=== PATIENT | female | born 1965 | race Caucasian/White ===

== ENCOUNTER 2023-10-21 12:17 | Emergency (ER) | payer MEDICARE, SELFPAY ==
[2023-10-21 12:35] VITALS: BP 134/79; PULSE 88; TEMP 37.3; O2SAT 97; BMI 33.0
--- NOTE | 2023-10-21 12:45 | PC.NURSE ---
pt scratched left lower leg due to an itch. scratched over varicose vein, area started to bleed. pt denies any pain.
--- NOTE | 2023-10-22 11:33 | ED_ITS ---
HPI HPI - General Adult General Chief complaint: Extremity Problem, Nontraumatic Stated complaint: LOWER EXTREMITY LEFT INJURY Time Seen by Provider: 10/21/23 12:38 Source: patient Mode of arrival: Wheelchair Limitations: no limitations History of Present Illness HPI narrative: 58-year-old female to the emergency department with chief complaint of bleeding from her leg. Patient reports that she scratched her leg and believes that she scratched open a varicose vein. She reports a significant amount of bleeding from the site that was not controlled with pressure at home prompting her ED visit. She is not on any blood thinners. She is otherwise at her baseline health. Related Data Home Medications ?Medication ?Instructions ?Recorded ?Confirmed albuterol sulfate 90 mcg/actuation inhalation 10/21/23 aerosol inhaler (Yi Chang Ou Sai IT HFA) aspirin 81 mg chewable tablet 81 mg PO DAILY 10/21/23 10/21/23 (Issac Chewable Low Dose Aspirin) atorvastatin 20 mg tablet mg 10/21/23 metoprolol succinate 100 mg mg PO 10/21/23 tablet,extended release 24 hr Allergies Allergy/AdvReac Type Severity Reaction Status Date / Time Penicillins Allergy Mild Rash Verified 10/21/23 12:39 prednisone Allergy Mild Rash Verified 10/21/23 12:39 Opioid HPI Opioid Management Most Recent Opioid Data: No Data to Display Review of Systems ROS Status of ROS 10 or more systems reviewed and unremark able except as noted in history and below Exam Narrative Exam Narrative: VITALS: I have reviewed the triage vital signs. GENERAL: Well developed, well appearing adult in no acute distress. NEURO: Alert and oriented. Moves all extremities. Face is symmetric and expressive. EYES: PERRL. No scleral icterus or conjunctival injection. No discharge. HENT: Normocephalic, atraumatic. Hearing is grossly intact. Nares grossly patent and without discharge. Mucous membranes moist. NECK: No JVD. Patient moves neck without restriction. Left lower extremity: DP and PT pulses are intact. Limb is similar color and temperature to contralateral extremity. Over the mid lateral lower leg there is a small superficial vein which appears to be excoriated, no active bleeding at this time. No evidence of infection. SKIN: Warm and dry. Normal turgor. No rash or lesions appreciated. PSYCH: Mood, affect, and interaction is appropriate to the setting. Constitutional Vital Signs, click to edit/add: Last Vital Signs Temp 99.2 F 10/21/23 12:35 Pulse 88 10/21/23 12:35 Resp 18 10/21/23 12:35 BP 134/79 10/21/23 12:35 Pulse Ox 97 10/21/23 12:35 O2 Del Method Room Air 10/21/23 12:35 Course Vital Signs Vital signs: Vital Signs Temperature 99.2 F 10/21/23 12:35 Pulse Rate 88 10/21/23 12:35 Respiratory Rate 18 10/21/23 12:35 Blood Pressure 134/79 10/21/23 12:35 Pulse Oximetry 97 10/21/23 12:35 Oxygen Delivery Method Room Air 10/21/23 12:35 Temperature 99.2 F 10/21/23 12:35 Pulse Rate 88 10/21/23 12:35 Respiratory Rate 18 10/21/23 12:35 Blood Pressure 134/79 10/21/23 12:35 Pulse Oximetry 97 10/21/23 12:35 Oxygen Delivery Method Room Air 10/21/23 12:35 Medical Decision Making MDM Narrative Medical decision making narrative: 58-year-old female with bleeding to her leg. Vital stable, the patient is afebrile. Not on blood thinners. The lower extremity is neurovascularly intact. There is a small superficial varicose vein which appears to be the previous source of bleeding. Area was cleansed and prepped by nursing staff. Several layers of skin glue were applied to control the bleeding and provide a protective barrier. Small dressing was placed. Return precautions were discussed. All questions were answered. The patient was discharged home. Discharge Plan Discharge Stand Alone Forms: Portal Instructions Chief Complaint: Extremity Problem, Nontraumatic Clinical Impression: Bleeding from varicose vein Patient Disposition: Home, Self-Care Time of Disposition Decision: 12:49 Condition: Good Mode of Transportation: Private Vehicle Prescriptions / Home Meds: No Action albuterol sulfate [Ventolin HFA] 90 mcg/actuation HFA aerosol inhaler INHALATION atorvastatin 20 mg tablet metoprolol succinate 100 mg tablet extended release 24 hr PO aspirin [Issac Chewable Aspirin] 81 mg tablet,chewable 81 mg PO DAILY Print Language: Sami Instructions: Venous Insufficiency (DC) Additional Instructions: If rebleeding occurs hold steady pressure for 20 to 30 minutes over the area. If it continues to bleed return to the ER. Referrals: Estefani Em MD [Primary Care Provider] - 1 week Discharge Date/Time: 10/21/23 13:02
== END 2023-10-21 13:02 | disposition home or self-care (01) ==
PROVIDERS: Emergency Provider Student in an Organized Health Care Education/Training Program; PCP Family Medicine
DX: I83.892 Varicose veins of left lower extremity with other complications (principal)
CPT/HCPCS: 12001; 99281

== ENCOUNTER 2024-05-28 09:05 | Outpatient (OUT) | payer MEDICARE, SELFPAY ==
[2024-05-28 09:42] LABS: Basophils Percent Auto 0.2 % (0.2-2.0); Eosinophils Absolute Auto 0.1 10^3/uL (0.0-0.7); Eosinophils Percent Auto 1.1 % (0.9-7.0); Hematocrit 40.2 % (36.0-48.0); Hemoglobin 13.2 g/dL (12.0-16.0); Immature Granulocytes Abs Auto 0.01 10^3/uL (0.00-0.03); Immature Granulocytes Pct Auto 0.2 % (0.0-0.5); Lymphocytes Absolute Auto 2.3 10^3/uL (1.2-3.8); Lymphocytes Percent Auto 34.6 % (20.5-60.0); Mean Corpuscular HGB Conc 32.8 g/dL (29.9-35.2); Mean Corpuscular Hemoglobin 30.6 pg (26.7-34.0); Mean Corpuscular Volume 93.1 fL (81.0-99.0); Mean Platelet Volume 11.5 fL (9.5-13.5); Monocytes Absolute Auto 0.6 10^3/uL (0.3-0.8); Monocytes Percent Auto 8.4 % (1.7-12.0); Neutrophils Absolute Auto 3.7 10^3/uL (1.4-6.5); Neutrophils Percent Auto 55.5 % (43.0-75.0); Platelet Count 220 10^3/uL (150-450); Red Blood Count 4.32 10^6/uL (4.20-5.40); Red Cell Distribution Width 13.2 % (11.0-15.0); White Blood Count 6.6 10^3/uL (4.0-11.0)
[2024-05-28 10:32] LABS: Alanine Aminotransferase 15 U/L (14-59); Albumin Globulin Ratio 0.9; Albumin Level 3.5 g/dL (3.4-5.0); Alkaline Phosphatase 115 U/L (46-116); Anion Gap 10.2; Aspartate Amino Transferase 10 U/L (15-37); BUN Creatinine Ratio 18.8; Bilirubin Total 0.3 mg/dL (0.2-1.0); Calcium 8.6 mg/dL (8.5-10.1); Chloride 108 mmol/L (98-107); Chol HDL Ratio 2.8; Cholesterol 143 mg/dL (<=200); Estimated GFR (African America >60 (>=60 mL/min/1.73m^2); Estimated GFR (Non-African Ame >60 (>=60 mL/min/1.73m^2); Globulin 3.7 g/dL; Glucose 103 mg/dL (74-106); HDL Cholesterol 52 mg/dL (40-60); LDL Cholesterol Calculated 79.4 mg/dL; Potassium 4.2 mmol/L (3.5-5.1); Sodium 143 mmol/L (136-145); TSH W/ REFLEX FT4 2.283 uIU/mL (0.358-3.740); Total Protein 7.2 g/dL (6.4-8.2); Triglycerides 58 mg/dL (<=150); VLDL CHOLESTEROL 11.6 mg/dL
--- OUTSIDE RECORDS SUMMARY | 2024-05-29 09:22 | XMS_ITS | CCD ---
Author Organization [facility] Care Team Providers Care Operations Manager Station Name Role Phone Clair Dahl MD Primary Care Provider Kareem Lagunas Unavailable Clair Dahl MD Primary Care Provider [phone] Clair Dahl MD Primary Care Provider Clair Dahl Unavailable MISC, DR WEBB Attending Unavailable NABILA, DR CLAIR Wisdom Primary Care Unavailable MISC, DR WEBB Admitting Unavailable SARAH JEAN Admitting Unavailable SARAH JEAN Attending Unavailable NABILA, DR CLAIR Wisdom Primary Care Unavailable NIA BARAKAT Attending Unavailable YUVAL, NIA Consulting Unavailable NIA BARAKAT Admitting Unavailable NABILA, DR CLAIR Wisdom Primary Care Unavailable NANCY MARTEL Consulting Unavailable MARKER ., DR HARDING Consulting Unavailable MARKER ., DR HARDING Admitting Unavailable MARKER ., DR HARDING Attending Unavailable DAHL, DR CLAIR Wisdom Primary Care Unavailable CONRAD ., ALDEN Consulting Unavailable BRIEN, JAMES Consulting Unavailable NABILA, DR CLAIR Wisdom Primary Care Unavailable MISC, DR WEBB Attending Unavailable MISC, DR WEBB Consulting Unavailable MISC, DR WEBB Admitting Unavailable ZIEBER, DR MAGGI Griffiths Consulting Unavailable SARAH JEAN Admitting Unavailable SARAH JEAN Attending Unavailable NABILA, DR CLAIR Wisdom Primary Care Unavailable SARAH JEAN Consulting Unavailable SAMMIE ARTHUR Consulting Unavailable SAARH JEAN Admitting Unavailable SARAH JEAN Attending Unavailable MOBILE, DR ALONSO Shelley Consulting Unavailable NABILA, DR CLAIR Wisdom Primary Care Unavailable SARAH JEAN Consulting Unavailable MD Clair Dahl Primary Care Provider [phone] DO Tuan Gonzalez Attending Provider [phone] Clair Dahl MD Primary Care Provider GIOVANI MARIA Attending Unavailable GIOVANI MARIA Attending Unavailable GIOVANI MARIA Attending Unavailable GIOVANI MARIA Attending Unavailable GIOVANI MARIA Attending Unavailable CAROLINE CARRION Attending Unavailable CLAIR DAHL Primary Care Unavailable CLAIR DAHL Primary Care Unavailable VIJAY ACUNA Attending Unavailable CAROLINE CARRION Attending Unavailable CLAIR DAHL Primary Care Unavailable ERIKA BUCKNER Attending Unavailable CLAIR DAHL Primary Care Unavailable CLAIR DAHL Primary Care Unavailable CAROLINE CARRION Referring Unavailable CAROLINE CARRION Attending Unavailable ACUNA, VIRENKUMAR MBan Referring Unavailable ACUNAYOEL NEGRETENKJULITO MBan Attending Unavailable CLAIR DAHL Primary Care Unavailable Tuan Gonzalez Admitting Unavailable Tuan Gonzalez Attending Unavailable Clair Dahl Primary Care Unavailable Clair Dahl Admitting Unavailable Clair Dahl Attending Unavailable Clair Dahl MD Attending Provider Allergies Allergy Classification Reported Allergen(s) Allergy Type Date of Onset Reaction(s) Facility Corticosteroids (1 source) predniSONE Drug Allergy 07-03-19 [facility] Penicillins (antibiotic) (1 source) Penicillins Drug Allergy 07-03-19 Unknown Reaction [facility] (18 sources) Penicillins; Translations: [PENICILLINS] Propensity to adverse reactions to drug 01-06-20 15 Unknown Reaction [facility] (20 sources) Penicillins Propensity to adverse reactions to drug 01-06-20 15 Nausea and vomiting [facility] (4 sources) Penicillin V Drug Allergy Unknown [facility] Other (10 sources) Penicillin Drug Allergy Unknown [employer] [facility] Other (1 source) Penicillins Drug allergy (disorder) 07-16-19 14 [facility] (20 sources) predniSONE; Translations: [PREDNISONE] Drug Allergy 06-29-19 [facility] (1 source) Penicillins Drug allergy (disorder) 07-03-19 [facility] Repository (1 source) predniSONE Drug Allergy 07-03-19 [facility] Repository Medications Current Medications Medication Drug Class(es) Dates Sig (Normalized) Sig (Original) acetaminophen 325 mg / HYDROcodone bitartrate 5 mg oral tablet (20 sources) Opioid Agonist Start: 03-07-2024 End: 03-12-2024 take 1 tablet by mouth every eight hours as needed for pain HYDROcodone-aceta minophen (NORCO) 5-325 mg per tablet Indications: Acute bilateral low back pain without sciatica Take 1 (one) tablet by mouth every 8 (eight) hours as needed for pain Can cause drowsiness. . 15 tablet 03/07/2024 03/12/2024 Active Start: 09-08-2022 End: 09-15-2022 take 1 tablet by mouth every six hours as needed for pain HYDROcodone-acetaminophen (NORCO) 5-325 mg per tablet Indications: Status post insertion of spinal cord stimulator , Status post lumbar discectomy Take 1 (one) tablet by mouth every 6 (six) hours as needed for pain . 28 tablet 0 09/08/2022 09/15/2022 Active Start: 03-03-2021 End: 07-04-2021 HYDROcodone-acetaminophen (N ORCO) 5-325 mg per tablet Start: 02-24-2021 End: 05-23-2024 take 1 tablet by mouth three times daily as needed for pain Hydrocodone-Acetaminophen 5-325 mg table t Discontinued 1 TAB PO Three times daily as needed for Pain February 24, 2021 1:00am May 23, 2024 11:55am acetaminophen 325 mg / oxyCODONE hydrochloride 5 mg oral tablet (6 sources) Opioid Agonist Start: 08-25-2022 End: 08-28-2022 take 1 tablet by mouth once as needed, then take 2 tablets by mouth every six hours as needed oxyCODONE-acetaminophen (PERCOCET) 5-325 mg per tablet Indications: Failed back syndrome, lumbosacral , S/P insertion of spinal cord stimulator Take 1 (one) tablet to 2 (two) tablets by mouth every 6 (six) hours as needed Causes Drowsiness. . 20 tablet 0 08/25/2022 08/28/2022 Active Start: 08-24-2022 End: 08-25-2022 take 1-2 tablets by mouth every four hours as needed 1-2 tablet, Oral, Every 4 hours PRN, moderate to severe pain, Starting on [place] 08/24/22 at 1445 [] Initiate with 1 tablet oral every 4 hours prn moderate to severe pain. [] For unrelieved pain, may repeat one tablet oral dose within 60 minutes of initial dose. [] If pain is RELIEVED after repeat dose, change to two tablets of 5/325 mg oral every 4 hours prn moderate to severe pain. [] If pain is UNrelieved after repeat dose, or patient requires dose reduction, call physician. Start: 01-13-2022 End: 01-16-2022 oxyCODONE-acetaminophen (PER COCET) 5-325 mg per tablet Indications: Lumbar disc herniation with radiculopathy Take 1 (one) tablet by mouth every 6 (six) hours as needed for pain (Days supply per fill: 3) . 12 tablet 0 01/13/2022 01/16/2022 Active [id number] 200 actuat albuterol 0.09 mg/actuat metered dose inhaler (15 sources) beta2-Adrenergic Agonist Start: 06-20-2023 take 2 puff(s) by inhalation every four hours as needed Albuterol Sulfate 90 mcg/actuation HFA aerosol inhaler Active 2 PUFF INHALATION Every 4 hours June 20, 2023 12:00am [employer] puff Inhalation every 4 hrs prn; Note: Source Status: Start; Refills: 0; Qty: 1 Each; Provider: Nabila Wisdom Start: 06-19-2023 End: 06-18-2024 take 2 puff(s) by inhalation every four to six hours as needed for wheezing albuterol (Ventolin HFA) 90 mcg/actuation inhaler Inhale 2 (two) puffs every 4 to 6 hours as needed for wheezing or shortness of breath . 18 g 1 06/19/2023 06/18/2024 Active Start: 02-22-2023 take 2 puff(s) by in halation every four hours as needed Albuterol Sulfate HFA 108 (90 Base) MCG/ACT 2 puff Inhalation every 4 hrs prn Feb, Active aspirin 81 mg chewable tablet (20 sources) Platelet Aggregation Inhibitor, Nonsteroidal Anti-inflammatory Drug Start: 10-17-2023 End: 10-17-2023 aspirin 81 mg chewable tablet Chew and Swallow 1 (one) tablet (81 mg total) daily . 90 tablet 3 10/17/2023 Active Start: 06-20-2023 take 1 tablet by radha th once daily Aspirin 81 mg tablet,delayed release (DR/EC) Active 81 MG PO Daily June 20, 2023 12:00am Free[employer] tablet Orally Once a day; Note: Source Status: Taking; Provider: Nabila Jara ( ) End: 08-01-2022 take 1 tablet by mouth every twenty-four hours Aspirin 81 MG 1 tablet Orally Once a day Active atorvastatin 20 mg oral tablet (20 sources) HMG-CoA Reductase Inhibitor Start: 08-06-2021 End: 10-16-2024 take 1 tablet by mouth once daily Atorvastatin 20 mg tablet Active 1 TAB PO Daily June 20, 2023 12:00am [employer] tablet Orally Once a day; Note: Source Status: Taking; Provider: Nabila Jara ( ) azithromycin 250 mg oral tablet (1 source) Macrolide Antimicrobial Start: 02-22-2023 Azithromycin 250 MG as directed Orally 2 tabs po today, then 1 tab daily x 4 more days for 5 Feb, Active ciprofloxacin 500 mg oral tablet (4 sources) Quinolone Antimicrobial Start: 08-01-2022 End: 08-08-2022 take 1 tablet by mouth once daily ciprofloxacin HCl (CIPRO) 500 MG tablet Take 1 (one) tablet (500 mg total) by mouth daily for 7 days . 7 tablet 0 08/01/2022 08/08/2022 Active cyclobenzaprine hydrochloride 5 mg oral tablet (10 sources) Muscle Relaxant Start: 09-08-2022 End: 10-08-2022 take 1 tablet by mouth three times daily as needed for muscle spasms cyclobenzaprine (FLEXERIL) 5 MG tablet Indications: Failed back syndrome, lumbosacral , Status post lumbar discectomy Take 1 (one) tablet (5 mg total) by mouth 3 (three) times a day as needed for muscle spasms . 90 tablet 0 09/08/2022 10/08/2022 Active Start: 08-24-2022 End: 09-04-2022 take 1 tablet by mouth every eight hours cyclobenzaprine (FLEXERIL) 10 MG tablet Take 1 (one) tablet (10 mg total) by mouth every 8 (eight) hours Causes drowsiness. for 10 days . 30 tablet 0 08/25/2022 09/04/2022 Active Start: 01-13-2022 End: 01-23-2022 take 1 tablet by mouth three times daily as needed for muscle spasms cyclobenzaprine (FLEXERIL) 10 MG tablet Take 1 (one) tablet (10 mg total) by mouth 3 (three) times a day as needed for muscle spasms . 30 tablet 0 01/13/2022 01/23/2022 Active docusate sodium 50 mg / sennosides, fdc 8.6 mg oral tablet (4 sources) Start: 08-25-2022 End: 09-08-2022 take 2 tablets by mouth once daily for constipation senna-docusate (SENNA-S) 8.6-50 mg Take 2 (two) tablets by mouth daily For constipation for 14 days . 28 tablet 0 08/25/2022 09/08/2022 Active Start: 08-24-2022 End: 08-25-2022 take 1 tablet by mouth twice daily 2 tablet, Oral, 2 times daily, First dose on Christina 08/24/22 at 2100 [] Hold for loose stools. Do Not Crush or Chew if administering orally due to bitter taste. May be crushed if given via tube. doxycycline hyclate 100 mg oral tablet (4 sources) Tetracycline-class Drug Start: 11-02-2022 End: 11-09-2022 take 1 tablet by mouth twice daily doxycycline hyclate (VIBRA-TABS) 100 MG tablet Take 1 (one) tablet (100 mg total) by mouth 2 (two) times a day for 7 days . 14 tablet 0 11/02/2022 11/09/2022 Active empagliflozin 10 mg oral tablet (9 sources) Sodium-Glucose Cotransporter 2 Inhibitor Start: 09-01-2021 End: 12-29-2021 take 1 tablet by mouth once daily empagliflozin (Jardiance) 10 mg Tab Take 1 (one) tablet (10 mg total) by mouth daily . 30 tablet 11 09/01/2021 12/29/2021 Discontinued (Cost of medication) inhalational spacing device inhaler (7 sources) Start: 06-19-2023 End: 06-18-2024 inhalational spacing device inhaler Use as instructed . 1 each 2 06/19/2023 06/18/2024 Active levoFLOXacin 500 mg oral tablet (1 source) Quinolone Antimicrobial take 1 tablet by mouth every twenty-four hours levoFLOXacin 500 MG 1 tablet Orally Once a day for 7 days Active loratadine 10 mg oral tablet (17 sources) Start: 06-20-2023 take 1 tablet by mouth once daily Loratadine 10 mg tablet Active 1 TAB PO Daily June 20, 2023 12:00am Free[employer] tablet Orally Once a day; Note: Source Status: Taking; Provider: Nabila Jara ( ) take 1 tablet by radha th every twenty-four hours Loratadine 10 MG 1 tablet Orally Once a day Active loratadine 10 mg Tab 10 mg, pseudoePHEDrine 120 mg TbER 120 mg (20 sources) loratadine 10 mg Tab 10 mg, pseudoePHEDrine 120 mg TbER 120 mg Take by mouth as needed . Active loratadine 10 mg Tab 10 mg, pseudoePHEDrine 120 mg TbER 120 mg Take by mouth as needed . 0 loratadine 10 mg Tab 10 mg, pseudoePHEDrine 120 mg TbER 120 mg Take by mouth as needed . 0 Active loratadine 10 mg Tab 10 mg, pseudoePHEDrine 120 mg TbER 120 mg Take by mouth daily . 0 Active 24 hr metoprolol succinate 50 mg extended release oral tablet (20 sources) beta-Adrenergic April Start: 06-19-2023 End: 10-17-2023 take 1 tablet by mouth once daily Metoprolol Succinate 50 mg tablet extended release 24 hr Active 50 MG PO Daily June 20, 2023 12:00am FreeTextSi tablet Orally Once a day; Note: Source Status: Taking; Provider: Nabila Jara ( ) Start: 06-05-2022 End: 06-19-2023 take 1 tablet by mouth once daily metoprolol succinate (TOPROL-XL) 100 MG 24 hr tablet Indications: Chronic systolic HF (heart failure) (HCC) Take 1 (one) tablet (100 mg total) by mouth daily . 90 tablet 3 05/31/2023 06/19/2023 Discontinued (Reorder (Suppress CancelRx Message to Pharmacy)) Start: 09-20-2021 End: 09-20-2022 take 1.5 tablets by mouth every twenty-four hours, then take 0.5 tablet by mouth once daily metoprolol succinate (TOPROL-XL) 50 MG 24 hr tablet Indications: Chronic systolic HF (heart failure) (HCC) Take 1.5 (one and a half) tablets (75 mg total) by mouth daily . 135 tablet 1 04/17/2022 06/05/2022 Discontinued (Reorder (Suppress CancelRx Message to Pharmacy)) Start: 08-03-2021 End: 08-03-2022 take 1 tablet by mouth once daily metoprolol succinate (TOPROL-XL) 50 MG 24 hr tablet Indications: Chronic systolic HF (heart failure) (HCC) Take 1 (one) tablet (50 mg total) by mouth daily . 30 tablet 5 08/03/2021 08/03/2022 Active Start: 07-06-2021 End: 11-09-2022 take 1 tablet by mouth once daily metoprolol succinate (TOPROL-XL) 25 MG 24 hr tablet Take 1 (one) tablet (25 mg total) by mouth daily . 30 tablet 0 11/09/2021 12/29/2021 Discontinued (Dose adjustment) mupirocin 0.02 mg/mg topical ointment (6 sources) RNA Synthetase Inhibitor Antibacterial Start: 11-01-2022 End: 11-08-2022 mupirocin (BACTROBAN) 2 % ointment Apply topically 2 (two) times a day for 7 days . 22 g 0 11/01/2022 11/08/2022 Active naloxone (NARCAN) 4 mg/actuation [place] (3 sources) Start: 03-07-2024 naloxone (NARC AN) 4 mg/actuation [place] Administer 1 spray into one nostril for known or suspected opioid overdose. If patient worsens or does not respond, may repeat in 2-3 minutes. . 2 each 03/07/2024 Active tiZANidine 2 mg oral capsule (20 sources) Central alpha-2 Adrenergic Agonist Start: 11-16-2022 End: 12-16-2022 take 1 capsule by mouth three times daily as needed for muscle spasms tiZANidine (ZANAFLEX) 2 MG capsule Take 1 (one) capsule (2 mg total) by mouth 3 (three) times a day as needed for muscle spasms . 90 capsule 0 11/16/2022 12/16/2022 Active Start: 01-13-2022 End: 01-13-2023 take 1 tablet by mouth three times daily as needed for muscle spasms tiZANidine (ZANAFLEX) 2 MG tablet Indications: Status post insertion of spinal cord stimulator Take 1 (one) tablet (2 mg total) by mouth 3 (three) times a day as needed for muscle spasms . 30 tablet 0 10/04/2022 10/14/2022 Active Start: 02-24-2021 take 1 tablet by radha th once daily as needed for pain Tizanidine 4 mg tablet Active 4 MG PO Daily as needed for Pain February 24, 2021 1:00am Completed/Discontinued Medications Medication Drug Class(es) Dates Sig (Normalized) Sig (Original) acetaminophen 325 mg oral tablet (20 sources) Start: 08-24-2022 End: 08-25-2022 take 1 tablet by mouth every four hours as needed for pain 650 mg, Oral, Every 4 hours PRN, mild pain, fever 100.4 F or greater, Starting on [facility] 08/24/22 at 1445 take 1 tablet by radha th every six hours as needed for pain acetaminophen (TYLENOL) 500 MG tablet Ta ke 1 (one) tablet (500 mg total) by mouth every 6 (six) hours as needed for pain . Active ALPRAZolam 0.25 mg oral tablet (20 sources) Benzodiazepine Start: 06-20-2023 End: 06-22-2023 take 1 tablet by mouth once daily as needed Alprazolam 0.25 mg tablet Discontinued 0.25 MG PO Daily June 20, 2023 12:00am June 22, 2023 11:44am FreeTextSi tablet Orally daily prn; Note: Source Status: Taking; Refills: 0; Qty: 30 Tablet; Provider: Nabila Wisdom Start: 11-02-2022 take 1 tablet by radha th once daily as needed ALPRAZolam 0.25 MG 1 tablet Orally daily prn for 30 days Oct, Active Start: 03-07-2022 take 1 tablet by radha th once daily as needed ALPRAZolam 0.25 MG 1 tablet Orally daily prn for 30 days Mar, Active Start: 08-04-2021 take 1 tablet by radha th three times daily as needed ALPRAZolam (XANAX) 0.25 MG tablet Take 1 (one) tablet (0.25 mg total) by mouth 3 (three) times a day as needed . 08/04/2021 Active benzonatate 200 mg oral capsule (10 sources) Non-narcotic Antitussive Start: 06-20-2023 End: 06-22-2023 take 1 capsule by mouth three times daily Benzonatate 200 mg capsule Discontinued 1 CAP PO Three times daily June 20, 2023 12:00am June 22, 2023 11:30am FreeTextSi capsule Orally Three times a day; Note: Source Status: Taking; Refills: 0; Qty: 30 Capsule; Provider: Nabila Wisdmo Start: 01-09-2023 take 1 capsule by [facility] eight hours Benzonatate 200 MG 1 capsule Orally Three times a day for 10 day(s) Jan, Active calcium chloride 0.0014 meq/ml / potassium chloride 0.004 meq/ml / sodium chloride 0.103 meq/ml / sodium lactate 0.028 meq/ml injectable solution (3 sources) Start: 08-24-2022 End: 08-25-2022 take 100 mL intravenously every hour 100 mL/hr, Intravenous, Continuous, Starting on Sun08/24/22 at 1345, PACU (only) Start: 08-01-2022 End: 08-01-2022 take 100 mL intravenously every hour 100 mL/hr, Intravenous, Continuous, Starting on Sun08/01/22 at 1045, PACU (only) Start: 01-13-2022 End: 01-13-2022 take 100 mL intravenously every hour 100 mL/hr, Intravenous, Continuous, Starting on Sun01/13/22 at 1115, PACU (only) 50 ml clindamycin 18 mg/ml injection (1 source) Lincosamide Antibacterial Start: 08-24-2022 End: 08-25-2022 take 900 mg intravenously every eight hours 900 mg, Intravenous, at 100 mL/hr, Every 8 hours, First dose on [place] 08/24/22 at 1900, For 2 doses Starting 8 hours after pre-procedure dose x 2 doses. Indication (POST PROCEDURE): Neurology dapagliflozin 10 mg oral tablet (2 sources) Sodium-Glucose Cotransporter 2 Inhibitor Start: 08-31-2021 End: 09-01-2021 take 1 tablet by mouth once daily dapagliflozin (Farxiga) 10 mg tablet Take 1 (one) tablet (10 mg total) by mouth daily . 30 tablet 08/31/2021 09/01/2021 Discontinued (Formulary change) diphenhydrAMINE hydrochloride 25 mg oral tablet (20 sources) Histamine-1 Receptor Antagonist Start: 08-24-2022 End: 08-25-2022 take 1 tablet by mouth every four hours as needed 25 mg, Oral, Every 4 hours PRN, itching, Starting on [place] 08/24/22 at 1445 take 1 tablet by radha th once daily as needed for sleep diphenhydrAMINE (BENADRYL) 25 mg tablet Take 1 (one) tablet (25 mg total) by mouth nightly as needed for sleep . Active 1 ml fentaNYL 0.05 mg/ml injection (1 source) Opioid Agonist Start: 01-13-2022 End: 01-13-2022 25 mcg, Intravenous, Every 5 min PRN, Pain, Starting on Sun01/13/22 at 1022, For 4 doses, PACU (only) [] Do not give more than 100 mcg while in PACU. fentaNYL (SUBLIMAZE) inj syringe 25 mcg (1 source) Start: 08-24-2022 End: 08-24-2022 25 mcg, Intravenous, Every 5 min PRN, Pain, Starting on [place] 08/24/22 at 1257, For 4 doses, PACU (only) [] Do not give more than 100 mcg while in PACU. gabapentin 300 mg oral capsule (20 sources) Anti-epileptic Agent Start: 06-20-2023 End: 07-03-2023 take 1 capsule by mouth three times daily Gabapentin 300 mg capsule Discontinued 300 MG PO Three times daily June 20, 2023 12:00am July 03, 2023 1:37pm FreeTextSi capsule Orally three times daily; Note: Source Status: Taking; Provider: Nabila Jara ( ) Start: 11-01-2022 End: 06-19-2023 take 1 capsule by mouth every eight hours gabapentin (NEURONTIN) 300 MG capsule Take 1 (one) capsule (300 mg total) by mouth every 8 (eight) hours . 90 capsule 0 11/01/2022 06/19/2023 Discontinued (Patient's Request) Start: 09-08-2022 End: 09-08-2023 take 1 capsule by mouth three times daily gabapentin (NEURONTIN) 100 MG capsule Indications: Failed back syndrome, lumbosacral , Status post lumbar discectomy Take 1 (one) capsule (100 mg total) by mouth 3 (three) times a day . 90 capsule 11 09/08/2022 11/01/2022 Discontinued take [facility] capsule [facility] times daily Gabapentin 300 MG 1 capsule Orally three times daily Active 1 ml HYDROmorphone hydrochloride 1 mg/ml injection (4 sources) Opioid Agonist Start: 08-24-2022 End: 08-25-2022 take 0.25-0.5 mg intravenously every three hours as needed 0.25-0.5 mg, Intravenous, Every 3 hours PRN, moderate to severe pain, Starting on [place] 08/24/22 at 1445 [] Initiate with 0.25 mg IV every 3 hours prn moderate to severe pain. [] For unrelieved pain, may repeat 0.25 mg IV dose within 30 minutes of initial dose. [] If pain is RELIEVED after repeat dose, change to 0.5 mg IV every 3 hours prn moderate to severe pain. [] If pain is UNrelieved after repeat dose, or patient requires dose reduction, call physician. [] May use IV for breakthrough pain or if unable to tolerate oral route. Start: 08-24-2022 End: 08-24-2022 0.5 mg, Intravenous, Every 1 0 min PRN, Pain, Starting on [place] 08/24/22 at 1257, For 6 doses, PACU (only) Give if fentanyl not effective or not ordered. Do not give more than 3 mg total. Start: 08-01-2022 End: 08-01-2022 0.5 mg, Intravenous, Every 1 0 min PRN, Pain, Starting on 08/01/22 at 0951, For 6 doses, PACU (only) Give if fentanyl not effective or not ordered. Do not give more than 3 mg total. Start: 01-13-2022 End: 01-13-2022 0.5 mg, Intravenous, Every 5 min PRN, Pain, Starting on 01/13/22 at 1022, For 6 doses, PACU (only) Give if fentanyl not effective or not ordered. Do not give more than 3 mg total. ibuprofen 800 mg oral tablet (20 sources) Nonsteroidal Anti-inflammatory Drug Start: 01-05-2015 End: 08-25-2022 ibuprofen (ADVIL,MOTRIN) 800 MG tablet Take 600 mg by mouth 3 (three) times a day as needed . 0 01/05/2015 08/25/2022 Discontinued (Stop Taking at Discharge) Ibuprofen 800 MG /8ML as directed Intravenous Active lisinopril 5 mg oral tablet (3 sources) Angiotensin Converting Enzyme Inhibitor Start: 07-06-2021 End: 07-06-2022 take 1 tablet by mouth once daily lisinopriL (PRINIVIL,ZESTRIL) 5 MG tablet Indications: Chronic systolic HF (heart failure) (HCC) Take 1 (one) tablet (5 mg total) by mouth daily . 30 tablet 07/06/2021 07/25/2021 Discontinued magnesium hydroxide 80 mg/ml oral suspension (1 source) Start: 08-24-2022 End: 08-25-2022 take 2400 mg by mouth once daily as needed for constipation 2,400 mg (30 mL), Oral, Daily PRN, constipation, constipation, Starting on [place] 08/24/22 at 1445 1 ml meperidine hydrochloride 25 mg/ml cartridge (2 sources) Opioid Agonist Start: 08-01-2022 End: 08-01-2022 12.5 mg, Intravenous, Every 5 min PRN, shivering, Starting on Sun08/01/22 at 0951, For 2 doses, PACU (only) Do not give more than 25 mg total. RESTRICTED to use in rigors OR pain management in patients with a documented opioid allergy. Please select this medication s indication. [place] Start: 01-13-2022 End: 01-13-2022 12.5 mg, Intravenous, Every 5 min PRN, shivering, Starting on 01/13/22 at 1022, For 2 doses, PACU (only) Do not give more than 25 mg total. RESTRICTED to use in rigors OR pain management in patients with a documented opioid allergy. Please select this medication s indication. [place] naloxone hydrochloride 40 mg/ml nasal spray (20 sources) Opioid Antagonist Start: 11-01-2022 End: 06-19-2023 naloxone (NARCAN) 4 mg/actuation [place] Administer 1 spray into one nostril for known or suspected opioid overdose. If patient worsens or does not respond, may repeat in 2-3 minutes. . 2 each 0 11/01/2022 06/19/2023 Discontinued (Patient's Request) Start: 08-25-2022 End: 09-08-2022 naloxone (NARCAN) 4 mg/actua tion [place] Administer 1 spray into one nostril for known or suspected opioid overdose. If patient worsens or does not respond, may repeat in 2-3 minutes. . 2 each 0 08/25/2022 09/08/2022 Discontinued (Patient's Request) naloxone (NARCAN) injection 0.1 mg (3 sources) Start: 08-24-2022 End: 08-25-2022 naloxone (NARCAN) injection 0.1 mg Start: 08-01-2022 End: 08-01-2022 naloxone (NARCAN) injection 0.1 mg Start: 01-13-2022 End: 01-13-2022 naloxone (NARCAN) injection 0.1 mg 2 ml ondansetron 2 mg/ml injection (3 sources) Serotonin-3 Receptor Antagonist Start: 08-24-2022 End: 08-25-2022 take 4 mg intravenously every six hours as needed for nausea and vomiting 4 mg, Intravenous, Every 6 hours PRN, nausea, vomiting, Starting on Christina 08/24/22 at 1445 Start: 08-01-2022 End: 08-01-2022 take 4 mg intravenously every twenty-four hours as needed for nausea and vomiting 4 mg, Intravenous, Once as needed, nausea, vomiting, Starting on 08/01/22 at 0951, For 1 dose, PACU (only) Administer first as needed for nausea/vomiting, or as directed by anesthesia Start: 01-13-2022 End: 01-13-2022 take 4 mg intravenously every twenty-four hours as needed for nausea and vomiting 4 mg, Intravenous, Once as needed, nausea, vomiting, Starting on Sun01/13/22 at 1022, For 1 dose, PACU (only) Administer first as needed for nausea/vomiting, or as directed by anesthesia predniSONE 50 mg oral tablet (13 sources) Start: 02-24-2021 End: 06-22-2023 take 1 tablet by mouth once daily Prednisone 50 mg tablet Discontinued 50 MG PO Daily 07 07February 24, 2021 1:00am June 22, 2023 11:31am take 1 tablet by mouth twice ponce ly at mealtime prochlorperazine 5 mg/ml injectable solution (2 sources) Phenothiazine Start: 08-01-2022 End: 08-01-2022 take 5 mg intravenously every twenty-four hours as needed for nausea 5 mg, Intravenous, Once as needed, nausea, Starting on Sun08/01/22 at 0951, For 1 dose, PACU (only) Administer if ondansetron (Zofran), promethazine (Phenergan), and Metocolopramide (Reglan) ineffective or not ordered, or as directed by anesthesia, as needed for nausea/vomiting Start: 01-13-2022 End: 01-13-2022 take 5 mg intravenously every twenty-four hours as needed for nausea 5 mg, Intravenous, Once as needed, nausea, Starting on Sun01/13/22 at 1022, For 1 dose, PACU (only) Administer if ondansetron (Zofran), promethazine (Phenergan), and Metocolopramide (Reglan) ineffective or not ordered, or as directed by anesthesia, as needed for nausea/vomiting sacubitril 24 mg / valsartan 26 mg oral tablet (20 sources) Angiotensin 2 Receptor April Start: 06-20-2023 End: 06-22-2023 take 1 tablet by mouth once daily Sacubitril-Valsartan (Entresto) 24-26 mg tablet Discontinued 1 TAB PO Daily June 20, 2023 12:00am June 22, 2023 11:31am FreeTextSi tablet Orally daily; Note: Source Status: Taking; Provider: Nabila Jara ( ) Start: 10-04-2022 End: 04-16-2025 take 1 tablet by mouth twice daily Sacubitril-Valsartan (Entresto) 24-26 mg tablet Active 1 TAB PO Twice daily June 22, 2023 11:31am FreeTextSi tablet Orally daily; Note: Source Status: Taking; Provider: Nabila Jara ( ) Start: 07-25-2021 End: 10-02-2022 take 1 tablet by mouth twice daily sacubitriL-valsartan (Entresto) 24-26 mg per tablet Take 1 (one) tablet by mouth 2 (two) times a day . 180 tablet 3 08/31/2021 10/02/2022 Discontinued (Reorder (Suppress CancelRx Message to Pharmacy)) take 1 tablet by radha th every twenty-four hours Entresto 24-26 MG 1 tablet Orally daily Active sertraline 25 mg oral tablet (20 sources) Serotonin Reuptake Inhibitor Start: 06-22-2023 End: 01-07-2024 take 1 tablet by mouth once daily Sertraline 25 mg tablet Discontinued 25 MG PO Daily January 07, 2024 1:30pm January 07, 2024 2:45pm 1000 ml sodium chloride 9 mg/ml injection (4 sources) Start: 08-24-2022 End: 08-25-2022 take 75 mL intravenously every hour 75 mL/hr, Intravenous, Continuous, Starting on Christina 08/24/22 at 1545 Start: 08-24-2022 End: 08-25-2022 sodium chloride 0.9% (NS) Start: 08-01-2022 End: 08-01-2022 sodium chloride 0.9% (NS) Start: 01-13-2022 End: 01-13-2022 sodium chloride 0.9% (NS) sulfamethoxazole 800 mg / trimethoprim 160 mg oral tablet (20 sources) Dihydrofolate Reductase Inhibitor Antibacterial, Sulfonamide Antimicrobial Start: 05-08-2024 End: 05-23-2024 take 1 tablet by mouth twice daily Sulfamethoxazole-Trimethoprim 800-160 mg tablet Discontinued 1 TAB PO Twice daily May 08, 2024 1:00am May 23, 2024 11:50am Start: 11-01-2022 End: 06-19-2023 take 1 tablet by mouth twice daily sulfamethoxazole-trimethoprim (BACTRIM DS,SEPTRA DS) 800-160 mg per tablet Take 1 (one) tablet by mouth 2 (two) times a day . 14 tablet 0 11/01/2022 06/19/2023 Discontinued (Therapy completed) traZODone hydrochloride 50 mg oral tablet (1 source) Serotonin Reuptake Inhibitor Start: 08-24-2022 End: 08-25-2022 take 50 mg by mouth once daily as needed for sleep 50 mg, Oral, Nightly PRN, sleep, Starting on Christina 08/24/22 at 1445 [] May repeat once in 30 minutes if still awake. Problems Active Problems Problem Classification Problem Date Documented Date Episodic/Chronic Allergic reactions (1 source) Allergic contact dermatitis due to adhesives Episodic Anxiety disorders (20 sources) Anxiety; Translations: [Anxiety disorder, unspecified] Onset: 2 01-02-2022 Chronic Chronic obstructive pulmonary disease and bronchiectasis (2 sources) Bronchitis, not specified as acute or chronic Episodic Conduction disorders (1 source) Left bundle branch block; Translations: [Left bundle-branch block, unspecified] Chronic Congestive heart failure; nonhypertensive (20 sources) Chronic systolic heart failure; Translations: [Chronic systolic (congestive) heart failure] Onset: 2 Chronic Coronary atherosclerosis and other heart disease (1 source) Coronary atherosclerosis; Translations: [Atherosclerotic heart disease of wiyot coronary artery without angina pectoris] Chronic Disorders of lipid metabolism (4 sources) Hyperlipidemia; Translations: [Hyperlipidemia, unspecified] Chronic Essential hypertension (20 sources) Hypertensive disorder; Translations: [Essential (primary) hypertension] Onset: 2 Chronic Genitourinary symptoms and ill-defined conditions (8 sources) Dysuria; Translations: [Dysuria] Onset: 5 05-08-2024 Episodic Miscellaneous mental health disorders (1 source) Adjustment insomnia Episodic Osteoarthritis (5 sources) Arthritis of acromioclavicular joint; Translations: [Primary osteoarthritis, right shoulder] 08-28-2023 Chronic Other acquired deformities (20 sources) Scoliosis deformity of spine; Translations: [Scoliosis, unspecified] Onset: 3 Chronic Other acquired deformities (1 source) Scoliosis of lumbar spine; Translations: [Scoliosis, unspecified] 05-31-2022 Chronic Other acquired deformities (5 sources) Contracture of joint of left ankle; Translations: [Contracture, left ankle] 12-17-2023 Chronic Other connective tissue disease (5 sources) Plantar fascial fibromatosis; Translations: [PLANTAR FASCIAL FIBROMATOSIS] Onset: 3 Episodic Other connective tissue disease (1 source) Achilles tendinitis, left leg; Translations: [ACHILLES TENDINITIS LEFT LEG] Onset: 3 Episodic Other connective tissue disease (5 sources) Pain in left foot; Translations: [PAIN IN LEFT FOOT] Onset: 3 Episodic Other connective tissue disease (2 sources) Neuralgia and neuritis, unspecified Episodic Other connective tissue disease (6 sources) Disorder of rotator cuff; Translations: [Unspecified rotator cuff tear or rupture of right shoulder, not specified as traumatic] 07-03-2023 Episodic Other connective tissue disease (3 sources) Biceps tendinitis; Translations: [Bicipital tendinitis, right shoulder] 07-03-2023 Episodic Other connective tissue disease (7 sources) Bicipital tendinitis, right shoulder; Translations: [Bicipital tenosynovitis] 07-03-2023 Episodic Other connective tissue disease (4 sources) Unspecified rotator cuff tear or rupture of right shoulder, not specified as traumatic; Translations: [Disorders of bursae and tendons in shoulder region, unspecified] 07-03-2023 Episodic Other connective tissue disease (5 sources) Plantar fasciitis; Translations: [Plantar fascial fibromatosis] 12-17-2023 Episodic Other lower respiratory disease (1 source) Dyspnea on exertion; Translations: [Other forms of dyspnea] 06-19-2023 Episodic Other nervous system disorders (14 sources) Chronic pain; Translations: [Other chronic pain] Chronic Other nervous system disorders (2 sources) Other chronic pain Onset: 2 Resolved: 2 Chronic Other nervous system disorders (20 sources) Neuropathy; Translations: [Polyneuropathy, unspecified] Onset: 3 09-08-2022 Chronic Other nervous system disorders (1 source) Carpal tunnel syndrome of left wrist; Translations: [Carpal tunnel syndrome, left upper limb] 02-06-2023 Chronic Other nervous system disorders (1 source) Other abnormalities of gait and mobility; Translations: [OTHER ABNORMALITIES GAIT AND MOBILITY] Onset: 3 Episodic Other nervous system disorders (3 sources) Ellison's reflex positive; Translations: [Abnormal reflex] 12-13-2022 Episodic Other nervous system disorders (2 sources) Paresthesia of upper limb; Translations: [Anesthesia of skin] 12-13-2022 Episodic Other non-traumatic joint disorders (12 sources) Pain in right shoulder; Translations: [Right shoulder pain] Onset: 4 06-22-2023 Episodic Other nutritional; endocrine; and metabolic disorders (20 sources) Obese class I; Translations: [Obesity, unspecified] Onset: 2 07-04-2021 Chronic Other nutritional; endocrine; and metabolic disorders (1 source) Weight increased; Translations: [Abnormal weight gain] 05-23-2024 Episodic Other nutritional; endocrine; and metabolic disorders (1 source) Abnormal weight gain; Translations: [Abnormal weight gain] 05-23-2024 Episodic Residual codes; unclassified (1 source) Postprocedural state finding; Translations: [Presence of other specified functional implants] 08-04-2022 Chronic Residual codes; unclassified (7 sources) H/O Spinal surgery; Translations: [Presence of other specified functional implants] 08-25-2022 Chronic Residual codes; unclassified (4 sources) Presence of other specified functional implants; Translations: [Presence of other specified functional implants] Onset: 5 Chronic Residual codes; unclassified (4 sources) History of lumbar discectomy; Translations: [Other specified postprocedural states] Episodic Residual codes; unclassified (1 source) H/O Spinal surgery; Translations: [Other specified postprocedural states] Episodic Residual codes; unclassified (5 sources) Other specified postprocedural states; Translations: [OTH SPECIFIED POSTPROCEDURAL STATES] Onset: 3 Episodic Spondylosis; intervertebral disc disorders; other back problems (20 sources) Arthropathy of lumbar facet joint; Translations: [Spondylosis without myelopathy or radiculopathy, lumbar region] Onset: 2 Resolved: 2 Chronic Spondylosis; intervertebral disc disorders; other back problems (20 sources) Lumbar radiculopathy; Translations: [Radiculopathy, lumbar region] Onset: 2 Resolved: 2 Episodic Comment on above: Problem List clean-u p per request of Phys. EHR Cmte Substance-related disorders (1 source) Nicotine dependence, cigarettes, uncomplicated; Translations: [NICOTINE DEPEND CIGARETTES UNCOMP] Onset: 2 Chronic Unclassified (1 source) Low back pain, unspecified; Translations: [Low back pain, unspecified] Onset: 5 Past or Other Problems Problem Classification Problem Date Documented Date Episodic/Chronic Nonspecific chest pain (10 sources) Chest pain, unspecified; Translations: [Chest discomfort] Onset: 08-05-2021 Episodic Other aftercare (1 source) Other longterm (current) drug therapy; Translations: [OTH ORACLE IDENTITY MANAGEMENT CONSULTANT CURRENT DRUG THERAPY] Onset: 01-05-2022 Episodic Other aftercare (1 source) half-way (current) use of aspirin; Translations: [FPC CURRENT USE OF ASPIRIN] Onset: 01-05-2022 Episodic Other lower respiratory disease (1 source) Shortness of breath; Translations: [SHORTNESS OF BREATH] Onset: 08-05-2021 Episodic Other lower respiratory disease (4 sources) Other forms of dyspnea; Translations: [Other forms of dyspnea] Onset: 06-19-2023 Episodic Other screening for suspected conditions (not mental disorders or infectious disease) (20 sources) Electrocardiogram abnormal; Translations: [Abnormal electrocardiogram [ECG] [EKG]] Onset: 07-04-2021 07-04-2021 Episodic Pleurisy; pneumothorax; pulmonary collapse (1 source) Pleurisy; Translations: [PLEURISY] Onset: 01-05-2022 Episodic Residual codes; unclassified (20 sources) Tobacco user; Translations: [Tobacco use] Onset: 05-23-2021 Episodic Unclassified (1 source) Low back pain, unspecified; Translations: [Low back pain, unspecified] Onset: 03-07-2024 Results Test Name Value Interpretation Reference Range Facility Laboratory - Chemistry and C hemistry - challengeon 05-08-2024 Bilirubin Ql (U) Negative [facility] Glucose (U) [Mass/Vol] Negative [facility] Ketones Ql (U) Negative [facility] pH (U) 5 [pH] [facility] Specific gravity (U) [Rel density] 1.005 [facility] Urobilinogen (U) [Mass/Vol] 0.2 mg/dL [facility] Laboratory - Specimen inform ationon 05-08-2024 Appearance (U) clear [facility] Color (U) yellow [facility] Laboratory - Urinalysison Leukocyte esterase Test strip Ql (U) Negative [facility] Nitrite Ql (U) Negative [facility] Protein Ql (U) Negative [facility] No Panel Informationon 05-08 Urine Occult Blood ++ [facility] Urine Cultureon 05-08-2024 Bacteria identified Cx Nom (U) 50,000 colonies/ml mixed bacterial skin contaminants 2 Days PERFORMED BY: [place] [address] PATHOLOGIST HIGHER EDUCATION ADMINISTRATOR ZAC RAYO M.D. Normal [facility] Comment on above: Performed By: #### C UU #### [address] Urine cultureOrdered By: Jany Dahl on 05-08-2024 Bacteria identified Cx Nom (U) Urine culture [facility] XR THORACOLUMBAR 2+ VIEWSon 03-07-2024 XR THORACOLUMBAR 2+ VIEWS EXAMINATION: XR THORACOLUMBAR 2+ VIEWS 03/07/2024 2:10 pm HISTORY: ORDERING SYSTEM PROVIDED HISTORY: Evaluate cause of back pain. concern spinal cord stimulator malfunction., TECHNOLOGIST PROVIDED HISTORY: Illness/Other Reason for exam: Evaluate cause of back pain. concern spinal cord stimulator malfunction Cancer History: u Surgery, RadiationHistory: u- spinal cord stimulator placed in 2022 Encounter Type: Subsequent/Follow-up Additional signs and symptoms: . ORDERING SYSTEM PROVIDED DIAGNOSIS CODES: Z96.89 Status post insertion of spinal cord stimulator COMPARISON: August 24, 2022. Scoliosis series May 31, 2022. FINDINGS: A total of 6 views of the thoracolumbar spine are obtained. Dorsal column spinal stimulator leads are at the level of T7. Pulse generator overlies the right iliac crest. No obvious lead discontinuity. Mild levoscoliosis of the lumbar spine. No acute compression fracture is identified. Similar spinal degenerative changes including a stable 5-6 mm grade 1 degenerative retrolisthesis L2 on L3 with moderate degenerative disc changes at this level. IMPRESSION: 1. Dorsal column spinal stimulator leads in place at the level of T7 without evidence of lead discontinuity. 2. No acute osseous abnormality of the thoracolumbar spine is identified. [employer] Workstation ID: [id number] Dictated by: IVANNA CAMARILLO on SunMar 10, 2024 10:33:50 AM EST Transcribed by: DELIO RODAS on SunMar 10, 2024 11:16:22 AM EST Finalized by: IVANNA CAMARILLO on SunMar 10, 2024 3:29:17 PM EST Normal [facility] Comment on above: Order Comment: Dianne dyson 2 view, AP and lateral, include whole lumbar and thoracic spine and the spinal cord stimulator Batter in flank and leads. Injury/Trauma or Illness?:Illness/Other How long have you had these symptoms (acute/chronic)?:Chronic Reason for exam?:evalaute cause of back pain. concern spinal cord stimulator malfunction History of cancer?:u Surgeries, chemotherapy, or radiation?:u- spinal cord stimulator placed in 2022 Type of Exam?:Subsequent/Follow-up Additional signs and symptoms?:. ECHOCARDIOGRAM COMPLETEon ECHOCARDIOGRAM COMPLETE Patient Info Name: VERITO BRENANN Age: 58 years : 1965 Gender: Female Ht: 178 cm Wt: 108 kg BSA: 2.35 m2 HR: 75 bpm BP: 123 / 73 mmHg Heart Rhythm: Left Bundle Branch Block, Sinus Rhythm Technical Quality: Fair Exam Date: 07/17/2023 12:41 PM Patient Status: Outpatient Hearing Stenographer: Whitley Madison, CE, RVT Exam Type: ECHOCARDIOGRAM COMPLETE Study Info Indications R06.00 - Dyspnea, unspecified Referring Physician: VIJAY ACUNA ([id number]); [id number] BMI: 34.15 kg/m2 Summary 1. Left ventricular systolic function is normal with an ejection fraction by Biplane Method of Discs of 56 %. 2. Abnormal septal motion consistent with a left bundle branch block. 3. Right ventricular size and systolic function are normal. 4. No significant valvular disease identified. History/Risk Factors Hypertension: Yes Obesity: Yes Congestive Heart Failure (CHF): Hx CHF Tobacco Use: Current - Every Day If Any Current, Tobacco Type: Cigarettes If Current - Every Day AND Cigarettes, Amount: Light Tobacco Use (<10/day) Family History: Coronary Artery Disease History/Risk Factors dyspnea, abnormal EKG. Prior Interventions Pacemaker: No PCI: No CABG: No Procedure(s): Complete two-dimensional, color flow and Doppler transthoracic echocardiogram is performed. Left Ventricle Left ventricular chamber dimension is normal. Left ventricular systolic function is normal with an ejection fraction by Biplane Method of Discs of 56 %. Left ventricular segmental wall motion is normal. The left ventricular diastolic function is indeterminate. Abnormal septal motion consistent with a left bundle branch block. Right Ventricle Right ventricular size and systolic function are normal. Left Atria Left atrial chamber is normal with a left atrial volume index of 29 ml/m2 by BP MOD. Right Atria Right atrial chamber dimension is normal. Aortic Valve The aortic valve is trileaflet. There is no aortic valve sclerosis. There is no aortic valve stenosis. There is no aortic valve regurgitation. Pulmonic Valve The pulmonic valve is normal. There is no pulmonic valve stenosis. There is no pulmonic regurgitation. Mitral Valve The mitral valve has thickened leaflets and calcified annulus. There is no mitral valve stenosis. There is no mitral valve regurgitation. Tricuspid Valve The tricuspid valve leaflets are normal. There is no significant tricuspid valve stenosis. There is trace tricuspid valve regurgitation. There is no pulmonary hypertension, estimated right ventricle systolic pressure is 24 mmHg. Pericardium/Pleural There is no pericardial effusion. Inferior Vena Cava Normal inferior vena cava with >50% collapse upon inspiration consistent with normal right atrial pressure. Aorta The aortic measurements are indexed to age and body surface area. The aortic root is normal measuring 3.4 cm with an index of 1.4 cm/m2. The proximal ascending aorta is normal measuring 3.0 cm with an index of 1.3 cm/m2. Left Ventricular Outflow Tract ---- Name Value Normal ---- LVOT 2D ---- LVOT Diameter 2.0 cm LVOT Doppler ---- LVOT Peak Velocity 1.0 m/s LVOT Mean Gradient 2 mmHg LVOT VTI 24 cm LVOT VTI/AV VTI Ratio 0.9 LVOT Stroke Volume 76 ml LVOT Stroke Index 32.46 ml/m2 Pulmonic Valve ---- Name Value Normal ---- RVOT Doppler ---- RVOT Peak Velocity 80 cm/s RVOT Mean Gradient 1 mmHg RVOT VTI 18 cm PV Doppler ---- PV Peak Velocity 1.19 m/s PV Mean Gradient 2 mmHg PV VTI 23 cm Mitral Valve ---- Name Value Normal ---- MV Doppler ---- MV Peak Velocity 0.95 m/s MV Mean Gradient 2 mmHg MV VTI 19 cm MV Decel Coleman 486 cm/s2 MV PHT 82 ms MV Area (PHT) 2.7 cm2 4.0-5.0 MV Area (Cont Eq VTI) 4.0 cm2 MV Area Index (Cont Eq VTI) 1.72 cm2/m2 MV DVI 0.78 MV Diastolic Function ---- MV E Peak Velocity 0.91 m/s MV A Peak Velocity 0.90 m/s MV E/A 1.0 MV Decel Time 284 ms MV Annular TDI ---- MV Septal e' Velocity 6.1 c (more content not included)... Normal [facility] Ambulatory XR shoulder RT min 2V*on XR shoulder RT min 2V* [facility] [address] [place] [address] XRay Report Signed Patient: Verito Brennan MR#: [id number] : 1965 Acct:[id number] Age/Sex: 58 / F ADM Date: 07/03/23 [place] [facility] [place]: Type: [facility] Attending Dr: Tuan Gonzalez DO Copies to: Tuan Gonzalez DO Ordering Provider: Tuan Gonzalez DO Date of Service: 07/03/23 XR/XR shoulder RT min 2V*: M25.511 - Pain in right shoulder RIGHT SHOULDER - - 4 views CLINICAL HISTORY: Right shoulder pain for one year. COMPARISON: None FINDINGS: Mild degenerative changes of the AC and glenohumeral joints without acute bony process. XR/XR shoulder RT min 2V* IMPRESSION: MILD DEGENERATIVE CHANGES OF THE RIGHT SHOULDER WITHOUT ACUTE BONY PROCESS. Impression dictated by: Chay Ash Jr., DBanOBan07/03/2023 3:13 PM Dictation Location: [place] [address] Transcribed By: [facility] 07/03/23 1513 Dictated By: Chay Ash Jr, DO 07/03/23 1506 Signed By: 07/03/23 1513 Normal [facility] Blood type and Indirect anti body screen panel (Bld)on 08-24-2022 ABO and Rh group Nom (Bld) Blood group A Rh(D) negative [facility] Blood group antibody screen Ql Negative [facility] Specimen Expires 08/27/2022 23:59 EST [facility] XR OR T-Spine 1 Viewon 08-24 Please see operative report for details. Workstation ID: [id number] [facility] EXAMINATION: XR OR T-SPINE 1 VIEW HISTORY: ORDERING SYSTEM PROVIDED HISTORY: spinal cord stimulator, TECHNOLOGIST PROVIDED HISTORY: Illness/Other Reason for exam: spinal cord stimulator placement Encounter Type: Initial Additional signs and symptoms: . Fluoro dose in mGy: 13.92 ORDERING SYSTEM PROVIDED DIAGNOSIS CODES: COMPARISON: None. TECHNIQUE: Fluoro Dose Ka,r mGy: Fluoro dose in Ka,r mGy: 13.92 Intraoperative fluoroscopic assistance provided. FINDINGS: The 2 images show surgical hardware/retractor overlying the lower thoracic spine. Spinal stimulator lead noted. RIS To, Alonso Hernandez MD - 08/24/2022 EXAMINATION: XR OR T-SPINE 1 VIEW HISTORY: ORDERING SYSTEM PROVIDED HISTORY: spinal cord stimulator, TECHNOLOGIST PROVIDED HISTORY: Illness/Other Reason for exam: spinal cord stimulator placement Encounter Type: Initial Additional signs and symptoms: . Fluoro dose in mGy: 13.92 ORDERING SYSTEM PROVIDED DIAGNOSIS CODES: COMPARISON: None. TECHNIQUE: Fluoro Dose Ka,r mGy: Fluoro dose in Ka,r mGy: 13.92 Intraoperative fluoroscopic assistance provided. FINDINGS: The 2 images show surgical hardware/retractor overlying the lower thoracic spine. Spinal stimulator lead noted. IMPRESSION: Please see operative report for details. Workstation ID: [id number] [facility] Radiology Study observation (narrative) [facility] XR OR T-Spine 1 ViewOrdered By: Alonso Agustin on 08-24-2022 [facility] Work Phone: MRI LSPINE WO CONon 05-11-19 MRI LSPINE WO CON EXAMINATION: MRI LSPINE WO CON HISTORY: Postprocedural state finding ; 01/13/2022 lumbar discectomy; chronic lumbar pain COMPARISON: MRI L-spine 03/18/2021 TECHNIQUE: A variety of imaging planes and parameters were utilized for visualization of suspected pathology. FINDINGS: For the purposes of numbering, sagittal T2 image # 8 extends from the T11 vertebral body superiorly to the S3 level inferiorly. PARASPINAL AREA: Normal with no visible mass. BONES: 4 mm retrolisthesis of L2 on 3. CORD/CAUDA EQUINA: Normal caliber, contour, and signal intensity. DISC LEVELS: 12-L1: No significant disc/facet abnormality, spinal stenosis, or foraminal stenosis. L1-L2: No significant disc/facet abnormality, spinal stenosis, or foraminal stenosis. L2-L3: 4 mm retrolisthesis of L2 on 3. Mild central canal and moderate right, mild left foramen narrowing. L3-L4: Mild foramen narrowing bilaterally secondary to mild diffuse disc bulging and mild degenerative facet arthropathy. No significant central canal narrowing. L4-L5: No significant disc/facet abnormality, spinal stenosis, or foraminal stenosis. L5-S1: No significant disc/facet abnormality, spinal stenosis, or foraminal stenosis. IMPRESSION: 1. Grossly stable grade 1 retrolisthesis of L2 on 3 with mild central canal and moderate right foramen narrowing. 2. L3-L4 mild disc bulging and mild foramen narrowing bilaterally; improved. Electronically authenticated by: MAGGI RODRIGUEZ Date: 2022-05-10 08:30 Normal [facility] [facility] XR Lumbar Spine Standard wit h Flex/Ext 4+ View[facility] 04-22-2022 No significant interval change. Degenerative changes of the lumbar spine as described. No lumbar instability is detected on flexion or extension. Workstation ID: [id number] [facility] EXAMINATION: XR LUMBAR SPINE STANDARD WITH FLEX/EXT 4+ VIEWS HISTORY: Lower back pain COMPARISON: Lumbar spine study from 03/07/2021 TECHNIQUE: Five views of the lumbar spine including flexion and extension views FINDINGS: There are five lumbar vertebral segments. There is retrolisthesis of L2 on L3. This finding is stable and is not change with flexion or extension, and is unchanged in interval since the prior study. There are degenerative facet joint changes and anterior osteophytes. No acute fracture, subluxation or osseous lesions detected. The sacroiliac joints appear unremarkable. [facility] Yash Marques MD - 04/22/2022 EXAMINATION: XR LUMBAR SPINE STANDARD WITH FLEX/EXT 4+ VIEWS HISTORY: Lower back pain COMPARISON: Lumbar spine study from 03/07/2021 TECHNIQUE: Five views of the lumbar spine including flexion and extension views FINDINGS: There are five lumbar vertebral segments. There is retrolisthesis of L2 on L3. This finding is stable and is not change with flexion or extension, and is unchanged in interval since the prior study. There are degenerative facet joint changes and anterior osteophytes. No acute fracture, subluxation or osseous lesions detected. The sacroiliac joints appear unremarkable. IMPRESSION: No significant interval change. Degenerative changes of the lumbar spine as described. No lumbar instability is detected on flexion or extension. Workstation ID: [id number] [facility] XR Lumbar Spine Standard wit h Flex/Ext 4+ ViewsOrdered By: Yash Marques on 04-22-2022 [facility] Work Phone: XR Lumbar Spine Standard wit h Flex/Ext 4+ Viewson 04-20-2022 Radiology Study observation (narrative) [facility] MRI ANKLE LT WO CONon 2022 MRI ANKLE LT WO CON EXAM: MRI ANKLE LT W O CON REASON FOR EXAM: Plantar fascial fibromatosis. TECHNIQUE: Multiplanar, multisequence imaging of the left ankle was performed without contrast COMPARISON: Plain radiograph 03/22/2022. FINDINGS: There is fusiform thickening and intermediate signal involving the Achilles tendon consistent with tendinosis. No tear identified. There is fusiform thickening and intermediate signal involving the plantar fascia consistent with plantar fasciopathy. There is low to intermediate grade interstitial tearing of the medial cord. No evidence of complete rupture. Mild reactive edema in the inferior calcaneus. No masslike thickening of the plantar fascia identified to suggest fibromatosis. Laterally, the peroneal tendons demonstrate normal thickness and signal without tendinosis or tear. The superficial peroneal retinaculum is intact. Mild thickening and intermediate signal involving the anterior talofibular and calcaneofibular ligaments is prior lateral ligamentous injury. No evidence of acute lateral ligamentous injury. Medially, the medial flexor tendons demonstrate normal thickness and signal without tendinosis or tear. The deep deltoid ligament is intact. The spring ligament is intact. Anteriorly, the anterior extensor tendons demonstrate normal thickness and signal without tendinosis or tear. The bone marrow signal is without fracture or osteonecrosis. The talar dome is congruent. The subtalar joints intact. The sinus tarsi is nonedematous. The midfoot is congruent with mild osteoarthritis including joint space narrowing marginal osteophytes. The plantar musculature demonstrates normal bulk and signal. Remaining soft tissues are unremarkable. IMPRESSION: 1. Acute plantar fasciitis with low to intermediate grade interstitial partial tearing of the medial cord. No masslike thickening identified to suggest fibromatosis. 2. 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 3. Sequela of prior lateral ligamentous injury. 4. Mild midfoot osteoarthritis Electronically authenticated by: SAMMIE ARTHUR Date: 2022-04-06 08:47 Normal [facility] Blood type and Indirect anti body screen panel (Bld)on 01-13-2022 ABO and Rh group Nom (Bld) Blood group A Rh(D) negative [facility] Blood group antibody screen Ql Negative [facility] Specimen Expires 01/16/2022 23:59 EST [facility] XR OR L-Spine 2-3 Viewson As above. 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 FINDINGS: Surgical instrumentation and surgical needles overlying the right lumbar spine at the level of L2 and L3. Stable lumbar spine levoscoliosis and grade 1 anterolisthesis of L2 on L3. Similar mild to moderate multilevel degenerative disc disease. Please refer to separate operative report for details. 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 FINDINGS: Surgical instrumentation and surgical needles overlying the right lumbar spine at the level of L2 and L3. Stable lumbar spine levoscoliosis and grade 1 anterolisthesis of L2 on L3. Similar mild to moderate multilevel degenerative disc disease. Please refer to separate operative report for details. IMPRESSION: As above. Workstation ID: [id number] [facility] Radiology Study observation (narrative) [facility] XR OR L-Spine 2-3 ViewsOrder ed By: Nehal Beverly on 01-13-2022 [facility] Work Phone: CBC AUTO DIFFon 01-03-2022 BASO # 0.0 103/ul Normal 0.0-0.1 [facility] Comment on above: Performed By: #### C BC #### [facility] Laboratory [address] [place] [address] Dr. Phoebe Ny Basophils/100 WBC (Bld) 0.2 % Normal 0.2-2.0 [facility] Comment on above: Performed By: #### C BC #### [facility] Laboratory [address] [address] [address] Phoebe Ny EO # 0.2 103/ul Normal 0.0-0.7 [facility] Comment on above: Performed By: #### C BC #### [facility] [address] [address] [address] Phoebe Ny Eosinophils/100 WBC (Bld) 2.7 % Normal 0.9-7.0 [facility] Comment on above: Performed By: #### C BC #### [facility] Laboratory [address] [address] [address] Phoebe Ny Erythrocyte distribution width (RBC) [Ratio] 13.1 % Normal 11.0-15.0 [facility] Comment on above: Performed By: #### C BC #### [facility] Laboratory [address] [place] [address] Dr. Phoebe Ny Hematocrit (Bld) [Volume fraction] 40.7 % Normal 36.0-48.0 [facility] Comment on above: Performed By: #### C BC #### [facility] [address] [place] [address] Dr. Phoebe Ny Hemoglobin (Bld) [Mass/Vol] 13.6 g/dL Normal 12.0-16.0 [facility] Comment on above: Performed By: #### C BC #### [facility] [address] [place] [address] Dr. Phoebe Ny IG # 0.03 10e3/ul Normal 0.00-0.03 [facility] Comment on above: Performed By: #### C BC #### [facility] [address] [place] [address] Dr. Phoebe Ny IG % 0.4 % Normal 0.0-0.5 [facility] Comment on above: Performed By: #### C BC #### [facility] [address] [place] [address] Dr. Phoebe Ny LYMPH # 3.0 103/ul Normal 1.2-3.8 [facility] Comment on above: Performed By: #### C BC #### [facility] [address] [place] [address] Dr. Phoebe Ny Lymphocytes/100 WBC (Bld) 35.1 % Normal 20.5-60.0 [facility] Comment on above: Performed By: #### C BC #### [facility] [address] [place] [address] Dr. Phoebe Ny MANUAL DIFF REQ NO Normal [facility] Comment on above: Performed By: #### C BC #### [facility] [address] [place] [address] Dr. Phoebe Ny MCH (RBC) [Entitic mass] 31.1 pg Normal 26.7-34.0 [facility] Comment on above: Performed By: #### C BC #### [facility] [address] [place] [address] Dr. Phoebe Ny MCHC (RBC) [Mass/Vol] 33.4 g/dL Normal 29.9-35.2 [facility] Comment on above: Performed By: #### C BC #### [facility] [address] [place] [address] Dr. Phoebe Ny MCV (RBC) [Entitic vol] 92.9 fL Normal 81.0-99.0 [facility] Comment on above: Performed By: #### C BC #### [facility] Laboratory [address] [address] [address] Phoebe Ny MONO # 0.7 103/ul Normal 0.3-0.8 [facility] Comment on above: Performed By: #### C BC #### [facility] [address] [address] [address] Phoebe Ny Monocytes/100 WBC (Bld) 7.6 % Normal 1.7-12.0 [facility] Comment on above: Performed By: #### C BC #### [facility] Laboratory [address] [address] [address] Phoebe Ny NEUT # 4.6 103/ul Normal 1.4-6.5 [facility] Comment on above: Performed By: #### C BC #### [facility] Laboratory [address] [place] [address] Dr. Phoebe Ny Neutrophils/100 WBC (Bld) 54.0 % Normal 43.0-75.0 [facility] Comment on above: Performed By: #### C BC #### [facility] [address] [place] [address] Dr. Phoebe Ny Platelet mean volume (Bld) [Entitic vol] 11.2 fL Normal 9.5-13.5 [facility] Comment on above: Performed By: #### C BC #### [facility] [address] [place] [address] Dr. Phoebe Ny PLT 232 103/ul Normal 150-450 [facility] Comment on above: Performed By: #### C BC #### [facility] [address] [place] [address] Dr. Phoebe Ny RBC 4.38 106/ul Normal 4.20-5.40 [facility] Comment on above: Performed By: #### C BC #### [facility] Laboratory [address] [place] [address] Dr. Phoebe Ny WBC 8.6 103/ul Normal 4.0-11.0 [facility] Comment on above: Performed By: #### C BC #### [facility] Laboratory [address] [address] [address] Phoebe Ny CTA CHEST WO W CONon 022 CTA CHEST WO W CON EXAM: CTA CHEST WO W CON 01/03/2022 6:01 AM EDT OH001 CLINICAL STATEMENT: CHEST PAIN, UNSPECIFIED COMPARISON: No prior studies are available at the time of dictation. TECHNIQUE: Helically acquired images were obtained of the chest following 100 cc of Omnipaque 350 IV contrast as per pulmonary angiogram protocol. Coronal and sagittal MIP (maximum intensity projection) images were performed. Dose reduction techniques were achieved by using automated exposure control and/or adjustment of mA and/or kV according to patient size and/or use of iterative reconstruction technique. FINDINGS: There is no evidence of pulmonary embolism, aortic aneurysm, or aortic dissection. The aortic arch branch vessels are grossly patent. The heart is not enlarged. There is no pericardial effusion or thickening. There is no enlarged mediastinal or hilar adenopathy. No acute airspace disease. Bilateral basilar scarring. There are no pleural effusions. There are no enlarged (>3 mm) pulmonary nodules. There is no pneumothorax. There are no endobronchial lesions seen. The thyroid is homogeneous. No acute fracture. There are no destructive bone lesions identified. Screening images of the upper abdomen are grossly unremarkable. IMPRESSION: No evidence for pulmonary embolism, aortic aneurysm, or aortic dissection. FOLLOW-UP: Follow-up as clinically indicated. Electronically authenticated by: JAMES TESFAYE Date: 2022-01-03 06:48 Normal [facility] PROF 14(COMP METB)on 022 Albumin [Mass/Vol] 3.9 g/dL Normal 3.4-5.0 [facility] Comment on above: Performed By: #### C MP #### [facility] Laboratory [address] [place], [place] [address] Dr. Phoebe Ny Albumin/Globulin [Mass ratio] 1.0 {ratio} Normal [facility] Comment on above: Performed By: #### C MP #### [facility] [address] [place], [place] [address] Dr. Phoebe Ny ALP [Catalytic activity/Vol] 102 U/L Normal 46-116 [facility] Comment on above: Performed By: #### C MP #### [facility] [address] [address] [address] Phoebe Ny ALT [Catalytic activity/Vol] 24 U/L Normal 14-59 [facility] Comment on above: Performed By: #### C MP #### [facility] [address] [place] [address] Dr. Phoebe Ny Anion gap [Moles/Vol] 12.2 mmol/L Normal [facility] Comment on above: Performed By: #### C MP #### [facility] [address] [address] [address] Phoebe Ny AST [Catalytic activity/Vol] 10 U/L Critically low 15-37 [facility] Comment on above: Performed By: #### C MP #### [facility] [address] [place] [address] Dr. Phoebe Ny Bilirubin [Mass/Vol] 0.3 mg/dL Normal 0.2-1.0 [facility] Comment on above: Performed By: #### C MP #### [facility] Laboratory [address] [place] [address] Dr. Phoebe Ny Calcium [Mass/Vol] 9.0 mg/dL Normal 8.5-10.1 [facility] Comment on above: Performed By: #### C MP #### [facility] [address] [place] [address] Dr. Phoebe Ny Chloride [Moles/Vol] 104 mmol/L Normal 98-107 [facility] Comment on above: Performed By: #### C MP #### [facility] Laboratory [address] [place] [address] Dr. Phoebe Ny CO2 [Moles/Vol] 25.0 mmol/L Normal 21.0-32.0 [facility] Comment on above: Performed By: #### C MP #### [facility] [address] [place] [address] Dr. Phoebe Ny Creatinine [Mass/Vol] 1.06 mg/dL Critically high 0.55-1.02 [facility] Comment on above: Performed By: #### C MP #### [facility] [address] [place] [address] Dr. Phoebe Ny EGFR-AF CITIZEN [place] >60 Normal >=60 [facility] Comment on above: Performed By: #### C MP #### [facility] [address] [address] [address] Phoebe Ny EGFR-NON AF CITIZEN OF [place] 53 mL/min/1.73m2 Critically low >=60 [facility] Comment on above: Performed By: #### C MP #### [facility] [address] [address] [address] Phoebe Ny Globulin (S) [Mass/Vol] 3.9 g/dL Normal [facility] Comment on above: Performed By: #### C MP #### [facility] [address] [address] [address] Phoebe Ny Glucose [Mass/Vol] 114 mg/dL Critically high 74-106 [facility] Comment on above: Performed By: #### C MP #### [facility] [address] [address] [address] Phoebe Ny Potassium [Moles/Vol] 4.2 mmol/L Normal 3.5-5.1 [facility] Comment on above: Performed By: #### C MP #### [facility] [address] [address] [address] Phoebe Ny Protein [Mass/Vol] 7.8 g/dL Normal 6.4-8.2 [facility] Comment on above: Performed By: #### C MP #### [facility] [address] [address] [address] Phoebe Ny Sodium [Moles/Vol] 137 mmol/L Normal 136-145 [facility] Comment on above: Performed By: #### C MP #### [facility] [address] [address] [address] Phoebe Ny Urea nitrogen [Mass/Vol] 23.0 mg/dL Critically high 7.0-18.0 [facility] Comment on above: Performed By: #### C MP #### [facility] [address] [address] [address] Phoebe Ny Urea nitrogen/Creatinine [Mass ratio] 21.7 mg/mg Normal [facility] Comment on above: Performed By: #### C MP #### [facility] Laboratory [address] [place] [address] Dr. Phoebe Ny TROPONIN, HIGH SENSITIVITYon 01-03-2022 HSTROP 5.5 pg/mL Normal 4.0-51.3 [facility] Comment on above: Result Comment: CUT- OFF POINTS HAVE BEEN ESTABLISHED BASED ON THE FOURTH UNIVERSAL DEFINITIONS OF MYOCARDIAL INFARCTION. THE UPPER REFERENCE LIMIT (URL) OF TROPONIN, DEFINED THE 99TH PERCENTILE OF cTnI DISTRIBUTION IN A REFERENCE POPULATION, HAS BEEN CONFIRMED THE DECISION THRESHOLD FOR WI DIAGNOSIS. Performed By: #### H STROPN #### [facility] Laboratory [address] [place] [address] Dr. Phoebe Ny CARDIAC KATIE ADMITon 022 CK [Catalytic activity/Vol] 116 U/L Normal 26-192 [facility] Comment on above: Performed By: #### C YUSRA, BMP #### [facility] Laboratory [address] [place] [address] Dr. Phoebe Ny CK.MB [Mass/Vol] 1.67 ng/mL Normal <=3.60 [facility] Comment on above: Performed By: #### C ZAINABM, BMP #### [facility] Laboratory [address] [place] [address] Dr. Phoebe Ny HSTROP 7.9 pg/mL Normal 4.0-51.3 [facility] Comment on above: Result Comment: CUT- OFF POINTS HAVE BEEN ESTABLISHED BASED ON THE FOURTH UNIVERSAL DEFINITIONS OF MYOCARDIAL INFARCTION. THE UPPER REFERENCE LIMIT (URL) OF TROPONIN, DEFINED THE 99TH PERCENTILE OF cTnI DISTRIBUTION IN A REFERENCE POPULATION, HAS BEEN CONFIRMED THE DECISION THRESHOLD FOR WI DIAGNOSIS. Performed By: #### C MADM, BMP #### [facility] Laboratory [address] [place] [address] Dr. Phoebe Ny HERNANDO 43 ng/mL Normal 9-82 [facility] Comment on above: Performed By: #### C MADM, BMP #### [facility] Laboratory [address] [place] [address] Dr. Phoebe Ny CBC AUTO DIFFon 08-04-2021 BASO # 0.0 103/ul Normal 0.0-0.1 [facility] Comment on above: Performed By: #### C BC #### [facility] Laboratory [address] [place] [address] Dr. Phoebe Ny Basophils/100 WBC (Bld) 0.2 % Normal 0.2-2.0 [facility] Comment on above: Performed By: #### C BC #### [facility] Laboratory [address] [place] [address] Dr. Phoebe Ny EO # 0.0 103/ul Normal 0.0-0.7 [facility] Comment on above: Performed By: #### C BC #### [facility] Laboratory [address] [place] [address] Dr. Phoebe Ny Eosinophils/100 WBC (Bld) 0.2 % Critically low 0.9-7.0 [facility] Comment on above: Performed By: #### C BC #### [facility] [address] [place] [address] Dr. Phoebe Ny Erythrocyte distribution width (RBC) [Ratio] 13.2 % Normal 11.0-15.0 [facility] Comment on above: Performed By: #### C BC #### [facility] [address] [place] [address] Dr. Phoebe Ny Hematocrit (Bld) [Volume fraction] 40.7 % Normal 36.0-48.0 [facility] Comment on above: Performed By: #### C BC #### [facility] [address] [place] [address] Dr. Phoebe Ny Hemoglobin (Bld) [Mass/Vol] 13.6 g/dL Normal 12.0-16.0 [facility] Comment on above: Performed By: #### C BC #### [facility] Laboratory [address] [place] [address] Dr. Phoebe Ny IG # 0.03 10e3/ul Normal 0.00-0.03 [facility] Comment on above: Performed By: #### C BC #### [facility] Laboratory [address] [place] [address] Dr. Phoebe Ny IG % 0.3 % Normal 0.0-0.5 [facility] Comment on above: Performed By: #### C BC #### [facility] Laboratory [address] [place] [address] Dr. Phoebe Ny LYMPH # 3.8 103/ul Normal 1.2-3.8 [facility] Comment on above: Performed By: #### C BC #### [facility] Laboratory [address] [place] [address] Dr. Phoebe Ny Lymphocytes/100 WBC (Bld) 41.2 % Normal 20.5-60.0 [facility] Comment on above: Performed By: #### C BC #### [facility] [address] [place] [address] Dr. Phoebe Ny MANUAL DIFF REQ NO Normal [facility] Comment on above: Performed By: #### C BC #### [facility] Laboratory [address] [place] [address] Dr. Phoebe Ny MCH (RBC) [Entitic mass] 30.8 pg Normal 26.7-34.0 [facility] Comment on above: Performed By: #### C BC #### [facility] Laboratory [address] [place] [address] Dr. Phoebe Ny MCHC (RBC) [Mass/Vol] 33.4 g/dL Normal 29.9-35.2 [facility] Comment on above: Performed By: #### C BC #### [facility] [address] [place] [address] Dr. Phoebe Ny MCV (RBC) [Entitic vol] 92.1 fL Normal 81.0-99.0 [facility] Comment on above: Performed By: #### C BC #### [facility] [address] [place] [address] Dr. Phoebe Ny MONO # 0.6 103/ul Normal 0.3-0.8 [facility] Comment on above: Performed By: #### C BC #### [facility] [address] [place] [address] Dr. Phoebe Ny Monocytes/100 WBC (Bld) 6.9 % Normal 1.7-12.0 [facility] Comment on above: Performed By: #### C BC #### [facility] Laboratory [address] [address] [address] Phoebe Ny NEUT # 4.7 103/ul Normal 1.4-6.5 [facility] Comment on above: Performed By: #### C BC #### [facility] [address] [place] [address] [address] Phoebe Ny Neutrophils/100 WBC (Bld) 51.2 % Normal 43.0-75.0 [facility] Comment on above: Performed By: #### C BC #### [facility] Laboratory [address] [address] [address] Phoebe Ny Platelet mean volume (Bld) [Entitic vol] 11.9 fL Normal 9.5-13.5 [facility] Comment on above: Performed By: #### C BC #### [facility] Laboratory [address] [place] [address] Dr. Phoebe Ny PLT 199 103/ul Normal 150-450 [facility] Comment on above: Performed By: #### C BC #### [facility] Laboratory [address] [address] [address] Phoebe Ny RBC 4.42 106/ul Normal 4.20-5.40 [facility] Comment on above: Performed By: #### C BC #### [facility] Laboratory [address] [address] [address] Phoebe Ny WBC 9.2 103/ul Normal 4.0-11.0 [facility] Comment on above: Performed By: #### C BC #### [facility] Laboratory [address] [address] [address] Phoebe Ny PROF CHEM 8 (BAS METB)on Anion gap [Moles/Vol] 12.5 mmol/L Normal [facility] Comment on above: Performed By: #### C MADM, BMP ####[facility] [id number] [place] [address]Dr. Phoebe Ny Calcium [Mass/Vol] 9.6 mg/dL Normal 8.5-10.1 [facility] Comment on above: Performed By: #### C YUSRA, BMP ####[facility] [id number] [place] [id number][address] Phoebe Ny Chloride [Moles/Vol] 103 mmol/L Normal 98-107 [facility] Comment on above: Performed By: #### C YUSRA, BMP ####[facility] [id number] [place] [address]Dr. Phoebe Ny CO2 [Moles/Vol] 25.9 mmol/L Normal 21.0-32.0 [facility] Comment on above: Performed By: #### C YUSRA, BMP ####[facility] [id number] [place] [address]Dr. Phoebe Ny Creatinine [Mass/Vol] 0.83 mg/dL Normal 0.55-1.02 [facility] Comment on above: Performed By: #### C YUSRA, BMP ####[facility] [id number] [place], [place] [address]Dr. Phoebe Ny EGFR-AF CITIZEN OF [place] >60 Normal >=60 [facility] Comment on above: Performed By: #### C YUSRA, BMP ####[facility] [id number] [place], [place] [address]Dr. Phoebe Ny EGFR-NON AF CITIZEN OF [place] >60 Normal >=60 [facility] Comment on above: Performed By: #### C YUSRA, BMP ####[facility] [id number] [place] [address]Dr. Phoebe Ny Glucose [Mass/Vol] 127 mg/dL Critically high 74-106 [facility] Comment on above: Performed By: #### C ZAINABM, BMP ####[facility] [id number] [place] [address]Dr. Phoebe Ny Potassium [Moles/Vol] 3.4 mmol/L Critically low 3.5-5.1 [facility] Comment on above: Performed By: #### C MADM, BMP ####[facility] [id number] [place] [address]Dr[address] Phoebe Ny Sodium [Moles/Vol] 138 mmol/L Normal 136-145 [facility] Comment on above: Performed By: #### C YUSRA, MODESTO ####[facility] [id number] [place], [place] [address]Et. Phoebe Ny Urea nitrogen [Mass/Vol] 10.0 mg/dL Normal 7.0-18.0 [facility] Comment on above: Performed By: #### Rylie MENG, MODESTO ####[facility] [id number] [place], [place] [address]Sf. Phoebe Ny Urea nitrogen/Creatinine [Mass ratio] 12.0 mg/mg Normal [facility] Comment on above: Performed By: #### C YUSRA, MODESTO ####[facility] [id number] [place], [place] [address]En. Phoebe Ny XR CHEST 1 Von 08-04-2021 XR CHEST 1 V CXR HISTORY: Chest pain COMPARISON: None. TECHNIQUE: 1 view chest submitted for review. FINDINGS: The lungs are hyper expanded without evidence of acute infiltrate or effusion. The cardiac silhouette measures within normal. Pulmonary vascularity is unremarkable. Osseous structures are within normal limits for age. IMPRESSION: No plain film evidence for acute cardiopulmonary disease. Electronically authenticated by: NANCY MARTEL Date: 2021-08-03 22:30 Normal [facility] Basic metabolic 2000 panelon 08-03-2021 Anion gap [Moles/Vol] 7 mmol/L Low 10 - 20 mmol/L [facility] Calcium [Mass/Vol] 9.6 mg/dL 8.4 - 10. 2 mg/dL [facility] Chloride [Moles/Vol] 108 mmol/L 98 - 108 mmol/L [facility] Creatinine [Mass/Vol] 0.74 mg/dL 0.40 - 1.10 mg/dL [facility] GFR/1.73 sq M.predicted CKD-EPI (S/P/Bld) [Vol rate/Area] 90 - PINF [facility] Glucose [Mass/Vol] 89 mg/dL 65 - 99 mg/dL [facility] HCO3 [Moles/Vol] 29 mmol/L 21 - 32 mmol/L [facility] Interpretation and review of laboratory results Abnormal [facility] Potassium [Moles/Vol] 4.2 mmol/L 3.5 - 5.1 mmol/L [facility] Sodium [Moles/Vol] 140 mmol/L 135 - 145 mmol/L [facility] Urea nitrogen [Mass/Vol] 8 mg/dL 8 - 25 mg/dL [facility] Urea nitrogen/Creatinine [Mass ratio] 10.8 mg/mg 10 - 20 [facility] The eGFR should be used for monitoring renal function only and not for medication dosing. [facility] Lipid 1996 panelon 2 Cholesterol [Mass/Vol] 191 mg/dL 100 - 199 mg/dL [facility] Comment on above: National Cholesterol Education Program Guidelines: Cholesterol Desirable: <200 mg/dL Borderline High: 200-239 mg/dL High: greater than or equal to 240 mg/dL Cholesterol in HDL [Mass/Vol] 56 mg/dL 40 - 59 mg/dL [facility] Comment on above: National Cholesterol Education Program Guidelines: HDL Cholesterol Low: <40 mg/dL Near Optimal: 40-59 mg/dL High: greater than or equal to 60 mg/dL Cholesterol in LDL [Mass/Vol] 122 mg/dL 10 - 130 mg/dL [facility] Comment on above: National Cholesterol Education Program Guidelines: LDL Cholesterol Optimal: <100 mg/dL Near Optimal/above Optimal: 100-129 mg/dL Borderline High: 130-159 mg/dL High: 160-189 mg/dL Very High: greater than or equal to 190 mg/dL Cholesterol non HDL [Mass/Vol] 135 mg/dL [facility] Comment on above: National Cholesterol Education Program Guidelines: NON HDL Cholesterol Desirable: <130 mg/dL Borderline High: 130-159 mg/dL High: 160-189 mg/dL Very High: > or = 190 mg/dL Cholesterol.total/C holesterol in HDL [Mass ratio] 3.4 {ratio} ratio [facility] Comment on above: Female Cholesterol/H DL Ratio: Average risk: 4.4 1/2 average risk: 3.3 2 x average risk: 7.1 Triglyceride [Mass/Vol] 66 mg/dL 30 - 150 mg/dL [facility] Comment on above: National Cholesterol Education Program Guidelines: Triglyceride Normal: <150 mg/dL Borderline High: 150-199 mg/dL High: 200-499 mg/dL Very High: greater than or equal to 500 mg/dL No Panel Informationon 08-03 [facility] Echocardiogram completeon Aortic valve area 2.29042 cm [facility] AV mean gradient 4 mmHg [facility] EF 37.7172 % [facility] Patient Info Name: VERITO BRENNAN Age: 56 years : 1965 Gender: Female Ht: 178 cm Wt: 100 kg BSA: 2.25 m2 HR: 100 bpm BP: 133 / 78 mmHg Heart Rhythm: Left Bundle Branch Block, Tachycardia, Sinus Rhythm Technical Quality: Fair Exam Date: 07/05/2021 1:52 PM Patient Status: Outpatient Hearing Stenographer: Whitley Madison, CE, RVT Exam Type: ECHOCARDIOGRAM COMPLETE Study Info Indications - Abnormal electrocardiogram [ECG] [EKG] Attending Physician: VIJAY ACUNA (ds/[id number]) Referring Physician: VIJAY ACUNA (ds/[id number]); [id number] BMI: 31.57 kg/m2 Summary 1. Mildly dilated LV chamber size. There is mild concentric left ventricular hypertrophy. There is moderately reduced LV systolic function with the entire inferoseptal, entire anteroseptal and apical septal gates being akinetic. The remaining gates are hypokinetic. LVEF by 3D echo of 35%. 2. The left ventricular diastolic function is grade I diastolic dysfunction. 3. Right ventricular chamber dimension is normal. Right ventricular systolic function is normal. 4. There is no hemodynamically significant valve disease. 5. There is borderline pulmonary hypertension, estimated right ventricle systolic pressure is 38 mmHg. History/Risk Factors Obesity: Yes Tobacco Use: Current - Every Day History/Risk Factors abnormal EKG, LBBB, preop for back surgery. Procedure(s): Complete two-dimensional, color flow and Doppler transthoracic echocardiogram is performed. Left Ventricle The left ventricular diastolic function is grade I diastolic dysfunction. Mildly dilated LV chamber size. There is mild concentric left ventricular hypertrophy. There is moderately reduced LV systolic function with the entire inferoseptal, entire anteroseptal and apical septal gates being akinetic. The remaining gates are hypokinetic. LVEF by 3D echo of 35%. Right Ventricle Right ventricular chamber dimension is normal. Right ventricular systolic function is normal. Left Atria Left atrial chamber is normal with a left atrial volume index of 25 ml/m2 by BP MOD. Right Atria Right atrial chamber dimension is normal. Aortic Valve The aortic valve is trileaflet. There is mild aortic valve sclerosis. There is no aortic valve stenosis with a peak velocity of 1.4 m/s, mean gradient of 4 mmHg, and aortic valve area of 2.5 cm2. There is no aortic valve regurgitation. Pulmonic Valve The pulmonic valve is not well visualized. There is no pulmonic valve stenosis. There is no pulmonic regurgitation. Mitral Valve The mitral valve has normal leaflets. There is no mitral valve stenosis. There is trace mitral valve regurgitation. Tricuspid Valve The tricuspid valve leaflets are normal. There is no significant tricuspid valve stenosis. There is trace tricuspid valve regurgitation. There is borderline pulmonary hypertension, estimated right ventricle systolic pressure is 38 mmHg. Pericardium/Pleural The pericardium appears normal. There is no pericardial effusion. Inferior Vena Cava Normal inferior vena cava with >50% collapse upon inspiration consistent with normal right atrial pressure. Aorta The aortic measurements are indexed to age and body surface area. The aortic root is normal measuring 3.2 cm with an index of 1.4 cm/m2. The proximal ascending aorta is normal measuring 3.4 cm with an index of 1.5 cm/m2. Wall Motion Scoring Wall Motion Scoring Index: 2.29 Left Ventricular Outflow Tract ---- Name Value Normal ---- LVOT 2D ---- LVOT Diameter 2.0 cm LVOT Doppler ---- LVOT Peak Velocity 1.1 m/s LVOT Mean Gradient 2 mmHg LVOT VTI 22 cm LVOT VTI/AV VTI Ratio 0.8 LVOT Stroke Volume 68 ml LVOT Stroke Index 30.30 ml/m2 Pulmonic Valve ---- Name Value Normal ---- PV 2D ---- RVOT Diameter (2D) 1.7 cm 1.7-2.7 RVOT Doppler ---- RVO (more content not included)... Vijay Brandt MD - 07/06/2021 Patient Info Name: VERITO BRENNAN Age: 56 years : 1965 Gender: Female Ht: 178 cm Wt: 100 kg BSA: 2.25 m2 HR: 100 bpm BP: 133 / 78 mmHg Heart Rhythm: Left Bundle Branch Block, Tachycardia, Sinus Rhythm Technical Quality: Fair Exam Date: 07/05/2021 1:52 PM Patient Status: Outpatient Hearing Stenographer: Whitley Madison, CE, RVT Exam Type: ECHOCARDIOGRAM COMPLETE Study Info Indications - Abnormal electrocardiogram [ECG] [EKG] Attending Physician: VIJAY ACUNA (ds/[id number]) Referring Physician: VIJAY ACUNA (ds/[id number]); [id number] BMI: 31.57 kg/m2 Summary 1. Mildly dilated LV chamber size. There is mild concentric left ventricular hypertrophy. There is moderately reduced LV systolic function with the entire inferoseptal, entire anteroseptal and apical septal gates being akinetic. The remaining gates are hypokinetic. LVEF by 3D echo of 35%. 2. The left ventricular diastolic function is grade I diastolic dysfunction. 3. Right ventricular chamber dimension is normal. Right ventricular systolic function is normal. 4. There is no hemodynamically significant valve disease. 5. There is borderline pulmonary hypertension, estimated right ventricle systolic pressure is 38 mmHg. History/Risk Factors Obesity: Yes Tobacco Use: Current - Every Day History/Risk Factors abnormal EKG, LBBB, preop for back surgery. Procedure(s): Complete two-dimensional, color flow and Doppler transthoracic echocardiogram is performed. Left Ventricle The left ventricular diastolic function is grade I diastolic dysfunction. Mildly dilated LV chamber size. There is mild concentric left ventricular hypertrophy. There is moderately reduced LV systolic function with the entire inferoseptal, entire anteroseptal and apical septal gates being akinetic. The remaining gates are hypokinetic. LVEF by 3D echo of 35%. Right Ventricle Right ventricular chamber dimension is normal. Right ventricular systolic function is normal. Left Atria Left atrial chamber is normal with a left atrial volume index of 25 ml/m2 by BP MOD. Right Atria Right atrial chamber dimension is normal. Aortic Valve The aortic valve is trileaflet. There is mild aortic valve sclerosis. There is no aortic valve stenosis with a peak velocity of 1.4 m/s, mean gradient of 4 mmHg, and aortic valve area of 2.5 cm2. There is no aortic valve regurgitation. Pulmonic Valve The pulmonic valve is not well visualized. There is no pulmonic valve stenosis. There is no pulmonic regurgitation. Mitral Valve The mitral valve has normal leaflets. There is no mitral valve stenosis. There is trace mitral valve regurgitation. Tricuspid Valve The tricuspid valve leaflets are normal. There is no significant tricuspid valve stenosis. There is trace tricuspid valve regurgitation. There is borderline pulmonary hypertension, estimated right ventricle systolic pressure is 38 mmHg. Pericardium/Pleural The pericardium appears normal. There is no pericardial effusion. Inferior Vena Cava Normal inferior vena cava with >50% collapse upon inspiration consistent with normal right atrial pressure. Aorta The aortic measurements are indexed to age and body surface area. The aortic root is normal measuring 3.2 cm with an index of 1.4 cm/m2. The proximal ascending aorta is normal measuring 3.4 cm with an index of 1.5 cm/m2. Wall Motion Scoring Wall Motion Scoring Index: 2.29 Left Ventricular Outflow Tract ---- Name Value Normal ---- LVOT 2D ---- LVOT Diameter 2.0 cm LVOT Doppler ---- LVOT Peak Velocity 1.1 m/s LVOT Mean Gradient 2 mmHg LVOT VTI 22 cm LVOT VTI/AV VTI Ratio 0.8 LVOT Stroke Volume 68 ml LVOT Stroke Index 30.30 ml/m2 Pulmonic Valve ---- Name Value Normal ---- PV 2D ---- RVOT Diameter (2D) 1.7 cm 1.7-2.7 RVOT Doppler ---- RVOT Peak Velocity 76 cm/s RVOT Mean Gradient 1 mmHg RVOT VTI 14 cm PV Doppler ---- PV Peak Velocity 1.16 m/s PV Mean Gradient 2 mmHg PV VTI 18 cm PV Area (Cont Eq VTI) 1.8 cm2 PV Area Index (Cont Eq VTI) 0.80 cm2/m2 PV Area (Cont Eq Viral) 1.5 cm2 PV Area Index (Cont Eq Viral) 0.66 cm2/m2 (more content not included)... [facility] Echocardiogram completeon Radiology Study observation (narrative) [facility] XR Lumbar Spine Standard wit h Flex/Ext 4+ Viewson 03-08-2021 1. No fracture. 2. Moderate degenerative changes of the lumbar spine as detailed above. Workstation ID: [id number] Spectral Image RIS EXAMINATION: XR LUMBAR SPINE STANDARD WITH FLEX/EXT 4+ VIEWS 03/07/2021 12:15 pm HISTORY: ORDERING SYSTEM PROVIDED HISTORY: Lumbar radiculopathy, TECHNOLOGIST PROVIDED HISTORY: Illness/Other Reason for exam: low back pain Cancer History: u Surgery, RadiationHistory: u Encounter Type: Initial Additional signs and symptoms: pt states she broke her back in the 90's ORDERING SYSTEM PROVIDED DIAGNOSIS CODES: M54.16 Lumbar radiculopathy FINDINGS: BONES: Mild left convex curvature of the lumbar spine. Grade 1 retrolisthesis of L2 on 3 without appreciable change in alignment during flexion and extension. Mild-moderate degenerative facet arthropathy L4-5, L5-S1. DISC SPACES: Moderate narrowing L2-3, L3-4. PARASPINOUS:No paraspinous abnormality is seen. OTHER: Negative. [facility] Maggi Rodriguez MD - 03/08/2021 EXAMINATION: XR LUMBAR SPINE STANDARD WITH FLEX/EXT 4+ VIEWS 03/07/2021 12:15 pm HISTORY: ORDERING SYSTEM PROVIDED HISTORY: Lumbar radiculopathy, TECHNOLOGIST PROVIDED HISTORY: Illness/Other Reason for exam: low back pain Cancer History: u Surgery, RadiationHistory: u Encounter Type: Initial Additional signs and symptoms: pt states she broke her back in the 90's ORDERING SYSTEM PROVIDED DIAGNOSIS CODES: M54.16 Lumbar radiculopathy FINDINGS: BONES: Mild left convex curvature of the lumbar spine. Grade 1 retrolisthesis of L2 on 3 without appreciable change in alignment during flexion and extension. Mild-moderate degenerative facet arthropathy L4-5, L5-S1. DISC SPACES: Moderate narrowing L2-3, L3-4. PARASPINOUS:No paraspinous abnormality is seen. OTHER: Negative. IMPRESSION: 1. No fracture. 2. Moderate degenerative changes of the lumbar spine as detailed above. Workstation ID: [id number] [facility] XR Lumbar Spine Standard wit h Flex/Ext 4+ ViewsOrdered By: Maggi Rodriguez on 03-08-2021 [facility] Work Phone: XR Lumbar Spine Standard wit h Flex/Ext 4+ Viewson 03-07-2021 Radiology Study observation (narrative) [facility] Vital Signs Date Time Vital Sign Value Performing Clinician Facility 05-23-2024 11:26-0400 Body height 177.8 cm Clair Dahl MD Work Phone: [facility] 05-23-2024 11:26-0400 Body mass index (BMI) [Ratio] 37 kg/m2 Clair Dahl MD Work Phone: [facility] 05-23-2024 [id number] Body weight 117.02 kg Clair Dahl MD Work Phone: [facility] 05-23-2024 11:26-0400 Diastolic blood pressure 77 mm[Hg] Clair Dahl MD Work Phone: [facility] 05-23-2024 11:26-0400 Heart rate 96 /min Clair Dahl MD Work Phone: [facility] 05-23-2024 11:26-0400 Systolic blood pressure 123 mm[Hg] Clair Dahl MD Work Phone: [facility] 12-20-2023 10:43-0400 Body height 177.8 cm Giovani Maria DPM Work Phone: [facility] 12-20-2023 10:43-0400 Body mass index (BMI) [Ratio] 31.71 kg/m2 Giovani Maria DPM Work Phone: [facility] 12-20-2023 10:43-0400 Body weight 100.25 kg Giovani Maria DPM Work Phone: [facility] 12-20-2023 10:43-0400 Diastolic blood pressure 77 mm[Hg] Giovani Maria DPM Work Phone: [facility] 12-20-2023 10:43-0400 Heart rate 79 /min Giovani Maria DPM Work Phone: [facility] 12-20-2023 10:43-0400 Systolic blood pressure 124 mm[Hg] Giovani Brown DPM Work Phone: [facility] 11-22-2023 12:08-0400 Body height 177.8 cm Giovani Brown DPM Work Phone: [facility] 11-22-2023 12:08-0400 Body mass index (BMI) [Ratio] 31.71 kg/m2 Giovani Brown DPM Work Phone: [facility] 11-22-2023 12:08-0400 Body weight 100.25 kg Giovani Brown DPM Work Phone: [facility] 11-22-2023 12:08-0400 Diastolic blood pressure 80 mm[Hg] Giovani Brown DPM Work Phone: [facility] 11-22-2023 12:08-0400 Heart rate 75 /min Giovani Brown DPM Work Phone: [facility] 11-22-2023 12:08-0400 Respiratory rate 18 /min Giovani Brown DPM Work Phone: [facility] 11-22-2023 12:08-0400 Systolic blood pressure 123 mm[Hg] Giovani Brown DPM Work Phone: [facility] 11-08-2023 11:15-0400 Body height 177.8 cm Giovani Brown DPM Work Phone: [facility] 11-08-2023 11:15-0400 Body mass index (BMI) [Ratio] 31.71 kg/m2 Giovani Brown DPM Work Phone: [facility] 11-08-2023 11:15-0400 Body weight 100.25 kg Giovani Brown DPM Work Phone: [facility] 11-08-2023 11:15-0400 Diastolic blood pressure 80 mm[Hg] Giovani Brown DPM Work Phone: [facility] 11-08-2023 11:15-0400 Heart rate 74 /min Giovani Obey DPM Work Phone: [facility] 11-08-2023 11:15-0400 Respiratory rate 18 /min Giovani Maria DPM Work Phone: [facility] 11-08-2023 11:15-0400 Systolic blood pressure 123 mm[Hg] Giovani Maria DPM Work Phone: [facility] 10-25-2023 10:45-0400 Body height 177.8 cm Giovani Maria DPM Work Phone: [facility] 10-25-2023 10:45-0400 Body mass index (BMI) [Ratio] 31.71 kg/m2 Giovani Obey DPM Work Phone: [facility] 10-25-2023 10:45-0400 Body weight 100.25 kg Giovani Maria DPM Work Phone: [facility] 10-25-2023 10:45-0400 Diastolic blood pressure 80 mm[Hg] Giovani Maria DPM Work Phone: [facility] 10-25-2023 10:45-0400 Heart rate 78 /min Giovani Maria DPM Work Phone: [facility] 10-25-2023 10:45-0400 Systolic blood pressure 124 mm[Hg] Giovani Maria DPM Work Phone: [facility] 06-22-2023 11:22-0400 Body height 177.8 cm [facility] 06-22-2023 11:22-0400 Body mass index (BMI) [Ratio] 34.4 kg/m2 [facility] 06-22-2023 11:22-0400 Body weight 108.86 kg [facility] 06-22-2023 11:22-0400 Diastolic blood pressure 74 mm[Hg] [facility] 06-22-2023 11:22-0400 Heart rate 79 /min [facility] 06-22-2023 11:22-0400 Systolic blood pressure 118 mm[Hg] [facility] 06-19-2023 13:34-0400 Body height 177.8 cm Vijay Acuna MD Work Phone: [facility] 06-19-2023 13:34-0400 Body mass index (BMI) [Ratio] 34.15 kg/m2 Vijay Acuna MD Work Phone: [facility] 06-19-2023 13:34-0400 Body weight 107.96 kg Vijay Acuna MD Work Phone: [facility] 06-19-2023 13:34-0400 Diastolic blood pressure 73 mm[Hg] Vijay Acuna MD Work Phone: [facility] 06-19-2023 13:34-0400 Heart rate 74 /min Vijay Acuna MD Work Phone: [facility] 06-19-2023 13:34-0400 SaO2% (BldA) [Mass fraction] 93 % Vijay Acuna MD Work Phone: [facility] 06-19-2023 13:34-0400 Systolic blood pressure 123 mm[Hg] Vijay Acuna MD Work Phone: [facility] 02-22-2023 11:30-0500 Body height 177.8 cm Clair Dahl Other [facility] Other 02-22-2023 11:30-0500 Body mass index (BMI) [Ratio] 33.72 kg/m2 Clair Dahl Other [facility] Other 02-22-2023 11:30-0500 Body temperature 97.2 [degF] Clair Dahl Other [facility] Other 02-22-2023 11:30-0500 Body weight 106.6 kg Clair Dahl Other [facility] Other 02-22-2023 11:30-0500 Diastolic blood pressure 83 mm[Hg] Clair Dahl Other [facility] Other 02-22-2023 11:30-0500 SaO2% (BldA) [Mass fraction] 97 % Clair Dahl Other [facility] Other 02-22-2023 11:30-0500 Systolic blood pressure 121 mm[Hg] Clair Dahl Other [facility] Other 02-01-2023 11:30-0500 Body height 177.8 cm Clair Dahl Other [facility] Other 02-01-2023 11:30-0500 Body mass index (BMI) [Ratio] 33.72 kg/m2 Clair Dahl Other [facility] Other 02-01-2023 11:30-0500 Body weight 106.6 kg Clair Dahl Other [facility] Other 02-01-2023 11:30-0500 Diastolic blood pressure 74 mm[Hg] Clair Dahl Other [facility] Other 02-01-2023 11:30-0500 Systolic blood pressure 121 mm[Hg] Clair Dahl Other [facility] Other 01-09-2023 14:15-0500 Body height 177.8 cm Clair Dahl Other [facility] Other 01-09-2023 14:15-0500 Body mass index (BMI) [Ratio] 34.09 kg/m2 Clair Dahl Other [facility] Other 01-09-2023 14:15-0500 Body temperature 96.6 [degF] Clair Dahl Other [facility] Other 01-09-2023 14:15-0500 Body weight 107.78 kg Clair Dahl Other [facility] Other 01-09-2023 14:15-0500 Diastolic blood pressure 72 mm[Hg] Clair Dahl Other [facility] Other 01-09-2023 14:15-0500 Systolic blood pressure 114 mm[Hg] Clair Dahl Other [facility] Other 12-13-2022 11:30-0400 Body height 177.8 cm Clair Dahl Other [facility] Other 12-13-2022 11:30-0400 Body mass index (BMI) [Ratio] 34.06 kg/m2 Clair Dahl Other [facility] Other 12-13-2022 11:30-0400 Body weight 107.68 kg Clair Dahl Other [facility] Other 12-13-2022 11:30-0400 Diastolic blood pressure 66 mm[Hg] Clair Dahl Other [facility] Other 12-13-2022 11:30-0400 Systolic blood pressure 102 mm[Hg] Clair Dahl Other [facility] Other 12-12-2022 13:55-0400 Body temperature 97.9 [degF] Caroline Carrion PA-C Work Phone: [facility] 12-12-2022 13:55-0400 Diastolic blood pressure 88 mm[Hg] Caroline Carrion PA-C Work Phone: [facility] 12-12-2022 13:55-0400 Heart rate 78 /min Caroline Fair PA-C Work Phone: [facility] 12-12-2022 13:55-0400 Respiratory rate 18 /min Caroline Fair PA-C Work Phone: [facility] 12-12-2022 13:55-0400 SaO2% (BldA) [Mass fraction] 98 % Caroline Fair PA-C Work Phone: [facility] 12-12-2022 13:55-0400 Systolic blood pressure 142 mm[Hg] Caroline Fair PA-C Work Phone: [facility] 11-08-2022 12:54-0400 Diastolic blood pressure 78 mm[Hg] Caroline Fair PA-C Work Phone: [facility] 11-08-2022 12:54-0400 Heart rate 75 /min Caroline Fair PA-C Work Phone: [facility] 11-08-2022 12:54-0400 Respiratory rate 16 /min Caroline Fair PA-C Work Phone: [facility] 11-08-2022 12:54-0400 SaO2% (BldA) [Mass fraction] 97 % Caroline Fair PA-C Work Phone: [facility] 11-08-2022 12:54-0400 Systolic blood pressure 121 mm[Hg] Caroline Fair PA-C Work Phone: [facility] 11-02-2022 11:00-0400 Body height 177.8 cm Clair Dahl Other [facility] Other 11-02-2022 11:00-0400 Body mass index (BMI) [Ratio] 34.03 kg/m2 Clair Dahl Other [facility] Other 11-02-2022 11:00-0400 Body weight 107.59 kg Clair Dahl Other [facility] Other 11-02-2022 11:00-0400 Diastolic blood pressure 72 mm[Hg] Clair Dahl Other [facility] Other 11-02-2022 11:00-0400 Systolic blood pressure 113 mm[Hg] Clair Dahl Other [facility] Other 11-01-2022 13:30-0400 Diastolic blood pressure 52 mm[Hg] Caroline Fair PA-C Work Phone: [facility] 11-01-2022 13:30-0400 Heart rate 78 /min Caroline Fair PA-C Work Phone: [facility] 11-01-2022 13:30-0400 Respiratory rate 18 /min Caroline Fair PA-C Work Phone: [facility] 11-01-2022 13:30-0400 SaO2% (BldA) [Mass fraction] 97 % Caroline Fair PA-C Work Phone: [facility] 11-01-2022 13:30-0400 Systolic blood pressure 111 mm[Hg] Caroline Fair PA-C Work Phone: [facility] 10-04-2022 11:40-0400 Body temperature 98.01 [degF] Dionna Green [employer] Work Phone: [facility] 10-04-2022 11:40-0400 Diastolic blood pressure 57 mm[Hg] Dionna Green [employer] Work Phone: [facility] 10-04-2022 11:40-0400 Heart rate 83 /min Dionna Green [employer] Work Phone: [facility] 10-04-2022 11:40-0400 Respiratory rate 18 /min Dionna Green [employer] Work Phone: [facility] 10-04-2022 11:40-0400 SaO2% (BldA) [Mass fraction] 96 % Dionna Green [employer] Work Phone: [facility] 10-04-2022 11:40-0400 Systolic blood pressure 112 mm[Hg] Dionna Green [employer] Work Phone: [facility] 09-13-2022 10:00-0400 Body height 177.8 cm Clair Dahl Other [facility] Other 09-13-2022 10:00-0400 Body mass index (BMI) [Ratio] 33 kg/m2 Clair Dahl Other [facility] Other 09-13-2022 10:00-0400 Body weight 104.33 kg Clair Dahl Other [facility] Other 09-13-2022 10:00-0400 Diastolic blood pressure 69 mm[Hg] Clair Dahl Other [facility] Other 09-13-2022 10:00-0400 Systolic blood pressure 102 mm[Hg] Clair Dahl Other [facility] Other 09-08-2022 10:06-0400 Body temperature 98.01 [degF] Dionna Green [employer] Work Phone: [facility] 09-08-2022 10:06-0400 Diastolic blood pressure 70 mm[Hg] Dionna Green [employer] Work Phone: [facility] 09-08-2022 10:06-0400 Heart rate 75 /min Dionna Green [employer] Work Phone: [facility] 09-08-2022 10:06-0400 SaO2% (BldA) [Mass fraction] 97 % Dionna Green [employer] Work Phone: [facility] 09-08-2022 10:06-0400 Systolic blood pressure 114 mm[Hg] Dionna Green [employer] Work Phone: [facility] 08-25-2022 07:30-0400 Body temperature 98.1 [degF] Edgar Dhaliwal MD Work Phone: [facility] 08-25-2022 07:30-0400 Diastolic blood pressure 74 mm[Hg] Edgar Dhaliwal MD Work Phone: [facility] 08-25-2022 07:30-0400 Heart rate 75 /min Edgar Dhaliwal MD Work Phone: [facility] 08-25-2022 07:30-0400 Respiratory rate 18 /min Edgar Dhaliwal MD Work Phone: [facility] 08-25-2022 07:30-0400 SaO2% (BldA) [Mass fraction] 93 % Edgar Dhaliwal MD Work Phone: [facility] 08-25-2022 07:30-0400 Systolic blood pressure 121 mm[Hg] Edgar Dhaliwal MD Work Phone: [facility] 08-24-2022 09:42-0400 Body height 177.8 cm Edgar Dhaliwal MD Work Phone: [facility] 08-24-2022 09:42-0400 Body mass index (BMI) [Ratio] 33.72 kg/m2 Edgar Dhaliwal MD Work Phone: [facility] 08-24-2022 09:42-0400 Body weight 106.6 kg Edgar Dhaliwal MD Work Phone: [facility] 08-04-2022 11:59-0400 Body temperature 98.71 [degF] Dionna Green [employer] Work Phone: [facility] 08-04-2022 11:59-0400 Diastolic blood pressure 70 mm[Hg] Dionna Green [employer] Work Phone: [facility] 08-04-2022 11:59-0400 Heart rate 74 /min Dionna Green [employer] Work Phone: [facility] 08-04-2022 11:59-0400 SaO2% (BldA) [Mass fraction] 95 % Dionna Green [employer] Work Phone: [facility] 08-04-2022 11:59-0400 Systolic blood pressure 116 mm[Hg] Dionna Green [employer] Work Phone: [facility] 08-01-2022 11:26-0400 Body temperature 97.5 [degF] Edgar Dhaliwal MD Work Phone: [facility] 08-01-2022 11:26-0400 Diastolic blood pressure 73 mm[Hg] Edgar Dhaliwal MD Work Phone: [facility] 08-01-2022 11:26-0400 Heart rate 73 /min Edgar Dhaliwal MD Work Phone: [facility] 08-01-2022 11:26-0400 Respiratory rate 16 /min Edgar Dhaliwal MD Work Phone: [facility] 08-01-2022 11:26-0400 SaO2% (BldA) [Mass fraction] 96 % Edgar Dhaliwal MD Work Phone: [facility] 08-01-2022 11:26-0400 Systolic blood pressure 132 mm[Hg] Edgar Dhaliwal MD Work Phone: [facility] 08-01-2022 08:17-0400 Body height 177.8 cm Edgar Dhaliwal MD Work Phone: [facility] 08-01-2022 08:17-0400 Body mass index (BMI) [Ratio] 33.21 kg/m2 Edgar Dhaliwal MD Work Phone: [facility] 08-01-2022 08:17-0400 Body weight 105 kg Edgar Dhaliwal MD Work Phone: [facility] 07-20-2022 11:15-0400 Body height 177.8 cm Clair Dahl Other [facility] Other 07-20-2022 11:15-0400 Body mass index (BMI) [Ratio] 34 kg/m2 Clair Dahl Other [facility] Other 07-20-2022 11:15-0400 Body weight 107.5 kg Clair Dahl Other [facility] Other 07-20-2022 11:15-0400 Diastolic blood pressure 76 mm[Hg] Calir Dahl Other [facility] Other 07-20-2022 11:15-0400 Systolic blood pressure 108 mm[Hg] Clair Dahl Other [facility] Other 06-28-2022 12:56-0400 Body height 177.8 cm Edgar Dhaliwal MD Work Phone: [facility] 06-28-2022 12:56-0400 Body mass index (BMI) [Ratio] 31.85 kg/m2 Edgar Dhaliwal MD Work Phone: [facility] 06-28-2022 12:56-0400 Body weight 100.7 kg Edgar Dhaliwal MD Work Phone: [facility] 06-28-2022 12:56-0400 Diastolic blood pressure 75 mm[Hg] Edgar Dhaliwal MD Work Phone: [facility] 06-28-2022 12:56-0400 Heart rate 71 /min Edgar Dhaliwal MD Work Phone: [facility] 06-28-2022 12:56-0400 Respiratory rate 16 /min Edgar Dhaliwal MD Work Phone: [facility] 06-28-2022 12:56-0400 SaO2% (BldA) [Mass fraction] 95 % Edgar Dhaliwal MD Work Phone: [facility] 06-28-2022 12:56-0400 Systolic blood pressure 130 mm[Hg] dEgar Dhaliwal MD Work Phone: [facility] 06-05-2022 14:15-0400 Body height 177.8 cm Vijay Acuna MD Work Phone: [facility] 06-05-2022 14:15-0400 Body mass index (BMI) [Ratio] 32.57 kg/m2 Vijay Acuna MD Work Phone: [facility] 06-05-2022 14:15-0400 Body weight 102.97 kg Vijay Acuna MD Work Phone: [facility] 06-05-2022 14:15-0400 Diastolic blood pressure 72 mm[Hg] Vijay Acuna MD Work Phone: [facility] 06-05-2022 14:15-0400 Heart rate 88 /min Vijay Acuna MD Work Phone: [facility] 06-05-2022 14:15-0400 SaO2% (BldA) [Mass fraction] 95 % Vijay Acuna MD Work Phone: [facility] 06-05-2022 14:15-0400 Systolic blood pressure 119 mm[Hg] Vijay Acuna MD Work Phone: [facility] 05-31-2022 13:37-0400 Body temperature 98.71 [degF] Edgar Dhaliwal MD Work Phone: [facility] 05-31-2022 13:37-0400 Diastolic blood pressure 65 mm[Hg] Edgar Dhaliwal MD Work Phone: [facility] 05-31-2022 13:37-0400 Heart rate 75 /min Edgar Dhaliwal MD Work Phone: [facility] 05-31-2022 13:37-0400 SaO2% (BldA) [Mass fraction] 99 % Edgar Dhaliwal MD Work Phone: [facility] 05-31-2022 13:37-0400 Systolic blood pressure 112 mm[Hg] Edgar Dhaliwal MD Work Phone: [facility] 04-20-2022 13:28-0500 Diastolic blood pressure 77 mm[Hg] Erika Louis PA-C Work Phone: [facility] 04-20-2022 13:28-0500 Heart rate 80 /min Erika GOULD-Rylie Work Phone: [facility] 04-20-2022 13:28-0500 SaO2% (BldA) [Mass fraction] 96 % Erika Louis PA-C Work Phone: [facility] 04-20-2022 13:28-0500 Systolic blood pressure 116 mm[Hg] Erika Louis PA-C Work Phone: [facility] 03-07-2022 14:30-0500 Body height 177.8 cm Clair Dahl Other [facility] Other 03-07-2022 14:30-0500 Body mass index (BMI) [Ratio] 32.42 kg/m2 Clair Dahl Other [facility] Other 03-07-2022 14:30-0500 Body weight 102.51 kg Clair Dahl Other [facility] Other 03-07-2022 14:30-0500 Diastolic blood pressure 72 mm[Hg] Clair Dahl Other [facility] Other 03-07-2022 14:30-0500 SaO2% (BldA) [Mass fraction] 98 % Clair Dahl Other [facility] Other 03-07-2022 14:30-0500 Systolic blood pressure 120 mm[Hg] Clair Dahl Other [facility] Other 03-02-2022 14:02-0500 Diastolic blood pressure 77 mm[Hg] Erika Louis PA-C Work Phone: [facility] 03-02-2022 14:02-0500 Heart rate 82 /min Erika Louis PA-C Work Phone: [facility] 03-02-2022 14:02-0500 Respiratory rate 16 /min Erika Louis PA-C Work Phone: [facility] 03-02-2022 14:02-0500 SaO2% (BldA) [Mass fraction] 96 % Erika Louis PA-C Work Phone: [facility] 03-02-2022 14:02-0500 Systolic blood pressure 115 mm[Hg] Erika Louis PA-C Work Phone: [facility] 01-25-2022 10:49-0500 Body temperature 98.01 [degF] Erika Louis PA-C Work Phone: [facility] 01-25-2022 10:49-0500 Diastolic blood pressure 77 mm[Hg] Erika Louis PA-C Work Phone: [facility] 01-25-2022 10:49-0500 Heart rate 84 /min Erika Louis PA-C Work Phone: [facility] 01-25-2022 10:49-0500 SaO2% (BldA) [Mass fraction] 97 % Erika Louis PA-C Work Phone: [facility] 01-25-2022 10:49-0500 Systolic blood pressure 116 mm[Hg] Erika Louis PA-C Work Phone: [facility] 01-13-2022 12:15-0500 Body temperature 98.2 [degF] Edgar Dhaliwal MD Work Phone: [facility] 01-13-2022 11:49-0500 Diastolic blood pressure 73 mm[Hg] Edgar Dhaliwal MD Work Phone: [facility] 01-13-2022 11:49-0500 Respiratory rate 16 /min Edgar Dhaliwal MD Work Phone: [facility] 01-13-2022 11:49-0500 SaO2% (BldA) [Mass fraction] 95 % Edgar Dhaliwal MD Work Phone: [facility] 01-13-2022 11:49-0500 Systolic blood pressure 125 mm[Hg] Edgar Dhaliwal MD Work Phone: [facility] 01-13-2022 11:10-0500 Heart rate 80 /min Edgar Dhaliwal MD Work Phone: [facility] 01-13-2022 06:15-0500 Body height 177.8 cm Edgar Dhaliwal MD Work Phone: [facility] 01-13-2022 06:15-0500 Body mass index (BMI) [Ratio] 31.82 kg/m2 Edgar Dhaliwal MD Work Phone: [facility] 01-13-2022 06:15-0500 Body weight 100.6 kg Edgar Dhaliwal MD Work Phone: [facility] 12-29-2021 10:03-0400 Body mass index (BMI) [Ratio] 31.28 kg/m2 Ami Jannet [employer] Work Phone: [facility] 12-29-2021 10:03-0400 Body weight 98.88 kg Ami Jannet [employer] Work Phone: [facility] 12-29-2021 10:03-0400 Diastolic blood pressure 71 mm[Hg] Ami Jannet [employer] Work Phone: [facility] 12-29-2021 10:03-0400 Heart rate 70 /min Ami Jannet [employer] Work Phone: [facility] 12-29-2021 10:03-0400 Systolic blood pressure 129 mm[Hg] Ami Jannet [employer] Work Phone: [facility] 11-24-2021 12:50-0400 Diastolic blood pressure 79 mm[Hg] Edgar Dhaliwal MD Work Phone: [facility] 11-24-2021 12:50-0400 Heart rate 71 /min Edgar Dhaliwal MD Work Phone: [facility] 11-24-2021 12:50-0400 SaO2% (BldA) [Mass fraction] 96 % Edgar Dhaliwal MD Work Phone: [facility] 11-24-2021 12:50-0400 Systolic blood pressure 124 mm[Hg] Edgar Dhaliwal MD Work Phone: [facility] 11-09-2021 14:02-0400 Body height 177.8 cm Vijay Acuna MD Work Phone: [facility] 11-09-2021 14:02-0400 Body mass index (BMI) [Ratio] 30.56 kg/m2 Vijay Acuna MD Work Phone: [facility] 11-09-2021 14:02-0400 Body weight 96.62 kg Vijay Acuna MD Work Phone: [facility] 11-09-2021 14:02-0400 Diastolic blood pressure 84 mm[Hg] Vijay Acuna MD Work Phone: [facility] 11-09-2021 14:02-0400 Heart rate 75 /min Vijay Acuna MD Work Phone: [facility] 11-09-2021 14:02-0400 SaO2% (BldA) [Mass fraction] 95 % Vijay Acuna MD Work Phone: [facility] 11-09-2021 14:02-0400 Systolic blood pressure 131 mm[Hg] Vijay Acuna MD Work Phone: [facility] 09-15-2021 08:58-0400 Body height 177.8 cm Vijay Acuna MD Work Phone: [facility] 09-15-2021 08:58-0400 Body mass index (BMI) [Ratio] 31.14 kg/m2 Vijay Acuna MD Work Phone: [facility] 09-15-2021 08:58-0400 Body weight 98.43 kg Vijay Acuna MD Work Phone: [facility] 09-15-2021 08:58-0400 Diastolic blood pressure 73 mm[Hg] Vijay Acuna MD Work Phone: [facility] 09-15-2021 08:58-0400 Heart rate 82 /min Vijay Acuna MD Work Phone: [facility] 09-15-2021 08:58-0400 SaO2% (BldA) [Mass fraction] 95 % Vijay Acuna MD Work Phone: [facility] 09-15-2021 08:58-0400 Systolic blood pressure 116 mm[Hg] Vijay Acuna MD Work Phone: [facility] 08-31-2021 10:26-0400 Body height 177.8 cm Ami Jannet [employer] Work Phone: [facility] 08-31-2021 10:26-0400 Body mass index (BMI) [Ratio] 31.28 kg/m2 Ami Jannet [employer] Work Phone: [facility] 08-31-2021 10:26-0400 Body weight 98.88 kg Ami Jannet [employer] Work Phone: [facility] 08-31-2021 10:26-0400 Diastolic blood pressure 76 mm[Hg] Ami Jannet [employer] Work Phone: [facility] 08-31-2021 10:26-0400 Heart rate 70 /min Ami Jannet [employer] Work Phone: [facility] 08-31-2021 10:26-0400 Systolic blood pressure 118 mm[Hg] Ami Jannet [employer] Work Phone: [facility] 08-09-2021 11:14-0400 Body height 177.8 cm Ami Jannet [employer] Work Phone: [facility] 08-09-2021 11:14-0400 Body mass index (BMI) [Ratio] 31.42 kg/m2 Ami Jannet [employer] Work Phone: [facility] 08-09-2021 11:14-0400 Body weight 99.34 kg Ami Jannet [employer] Work Phone: [facility] 08-09-2021 11:14-0400 Diastolic blood pressure 75 mm[Hg] Ami Jannet [employer] Work Phone: [facility] 08-09-2021 11:14-0400 Heart rate 65 /min Ami Jannet [employer] Work Phone: [facility] 08-09-2021 11:14-0400 Systolic blood pressure 124 mm[Hg] Ami Jannet [employer] Work Phone: [facility] 08-03-2021 14:23-0400 Diastolic blood pressure 77 mm[Hg] Vijay Acuna MD Work Phone: [facility] 08-03-2021 14:23-0400 Systolic blood pressure 120 mm[Hg] Vijay Acuna MD Work Phone: [facility] 08-03-2021 14:15-0400 Body height 177.8 cm Vijay Acuna MD Work Phone: [facility] 08-03-2021 14:15-0400 Body mass index (BMI) [Ratio] 31.14 kg/m2 Vijay Acuna MD Work Phone: [facility] 08-03-2021 14:15-0400 Body weight 98.43 kg Vijay Acuna MD Work Phone: [facility] 08-03-2021 14:15-0400 Heart rate 79 /min Vijay Acuna MD Work Phone: [facility] 08-03-2021 14:15-0400 SaO2% (BldA) [Mass fraction] 96 % Vijay Acuna MD Work Phone: [facility] 07-25-2021 07:52-0400 Body height 177.8 cm Ami Jannet [employer] Work Phone: [facility] 07-25-2021 07:52-0400 Body mass index (BMI) [Ratio] 32.13 kg/m2 Ami Jannet [employer] Work Phone: [facility] 07-25-2021 07:52-0400 Body weight 101.56 kg Ami Jannet [employer] Work Phone: [facility] 07-25-2021 07:52-0400 Diastolic blood pressure 72 mm[Hg] Ami Jannet [employer] Work Phone: [facility] 07-25-2021 07:52-0400 Heart rate 83 /min Ami Jannet [employer] Work Phone: [facility] 07-25-2021 07:52-0400 SaO2% (BldA) [Mass fraction] 98 % Ami Jannet [employer] Work Phone: [facility] 07-25-2021 07:52-0400 Systolic blood pressure 138 mm[Hg] Ami Jannet [employer] Work Phone: [facility] 07-05-2021 10:18-0400 Body height 177.8 cm Vijay Acuna MD Work Phone: [facility] 07-05-2021 10:18-0400 Body mass index (BMI) [Ratio] 31.57 kg/m2 Vijay Acuna MD Work Phone: [facility] 07-05-2021 10:18-0400 Body weight 99.79 kg Vijay Acuna MD Work Phone: [facility] 07-05-2021 10:18-0400 Diastolic blood pressure 78 mm[Hg] Vijay Acuna MD Work Phone: [facility] 07-05-2021 10:18-0400 Heart rate 90 /min Vijay Acuna MD Work Phone: [facility] 07-05-2021 10:18-0400 SaO2% (BldA) [Mass fraction] 96 % Vijay Acuna MD Work Phone: [facility] 07-05-2021 10:18-0400 Systolic blood pressure 133 mm[Hg] Vijay Acuna MD Work Phone: [facility] 05-23-2021 14:30-0400 Diastolic blood pressure 82 mm[Hg] Edgar Dhaliwal MD Work Phone: [facility] 05-23-2021 14:30-0400 Heart rate 76 /min Edgar Dhaliwal MD Work Phone: [facility] 05-23-2021 14:30-0400 Respiratory rate 16 /min Edgar Dhlaiwal MD Work Phone: [facility] 05-23-2021 14:30-0400 Systolic blood pressure 150 mm[Hg] Edgar Dhaliwal MD Work Phone: [facility] 04-20-2021 16:00-0500 Body height 177.8 cm Kareem Lagunas Other [facility] Other 04-20-2021 16:00-0500 Body mass index (BMI) [Ratio] 31.85 kg/m2 Kareem Lagunas Other [facility] Other 04-20-2021 16:00-0500 Body weight 100.7 kg Kareem Ariasky Other [facility] Other 04-20-2021 16:00-0500 Diastolic blood pressure 70 mm[Hg] Kareem Janneth Other [facility] Other 04-20-2021 16:00-0500 Systolic blood pressure 124 mm[Hg] Kareem Janneth Other [facility] Other 03-07-2021 10:50-0500 Diastolic blood pressure 78 mm[Hg] Erika Louis PA-C Work Phone: [facility] 03-07-2021 10:50-0500 Heart rate 97 /min Erika Louis PA-C Work Phone: [facility] 03-07-2021 10:50-0500 SaO2% (BldA) [Mass fraction] 97 % Erika Louis PA-C Work Phone: [facility] 03-07-2021 10:50-0500 Systolic blood pressure 139 mm[Hg] Erika GOULD-C Work Phone: [facility] Encounters Encounter Date Encounter Type Care Provider Facility Start: 05-23-2024 End: 05-23-2024 ambulatory Clair Dahl MD Work Phone: [facility] Work Phone: Start: 05-23-2024 End: 05-23-2024 Patient encounter procedure Clair Dahl MD Work Phone: [facility] Work Phone: Start: 05-08-2024 End: 05-08-2024 Patient encounter procedure [facility] Work Phone: Start: 05-08-2024 End: 05-08-2024 ambulatory Clair Dahl Facility:[facility] Start: 05-08-2024 End: 05-08-2024 Departed Referred Clair Dahl MD Work Phone: [facility] [place] Work Phone: Start: 04-16-2024 End: 04-16-2024 Refill Tamie Enrique MA Work Phone: [facility] Comment on above: Medication Refill Start: 03-14-2024 End: 03-14-2024 Documentation procedure Caroline Carrion PA-C Work Phone: [facility] Start: 03-12-2024 End: 03-12-2024 Documentation procedure Caroline Carrion PA-C Work Phone: [facility] Start: 03-07-2024 End: 03-07-2024 ambulatory CAROLINE CARRION [facility] Start: 12-20-2023 End: 12-20-2023 Bamboo flowsheet Giovani Maria DPM Work Phone: [facility] Start: 12-20-2023 End: 12-20-2023 Bamboo flowsheet Giovani Maria DPM Work Phone: [facility] Start: 12-20-2023 End: 12-20-2023 Office outpatient visit 15 minutes Giovani Maria DPM Work Phone: [facility] Comment on above: Plantar fasciitis (P rimary Dx); Contracture of left ankle Start: 12-20-2023 End: 12-20-2023 ambulatory GIOVANI MARIA Not Available Start: 11-22-2023 End: 11-22-2023 Bamboo flowsheet Giovani Maria DPM Work Phone: [facility] Start: 11-22-2023 End: 11-22-2023 Bamboo flowsheet Giovani Maria DPM Work Phone: [facility] Start: 11-22-2023 End: 11-22-2023 Office outpatient visit 15 minutes Giovani Maria DPM Work Phone: [facility] Comment on above: Plantar fasciitis (P rimary Dx); Contracture of left ankle Start: 11-22-2023 End: 11-22-2023 ambulatory GIOVANI MARIA Not Available Start: 11-08-2023 End: 11-08-2023 Bamboo flowsheet Giovani Maria DPM Work Phone: [facility] Start: 11-08-2023 End: 11-08-2023 Bamboo flowsheet Giovani Maria DPM Work Phone: [facility] Start: 11-08-2023 End: 11-08-2023 Clinical Support Giovani Maria DPM Work Phone: [facility] Comment on above: Plantar fasciitis (P rimary Dx); Contracture of left ankle Start: 11-08-2023 End: 11-08-2023 ambulatory GIOVANI MARIA Not Available Start: 10-25-2023 End: 10-25-2023 Bamboo flowsheet Giovani Maria DPM Work Phone: [facility] Start: 10-25-2023 End: 10-25-2023 Bamboo flowsheet Giovani Maria DPM Work Phone: [facility] Start: 10-25-2023 End: 10-25-2023 Clinical Support Giovani Maria DPM Work Phone: [facility] Comment on above: Plantar fasciitis (P rimary Dx); Contracture of left ankle Start: 10-25-2023 End: 10-25-2023 ambulatory GIOVANI MARIA Not Available Start: 10-17-2023 End: 10-17-2023 Chart abstracting Chely So MA [facility] Comment on above: Medication Refill Start: 10-11-2023 End: 10-11-2023 ambulatory GIOVANI MARIA Not Available Start: 08-28-2023 End: 08-28-2023 ambulatory MD Clair Dahl Work Phone: [facility] Work Phone: Start: 08-28-2023 End: 08-28-2023 Patient encounter procedure MD Clair Dahl Work Phone: [facility] Work Phone: Start: 07-17-2023 End: 07-17-2023 ambulatory [facility] Start: 07-03-2023 End: 07-03-2023 ambulatory MD Clair Dahl Work Phone: [facility] Work Phone: Start: 07-03-2023 End: 07-03-2023 Patient encounter procedure MD Clair Dahl Work Phone: [facility] Work Phone: Start: 06-22-2023 End: 06-22-2023 ambulatory [facility] Work Phone: Start: 06-22-2023 End: 06-22-2023 Patient encounter procedure [facility] Work Phone: Start: 06-21-2023 Refill Erika Buckner MA [facility] Comment on above: Medication Refill Start: 06-19-2023 End: 06-19-2023 Office outpatient visit 25 minutes Vijay Acuna MD Work Phone: [facility] Comment on above: Chronic systolic HF (heart failure) (HCC) (Primary Dx); DE OLIVEIRA (dyspnea on exertion); Chest pressure; Hyperlipidemia, unspecified hyperlipidemia type Start: 06-19-2023 End: 06-19-2023 ambulatory CLAIR DAHL [facility] Ambulato ry Start: 06-07-2023 ambulatory ERIKA BUCKNER [facility] Ambulatory Start: 05-31-2023 Refill Meir Huffman RN [facility] Comment on above: Medication Refill Start: 05-16-2023 Refill Erika Buckner MA [facility] Comment on above: Medication Refill Start: 04-06-2023 ambulatory CAROLINE CARRION [facility] Ambulatory Start: 02-22-2023 End: 02-22-2023 ambulatory Clair Dahl Other [facility] Other Start: 02-22-2023 Office outpatient vi sit 15 minutes Clair Dahl [facility] Start: 02-06-2023 End: 02-06-2023 Patient encounter procedure Caroline Carrion PA-C Work Phone: [facility] Comment on above: Carpal tunnel syndro me on left (Primary Dx); Ellison sign present; Numbness and tingling in left arm Start: 02-06-2023 Documentation procedure Judie Carrion PA-C Work Phone: [facility] Start: 02-01-2023 End: 02-01-2023 ambulatory Clair Dahl Other [facility] Other Start: 02-01-2023 Office outpatient vi sit 15 minutes Clair Dahl [facility] Start: 01-29-2023 Orders Only Caroline holcomb PA-C Work Phone: [facility] Comment on above: Ellison sign present (Primary Dx) Start: 01-24-2023 Documentation procedure Judie Carrion PA-C Work Phone: [facility] Start: 01-09-2023 End: 01-09-2023 ambulatory Clair Dahl Other [facility] Other Start: 01-09-2023 Office outpatient vi sit 15 minutes Clair Dahl [facility] Start: 12-13-2022 Office outpatient vi sit 15 minutes Clair Dahl [facility] Start: 12-13-2022 End: 12-13-2022 Orders Only Caroline Carrion PA-C Work Phone: [facility] Comment on above: Ellison sign present (Primary Dx); Numbness and tingling in left arm Start: 12-12-2022 End: 12-12-2022 Postop follow up visit related to original px Caroline Carrion PA-C Work Phone: [facility] Comment on above: Status post insertio n of spinal cord stimulator (Primary Dx) Start: 11-17-2022 Documentation procedure Hue Huffman RN [facility] Start: 11-16-2022 Orders Only Caroline holcomb PA-C Work Phone: [facility] Start: 11-08-2022 End: 11-08-2022 Postop follow up visit related to original px Caroline Carrion PA-C Work Phone: [facility] Comment on above: Status post insertio n of spinal cord stimulator (Primary Dx) Start: 11-03-2022 End: 11-03-2022 Postop follow up visit related to original px Caroline Carrion PA-C Work Phone: [facility] Comment on above: Status post insertio n of spinal cord stimulator (Primary Dx); Failed back syndrome, lumbosacral; Neuropathy Start: 11-02-2022 Office outpatient vi sit 15 minutes Clair Dahl [facility] Start: 11-02-2022 End: 11-02-2022 Orders Only Caroline Alexi Carrion PA-C Work Phone: [facility] Start: 11-01-2022 Refill Vijay Aucna MD Work Phone: [facility] Comment on above: Medication Refill Start: 11-01-2022 End: 11-01-2022 Postop follow up visit related to original px Caroline Alexi Carrion PA-C Work Phone: [facility] Comment on above: Status post insertio n of spinal cord stimulator (Primary Dx) Start: 10-04-2022 End: 10-04-2022 Postop follow up visit related to original px Dionna Corrigan [employer] Work Phone: [facility] Comment on above: Status post insertio n of spinal cord stimulator (Primary Dx); Neuropathy Start: 10-02-2022 Refill Ami Gonzalez Jaspreet ax [employer] Work Phone: [facility] Comment on above: Medication Refill Start: 09-23-2022 Refill Ami L. Jaspreet ax [employer] Work Phone: [facility] Comment on above: Medication Refill Start: 09-21-2022 End: 09-21-2022 ambulatory Clair Dahl Other [facility] Other Start: 09-21-2022 Telephone encounter Clair WINSLOW [employer] Start: 09-13-2022 End: 09-13-2022 ambulatory Clair Dahl Other [facility] Other Start: 09-13-2022 Office outpatient vi sit 15 minutes Clair WINSLOW [facility] Start: 09-08-2022 End: 09-08-2022 Postop follow up visit related to original px Dionna Corrigan [employer] Work Phone: [facility] Comment on above: Status post insertio n of spinal cord stimulator (Primary Dx); Failed back syndrome, lumbosacral; Status post lumbar discectomy; Neuropathy Start: 08-24-2022 End: 08-25-2022 Subsequent hospital visit by physician Edgar Dhaliwal MD Work Phone: [facility] Start: 08-04-2022 End: 08-04-2022 Postop follow up visit related to original px Dionna Corrigan [employer] Work Phone: [facility] Comment on above: Failed back syndrome , lumbosacral (Primary Dx); Spinal cord stimulator status Start: 08-02-2022 End: 08-02-2022 Clinical Support Delmy Goldman RN [facility] Comment on above: Failed back syndrome , lumbosacral (Primary Dx) Start: 08-01-2022 End: 08-01-2022 Subsequent hospital visit by physician Edgar Dhaliwal MD Work Phone: [facility] Start: 07-20-2022 End: 07-20-2022 ambulatory Clair Dahl Other [facility] Other Start: 07-20-2022 Office outpatient vi sit 15 minutes Clair Dahl [facility] Start: 06-28-2022 End: 06-28-2022 Office outpatient visit 15 minutes Edgar Dhaliwal MD Work Phone: [facility] Comment on above: Failed back syndrome , lumbosacral Start: 06-12-2022 End: 06-12-2022 ambulatory Clair Dahl Other [facility] Other Start: 06-12-2022 Telephone encounter Clair Dahl [facility] Start: 06-05-2022 End: 06-05-2022 Office outpatient visit 15 minutes Vijay Acuna MD Work Phone: [facility] Comment on above: Chronic systolic HF (heart failure) (HCC) (Primary Dx); Hyperlipidemia, unspecified hyperlipidemia type Start: 05-31-2022 End: 05-31-2022 Office outpatient visit 15 minutes Edgar Dhaliwal MD Work Phone: [facility] Comment on above: Scoliosis, unspecifi ed scoliosis type, unspecified spinal region (Primary Dx); Scoliosis of lumbar spine, unspecified scoliosis type Start: 05-09-2022 End: 05-10-[address] CLAIR DAHL Facility:[facility] Start: 04-20-2022 End: 04-20-2022 Postop follow up visit related to original px Erika Louis PA-C Work Phone: [facility] Comment on above: Status post lumbar d iscectomy (Primary Dx); Facet arthropathy Start: 04-17-2022 Refill Ivonne Almanza MA [facility] Comment on above: Medication Refill Start: 04-05-2022 End: 04-06-2022 ambulatory SARAH JEAN Facility:[facility] Start: 03-28-2022 End: 04-11-2022 ambulatory SARAH JEAN Facility:[facility] Start: 03-22-2022 End: 03-23-2022 ambulatory SARAH JEAN Facility:[facility] Start: 03-08-2022 End: 04-19-[address] DOCTOR COWAN Facility:[facility] Start: 03-07-2022 End: 03-07-2022 ambulatory Clair Dahl Other [facility] Other Start: 03-07-2022 Office outpatient vi sit 15 minutes Clair Dahl [facility] Start: 03-02-2022 End: 03-02-2022 Postop follow up visit related to original px Erika Louis PA-C Work Phone: [facility] Comment on above: Lumbar disc herniati on with radiculopathy (Primary Dx); Status post discectomy; Facet arthropathy Start: 02-01-2022 End: 02-01-2022 Clinical Support Delmy Goldman RN [facility] Comment on above: Status post lumbar d iscectomy (Primary Dx) Start: 01-25-2022 End: 01-25-2022 Postop follow up visit related to original px Erika Louis PA-C Work Phone: [facility] Comment on above: Lumbar disc herniati on with radiculopathy (Primary Dx); Status post lumbar discectomy Start: 01-20-2022 End: 01-20-2022 Clinical Support Delmy Goldman RN [facility] Comment on above: Lumbar disc herniati on with radiculopathy (Primary Dx) Start: 01-13-2022 End: 01-13-2022 Subsequent hospital visit by physician Edgar Dhaliwal MD Work Phone: [facility] Start: 01-03-2022 End: 01-03-[address] MEHDI RIVERA . Facility: Start: 01-02-2022 End: 01-02-2022 Clinical Support Audrey Cardozo RN [facility] Start: 12-29-2021 End: 12-29-2021 Phys/qhp telephone evaluation 11-20 min Ami Power [employer] Work Phone: [facility] Comment on above: HFrEF (heart failure with reduced ejection fraction) (HCC) (Primary Dx); Hypertension, unspecified type Start: 11-24-2021 End: 11-24-2021 Office outpatient visit 15 minutes Edgar Dhaliwal MD Work Phone: [facility] Comment on above: Lumbar disc herniati on with radiculopathy (Primary Dx) Start: 11-09-2021 End: 11-09-2021 Office outpatient visit 25 minutes Vijay Acuna MD Work Phone: [facility] Comment on above: Chronic systolic HF (heart failure) (HCC) (Primary Dx); Pre-operative cardiovascular examination; Hyperlipidemia, unspecified hyperlipidemia type Start: 11-09-2021 End: 11-09-2021 Patient encounter status Vijay Acuna MD Work Phone: [facility] Start: 09-29-2021 Chart abstracting Chely So MA [facility] Start: 09-29-2021 Documentation procedure Chely hernández MA [facility] Start: 09-15-2021 End: 09-15-2021 Office outpatient visit 25 minutes Vijay Acuna MD Work Phone: [facility] Comment on above: Chronic systolic HF (heart failure) (HCC) (Primary Dx); Pre-operative cardiovascular examination; Hyperlipidemia, unspecified hyperlipidemia type Start: 09-15-2021 End: 09-15-2021 Patient encounter status Vijay Acuna MD Work Phone: [facility] Start: 09-01-2021 Refill Julissa Stark MA [facility] Comment on above: Medication Refill Start: 08-31-2021 End: 08-31-2021 Phys/qhp telephone evaluation 11-20 min Ami Power [employer] Work Phone: [facility] Comment on above: HFrEF (heart failure with reduced ejection fraction) (HCC) (Primary Dx); Hypertension, unspecified type Start: 08-23-2021 [facility] Vijay Acuna MD Work Phone: [facility] Start: 08-09-2021 End: 08-09-2021 Phys/qhp telephone evaluation 11-20 min Ami Power [employer] Work Phone: [facility] Comment on above: HFrEF (heart failure with reduced ejection fraction) (HCC) (Primary Dx); Hypertension, unspecified type Start: 08-08-2021 Documentation procedure Parvizxan dra Marisa Huffman RN [facility] Start: 08-03-2021 End: 08-04-2021 ambulatory NIA [place] Facility: Start: 08-03-2021 End: 08-03-2021 Office outpatient visit 25 minutes Vijay Acuna MD Work Phone: [facility] Comment on above: Chronic systolic HF (heart failure) (HCC) (Primary Dx); Pre-operative cardiovascular examination; Abnormal stress test; 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 Start: 08-03-2021 End: 08-03-2021 Patient encounter status Vijay Acuna MD Work Phone: [facility] Start: 07-25-2021 End: 07-25-2021 Office outpatient visit 40 minutes Vijay Acuna MD Work Phone: [facility] Comment on above: Chronic systolic HF (heart failure) (HCC); Hypertension, unspecified type; HFrEF (heart failure with reduced ejection fraction) (HCC) Start: 07-06-2021 Orders Only Meir Huffman RN [facility] Comment on above: Chronic systolic HF (heart failure) (HCC) (Primary Dx) Start: 07-05-2021 End: 07-05-2021 Office outpatient new 45 minutes Daylin Ernandez CNP Work Phone: [facility] Comment on above: LBBB (left bundle br anch block) (Primary Dx); Pre-op testing; Chronic systolic HF (heart failure) (HCC) Start: 07-05-2021 End: 07-05-2021 Patient encounter status Daylin Ernandez CNP Work Phone: [facility] Start: 07-04-2021 Preprocedural examin ation done Meir Huffman RN [facility] Work Phone: Start: 07-04-2021 End: 07-04-2021 Clinical Support Delmy Goldman RN [facility] Comment on above: Lumbar disc herniati on with radiculopathy (Primary Dx) Start: 06-06-2021 Coordination of care plan Delmy isabel RN [facility] Start: 05-25-2021 End: 05-25-2021 ambulatory Kareem Lagunas Other [facility] Other Start: 05-25-2021 Telephone encounter Kareem Lagunas [facility] Start: 05-23-2021 End: 05-23-2021 Office outpatient visit 15 minutes Edgar Dhaliwal MD Work Phone: [facility] Comment on above: Lumbar disc herniati on with radiculopathy; Tobacco abuse Start: 04-28-2021 (Procedure) [place] Kareem Lagunas [facility] Start: 04-28-2021 End: 04-28-2021 ambulatory Kareem Lagunas Other [facility] Other Start: 04-20-2021 End: 04-20-2021 ambulatory Kareem Lagunas Other [employer] [facility] Other Start: 04-20-2021 Office outpatient vi sit 25 minutes Kareem Lagunas [facility] Start: 04-12-2021 (Procedure) [place] Kareem Lagunas [facility] Start: 04-12-2021 End: 04-12-2021 ambulatory Kareem Lagunas Other [employer] [facility] Other Start: 03-07-2021 End: 03-07-2021 Office outpatient new 30 minutes Edgar Dhaliwal MD Work Phone: [facility] Comment on above: Lumbar facet arthrop athy (Primary Dx); Lumbar radiculopathy; Lumbar degenerative disc disease; Scoliosis, unspecified scoliosis type, unspecified spinal region Start: 02-17-2021 Transcribe Orders Edgar Dhaliwal MD Work Phone: [facility] Comment on above: Lumbar radiculopathy (Primary Dx) Procedures Date Procedure Procedure Detail Performing Clinician Start: 05-08-2024 Urine culture Clair yates MD Work Phone: Start: 07-03-2023 Plain X-ray of right shoulder MD Clair Dahl Work Phone: Start: 08-24-2022 Radex spine 1 view s pecify level Edgar Dhaliwal MD Work Phone: Start: 08-24-2022 End: 08-24-2022 INSERTION SPINAL CORD STIMULATOR PERMANENT Edgar Dhaliwal MD Work Phone: Start: 08-24-2022 Blood typing serologic abo Edgar Dhaliwal MD Work Phone: Start: 08-01-2022 Radex spine thoracic 2 views Edgar Dhaliwal MD Work Phone: Start: 01-13-2022 Radex spine lumbosac ral 2/3 views Edgar Dhaliwal MD Work Phone: Start: 01-13-2022 Blood typing serologic abo Edgar Dhaliwal MD Work Phone: Plan of Treatment Date Care Activity Detail Author Start: 09-01-2024 End: 09-01-2024 Patient encounter procedure 09/01/2024 11:20 AM EDT Office Visit [facility] [address] [place] [phone] Vijay Acuna MD [address] [place] [id number] [facility] Start: 05-08-2024 Bacteria identified in Urine by Culture Urine Culture [facility] Start: 05-08-2024 Urine culture [facility] Start: 2024 Respiratory Syncytial Virus Immunization: Risk, 60-74 Risk, or 75+ (1 - Risk 60-74 years 1-dose series) Respiratory Syncytial Virus Immunization: Risk, 60-74 Risk, or 75+ (1 - Risk 60-74 years 1-dose series) [facility] Start: 12-20-2023 End: 12-20-2023 Patient encounter procedure 12/20/2023 10:30 AM EDT Office Visit [facility] [address] [facility] [address] [place] [address] Giovani Maria DPM [address] [facility] 5 [place] [address] Plantar fasciitis (Primary Dx); Contracture of left ankle [facility] Comment on above: Plantar fasciitis (Primary Dx); Contracture of left ankle Start: 12-13-2023 End: 12-13-2023 Patient encounter procedure 12/13/2023 11:00 AM EDT Office Visit [facility] [address] [facility] [address] [place] [address] Giovani Maria, DPM [address] [address] [facility] Start: 11-22-2023 End: 11-22-2023 Clinical Support 11/22/2023 11:40 AM EDT Clinical Support [facility] [address] [facility] [address] [place] [address] Giovani Maria, DPM [address] [address] Plantar fasciitis (Primary Dx); Contracture of left ankle [facility] Comment on above: Plantar fasciitis (Primary Dx); Contracture of left ankle Start: 11-08-2023 End: 11-08-2023 Clinical Support [facility] Comment on above: Plantar fasciitis (Primary Dx); Contracture of left ankle Start: 11-04-2023 COVID-19 Vaccine ( season) COVID-19 Vaccine ( season) [facility] Start: 11-04-2023 Influenza vaccination [facility] Start: 10-25-2023 End: 10-25-2023 Clinical Support 10/25/2023 10:50 AM EDT Clinical Support [facility] [address] [facility] [address] [place] [address] Giovani Maria, DPM [address] [address] Plantar fasciitis (Primary Dx); Contracture of left ankle [facility] Comment on above: Plantar fasciitis (Primary Dx); Contracture of left ankle Start: 07-17-2023 End: 07-17-2023 Patient encounter procedure 07/17/2023 1:00 PM EDT Appointment [facility] [address] [address] Vijay Acuna MD [address] [facility] [place] [address] [facility] Start: 07-03-2023 Plain X-ray of right shoulder XR shoulder RT min 2V* [facility] Start: 07-03-2023 XR Shoulder - right Views [facility] Start: 06-22-2023 Patient referral [facility] Work Phone: Start: 06-19-2023 End: 06-19-2023 Patient encounter procedure 06/19/2023 2:00 PM EDT Office Visit [facility] [address] [place] [address] Vijay Acuna MD [address] [place] [address] [facility] Start: 03-06-2023 End: 03-06-2023 Patient encounter procedure 03/06/2023 11:00 AM EST Appointment [facility] [address] [place] [address] Caroline Carrion PA-C [address] [address] [facility] Start: 02-06-2023 End: 02-06-2023 Patient encounter procedure 02/06/2023 2:30 PM EST Procedure visit [facility] [address] [facility] Medical Office Building, [address]nd [place] [phone] Caroline Carrion PA-C [address] [facility] [address] [address] Vikram Fowler MD 335 [address] [facility] [address] [place] [address] [facility] Start: 01-11-2023 End: 01-11-2023 Patient encounter procedure 01/11/2023 7:00 PM EST Appointment [facility] [address] [place] [phone] Caroline Carrion PA-C [address] [facility] [address] [place] [address] [facility] Start: 12-12-2022 End: 12-12-2022 Follow-up encounter 12/12/2022 2:00 PM EDT Follow-Up [facility] [address] [facility] [place] [phone] Caroline Carrion PA-C [address] [facility] [address] [place], [place] [phone] [facility] Start: 11-08-2022 End: 11-08-2022 Patient encounter procedure 11/08/2022 1:00 PM EDT Office Visit [facility] [address] [facility] [place] [phone] Caroline Carrion PA-C [address] [facility] [address] [place] [address] [facility] Start: 11-03-2022 End: 11-03-2022 Telemedicine consultation with patient 11/03/2022 3:30 PM EDT Telemedicine Telephone [facility] [address] [facility] [place] [address] Caroline Carrion PA-C [address] [facility] [address] [place] [address] [facility] Start: 11-03-2022 COVID-19 Vaccine ( season) COVID-19 Vaccine () [facility] Start: 11-03-2022 Influenza vaccination [facility] Start: 11-01-2022 End: 11-01-2022 Follow-up encounter 11/01/2022 1:30 PM EDT Follow-Up [facility] [address] [facility] [place] [address] Caroline Carrion PA-C [facility] [address] [address] [facility] Start: 10-06-2022 End: 10-06-2022 Follow-up encounter 10/06/2022 1:00 PM EDT Follow-Up [facility] [address] [facility] [place] [address] Dionna Corrigan, [employer]CH[employer] [address] [address] [facility] Start: 09-08-2022 End: 09-08-2022 Follow-up encounter 09/08/2022 10:00 AM EDT Follow-Up [facility] [address] [facility] [place] [address] Dionna Corrigan, [employer]CH[employer]IC [address] [facility] [address] [address] [facility] Start: 09-01-2022 End: 09-01-2022 Clinical Support 09/01/2022 11:30 AM EDT Clinical Support [facility] [address] [facility] [place] [address] [facility] Start: 08-04-2022 End: 08-04-2022 Follow-up encounter 08/04/2022 12:00 PM EDT Follow-Up [facility] [address] [facility] [place] [address] Dionna Corrigan, SUSANNE [address] M[facility] [address] [place] [address] [facility] Start: 08-02-2022 End: 08-02-2022 Clinical Support 08/02/2022 2:30 PM EDT Clinical Support [facility] [address] [facility] [place] [address] [facility] Start: 08-01-2022 End: 08-01-2022 INSERTION SPINAL CORD STIMULATOR TEMPORARY INSERTION SPINAL CORD STIMULATOR TEMPORARY Failed back syndrome, lumbosacral 08/01/2022 8:49 AM EDT [facility] Start: 06-09-2022 End: 06-09-2022 Patient encounter procedure 06/09/2022 3:00 PM EDT Office Visit [facility] [address] [place] [address] Edgar Dhaliwal MD [address] [place] [address] [facility] Start: 06-05-2022 End: 06-05-2022 Patient encounter procedure [facility] Start: 04-20-2022 End: 04-20-2022 Patient encounter procedure 04/20/2022 Office Visit Neurosurgery Erika Louis PA-C [address] [place] [address] [facility] Start: 02-09-2022 End: 02-09-2022 Follow-up encounter 02/09/2022 Follow-Up Neurosurgery Erika Louis PA-C [address] [place] [address] [facility] Start: 02-01-2022 End: 02-01-2022 Admission to same day surgery center 02/01/2022 Clinical Support Neurosurgery [facility] Start: 01-25-2022 End: 01-25-2022 Follow-up encounter 01/25/2022 Follow-Up Neurosurgery Erika Louis PA-C [address] [place] [address] [facility] Start: 01-13-2022 End: 01-13-2022 Admission to same day surgery center 01/13/2022 Surgery Edgar Dhaliwal MD [address] [place] [address] Right L2-3 Minimally Invasive Hemilaminectomy, Foraminotomy, and Discectomy [facility] Comment on above: Right L2-3 Minimally Invasive Hemilamine ctomy, Foraminotomy, and Discectomy Start: 01-13-2022 End: 01-13-2022 LAMINECTOMY DECOMPRESSION LUMBAR MINIMALLY INVASIVE SINGLE LEVEL [facility] Main OR Start: 01-13-2022 Subsequent hospital visit by physician 01/13/2022 Hospital Encounter Edgar Dhaliwal MD [address] [place] [address] [facility] Start: 01-03-2022 End: 01-03-2022 Patient encounter procedure 01/03/2022 Office Visit Cardiology Vijay Acuna MD [address] [place] [address] [facility] Start: 01-02-2022 End: 01-02-2022 Admission to same day surgery center 01/02/2022 Clinical Support Neurosurgery [facility] Start: 01-02-2022 End: 01-02-2022 Patient encounter procedure 01/02/2022 Office Visit Pre-Admission Testing Edgar Dhaliwal MD [address] [place] [address] [facility] Preadmission Testing Start: 12-29-2021 End: 12-29-2021 Telemedicine consultation with patient 12/29/2021 Telemedicine Telephone Cardiology Ami Power CNS [address] [place] [address] [facility] Start: 11-14-2021 End: 11-14-2021 Patient encounter procedure 11/14/2021 Office Visit Neurosurgery Edgar Dhaliwal MD [address] [address] [facility] Start: 11-09-2021 End: 11-09-2021 Patient encounter procedure 11/09/2021 Office Visit Cardiology Vijay Acuna MD [address] [place] [address] [facility] Start: 11-03-2021 Influenza vaccination [facility] Start: 11-03-2021 End: 11-03-2021 Telemedicine consultation with patient 11/03/2021 Telemedicine Telephone Cardiology Ami Power CNS [address] [place] [address] [facility] Start: 10-25-2021 End: 10-25-2021 Patient encounter procedure 10/25/2021 Appointment Cardiology Vijay Acuna MD [address] [place] [address] [facility] Start: 10-16-2021 End: 09-15-2022 Echocardiography Echocardiogram complete Echocardiography Routine Chronic systolic HF (heart failure) ([facility]) Expected: 10/16/2021, Expires: 09/15/2022 [facility] Work Phone: Comment on above: Expected: 10/16/2021, Expires: Start: 10-11-2021 End: 10-11-2021 Patient encounter procedure 10/11/2021 Office Visit Neurosurgery Edgar Dhaliwal MD [address] [address] [facility] Start: 09-15-2021 End: 09-15-2021 Patient encounter procedure 09/15/2021 Office Visit Cardiology Vijay Acuna MD [address] [place] [address] [facility] Start: 08-31-2021 End: 08-31-2021 Telemedicine consultation with patient 08/31/2021 Telemedicine Telephone Cardiology Ami Powre CNS [address] [facility] [place] [address] [facility] Start: 08-23-2021 End: 08-23-2021 Admission to same day surgery center 08/23/2021 Surgery Cardiology Rios Verduzco MD [address] [place] [address] Left Heart Cath Possbile PTCA/Stent [facility] Comment on above: Left Heart Cath Possbile PTCA/Stent Start: 08-23-2021 Subsequent hospital visit by physician 08/23/2021 Hospital Encounter Cardiology Rios Verduzco MD [address] [place] [address] [facility] Procedural Care Unit Start: 08-09-2021 End: 08-09-2021 Telemedicine consultation with patient 08/09/2021 Telemedicine Telephone Cardiology Ami Power [employer] [address] [place] [address] [facility] Start: 08-03-2021 End: 08-03-2021 Patient encounter procedure 08/03/2021 Office Visit Cardiology Vijay Acuna MD [address] [place] [address] [facility] Start: 07-25-2021 End: 07-25-2021 Patient encounter procedure 07/25/2021 Office Visit Cardiology Vijay Acuna MD [address] [place] [address] Ami Power CNS [address] [place] [address] [facility] Start: 07-21-2021 End: 07-21-2021 Patient encounter procedure 07/21/2021 Appointment Cardiology Vijay Acuna MD [address] [place] [address] [facility] Start: 07-12-2021 End: 07-12-2021 Admission to same day surgery center 07/12/2021 Surgery Edgar Dhaliwal MD [address] [place] [address] Right L2-L3 MIS Hemilaminectomy, Foraminotomy, and Discectomy [facility] Comment on above: Right L2-L3 MIS Hemilaminectomy, Foramin otomy, and Discectomy Start: 07-12-2021 End: 07-12-2021 LAMINECTOMY DISCECTOMY MINIMALLY INVASIVE SINGLE LEVEL LAMINECTOMY DISCECTOMY MINIMALLY INVASIVE SINGLE LEVEL Lumbar disc herniation with radiculopathy 07/12/2021 6:50 AM EDT [facility] Main OR Start: 07-12-2021 Subsequent hospital visit by physician 07/12/2021 Hospital Encounter Edgar Dhaliwal MD [address] [place] [address] [facility] Start: 07-11-2021 End: 07-11-2021 Admission to same day surgery center 07/11/2021 Surgery Edgar Dhaliwal MD [address] [address] Right L2-L3 MIS Hemilaminectomy, Foraminotomy, and Discectomy [facility] Comment on above: Right L2-L3 MIS Hemilaminectomy, Foramin otomy, and Discectomy Start: 07-11-2021 End: 07-11-2021 LAMINECTOMY DISCECTOMY MINIMALLY INVASIVE SINGLE LEVEL LAMINECTOMY DISCECTOMY MINIMALLY INVASIVE SINGLE LEVEL Lumbar disc herniation with radiculopathy 07/11/2021 9:50 AM EDT [facility] Main OR Start: 07-11-2021 Subsequent hospital visit by physician 07/11/2021 Hospital Encounter Edgar Dhaliwal MD [address] [facility] [address] [address] [facility] Start: 07-08-2021 End: 07-08-2021 Anesthesia consultation 07/08/2021 Anesthesia Event Alonso Cespedes MD [address] [place] [address] [facility] Start: 07-05-2021 End: 07-05-2021 Patient encounter procedure 07/05/2021 Office Visit Cardiology Daylin Ernandez, [employer] [address] [place] [address] Vijay Acuna MD [address] [place] [address] [facility] Start: 07-04-2021 End: 07-04-2021 Patient encounter procedure 07/04/2021 Office Visit Pre-Admission Testing [facility] Preadmission Testing Start: 07-04-2021 End: 07-04-2021 Admission to same day surgery center 07/04/2021 Clinical Support Neurosurgery [facility] Start: 06-12-2021 COVID-19 Vaccine (4 - Booster for Moderna series) COVID-19 Vaccine (4 - Booster for Moderna series) [facility] Start: 04-08-2021 COVID-19 Vaccine (4 - Booster for Moderna series) COVID-19 Vaccine (4 - Booster for Moderna series) [facility] Start: 04-08-2021 COVID-19 Vaccine (4 - Moderna series) COVID-19 Vaccine (4 - Moderna series) [facility] Start: 11-03-2020 Influenza vaccination Sequential Influenza Vaccine (#1) [facility] Start: 02-18-2014 Administration of herpes zoster vaccine Zoster Vaccines (1 of 2) [facility] Start: 02-18-2014 Screening for malignant neoplasm of colon [facility] Start: 2004 Screening for malignant neoplasm of breast Mammogram [facility] Start: 02-18-1994 Screening for malignant neoplasm of cervix [facility] Start: 02-18-1985 Screening for malignant neoplasm of cervix Pap Smear [facility] Start: 02-18-1983 Pneumococcal Vaccine: Age 50+ (1 of 2 - PCV) Pneumococcal Vaccine: Age 50+ (1 of 2 - PCV) [facility] Start: 02-18-1983 Pneumococcal Vaccine: Ped or At-Risk (1 of 2 - PCV) Pneumococcal Vaccine: Ped or At-Risk (1 of 2 - PCV) [facility] Start: 02-18-1982 Hepatitis C screening Hepatitis C Screening [facility] Start: 02-18-1979 HIV screening HIV Screening [facility] Start: 1976 Depression screening using PHQ-9 (Patient Health Questionnaire 9) score [facility] Start: 02-18-1970 Pneumococcal Vaccine: Ped or At-Risk (1 - PCV) Pneumococcal Vaccine: Ped or At-Risk (1 - PCV) [facility] Start: 02-18-1970 Pneumococcal Vaccine: Ped or At-Risk (1 of 2 - PCV) Pneumococcal Vaccine: Ped or At-Risk (1 of 2 - PCV) [facility] Start: 02-18-1970 Pneumococcal Vaccine: Ped or At-Risk (1 of 2 - PPSV23) Pneumococcal Vaccine: Ped or At-Risk (1 of 2 - PPSV23) [facility] Start: 02-18-1967 History and physical examination, annual for health maintenance Wellness Visit [facility] Start: 02-18-1967 Medicare Wellness Visit Medicare Wellness Visit [facility] Start: 1964 Screening for malignant neoplasm of cervix Pap Smear [facility] Start: 1964 Screening for malignant neoplasm of colon [facility] Start: 1964 Tetanus vaccination Tetanus: Every 10yrs [facility] Comprehensive metabo lic 2000 panel - Serum or Plasma [facility] End: 08-18-2024 Echocardiography Echocardiogram complete Echocardiography Routine DE OLIVEIRA (dyspnea on exertion) Chest pressure 1 Occurrences starting 06/19/2023 until 08/18/2024 [employer] Work Phone: Comment on above: 1 Occurrences starting 06/19/2023 until 08/18/2024 LAMINECTOMY DISCECTO MY MINIMALLY INVASIVE SINGLE LEVEL LAMINECTOMY DISCECTOMY MINIMALLY INVASIVE SINGLE LEVEL Lumbar disc herniation with radiculopathy [facility] Main OR LEFT HEART CATH POSS IBLE PTCA/STENT LEFT HEART CATH POSSIBLE PTCA/STENT Chronic systolic HF, Abnormal SPECT [facility] End: 01-30-2024 MR Brain WO contrast MR Brain Without Contrast Imaging Routine Ellison sign present 1 Occurrences starting 01/29/2023 until 01/30/2024 [employer] Work Phone: Comment on above: 1 Occurrences starting 01/29/2023 until 01/30/2024 End: 12-14-2023 MRI of cervical spine without contrast MR Cervical Spine Without Contrast Imaging Routine Ellison sign present Numbness and tingling in left arm 1 Occurrences starting 12/13/2022 until 12/14/2023 [employer] Work Phone: Comment on above: 1 Occurrences starting 12/13/2022 until 12/14/2023 End: 03-08-2022 MRI of lumbar spine without contrast MR Lumbar Spine Without Contrast Imaging Routine Lumbar radiculopathy Lumbar facet arthropathy Lumbar degenerative disc disease Scoliosis, unspecified scoliosis type, unspecified spinal region 1 Occurrences starting 03/08/2021 until 03/08/2022 [employer] Work Phone: Comment on above: 1 Occurrences starting 03/08/2021 until 03/08/2022 End: 04-20-2023 MRI of lumbar spine without contrast MR Lumbar Spine Without Contrast Imaging Routine Status post lumbar discectomy 1 Occurrences starting 04/20/2022 until 04/20/2023 [employer] Work Phone: Comment on above: 1 Occurrences starting 04/20/2022 until 04/20/[address] [facility] Work Phone: Procedure on tissue specimen [facility] Work Phone: Comment on above: Release Upon Ordering for 1 Occurrences starting 01/13/2022, 1 completed End: 07-06-2022 Radionuclide myocardial perfusion study NM Myocardial Perfusion Multiple SPECT Imaging Routine Chronic systolic HF (heart failure) (HCC) 1 Occurrences starting 07/06/2021 until 07/06/2022 [employer] Work Phone: Comment on above: 1 Occurrences starting 07/06/2021 until 07/06/2022 End: 11-09-2022 Thyrotropin [Units/volume] in Serum or Plasma TSH with Reflex Free T4 Lab Routine Chronic systolic HF (heart failure) (HCC) 1 Occurrences starting 11/09/2021 until 11/09/2022 [employer] Work Phone: Comment on above: 1 Occurrences starting 11/09/2021 until 11/09/2022 XR OR T-Spine 2 Views XR OR T-Sp ine 2 Views Imaging Routine 08/01/2022 9:45 AM EDT [facility] Work Phone: [facility] Payers Date Payer Category Payer Medicare HMO MMO MANAGED [facility] HMO [id number] 2024 Unknown [id number] 2023 Medicaid [employer] MEDICARE A DVANTAGE [id number] 2023 Medicare AETNA MEDICARE A DVANTAGE AETNA MEDICARE REPLACEMENT [id number] 2023-Present [address] [place] [address] [id number] 2023 Medicare [id number] 2023 Self-pay [id number] 2023 Unknown [id number] 2009 Unknown [id number] [id number]. [id number] 1964 Unknown [id number] 2.16840.1.051658.3.579.2.593 1964 Unknown [id number] 2.16.840.1.321520.3.579.2.593 1964 Unknown [id number] 2.16.840.1.812077.3.579.2.593 1964 Unknown [id number] 2.16.840.1.046324.3.579.2.593 1964 Unknown [id number] 2.16.840.1.745625.3.579.2.593 1964 Unknown [id number] 2.16.840.1.123819.3.579.2.593 1964 Unknown [id number] 2.16.840.1.883480.3.579.2.593 1964 Unknown [id number] 2.16.840.1.295388.3.579.2.1259 1964 Unknown [id number] 2.16.840.1.698418.3.579.2.1259 1964 Unknown [id number] 2.16.840.1.768274.3.579.2.1259 1964 Unknown [id number] 2.16.840.1.944910.3.579.2.1259 1964 Unknown [id number] 2.16.840.1.937823.3.579.2.1259 1964 Unknown [id number] 2.16.840.1.347238.3.579.2.903 1964 Unknown [id number] 2.16.840.1.779449.3.579.2.903 1964 Unknown [id number] 2.16.840.1.389202.3.579.2.903 1964 Unknown [id number] 2.16.840.1.793133.3.579.2.903 1964 Unknown [id number] 2.16.840.1.316715.3.579.2.903 1964 Unknown [id number] 2.16.840.1.274554.3.579.2.903 1959 Unknown [id number] 2.16. 840.1.621053.19 1959 Unknown [id number] 2.16.8 40.1.493143.19 Unknown [id number] 020 Unknown [id number] 2.16.840.1.715981.3.579.2.531 Unknown [id number] 2.16.840.1.146570.3.579.2.531 Social History Date Type Detail Facility Start: 10-11-2023 Tobacco smoking status NHIS Tobacco smoking consumption unknown [facility] Start: 1965 Sex Assigned At Not on file [facility] Start: 03-07-2021 End: 11-09-2021 Tobacco smoking status NHIS Smokes tobacco daily [facility] Start: 03-07-2021 End: 06-19-2023 Cigarettes smoked current (pack per day) - Reported 0.5 [facility] Start: 03-07-2021 End: 08-04-2022 Tobacco use and exposure Smokeless tobacco non-user [facility] Start: 03-08-2021 End: 06-19-2023 Alcohol intake Ex-drinker (finding) [facility] Start: 05-13-2021 End: 08-02-2022 Exposure to SARS-CoV-2 (event) Not sure [facility] Start: 07-05-2021 End: 07-25-2021 Tobacco Comment smokes 1-2 cigarettes daily [facility] History of tobacco use Cigarette Smoker [facility] Start: 04-23-2022 End: 06-19-2023 Sex Assigned At [facility] Other Start: 01-25-2022 End: 08-04-2022 Tobacco smoking status NHIS Occasional tobacco smoker [facility] Start: 08-04-2022 Tobacco Comment smokes 1-2 cigarettes once in a while during stressful times. [facility] Start: 02-24-2021 Tobacco smoking status NHIS Smoker (finding) [facility] Start: 1965 Sex Assigned At Female [facility] Start: 11-08-2023 End: 11-22-2023 Alcoholic beverage intake [facility] Start: 05-08-2024 End: 05-23-2024 Sex Female (finding) [facility] Medical Equipment Procedure Code Equipment Code Equipment Origin al Text Equipment Identifier Dates Hemostat 8 X 12. 5cm X 10mm Surgifoam Gelatin Sponge - Sna [id number], [id number] FDA Start: 01-13-2022 Lead 60cm Perc O ctrode Trial - [id number] Start: 08-01-2022 Lead 60cm [facility] [id number]_[facility] Start: 08-24-2022 Comment on above: Description: MRI system type 1.5T cylind rical-bore magnet, horizontal field orientation WARNING: Only use 1.5T cylindrical-bore magnet, horizontal field orientation MRI systems. Other MRI systems, such as 1.0T and 3.0T machines or vertical field orientation machines, have not been tested and could cause device damage and excessive heating of implanted components, which could result in serious patient injury. Gradient slew rate Maximum gradient slew rate of <=200 T/m/s per axis WARNING: Do not use gradient slew rates greater than 200 T/m/s because they have not been tested and could increase the risk of induced stimulation or heating of the neurostimulator. Spatial field gradient Maximum spatial field gradient of 30 T/m (3000 G/cm) Patient position Supine, patient's arms must be at his or her sides WARNING: Any prone patient positions or superman positions (where the patient's arm is raised above his or her head) are excluded and have not been tested. Total active scan time (RF on-time) 30 minutes total of active scan time per session 30minute wait between sessions WARNING: Exceeding the active scan time limit increases the risk of excessive heating, which could result in serious patient injury. NOTE: During the MRI scan, visually and audibly monitor the patient, including verbal communication. Instruct the patient to notify MR personnel immediately if any discomfort, pain, heating, stimulation, or vibration is experienced. Lead tip at T8 Sealant 10ml Hemostatic Matrix Fast Prep Floseal - Sna ()[id number])[id number] [id number], [id number]_[facility] FDA Start: 01-13-2022 Hemostat 4 X 8in Surgicel - Sna ()[id number])[id number], [id number]_[facility] FDA Start: 01-13-2022 Hemostat 2 X 4in Surgicel Fibrillar - Sna ()[id number])[id number], [id number]_[facility] FDA Start: 01-13-2022 Kit 8ml Matrix Hemostatic W/Thrombin Surgiflo - Sn/A [id number]_[facility] Start: 08-24-2022 Generator Neurostimulator Implantable Xr5 Proclaim - [id number]_[facility] Start: 08-24-2022 Comment on above: Description: MRI system type 1.5T cylind rical-bore magnet, horizontal field orientation WARNING: Only use 1.5T cylindrical-bore magnet, horizontal field orientation MRI systems. Other MRI systems, such as 1.0T and 3.0T machines or vertical field orientation machines, have not been tested and could cause device damage and excessive heating of implanted components, which could result in serious patient injury. Gradient slew rate Maximum gradient slew rate of <=200 T/m/s per axis WARNING: Do not use gradient slew rates greater than 200 T/m/s because they have not been tested and could increase the risk of induced stimulation or heating of the neurostimulator. Spatial field gradient Maximum spatial field gradient of 30 T/m (3000 G/cm) Patient position Supine, patient's arms must be at his or her sides WARNING: Any prone patient positions or superman positions (where the patient's arm is raised above his or her head) are excluded and have not been tested. Total active scan time (RF on-time) 30 minutes total of active scan time per session 30minute wait between sessions WARNING: Exceeding the active scan time limit increases the risk of excessive heating, which could result in serious patient injury. NOTE: During the MRI scan, visually and audibly monitor the patient, including verbal communication. Instruct the patient to notify MR personnel immediately if any discomfort, pain, heating, stimulation, or vibration is experienced. Hemostat 2 X 4in Surgicel Fibrillar - Sn/A ()[id number])N/A, [id number] FDA Start: 08-24-2022 Hemostat 4 X 8in Surgicel - Sn/A ()[id number])N/A, [id number] FDA Start: 08-24-2022 Hemostat 8 X 12. 5cm X 10mm Surgifoam Gelatin Sponge - Sn/A [id number] Start: 06-22-2023 Lead 60cm Perc O ctrode Trial - [id number] Start: 08-01-2022 Clinical Notes 12-02-2014 to 05-08-2024 Note Date & Type Note Facility 05-08-2024 Evaluation note Diagnosis Onset Date Resolution Dysuria acute May 08 1:32pm [facility] Work Phone: 1(705) 477-739503-06-2025 Evaluation note* Diagnosis Onset Date Resolution Status Admit Date Dysuria acute May 08 1:32pm Chronic systolic heart failure acute May 23, 2024 11:25am Hematuria acute May 23, 20 25 11:25am HTN (hypertension) acute May 23, 2024 11:25am Weight gain acute May 23, 025 11:25am [facility] Work Phone: 1(789) 731-655802-12-2025 Telephone encounter Note* Telephone Encounter - Tamie Enrique MA - 04/16/2024 1:00 PM EST Last ov 06/19/23 recall 6 mo. Message sent to scheduling to schedule recall [facility] Work Phone: 1(700) 504-212902-12-2025 Miscellaneous Notes* Telephone Encounter - Tamie Enrique MA - 04/16/2024 1:00 PM EST Last ov 06/19/23 recall 6 mo. Message sent to scheduling to schedule recall documented in this [id number] NotePatient seen today with Bryanna Moya. Patient's spinal cord stimulator was interrogated and found to be covering her back and both lower extremities. At this time sales representative cash registers adjusted patient's stimulator settings and we will utilize these new settings for the next 7 days to see if her pain improves. The patient is to call our office if she does not see improvement in pain or pain or symptoms should worsen. Call with any questions. AUTHENTICATED BY CAROLINE CARRION ON 03/14/2024 16:52:05[facility] Amb[facility] 03-14-2024 History of Present illness Narrative* Caroline Carrion PA-C - 03/14/2024 4:49 PM EST Patient seen today with Bryanna sales representative cash registers Erika. Patient's spinal cord stimulator was interrogated and found to be covering her back and both lower extremities. At this time sales representative cash registers adjusted patient's stimulator settings and we will utilize these new settings for the next 7 days to see if her pain improves. The patient is to call our office if she does not see improvement in pain or pain or symptoms should worsen. Call with any questions. documented in this [id number] NotePatient called 03/11/24 and I relayed to her over the phone that her 03/07/24 thoracolumbar x-ray reveals no acute fracture or lead discontinuity. However I do note that her paddle is over T7 vertebra and on op report 08/24/2022 lead was placed so that the superior aspect of the lead was at the superior T8 vertebral body level spanning T8 to the T9 vertebral body level. I reached out to Dayana with [employer], who states he will relay this information to Erika neuromodulator sales representative cash registers, and we will get the patient scheduled for spinal cord stimulator interrogation and if needed reprogramming to see if we can capture her pain. Asked patient to notify me if she does not hear from sales representative cash registers by the end of the week. AUTHENTICATED BY CAROLINE CARRION, ON 03/12/2024 16:17:51[facility] Amb[facility] 03-12-2024 History of Present illness Narrative* Caroline Carrion PA-C - 03/12/2024 4:12 PM EST Patient called 03/11/24 and I relayed to her over the phone that her 03/07/24 thoracolumbar x-ray reveals no acute fracture or lead discontinuity. However I do note that her paddle is over T7 vertebra and on op report 08/24/2022 lead was placed so that the superior aspect of the lead was at the superiorT8 vertebral body level spanning T8 to the T9 vertebral body level. I reached out to Dayana with [employer], who states he will relay this information to Erika, neuromodulator sales representative cash registers, and we will get the patient scheduled for spinal cord stimulator interrogation and if needed reprogramming to see if we can capture her pain. Asked patient to notify me if she does not hear from sales representative cash registers by the end of the week. 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 Hx of CTS which is now asymptomatic. Clinically stable with no infectious symptoms, no myelopathy, no QUAN symptoms. Will complete thoracolumbar XR today to evaluate neuro stimulator for lead migration. Will send in one time course of [place] for pain control, side effects discussed. Utilize tizanidine, lidocaine patch OTC, heat. Recommend trial SI belt, and SI exercises hand out given. Differential includes lead migration, sacroiliitis, lumbar spondylosis. I will call Sunday with Xray results and to see how she is doing, and she was instructed to report to the emergency department with any concerns including not limited to intractable pain, fall/injury, weakness, incontinence. Caroline Carrion PA-C [facility] Subjective: Patient presents for pain that started several days before [place] without cause over her low back. She states low back began dull aching pain. day while playing cards with family at the table she had sudden shooting pain over right lumbosacral and right gluteal region. Pain made it difficult to stand up. She rated this pain 8-9/10 intensity. She also began having a tingling-pinching type pain over her IPG site, and found no difference or control of pain with stimulator on or off. She had left over tizanidine and [place] she took which helped control the pain. She has enough tizanidine but request refill of [place]. She states currently she has aching dull pain over right lumbosacral and gluteal region 6/10 in intensity. No lower extremity pain, numbness, paraesthesias, weakness, incontinence, fall or injury. No infectious symptoms. Pain improved with laying on left side and reclining in her recliner, and is worsened with sitting up straight, sitting prolonged periods. She denies dysthesia's elsewhere. No QUAN symptoms, no incontinence, no saddle anesthesia. Her upper extremity numbness/pain has resolved. Objective: General: Healthy, well-appearing 59 y.o. female, in mild distress, she uses cane and walks around room as sitting too long is painful for her. nontoxic appearing. HENT: NCAT Nares patent with minimal clear drainage, hearing grossly intact Eyes: PERRLA, 5mm bilaterally Neuro: Awake, alert, and oriented x 3; face symmetric, speech fluent Neck: Supple, full lateral rotation. No tenderness step off or crepitus. Chest: Chest rise symmetric, respirations non-labored; Cardiac: No calf swelling or tenderness Abdomen: soft, non-tender, non-distended Back: IPG site CDI no rash swelling or tenderness. No midline tenderness. No crepitus, step off, heat, rash, or swelling. Tenderness over right lumbosacral region, with notable point tenderness over right SI joint. Skin: Warm and dry MSK: Moves upper extremities without deficit. Manual Muscle Testing Muscle Group Right Left Hip Flexion 5 5 Knee Extension 5 5 Knee Flexion 5 5 Dorsiflexion 5 5 Plantar Flexion 5 5 EHL 5 5 Normal sensation Negative Straight Leg Raise MANUEL on right causes lumbosacral midline back pain. Negative on left. AUTHENTICATED BY CAROLINE CARRION, ON 03/08/2024 00:10:03[facility] Ambulatory 12-20-2023 History of Present illness Narrative* Giovani Maria, SUDHIR - 12/20/2023 10:30 AM EDT Patient: Verito Brennan : 1965 PCP: Clair Dahl MD SUBJECTIVE Pt presents today for follow up of Left HSS. Pt has had previous treatment of 3rd steroid injection, nsaids, stretching with some relief in the past. Pt states current pain on a 1-10 scale is a 3 Pt presents today for follow up tx. Allergies: Not on File Past Medical History: No past medical history on file. Medications: No current outpatient medications on file. Social History: Social History Socioeconomic History Marital status: Spouse name: Not on file Number of children: Not on file Years of education: Not on file Highest education level: Not on file Occupational History Not on file Tobacco Use Smoking status: Unknown Smokeless tobacco: Not on file Substance and Sexual Activity Alcohol use: Defer Drug use: Defer Sexual activity: Not on file Other Topics Concern Not on file Social History Narrative Not on file Social Drivers of Health Financial Resource Strain: Not on file Food Insecurity: Not on file Transportation Needs: Not on file Physical Activity: Not on file Stress: Not on file Social Connections: Not on file Intimate Partner Violence: Not on file Housing Stability: Not on file ROS: General: denies fever, chills, fatigue, malaise GI: denies abdominal pain or ulcerations with anti-inflammatory medication OBJECTIVE LE EXAM: DERM: Positive hair growth to b/l feet with good skin turgor noted. Negative openings in skin VASC: Palpable pedal pulsed b/l with warm to cool tibia to toes b/l NEURO: Gross sensation intact digits 1-10 and b/l feet ORTHO: 20 degrees inversion and 10 degrees eversion STJ b/l. Ankle ROM less than 10 degrees b/l. minimal pain on palpation to left medial calcaneal tubercle XRAY: ASSESSMENT 1. Plantar fasciitis 2. Contracture of left ankle PLAN Patient to continue with oral anti - inflammatories as needed for pain and recommended OTC medications such as tylenol or Ibuprofen Discussed conservative and surgical treatment options for patient today including postoperative time frame and surgical procedure in detail. Patient may continue with conservative treatments including [id number] anti- inflammatories and other treatments suggested today. Patient may want to be s cheduled for surgical intervention in the near future. May consider left plantar fasciotomy in the future if condition worsens Patient is to continue with stretching excercizes daily with patient to continue with night stretching splint or manual stretching. Giovani Maria DPM documented in this encounterSt. Lukes Des Peres [id number] History of Present illness Narrative* Giovani Maria DPM - 11/22/2023 11:40 AM EDT Patient: Verito Brennan : 1965 PCP: Clair Dahl MD SUBJECTIVE Pt presents today for follow up of Left HSS. Pt has had previous treatment of 3rd steroid injection, nsaids, stretching with some relief. Pt states current pain on a 1-10 scale is a 3 to7 Pt presents today for follow up tx. Allergies: Not on File Past Medical History: No past medical history on file. Medications: No current outpatient medications on file. Social History: Social History Socioeconomic History Marital status: Spouse name: Not on file Number of children: Not on file Years of education: Not on file Highest education level: Not on file Occupational History Not on file Tobacco Use Smoking status: Unknown Smokeless tobacco: Not on file Substance and Sexual Activity Alcohol use: Defer Drug use: Defer Sexual activity: Not on file Other Topics Concern Not on file Social History Narrative Not on file Social Determinants of Health Financial Resource Strain: Not on file Food Insecurity: Not on file Transportation Needs: Not on file Physical Activity: Not on file Stress: Not on file Social Connections: Not on file Intimate Partner Violence: Not on file Housing Stability: Not on file ROS: General: denies fever, chills, fatigue, malaise GI: denies abdominal pain or ulcerations with anti-inflammatory medication OBJECTIVE LE EXAM: DERM: Positive hair growth to b/l feet with good skin turgor noted. Negative openings in skin VASC: Palpable pedal pulsed b/l with warm to cool tibia to toes b/l NEURO: Gross sensation intact digits 1-10 and b/l feet ORTHO: 20 degrees inversion and 10 degrees eversion STJ b/l. Ankle ROM less than 10 degrees b/l. Positive pain on palpation to left medial calcaneal tubercle XRAY: ASSESSMENT 1. Plantar fasciitis 2. Contracture of left ankle PLAN Patient to continue with oral anti - inflammatories as needed for pain and recommended OTC medications such as tylenol or Ibuprofen Discussed conservative and surgical treatment options for patient today including postoperative time frame and surgical procedure in detail. Patient may continue with conservative treatments including [id number] anti- inflammatories and other treatments suggested today. Patient may want to be s cheduled for surgical intervention in the near future. Did discuss possible 4th and final injectionof the year if still problematic or possible surgical intervention in the future Patient is to continue with stretching excercizes daily with patient to continue with night stretching splint or manual stretching. Giovani Maria DPM documented in this encounterSt. Lukes Des Peres [id number] History of Present illness Narrative* Giovani Maria DPM - 11/08/2023 11:00 AM EDT Patient: Verito Brennan : 1965 PCP: Clair Dahl MD SUBJECTIVE Pt presents today for follow up of Left HSS. Pt has had previous treatment of 2nd steroid injection, nsaids, stretching with intermittent relief. Pt states current pain on a 1-10 scale is a 3 Pt presents today for follow up tx. Allergies: Not on File Past Medical History: No past medical history on file. Medications: No current outpatient medications on file. Social History: Social History Socioeconomic History Marital status: Spouse name: Not on file Number of children: Not on file Years of education: Not on file Highest education level: Not on file Occupational History Not on file Tobacco Use Smoking status: Unknown Smokeless tobacco: Not on file Substance and Sexual Activity Alcohol use: Defer Drug use: Defer Sexual activity: Not on file Other Topics Concern Not on file Social History Narrative Not on file Social Determinants of Health Financial Resource Strain: Not on file Food Insecurity: Not on file Transportation Needs: Not on file Physical Activity: Not on file Stress: Not on file Social Connections: Not on file Intimate Partner Violence: Not on file Housing Stability: Not on file ROS: General: denies fever, chills, fatigue, malaise GI: denies abdominal pain or ulcerations with anti-inflammatory medication OBJECTIVE LE EXAM: DERM: Positive hair growth to b/l feet with good skin turgor noted. Negative openings in skin VASC: Palpable pedal pulsed b/l with warm to cool tibia to toes b/l NEURO: Gross sensation intact digits 1-10 and b/l feet ORTHO: 20 degrees inversion and 10 degrees eversion STJ b/l. Ankle ROM less than 10 degrees b/l. Positive pain on palpation to left medial calcaneal tubercle XRAY: ASSESSMENT 1. Plantar fasciitis 2. Contracture of left ankle PLAN Patient to continue with oral anti - inflammatories as needed for pain and recommended OTC medications such as tylenol or Ibuprofen Pt given steroid injection to left medial calcaneal tubercle under US guidance with visualization of injected fluid into area of concern per imaging. Injection of 1cc kenalog 10 and 2cc xylocaine 2% plain. Informed patient of risks and benefits of injection including non resolution of symptoms,steroid flare, tendon damage or rupture. Pt consents to proceed. 3rd injection Patient is to continue with stretching excercizes daily with patient to continue with night stretching splint or manual stretching. Giovani Maria DPM documented in this encounterSt. Lukes Des Peres [id number] History of Present illness Narrative* Giovani Maria DPM - 10/25/2023 10:50 AM EDT Patient: Verito Brennan : 1965 PCP: Clair Dahl MD SUBJECTIVE Pt presents today for follow up of Left HSS. Pt has had previous treatment of 1st steroid injection, nsaids, stretching with intermittent relief. Pt states current pain on a 1-10 scale is a 5 Pt presents today for follow up tx. Allergies: Not on File Past Medical History: No past medical history on file. Medications: No current outpatient medications on file. Social History: Social History Socioeconomic History Marital status: Spouse name: Not on file Number of children: Not on file Years of education: Not on file Highest education level: Not on file Occupational History Not on file Tobacco Use Smoking status: Unknown Smokeless tobacco: Not on file Substance and Sexual Activity Alcohol use: Defer Drug use: Defer Sexual activity: Not on file Other Topics Concern Not on file Social History Narrative Not on file Social Determinants of Health Financial Resource Strain: Not on file Food Insecurity: Not on file Transportation Needs: Not on file Physical Activity: Not on file Stress: Not on file Social Connections: Not on file Intimate Partner Violence: Not on file Housing Stability: Not on file ROS: General: denies fever, chills, fatigue, malaise GI: denies abdominal pain or ulcerations with anti-inflammatory medication OBJECTIVE LE EXAM: DERM: Positive hair growth to b/l feet with good skin turgor noted. Negative openings in skin VASC: Palpable pedal pulsed b/l with warm to cool tibia to toes b/l NEURO: Gross sensation intact digits 1-10 and b/l feet ORTHO: 20 degrees inversion and 10 degrees eversion STJ b/l. Ankle ROM less than 10 degrees b/l. Positive pain on palpation to left medial calcaneal tubercle XRAY: ASSESSMENT 1. Plantar fasciitis 2. Contracture of left ankle PLAN Patient to continue with oral anti - inflammatories as needed for pain and recommended OTC medications such as tylenol or Ibuprofen Pt given steroid injection to left medial calcaneal tubercle under US guidance with visualization of injected fluid into area of concern per imaging. Injection of 1cc kenalog 10 and 2cc xylocaine 2% plain. Informed patient of risks and benefits of injection including non resolution of symptoms,steroid flare, tendon damage or rupture. Pt consents to proceed. 2nd injection Patient is to continue with stretching excercizes daily with patient to continue with night stretching splint or manual stretching. Giovani Maria DPM documented in this encounterSt. Lukes Des Peres [id number] Telephone encounter Note* Telephone Encounter - Chely So MA - 10/17/2023 2:00 PM EDT Pt has switched pharmacy and was last seen in 06/[address] Jaime waddell appropriate. [id number] Miscellaneous Notes* Telephone Encounter - Chely So MA - 10/17/2023 2:00 PM EDT Pt has switched pharmacy and was last seen in 06/[address] Jaime waddell appropriate. documented in this [id number] Telephone encounter Note* Telephone Encounter - Erika Buckner MA - 06/21/2023 10:17 AM EDT Pt would like meds sent to mail order. [id number] Miscellaneous Notes* Telephone Encounter - Erika Buckner MA - 06/21/2023 10:17 AM EDT Pt would like meds sent to mail order. documented in this [id number] History of Present illness Narrative* Vijay Acuna MD - 06/19/2023 1:51 PM EDT Cardiology Clinic Visit Heart & Vascular [facility] 06/19/2023 Vijay Acuna MD [address] [place] [id number] Patient: Verito Brennan Date of : 1965 (58 y.o.) Referring Provider: No ref. provider found PCP: Clair Dahl MD Assessment & Plan Verito Brennan is a 58 y.o. woman with history of arthritis and back pain who orginally presented to the clinic for preoperative risk stratification for hemilaminectomy, foraminotomy, and discectomy and was found to have a LBBB. She underwent an echocardiogram which revealed systolif HF with andEF of 35%. She then underwent nuclear stress testing which revealed large septal and apical infarcts with no stress-induced ischemia. However given her cardiomyopathy and prior possible infarcts we discussed an invasive ischemic evaluation which the patient was agreeable to. She did undergo a left heart catheterization since the last clinic visit which revealed nonobstructive coronary artery disease. LVEF on left heart catheterization was 45%. She then underwent repeat echocardiogram which revealed recovery of LVEF to 50 to 55%. Chronic systolic HF -with recovery of LVEF. Euvolemic on exam. Etiology is nonischemic. She underwent left heart catheterization in 2021. Patient has been having episodes of chest pressure and shortness of breath with activity which she was having previously however her symptoms seem to be a littleworse. She is also having symptoms at night which may be related to anxiety. -I do not think her symptoms are related to obstructive coronary artery disease given her left heart catheterization in 2021. We did discuss repeating echocardiogram to reevaluate her LVEF which she was agreeable to. She does have a smoking history and some of her symptoms may be related to COPD/reactive airway disease. I have given her albuterol inhaler to see if this helps with her symptoms. -Reduce metoprolol to 50 mg daily to see if this helps with her symptoms as well. -Continue Entresto 24-26 mg twice daily Hyperlipidemia-LDL was previously above goal, she was started on atorvastatin at a prior visit. Shewas to have a lipid panel close to home. Unclear if she have this completed. We will recheck lipidsat the next visit. Return in about 6 months (around 12/19/2023). Vijay Acuna MD [facility] Non-Invasive Cardiology [facility] Heart and Vascular Chief Complaint: HF Subjective Verito Brennan is a 58 y.o. woman with history of arthritis and back pain who orginally presented to the clinic for preoperative risk stratification for hemilaminectomy, foraminotomy, and discectomy and was found to have a LBBB. She underwent an echocardiogram which revealed systolif HF with andEF of 35%. She then underwent nuclear stress testing which revealed large septal and apical infarcts with no stress-induced ischemia. However given her cardiomyopathy and prior possible infarcts we discussed an invasive ischemic evaluation which the patient was agreeable to. She did undergo a left heart catheterization since the last clinic visit which revealed nonobstructive coronary artery disease. LVEF on left heart catheterization was 45%. She then underwent repeat echocardiogram which revealed recovery of LVEF to 50 to 55%. Patient reports that she has been doing okay however she has been having episodes of chest tightness and shortness of breath. She reports that most of her symptoms seem to occur at night when she lays down. She reports that she becomes anxious that has chest tightness and feels short of breath. More recently she has been using Xanax which seems alleviate some of her symptoms. In addition to this she has had some shortness of breath with activity. She reports that with walking about half a mile she has to stop multiple times due to shortness of breath and chest tightness. She reports that if she continues to walk after the first half mile she is able to continue on without much symptoms. Shereports that this has been going on since her initial diagnosis of heart failure however believes that some of the symptoms have worsened here recently. She denies lower extremity swelling, PND and orthopnea. She denies palpitations. She denies lightheadedness dizziness. She denies any episodes of s yncope. Review of Systems: Constitution: Negative. HENT: Negative. Cardiovascular: As above. Respiratory: As above. Endocrine: Negative. Skin: Negative. Musculoskeletal: Negative. Gastrointestinal: Negative. Genitourinary: Negative. Neurological: Negative. Psychiatric/Behavioral: Negative. Past Medical History: Diagnosis Date Anxiety Back pain CHF (congestive heart failure) (HCC) Hypertension Seasonal allergies Systolic heart failure (HCC) Past Surgical History: Procedure Laterality Date CARDIAC CATHETERIZATION N/A 08/23/2021 Procedure: Coronary Angiogram; Surgeon: Rios Verduzco MD; Location: [facility] TREAT TECHNICIAN; Service: Cardiovascular CARDIAC CATHETERIZATION N/A 08/23/2021 Procedure: Left Ventriculogram; Surgeon: Rios Verduzco MD; Location: [facility] HEAT TREAT TECHNICIAN; Service: Cardiovascular CERVICAL ABLATION W/ LASER 1997 LEFT HEART CATH N/A 08/23/2021 Procedure: Left Heart Cath; Surgeon: Rios Verduzco MD; Location: [facility] HEAT TREAT TECHNICIAN; Service: Cardiovascular HEMORRHOIDECTOMY 1997 LAMINECTOMY DECOMPRESSION MINIMALLY INVASIVE SINGLE LEVEL N/A 01/13/2022 Procedure: Right L2-3 Minimally Invasive Hemilaminectomy, Foraminotomy, and Discectomy; Surgeon: Edgar Dhaliwal MD; Location: [facility] OR; Service: Neurological ORTHOPEDIC SURGERY 1 on Left foot, 2 on Right foot - last in 2001 POLYPECTOMY 1991 Throat polypectomy SPINAL CORD STIMULATOR PERMANENT Bilateral 08/24/2022 Procedure: Thoracic 10-11 Laminectomy, Insertion of Permanent Spinal Cord Stimulator Electrodes andInsertion of Right Flank Implantable Pulse Generator.; Surgeon: Edgar Dhaliwal MD; Location: [facility]; Service: Neurological SPINAL CORD STIMULATOR TEMPORARY Bilateral 08/01/2022 Procedure: Bilateral Insertion Trial Spinal Cord Stimulator via Fluoroscopic T12-L2 Approach; Surgeon: Edgar Dhaliwal MD; Location: [facility]; Service: Neurological Family History Problem Relation Age of Onset Diabetes Mother Multiple myeloma Mother Diabetes Father Atrial fibrillation Father Heart disease Brother Atrial fibrillation Brother Diabetes Brother Atrial fibrillation Maternal Aunt Social History Tobacco Use Smoking Status Some Days Packs/day: 0.10 Years: 20.00 Additional pack years: 0.00 Total pack years: 2.00 Types: Cigarettes Smokeless Tobacco Never Tobacco Comments smokes 1-2 cigarettes once in a while during stressful times. Allergies: Penicillins and Prednisone HOME Medications: Current Outpatient Medications on File Prior to Visit Medication Sig acetaminophen (TYLENOL) 500 MG tablet Take 1 (one) tablet (500 mg total) by mouth every 6 (six) hours as needed for pain . ALPRAZolam (XANAX) 0.25 MG tablet Take 1 (one) tablet (0.25 mg total) by mouth 3 (three) times a day as needed . aspirin 81 mg chewable tablet Chew and Swallow 1 (one) tablet (81 mg total) daily . atorvastatin (LIPITOR) 20 MG tablet Take 1 (one) tablet (20 mg total) by mouth daily . diphenhydrAMINE (BENADRYL) 25 mg tablet Take 1 (one) tablet (25 mg total) by mouth nightly as needed for sleep . HYDROcodone-acetaminophen (NORCO) 5-325 mg per tablet Take by mouth every 6 (six) hours . loratadine 10 mg Tab 10 mg, pseudoePHEDrine 120 mg TbER 120 mg Take by mouth as needed . metoprolol succinate (TOPROL-XL) 100 MG 24 hr tablet Take 1 (one) tablet (100 mg total) by mouth daily . sacubitriL-valsartan (Entresto) 24-26 mg per tablet Take 1 (one) tablet by mouth 2 (two) times a day . [DISCONTINUED] gabapentin (NEURONTIN) 300 MG capsule Take 1 (one) capsule (300 mg total) by mouth every 8 (eight) hours . [DISCONTINUED] naloxone (NARCAN) 4 mg/actuation [place] Administer 1 spray into one nostril for known or suspected opioid overdose. If patient worsens or does not respond, may repeat in 2-3 minutes. . [DISCONTINUED] sulfamethoxazole-trimethoprim (BACTRIM DS,SEPTRA DS) 800-160 mg per tablet Take 1 (one) tablet by mouth 2 (two) times a day . No current facility-administered medications on file prior to visit. Physical Examination: BP 123/73 (BP Location: Right arm, Patient Position: Sitting) Pulse 74 Ht 5' 10 Wt 108 kg (238 lb) LMP (LMP Unknown) SpO2 93% BMI 34.15 kg/m Constitutional: Appears well-developed and well-nourished. No distress. HENT: Head: Normocephalic and atraumatic. Eyes: Conjunctivae and EOM are normal. No scleral icterus. Neck: Normal range of motion. Cardiovascular: Normal rate and regular rhythm. Exam reveals no gallop and no friction rub. No murmur heard. No JVP elevation. No LE edema. Pulmonary/Chest: Effort normal and breath sounds normal. No respiratory distress. No wheezes. No rales. Abdominal: Soft. Bowel sounds are normal. There is no abdominal tenderness. Musculoskeletal: Normal range of motion. Neurological: AOx3, moving all ext. Skin: Skin is warm and dry. No rash noted. Psychiatric: Normal mood and affect. Cardiovascular Studies: 10/25/21 TTE Summary 1. Normal left-ventricular chamber size. Mild concentric left trickle hypertrophy. Systolic function is low-normal with no regional wall motion normalities. Estimate ejection fraction of 50 to 55%. When directly compared to the prior echocardiogram the LV systolic function has improved. 2. Right ventricular chamber dimension is normal. Right ventricular systolic function is normal. 3. No hemodynamically significant valvular disease. 4. There is no pulmonary hypertension, estimated right ventricle systolic pressure is 17 mmHg. 05/24/21 ECG Normal sinus rhythm Left bundle branch block Abnormal ECG 07/06/21 TTE Summary 1. Mildly dilated LV chamber size. There is mild concentric left ventricular hypertrophy. There is moderately reduced LV systolic function with the entire inferoseptal, entire anteroseptal and apical septal gates being akinetic. The remaining gates are hypokinetic. LVEF by 3D echo of 35%. 2. The left ventricular diastolic function is grade I diastolic dysfunction. 3. Right ventricular chamber dimension is normal. Right ventricular systolic function is normal. 4. There is no hemodynamically significant valve disease. 5. There is borderline pulmonary hypertension, estimated right ventricle systolic pressure is 38 mmHg. [facility] 08/23/21 Left Main The vessel is moderate in size. The vessel exhibits minimal luminal irregularities. No dampening ofthe pressure waveform with catheter engagement Left Anterior Descending The vessel is moderate in size. The vessel exhibits minimal luminal irregularities. Distal vessel attenuates into small caliber diameter Left Circumflex The vessel was visualized by angiography and is moderate in size. The vessel exhibits minimal luminal irregularities. Right Coronary Artery The vessel was visualized by angiography and is large. The vessel exhibits minimal luminal irregularities. Nuclear stress test 07/22/21 Summary 1. Abnormal pharmacologic stress nuclear perfusion study suggestive of large septal and apical infarction(s).. Ischemia is not demonstrated. There is severe global LV dysfunction as listed below.. 2. Nondiagnostic pharmacologic ECG portion of stress nuclear perfusion study. Resting ST segment changes. No chest discomfort. No significant arrhythmias. Normal hemodynamic response to Lexiscan. 3. There is global LV dysfunction with segmental variation as detailed below. 4. Resting ejection fraction 26%. Post stress ejection fraction 31% severe left ventricular enlargement. 5. There are large fixed defects of the septum and apical segments. Otherwise homogeneous perfusion. There is GI uptake artifact adjacent to the inferior and apical segments. 6. Overall high-risk study based on SCAI criteria (>3% predicted annual cardiac mortality). Labs: Lab Results Component Value Date GLUCOSE 102 (H) 07/26/2022 CALCIUM 9.3 07/26/2022 NA 136 07/26/2022 K 4.4 07/26/2022 CL 107 07/26/2022 BUN 11 07/26/2022 CREATININE 0.85 07/26/2022 Lab Results Component Value Date WBC 6.69 07/26/2022 HGB 13.1 07/26/2022 HCT 40.2 07/26/2022 MCV 93.9 07/26/2022 PLT 207 07/26/2022 RBC 4.28 07/26/2022 Lab Results Component Value Date CHOL 191 08/03/2021 LDLCALC 122 08/03/2021 TRIG 66 08/03/2021 HDL 56 08/03/2021 documented in this [id number] Instructions* Patient Instructions* Meir Huffman RN - 06/19/2023 8:22 AM EDT Decrease your metoprolol to 50 mg once a day How to contact your Care Team: Provider: Vijay Acuna MD Nurse: Meir Huffman RN In case of an emergency please call 911. REFILLS: When in need for refills please call your care team or the office at [phone]. Please include medication name, pharmacy name, and specify 30-day or 90-day supply. Please check with your pharmacy within 24 hours of request for your refill. You must follow up as directed to continue current refills. Thank you documented in this [id number] Telephone encounter Note* Telephone Encounter - Meir Huffman RN - 05/31/2023 2:39 PM EDT Patient's insurance changed and now needs script sent to [email or web address] in [place], [place]. #90/3 sent for lipitor 20 mg daily, entresto 24-26 mg BID, and metoprolol 100 mg daily. Patient is scheduled for follow up with Dr. Acuna on 06/18 [id number] Miscellaneous Notes* Telephone Encounter - Meir Huffman RN - 05/31/2023 2:39 PM EDT Patient's insurance changed and now needs script sent to [email or web address] in [place], [place]. #90/3 sent for lipitor 20 mg daily, entresto 24-26 mg BID, and metoprolol 100 mg daily. Patient is scheduled for follow up with Dr. Acuna on 06/18 documented in this [id number] Telephone encounter Note* Telephone Encounter - Erika Buckner MA - 05/16/2023 4:05 PM EDT Pt was last seem by Dr. Acuna in 06/2022, w/ upcoming ov in 06/2023. Refill appropriate. Routed to Dr. Saldana in Dr. Acuna's absence. [id number] Miscellaneous Notes* Telephone Encounter - Erika Buckner MA - 05/16/2023 4:05 PM EDT Pt was last seem by Dr. Acuna in 06/2022, w/ upcoming ov in 06/2023. Refill appropriate. Routed to Dr. Saldana in Dr. Acuna's absence. documented in this [id number] Evaluation note* Encounter Date Diagnosis Assessment Notes Treatment Notes Treatment Clinical Notes Feb, Bronchitis (ICD-10 - J40) Patient is advised to stay well hydrated. Finish the full antibiotic until gone. Patient is advised to add a probiotic to their diet such as yogurt. Follow up to let us know if symptoms have improved [facility] Other [id number] History of Present illness Narrative* Caroline Carrion PA-C - 02/06/2023 3:15 PM EST Patients EMG from today shows mild left carpal tunnel syndrome. I called, left voicemail. If she isinterested in pursuing treatment options can try corticosteroid injections which can be done at orthopedics. If she is interested order can be placed. Left return number. documented in this [id number] History of Present illness Narrative* Vikram Fowler MD - 02/06/2023 2:16 PM EST Images from the original note were not included. [facility] - Neurology [address] [place] [address] Nerve Conduction & EMG Report Patient: Verito Brennan Sex: Female Date of : 1965 Visit Date: 02/06/2023 2:18 PM Age: 57 Years Examining MD: Vikram Fowler MD Referred by: BRYANNA Carrion Temperature: 32.5 Current Height: 5 feet 10 inch Referred for: LUE paresthesias since August 2022. No neck pain or DM. Plan: The study is design to evaluate for radiculopathy, plexopathy, entrapment neuropathy, median or ulnar neuropathy. Indication, risk, side effects, and alternatives were explained. Patient agreedto proceed. Patient was instructed to clean the puncture site with soap and water and put some ice pack for bruising. Impression: This is an abnormal EMG. There is electrodiagnostic evidence of a mild left median nerve entrapment at the wrist without axonal damage at this time. There is NO electrodiagnostic evidenceof left cervical radiculopathy, brachial plexopathy or ulnar neuropathy at this time. EMG Summary: The left median motor nerve conduction study was normal. The left median sensory nerveconduction study showed prolonged distal latency and normal amplitude. The left ulnar motor and sensory nerve conduction studies was normal. The left radial, medial and lateral antebrachial cutaneous sensory nerve conduction study were normal. Needle EMG of the muscles tested showed no abnormal spontaneous activity. Normal motor unit action potentials and recruitment patterns were seen. Vikram Fowler MD Diplomate, ABPN, NBPAS Clinical Neurophysiology, Neurology, Vascular Neurology and Sleep Medicine [facility], [place], [place] [phone] Motor NCS Nerve / Sites Muscle Latency Amplitude Distance Velocity ms mV cm m/s L Median - APB Wrist APB 3.48 13.4 7 Elbow APB 7.63 12.1 23.5 56.7 L Ulnar - ADM Wrist ADM 2.96 12.6 6.5 B.Elbow ADM 6.44 11.3 23 66.1 A.Elbow ADM 8.81 11.3 12.5 52.6 Sensory NCS Nerve / Sites Peak Amp Amp.2-3 Distance Velocity ms V V cm m/s L Median - Digit II Wrist 3.71 65.1 111.7 13 47 L Ulnar - Digit V Wrist 3.08 43.0 48.3 11 46 L Radial - Snuff Forearm 2.00 28.5 23.0 10 68 L Lateral antebrachial cutaneous - Forearm Elbow 1.98 1.7 10.0 12 93 L Medial antebrachial cutaneous - Forearm Elbow 2.17 4.9 4.1 12 78 EMG Summary Table Spontaneous Activity Amplitude Duration Recruitment Polyphasia Comment Muscle Ins Act Fib PSW Fasc - - - - - L. Deltoid Normal 0 0 0 Normal Normal Normal Normal Normal L. Triceps brachii Normal 0 0 0 Normal Normal Normal Normal Normal L. Biceps brachii Normal 0 0 0 Normal Normal Normal Normal Normal L. Pronator teres Normal 0 0 0 Normal Normal Normal Normal Normal L. Extensor digitorum communis Normal 0 0 0 Normal Normal Normal Normal Normal L. First dorsal interosseous Normal 0 0 0 Normal Normal Normal Normal Normal L. Abductor pollicis brevis Normal 0 0 0 Normal Normal Normal Normal Normal documented in this [id number] Evaluation note* Encounter Date Diagnosis Assessment Notes Treatment Notes Treatment Clinical Notes Jan, Lumbar degenerative disc disease (ICD-10 - M51.36) With upcoming tests and her present symptoms, will extend her time off work to 04/15/23 and RTW on 04/16. This was discussed w pt and she will continue to followup w her specialists. Jan, Lumbosacral spondylosis (ICD-10 - M47.817) as above Jan, Neuropathic pain of left hand (ICD-10 - M79.2) as above [facility] Other [id number] History of Present illness Narrative* Caroline Carrion PA-C - 01/29/2023 2:16 PM EST I called patient and explained to her that Dr. Dhaliwal agrees that MR brain without contrast should be ordered to evaluate her isolated ellison sign to evaluate for UMN lesion, including MS. MR non contrasted study ordered, to include FLAIR sequence. Patient called and updated and is agreeable to MRbrain. I will call her with results of this and of her EMG and likely schedule with Dr. Dhaliwal or myself for reassessment after completion of the diagnostic tests. documented in this [id number] History of Present illness Narrative* Caroline Carrion PA-C - 01/24/2023 2:27 PM EST I called patient today to inform her the MR cervical 01/16/23 shows no findings which would explainher left arm numbness or ellison. We will proceed with EMG to evaluate for peripheral neuropathy. Will discuss with Dr. Dhaliwal if he would like any additional imaging and return plan of care to patient next week. I left voicemail today with this information. documented in this [id number] Evaluation note* Encounter Date Diagnosis Assessment Notes Treatment Notes Treatment Clinical Notes Jan, Bronchitis (ICD-10 - J40) Bronchitis suspected due to wheezes, chest tightness, cough and/or impaired air movement. Medication prescribed. Avoid extreme heat and cold as this may exacerbate inflammation of airways. If wheezing, chest tightness and/or SOB occurs, go to ER. [facility] Other 10-11-2023 Evaluation note* Encounter Date Diagnosis Assessment Notes Treatment Notes Treatment Clinical Notes Dec, Lumbar degenerative disc disease (ICD-10 - M51.36) Discussed needs for work paperwork. Off work through 02/01. Continued followup w her Neurosurgeon Dec, Lumbosacral spondylosis (ICD-10 - M47.817) Dec, Neuropathic pain of left hand (ICD-10 - M79.2) Continued followup w her neurosurgeon; MRI pending [facility] Other 10-11-2023 History of Present illness Narrative* Caroline Carrion PA-C - 12/13/2022 9:35 AM EDT Spoke to Dr. Dhaliwal regarding patients visit yesteraday, he recommends MR cervical spine and EMG LUE due to numbness and positive ellison. Tests ordered. Patient called and updated on plan of care. She is instructed to call to schedule appt with our office once these tests are scheduled. We will review them in office. documented in this [id number] Instructions* Patient Instructions* Caroline Carrion PA-C - 12/12/2022 8:04 PM EDT -The patient's neurological exam of her lower extremities is stable and baseline there is no new myelopathic or radicular symptoms she has stable pain that is stagnated, I do believe the patient would benefit from a physical therapy evaluation to help increase pain reduction as well as an Occupational Therapy order to help reintegrate into the workplace however given her financial constraints sheis unable to have these orders per patient. If she would like these orders in the future she may request them any time. I agree she should discuss with her primary care provider next steps of care ifluana is considering a long-term disability as our office does not fill long-term disability paperwork out. I explained to the patient that her spinal cord stimulator appears to be helpful and her painreduction however it does not correct any physical derangement of her spine which may elicit pain and further degeneration of her spine may make her stimulator less effective in the future. Patient has a known history of scoliosis. I advised her to continue with her daily exercises as she is doing which appears to be helping her pain syndrome and to slowly lift her bending lifting twisting restrictions over the course of next couple months as tolerated. Again I would like her to ideally complete this with the physical therapist but she is unable to do so per patient given her financial constra ints. Her incision site is well-healed I would like her to hold off on any swimming or submersion of her incision site in water for another 3 weeks at least but I do believe at this point in time herincision is completely healed there is no signs of infection or dehiscence. I took an image of thisincision site and uploaded to the media tab in [employer] with patient's verbal consent. Given the patient's numbness of her left hand and forearm I completed a physical exam of her upper extremities and cervical spine today. I noticed an isolated Nina sign of her left arm but otherwise her cervical exam was normal. Given this isolated Nina sign I will discuss this with with Dr. Dhaliwal to determ ine if further action needs to be taken given physical exam findings. Otherwise we will follow-up with the patient on an as-needed basis and I recommend patient see her primary care provider for any refills on gabapentin if requested. I explained symptoms which would warrant emergency department visit including weakness fever chills incisional redness heat swelling discharge cauda equina symptoms. I will call the patient by end of week after discussion with Dr. Dhaliwal on her numbness of her hand and Nina sign to determine next steps in care. Notify neurosurgery with any question or concern. documented in this [id number] History of Present illness Narrative* Caroline Carrion PA-C - 12/12/2022 2:05 PM EDT Neurosurgery Progress Note Assessment/Plan: Status post permanent spinal cord stimulator placement with Dr. Dhaliwal on 08/24/2022. Overall improved pain of at least 50% of her low back with the stimulator however endurance and pain reduction has stagnated in recent weeks, stable. Reported history of left forearm and hand numbness. -The patient's neurological exam of her lower extremities is stable and baseline there is no new myelopathic or radicular symptoms she has stable pain that is stagnated, I do believe the patient would benefit from a physical therapy evaluation to help increase pain reduction as well as an Occupational Therapy order to help reintegrate into the workplace however given her financial constraints sheis unable to have these orders per patient. If she would like these orders in the future she may request them any time. I agree she should discuss with her primary care provider next steps of care ifluana is considering a long-term disability as our office does not fill long-term disability paperwork out. I explained to the patient that her spinal cord stimulator appears to be helpful and her painreduction however it does not correct any physical derangement of her spine which may elicit pain and further degeneration of her spine may make her stimulator less effective in the future. Patient has a known history of scoliosis. I advised her to continue with her daily exercises as she is doing which appears to be helping her pain syndrome and to slowly lift her bending lifting twisting restrictions over the course of next couple months as tolerated. Again I would like her to ideally complete this with the physical therapist but she is unable to do so per patient given her financial constra ints. Her incision site is well-healed I would like her to hold off on any swimming or submersion of her incision site in water for another 3 weeks at least but I do believe at this point in time herincision is completely healed there is no signs of infection or dehiscence. I took an image of thisincision site and uploaded to the media tab in [employer] with patient's verbal consent. Given the patient's numbness of her left hand and forearm I completed a physical exam of her upper extremities and cervical spine today. I noticed an isolated Nina sign of her left arm but otherwise her cervical exam was normal. Given this isolated Nina sign I will discuss this with with Dr. Dhaliwal to determ ine if further action needs to be taken given physical exam findings. Otherwise we will follow-up with the patient on an as-needed basis and I recommend patient see her primary care provider for any refills on gabapentin if requested. I explained symptoms which would warrant emergency department visit including weakness fever chills incisional redness heat swelling discharge cauda equina symptoms. I will call the patient by end of week after discussion with Dr. Dhaliwal on her numbness of her hand and Nina sign to determine next steps in care. Notify neurosurgery with any question or concern. Caroline Carrion PA-C [facility] Subjective: Verito returns for follow-up today. She feels she has had at least 50% relief from her low back pain with the permanent spinal cord stimulator and is happy of her overall progress but feels she has stagnated in her pain reduction as well as her endurance when she goes on daily walks. She states her main pain generator is left low lumbar back this is not worsening and there is slow improvement.She does not have any new radicular symptoms including no new leg pain, numbness, weakness, or paresthesias. She has no bowel or bladder incontinence or saddle anesthesia. No fever or chills no concerns with her incision site no new swelling redness discharge dehiscence. No new falls or injuries. She stopped taking the 300 mg gabapentin 3 times daily because she felt it caused her to become jittery. She is interested in physical therapy but states due to financial limitations she is unable to have this completed. She is concerned about returning back to work because she has to consistently lift 20 to 30 pound objects many times throughout the day. She feels that she returns to work and doesthis her back pain will worsen. She is talking to her PCP tomorrow regarding possible disability. She tells me of separate problem of left forearm and generalized hand numbness nondermatomal which comes and goes since July 2022 and seems to be getting worse. No other focal neurological symptoms ofher upper extremities including no weakness or other paresthesia numbness or pain. No neck pain butdoes have bilateral shoulder soreness at times. No balance or gait issues. Objective: General: Healthy, well-appearing 57 y.o. female, in NAD HENT: Nares patent with minimal clear drainage, hearing grossly intact Neuro: Awake, alert, and oriented x 3; face symmetric, speech fluent Neck: Supple, full lateral rotation, no obvious gross deformity no crepitus no step-off no pain to palpation. Chest: Chest rise symmetric, respirations non-labored Cardiac: No Homans' sign, normal peripheral pulses, no edema Abdomen: soft, non-tender, non-distended Back: No rash crepitus or step-offs. Her right flank IPG and laminectomy site are CDI well-healed no signs of dehiscence, erythema, discharge, swelling, heat, or tenderness to palpation. Skin: Warm and dry and intact. MSK: Normal bulk and normal tone Manual Muscle Testing Muscle Group Right Left Biceps 5 5 Triceps 5 5 Deltoid 5 5 Python Engineer 5 5 Hand Intrinsics 5 5 Hip Flexion 5 5 Knee Extension 5 5 Knee Flexion 5 5 Dorsiflexion 5 5 Plantar Flexion 5 5 EHL 5 5 Sensation intact light touch and pressure bilateral upper and lower extremities She has an isolated left Nina however no Nina of the right. Her bicep brachioradialis and patellar reflexes are 2+ bilaterally She has no ankle clonus toes are downgoing Babinski she has no abnormal gait no ataxic or antalgic gait. Walks well. No Romberg no pronator drift. documented in this [id number] History of Present illness Narrative* Meir Huffman RN - 11/17/2022 9:21 AM EDT BRYANNA for Entresto 24-26 mg submitted thru [employer]. Prior Authorization is not required for this medication dosage form and strength at the quantity and days supply requested. The request for the medication has been previously approved and a current authorization exists. The requested medication is covered under authorization [id number] which is valid until 11/09/2023. documented in this [id number] History of Present illness Narrative* Caroline Carrion PA-C - 11/16/2022 10:13 AM EDT I called patient to discuss her right flank IPG incision site, she uploaded image of site today on [employer]. Relayed to patient it appears her incision is healing nicely, there is increased scab formation, incision appears CDI, no drainage, no increase erythema, no swelling, no dehiscence. No fever or chills. Recommended to keep site clean and dry, do not submerge incision site in water. She tells melaminectomy site no issues. She tells me she has left flank dull ache since last being seen, especially when walking with Rolator. I will refill her tizanidine for muscle spasm, I gave her DME supplycontact number so she can inquire on status of her rollator. She currently is using a family members walker which is likely not fitted correctly possible causing back pain due to poor posture. If anynew redness, heat, swelling, discharge, dehiscence, or new/worsening symptom in the interim notify neurosurgery/go to ED. documented in this [id number] Instructions* Patient Instructions* Caroline Carrion PA-C - 11/08/2022 6:23 PM EDT -Her neurological exam is stable and baseline. There is no new radicular or myelopathic symptoms. She is afebrile her incisions appear to be healing well without dehiscence or infection. I would likethe patient to continue mupirocin ointment over IPG site twice daily and continue her doxycycline regimen. She states she has 3 days worth of doxycycline left. I advised patient to take an image of her back and upload it to [facility] in 1 week for my review to ensure that her IPG site continues to heal appropriately. I still believe that her indentation in her IPG site incision site was due to extruded suture material that was accidentally scraped off by patient. There is no signs of infection. There is no signs of dehiscence. I uploaded a picture of incision site to [facility] with her verbal consent. I would like patient to continue with her current pain medication regimen. I would like her to continue with home physical therapy exercises. Should she be interested in a physical therapy program I can order one. Should she develop any new or worsening symptoms in the interim she is instructed to go to the emergency department. We will follow-up with the patient once more in 4 weeks for reevaluation, sooner if needed. documented in this [id number] History of Present illness Narrative* Caroline Carrion PA-C - 11/08/2022 6:10 PM EDT Neurosurgery Progress Note Assessment/Plan: Status post permanent spinal cord stimulator placement with Dr. Dhaliwal on 08/24/2022. Improving pain syndrome. -Her neurological exam is stable and baseline. There is no new radicular or myelopathic symptoms. She is afebrile her incisions appear to be healing well without dehiscence or infection. I would likethe patient to continue mupirocin ointment over IPG site twice daily and continue her doxycycline regimen. She states she has 3 days worth of doxycycline left. I advised patient to take an image of her back and upload it to [facility] in 1 week for my review to ensure that her IPG site continues to heal appropriately. I still believe that her indentation in her IPG site incision site was due to extruded suture material that was accidentally scraped off by patient. There is no signs of infection. There is no signs of dehiscence. I uploaded a picture of incision site to [facility] with her verbal consent. I would like patient to continue with her current pain medication regimen. I would like her to continue with home physical therapy exercises. Should she be interested in a physical therapy program I can order one. Should she develop any new or worsening symptoms in the interim she is instructed to go to the emergency department. We will follow-up with the patient once more in 4 weeks for reevaluation, sooner if needed. Caroline Carrion PA-C [facility] Subjective: Verito returns for follow-up today. She states she feels she is doing better since Sunday. Her posterior back and rib pain, hip pain, thigh pain have mostly resolved. She is mobilizing well with the aid of a rollator she borrowed from her father, rollator order still in process. She states no new numbness or weakness or pain. Denies QUAN symptoms. No fever chills or infectious symptoms. She hasbeen taking her doxycycline as prescribed without side effect and applying mupirocin ointment over her IPG battery site of her flank without issue. She denies any drainage or redness or heat or any new tenderness of her IPG site. She tells me she has been riding her bike and walking which she feels is helping with her pain syndrome. She tells me she has felt slightly drowsy the past few days. I explained that this may be due to her gabapentin increase. She wishes to continue the gabapentin, this side effect is not affecting ADLs at this point. She is interested in continuing with conservativemanagement of self- directed exercise and pain management via medication. Objective: General: Healthy, well-appearing 57 y.o. female, in NAD HENT: Nares patent with minimal clear drainage, hearing grossly intact Neuro: Awake, alert, and oriented x 3; face symmetric, speech fluent Neck: Supple, full lateral rotation Chest: Chest rise symmetric, respirations non-labored Cardiac: No Homans' sign Abdomen: soft, non-tender, non-distended Back: No rash crepitus or step-offs. Her laminectomy site is CDI. Well-healed. Her right flank IPG site is CDI there is still mid incisional indentation with healing dry scab 1mm in size no tunneling. No discharge to palpation. No redness heat or new swelling. Skin: Warm and dry and intact. MSK: Normal bulk and normal tone Manual Muscle Testing Muscle Group Right Left Hip Flexion 5 5 Knee Extension 5 5 Knee Flexion 5 5 Dorsiflexion 5 5 Plantar Flexion 5 5 EHL 5 5 Sensation intact light touch and pressure bilateral lower extremities No clonus bilaterally Patellar reflex 2+ bilaterally No abnormalities in gait documented in this [id number] Instructions* Patient Instructions* Caroline Carrion PA-C - 11/04/2022 1:14 PM EDT -No new myelopathic deficit reported her back pain is improved although cause of this improvement is unclear. She had continued back pain with her spinal cord stimulator turned off and [employer] sales representative cash registers called patient today and told her to turn the stimulator back on. She does tell me overall she feels her pain syndrome of back and legs are greatly improved with the permanent stimulator. She has left anterior thigh pain without swelling. This is mild to moderate. This may be related to her history of L2 spondylolisthesis however we will continue with home exercises. Patient may ride her bicycle as long as she wears her helmet and practices safety precautions in doing so. I believe this will help strengthen patient, give her increased confidence in her health and ability, and help improve her functional capacity. I told patient with her exercises she should take it slow using pain asa guide if something hurts stop the exercise notify neurosurgery. I offered a formal physical therapy program but patient denied stating cost and that she has had many PT sessions before knows the exercises . I believe patient may benefit from PT program for coaching and guidance and she may request the physical therapy order at any time. We will see the patient back next week in office to assess her incision sites she should continue to take the antibiotics as prescribed and go to the emergency department with any new or worsening symptoms in the interim. Should pain worsen or become more severe I will discuss the case with neurosurgeon, she may benefit from repeat imaging and/or AR injections for pain management, possibly even referral to Dr. Hoffman for pain management. Notify neurosurgery with any questions or concerns in the interim. documented in this [id number] History of Present illness Narrative* Caroline Carrion PA-C - 11/04/2022 12:49 PM EDT Neurosurgery Progress Note Despite the inherent limitations of a telehealth visit including lack of objective data patient willing to continue with visit. Assessment/Plan: 57-year-old female who presents for follow-up permanent spinal cord stimulator with improved back pain, new left anterior thigh pain. -No new myelopathic deficit reported her back pain is improved although cause of this improvement is unclear. She had continued back pain with her spinal cord stimulator turned off and [employer] sales representative cash registers called patient today and told her to turn the stimulator back on. She does tell me overall she feels her pain syndrome of back and legs are greatly improved with the permanent stimulator. She has left anterior thigh pain without swelling. This is mild to moderate. This may be related to her history of L2 spondylolisthesis however we will continue with home exercises. Patient may ride her bicycle as long as she wears her helmet and practices safety precautions in doing so. I believe this will help strengthen patient, give her increased confidence in her health and ability, and help improve her functional capacity. I told patient with her exercises she should take it slow using pain asa guide if something hurts stop the exercise notify neurosurgery. I offered a formal physical therapy program but patient denied stating cost and that she has had many PT sessions before knows the exercises . I believe patient may benefit from PT program for coaching and guidance and she may request the physical therapy order at any time. We will see the patient back next week in office to assess her incision sites she should continue to take the antibiotics as prescribed and go to the emergency department with any new or worsening symptoms in the interim. Should pain worsen or become more severe I will discuss the case with neurosurgeon, she may benefit from repeat imaging and/or AR injections for pain management, possibly even referral to Dr. Hoffman for pain management. Notify neurosurgery with any questions or concerns in the interim. Caroline Carrion PA-C [facility] Neuro[facility] Subjective: I called patient this afternoon to discuss how she is doing with her permanent spinal cord stimulator. She tells me that overall she still feels she has had at least 70% relief with a spinal cord stimulator as she did with the trial. She tells me her pain in her back was not relieved with turning off the spinal cord stimulator likely indicating it was not the stimulator causing the pain. She tells me at this point in time she has little to no back pain. She states no new leg numbness or weakness. No QUAN symptoms. She tells me her current symptom is chiefly left anterior thigh pain without edema or swelling. This is mild to moderate. She is performing ADLs. She thinks if she is able to do more activities such as cycling she feels her pain will improve. She tells me she used to ride her bicycle quite often which causes little to no discomfort and she feels good exercise for her. She denies any fever chills or redness swelling discharge dehiscence heat of the incision site for permanent spinal cord stimulator. She is also requesting a walker stating she plans to become more active on her own doing self-directed physical therapy exercises but would like a walker to help her feel more confident on her feet. She denies any new falls or injuries. She is yet to clam picker her antibiotics. She plans to pick them up today. She had her friend look at her back earlier today and states it appears the denuded scab from her IPG site is scabbing over once again there is no signs of dehiscence or infection per patient. Objective: This was a telehealth visit over telephone. No objective data obtained during visit. documented in this [id number] History of Present illness Narrative* Caroline Carrion PA-C - 11/02/2022 4:31 PM EDT I called patient and told her we will discontinue bactrim, institute doxycycline d/t theoretical hyperkalemia risk with enestro and bactrim together. Told patient that doxycycline can cause photosensitivity/diarrhea, any issues notify office. Told patient avoid taking doxycycline with calcium/iron within 2hrs before or after the doxycycline as it can impair absorption. Patient voiced understanding, thankful for call. documented in this [id number] Evaluation note* Encounter Date Diagnosis Assessment Notes Treatment Notes Treatment Clinical Notes Oct, Lumbar degenerative disc disease (ICD-10 - M51.36) Will extend time off work through 12/17. Has upcoming appts with her neurosurgeon and the rep from the [employer]. Anticipate improvement at that time. She presently has difficulty walking distances, twisting and bending. Oct, Lumbosacral spondylosis (ICD-10 - M47.817) As above. Oct, Anxiety (ICD-10 - F41.9) Chronic problem and stable - requests refill to use prn. [facility] Other 08-30-2023 Instructions* Patient Instructions* Caroline Carrion PA-C - 11/01/2022 4:32 PM EDT -Her neurological assessment is stable no myelopathy or radiculopathy. She is afebrile with no evidence of infection or dehiscence of her incision site. I believe she may have surfacing suture material which scabbed over and she accidentally picked off yesterday. There is no evidence of discharge or dehiscence of her incision site. There is no tunneling of her incision site. In the abundance of caution I prescribed Bactroban to be applied twice daily to her IPG incision site and provided sterile cotton tip applicators to apply this. I also prescribed Bactrim for 7 days as antibiotic prophylaxis. I also increased her 100 mg gabapentin 3 times daily to 300 mg 3 times daily. I discussed with he r that gabapentin can cause drowsiness and she should take it daily for optimal benefit of the medication. If she develops any abnormal side effect or issues with the medication she should notify neurosurgical office. I discussed warning signs which would warrant emergency department visit including but not limited to incision site redness, swelling, heat, tenderness, discharge, dehiscence, feveror chills, new or worsening pain, numbness, weakness, incontinence. [place] recommended patient turn off her spinal cord stimulator until Sunday and on Sunday determine if her pain is being caused by her stimulator. Patient will have her spinal cord stimulator off until then and spinal cord s timulator sales representative cash registers and myself will call patient on Sunday to discuss how she is doing and will further make plan at that point in time I also recommended to the patient to upload an image of her incision site to [facility] next Wednesday 11/08 to evaluate her incision sites. I recommended avoiding submersion of her incision sites in water at this time. I recommended her to keep her incision sites clean and dry. documented in this [id number] History of Present illness Narrative* Caroline Carrion PA-C - 11/01/2022 2:21 PM EDT Neurosurgery Progress Note Assessment/Plan: 57-year-old female who presents for follow-up permanent spinal cord stimulator with continued right hip and back pain. -Her neurological assessment is stable no myelopathy or radiculopathy. She is afebrile with no evidence of infection or dehiscence of her incision site. I believe she may have surfacing suture material which scabbed over and she accidentally picked off yesterday. There is no evidence of discharge or dehiscence of her incision site. There is no tunneling of her incision site. In the abundance of caution I prescribed Bactroban to be applied twice daily to her IPG incision site and provided sterile cotton tip applicators to apply this. I also prescribed Bactrim for 7 days as antibiotic prophylaxis. I also increased her 100 mg gabapentin 3 times daily to 300 mg 3 times daily. I discussed with he r that gabapentin can cause drowsiness and she should take it daily for optimal benefit of the medication. If she develops any abnormal side effect or issues with the medication she should notify neurosurgical office. I discussed warning signs which would warrant emergency department visit including but not limited to incision site redness, swelling, heat, tenderness, discharge, dehiscence, feveror chills, new or worsening pain, numbness, weakness, incontinence. [place] recommended patient turn off her spinal cord stimulator until Sunday and on Sunday determine if her pain is being caused by her stimulator. Patient will have her spinal cord stimulator off until then and spinal cord s timulator sales representative cash registers and myself will call patient on Sunday to discuss how she is doing and will further make plan at that point in time I also recommended to the patient to upload an image of her incision site to [facility] next Wednesday 11/08 to evaluate her incision sites. I recommended avoiding submersion of her incision sites in water at this time. I recommended her to keep her incision sites clean and dry. Caroline Carrion PA-C [facility] Neurosurgery Subjective: Patient presents for postoperative visit for T10-11 laminectomy with permanent spinal cord stimulator and right flank IPG insertion on 08/24/[address] Dhaliwal. She is having continued issues with right hip and back pain that seems to travel up her paraspinal musculature up to mid thoracic region ofher right side. She denies any new or worsening lower extremity paresthesia, numbness, pain or weakness. Denies bowel or bladder incontinence or saddle anesthesia. She denies any fever or chills. Shedenies any issues with the incision site no redness, swelling, discharge, heat, tenderness, dehiscence. She scratched her right flank IPG incision site yesterday and noticed a scab came off when she did so. Bryanna aleman is here per patient request to adjust her spinal cord stimulator settings. Bryanna aleman denies any active electrode high impedance to patient's stimulator at this point time Objective: General: This is a pleasant 49-year-old female in no acute distress. HENT: Nares patent with minimal clear drainage, hearing grossly intact normocephalic and atraumatic Neuro: Awake, alert, and oriented x 3; face symmetric, speech fluent Neck: Supple, full lateral rotation Chest: Chest rise symmetric, respirations non-labored Cardiac: No Homans' sign bilaterally. Abdomen: soft, non-tender, non-distended Back: No gross deformity to her back. No vertebral step-off or crepitus. Her T10-11 laminectomy site is well-healed and approximated. Her right flank IPG site is well-healed and approximated however middle of incision site there is sign of denuded scab however there is no tunneling or tracking or discharge or dehiscence of incision site. There is no redness of her incision site. There is no swelling over incision site. Image of incision sites of her back uploaded to [facility] with patient verbal consent. Skin: Warm and dry and intact. MSK: Manual Muscle Testing Muscle Group Right Left Hip Flexion 5 5 Knee Extension 5 5 Knee Flexion 5 5 Dorsiflexion 5 5 Plantar Flexion 5 5 EHL 5 5 Sensation intact light touch and pressure bilateral lower extremities No clonus bilaterally Patellar reflex 2+ bilaterally documented in this [id number] History of Present illness Narrative* Dionna Corrigan, SUSANNE - 10/04/2022 11:30 AM EDT Subjective Patient ID: Verito Brennan is a 57 y.o. female. She is in clinic today for a post-op appointment following a T10-11 Laminectomy, SCS insertions with placement of IPG to right flank on 08/24/[address] Dhaliwal. Chief Complaint Patient presents with Post-op Patient presents today for a post op of perm SCS on 08/24/22. Patient states that she feels like itwants to pop out of skin . Patient states that if she turns up the stimulator that she gets tingles in left arm and left foot . - Patient is 6 weeks status post SCS insertion. - Patient reports she believes that the SCS is working, but she is continuing to have a lot of nerve pain. - Torso pain has shifted from left side to right side of rib cage. - Reports [place] doesn't help much with the pain. Not taking muscle relaxers due to heart failure with reduced ejection fraction. Also did not try the gabapentin due to side effects that she had read about. -No pain with deep breathing. Some pain with coughing. -States SCS does seem to be helping her with her lower extremity pain/ numbness and lower back pain. -Denies fever, chills, SOB, chest pain. Assessment/Plan: -Nerve pain continues in torso. It has now moved to the right side as patient endorses having over-compensated for the last few weeks due to left side pain. Left side pain has resolved. -Changed muscle relaxer to tizanidine 2mg d/t patient having a history of HF -Discussed gabapentin 100mg TID for the next 30 days to calm the nerve pain that she is having. -She is to keep her incision sites clean and dry, avoid bending or twisting thoracolumbar spine, avoid pushing,pulling, lifting objects over 10-15 pounds until cleared by neurosurgery. She is encouraged to ambulate daily as tolerated to prevent deconditioning. The following portions of the patient's history were reviewed and updated as appropriate: allergies, current medications, past family history, past medical history, past social history, past surgicalhistory, and problem list. OARRS/NARxCHECK Report Received and Assessed: 10/04/22 Functional Assessment: Narcotic 280 Sedative 190 Stimulant 000 Objective Vitals 10/04/22 1140 BP: (!) 112/57 Pulse: 83 Resp: 18 Temp: 98 F (36.7 C) SpO2: 96% PainSc: 8 PainLoc: Back Current Outpatient Medications: acetaminophen (TYLENOL) 500 MG tablet, Take 1 (one) tablet (500 mg total) by mouth every 6 (six) hours as needed for pain ., Disp: , Rfl: ALPRAZolam (XANAX) 0.25 MG tablet, Take 1 (one) tablet (0.25 mg total) by mouth 3 (three) times a day as needed ., Disp: , Rfl: aspirin 81 mg chewable tablet, Chew and Swallow 1 (one) tablet (81 mg total) daily ., Disp: , Rfl: atorvastatin (LIPITOR) 20 MG tablet, Take 1 (one) tablet (20 mg total) by mouth daily ., Disp: 90 tablet, Rfl: 3 diphenhydrAMINE (BENADRYL) 25 mg tablet, Take 1 (one) tablet (25 mg total) by mouth nightly as needed for sleep ., Disp: , Rfl: HYDROcodone-acetaminophen (NORCO) 5-325 mg per tablet, Take by mouth every 6 (six) hours ., Disp: ,Rfl: loratadine 10 mg Tab 10 mg, pseudoePHEDrine 120 mg TbER 120 mg, Take by mouth as needed ., Disp: , Rfl: metoprolol succinate (TOPROL-XL) 100 MG 24 hr tablet, Take 1 (one) tablet (100 mg total) by mouth daily ., Disp: 90 tablet, Rfl: 3 sacubitriL-valsartan (Entresto) 24-26 mg per tablet, Take 1 (one) tablet by mouth 2 (two) times a day ., Disp: 180 tablet, Rfl: 3 cyclobenzaprine (FLEXERIL) 5 MG tablet, Take 1 (one) tablet (5 mg total) by mouth 3 (three) times aday as needed for muscle spasms . (Patient not taking: Reported on 10/04/2022 .), Disp: 90 tablet, Rfl: 0 gabapentin (NEURONTIN) 100 MG capsule, Take 1 (one) capsule (100 mg total) by mouth 3 (three) timesa day . (Patient not taking: Reported on 10/04/2022 .), Disp: 90 capsule, Rfl: 11 Past Medical History: Diagnosis Date Anxiety Back pain CHF (congestive heart failure) ([facility]) Hypertension Seasonal allergies Systolic heart failure ([facility]) Physical Exam Constitutional: Appearance: Normal appearance. Eyes: Extraocular Movements: Extraocular movements intact. Pupils: Pupils are equal, round, and reactive to light. Musculoskeletal: General: No tenderness. Normal range of motion. Cervical back: Normal range of motion. No tenderness. Comments: 5/5 muscle strength throughout. No tenderness to paraspinal muscles with palpation. Incision is well healed to both locations s/p SCS insertion. No signs of infection or irritation. No drainage observed. Skin: General: Skin is warm and dry. Capillary Refill: Capillary refill takes 2 to 3 seconds. Neurological: General: No focal deficit present. Mental Status: She is alert and oriented to person, place, and time. Sensory: No sensory deficit. Motor: No weakness. Coordination: Coordination normal. Gait: Gait normal. Deep Tendon Reflexes: Reflexes normal. Dionna Corrigan CNP documented in this [id number] Telephone encounter Note* Telephone Encounter - Erika Buckner MA - 10/03/2022 8:11 AM EDT Patient was last seen by Susanne Power in 12/2021. Refill appropriate. [id number] Miscellaneous Notes* Telephone Encounter - Erika Buckner MA - 10/03/2022 8:11 AM EDT Patient was last seen by Susanne Power in 12/2021. Refill appropriate. documented in this [id number] Evaluation note* Encounter Date Diagnosis Assessment Notes Treatment Notes Treatment Clinical Notes Sep, Thoracic spine pain (ICD-10 - M54.6) Pt agrees to pain mgmt referral as her friend had a good response to an injection after pain device was placed for her. Sep, Allergic contact dermatitis due to adhesives (ICD-10 - L23.1) Advised it is safe to use OTC hydrocortisone spray. [facility] Other 07-07-2023 History of Present illness Narrative* Dionna Corrigan, SUSANNE - 09/08/2022 10:00 AM EDT Subjective Patient ID: Verito Brennan is a 57 y.o. female. She is 2 weeks post op from Procedure: Thoracic 10-11 Laminectomy, Insertion of Permanent Spinal Cord Stimulator Electrodes and Insertion of Right Flank Implantable Pulse Generator. With Dr. Dhaliwal on 08/24/2022. -Complains of continued pain to left thoracic areas that wraps around the ribcage and under her left breast. -Pain is better when patient is laying on left side with arm tucked under her. -Pain is worsened by reaching for things. She states it is worse to reach down than to reach up. -No pain with deep breathing. Some pain with coughing. -States SCS does seem to be helping her with her lower extremity pain/ numbness and lower back pain. -Denies fever, chills, SOB, chest pain. -States her back is very itchy all over. The following portions of the patient's history were reviewed and updated as appropriate: allergies, current medications, past family history, past medical history, past social history, past surgicalhistory, and problem list. Review of Systems Constitutional: Negative for chills, fatigue and fever. HENT: Negative. Respiratory: Negative for chest tightness and shortness of breath. Cardiovascular: Negative for chest pain. Musculoskeletal: Positive for back pain. Skin: Negative. Neurological: Negative for dizziness, weakness, numbness and headaches. Psychiatric/Behavioral: Negative. Objective Vitals 09/08/22 1006 BP: 114/70 Pulse: 75 Temp: 98 F (36.7 C) SpO2: 97% PainSc: 8 PainLoc: Back Current Outpatient Medications: acetaminophen (TYLENOL) 500 MG tablet, Take 1 (one) tablet (500 mg total) by mouth every 6 (six) hours as needed for pain ., Disp: , Rfl: ALPRAZolam (XANAX) 0.25 MG tablet, Take 1 (one) tablet (0.25 mg total) by mouth 3 (three) times a day as needed ., Disp: , Rfl: aspirin 81 mg chewable tablet, Chew and Swallow 1 (one) tablet (81 mg total) daily ., Disp: , Rfl: atorvastatin (LIPITOR) 20 MG tablet, Take 1 (one) tablet (20 mg total) by mouth daily ., Disp: 90 tablet, Rfl: 3 diphenhydrAMINE (BENADRYL) 25 mg tablet, Take 1 (one) tablet (25 mg total) by mouth nightly as needed for sleep ., Disp: , Rfl: HYDROcodone-acetaminophen (NORCO) 5-325 mg per tablet, Take by mouth every 6 (six) hours ., Disp: ,Rfl: loratadine 10 mg Tab 10 mg, pseudoePHEDrine 120 mg TbER 120 mg, Take by mouth as needed ., Disp: , Rfl: metoprolol succinate (TOPROL-XL) 100 MG 24 hr tablet, Take 1 (one) tablet (100 mg total) by mouth daily ., Disp: 90 tablet, Rfl: 3 senna-docusate (SENNA-S) 8.6-50 mg, Take 2 (two) tablets by mouth daily For constipation for 14 days ., Disp: 28 tablet, Rfl: 0 cyclobenzaprine (FLEXERIL) 5 MG tablet, Take 1 (one) tablet (5 mg total) by mouth 3 (three) times aday as needed for muscle spasms ., Disp: 90 tablet, Rfl: 0 gabapentin (NEURONTIN) 100 MG capsule, Take 1 (one) capsule (100 mg total) by mouth 3 (three) timesa day ., Disp: 90 capsule, Rfl: 11 HYDROcodone-acetaminophen (NORCO) 5-325 mg per tablet, Take 1 (one) tablet by mouth every 6 (six) hours as needed for pain ., Disp: 28 tablet, Rfl: 0 naloxone (NARCAN) 4 mg/actuation [place], Administer 1 spray into one nostril for known or suspected opioid overdose. If patient worsens or does not respond, may repeat in 2-3 minutes. ., Disp: 2 each, Rfl: 0 sacubitriL-valsartan (Entresto) 24-26 mg per tablet, Take 1 (one) tablet by mouth 2 (two) times a day ., Disp: 180 tablet, Rfl: 3 Past Medical History: Diagnosis Date Anxiety Back pain CHF (congestive heart failure) (HCC) Hypertension Seasonal allergies Systolic heart failure (HCC) Physical Exam Constitutional: General: She is not in acute distress. Appearance: Normal appearance. HENT: Head: Normocephalic and atraumatic. Eyes: Pupils: Pupils are equal, round, and reactive to light. Cardiovascular: Rate and Rhythm: Normal rate. Pulses: Normal pulses. Pulmonary: Effort: Pulmonary effort is normal. No respiratory distress. Abdominal: Palpations: Abdomen is soft. Tenderness: There is no abdominal tenderness. Musculoskeletal: General: No swelling or tenderness. Normal range of motion. Cervical back: Normal range of motion and neck supple. Comments: No paraspinal tenderness. 5/5 motor strength to bilateral lower extremities with no loss of sensation. No numbness or tingling. Reflexes 1+ patellar Skin: General: Skin is warm and dry. Capillary Refill: Capillary refill takes 2 to 3 seconds. Comments: Incision are clean and dry. Prineo in place to each. Both were starting to peel away fromskin. I removed them completely. Incisions are well approximated. No edema, erythema, ecchymosis, or drainage noted. Neurological: General: No focal deficit present. Mental Status: She is alert and oriented to person, place, and time. Sensory: No sensory deficit. Motor: No weakness. Deep Tendon Reflexes: Reflexes normal. Psychiatric: Mood and Affect: Mood normal. Behavior: Behavior normal. OARRS reviewed Assessment/Plan: -Patient is having some sharp and intense fast pain to left mid-thoracic area that runs along the dermatome to up under her breast on left. Likely nerve pain from irritation from the placement of theSCS. -Prescribed gabapentin 100mg TID for the next 30 days to calm the nerve pain that she is having. Will refill flexeril. Change the percocet to norco for pain. -She is to keep her incision sites clean and dry, avoid bending or twisting thoracolumbar spine, avoid pushing,pulling, lifting objects over 10-15 pounds until cleared by neurosurgery. She is encouraged to ambulate daily as tolerated to prevent deconditioning. Follow up in 4 weeks or sooner if needed. Diagnoses and all orders for this visit: Status post insertion of spinal cord stimulator - HYDROcodone-acetaminophen (NORCO) 5-325 mg per tablet; Take 1 (one) tablet by mouth every 6 (six)hours as needed for pain . Failed back syndrome, lumbosacral - cyclobenzaprine (FLEXERIL) 5 MG tablet; Take 1 (one) tablet (5 mg total) by mouth 3 (three) timesa day as needed for muscle spasms . - gabapentin (NEURONTIN) 100 MG capsule; Take 1 (one) capsule (100 mg total) by mouth 3 (three) times a day . Status post lumbar discectomy - HYDROcodone-acetaminophen (NORCO) 5-325 mg per tablet; Take 1 (one) tablet by mouth every 6 (six)hours as needed for pain . - cyclobenzaprine (FLEXERIL) 5 MG tablet; Take 1 (one) tablet (5 mg total) by mouth 3 (three) timesa day as needed for muscle spasms . - gabapentin (NEURONTIN) 100 MG capsule; Take 1 (one) capsule (100 mg total) by mouth 3 (three) times a day . Neuropathy Dionna Corrigan CNP documented in this [id number] History of Present illness Narrative* Edgar Dhaliwal MD - 08/25/2022 12:40 PM EDT Impression. Postop day #1, insertion permanent spinal cord stimulator system via T10 laminectomy, right flank IPG. Plan. Discharge home. Follow-up in neurosurgery clinic next week for wound check and reprogramming. Subjective. Patient having typical amount of pain at the incisional site along the bra strap area approximately T9 T10-11. No weakness or numbness of the legs. Objective. Awake alert pleasant female. Incisional dressings are clean and dry with no swelling. There is no erythema along the right flank. There is some mild bruising around the IPG site but no drainage. Power in the bilateral lower extremities is 5 out of 5 and equal. Lungs are clear with no wheezing. * Caroline Carrion PA-C - 08/25/2022 9:30 AM EDT Neurosurgery Progress Note Assessment/Plan: s/p insertion of permanent spinal cord stimulator POD 1 -Neuromotor exam stable, afebrile, no myelopathy, no radicular symptoms, incisions sites are covered with sterile dressing and are clean, dry, intact, pain is controlled. -Discharge instructions given to patient verbally and are described in her discharge summary. She is to follow up with neurosurgery department in 1 week for incision check and 2 weeks for provider visit. After discussion with Bryanna aleman about her stimulator she is able to be discharged home. Patient had no additional questions but was instructed to call neurosurgery if she has questions. Caroline Carrion PA-C [facility] Neurosurgery Subjective: Pt is a 57 y/o female s/p insertion of permanent spinal cord stimulator POD 1. She states she feelswell and would like to go home today. She has pain around her stimulator incision site lower thoracic level which is controlled with current medication treatment. No IPG site pain. Her Aquacel dressings are intact and clean and dry. She denies any new leg pain, weakness, numbness. No QUAN symptoms. She has passed flatus. She has been ambulating to restroom. She is waiting for bryanna alemanto discuss SCS with her. Objective: General: Healthy, well-appearing 57 y.o. female, in NAD HENT: Nares patent with minimal clear drainage, hearing grossly intact Neuro: Awake, alert, and oriented x 3; face symmetric, speech fluent Neck: Supple, full lateral rotation Chest: Chest rise symmetric, respirations non-labored Cardiac: No LE edema or tenderness. Abdomen: soft, non-tender, non-distended Back: No crepitus or step-offs of vertebrae. There is midline and paraspinal muscle tenderness to palpation of lower thoracic spine where incision site is, her Aquacel dressings SCS insertion site and IPG site are clean dry and intact. No redness, discharge, dehiscence, swelling noted around dressings. Skin: Warm and dry and intact MSK: Normal bulk, Normal tone Manual Muscle Testing Muscle Group Right Left Hip Flexion 5 5 Knee Extension 5 5 Knee Flexion 5 5 Dorsiflexion 5 5 Plantar Flexion 5 5 EHL 5 5 Sensation intact to light touch and pressure x b/l lower extremities Patellar reflex 2+ b/l documented in this [id number] Hospital course Narrative* Caroline Carrion PA-C - 08/25/2022 10:44 AM EDT DISCHARGE SUMMARY Patient: Verito Brennan Date of : 1965 Site: [facility] Provider: Clair Dahl MD Admit Date: 08/24/2022 Discharge Date/Time: 08/25/2022 1130 Disposition: Home Clinical Summary Hospital Course: Pt is a 57 y/o female with a PMHx of anxiety, CHF, HTN, seasonal allergies who presented to neurosurgical service for Hx of failed back syndrome to undergo permanent spinal cord stimulator placement with right flank IPG on 08/24/[address] Dhaliwal. She is residing in room 3719 in good condition, minimal incisional pain, no incision site dehiscence or discharge. She was evaluated by PT this AM and they recommend discharge home no skilled therapy needed. She is to be seen by [employer] sales representative cash registers this morning to discuss how to operate her spinal cord stimulator. She is to be discharged today with neurosurgical follow up in one week. She is to keep her incision sites clean and dry, avoid bending or twisting thoracolumbar spine, avoid pushing,pulling, lifting objects over 5 pounds until cleared by neurosurgery. She is encouraged to ambulate daily as tolerated to prevent deconditioning. Should she have any questions she should call neurosurgical department. She should seek emergency department care should she develop any concerning signs or symptoms including but not limited to unremitting pain, weakness, numbness, incontinence, fever, incisional redness, discharge, or dehiscence. Discharge Diagnoses: Failed back syndrome Surgeries: 08/24/22 Thoracic 10-11 Laminectomy, Insertion of Permanent Spinal Cord Stimulator Electrodes and Insertion of Right Flank Implantable Pulse Generator. Consults: No orders of the defined types were placed in this encounter. Allergies: Penicillins and Prednisone Discharge Diet: Condition: Good Discharge Medications: Discharge Medications Unreviewed Medications Details acetaminophen 500 MG tablet Commonly known as: TYLENOL Take 1 (one) tablet (500 mg total) by mouth every 6 (six) hours as needed for pain . ALPRAZolam 0.25 MG tablet Commonly known as: XANAX Take 1 (one) tablet (0.25 mg total) by mouth 3 (three) times a day as needed . aspirin 81 mg chewable tablet Chew and Swallow 1 (one) tablet (81 mg total) daily . atorvastatin 20 MG tablet Commonly known as: LIPITOR Take 1 (one) tablet (20 mg total) by mouth daily . Quantity: 90 tablet diphenhydrAMINE 25 mg tablet Commonly known as: BENADRYL Take 1 (one) tablet (25 mg total) by mouth nightly as needed for sleep . Entresto 24-26 mg per tablet Generic drug: sacubitriL-valsartan Take 1 (one) tablet by mouth 2 (two) times a day . Quantity: 180 tablet HYDROcodone-acetaminophen 5-325 mg per tablet Commonly known as: NORCO Take by mouth every 6 (six) hours . ibuprofen 800 MG tablet Commonly known as: ADVIL,MOTRIN Take 600 mg by mouth 3 (three) times a day as needed . loratadine 10 mg Tab 10 mg, pseudoePHEDrine 120 mg TbER 120 mg Take by mouth as needed . metoprolol succinate 100 MG 24 hr tablet Commonly known as: TOPROL-XL Take 1 (one) tablet (100 mg total) by mouth daily . Quantity: 90 tablet Physician(s) Family Provider: Clair Dahl MD, Address: [address] [place] [address] Follow Up: No follow-up provider specified. Additional Information: Patient instructions, including activity, were given to the patient/family at discharge. Please seethe After Visit Summary in the electronic medical record for details. Time spent on discharge: < 30 minutes Completed by: Caroline Carrion PA-C on 08/25/22, 10:44 AM Associated attestation - Edgar Dhaliwal MD - 08/25/2022 1:30 PM EDT I attest. documented in this [id number] Hospital Note* Hospital Course - Caroline Carrion PA-C - 08/25/2022 10:38 AM EDT Pt is a 57 y/o female with a PMHx of anxiety, CHF, HTN, seasonal allergies who presented to neurosurgical service for Hx of failed back syndrome to undergo permanent spinal cord stimulator placement with right flank IPG on 08/24/[address] Dhaliwal. She is residing in room 3719 in good condition, minimal incisional pain, no incision site dehiscence or discharge. She was evaluated by PT this AM and they recommend discharge home no skilled therapy needed. She is to be seen by [employer] sales representative cash registers this morning to discuss how to operate her spinal cord stimulator. She is to be discharged today with neurosurgical follow up in one week. She is to keep her incision sites clean and dry, avoid bending or twisting thoracolumbar spine, avoid pushing,pulling, lifting objects over 5 pounds until cleared by neurosurgery. She is encouraged to ambulate daily as tolerated to prevent deconditioning. Should she have any questions she should call neurosurgical department. She should seek emergency department care should she develop any concerning signs or symptoms including but not limited to unremitting pain, weakness, numbness, incontinence, fever, incisional redness, discharge, or dehiscence. [id number] Miscellaneous Notes* Hospital Course - Caroline Carrion PA-C - 08/25/2022 10:38 AM EDT Pt is a 57 y/o female with a PMHx of anxiety, CHF, HTN, seasonal allergies who presented to neurosurgical service for Hx of failed back syndrome to undergo permanent spinal cord stimulator placement with right flank IPG on 08/24/[address] Dhaliwal. She is residing in room 3719 in good condition, minimal incisional pain, no incision site dehiscence or discharge. She was evaluated by PT this AM and they recommend discharge home no skilled therapy needed. She is to be seen by [employer] sales representative cash registers this morning to discuss how to operate her spinal cord stimulator. She is to be discharged today with neurosurgical follow up in one week. She is to keep her incision sites clean and dry, avoid bending or twisting thoracolumbar spine, avoid pushing,pulling, lifting objects over 5 pounds until cleared by neurosurgery. She is encouraged to ambulate daily as tolerated to prevent deconditioning. Should she have any questions she should call neurosurgical department. She should seek emergency department care should she develop any concerning signs or symptoms including but not limited to unremitting pain, weakness, numbness, incontinence, fever, incisional redness, discharge, or dehiscence. * Plan of Care - Sulema Aguilera, PT - 08/25/2022 8:12 AM EDT Physical Therapy Plan of Care Certification Note Coded Admission Diagnosis Failed back syndrome, lumbosacral [M96.1] PT Functional Diagnosis: R26.89 Other abnormalities of gait and mobility PT Goals Encounter Problems (Active) Problem: Mobility - Impaired Dates: Start: 08/25/22 Disciplines: PT Goal: pt- bed mobility Dates: Start: 08/25/22 Expected End: 08/30/22 Description: PT - Patient will perform bed mobility with modified independence via logroll to improve functional mobility and safety. Disciplines: PT Goal: PT- sit to stand transfer Dates: Start: 08/25/22 Expected End: 08/30/22 Description: PT - Patient will perform sit to/from stand transfer with modified independence to improve functional mobility and safety. Disciplines: PT Goal: PT- stand-pivot transfer Dates: Start: 08/25/22 Expected End: 08/30/22 Description: PT - Patient will perform stand-pivot transfer with modified independence to improve functional mobility and safety. Disciplines: PT Goal: PT- ambulation Dates: Start: 08/25/22 Expected End: 08/30/22 Description: PT - Patient will ambulate 250 feet without device with modified independence to improve functional mobility and safety. Disciplines: PT Goal: PT- stair climbing Dates: Start: 08/25/22 Expected End: 08/30/22 Description: PT - Patient will ascend and descend 15 stairs with non-reciprocal technique with 1 rail with modified independence to improve functional mobility and safety. Disciplines: PT Intervention: Education, Assistive device training Frequency: PRN Dates: Start: 08/25/22 Intervention: Education, Bed mobility training Frequency: PRN Dates: Start: 08/25/22 Intervention: Education, Balance training Frequency: PRN Dates: Start: 08/25/22 Description: REMINDER(s): Reinforce education provided by Physical Therapy related to balance training. Intervention: Education, Gait training Frequency: PRN Dates: Start: 08/25/22 Intervention: Education, stair training Frequency: PRN Dates: Start: 08/25/22 Intervention: Education, Therapeutic exercise Frequency: PRN Dates: Start: 08/25/22 Intervention: Education, Transfer training Frequency: PRN Dates: Start: 08/25/22 Intervention: Education, Precautions Frequency: PRN Dates: Start: 08/25/22 Frequency of Treatment (times per week): Up to 3-5x wk This physical Therapy Plan of Care will be carried out until: 1.) The PT plan has been resolved or 2.) The patient is discharged from the acute care hospital Associated attestation - Edgar Dhaliwal MD - 08/25/2022 1:30 PM EDT I attest. * Plan of Care - Twin Akers RN - 08/24/2022 6:59 PM EDT Problem: Actual or potential alteration in health Goal: Absence of healthcare acquired conditions 08/24/20221858 by Twin Akers RN Outcome: Partially Met 08/24/20221855 by Twin Akers RN Outcome: Partially Met 08/24/2022 175 by Twin Akers RN Outcome: Not Met Goal: Knowledge of Interdisciplinary Plan of Care 08/24/20221858 by Twin Akers RN Outcome: Partially Met 08/24/20221855 by Twin Akers RN Outcome: Partially Met 08/24/2022 175 by Twin Akers RN Outcome: Not Met Goal: Knowledge of Enviroment 08/24/20221858 by Twin Akers RN Outcome: Partially Met 08/24/20221855 by Twin Akers RN Outcome: Partially Met 08/24/2022 175 by Twin Akers RN Outcome: Not Met Problem: Pain Goal: Manage acute pain 08/24/20221858 by Twin Akers RN Outcome: Partially Met 08/24/20221855 by Twin Akers RN Outcome: Partially Met 08/24/2022 175 by Twin Akers RN Outcome: Not Met Goal: Manage chronic pain 08/24/2022 185 by Twin Akers RN Outcome: Partially Met 08/24/2022 185 by Twin Akers RN Outcome: Partially Met 08/24/2022 175 by Twin Akers RN Outcome: Not Met Goal: Reduced pain sensation 08/24/20221858 by Twin Akers, DENEEN Outcome: Partially Met 08/24/2022 185 by Twin Akers RN Outcome: Partially Met 08/24/2022 175 by Twin Akers RN Outcome: Not Met Goal: Achievement of comfort function goal 08/24/20221858 by Twin Akers RN Outcome: Partially Met 08/24/20221855 by Twin Akers RN Outcome: Partially Met 08/24/2022 175 by Twin Akers RN Outcome: Not Met Problem: Pressure Ulcer - Risk of Goal: Absence of pressure ulcer 08/24/20221858 by wTin Akers RN Outcome: Partially Met 08/24/20221855 by Twin Akers RN Outcome: Partially Met 08/24/2022 175 by Twin Akers RN Outcome: Not Met * Plan of Care - Twin Akers RN - 08/24/2022 6:56 PM EDT Problem: Actual or potential alteration in health Goal: Absence of healthcare acquired conditions 08/24/20221855 by Twin Akers RN Outcome: Partially Met 08/24/2022 175 by Twin Akers RN Outcome: Not Met Goal: Knowledge of Interdisciplinary Plan of Care 08/24/20221855 by Twin Akers RN Outcome: Partially Met 08/24/20221750 by Twin Akers RN Outcome: Not Met Goal: Knowledge of Enviroment 08/24/20221855 by Twin Akers RN Outcome: Partially Met 08/24/2022 175 by Twin Akers RN Outcome: Not Met Problem: Pain Goal: Manage acute pain 08/24/20221855 by Twin Akers RN Outcome: Partially Met 08/24/2022 175 by Twin Akers RN Outcome: Not Met Goal: Manage chronic pain 08/24/20221855 by Twin Akers RN Outcome: Partially Met 08/24/2022 175 by Twin Akers RN Outcome: Not Met Goal: Reduced pain sensation 08/24/20221855 by Twin Akers, DENEEN Outcome: Partially Met 08/24/2022 175 by Twin Akers RN Outcome: Not Met Goal: Achievement of comfort function goal 08/24/2022 1856 by Twin Akers RN Outcome: Partially Met 08/24/2022 1751 by Twin Akers RN Outcome: Not Met Problem: Pressure Ulcer - Risk of Goal: Absence of pressure ulcer 08/24/2022 1856 by Twin Akers RN Outcome: Partially Met 08/24/2022 1751 by Twin Akers RN Outcome: Not Met * Plan of Care - Twin Akers RN - 08/24/2022 5:51 PM EDT Problem: Actual or potential alteration in health Goal: Absence of healthcare acquired conditions Outcome: Not Met Goal: Knowledge of Interdisciplinary Plan of Care Outcome: Not Met Goal: Knowledge of Enviroment Outcome: Not Met Problem: Pain Goal: Manage acute pain Outcome: Not Met Goal: Manage chronic pain Outcome: Not Met Goal: Reduced pain sensation Outcome: Not Met Goal: Achievement of comfort function goal Outcome: Not Met Problem: Pressure Ulcer - Risk of Goal: Absence of pressure ulcer Outcome: Not Met * Op Note - Edgar Dhaliwal MD - 08/24/2022 1:44 PM EDT VERITO BRENNAN [facility] [id number] 1965 DATE 08/24/2022 OPERATIVE REPORT SURGEON EDGAR DHALIWAL MD PREOPERATIVE DIAGNOSIS 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 PROCEDURE T10 laminectomy, insertion dorsal permanent paddle spinal cord stimulator electrode, implantation of right flank IPG via separate incision. ANESTHESIA General. INDICATIONS Verito Brennan is a 57-year-old female suffering from failed back syndrome. She underwent a successful trial spinal cord stimulator implantation from 08/01/2021 through 08/04/2022. She now presents for permanent spinal cord stimulator implantation. PROCEDURE IN DETAIL The procedure was performed in OR #2. The patient was intubated and general anesthesia was established. An appropriate time-out was performed. Neurosurgery, anesthesiology and nursing teams all agreed with the patient's identity and planned procedure. After intubation and establishing general anesthesia, she was rolled in the prone position on the Seven spine frame taking care to pad all pressure points. She received 900 mg of clindamycin at the onset of the procedure for antibiotic prophylaxis. Fluoroscopy was used to identify the T10 pedicle level. The skin was marked and then the thoracic area and flank area were then prepped with alcohol and then ChloraPrep and draped in usual sterile fashion. The proposed incision sites were infiltrated with a total of 10 cc of a 1:1 mixture of 0.5% Marcaine plain and 1% lidocaine plain. A midline incision was made spanning the T10 level. Points were controlled with bipolar cautery. Monopolar cautery was then used to dissect down through a subperiosteal fashion through the thoracic dorsal fascia and to expose the spinous processes and lamina and medial facet joints at the T10 level. Self-retaining retractor was placed. The spinous process of T10 was resected. Next, a Midas-Andrez drill was then used to thin the lamina of T10. Various sizes of curettes and Kerrison rongeurs were then used to complete a T10 laminectomy. Bony edges were liberally waxed. Epidural fat was bipolar coagulated. Epidural space appeared normal in all respects. Next, a Penta spinal cord stimulator lead was passed without difficulty from a caudad to cephalad direction. Fluoroscopy was then used to final adjust the lead so that the superior aspect of the lead was at the superior T8 vertebral body level spanning T8 to the T9 vertebral body level which replicated the patient's successful trial stimulator electrode placement. [place] boots were applied to each of the lead wires and were cinched with 3-0 silk ties. [place] boot tie combination was then secured to the fascia with 2-0 silk tie. Next, a separate incision made in the right flank area with a 10 blade. Subcutaneous pocket was developed with Bovie cautery. Next, a tunneling trocar and straw was then passed from the thoracic incision to the IPG site and trocar removed. Leads were passed through the tunneling straw and the tunneling straw was then removed. A Proclaim IPG was brought on the field and the leads were inserted into the headers and the screws torque tightened to transmission line engineer's recommended tightness. The system was interrogated by a sales representative cash registers from [employer] and noted to be functioning normally in all respects. The IPG was secured to fascia in the pocket with 0 Vicryl. Both operative sites were irrigated with Irrisept. A total of 450 cc followed by 300 cc of saline evenly distributed between the two sites. Hemostasis was excellent at both sites. At no time was there any evidence of cerebrospinal fluid leakage. Small amounts of Floseal and thrombin-soaked Gelfoam were used for epidural hemostasis all of which was irrigated and removed out of the field by the end of the procedure. Next, the thoracic fascia was closed with multiple inverted interrupted 0 Vicryl sutures. The deep dermal layer at each of these sites was closed with inverted interrupted 2-0 Vicryl suture followed by closure of the skin of each of the sites with a 4-0 Monocryl subcuticular suture and closure of skin with Dermabond, Prineo and covered with Aquacel antibiotic dressing. The patient tolerated the procedure well. She was returned to the supine position, extubated and transferred to PACU in stable condition. EDGAR DHALIWAL MD D 08/24/2022 13:00 [id number] T 08/24/2022 13:38 [facility] [place] * Brief Op Note - Edgar Dhaliwal MD - 08/24/2022 1:05 PM EDT Brief Post Operative Note Patient Name: Verito Brennan : 1965 (57 y.o.) Date of Service: 08/24/2022 [facility]: [id number] Procedure(s): Thoracic 10-11 Laminectomy, Insertion of Permanent Spinal Cord Stimulator Electrodes and Insertion of Right Flank Implantable Pulse Generator. 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] Post-Operative Diagnoses: * Failed back syndrome, lumbosacral [M96.1] Surgeon(s) and Role: * Edgar Dhaliwal MD - Primary Anesthesiologist: Gopal Neville MD ACCOUNTS PAYABLES CLERK: Mike Fitzgerald CRNA Anesthesiologist Plant Cytologist: Cal Mcgrath AA Test Skein Winder: Nuris Mcrae RN Scrub Person: Fang Buck ST Scrub Person Assist: Melissa Herman RN Operative findings: Normal epidural space Intra and immediate post-operative complications: none Type of anesthesia used: General Estimated blood loss: less than 50 mL Estimated urine output: Refer to surgical log Specimen(s): * No specimens in log * Implant(s): Implant Name Type Inv. Item Serial No. Underwriter Mortgage Loan Lot No. LRB No. Used Action HEMOSTAT 4 X 8IN SURGICEL - SN/A HEMOSTAT 4 X 8IN SURGICEL N/A ETHICON [id number] Implanted HEMOSTAT 2 X 4IN SURGICEL FIBRILLAR - SN/A HEMOSTAT 2 X 4IN SURGICEL FIBRILLAR N/A ETHICON [id number] 1 Implanted HEMOSTAT 8 X 12.5CM X 10MM SURGIFOAM GELATIN SPONGE - SN/A HEMOSTAT 8 X 12.5CM X 10MM SURGIFOAM GELATIN SPONGE N/A ETHICON [id number] 1 Implanted KIT 8ML MATRIX HEMOSTATIC W/THROMBIN SURGIFLO - SN/A KIT 8ML MATRIX HEMOSTATIC W/THROMBIN SURGIFLO N/A ETHICON [id number] 1 Implanted GENERATOR NEUROSTIMULATOR IMPLANTABLE XR5 PROCLAIM - [id number] GENERATOR NEUROSTIMULATOR IMPLANTABLE XR5 [id number] FRANK SC N/A 1 Implanted LEAD 60CM PENTA - [id number] LEAD 60CM PENTA [id number] [facility] FRANK SC N/A 1 Implanted Drain(s): * No LDAs found * Wound(s): Wound 08/24/22 Thoracic Spine (Active) Wound Closure Surgical Adhesive 08/08/22 0002 Wound 08/24/22 Flank Right;Posterior;Lower (Active) Wound Closure Surgical Adhesive 08/08/22 0002 Edgar Dhaliwal MD 08/24/2022 1:05 PM documented in this [id number] Consult note* Sulema Aguilera, PT - 08/25/2022 8:12 AM EDT Physical Therapy PHYSICAL THERAPY EVALUATION and TREATMENT NOTE Dx: Failed back syndrome Sx: T10 laminectomy, insertion dorsal permanent paddle spinal cord stimulator electrode, implantation of right flank IPG via separate Incision 08-24-22 PHYSICAL THERAPY EVALUATION Skilled Therapy Needs After Discharge Are Skilled Therapy Services Needed After Discharge: No DME Recommendation: (pt already has 2ww and cane. Pt Denies need for shower bench) Rehab Potential: Good PT Caregiver Readiness Working toward discharge home: Yes PT Caregiver Training: Completed Who was trained?: (patient) Provided training for: Bed mobility - follow up required, Transfers - completed, Gait / locomotion-completed, Assistive device use - completed, Stair climbing - completed, Precautions - follow up required Caregiver response to training: Verbalizes understanding, Returns demonstration Outcomes Measures Prior Function - Basic Mobility Raw Score: 24 Points Prior Function - Basic Mobility % Impaired: 0% AM-PAC Basic Mobility Raw Score: 18 Points AM-PAC Basic Mobility % Impaired: 40.47% Physical Therapy Assessment History: The following factors influence the patient's participation in the PT plan of care: Personal Factors: None Environmental Factors: Multi-level home, Bedroom/bathroom on 2nd floor, Steps to enter home, Lives alone The following co-morbidities (from this admission or prior) influence the patient's participation in this plan of care: See H & P Number of History elements affecting this patient's PT plan of care: 1 to 2 Examination of Body Systems: The patient presents with: Musculoskeletal impairments: Pain Integumentary Impairments: Active Wound. These impairments result in limitations of Gait, Functional Transfers, Stair-Climbing. These impairments result in restrictions of Household mobility, Community mobility, Work-related activities, Leisure activities. Number of Body Systems elements affecting this patient's PT plan of care: 1 to 2. Clinical Presentation: The patient's clinical presentation for this PT evaluation is with stable and/or uncomplicated characteristics as evidenced by current PT documentation. Activity Tolerance Activity Tolerance: Endurance does not limit participation in activity Therapy Precautions Orthotic Devices: No Weight Bearing Status: WFL (within limits of back precautions) General Rehab Precautions: Fall risk, Back Balance Assessment Sitting Balance - Static: Modified independent, with bilateral UE support, with back unsupported Standing Balance - Static: Stand by assist, without UE support Search Engine Marketing Manager - Standing Static: (no device) Standing Balance - Dynamic: Stand by assist, Contact guard assist, without UE support Search Engine Marketing Manager - Standing Dynamic: (no device) Loss of Balance- Standing Dynamic: (no lob; decreased gait speed without use of device) Bed Mobility Rolling: Stand by assist, Head of bed flat Supine to Sit: Stand by assist, Head of bed flat (via logroll) Sit to Supine: (NT; pt up in chair post PT session) Search Engine Marketing Manager: (none) Transfers Sit to Stand: Stand by assist, Contact guard assist Bed to Chair: Stand by assist Stand Pivot Transfers: Stand by assist, Contact guard assist Search Engine Marketing Manager: BUE Gait/Locomotion Gait Assistance: Stand by assist Assistive Device: BUE, wheeled walker Distance: 120 Feet Additional Gait Trial 2: Yes Gait Assistance Trial 2: Stand by assist, Contact guard assist Assistive Device Trial 2: (no device) Distance Trial 2: 120 Pattern: step through, R decreased step length, L decreased step length (decrease gait speed without use of device. No LOB noted with or without use of device.) Weight Bearing Status: able to maintain Gait Loss(es) of Balance: (no LOB with use of 2ww or without use of device) Environment/Terrain: open/community environment, multiple distractions Stair Management Technique: one rail R, step-to pattern, forwards Stair Management Assistance: Stand by assist Number of Stairs: 10 Home Living Obtained Home Living and PLOF info from: Patient Lives With: Alone Type of Home: House Home Layout: Two level, Full bath on main level, Full bath on second level, Bed on second level, Stairs between floors (laundry on main) Rails on inside stairs: 1 rail Number of stairs inside home: (6 + landing+ 9 steps) Steps to enter home: Yes Rails to enter home: 1 rail Number of stairs to enter home: 4 Bathroom Shower/Tub: (club foot tub with shower attachment on main floor. Walk in shower on 2nd floor but currently leaking and unusable.) Bathroom Toilet: (Raised on 2nd floor, Low on main floor but has riser with cande handles) Bathroom Equipment: Toilet seat water pumping station engineer Mobility Equipment: Wheeled walker, Cane Additional Objective Details - Home Living: family lives within close vicinity of patient and willing to assist with pt needs after discharge Prior Level of Function Level of [place] - Transfers/Ambulation/Mobility: Independent with functional transfers, Independent with household ambulation, Independent with community ambulation (with intermittant use of 2ww or cane for ambulation due to pain) Level of [place] - ADLs: Independent Level of [place] - Homemaking: Independent Driving: Patient drives Vocational: (medical leave for last year from [employer]) PHYSICAL THERAPY TREATMENT NOTE Total Treatment Time (Total Session Time): 35 Minutes Total Timed Code Treatment Minutes: 15 Minutes Gait Training Skilled Intervention Provided: patient education, verbal cues, monitoring patient response with activity, blocked practice/skill repetition For: efficient movement, energy conservation techniques, fall prevention, self- monitoring during activity, stairs sequence/technique Resulting in: improved activity tolerance, improved adherence to precautions, improved performance,improved safety, increased upright tolerance for functional tasks, decreased assistance required Therapeutic Activities Bed Mobility Skilled Intervention Provided: patient education, verbal cues, monitoring patient response with activity, monitoring patient response with positional changes, provided step by step instructions For: LE management, UE management, UE positioning, compensatory strategies, logroll technique, fallprevention, efficient movement, necessary precautions, safety during functional tasks, self-monitoring during activity, sequencing of movement, weight shifting Resulting in: improved activity tolerance, improved adherence to precautions, improved functional independence, improved performance, improved safety Transfers Skilled Intervention Provided: patient education, verbal cues, monitoring patient response with activity, monitoring patient response with positional changes For: UE positioning, fall prevention, safety during functional tasks, self- monitoring during activity Resulting in: improved activity tolerance, improved balance, improved functional independence, improved performance, improved safety Additional Treatment Details Pt reports 7/10 pain at rest in bed and with repositioning in bed. With ambulation, pt reports decrease in back pain to 2/10. 4/10 back pain with sitting in straight back chair. Educated patient on back precautions and logroll for bed mobiltiy with pt verbalizing and demonstrating understanding. Ptreports shower bench will not fit claw tub and pt reports that she will have family present for safety of transfers inout of shower after discharge. Patient educated on home safety, fall prevention, energy conservation, back precautions, need for slow transitional movements and directional changes to decrease fall risk, safe/ proper use of assistive device, proper hand placement for transfer safety , proper and safe mobility through verbal instruction and demonstration. Pt educated on need for patient to use call light to notify staff to assist with all functional transfers/mobility to maximize safety and decrease risk for falls. Patient educated on purpose, plan and goals for skilled PT services and initiation of discharge planning. Calllight within patients reach. Nursing notified that patient can be up with nursing in chair/ BR withsba with or without device ( pt preference due to pain) . Break away alarm on post PT evaluation. Pt verbalized and demonstrated understanding of education and denies questions at this time. Will continue to progress pt per POC. Past Medical History: Diagnosis Date Anxiety Back pain CHF (congestive heart failure) (HCC) Hypertension Seasonal allergies Systolic heart failure (HCC) Past Surgical History: Procedure Laterality Date CARDIAC CATHETERIZATION N/A 08/23/2021 Procedure: Coronary Angiogram; Surgeon: Rios Verduzco MD; Location: [facility] HEAT TREAT TECHNICIAN; Service: Cardiovascular CARDIAC CATHETERIZATION N/A 08/23/2021 Procedure: Left Ventriculogram; Surgeon: Rios Verduzco MD; Location: [facility]; Service: Cardiovascular CERVICAL ABLATION W/ LASER 1997 LEFT HEART CATH N/A 08/23/2021 Procedure: Left Heart Cath; Surgeon: Rios Verduzco MD; Location: [facility] HEAT TREAT TECHNICIAN; Service: Cardiovascular HEMORRHOIDECTOMY 1997 LAMINECTOMY DECOMPRESSION MINIMALLY INVASIVE SINGLE LEVEL N/A 01/13/2022 Procedure: Right L2-3 Minimally Invasive Hemilaminectomy, Foraminotomy, and Discectomy; Surgeon: Edgar Dhaliwal MD; Location: [facility] OR; Service: Neurological ORTHOPEDIC SURGERY 1 on Left foot, 2 on Right foot - last in 2001 POLYPECTOMY 1991 Throat polypectomy SPINAL CORD STIMULATOR PERMANENT Bilateral 08/24/2022 Procedure: Thoracic 10-11 Laminectomy, Insertion of Permanent Spinal Cord Stimulator Electrodes andInsertion of Right Flank Implantable Pulse Generator.; Surgeon: Edgar Dhaliwal MD; Location: [facility]; Service: Neurological SPINAL CORD STIMULATOR TEMPORARY Bilateral 08/01/2022 Procedure: Bilateral Insertion Trial Spinal Cord Stimulator via Fluoroscopic T12-L2 Approach; Surgeon: Edgar Dhaliwal MD; Location: [facility]; Service: Neurological For complete objective data, detailed plan of care and patient education refer to: PT Evaluation flowsheet, PT Evaluation and Treatment flowsheet, PT Treatment flowsheet, patient Plan of Care, Plan of Care progress note, and Patient Education. This note stands as the current Discharge Summary upon patient discharge from the hospital or completion of Physical Therapy Plan. [id number] Consult note* Sulema Aguilera, PT - 08/25/2022 8:12 AM EDT Physical Therapy PHYSICAL THERAPY EVALUATION and TREATMENT NOTE Dx: Failed back syndrome Sx: T10 laminectomy, insertion dorsal permanent paddle spinal cord stimulator electrode, implantation of right flank IPG via separate Incision 08-24-22 PHYSICAL THERAPY EVALUATION Skilled Therapy Needs After Discharge Are Skilled Therapy Services Needed After Discharge: No DME Recommendation: (pt already has 2ww and cane. Pt Denies need for shower bench) Rehab Potential: Good PT Caregiver Readiness Working toward discharge home: Yes PT Caregiver Training: Completed Who was trained?: (patient) Provided training for: Bed mobility - follow up required, Transfers - completed, Gait / locomotion-completed, Assistive device use - completed, Stair climbing - completed, Precautions - follow up required Caregiver response to training: Verbalizes understanding, Returns demonstration Outcomes Measures Prior Function - Basic Mobility Raw Score: 24 Points Prior Function - Basic Mobility % Impaired: 0% AM-PAC Basic Mobility Raw Score: 18 Points AM-PAC Basic Mobility % Impaired: 40.47% Physical Therapy Assessment History: The following factors influence the patient's participation in the PT plan of care: Personal Factors: None Environmental Factors: Multi-level home, Bedroom/bathroom on 2nd floor, Steps to enter home, Lives alone The following co-morbidities (from this admission or prior) influence the patient's participation in this plan of care: See H & P Number of History elements affecting this patient's PT plan of care: 1 to 2 Examination of Body Systems: The patient presents with: Musculoskeletal impairments: Pain Integumentary Impairments: Active Wound. These impairments result in limitations of Gait, Functional Transfers, Stair-Climbing. These impairments result in restrictions of Household mobility, Community mobility, Work-related activities, Leisure activities. Number of Body Systems elements affecting this patient's PT plan of care: 1 to 2. Clinical Presentation: The patient's clinical presentation for this PT evaluation is with stable and/or uncomplicated characteristics as evidenced by current PT documentation. Activity Tolerance Activity Tolerance: Endurance does not limit participation in activity Therapy Precautions Orthotic Devices: No Weight Bearing Status: WFL (within limits of back precautions) General Rehab Precautions: Fall risk, Back Balance Assessment Sitting Balance - Static: Modified independent, with bilateral UE support, with back unsupported Standing Balance - Static: Stand by assist, without UE support Search Engine Marketing Manager - Standing Static: (no device) Standing Balance - Dynamic: Stand by assist, Contact guard assist, without UE support Search Engine Marketing Manager - Standing Dynamic: (no device) Loss of Balance- Standing Dynamic: (no lob; decreased gait speed without use of device) Bed Mobility Rolling: Stand by assist, Head of bed flat Supine to Sit: Stand by assist, Head of bed flat (via logroll) Sit to Supine: (NT; pt up in chair post PT session) Search Engine Marketing Manager: (none) Transfers Sit to Stand: Stand by assist, Contact guard assist Bed to Chair: Stand by assist Stand Pivot Transfers: Stand by assist, Contact guard assist Search Engine Marketing Manager: BUE Gait/Locomotion Gait Assistance: Stand by assist Assistive Device: BUE, wheeled walker Distance: 120 Feet Additional Gait Trial 2: Yes Gait Assistance Trial 2: Stand by assist, Contact guard assist Assistive Device Trial 2: (no device) Distance Trial 2: 120 Pattern: step through, R decreased step length, L decreased step length (decrease gait speed without use of device. No LOB noted with or without use of device.) Weight Bearing Status: able to maintain Gait Loss(es) of Balance: (no LOB with use of 2ww or without use of device) Environment/Terrain: open/community environment, multiple distractions Stair Management Technique: one rail R, step-to pattern, forwards Stair Management Assistance: Stand by assist Number of Stairs: 10 Home Living Obtained Home Living and PLOF info from: Patient Lives With: Alone Type of Home: House Home Layout: Two level, Full bath on main level, Full bath on second level, Bed on second level, Stairs between floors (laundry on main) Rails on inside stairs: 1 rail Number of stairs inside home: (6 + landing+ 9 steps) Steps to enter home: Yes Rails to enter home: 1 rail Number of stairs to enter home: 4 Bathroom Shower/Tub: (club foot tub with shower attachment on main floor. Walk in shower on 2nd floor but currently leaking and unusable.) Bathroom Toilet: (Raised on 2nd floor, Low on main floor but has riser with cande handles) Bathroom Equipment: Toilet seat water pumping station engineer Mobility Equipment: Wheeled walker, Cane Additional Objective Details - Home Living: family lives within close vicinity of patient and willing to assist with pt needs after discharge Prior Level of Function Level of [place] - Transfers/Ambulation/Mobility: Independent with functional transfers, Independent with household ambulation, Independent with community ambulation (with intermittant use of 2ww or cane for ambulation due to pain) Level of [place] - ADLs: Independent Level of [place] - Homemaking: Independent Driving: Patient drives Vocational: (medical leave for last year from [employer]) PHYSICAL THERAPY TREATMENT NOTE Total Treatment Time (Total Session Time): 35 Minutes Total Timed Code Treatment Minutes: 15 Minutes Gait Training Skilled Intervention Provided: patient education, verbal cues, monitoring patient response with activity, blocked practice/skill repetition For: efficient movement, energy conservation techniques, fall prevention, self- monitoring during activity, stairs sequence/technique Resulting in: improved activity tolerance, improved adherence to precautions, improved performance,improved safety, increased upright tolerance for functional tasks, decreased assistance required Therapeutic Activities Bed Mobility Skilled Intervention Provided: patient education, verbal cues, monitoring patient response with activity, monitoring patient response with positional changes, provided step by step instructions For: LE management, UE management, UE positioning, compensatory strategies, logroll technique, fallprevention, efficient movement, necessary precautions, safety during functional tasks, self-monitoring during activity, sequencing of movement, weight shifting Resulting in: improved activity tolerance, improved adherence to precautions, improved functional independence, improved performance, improved safety Transfers Skilled Intervention Provided: patient education, verbal cues, monitoring patient response with activity, monitoring patient response with positional changes For: UE positioning, fall prevention, safety during functional tasks, self- monitoring during activity Resulting in: improved activity tolerance, improved balance, improved functional independence, improved performance, improved safety Additional Treatment Details Pt reports 7/10 pain at rest in bed and with repositioning in bed. With ambulation, pt reports decrease in back pain to 2/10. 4/10 back pain with sitting in straight back chair. Educated patient on back precautions and logroll for bed mobiltiy with pt verbalizing and demonstrating understanding. Ptreports shower bench will not fit claw tub and pt reports that she will have family present for safety of transfers inout of shower after discharge. Patient educated on home safety, fall prevention, energy conservation, back precautions, need for slow transitional movements and directional changes to decrease fall risk, safe/ proper use of assistive device, proper hand placement for transfer safety , proper and safe mobility through verbal instruction and demonstration. Pt educated on need for patient to use call light to notify staff to assist with all functional transfers/mobility to maximize safety and decrease risk for falls. Patient educated on purpose, plan and goals for skilled PT services and initiation of discharge planning. Calllight within patients reach. Nursing notified that patient can be up with nursing in chair/ BR withsba with or without device ( pt preference due to pain) . Break away alarm on post PT evaluation. Pt verbalized and demonstrated understanding of education and denies questions at this time. Will continue to progress pt per POC. Past Medical History: Diagnosis Date Anxiety Back pain CHF (congestive heart failure) (HCC) Hypertension Seasonal allergies Systolic heart failure (HCC) Past Surgical History: Procedure Laterality Date CARDIAC CATHETERIZATION N/A 08/23/2021 Procedure: Coronary Angiogram; Surgeon: Rios Verduzco MD; Location: [facility] HEAT TREAT TECHNICIAN; Service: Cardiovascular CARDIAC CATHETERIZATION N/A 08/23/2021 Procedure: Left Ventriculogram; Surgeon: Rios Verduzco MD; Location: [facility] HEAT TREAT TECHNICIAN; Service: Cardiovascular CERVICAL ABLATION W/ LASER 1997 HC LEFT HEART CATH N/A 08/23/2021 Procedure: Left Heart Cath; Surgeon: Rios Verduzco MD; Location: [facility] HEAT TREAT TECHNICIAN; Service: Cardiovascular HEMORRHOIDECTOMY 1997 LAMINECTOMY DECOMPRESSION MINIMALLY INVASIVE SINGLE LEVEL N/A 01/13/2022 Procedure: Right L2-3 Minimally Invasive Hemilaminectomy, Foraminotomy, and Discectomy; Surgeon: Edgar Dhaliwal MD; Location: [facility] OR; Service: Neurological ORTHOPEDIC SURGERY 1 on Left foot, 2 on Right foot - last in 2001 POLYPECTOMY 1991 Throat polypectomy SPINAL CORD STIMULATOR PERMANENT Bilateral 08/24/2022 Procedure: Thoracic 10-11 Laminectomy, Insertion of Permanent Spinal Cord Stimulator Electrodes andInsertion of Right Flank Implantable Pulse Generator.; Surgeon: Edgar Dhaliwal MD; Location: [facility] OR; Service: Neurological SPINAL CORD STIMULATOR TEMPORARY Bilateral 08/01/2022 Procedure: Bilateral Insertion Trial Spinal Cord Stimulator via Fluoroscopic T12-L2 Approach; Surgeon: Edgar Dhaliwal MD; Location: [facility] OR; Service: Neurological For complete objective data, detailed plan of care and patient education refer to: PT Evaluation flowsheet, PT Evaluation and Treatment flowsheet, PT Treatment flowsheet, patient Plan of Care, Plan of Care progress note, and Patient Education. This note stands as the current Discharge Summary upon patient discharge from the hospital or completion of Physical Therapy Plan. 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 Disciplines: PT Goal: PT- sit to stand transfer Dates: Start: 08/25/22 Expected End: 08/30/22 Description: PT - Patient will perform sit to/from stand transfer with modified independence to improve functional mobility and safety. Disciplines: PT Goal: PT- stand-pivot transfer Dates: Start: 08/25/22 Expected End: 08/30/22 Description: PT - Patient will perform stand-pivot transfer with modified independence to improve functional mobility and safety. Disciplines: PT Goal: PT- ambulation Dates: Start: 08/25/22 Expected End: 08/30/22 Description: PT - Patient will ambulate 250 feet without device with modified independence to improve functional mobility and safety. Disciplines: PT Goal: PT- stair climbing Dates: Start: 08/25/22 Expected End: 08/30/22 Description: PT - Patient will ascend and descend 15 stairs with non-reciprocal technique with 1 rail with modified independence to improve functional mobility and safety. Disciplines: PT Intervention: Education, Assistive device training Frequency: PRN Dates: Start: 08/25/22 Intervention: Education, Bed mobility training Frequency: PRN Dates: Start: 08/25/22 Intervention: Education, Balance training Frequency: PRN Dates: Start: 08/25/22 Description: REMINDER(s): Reinforce education provided by Physical Therapy related to balance training. Intervention: Education, Gait training Frequency: PRN Dates: Start: 08/25/22 Intervention: Education, stair training Frequency: PRN Dates: Start: 08/25/22 Intervention: Education, Therapeutic exercise Frequency: PRN Dates: Start: 08/25/22 Intervention: Education, Transfer training Frequency: PRN Dates: Start: 08/25/22 Intervention: Education, Precautions Frequency: PRN Dates: Start: 08/25/22 Frequency of Treatment (times per week): Up to 3-5x wk This physical Therapy Plan of Care will be carried out until: 1.) The PT plan has been resolved or 2.) The patient is discharged from the acute care hospital Associated attestation - Edgar Dhaliwal MD - 08/25/2022 1:30 PM EDT I attest. [id number] Note* Plan of Care - Twin Akers RN - 08/24/2022 6:59 PM EDT Problem: Actual or potential alteration in health Goal: Absence of healthcare acquired conditions 08/24/20221858 by Twin Akers RN Outcome: Partially Met 08/24/20221855 by Twin Akers RN Outcome: Partially Met 08/24/20221750 by Twin Akers RN Outcome: Not Met Goal: Knowledge of Interdisciplinary Plan of Care 08/24/20221858 by Twin Akers RN Outcome: Partially Met 08/24/20221855 by Twin Akers RN Outcome: Partially Met 08/24/20221750 by Twin Akers RN Outcome: Not Met Goal: Knowledge of Enviroment 08/24/20221858 by Twin Akers RN Outcome: Partially Met 08/24/20221855 by Twin Akers RN Outcome: Partially Met 08/24/20221750 by Twin Akers RN Outcome: Not Met Problem: Pain Goal: Manage acute pain 08/24/20221858 by Twin Akers RN Outcome: Partially Met 08/24/2022 185 by Twin Akers RN Outcome: Partially Met 08/24/2022 175 by Twin Akers RN Outcome: Not Met Goal: Manage chronic pain 08/24/20221858 by Twin Akers RN Outcome: Partially Met 08/24/20221855 by Twin Akers RN Outcome: Partially Met 08/24/20221750 by Twin Akers RN Outcome: Not Met Goal: Reduced pain sensation 08/24/20221858 by Twin Akers RN Outcome: Partially Met 08/24/20221855 by Twin Akers RN Outcome: Partially Met 08/24/20221750 by Twin Akers RN Outcome: Not Met Goal: Achievement of comfort function goal 08/24/20221858 by Twin Akers RN Outcome: Partially Met 08/24/20221855 by Twin Akers RN Outcome: Partially Met 08/24/20221750 by Twin Akers RN Outcome: Not Met Problem: Pressure Ulcer - Risk of Goal: Absence of pressure ulcer 08/24/20221858 by Twin Akers RN Outcome: Partially Met 08/24/2022 185 by Twin Akers RN Outcome: Partially Met 08/24/20221750 by Twin Akers RN Outcome: Not Met [id number] Note* Plan of Care - Twin Akers RN - 08/24/2022 6:56 PM EDT Problem: Actual or potential alteration in health Goal: Absence of healthcare acquired conditions 08/24/2022 185 by Twin Akers RN Outcome: Partially Met 08/24/2022 175 by Twin Akers RN Outcome: Not Met Goal: Knowledge of Interdisciplinary Plan of Care 08/24/20221855 by Twin Akers RN Outcome: Partially Met 08/24/2022 175 by Twin Akers RN Outcome: Not Met Goal: Knowledge of Enviroment 08/24/20221855 by Twin Akers RN Outcome: Partially Met 08/24/2022 175 by Twin Akers RN Outcome: Not Met Problem: Pain Goal: Manage acute pain 08/24/20221855 by Twin Akers RN Outcome: Partially Met 08/24/2022 175 by Twin Akers RN Outcome: Not Met Goal: Manage chronic pain 08/24/20221855 by Twin Akers RN Outcome: Partially Met 08/24/2022 175 by Twin Akers RN Outcome: Not Met Goal: Reduced pain sensation 08/24/20221855 by Twin Akers RN Outcome: Partially Met 08/24/2022 175 by Twin Akers RN Outcome: Not Met Goal: Achievement of comfort function goal 08/24/20221855 by Twin Akers RN Outcome: Partially Met 08/24/2022 175 by Twin Akers RN Outcome: Not Met Problem: Pressure Ulcer - Risk of Goal: Absence of pressure ulcer 08/24/20221855 by Twin Akers RN Outcome: Partially Met 08/24/20221750 by Twin Akers RN Outcome: Not Met [id number] Note* Plan of Care - Twin Akers RN - 08/24/2022 5:51 PM EDT Problem: Actual or potential alteration in health Goal: Absence of healthcare acquired conditions Outcome: Not Met Goal: Knowledge of Interdisciplinary Plan of Care Outcome: Not Met Goal: Knowledge of Enviroment Outcome: Not Met Problem: Pain Goal: Manage acute pain Outcome: Not Met Goal: Manage chronic pain Outcome: Not Met Goal: Reduced pain sensation Outcome: Not Met Goal: Achievement of comfort function goal Outcome: Not Met Problem: Pressure Ulcer - Risk of Goal: Absence of pressure ulcer Outcome: Not Met [id number] Hospital Discharge instructions* Discharge Instructions* Estefania Malhotra RN - 08/24/2022 2:18 PM EDT GENERAL POST-OPERATIVE PATIENT INSTRUCTIONS ANESTHESIA PRECAUTIONS: A responsible adult must stay with you for at least 24 hours after surgery. You may feel light headed,, dizzy, or nauseated during this time. Do not operate a vehicle (car, bike, motorcycle, swimming instructor) machinery or power tools. Do not make any important decisions or drink any alcoholic beverages for 24 hours. Children should remain quiet today. No riding of bicycles, motorcycles, skateboards, playing on swings etc. Drink plenty of fluids today. Eat light, small, frequent meals today. Resume regular diet tomorrow. FOLLOW-UP: Please make an appointment with your physician for follow-up. Call your physician immediately if you have any fevers greater than 101, drainage from your wound that is not clear or looks infected, persistent bleeding, increasing abdominal pain, problems urinating, or persistent nausea/vomiting. DIET: You may eat any foods that you can tolerate. It is a good idea to eat a high fiber diet and take in plenty of fluids to prevent constipation. If you do become constipated you may want to take amild laxative or take ducolax tablets on a daily basis until your bowel habits are regular. Constipation can be very uncomfortable, along with straining, after recent surgery. ACTIVITY: You are encouraged to cough and deep breathe or use your incentive spirometer if you weregiven one, every 15-30 minutes when awake. This will help prevent respiratory complications and lowgrade fevers post-operatively if you had a general anesthetic. You are encouraged to walk and engage in light activity for the next two weeks. MEDICATIONS: Try to take narcotic medications and anti-inflammatory medications, such as ibuprofen,naprosyn, etc., with food. This will minimize stomach upset from the medication. Should you developnausea and vomiting from the pain medication, or develop a rash, please discontinue the medication and contact your physician. You should not drive, make important decisions, or operate machinery when taking narcotic pain medication. Do not take tylenol or tylenol products with narcotic medications. QUESTIONS: Please feel free to call your physician or the hospital tower loader operator if you have any questions, and they will be glad to assist you. documented in this [id number] Note* Op Note - Edgar Dhaliwal MD - 08/24/2022 1:44 PM EDT VERITO BRENNAN [facility] [id number] 1965 DATE 08/24/2022 OPERATIVE REPORT SURGEON EDGAR DHALIWAL MD PREOPERATIVE DIAGNOSIS 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 PROCEDURE T10 laminectomy, insertion dorsal permanent paddle spinal cord stimulator electrode, implantation of right flank IPG via separate incision. ANESTHESIA General. INDICATIONS Verito Brennan is a 57-year-old female suffering from failed back syndrome. She underwent a successful trial spinal cord stimulator implantation from 08/01/2021 through 08/04/2022. She now presents for permanent spinal cord stimulator implantation. PROCEDURE IN DETAIL The procedure was performed in OR #2. The patient was intubated and general anesthesia was established. An appropriate time-out was performed. Neurosurgery, anesthesiology and nursing teams all agreed with the patient's identity and planned procedure. After intubation and establishing general anesthesia, she was rolled in the prone position on the Seven spine frame taking care to pad all pressure points. She received 900 mg of clindamycin at the onset of the procedure for antibiotic prophylaxis. Fluoroscopy was used to identify the T10 pedicle level. The skin was marked and then the thoracic area and flank area were then prepped with alcohol and then ChloraPrep and draped in usual sterile fashion. The proposed incision sites were infiltrated with a total of 10 cc of a 1:1 mixture of 0.5% Marcaine plain and 1% lidocaine plain. A midline incision was made spanning the T10 level. Points were controlled with bipolar cautery. Monopolar cautery was then used to dissect down through a subperiosteal fashion through the thoracic dorsal fascia and to expose the spinous processes and lamina and medial facet joints at the T10 level. Self-retaining retractor was placed. The spinous process of T10 was resected. Next, a Midas-Andrez drill was then used to thin the lamina of T10. Various sizes of curettes and Kerrison rongeurs were then used to complete a T10 laminectomy. Bony edges were liberally waxed. Epidural fat was bipolar coagulated. Epidural space appeared normal in all respects. Next, a Penta spinal cord stimulator lead was passed without difficulty from a caudad to cephalad direction. Fluoroscopy was then used to final adjust the lead so that the superior aspect of the lead was at the superior T8 vertebral body level spanning T8 to the T9 vertebral body level which replicated the patient's successful trial stimulator electrode placement. [place] boots were applied to each of the lead wires and were cinched with 3-0 silk ties. [place] boot tie combination was then secured to the fascia with 2-0 silk tie. Next, a separate incision made in the right flank area with a 10 blade. Subcutaneous pocket was developed with Bovie cautery. Next, a tunneling trocar and straw was then passed from the thoracic incision to the IPG site and trocar removed. Leads were passed through the tunneling straw and the tunneling straw was then removed. A Proclaim IPG was brought on the field and the leads were inserted into the headers and the screws torque tightened to transmission line engineer's recommended tightness. The system was interrogated by a sales representative cash registers from [employer] and noted to be functioning normally in all respects. The IPG was secured to fascia in the pocket with 0 Vicryl. Both operative sites were irrigated with Irrisept. A total of 450 cc followed by 300 cc of saline evenly distributed between the two sites. Hemostasis was excellent at both sites. At no time was there any evidence of cerebrospinal fluid leakage. Small amounts of Floseal and thrombin-soaked Gelfoam were used for epidural hemostasis all of which was irrigated and removed out of the field by the end of the procedure. Next, the thoracic fascia was closed with multiple inverted interrupted 0 Vicryl sutures. The deep dermal layer at each of these sites was closed with inverted interrupted 2-0 Vicryl suture followed by closure of the skin of each of the sites with a 4-0 Monocryl subcuticular suture and closure of skin with Dermabond, Prineo and covered with Aquacel antibiotic dressing. The patient tolerated the procedure well. She was returned to the supine position, extubated and transferred to PACU in stable condition. MD Charmaine FUNK 08/24/2022 13:00 [id number] T 08/24/2022 13:38 [facility] [id number] Note* Brief Op Note - Edgar Dhaliwal MD - 08/24/2022 1:05 PM EDT Brief Post Operative Note Patient Name: Verito Brennan : 1965 (57 y.o.) Date of Service: 08/24/2022 [facility]: [id number] Procedure(s): Thoracic 10-11 Laminectomy, Insertion of Permanent Spinal Cord Stimulator Electrodes and Insertion of Right Flank Implantable Pulse Generator. 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 Item Serial No. Underwriter Mortgage Loan Lot No. LRB No. Used Action HEMOSTAT 4 X 8IN SURGICEL - SN/A HEMOSTAT 4 X 8IN SURGICEL N/A ETHICON [id number] 1 Implanted HEMOSTAT 2 X 4IN SURGICEL FIBRILLAR - SN/A HEMOSTAT 2 X 4IN SURGICEL FIBRILLAR N/A ETHICON [id number] 1 Implanted HEMOSTAT 8 X 12.5CM X 10MM SURGIFOAM GELATIN SPONGE - SN/A HEMOSTAT 8 X 12.5CM X 10MM SURGIFOAM GELATIN SPONGE N/A ETHICON [id number] 1 Implanted KIT 8ML MATRIX HEMOSTATIC W/THROMBIN SURGIFLO - SN/A KIT 8ML MATRIX HEMOSTATIC W/THROMBIN SURGIFLO N/A ETHICON [id number] 1 Implanted GENERATOR NEUROSTIMULATOR IMPLANTABLE XR5 PROCLAIM - [id number] GENERATOR NEUROSTIMULATOR IMPLANTABLE XR5 PRO[address] [id number] [address] FRANK SC N/A 1 Implanted LEAD 60CM PENTA - [id number] LEAD 60CM PENTA [id number] ST FRANK SC N/A 1 Implanted Drain(s): * No LDAs found * Wound(s): Wound 08/24/22 Thoracic Spine (Active) Wound Closure Surgical Adhesive 08/08/22 0002 Wound 08/24/22 Flank Right;Posterior;Lower (Active) Wound Closure Surgical Adhesive 08/08/22 0002 Edgar Dhaliwal MD 08/24/2022 1:05 PM [id number] Attending History and physical note* Edgar Dhaliwal MD - 08/24/2022 10:29 AM EDT INTERVAL HISTORY AND PHYSICAL Patient Name: Verito Brennan Admit Date: [id number] MR #: [id number] : 1965 The H&P has been reviewed and the patient has been examined. I concur with the findings of the H&P. There are no significant changes. It is appropriate to proceed with the planned procedure. Edgar Dhaliwal MD 08/24/2022 10:29 AM Source Note - Edgar Dhaliwal MD - 08/24/2022 10:26 AM EDT Neurosurgical preoperative history and physical for procedure of 08/24/2022 Chief complaint. Failed back syndrome. VICENTE Brennan is a 57-year-old female with failed back syndrome. She returned on June 28, 2022to clinic to discuss results of her scoliosis series of 05/31/2022. I have independently reviewed the studies on a computerized workstation, my interpretation follows. The patient has a levoscoliosis of 13 degrees centered from L1-L4. She has 15 mm of SVA. Lumbar lordosis is only 17 degrees with thenormal range of 31-50. She is status post on 01/13/2022 a right L2-L3 MIS discectomy. She did also have a low ejection fraction due to cardiomyopathy as well as multifocal chronic ischemic heart disease, but the has shown improvement in her ejection fraction from 38% to 55% on a recent cardiac cath. She has significant pain in her axial lumbar spine left side greater than right, paraspinal that radiates into the bilateral hips and the IT band areas bilaterally whenever she ambulates. She statesshe cannot ambulate more than 1 block before she has significant severe pain that stops her or limits her. She also is very depressed because she cannot do any yard work as a result of the pain. On 08/01/2022 she underwent a trial spinal cord stimulator electrode implantation with the most superior aspect of the electrodes at the T8 level. She had 70% relief of her axial lumbar pain and her leg pain with this trial, and on 08/04/2022 her leads were removed and she indicated she wished to proceed with permanent spinal cord stimulator electrode implantation. Past medical history. Cardiomyopathy hypertension ischemic heart disease. Medications reviewed in MAY. Allergies to penicillin and prednisone. Family medical history is negative for known familial neuropathy. Review of Systems Cardiomyopathy. Ischemic heart disease. Hypertension. Scoliosis. Tobaccoism. No recent COVID-19 symptoms. No fever chills night sweats. Psychosocial review. The patient lives in the region with family. Physical Exam Awake alert oriented pleasant female who at times is tearful because of the emotional stress of herpain syndrome. She has diffuse tenderness palpation over lumbosacral area especially at the L4-L5 area and L5-S1 area left side greater than right. She has no significant pain to palpation of the L2-L3 area. Her lumbar L2-L3 incisions clean flat and dry with no pseudomeningocele or erythema. There is no rash of the skin. Straight leg raising is positive bilaterally at 45 degrees of iliopsoas flexion cause buttock pain. Her gait is mildly broad- based and antalgic. Lungs are clear. Cardiac exam feels regular rate and rhythm. There is no jugular venous distention. There is no pretibial edema. Deep tendon reflexes at the patella and Achilles unobtainable. Speech is fluent. Recent and remote memory is intact. Emotional content is appropriate for circumstances. She has full range of motion the head and neck. No wheezing is noted to the lung queen. No rash over the lower extremities. No pedal or pretibial edema. No jugular venous distention. She has normal healing of the puncture sites from the percutaneous trial spinal cord leads. Impression Failed back syndrome, scoliosis, status post L2-L3 discectomy, chronic axial lumbosacral pain that limits her daily activities. Plan Verito now wishes to proceed with permanent spinal cord stimulator system implantation via T11 laminectomy, and right flank IPG implantation. She understands risk of the procedure including but not limited to epidural hematoma CSF leak, infection, temporary or permanent neurologic disability, spinal cord injury, failure of the device, and need for revision of the device in the future, incomplete pain relief and she wishes to proceed. Informed consent obtained. Edgar Dhaliwal MD [id number] History and physical note* Edgar Dhaliwal MD - 08/24/2022 10:29 AM EDT INTERVAL HISTORY AND PHYSICAL Patient Name: Verito Brennan Admit Date: [id number] MR #: [id number] : 1965 The H&P has been reviewed and the patient has been examined. I concur with the findings of the H&P. There are no significant changes. It is appropriate to proceed with the planned procedure. Edgar Dhaliwal MD 08/24/2022 10:29 AM Source Note - Isra Edgar Coronado MD - 08/24/2022 10:26 AM EDT Neurosurgical preoperative history and physical for procedure of 08/24/2022 Chief complaint. Failed back syndrome. VICENTE Brennan is a 57-year-old female with failed back syndrome. She returned on June 28, 2022to clinic to discuss results of her scoliosis series of 05/31/2022. I have independently reviewed the studies on a computerized workstation, my interpretation follows. The patient has a levoscoliosis of 13 degrees centered from L1-L4. She has 15 mm of SVA. Lumbar lordosis is only 17 degrees with thenormal range of 31-50. She is status post on 01/13/2022 a right L2-L3 MIS discectomy. She did also have a low ejection fraction due to cardiomyopathy as well as multifocal chronic ischemic heart disease, but the has shown improvement in her ejection fraction from 38% to 55% on a recent cardiac cath. She has significant pain in her axial lumbar spine left side greater than right, paraspinal that radiates into the bilateral hips and the IT band areas bilaterally whenever she ambulates. She statesshe cannot ambulate more than 1 block before she has significant severe pain that stops her or limits her. She also is very depressed because she cannot do any yard work as a result of the pain. On 08/01/2022 she underwent a trial spinal cord stimulator electrode implantation with the most superior aspect of the electrodes at the T8 level. She had 70% relief of her axial lumbar pain and her leg pain with this trial, and on 08/04/2022 her leads were removed and she indicated she wished to proceed with permanent spinal cord stimulator electrode implantation. Past medical history. Cardiomyopathy hypertension ischemic heart disease. Medications reviewed in MAY. Allergies to penicillin and prednisone. Family medical history is negative for known familial neuropathy. Review of Systems Cardiomyopathy. Ischemic heart disease. Hypertension. Scoliosis. Tobaccoism. No recent COVID-19 symptoms. No fever chills night sweats. Psychosocial review. The patient lives in the region with family. Physical Exam Awake alert oriented pleasant female who at times is tearful because of the emotional stress of herpain syndrome. She has diffuse tenderness palpation over lumbosacral area especially at the L4-L5 area and L5-S1 area left side greater than right. She has no significant pain to palpation of the L2-L3 area. Her lumbar L2-L3 incisions clean flat and dry with no pseudomeningocele or erythema. There is no rash of the skin. Straight leg raising is positive bilaterally at 45 degrees of iliopsoas flexion cause buttock pain. Her gait is mildly broad- based and antalgic. Lungs are clear. Cardiac exam feels regular rate and rhythm. There is no jugular venous distention. There is no pretibial edema. Deep tendon reflexes at the patella and Achilles unobtainable. Speech is fluent. Recent and remote memory is intact. Emotional content is appropriate for circumstances. She has full range of motion the head and neck. No wheezing is noted to the lung queen. No rash over the lower extremities. No pedal or pretibial edema. No jugular venous distention. She has normal healing of the puncture sites from the percutaneous trial spinal cord leads. Impression Failed back syndrome, scoliosis, status post L2-L3 discectomy, chronic axial lumbosacral pain that limits her daily activities. Minerva Sellers now wishes to proceed with permanent spinal cord stimulator system implantation via T11 laminectomy, and right flank IPG implantation. She understands risk of the procedure including but not limited to epidural hematoma CSF leak, infection, temporary or permanent neurologic disability, spinal cord injury, failure of the device, and need for revision of the device in the future, incomplete pain relief and she wishes to proceed. Informed consent obtained. Edgar Dhaliwal MD * Edgar Dhaliwal MD - 08/24/2022 10:26 AM EDT Neurosurgical preoperative history and physical for procedure of 08/24/2022 Chief complaint. Failed back syndrome. VICENTE Brennan is a 57-year-old female with failed back syndrome. She returned on June 28, 2022to clinic to discuss results of her scoliosis series of 05/31/2022. I have independently reviewed the studies on a computerized workstation, my interpretation follows. The patient has a levoscoliosis of 13 degrees centered from L1-L4. She has 15 mm of SVA. Lumbar lordosis is only 17 degrees with thenormal range of 31-50. She is status post on 01/13/2022 a right L2-L3 MIS discectomy. She did also have a low ejection fraction due to cardiomyopathy as well as multifocal chronic ischemic heart disease, but the has shown improvement in her ejection fraction from 38% to 55% on a recent cardiac cath. She has significant pain in her axial lumbar spine left side greater than right, paraspinal that radiates into the bilateral hips and the IT band areas bilaterally whenever she ambulates. She statesshe cannot ambulate more than 1 block before she has significant severe pain that stops her or limits her. She also is very depressed because she cannot do any yard work as a result of the pain. On 08/01/2022 she underwent a trial spinal cord stimulator electrode implantation with the most superior aspect of the electrodes at the T8 level. She had 70% relief of her axial lumbar pain and her leg pain with this trial, and on 08/04/2022 her leads were removed and she indicated she wished to proceed with permanent spinal cord stimulator electrode implantation. Past medical history. Cardiomyopathy hypertension ischemic heart disease. Medications reviewed in MAY. Allergies to penicillin and prednisone. Family medical history is negative for known familial neuropathy. Review of Systems Cardiomyopathy. Ischemic heart disease. Hypertension. Scoliosis. Tobaccoism. No recent COVID-19 symptoms. No fever chills night sweats. Psychosocial review. The patient lives in the region with family. Physical Exam Awake alert oriented pleasant female who at times is tearful because of the emotional stress of herpain syndrome. She has diffuse tenderness palpation over lumbosacral area especially at the L4-L5 area and L5-S1 area left side greater than right. She has no significant pain to palpation of the L2-L3 area. Her lumbar L2-L3 incisions clean flat and dry with no pseudomeningocele or erythema. There is no rash of the skin. Straight leg raising is positive bilaterally at 45 degrees of iliopsoas flexion cause buttock pain. Her gait is mildly broad- based and antalgic. Lungs are clear. Cardiac exam feels regular rate and rhythm. There is no jugular venous distention. There is no pretibial edema. Deep tendon reflexes at the patella and Achilles unobtainable. Speech is fluent. Recent and remote memory is intact. Emotional content is appropriate for circumstances. She has full range of motion the head and neck. No wheezing is noted to the lung queen. No rash over the lower extremities. No pedal or pretibial edema. No jugular venous distention. She has normal healing of the puncture sites from the percutaneous trial spinal cord leads. Impression Failed back syndrome, scoliosis, status post L2-L3 discectomy, chronic axial lumbosacral pain that limits her daily activities. Minerva Sellers now wishes to proceed with permanent spinal cord stimulator system implantation via T11 laminectomy, and right flank IPG implantation. She understands risk of the procedure including but not limited to epidural hematoma CSF leak, infection, temporary or permanent neurologic disability, spinal cord injury, failure of the device, and need for revision of the device in the future, incomplete pain relief and she wishes to proceed. Informed consent obtained. Edgar Dhaliwal MD documented in this [id number] History and physical note* Edgar Dhaliwal MD - 08/24/2022 10:26 AM EDT Neurosurgical preoperative history and physical for procedure of 08/24/2022 Chief complaint. Failed back syndrome. HPI Verito Brennan is a 57-year-old female with failed back syndrome. She returned on June 28, 2022to clinic to discuss results of her scoliosis series of 05/31/2022. I have independently reviewed the studies on a computerized workstation, my interpretation follows. The patient has a levoscoliosis of 13 degrees centered from L1-L4. She has 15 mm of SVA. Lumbar lordosis is only 17 degrees with thenormal range of 31-50. She is status post on 01/13/2022 a right L2-L3 MIS discectomy. She did also have a low ejection fraction due to cardiomyopathy as well as multifocal chronic ischemic heart disease, but the has shown improvement in her ejection fraction from 38% to 55% on a recent cardiac cath. She has significant pain in her axial lumbar spine left side greater than right, paraspinal that radiates into the bilateral hips and the IT band areas bilaterally whenever she ambulates. She statesshe cannot ambulate more than 1 block before she has significant severe pain that stops her or limits her. She also is very depressed because she cannot do any yard work as a result of the pain. On 08/01/2022 she underwent a trial spinal cord stimulator electrode implantation with the most superior aspect of the electrodes at the T8 level. She had 70% relief of her axial lumbar pain and her leg pain with this trial, and on 08/04/2022 her leads were removed and she indicated she wished to proceed with permanent spinal cord stimulator electrode implantation. Past medical history. Cardiomyopathy hypertension ischemic heart disease. Medications reviewed in MAY. Allergies to penicillin and prednisone. Family medical history is negative for known familial neuropathy. Review of Systems Cardiomyopathy. Ischemic heart disease. Hypertension. Scoliosis. Tobaccoism. No recent COVID-19 symptoms. No fever chills night sweats. Psychosocial review. The patient lives in the region with family. Physical Exam Awake alert oriented pleasant female who at times is tearful because of the emotional stress of herpain syndrome. She has diffuse tenderness palpation over lumbosacral area especially at the L4-L5 area and L5-S1 area left side greater than right. She has no significant pain to palpation of the L2-L3 area. Her lumbar L2-L3 incisions clean flat and dry with no pseudomeningocele or erythema. There is no rash of the skin. Straight leg raising is positive bilaterally at 45 degrees of iliopsoas flexion cause buttock pain. Her gait is mildly broad- based and antalgic. Lungs are clear. Cardiac exam feels regular rate and rhythm. There is no jugular venous distention. There is no pretibial edema. Deep tendon reflexes at the patella and Achilles unobtainable. Speech is fluent. Recent and remote memory is intact. Emotional content is appropriate for circumstances. She has full range of motion the head and neck. No wheezing is noted to the lung queen. No rash over the lower extremities. No pedal or pretibial edema. No jugular venous distention. She has normal healing of the puncture sites from the percutaneous trial spinal cord leads. Impression Failed back syndrome, scoliosis, status post L2-L3 discectomy, chronic axial lumbosacral pain that limits her daily activities. Plan Verito now wishes to proceed with permanent spinal cord stimulator system implantation via T11 laminectomy, and right flank IPG implantation. She understands risk of the procedure including but not limited to epidural hematoma CSF leak, infection, temporary or permanent neurologic disability, spinal cord injury, failure of the device, and need for revision of the device in the future, incomplete pain relief and she wishes to proceed. Informed consent obtained. Edgar Dhaliwal MD [id number] History of Present illness Narrative* Dionna Corrigan CNP - 08/04/2022 12:00 PM EDT Verito Brennan is a 57 y.o. female who presents for a temporary spinal cord stimulator removal. Patient's history includes: lumbar disc herniation with radiculopathy, failed back syndrome, and HTN. She underwent a Procedure: Bilateral Insertion Trial Spinal Cord Stimulator via Fluoroscopic T12-L2 Approach 08/01/[address] Dhaliwal. Subjective: Pt presents for trial SCS lead pull today. 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 Pt states 70% reduction in pain in R leg, 70% reduction in back pain, improved sleep. Pt would like to proceed with permanent SCS. Pt denies [place], SCS site redness, swelling, discharge, pain, heat. Denies [place], vision changes, new weakness, pain, numbness, fevers, chills, or other concerning signs or symptoms. Objective: SCS was turned off, bandage was CDI, minimal sanguinous dry exudate on old bandage over incision site. No SCS site redness, swelling, discharge, pain, heat. Pt ambulates well. Pt is afebrile, temperature recorded at today's visit Assessment/Plan: With sterile technique, SCS leads removed without pain or complication, site cleansed with alcohol prep pad and covered with 4x4 gauze and tape. Pt tolerated well. Discussed with patient that NSX will be in contact with him/her to schedule permanent SCS surgery. Instructions -Neurosurgery team will be in contact to schedule permanent spinal cord stimulator. -Notify neurosurgery team or go to the nearest ED if you develop increased headache, or if you develop fevers, chills, new pain, numbness, weakness, vision changes or other concerning signs or symptoms. documented in this [id number] Instructions* Patient Instructions* Dionna Corrigan CNP - 08/04/2022 11:03 AM EDT Keep insertion sites clean and dry. If any redness, swelling, warmth, or drainage occur, please notify the office. * Attachments The following attachments cannot be sent through Care Everywhere. * Spinal Cord Stimulation: General Info (Northern Irish) documented in this [id number] History of Present illness Narrative* Delmy Goldman RN - 08/02/2022 3:13 PM EDT Patient presents today for trial SCS dressing check and to meet with Dayana from [place]. Dressing dry,intact, occlusive. No drainage noted. Patient states feeling much better, able to ambulate further.Still with soreness to right side but left is much better. Dayana here to program/adjust stimulator. Denies any other complaints. documented in this [id number] Nurse Note* Eunice Domínguez RN - 08/01/2022 10:[address] to set up SCS with patient [id number] Nurse Note* uEnice Domínguez RN - 08/01/2022 10:[address] [facility] rep [facility] to set up SCS with patient documented in this [id number] Hospital Discharge instructions * Discharge Instructions* Eunice Domínguez RN - 08/01/2022 10:14 AM EDT GENERAL POST-OPERATIVE PATIENT INSTRUCTIONS ANESTHESIA PRECAUTIONS: A responsible adult must stay with you for at least 24 hours after surgery. You may feel light headed,, dizzy, or nauseated during this time. Do not operate a vehicle (car, bike, motorcycle, swimming instructor) machinery or power tools. Do not make any important decisions or drink any alcoholic beverages for 24 hours. Children should remain quiet today. No riding of bicycles, motorcycles, skateboards, playing on swings etc. Drink plenty of fluids today. Eat light, small, frequent meals today. Resume regular diet tomorrow. FOLLOW-UP: Please make an appointment with your physician for follow-up. Call your physician immediately if you have any fevers greater than 101, drainage from your wound that is not clear or looks infected, persistent bleeding, increasing abdominal pain, problems urinating, or persistent nausea/vomiting. DIET: You may eat any foods that you can tolerate. It is a good idea to eat a high fiber diet and take in plenty of fluids to prevent constipation. If you do become constipated you may want to take amild laxative or take ducolax tablets on a daily basis until your bowel habits are regular. Constipation can be very uncomfortable, along with straining, after recent surgery. ACTIVITY: You are encouraged to cough and deep breathe or use your incentive spirometer if you weregiven one, every 15-30 minutes when awake. This will help prevent respiratory complications and lowgrade fevers post-operatively if you had a general anesthetic. You are encouraged to walk and engage in light activity for the next two weeks. MEDICATIONS: Try to take narcotic medications and anti-inflammatory medications, such as ibuprofen,naprosyn, etc., with food. This will minimize stomach upset from the medication. Should you developnausea and vomiting from the pain medication, or develop a rash, please discontinue the medication and contact your physician. You should not drive, make important decisions, or operate machinery when taking narcotic pain medication. Do not take tylenol or tylenol products with narcotic medications. QUESTIONS: Please feel free to call your physician or the hospital tower loader operator if you have any questions, and they will be glad to assist you. * Attachments The following attachments cannot be sent through Care Everywhere. * Spinal Cord Stimulation: General Info (Northern Irish) documented in this [id number] Hospital course Narrative* Edgar Dhaliwal MD - 08/01/2022 9:54 AM EDT DISCHARGE SUMMARY Patient: Verito Brennan Date of : 1965 Site: [facility] Family Provider: Clair Dahl MD Admit Date: 08/01/2022 Discharge Date/Time: 08/01/22 Morning Disposition: Home Clinical Summary Hospital Course: Verito Brennan is a 57 y.o. female patient of Clair Dahl MD with a history of prior L2-3 discectomy, with failed back syndrome and axial lumbar pain radiating into the bilateral hips. On 07/05/2022 she underwent uneventful insertion of the bilateral trial spinal cord stim electrodes via percutaneous T12-L1 approach. Patient tolerated procedure well and was discharged home in good condition once discharge criteria are met in PACU. Discharge Diagnoses: Chronic heart failure. Failed back syndrome status post L2-3 discectomy. Surgeries: 08/01/22 Bilateral Insertion Trial Spinal Cord Stimulator via Fluoroscopic T12-L2 Approach Consults: No orders of the defined types were placed in this encounter. Allergies: Penicillins and Prednisone Discharge Diet: Resume home diet Condition: Good Discharge Medications: Discharge Medications New Medications Details ciprofloxacin HCl 500 MG tablet Commonly known as: CIPRO Take 1 (one) tablet (500 mg total) by mouth daily for 7 days . Quantity: 7 tablet Modified Medications Details metoprolol succinate 100 MG 24 hr tablet Commonly known as: TOPROL-XL Take 1 (one) tablet (100 mg total) by mouth daily . Quantity: 90 tablet Medications To Continue Details acetaminophen 500 MG tablet Commonly known as: TYLENOL Take 1 (one) tablet (500 mg total) by mouth every 6 (six) hours as needed for pain . ALPRAZolam 0.25 MG tablet Commonly known as: XANAX Take 1 (one) tablet (0.25 mg total) by mouth 3 (three) times a day as needed . atorvastatin 20 MG tablet Commonly known as: LIPITOR Take 1 (one) tablet (20 mg total) by mouth daily . Quantity: 90 tablet diphenhydrAMINE 25 mg tablet Commonly known as: BENADRYL Take 1 (one) tablet (25 mg total) by mouth nightly as needed for sleep . Entresto 24-26 mg per tablet Generic drug: sacubitriL-valsartan Take 1 (one) tablet by mouth 2 (two) times a day . Quantity: 180 tablet HYDROcodone-acetaminophen 5-325 mg per tablet Commonly known as: NORCO Take by mouth every 6 (six) hours . ibuprofen 800 MG tablet Commonly known as: ADVIL,MOTRIN Take 600 mg by mouth 3 (three) times a day as needed . loratadine 10 mg Tab 10 mg, pseudoePHEDrine 120 mg TbER 120 mg Take by mouth as needed . Stopped Medications aspirin 81 MG EC tablet Physician(s) Family Provider: Clair Dahl MD, Address: [address] [place] [address] Follow Up: No follow-up provider specified. Additional Information: Follow-up in neurosurgery clinic tomorrow for dressing change and reprogramming. Keep all dressings clean dry and intact. No tub bathing is hot tubs swimming or showering until discussed with clinic. Patient instructions, including activity, were given to the patient/family at discharge. Please seethe After Visit Summary in the electronic medical record for details. Time spent on discharge: < 30 minutes Completed by: Edgar Dhaliwal MD on 08/01/22, 9:54 AM documented in this [id number] Note* Brief Op Note - Edgar Dhaliwal MD - 08/01/2022 9:51 AM EDT Brief Post Operative Note Patient Name: Verito Brennan : 1965 (57 y.o.) Date of Service: 08/01/2022 CSN: [id number] Procedure(s): Bilateral Insertion Trial Spinal Cord Stimulator via Fluoroscopic T12-L2 Approach 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] Post-Operative Diagnoses: * Failed back syndrome, lumbosacral [M96.1] Surgeon(s) and Role: * Edgar Dhaliwal MD - Primary Anesthesiologist: Gopal Neville MD Anesthesiologist Plant Cytologist: NANI Ashby Test Skein Winder: Teressa Huff RN Family Services Manager: Xena Godoy, TECHNOLOGIST Scrub Person: ST Hedy Float: Janeen Krishnan RN; Nuris Mcrae RN Operative findings: Normal epidural space. Intra and immediate post-operative complications: None Type of anesthesia used: General Estimated blood loss: Minimal Estimated urine output: Refer to surgical log Specimen(s): * No specimens in log * Implant(s): Implant Name Type Inv. Item Serial No. Underwriter Mortgage Loan Lot No. LRB No. Used Action LEAD 60CM PERC OCTRODE TRIAL - [id number] LEAD 60CM PERC OCTRODE TRIAL [id number] [employer] [place] NA N/A 1 Implanted LEAD 60CM PERC OCTRODE TRIAL - [id number] LEAD 60CM PERC OCTRODE TRIAL [id number] [employer] [place] NA N/A 1 Implanted Drain(s): * No LDAs found * Wound(s): Wound 08/01/22 1-2 Incision Thoracic Spine (Active) Wound Closure Surgical Adhesive;Steri-strip 06/30/22 0004 Edgar Dhaliwal MD 08/01/2022 9:51 AM [id number] Miscellaneous Notes* Brief Op Note - Edgar Dhaliwal MD - 08/01/2022 9:51 AM EDT Brief Post Operative Note Patient Name: Verito Brennan : 1965 (57 y.o.) Date of Service: 08/01/2022 CSN: [id number] Procedure(s): Bilateral Insertion Trial Spinal Cord Stimulator via Fluoroscopic T12-L2 Approach 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] Post-Operative Diagnoses: * Failed back syndrome, lumbosacral [M96.1] Surgeon(s) and Role: * Edgar Dhaliwal MD - Primary Anesthesiologist: Gopal Neville MD Anesthesiologist Plant Cytologist: NANI Ashby Test Skein Winder: Teressa Huff RN Family Services Manager: Xena Godoy, TECHNOLOGIST Scrub Person: ST Hedy Float: Janeen Krishnan RN; Nuris Mcrae RN Operative findings: Normal epidural space. Intra and immediate post-operative complications: None Type of anesthesia used: General Estimated blood loss: Minimal Estimated urine output: Refer to surgical log Specimen(s): * No specimens in log * Implant(s): Implant Name Type Inv. Item Serial No. Underwriter Mortgage Loan Lot No. LRB No. Used Action LEAD 60CM PERC OCTRODE TRIAL - [id number] LEAD 60CM PERC OCTRODE TRIAL [id number] [employer] [place] NA N/A 1 Implanted LEAD 60CM PERC OCTRODE TRIAL - [id number] LEAD 60CM PERC OCTRODE TRIAL [id number] [employer] [place] NA N/A 1 Implanted Drain(s): * No LDAs found * Wound(s): Wound 08/01/22 1-2 Incision Thoracic Spine (Active) Wound Closure Surgical Adhesive;Steri-strip 06/30/22 0004 Edgar Dhaliwal MD 08/01/2022 9:51 AM * Op Note - Edgar Dhaliwal MD - 08/01/2022 9:28 AM EDT VERITO BRENNAN [facility] [id number] 1965 DATE 08/01/2022 OPERATIVE REPORT SURGEON EDGAR DHALIWAL MD PREOPERATIVE DIAGNOSIS 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 PROCEDURE Bilateral fluoroscopic-directed insertion of trial spinal cord stimulator electrodes via percutaneous T12-L1 approach. ANESTHESIA General. INDICATION Verito Brennan is a 57-year-old female status post a prior L2-3 diskectomy, who now has severe axial lumbar pain and bilateral hip and lateral thigh pain. She has failed conservative measures and now presents for a trial spinal cord stimulator electrode insertion in an attempt to alleviate her pain syndrome. PROCEDURE IN DETAIL Procedure was performed in OR #2. The patient was intubated and general anesthesia was established. An appropriate time-out was performed. Neurosurgery, Anesthesiology and nursing teams all agreed to this patient's identity and planned procedure. She received 900 mg of clindamycin at the onset of the procedure for antibiotic prophylaxis. She was positioned prone on the operating room table. The thoracolumbar area was cleansed with alcohol, prepped with ChloraPrep and draped in the usual sterile fashion. Fluoroscopy was used to identify spinal levels, and a widely patent interlaminar area from T12 to L1 was chosen, as this was anatomically separate from the area of prior scar at L2. First, a right-sided approach was used. A 14-gauge Tuohy needle was navigated in a paraspinal fashion until the needle came to rest in the T12-L1 interlaminar area. The needle was then carefully advanced into the dorsal epidural space, as evidenced by loss of resistance technique by use of a glass syringe and preservative-free saline, negative aspiration of CSF. Next, an BranchOut Octrode electrode was navigated fluoroscopically until the most superior aspect of the electrode came to rest at the superior T8 vertebral body level, just to the right of midline. In a similar fashion, a left paramedian approach was used to insert a 14-gauge Tuohy needle into the L1-T12 interlaminar space. The needle was carefully advanced into the dorsal epidural space, as evidenced by negative aspiration of CSF and loss of resistance with use of a glass syringe and preservative-free saline. Next, a 2nd [employer] Octrode was navigated in the dorsal epidural space until the most superior aspect of the electrode came to rest at the superior aspect of the T8 level. This electrode was just to the left of midline. Lateral fluoroscopy was then used to determine the dorsal location of the electrodes in the dorsal epidural space, which is the desired anatomical location. The steering Mandrels were removed followed by removal of the needles. Biopatches was placed at the exit sites followed by application of Steri-Strips and Aquacel antibacterial occlusive dressing. The patient tolerated the procedure well. She was returned to a supine position, extubated and transferred to PACU in stable condition. 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 PROCEDURE Bilateral fluoroscopic-directed insertion of trial spinal cord stimulator electrodes via percutaneous T12-L1 approach. ANESTHESIA General. INDICATION Verito Brennan is a 57-year-old female status post a prior L2-3 diskectomy, who now has severe axial lumbar pain and bilateral hip and lateral thigh pain. She has failed conservative measures and now presents for a trial spinal cord stimulator electrode insertion in an attempt to alleviate her pain syndrome. PROCEDURE IN DETAIL Procedure was performed in OR #2. The patient was intubated and general anesthesia was established. An appropriate time-out was performed. Neurosurgery, Anesthesiology and nursing teams all agreed to this patient's identity and planned procedure. She received 900 mg of clindamycin at the onset of the procedure for antibiotic prophylaxis. She was positioned prone on the operating room table. The thoracolumbar area was cleansed with alcohol, prepped with ChloraPrep and draped in the usual sterile fashion. Fluoroscopy was used to identify spinal levels, and a widely patent interlaminar area from T12 to L1 was chosen, as this was anatomically separate from the area of prior scar at L2. First, a right-sided approach was used. A 14-gauge Tuohy needle was navigated in a paraspinal fashion until the needle came to rest in the T12-L1 interlaminar area. The needle was then carefully advanced into the dorsal epidural space, as evidenced by loss of resistance technique by use of a glass syringe and preservative-free saline, negative aspiration of CSF. Next, an Gould Octrode electrode was navigated fluoroscopically until the most superior aspect of the electrode came to rest at the superior T8 vertebral body level, just to the right of midline. In a similar fashion, a left paramedian approach was used to insert a 14-gauge Tuohy needle into the L1-T12 interlaminar space. The needle was carefully advanced into the dorsal epidural space, as evidenced by negative aspiration of CSF and loss of resistance with use of a glass syringe and preservative-free saline. Next, a 2nd Gould Octrode was navigated in the dorsal epidural space until the most superior aspect of the electrode came to rest at the superior aspect of the T8 level. This electrode was just to the left of midline. Lateral fluoroscopy was then used to determine the dorsal location of the electrodes in the dorsal epidural space, which is the desired anatomical location. The steering Mandrels were removed followed by removal of the needles. Biopatches was placed at the exit sites followed by application of Steri-Strips and Aquacel antibacterial occlusive dressing. The patient tolerated the procedure well. She was returned to a supine position, extubated and transferred to PACU in stable condition. MD Charmaine FUNK 08/01/2022 09:47 [id number] T 08/01/2022 10:08 [facility] [id number] Attending History and physical note* Edgar Dhaliwal MD - 08/01/2022 8:52 AM EDT INTERVAL HISTORY AND PHYSICAL Patient Name: Verito Brennan Admit Date: [id number] MR #: [id number] : 1965 The H&P has been reviewed and the patient has been examined. I concur with the findings of the H&P. There are no significant changes. It is appropriate to proceed with the planned procedure. Edgar Dhaliwal MD 08/01/2022 8:52 AM Source Note - Edgar Dhaliwal MD - 08/01/2022 8:49 AM EDT Neurosurgical preoperative history and physical for procedure of 08/01/2022. Chief complaint. Failed back syndrome. HPI Verito Brenann is a 57-year-old female with failed back syndrome. She returned on June 28, 2022to clinic to discuss results of her scoliosis series of 05/31/2022. I have independently reviewed the studies on a computerized workstation, my interpretation follows. The patient has a levoscoliosis of 13 degrees centered from L1-L4. She has 15 mm of SVA. Lumbar lordosis is only 17 degrees with thenormal range of 31-50. She is status post on 01/13/2022 a right L2-L3 MIS discectomy. She did also have a low ejection fraction due to cardiomyopathy as well as multifocal chronic ischemic heart disease, but the has shown improvement in her ejection fraction from 38% to 55% on a recent cardiac cath. She has significant pain in her axial lumbar spine left side greater than right, paraspinal that radiates into the bilateral hips and the IT band areas bilaterally whenever she ambulates. She statesshe cannot ambulate more than 1 block before she has significant severe pain that stops her or limits her. She also is very depressed because she cannot do any yard work as a result of the pain. Past medical history. Cardiomyopathy hypertension ischemic heart disease. Medications reviewed in MAY. Allergies to penicillin and prednisone. Family medical history is negative for known familial neuropathy. Review of Systems Cardiomyopathy. Ischemic heart disease. Hypertension. Scoliosis. Tobaccoism. No recent COVID-19 symptoms. No fever chills night sweats. Psychosocial review. The patient lives in the region with family. Physical Exam Awake alert oriented pleasant female who at times is tearful because of the emotional stress of herpain syndrome. She has diffuse tenderness palpation over lumbosacral area especially at the L4-L5 area and L5-S1 area left side greater than right. She has no significant pain to palpation of the L2-L3 area. Her lumbar L2-L3 incisions clean flat and dry with no pseudomeningocele or erythema. There is no rash of the skin. Straight leg raising is positive bilaterally at 45 degrees of iliopsoas flexion cause buttock pain. Her gait is mildly broad- based and antalgic. Lungs are clear. Cardiac exam feels regular rate and rhythm. There is no jugular venous distention. There is no pretibial edema. Deep tendon reflexes at the patella and Achilles unobtainable. Speech is fluent. Recent and remote memory is intact. Emotional content is appropriate for circumstances. She has full range of motion the head and neck. No wheezing is noted to the lung queen. No rash over the lower extremities. No pedal or pretibial edema. No jugular venous distention. Impression Failed back syndrome, scoliosis, status post L2-L3 discectomy, chronic axial lumbosacral pain that limits her daily activities. Plan I once again discussed with her the various options. Certainly direct reconstructive spine surgery could be attempted, which would entail multisegment lumbosacral pelvic fixation and correction of her scoliosis. She understands however that this would be a major undertaking especially in light of her cardiomyopathy. However I also discussed with her neuromodulation and the advantages of neuromodulation including the agnostic aspects of the mechanism, as well as the fact that it was very low risk compared to an open scoliosis deformity procedure. I discussed with her the risks of a trial procedure via T10-L2 insertion approach fluoroscopically including epidural hematoma CSF leak, infection,temporary permanent neurologic disability, and she wishes to proceed. Informed consent obtained. Edgar Dhaliwal MD [id number] History and physical note* Edgar Dhaliwal MD - 08/01/2022 8:52 AM EDT INTERVAL HISTORY AND PHYSICAL Patient Name: Verito Brennan Admit Date: [id number] MR #: [id number] : 1965 The H&P has been reviewed and the patient has been examined. I concur with the findings of the H&P. There are no significant changes. It is appropriate to proceed with the planned procedure. Edgar Dhaliwal MD 08/01/2022 8:52 AM Source Note - Edgar Dhaliwal MD - 08/01/2022 8:49 AM EDT Neurosurgical preoperative history and physical for procedure of 08/01/2022. Chief complaint. Failed back syndrome. HPI Verito Brennan is a 57-year-old female with failed back syndrome. She returned on June 28, 2022to clinic to discuss results of her scoliosis series of 05/31/2022. I have independently reviewed the studies on a computerized workstation, my interpretation follows. The patient has a levoscoliosis of 13 degrees centered from L1-L4. She has 15 mm of SVA. Lumbar lordosis is only 17 degrees with thenormal range of 31-50. She is status post on 01/13/2022 a right L2-L3 MIS discectomy. She did also have a low ejection fraction due to cardiomyopathy as well as multifocal chronic ischemic heart disease, but the has shown improvement in her ejection fraction from 38% to 55% on a recent cardiac cath. She has significant pain in her axial lumbar spine left side greater than right, paraspinal that radiates into the bilateral hips and the IT band areas bilaterally whenever she ambulates. She statesshe cannot ambulate more than 1 block before she has significant severe pain that stops her or limits her. She also is very depressed because she cannot do any yard work as a result of the pain. Past medical history. Cardiomyopathy hypertension ischemic heart disease. Medications reviewed in MAY. Allergies to penicillin and prednisone. Family medical history is negative for known familial neuropathy. Review of Systems Cardiomyopathy. Ischemic heart disease. Hypertension. Scoliosis. Tobaccoism. No recent COVID-19 symptoms. No fever chills night sweats. Psychosocial review. The patient lives in the region with family. Physical Exam Awake alert oriented pleasant female who at times is tearful because of the emotional stress of herpain syndrome. She has diffuse tenderness palpation over lumbosacral area especially at the L4-L5 area and L5-S1 area left side greater than right. She has no significant pain to palpation of the L2-L3 area. Her lumbar L2-L3 incisions clean flat and dry with no pseudomeningocele or erythema. There is no rash of the skin. Straight leg raising is positive bilaterally at 45 degrees of iliopsoas flexion cause buttock pain. Her gait is mildly broad- based and antalgic. Lungs are clear. Cardiac exam feels regular rate and rhythm. There is no jugular venous distention. There is no pretibial edema. Deep tendon reflexes at the patella and Achilles unobtainable. Speech is fluent. Recent and remote memory is intact. Emotional content is appropriate for circumstances. She has full range of motion the head and neck. No wheezing is noted to the lung queen. No rash over the lower extremities. No pedal or pretibial edema. No jugular venous distention. Impression Failed back syndrome, scoliosis, status post L2-L3 discectomy, chronic axial lumbosacral pain that limits her daily activities. Plan I once again discussed with her the various options. Certainly direct reconstructive spine surgery could be attempted, which would entail multisegment lumbosacral pelvic fixation and correction of her scoliosis. She understands however that this would be a major undertaking especially in light of her cardiomyopathy. However I also discussed with her neuromodulation and the advantages of neuromodulation including the agnostic aspects of the mechanism, as well as the fact that it was very low risk compared to an open scoliosis deformity procedure. I discussed with her the risks of a trial procedure via T10-L2 insertion approach fluoroscopically including epidural hematoma CSF leak, infection,temporary permanent neurologic disability, and she wishes to proceed. Informed consent obtained. Edgar Dhaliwal MD * Edgar Dhaliwal MD - 08/01/2022 8:49 AM EDT Neurosurgical preoperative history and physical for procedure of 08/01/2022. Chief complaint. Failed back syndrome. VICENTE Brennan is a 57-year-old female with failed back syndrome. She returned on June 28, 2022to clinic to discuss results of her scoliosis series of 05/31/2022. I have independently reviewed the studies on a computerized workstation, my interpretation follows. The patient has a levoscoliosis of 13 degrees centered from L1-L4. She has 15 mm of SVA. Lumbar lordosis is only 17 degrees with thenormal range of 31-50. She is status post on 01/13/2022 a right L2-L3 MIS discectomy. She did also have a low ejection fraction due to cardiomyopathy as well as multifocal chronic ischemic heart disease, but the has shown improvement in her ejection fraction from 38% to 55% on a recent cardiac cath. She has significant pain in her axial lumbar spine left side greater than right, paraspinal that radiates into the bilateral hips and the IT band areas bilaterally whenever she ambulates. She statesshe cannot ambulate more than 1 block before she has significant severe pain that stops her or limits her. She also is very depressed because she cannot do any yard work as a result of the pain. Past medical history. Cardiomyopathy hypertension ischemic heart disease. Medications reviewed in MAY. Allergies to penicillin and prednisone. Family medical history is negative for known familial neuropathy. Review of Systems Cardiomyopathy. Ischemic heart disease. Hypertension. Scoliosis. Tobaccoism. No recent COVID-19 symptoms. No fever chills night sweats. Psychosocial review. The patient lives in the region with family. Physical Exam Awake alert oriented pleasant female who at times is tearful because of the emotional stress of herpain syndrome. She has diffuse tenderness palpation over lumbosacral area especially at the L4-L5 area and L5-S1 area left side greater than right. She has no significant pain to palpation of the L2-L3 area. Her lumbar L2-L3 incisions clean flat and dry with no pseudomeningocele or erythema. There is no rash of the skin. Straight leg raising is positive bilaterally at 45 degrees of iliopsoas flexion cause buttock pain. Her gait is mildly broad- based and antalgic. Lungs are clear. Cardiac exam feels regular rate and rhythm. There is no jugular venous distention. There is no pretibial edema. Deep tendon reflexes at the patella and Achilles unobtainable. Speech is fluent. Recent and remote memory is intact. Emotional content is appropriate for circumstances. She has full range of motion the head and neck. No wheezing is noted to the lung queen. No rash over the lower extremities. No pedal or pretibial edema. No jugular venous distention. Impression Failed back syndrome, scoliosis, status post L2-L3 discectomy, chronic axial lumbosacral pain that limits her daily activities. Plan I once again discussed with her the various options. Certainly direct reconstructive spine surgery could be attempted, which would entail multisegment lumbosacral pelvic fixation and correction of her scoliosis. She understands however that this would be a major undertaking especially in light of her cardiomyopathy. However I also discussed with her neuromodulation and the advantages of neuromodulation including the agnostic aspects of the mechanism, as well as the fact that it was very low risk compared to an open scoliosis deformity procedure. I discussed with her the risks of a trial procedure via T10-L2 insertion approach fluoroscopically including epidural hematoma CSF leak, infection,temporary permanent neurologic disability, and she wishes to proceed. Informed consent obtained. Edgar Dhaliwal MD documented in this [id number] History and physical note* Edgar Dhaliwal MD - 08/01/2022 8:49 AM EDT Neurosurgical preoperative history and physical for procedure of 08/01/2022. Chief complaint. Failed back syndrome. VICENTE Brennan is a 57-year-old female with failed back syndrome. She returned on June 28, 2022to clinic to discuss results of her scoliosis series of 05/31/2022. I have independently reviewed the studies on a computerized workstation, my interpretation follows. The patient has a levoscoliosis of 13 degrees centered from L1-L4. She has 15 mm of SVA. Lumbar lordosis is only 17 degrees with thenormal range of 31-50. She is status post on 01/13/2022 a right L2-L3 MIS discectomy. She did also have a low ejection fraction due to cardiomyopathy as well as multifocal chronic ischemic heart disease, but the has shown improvement in her ejection fraction from 38% to 55% on a recent cardiac cath. She has significant pain in her axial lumbar spine left side greater than right, paraspinal that radiates into the bilateral hips and the IT band areas bilaterally whenever she ambulates. She statesshe cannot ambulate more than 1 block before she has significant severe pain that stops her or limits her. She also is very depressed because she cannot do any yard work as a result of the pain. Past medical history. Cardiomyopathy hypertension ischemic heart disease. Medications reviewed in MAY. Allergies to penicillin and prednisone. Family medical history is negative for known familial neuropathy. Review of Systems Cardiomyopathy. Ischemic heart disease. Hypertension. Scoliosis. Tobaccoism. No recent COVID-19 symptoms. No fever chills night sweats. Psychosocial review. The patient lives in the region with family. Physical Exam Awake alert oriented pleasant female who at times is tearful because of the emotional stress of herpain syndrome. She has diffuse tenderness palpation over lumbosacral area especially at the L4-L5 area and L5-S1 area left side greater than right. She has no significant pain to palpation of the L2-L3 area. Her lumbar L2-L3 incisions clean flat and dry with no pseudomeningocele or erythema. There is no rash of the skin. Straight leg raising is positive bilaterally at 45 degrees of iliopsoas flexion cause buttock pain. Her gait is mildly broad- based and antalgic. Lungs are clear. Cardiac exam feels regular rate and rhythm. There is no jugular venous distention. There is no pretibial edema. Deep tendon reflexes at the patella and Achilles unobtainable. Speech is fluent. Recent and remote memory is intact. Emotional content is appropriate for circumstances. She has full range of motion the head and neck. No wheezing is noted to the lung queen. No rash over the lower extremities. No pedal or pretibial edema. No jugular venous distention. Impression Failed back syndrome, scoliosis, status post L2-L3 discectomy, chronic axial lumbosacral pain that limits her daily activities. Plan I once again discussed with her the various options. Certainly direct reconstructive spine surgery could be attempted, which would entail multisegment lumbosacral pelvic fixation and correction of her scoliosis. She understands however that this would be a major undertaking especially in light of her cardiomyopathy. However I also discussed with her neuromodulation and the advantages of neuromodulation including the agnostic aspects of the mechanism, as well as the fact that it was very low risk compared to an open scoliosis deformity procedure. I discussed with her the risks of a trial procedure via T10-L2 insertion approach fluoroscopically including epidural hematoma CSF leak, infection,temporary permanent neurologic disability, and she wishes to proceed. Informed consent obtained. Edgar Dhaliwal MD [id number] Evaluation note* Encounter Date Diagnosis Assessment Notes Treatment Notes Treatment Clinical Notes July, Lumbosacral spondylosis (ICD-10 - M47.817) >20 min discussion of her treatment plan through neurosurgery in [place]. Considering having another procedure. She notes problems with her daily activities and we discussed her questions of return to work. Completing disability forms. [employer] Other 04-26-2023 History of Present illness Narrative* Edgar Dhaliwal MD - 06/28/2022 1:11 PM EDT Chief Complaint Patient presents with Follow-up Follow up after scoli Follow-up chronic axial lumbar pain HPI Verito now returns to discuss results of her scoliosis series of 05/31/2022. I have independentlyreviewed the studies on a computerized workstation, my interpretation follows. The patient has a levoscoliosis of 13 degrees centered from L1-L4. She has 15 mm of SVA. Lumbar lordosis is only 17 degrees with the normal range of 31-50. She is status post on 01/13/2022 a right L2-L3 MIS discectomy. She did also have a low ejection fraction due to cardiomyopathy as well as multifocal chronic ischemic heart disease, but the has shown improvement in her ejection fraction from 38% to 55% on a recent cardiac cath. She has significant pain in her axial lumbar spine left side greater than right, parasp inal that radiates into the bilateral hips and the IT band areas bilaterally whenever she ambulates. She states she cannot ambulate more than 1 block before she has significant severe pain that stopsher or limits her. She also is very depressed because she cannot do any yard work as a result of the pain. Review of Systems Cardiomyopathy. Ischemic heart disease. Hypertension. Scoliosis. Tobaccoism. Physical Exam Awake alert oriented pleasant female who at times is tearful because of the emotional stress of herpain syndrome. She has diffuse tenderness palpation over lumbosacral area especially at the L4-L5 area and L5-S1 area left side greater than right. She has no significant pain to palpation of the L2-L3 area. Her lumbar L2-L3 incisions clean flat and dry with no pseudomeningocele or erythema. There is no rash of the skin. Straight leg raising is positive bilaterally at 45 degrees of iliopsoas flexion cause buttock pain. Her gait is mildly broad- based and antalgic. Lungs are clear. Cardiac exam feels regular rate and rhythm. There is no jugular venous distention. There is no pretibial edema. Deep tendon reflexes at the patella and Achilles unobtainable. Speech is fluent. Recent and remote memory is intact. Emotional content is appropriate for circumstances. She has full range of motion the head and neck. No wheezing is noted to the lung queen. Impression Failed back syndrome, scoliosis, status post L2-L3 discectomy, chronic axial lumbosacral pain that limits her daily activities. Plan I once again discussed with her the various options. Certainly direct reconstructive spine surgery could be attempted, which would entail multisegment lumbosacral pelvic fixation and correction of her scoliosis. She understands however that this would be a major undertaking especially in light of her cardiomyopathy. However I also discussed with her neuromodulation and the advantages of neuromodulation including the agnostic aspects of the mechanism, as well as the fact that it was very low risk compared to an open scoliosis deformity procedure. I discussed with her the risks of a trial procedure via T10-L2 insertion approach fluoroscopically including epidural hematoma CSF leak, infection,temporary permanent neurologic disability, and she wishes to proceed. Informed consent obtained. Edgar Dhaliwal MD documented in this [id number] History of Present illness Narrative* Vijay Acuna MD - 06/05/2022 2:22 PM EDT Cardiology Clinic Visit Heart & Vascular [facility] 06/05/2022 Vijay Acuna MD [address] [place] [id number] Patient: Verito Brennan Date of : 1965 (57 y.o.) Referring Provider: No ref. provider found PCP: Clair Dahl MD Assessment & Plan Verito Brennan is a 57 y.o. woman with history of arthritis and back pain who orginally presented to the clinic for preoperative risk stratification for hemilaminectomy, foraminotomy, and discectomy and was found to have a LBBB. She underwent an echocardiogram which revealed systolif HF with andEF of 35%. She then underwent nuclear stress testing which revealed large septal and apical infarcts with no stress-induced ischemia. However given her cardiomyopathy and prior possible infarcts we discussed an invasive ischemic evaluation which the patient was agreeable to. She did undergo a left heart catheterization since the last clinic visit which revealed nonobstructive coronary artery disease. LVEF on left heart catheterization was 45%. She then underwent repeat echocardiogram which revealed recovery of LVEF to 50 to 55%. Chronic systolic HF -with recovery of LVEF. Euvolemic on exam. Non-ischemic. -Increase metoprolol to succinate to 100 mg daily. -Continue Entresto 24-26 mg twice daily Hyperlipidemia-LDL above goal however recently started on atorvastatin, repeat lipid panel ordered to be completed close to home Return in about 1 year (around 06/06/2023). Vijay Acuna MD [facility] Non-Invasive Cardiology [facility] Heart and Vascular Chief Complaint: HF Subjective Verito Brennan is a 57 y.o. woman with history of arthritis and back pain who orginally presented to the clinic for preoperative risk stratification for hemilaminectomy, foraminotomy, and discectomy and was found to have a LBBB. She underwent an echocardiogram which revealed systolif HF with andEF of 35%. She then underwent nuclear stress testing which revealed large septal and apical infarcts with no stress-induced ischemia. However given her cardiomyopathy and prior possible infarcts we discussed an invasive ischemic evaluation which the patient was agreeable to. She did undergo a left heart catheterization since the last clinic visit which revealed nonobstructive coronary artery disease. LVEF on left heart catheterization was 45%. She then underwent repeat echocardiogram which revealed recovery of LVEF to 50 to 55%. Since last visit the patient underwent surgery for her back. She reports that from a cardiac standpoint she has been feeling well. She denies chest pain. She denies feeling short of breath. She denies lower extremity swelling, PND and orthopnea. She denies palpitations. She denies lightheadedness and dizziness. She denies any episodes of syncope. Review of Systems: Constitution: Negative. HENT: Negative. Cardiovascular: As above. Respiratory: As above. Endocrine: Negative. Skin: Negative. Musculoskeletal: Negative. Gastrointestinal: Negative. Genitourinary: Negative. Neurological: Negative. Psychiatric/Behavioral: Negative. Past Medical History: Diagnosis Date Anxiety Back pain Hypertension Seasonal allergies Systolic heart failure (HCC) Past Surgical History: Procedure Laterality Date CARDIAC CATHETERIZATION N/A 08/23/2021 Procedure: Coronary Angiogram; Surgeon: Rios Verduzco MD; Location: [facility] HEAT TREAT TECHNICIAN; Service: Cardiovascular CARDIAC CATHETERIZATION N/A 08/23/2021 Procedure: Left Ventriculogram; Surgeon: Rios Verduzco MD; Location: [facility] HEAT TREAT TECHNICIAN; Service: Cardiovascular CERVICAL ABLATION W/ LASER 1997 LEFT HEART CATH N/A 08/23/2021 Procedure: Left Heart Cath; Surgeon: Rios Verduzco MD; Location: [facility] HEAT TREAT TECHNICIAN; Service: Cardiovascular HEMORRHOIDECTOMY 1997 LAMINECTOMY DECOMPRESSION MINIMALLY INVASIVE SINGLE LEVEL N/A 01/13/2022 Procedure: Right L2-3 Minimally Invasive Hemilaminectomy, Foraminotomy, and Discectomy; Surgeon: Edgar Dhaliwal MD; Location: Main OR; Service: Neurological ORTHOPEDIC SURGERY 1 on Left foot, 2 on Right foot - last in 2001 POLYPECTOMY 1991 Throat polypectomy Family History Problem Relation Age of Onset Diabetes Mother Multiple myeloma Mother Diabetes Father Atrial fibrillation Father Heart disease Brother Atrial fibrillation Brother Diabetes Brother Atrial fibrillation Maternal Aunt Social History Tobacco Use Smoking Status Some Days Packs/day: 0.10 Years: 20.00 Pack years: 2.00 Types: Cigarettes Smokeless Tobacco Never Tobacco Comments smokes 1-2 cigarettes daily Vaping Use Vaping Status Never Used Passive vaping exposure: Yes Allergies: Penicillins HOME Medications: Current Outpatient Medications on File Prior to Visit Medication Sig ALPRAZolam (XANAX) 0.25 MG tablet Take 1 (one) tablet (0.25 mg total) by mouth 3 (three) times a day as needed . aspirin 81 MG EC tablet Take 1 (one) tablet (81 mg total) by mouth daily PM . atorvastatin (LIPITOR) 20 MG tablet Take 1 (one) tablet (20 mg total) by mouth daily . diphenhydrAMINE (BENADRYL) 25 mg tablet Take 1 (one) tablet (25 mg total) by mouth nightly as needed for sleep . ibuprofen (ADVIL,MOTRIN) 800 MG tablet Take 600 mg by mouth 3 (three) times a day as needed . loratadine 10 mg Tab 10 mg, pseudoePHEDrine 120 mg TbER 120 mg Take by mouth as needed . metoprolol succinate (TOPROL-XL) 50 MG 24 hr tablet Take 1.5 (one and a half) tablets (75 mg total)by mouth daily . sacubitriL-valsartan (Entresto) 24-26 mg per tablet Take 1 (one) tablet by mouth 2 (two) times a day . tiZANidine (ZANAFLEX) 2 MG tablet Take 1 (one) tablet (2 mg total) by mouth 3 (three) times a day . No current facility-administered medications on file prior to visit. Physical Examination: BP 119/72 (BP Location: Left arm) Pulse 88 Ht 5' 10 Wt 103 kg (227 lb) LMP (LMP Unknown) SpO2 95% BMI 32.57 kg/m Constitutional: Appears well-developed and well-nourished. No distress. HENT: Head: Normocephalic and atraumatic. Eyes: Conjunctivae and EOM are normal. No scleral icterus. Neck: Normal range of motion. Cardiovascular: Normal rate and regular rhythm. Exam reveals no gallop and no friction rub. No murmur heard. No JVP elevation. No LE edema. Pulmonary/Chest: Effort normal and breath sounds normal. No respiratory distress. No wheezes. No rales. Abdominal: Soft. Bowel sounds are normal. There is no abdominal tenderness. Musculoskeletal: Normal range of motion. Neurological: AOx3, moving all ext. Skin: Skin is warm and dry. No rash noted. Psychiatric: Normal mood and affect. Cardiovascular Studies: 10/25/21 TTE Summary 1. Normal left-ventricular chamber size. Mild concentric left trickle hypertrophy. Systolic function is low-normal with no regional wall motion normalities. Estimate ejection fraction of 50 to 55%. When directly compared to the prior echocardiogram the LV systolic function has improved. 2. Right ventricular chamber dimension is normal. Right ventricular systolic function is normal. 3. No hemodynamically significant valvular disease. 4. There is no pulmonary hypertension, estimated right ventricle systolic pressure is 17 mmHg. 05/24/21 ECG Normal sinus rhythm Left bundle branch block Abnormal ECG 07/06/21 TTE Summary 1. Mildly dilated LV chamber size. There is mild concentric left ventricular hypertrophy. There is moderately reduced LV systolic function with the entire inferoseptal, entire anteroseptal and apical septal gates being akinetic. The remaining gates are hypokinetic. LVEF by 3D echo of 35%. 2. The left ventricular diastolic function is grade I diastolic dysfunction. 3. Right ventricular chamber dimension is normal. Right ventricular systolic function is normal. 4. There is no hemodynamically significant valve disease. 5. There is borderline pulmonary hypertension, estimated right ventricle systolic pressure is 38 mmHg. [facility] 07/22/21 Summary 1. Abnormal pharmacologic stress nuclear perfusion study suggestive of large septal and apical infarction(s).. Ischemia is not demonstrated. There is severe global LV dysfunction as listed below.. 2. Nondiagnostic pharmacologic ECG portion of stress nuclear perfusion study. Resting ST segment changes. No chest discomfort. No significant arrhythmias. Normal hemodynamic response to Lexiscan. 3. There is global LV dysfunction with segmental variation as detailed below. 4. Resting ejection fraction 26%. Post stress ejection fraction 31% severe left ventricular enlargement. 5. There are large fixed defects of the septum and apical segments. Otherwise homogeneous perfusion. There is GI uptake artifact adjacent to the inferior and apical segments. 6. Overall high-risk study based on SCAI criteria (>3% predicted annual cardiac mortality). Labs: Lab Results Component Value Date GLUCOSE 105 (H) 01/02/2022 CALCIUM 9.0 01/02/2022 NA 138 01/02/2022 K 4.4 01/02/2022 CL 107 01/02/2022 BUN 17 01/02/2022 CREATININE 0.88 01/02/2022 Lab Results Component Value Date WBC 6.99 01/02/2022 HGB 13.8 01/02/2022 HCT 41.4 01/02/2022 MCV 94.1 01/02/2022 PLT 201 01/02/2022 RBC 4.40 01/02/2022 Lab Results Component Value Date CHOL 191 08/03/2021 LDLCALC 122 08/03/2021 TRIG 66 08/03/2021 HDL 56 08/03/2021 documented in this [id number] History of Present illness Narrative* Edgar Dhaliwal MD - 05/31/2022 2:02 PM EDT Chief Complaint Patient presents with Follow-up Patient presents here for follow up after MRI. Follow-up, MRI. VICENTE Sellers is a 57-year-old female who is status post on 01/13/2022 a right L2-L3 minimally invasivediscectomy. The patient unfortunately has had some persistent axial lumbar pain despite physical therapy. This then prompted new imaging work-up. Plain spine films including flexion-extension views on 04/20/2022 were independently reviewed by me and a computer is workstation, my interpretation follows. There is levoscoliosis once again noted centered at approximately L2-L3 level extending to L4 with some attendant facet arthropathy. There is no evidence of instability with flexion-extension view. Repeat MRI on 05/10/2022 from [facility] demonstrates no evidence of recurrent disc herniation. There is mild retrolisthesis of L2 on L3 and some mild foraminal stenosis at left L2-3 and moderate foraminal stenosis at right L2-L3. The painis persistent daily event in the axial lumbar spine radiating to the posterior superior hips. Pain i s exacerbated by sitting and standing for long periods of time. Physical therapy once again is actually painful for her to perform, but she has persisted despite this. 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 Review of Systems Hypertension. Tobaccoism. Heart failure. Physical Exam Awake alert pleasant female in no obvious acute distress. She has well-healed lumbar disc ectomy incision with no pseudomeningocele or erythema or rash. Straight leg raising is negative to cause any sciatica. She does have diffuse tenderness to palpation of the lumbar spine. Gait and station overall normal. Power the iliopsoas gluteal quads of hamstrings hip AB adductor's and dorsi and plantarflex the feet are 5 out of 5 equal. Deep tendon reflexes the patella and Achilles are unobtainable. No calf swelling or tenderness. Impression Lumbar scoliosis in a patient with persistent pain despite a right L2-L3 minimal invasive discectomy. 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 She may very well be a candidate for techniques such as neuromodulation, or alternatively a open reduction internal fixation scoliosis deformity correction surgery. I will order a scoliosis series first to better understand her overall curvature, and see her back once this has been completed. Edgar Dhaliwal MD documented in this [id number] History of Present illness Narrative* Erika Louis PA-C - 04/20/2022 1:42 PM EST Neurosurgery Progress Note Assessment/Plan: 56 year old female who is status post L2-3 MIS hemilaminectomy, discectomy, and foraminotomy (01/13/2022, [place]) with additional findings of facet arthropathy at L4-5 on MRI lumbar spine. - Recommend continued efforts with home therapy exercises - Recommend XR lumbar spine, completed today - Recommend MRI lumbar spine as the patient continues to experience a deep ache to the lumbar region despite surgery and post-operative physical therapy - Will plan for follow-up upon completion of the imaging - advised patient to contact the office with any questions, concerns, or changes in symptomatology - Nursing notes reviewed BARTOLOME Lagunas, PADeneen [facility] Neurosurgery Subjective: The patient states that she has completed physical therapy. While at the physical therapy facility,she notes that the exercises were painful and she experienced some residual pain after the sessions; however, she feels that overall, she has improved. She states that the therapy exercises have helped to strengthen her core. She feels that physical therapy has been beneficial. Unfortunately, she continues to have a residual ache to the lumbar region. She states that it begins in the morning and 1-2 out of 10 and worsens throughout the day to max 3-4 out of 10. She states that the pain is typically localized to the left side, but sometimes is on the right side. Overall, the intensity of the pain is somewhat improved. Additionally, the patient is able to stand for longer periods of time. Postoperatively, she states that she was only able to stand for 15 minutes, but now she is up to 30 minutes. Rest seems to improve/resolve the pain. 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 Sunday was her last day of physical therapy. Objective: PACU Vitals 04/20/22 1328 BP: 116/77 Pulse: 80 SpO2: 96% PainSc: 0-No pain PainLoc: Back General: Healthy, well-appearing 57 y.o. female, in NAD Neuro: Awake, alert Chest: Chest rise symmetric, respirations non-labored Cardiac: No pedal edema, no posterior calf tenderness Skin: Warm and dry MSK: - Negative for bilateral SI joint tenderness - Positive for mild tenderness to palpation bilaterally around L4 and L5 Muscle Group Right Left Hip Flexion 5 5 Knee Extension 5 5 Knee Flexion 5 5 Dorsiflexion 5 5 Plantar Flexion 5 5 Sensation intact to light touch to bilateral lower extremities without areas of diminished sensation. Ambulates throughout the room without difficulties. documented in this [id number] Telephone encounter Note* Telephone Encounter - Ivonne Almanza MA - 04/17/2022 9:39 AM EST Pt. called in requesting refills on Metoprolol to be sent to [facility] in [place]. Last OV 11/09/21. Refills appropriate. [id number] Miscellaneous Notes* Telephone Encounter - Ivonne Almanza MA - 04/17/2022 9:39 AM EST Pt. called in requesting refills on Metoprolol to be sent to [facility] in [place]. Last OV 11/09/21. Refills appropriate. documented in this [id number] NotePROCEDURE: XR FOOT LT MIN 3 VIEWS COMPARISON: None. HISTORY: Pain in left foot FINDINGS: BONES:No acute fracture or dislocation. Minimal enthesopathic spurring of the calcaneus at the Achilles and plantar insertions. Minimal degenerative changes with SOFT TISSUES:Negative. No visible soft tissue swelling. EFFUSION:None visible. OTHER: Negative. IMPRESSION: Minimal degenerative changes Electronically authenticated by: ALONSO DUBOIS Date: 2022-03-23 07:15[facility] [id number] Evaluation note* Encounter Date Diagnosis Assessment Notes Treatment Notes Treatment Clinical Notes Mar, Lumbar degenerative disc disease (ICD-10 - M51.36) pain is unchanged and unfortunately no improvement since lumbar surgery. she is starting PT on 03/08 and is hopeful to improve for work AND her quality of life. Mar, Adjustment insomnia (ICD-10 - F51.02) symptoms have worsened due to stress of recent break in [place], Chronic pain (ICD-10 - G89.29) Mar, Plantar fasciitis, left (ICD-10 - M72.2) new problem, ?relation to back surgery. agrees to referral [facility] Other 12-29-2022 History of Present illness Narrative* Erika Louis PA-C - 03/02/2022 2:14 PM EST Neurosurgery Progress Note Assessment/Plan: 56 year old female who is status post L2-3 MIS hemilaminectomy, discectomy, and foraminotomy (01/13/2022, [place]) with additional findings of facet arthropathy at L4-5 on MRI lumbar spine. - Recommend physical therapy to assist with management of the patient's inferior lumbar pain - patient would like to do PT in [place] Incision is well healed at this time; therefore, if deemed appropriate by PT, patient may participate in aquatic therapy - Will plan for follow-up in 6-8 weeks - If inadequate relief with therapy, may consider additional imaging vs injections - Nursing notes reviewed BARTOLOME Lagunas, PADeneen [facility] Neurosurgery Subjective: The patient states that her major pre-operative pain has completely resolved; however, since resolution, she is now left with bilateral low back pain around L4-5. She localizes it above the SI joints, but below the incision. She states that this pain acts up after 15 minutes of activity. She finds that it is limiting her activities. She describes it as a persistent ache that is worse with activity. She denies any fevers, chills, or sweats. Her limp seems to be improving. She denies any drainagefrom the incision. She denies any other concerns. She did not go to physical therapy as they informed her that they never received the referral. I re-ordered the referral today and verbalized to the [facility] to send it to [place]. Objective: PACU Vitals 03/02/22 1402 BP: 115/77 Pulse: 82 Resp: 16 SpO2: 96% PainSc: 4 PainLoc: Back General: Healthy, well-appearing 57 y.o. female, in NAD Neuro: Awake, alert Chest: Chest rise symmetric, respirations non-labored Cardiac: No pedal edema, no posterior calf tenderness Back: - Incision well healed with no residual scabbing - No fluid collection; no expressible fluid; no erythema Skin: Warm and dry MSK: - Negative for bilateral SI joint tenderness - Positive for mild tenderness to palpation bilaterally around L4 and L5 Muscle Group Right Left Hip Flexion 5 5 Knee Extension 5 5 Knee Flexion 5 5 Dorsiflexion 5 5 Plantar Flexion 5 5 Sensation intact to light touch to bilateral lower extremities without areas of diminished sensation. Ambulates throughout the room without difficulties. documented in this [id number] History of Present illness Narrative* Delmy Goldman RN - 02/01/2022 2:33 PM EST Patient here today for wound check. Incision approximated at the top, the inferior portion noted with small amount of dry looking eschar. No drainage noted, no redness or edema noted. Area cleaned with chloraprep, dry sterile dressing applied. Patient to continue dressing changes until next appointment. Voiced understanding. Patient to call with any changes or concerns. documented in this [id number] History of Present illness Narrative* Erika Louis PA-C - 01/25/2022 10:56 AM EST Neurosurgery Progress Note Assessment/Plan: 56 year old female who is status post L2-3 MIS hemilaminectomy, discectomy, and foraminotomy (01/13/2022, [place]). - Advised patient to attempt to use tizanidine for her back pain as it is predominantly paraspinal and increased with palpation of the thoracic musculature - Recommended physical therapy; however, the patient would like to hold off as she does not feel that she is ready for it yet - Reminded patient to limit bending, lifting, and twisting - advised that she should avoid when possible and stop any activity immediately that causes pain - Recommend daily dressing changes - advised to wash with antibacterial soap and cover with dry sterile gauze Specifically, advised to avoid scrubbing the area Advised to avoid submerging the incision - Will plan for a nurse wound check next week and follow-up in 2-3 weeks - advised to call with anyquestions, concerns, or new/worsening symptoms - Nursing notes reviewed BARTOLOME Lagunas, WILL [facility] Neurosurgery Subjective: The patient states that she has done ok since surgery. She states that she has developed a pain to the right paraspinal musculature that radiates to the lateral ribs on the right. OTC analgesics have not been helpful; however, she did take a hydrocodone, which was helpful. She states that this pain worsens as the day progresses. It seems to be worse with activities, including washing dishes andcooking. She states that she has chronic issues with intermittent dizziness. She attempted to walk 1 block, but developed some lightheadedness and returned home. She has not had any additional issuessince this incident. She states that the lightheadedness is normal and she works with her PCP for this. She states that she continues to have issues with her dressing rolling up from the bottom. On Sunday, she states that she was doing an activity, and she felt her incision split as well as some pain. Following this, she noted some bleeding underneath the dressing. She applied tape at the bottom of the dressing, and the bleeding seemed to stop. She denies any fevers, chills, or sweats. No other concerns at this time. Objective: PACU Vitals 01/25/22 1049 BP: 116/77 Pulse: 84 Temp: 98 F (36.7 C) SpO2: 97% PainSc: 4 PainLoc: Back General: Healthy, well-appearing 56 y.o. female, in NAD Neuro: Awake, alert Chest: Chest rise symmetric, respirations non-labored Cardiac: No pedal edema, no posterior calf tenderness Back: Prineo dressing intact with silk tape over most of it; dressing removed, incision flat and well approximated - Superior aspect of the incision healing well - 1cm area in the inferior portion of the incision with yellow eschar; no surrounding erythema, no drainage - No fluid collection; no expressible fluid Skin: Warm and dry MSK: Muscle Group Right Left Hip Flexion 5 5 Knee Extension 5 5 Knee Flexion 5 5 Dorsiflexion 5 5 Plantar Flexion 5 5 Sensation intact to light touch to bilateral lower extremities without areas of diminished sensation. Ambulates throughout the room without difficulties; slow to stand. documented in this [id number] History of Present illness Narrative* Delmy Goldman RN - 01/20/2022 1:35 PM EST Patient presents today for post op wound check. Old dressing removed small amount of dried dark reddrainage noted. Incision well approximated, no drainage noted, no redness or edema noted. Patient instructed if dressing starts to curl on edges, trim with clean scissors until dressing falls off. Understands to call with any changes or drainage. documented in this [id number] Miscellaneous Notes* Op Note - Edgar Dhaliwal MD - 01/13/2022 12:21 PM EST VERITO BRENNAN [facility] [id number] 1965 DATE 01/13/2022 OPERATIVE REPORT SURGEON EDGAR DHALIWAL MD PREOPERATIVE DIAGNOSIS Right L2-L3 disk herniation. POSTOPERATIVE DIAGNOSIS Right L2-L3 disk herniation. PROCEDURE Right L2-L3 hemilaminotomy, foraminotomy and diskectomy using minimally invasive approach. ANESTHESIA General. INDICATIONS Verito Brennan is a 56-year-old female suffering from over 10 months of severe right sciatica secondary to a right L2-L3 disk herniation as evidenced on MRI imaging. She has failed conservative measures and now presents for diskectomy. DESCRIPTION OF PROCEDURE The procedure was performed in OR #2. The patient was intubated and general anesthesia was established. An appropriate time-out was performed. The neurosurgery, anesthesiology and nursing teams all agreed with the patient's identity and planned procedure. After intubation and establishing general anesthesia, she was rotated in the prone position on a Seven spine frame taking great care to pad all pressure points. An appropriate time-out was performed. The neurosurgery, anesthesiology and nursing teams all agreed with the patient's identity and planned procedure. She received 900 mg of clindamycin at the onset of procedure as well as 1000 mg of IV Tylenol. After cleansing the lumbosacral area with alcohol and prepping with ChloraPrep, needles were placed at the L2 and L3 pedicular regions as verified by fluoroscopy. The skin was marked, needles were removed and the lumbosacral area re-prepped and draped in usual sterile fashion. The proposed incision site was infiltrated with 10 cc of 1:1 mixture of 0.5% Marcaine plain with 1% lidocaine with epinephrine. A paramedian Britt incision was then made spanning from the right L2-L3 paramedian region approximately 18 mm to the right of midline. Points of bleeding were controlled with bipolar cautery. Monopolar cautery was then used to slit the lumbodorsal fascia and to initiate separation and dissection between the multifidus and longissimus muscles bilaterally. Various progressive dilators were then used to further approach the L2-L3 right laminar interface and facet joint interface and then finally a 50 mm x 22 mm minimally invasive Brownfield tube was then docked at the right L2-L3 interlaminar area. Fluoroscopy was then brought in and used to confirm the location of the tube dissector and Saint George dissector spanning the right L2-L3 disk space. Next, the Midas-Andrez drill was then used to thin the inferior lamina of L2 and the superior lamina of L3 and to initiate a mesial facetectomy taking great care to preserve the facet joint as well as facet joint capsule as best as possible. Various sizes of curettes and Kerrison rongeurs were then used to complete the right L2- L3 hemilaminotomy. Foraminotomy was then performed along the course of the L3 root. Next, the operating microscope was brought into use and under 40X magnification continuous zoom focusing, diskectomy was performed. There was a small free fragment of disk material abutting the shoulder of the descending L3 root through a rent and the disk and posterior longitudinal ligament. Under cover of a Saint George 4 root retractor, the L3 root and dura was medialized and bipolar coagulation was used to first control epidural veins. Eleven blade was then used to open the L2-L3 disk space. Various sizes of Corie curettes and pituitary graspers were then used to debulk the disk. Disk specimen was sent for permanent section analysis in formalin labeled L2-L3 disk. Further fragments of disk material were then resected until there was no evidence of further bulging or free fragments that were obtainable. The site was gently packed with Floseal and thrombin-soaked Gelfoam. Hemostasis was excellent. Thrombin-soaked Gelfoam and Floseal were then irrigated away completely. 450 cc of IrriSept was then used to irrigate the operative field. At no time was there any evidence of cerebrospinal fluid leakage. Hemostasis was excellent. At the completion of decompression the thecal sac and the L2-L3 interlaminar area and the L3 foramen were free of any compression. 40 mg of Depo-Medrol was instilled over the course of the lateral recess and the L3 descending root. Self-retaining tubular retractor was removed. The fascia was closed with multiple inverted interrupted 0 Vicryl suture. The deep dermal was closed with multiple inverted interrupted 2-0 Vicryl suture. The skin was closed running 4-0 Monocryl subcuticular suture followed by closure of the skin with Exofin and covered with Aquacel antibacterial dressing. The patient tolerated the procedure well. She was returned to a supine position, extubated and transferred to PACU in stable condition. MD Charmaine FUNK 01/13/2022 10:25 [id number] T 01/13/2022 12:29 [facility]/MODL * Brief Op Note - Edgar Dhaliwal MD - 01/13/2022 10:35 AM EST Brief Post Operative Note Patient Name: Verito Brennan : 1965 (56 y.o.) Date of Service: 01/13/2022 CSN: [id number] Procedure(s): Right L2-3 Minimally Invasive Hemilaminectomy, Foraminotomy, and Discectomy Pre-Operative Diagnoses: * Lumbar disc herniation with radiculopathy [M51.16] Post-Operative Diagnoses: * Lumbar disc herniation with radiculopathy [M51.16] Surgeon(s) and Role: * Edgar Dhaliwal MD - Primary Anesthesiologist: Alonso Segundo MD Anesthesiologist Plant Cytologist: NANI Mclean Test Skein Winder: Janeen Krishnan RN Family Services Manager: Nasima Amaral, TECHNOLOGIST Test Skein Winder Relief: Tamie Zuñiga RN Scrub Person: Teressa Huff RN Scrub Person Assist: ST Hedy Operative findings: Small free fragment disc herniation Intra and immediate post-operative complications: None Type of anesthesia used: General Estimated blood loss: 50 mL Estimated urine output: Refer to surgical log Specimen(s): ID Type Source Tests Collected by Time Destination A : L2-3 Tissue Intervertebral Disc, Please Specify TISSUE EXAM Edgar Dhaliwal MD 01/13/2022 0946 Implant(s): Implant Name Type Inv. Item Serial No. Underwriter Mortgage Loan Lot No. LRB No. Used Action SEALANT 10ML HEMOSTATIC MATRIX FAST PREP FLOSEAL - SNA SEALANT 10ML HEMOSTATIC MATRIX FAST PREP FLOSEAL NA [employer] [id number] N/A 1 Implanted HEMOSTAT 4 X 8IN SURGICEL - SNA HEMOSTAT 4 X 8IN SURGICEL NA ETHICON [id number] N/A 1 Implanted HEMOSTAT 2 X 4IN SURGICEL FIBRILLAR - SNA HEMOSTAT 2 X 4IN SURGICEL FIBRILLAR NA ETHICON [id number] N/A 1 Implanted HEMOSTAT 8 X 12.5CM X 10MM SURGIFOAM GELATIN SPONGE - SNA HEMOSTAT 8 X 12.5CM X 10MM SURGIFOAM GELATIN SPONGE NA ETHICON [id number] N/A 1 Implanted Drain(s): * No LDAs found * Wound(s): Wound 01/13/22 1 Incision Lumbar Spine (Active) Wound Closure Sutures;Surgical Adhesive 12/06/21 0002 Edgar Dhaliwal MD 01/13/2022 10:35 AM documented in this [id number] Note* Op Note - Edgar Dhaliwal MD - 01/13/2022 12:21 PM EST VERITO BRENNAN [facility] [id number] N [id number] 1965 DATE 01/13/2022 OPERATIVE REPORT SURGEON EDGAR DHALIWAL MD PREOPERATIVE DIAGNOSIS Right L2-L3 disk herniation. POSTOPERATIVE DIAGNOSIS Right L2-L3 disk herniation. PROCEDURE Right L2-L3 hemilaminotomy, foraminotomy and diskectomy using minimally invasive approach. ANESTHESIA General. INDICATIONS Verito Brennan is a 56-year-old female suffering from over 10 months of severe right sciatica secondary to a right L2-L3 disk herniation as evidenced on MRI imaging. She has failed conservative measures and now presents for diskectomy. DESCRIPTION OF PROCEDURE The procedure was performed in OR #2. The patient was intubated and general anesthesia was established. An appropriate time-out was performed. The neurosurgery, anesthesiology and nursing teams all agreed with the patient's identity and planned procedure. After intubation and establishing general anesthesia, she was rotated in the prone position on a Seven spine frame taking great care to pad all pressure points. An appropriate time-out was performed. The neurosurgery, anesthesiology and nursing teams all agreed with the patient's identity and planned procedure. She received 900 mg of clindamycin at the onset of procedure as well as 1000 mg of IV Tylenol. After cleansing the lumbosacral area with alcohol and prepping with ChloraPrep, needles were placed at the L2 and L3 pedicular regions as verified by fluoroscopy. The skin was marked, needles were removed and the lumbosacral area re-prepped and draped in usual sterile fashion. The proposed incision site was infiltrated with 10 cc of 1:1 mixture of 0.5% Marcaine plain with 1% lidocaine with epinephrine. A paramedian Britt incision was then made spanning from the right L2-L3 paramedian region approximately 18 mm to the right of midline. Points of bleeding were controlled with bipolar cautery. Monopolar cautery was then used to slit the lumbodorsal fascia and to initiate separation and dissection between the multifidus and longissimus muscles bilaterally. Various progressive dilators were then used to further approach the L2-L3 right laminar interface and facet joint interface and then finally a 50 mm x 22 mm minimally invasive Elia tube was then docked at the right L2-L3 interlaminar area. Fluoroscopy was then brought in and used to confirm the location of the tube dissector and Saint George dissector spanning the right L2-L3 disk space. Next, the Midas-Andrez drill was then used to thin the inferior lamina of L2 and the superior lamina of L3 and to initiate a mesial facetectomy taking great care to preserve the facet joint as well as facet joint capsule as best as possible. Various sizes of curettes and Kerrison rongeurs were then used to complete the right L2- L3 hemilaminotomy. Foraminotomy was then performed along the course of the L3 root. Next, the operating microscope was brought into use and under 40X magnification continuous zoom focusing, diskectomy was performed. There was a small free fragment of disk material abutting the shoulder of the descending L3 root through a rent and the disk and posterior longitudinal ligament. Under cover of a Saint George 4 root retractor, the L3 root and dura was medialized and bipolar coagulation was used to first control epidural veins. Eleven blade was then used to open the L2-L3 disk space. Various sizes of Corie curettes and pituitary graspers were then used to debulk the disk. Disk specimen was sent for permanent section analysis in formalin labeled L2-L3 disk. Further fragments of disk material were then resected until there was no evidence of further bulging or free fragments that were obtainable. The site was gently packed with Floseal and thrombin-soaked Gelfoam. Hemostasis was excellent. Thrombin-soaked Gelfoam and Floseal were then irrigated away completely. 450 cc of IrriSept was then used to irrigate the operative field. At no time was there any evidence of cerebrospinal fluid leakage. Hemostasis was excellent. At the completion of decompression the thecal sac and the L2-L3 interlaminar area and the L3 foramen were free of any compression. 40 mg of Depo-Medrol was instilled over the course of the lateral recess and the L3 descending root. Self-retaining tubular retractor was removed. The fascia was closed with multiple inverted interrupted 0 Vicryl suture. The deep dermal was closed with multiple inverted interrupted 2-0 Vicryl suture. The skin was closed running 4-0 Monocryl subcuticular suture followed by closure of the skin with Exofin and covered with Aquacel antibacterial dressing. The patient tolerated the procedure well. She was returned to a supine position, extubated and transferred to PACU in stable condition. EDGAR DHALIWAL MD D 01/13/2022 10:25 [id number] T 01/13/2022 12:29 [facility]/MODL [id number] Hospital Discharge instructions* Discharge Instructions* Donya Tadeo RN - 01/13/2022 10:43 AM EST GENERAL POST-OPERATIVE PATIENT INSTRUCTIONS ANESTHESIA PRECAUTIONS: A responsible adult must stay with you for at least 24 hours after surgery. You may feel light headed,, dizzy, or nauseated during this time. Do not operate a vehicle (car, bike, motorcycle, swimming instructor) machinery or power tools. Do not make any important decisions or drink any alcoholic beverages for 24 hours. Children should remain quiet today. No riding of bicycles, motorcycles, skateboards, playing on swings etc. Drink plenty of fluids today. Eat light, small, frequent meals today. Resume regular diet tomorrow. FOLLOW-UP: Please make an appointment with your physician for follow-up. Call your physician immediately if you have any fevers greater than 101, drainage from your wound that is not clear or looks infected, persistent bleeding, increasing abdominal pain, problems urinating, or persistent nausea/vomiting. DIET: You may eat any foods that you can tolerate. It is a good idea to eat a high fiber diet and take in plenty of fluids to prevent constipation. If you do become constipated you may want to take amild laxative or take ducolax tablets on a daily basis until your bowel habits are regular. Constipation can be very uncomfortable, along with straining, after recent surgery. ACTIVITY: You are encouraged to cough and deep breathe or use your incentive spirometer if you weregiven one, every 15-30 minutes when awake. This will help prevent respiratory complications and lowgrade fevers post-operatively if you had a general anesthetic. You are encouraged to walk and engage in light activity for the next two weeks. MEDICATIONS: Try to take narcotic medications and anti-inflammatory medications, such as ibuprofen,naprosyn, etc., with food. This will minimize stomach upset from the medication. Should you developnausea and vomiting from the pain medication, or develop a rash, please discontinue the medication and contact your physician. You should not drive, make important decisions, or operate machinery when taking narcotic pain medication. Do not take tylenol or tylenol products with narcotic medications. QUESTIONS: Please feel free to call your physician or the hospital tower loader operator if you have any questions, and they will be glad to assist you. documented in this [id number] Hospital course Narrative* Edgar Dhaliwal MD - 01/13/2022 10:39 AM EST DISCHARGE SUMMARY Patient: Verito Brennan Date of : 1965 Site: [facility] Provider: Clair Dahl MD Admit Date: 01/13/2022 Discharge Date/Time: 01/13/22 Morning Disposition: Home Clinical Summary Hospital Course: Verito Brennan is a 56 y.o. female patient of Clair Dahl MD with a history of right proximal leg pain groin and lateral thigh and hip pain secondary to right L2-L3 disc herniation. She failedconservative measures and presented for discectomy. On 01/13/2022 she underwent uneventful right L2-L3 minimally invasive heme laminotomy foraminotomy and discectomy. The patient tolerated the seizure well. She was observed in PACU until discharge criteria were met and was discharged home in good condition. Discharge Diagnoses: Right L2-L3 disc herniation. Coronary artery disease. Tobaccoism. Surgeries: 01/13/22 Right L2-3 Minimally Invasive Hemilaminectomy, Foraminotomy, and Discectomy Consults: No orders of the defined types were placed in this encounter. Allergies: Penicillins Discharge Diet: Resume home diet Condition: Good Discharge Medications: Discharge Medications New Medications Details cyclobenzaprine 10 MG tablet Commonly known as: FLEXERIL Take 1 (one) tablet (10 mg total) by mouth 3 (three) times a day as needed for muscle spasms . Quantity: 30 tablet oxyCODONE-acetaminophen 5-325 mg per tablet Commonly known as: PERCOCET Take 1 (one) tablet by mouth every 6 (six) hours as needed for pain (Days supply per fill: 3) . Quantity: 12 tablet Modified Medications Details atorvastatin 20 MG tablet Commonly known as: LIPITOR Take 1 (one) tablet (20 mg total) by mouth daily . Quantity: 30 tablet metoprolol succinate 50 MG 24 hr tablet Commonly known as: TOPROL-XL Take 1.5 (one and a half) tablets (75 mg total) by mouth daily . Quantity: 45 tablet Medications To Continue Details ALPRAZolam 0.25 MG tablet Commonly known as: XANAX Take 0.25 mg by mouth 3 (three) times a day as needed . aspirin 81 MG EC tablet Take 1 (one) tablet (81 mg total) by mouth daily PM . diphenhydrAMINE 25 mg tablet Commonly known as: BENADRYL Take 25 mg by mouth nightly as needed for sleep . Entresto 24-26 mg per tablet Generic drug: sacubitriL-valsartan Take 1 (one) tablet by mouth 2 (two) times a day . Quantity: 180 tablet ibuprofen 800 MG tablet Commonly known as: ADVIL,MOTRIN Take 600 mg by mouth 3 (three) times a day as needed . loratadine 10 mg Tab 10 mg, pseudoePHEDrine 120 mg TbER 120 mg Take by mouth as needed . Physician(s) Family Provider: Clair Dahl MD, Address: [address] [place] [address] Follow Up: No follow-up provider specified. Additional Information: Follow-up neurosurgery clinic in 1 week. No tub bathing is hot tubs liftinggreater than 5 pounds or [address] until seen back. Keep incision site clean and dry and dressings intact. Okay to shower on 01/15/2022. Patient instructions, including activity, were given to the patient/family at discharge. Please seethe After Visit Summary in the electronic medical record for details. Time spent on discharge: < 30 minutes Completed by: Edgar Dhaliwal MD on 01/13/22, 10:39 AM documented in this [id number] Note* Brief Op Note - Edgar Dhaliwal MD - 01/13/2022 10:35 AM EST Brief Post Operative Note Patient Name: Verito Brennan : 1965 (56 y.o.) Date of Service: 01/13/2022 [facility]: [id number] Procedure(s): Right L2-3 Minimally Invasive Hemilaminectomy, Foraminotomy, and Discectomy Pre-Operative Diagnoses: * Lumbar disc herniation with radiculopathy [M51.16] Post-Operative Diagnoses: * Lumbar disc herniation with radiculopathy [M51.16] Surgeon(s) and Role: * Edgar Dhaliwal MD - Primary Anesthesiologist: Alonso Segundo MD Anesthesiologist Plant Cytologist: NANI Mclean Test Skein Winder: Janeen Krishnan RN Family Services Manager: Nasima Amaral, TECHNOLOGIST Test Skein Winder Relief: Tamie Zuñiga RN Scrub Person: Teressa Huff RN Scrub Person Assist: ST Hedy Operative findings: Small free fragment disc herniation Intra and immediate post-operative complications: None Type of anesthesia used: General Estimated blood loss: 50 mL Estimated urine output: Refer to surgical log Specimen(s): ID Type Source Tests Collected by Time Destination A : L2-3 Tissue Intervertebral Disc, Please Specify TISSUE EXAM Edgar Dhaliwal MD 01/13/2022 0946 Implant(s): Implant Name Type Inv. Item Serial No. Underwriter Mortgage Loan Lot No. LRB No. Used Action SEALANT 10ML HEMOSTATIC MATRIX FAST PREP FLOSEAL - SNA SEALANT 10ML HEMOSTATIC MATRIX FAST PREP FLOSEAL NA [employer] [id number] N/A 1 Implanted HEMOSTAT 4 X 8IN SURGICEL - SNA HEMOSTAT 4 X 8IN SURGICEL NA ETHICON [id number] N/A 1 Implanted HEMOSTAT 2 X 4IN SURGICEL FIBRILLAR - SNA HEMOSTAT 2 X 4IN SURGICEL FIBRILLAR NA ETHICON [id number] N/A 1 Implanted HEMOSTAT 8 X 12.5CM X 10MM SURGIFOAM GELATIN SPONGE - SNA HEMOSTAT 8 X 12.5CM X 10MM SURGIFOAM GELATIN SPONGE NA ETHICON [id number] N/A 1 Implanted Drain(s): * No LDAs found * Wound(s): Wound 01/13/22 1 Incision Lumbar Spine (Active) Wound Closure Sutures;Surgical Adhesive 12/06/21 0002 Edgar Dhaliwal MD 01/13/2022 10:35 AM [id number] Attending History and physical note* Edgar Dhaliwal MD - 01/13/2022 7:57 AM EST INTERVAL HISTORY AND PHYSICAL Patient Name: Verito Brennan Admit Date: [id number] MR #: [id number] : 1965 The H&P has been reviewed and the patient has been examined. I concur with the findings of the H&P. There are no significant changes. It is appropriate to proceed with the planned procedure. Edgar Dhaliwal MD 01/13/2022 7:57 AM Source Note - Edgar Dhaliwal MD - 01/13/2022 7:54 AM EST Neurosurgery history and physical. Chief complaint. Right L2-3 disc herniation. VICENTE Sellers is a 56-year-old female who presented to me in May 2021 with complaints of right sciatica secondary to right L2-L3 disc herniation. The patient had been seeing cardiology as she was arranged for surgical intervention, but has a history of coronary artery disease and heart failure. Cardiology work-up included left heart catheterization which which demonstrated nonobstructive coronary artery disease. Her ejection fraction had now improved to 50 to 55% spontaneously with medical management. She was subsequently cleared by cardiology for spinal surgical intervention. She also has is dextroscoliosis apex L3-4 and L4-5 segments. She did have a spinal fracture when she was younger, butrecovered her neurologic function completely. She has not been able to work this summer because of her right sciatica which persists. She denies having had fallen. She continues to have issues with right hip pain that radiates to the proximal right lateral thigh. She denies any giveaway weakness. She denies any bowel or bladder incontinence. Her surgery was initially delayed by her cardiac work-up, but she has ultimately been cleared for surgical procedure today. Past medical history significant for coronary artery disease. Hypertension. Tobacco use abuse. And medical history is negative for known neuropathy. Allergy to penicillin. Medications reviewed in MAY. Review of Systems Hypertension. History of prior CHF now recovered. Tobacco abuse. Coronary artery disease. No intolerance to Percocet noted. No recent colds. No COVID-19 symptoms. No chest pain or dyspnea. Psychosocial review. The patient lives in the region has supportive family. Physical Exam Awake alert oriented pleasant female in no obvious acute distress. Speech and language function normal. Recent memory is intact. Fund knowledge is excellent. Straight leg raising is positive in the right at 45 degrees iliopsoas flexion cause right buttock pain. Straight leg raising is negative on the left. Power at the bilateral iliopsoas gluteal quads of hamstrings of abductor's of adductor's and dorsi and plantar flexors the feet are 5-5 and equal. Light touch is intact in bilateral extremities. She has significant tenderness to palpation over the entire right L2-L5 paramedian spinal region. However the skin is clean warm and dry over this area with no pseudomeningocele erythema or rash. Gait and station is normal. Forward bending is limited somewhat by right sciatica but extension of the lumbar spine is normal. Lungs are clear. Cardiac exam reveals a regular rate and rhythm. She has full range of motion the head and neck. Light touch is intact in the bilateral thighs both anteriorly and laterally. Abdomen is supple and nontender. No jugular venous distention. No tremor of the upper or lower extremities. No ankle clonus. Impression Right L2-L3 disc herniation with persistent sciatica. Plan At this point time the patient wishes to proceed with surgical intervention. To that end I would recommend a right L2-L3 minimally invasive hemilaminotomy foraminotomy and discectomy. We also did discuss the fact that she does have scoliosis of the spine maximal L3-4-5, and is impossible to predicthow much of this can be causing background axial lumbar pain issues for her. However repairing thisproblem would be of much more difficult and much more aggressive and invasive procedure than the discectomy. I do believe it is reasonable to start with a discectomy and see how much relief she gets from this. She is also in agreement with that plan. I discussed the risk of lumbar discectomy including stroke DVT pulm embolism myocardial infarction, surgical site infection requiring debridement long-term IV antibiotic, CSF leakage which could require reexploration, seroma formation, epidural hematoma, and temporary or permanent neurologic disability, as well as chronic pain. Also discussed with her that with the discectomy there is a perhaps a 10 to 15% chance of recurrent disc herniation causing the same symptoms or even magnify symptoms, as well as spinal instability. She understands these risks and wished to proceed with right L2-L3 discectomy. Plan for overall disposition will be to go home later this afternoon after surgery pending her recovery from anesthesia. Edgar Dhaliwal MD [id number] History and physical note* Edgar Dhaliwal MD - 01/13/2022 7:57 AM EST INTERVAL HISTORY AND PHYSICAL Patient Name: Verito Brennan Admit Date: [id number] MR #: [id number] : 1965 The H&P has been reviewed and the patient has been examined. I concur with the findings of the H&P. There are no significant changes. It is appropriate to proceed with the planned procedure. Edgar Dhaliwal MD 01/13/2022 7:57 AM Source Note - Edgar Dhaliwal MD - 01/13/2022 7:54 AM EST Neurosurgery history and physical. Chief complaint. Right L2-3 disc herniation. VICENTE Sellers is a 56-year-old female who presented to me in May 2021 with complaints of right sciatica secondary to right L2-L3 disc herniation. The patient had been seeing cardiology as she was arranged for surgical intervention, but has a history of coronary artery disease and heart failure. Cardiology work-up included left heart catheterization which which demonstrated nonobstructive coronary artery disease. Her ejection fraction had now improved to 50 to 55% spontaneously with medical management. She was subsequently cleared by cardiology for spinal surgical intervention. She also has is dextroscoliosis apex L3-4 and L4-5 segments. She did have a spinal fracture when she was younger, butrecovered her neurologic function completely. She has not been able to work this summer because of her right sciatica which persists. She denies having had fallen. She continues to have issues with right hip pain that radiates to the proximal right lateral thigh. She denies any giveaway weakness. She denies any bowel or bladder incontinence. Her surgery was initially delayed by her cardiac work-up, but she has ultimately been cleared for surgical procedure today. Past medical history significant for coronary artery disease. Hypertension. Tobacco use abuse. And medical history is negative for known neuropathy. Allergy to penicillin. Medications reviewed in MAR. Review of Systems Hypertension. History of prior CHF now recovered. Tobacco abuse. Coronary artery disease. No intolerance to Percocet noted. No recent colds. No COVID-19 symptoms. No chest pain or dyspnea. Psychosocial review. The patient lives in the region has supportive family. Physical Exam Awake alert oriented pleasant female in no obvious acute distress. Speech and language function normal. Recent memory is intact. Fund knowledge is excellent. Straight leg raising is positive in the right at 45 degrees iliopsoas flexion cause right buttock pain. Straight leg raising is negative on the left. Power at the bilateral iliopsoas gluteal quads of hamstrings of abductor's of adductor's and dorsi and plantar flexors the feet are 5-5 and equal. Light touch is intact in bilateral extremities. She has significant tenderness to palpation over the entire right L2-L5 paramedian spinal region. However the skin is clean warm and dry over this area with no pseudomeningocele erythema or rash. Gait and station is normal. Forward bending is limited somewhat by right sciatica but extension of the lumbar spine is normal. Lungs are clear. Cardiac exam reveals a regular rate and rhythm. She has full range of motion the head and neck. Light touch is intact in the bilateral thighs both anteriorly and laterally. Abdomen is supple and nontender. No jugular venous distention. No tremor of the upper or lower extremities. No ankle clonus. Impression Right L2-L3 disc herniation with persistent sciatica. Plan At this point time the patient wishes to proceed with surgical intervention. To that end I would recommend a right L2-L3 minimally invasive hemilaminotomy foraminotomy and discectomy. We also did discuss the fact that she does have scoliosis of the spine maximal L3-4-5, and is impossible to predicthow much of this can be causing background axial lumbar pain issues for her. However repairing thisproblem would be of much more difficult and much more aggressive and invasive procedure than the discectomy. I do believe it is reasonable to start with a discectomy and see how much relief she gets from this. She is also in agreement with that plan. I discussed the risk of lumbar discectomy including stroke DVT pulm embolism myocardial infarction, surgical site infection requiring debridement long-term IV antibiotic, CSF leakage which could require reexploration, seroma formation, epidural hematoma, and temporary or permanent neurologic disability, as well as chronic pain. Also discussed with her that with the discectomy there is a perhaps a 10 to 15% chance of recurrent disc herniation causing the same symptoms or even magnify symptoms, as well as spinal instability. She understands these risks and wished to proceed with right L2-L3 discectomy. Plan for overall disposition will be to go home later this afternoon after surgery pending her recovery from anesthesia. Edgar Dhaliwal MD * Edgar Dhaliwal MD - 01/13/2022 7:54 AM EST Neurosurgery history and physical. Chief complaint. Right L2-3 disc herniation. VICENTE Sellers is a 56-year-old female who presented to me in May 2021 with complaints of right sciatica secondary to right L2-L3 disc herniation. The patient had been seeing cardiology as she was arranged for surgical intervention, but has a history of coronary artery disease and heart failure. Cardiology work-up included left heart catheterization which which demonstrated nonobstructive coronary artery disease. Her ejection fraction had now improved to 50 to 55% spontaneously with medical management. She was subsequently cleared by cardiology for spinal surgical intervention. She also has is dextroscoliosis apex L3-4 and L4-5 segments. She did have a spinal fracture when she was younger, butrecovered her neurologic function completely. She has not been able to work this summer because of her right sciatica which persists. She denies having had fallen. She continues to have issues with right hip pain that radiates to the proximal right lateral thigh. She denies any giveaway weakness. She denies any bowel or bladder incontinence. Her surgery was initially delayed by her cardiac work-up, but she has ultimately been cleared for surgical procedure today. Past medical history significant for coronary artery disease. Hypertension. Tobacco use abuse. And medical history is negative for known neuropathy. Allergy to penicillin. Medications reviewed in MAR. Review of Systems Hypertension. History of prior CHF now recovered. Tobacco abuse. Coronary artery disease. No intolerance to Percocet noted. No recent colds. No COVID-19 symptoms. No chest pain or dyspnea. Psychosocial review. The patient lives in the region has supportive family. Physical Exam Awake alert oriented pleasant female in no obvious acute distress. Speech and language function normal. Recent memory is intact. Fund knowledge is excellent. Straight leg raising is positive in the right at 45 degrees iliopsoas flexion cause right buttock pain. Straight leg raising is negative on the left. Power at the bilateral iliopsoas gluteal quads of hamstrings of abductor's of adductor's and dorsi and plantar flexors the feet are 5-5 and equal. Light touch is intact in bilateral extremities. She has significant tenderness to palpation over the entire right L2-L5 paramedian spinal region. However the skin is clean warm and dry over this area with no pseudomeningocele erythema or rash. Gait and station is normal. Forward bending is limited somewhat by right sciatica but extension of the lumbar spine is normal. Lungs are clear. Cardiac exam reveals a regular rate and rhythm. She has full range of motion the head and neck. Light touch is intact in the bilateral thighs both anteriorly and laterally. Abdomen is supple and nontender. No jugular venous distention. No tremor of the upper or lower extremities. No ankle clonus. Impression Right L2-L3 disc herniation with persistent sciatica. Plan At this point time the patient wishes to proceed with surgical intervention. To that end I would recommend a right L2-L3 minimally invasive hemilaminotomy foraminotomy and discectomy. We also did discuss the fact that she does have scoliosis of the spine maximal L3-4-5, and is impossible to predicthow much of this can be causing background axial lumbar pain issues for her. However repairing thisproblem would be of much more difficult and much more aggressive and invasive procedure than the discectomy. I do believe it is reasonable to start with a discectomy and see how much relief she gets from this. She is also in agreement with that plan. I discussed the risk of lumbar discectomy including stroke DVT pulm embolism myocardial infarction, surgical site infection requiring debridement long-term IV antibiotic, CSF leakage which could require reexploration, seroma formation, epidural hematoma, and temporary or permanent neurologic disability, as well as chronic pain. Also discussed with her that with the discectomy there is a perhaps a 10 to 15% chance of recurrent disc herniation causing the same symptoms or even magnify symptoms, as well as spinal instability. She understands these risks and wished to proceed with right L2-L3 discectomy. Plan for overall disposition will be to go home later this afternoon after surgery pending her recovery from anesthesia. Edgar Dhaliwal MD documented in this [id number] History and physical note* Edgar Dhaliwal MD - 01/13/2022 7:54 AM EST Neurosurgery history and physical. Chief complaint. Right L2-3 disc herniation. VICENTE Sellers is a 56-year-old female who presented to me in May 2021 with complaints of right sciatica secondary to right L2-L3 disc herniation. The patient had been seeing cardiology as she was arranged for surgical intervention, but has a history of coronary artery disease and heart failure. Cardiology work-up included left heart catheterization which which demonstrated nonobstructive coronary artery disease. Her ejection fraction had now improved to 50 to 55% spontaneously with medical management. She was subsequently cleared by cardiology for spinal surgical intervention. She also has is dextroscoliosis apex L3-4 and L4-5 segments. She did have a spinal fracture when she was younger, butrecovered her neurologic function completely. She has not been able to work this summer because of her right sciatica which persists. She denies having had fallen. She continues to have issues with right hip pain that radiates to the proximal right lateral thigh. She denies any giveaway weakness. She denies any bowel or bladder incontinence. Her surgery was initially delayed by her cardiac work-up, but she has ultimately been cleared for surgical procedure today. Past medical history significant for coronary artery disease. Hypertension. Tobacco use abuse. And medical history is negative for known neuropathy. Allergy to penicillin. Medications reviewed in MAY. Review of Systems Hypertension. History of prior CHF now recovered. Tobacco abuse. Coronary artery disease. No intolerance to Percocet noted. No recent colds. No COVID-19 symptoms. No chest pain or dyspnea. Psychosocial review. The patient lives in the region has supportive family. Physical Exam Awake alert oriented pleasant female in no obvious acute distress. Speech and language function normal. Recent memory is intact. Fund knowledge is excellent. Straight leg raising is positive in the right at 45 degrees iliopsoas flexion cause right buttock pain. Straight leg raising is negative on the left. Power at the bilateral iliopsoas gluteal quads of hamstrings of abductor's of adductor's and dorsi and plantar flexors the feet are 5-5 and equal. Light touch is intact in bilateral extremities. She has significant tenderness to palpation over the entire right L2-L5 paramedian spinal region. However the skin is clean warm and dry over this area with no pseudomeningocele erythema or rash. Gait and station is normal. Forward bending is limited somewhat by right sciatica but extension of the lumbar spine is normal. Lungs are clear. Cardiac exam reveals a regular rate and rhythm. She has full range of motion the head and neck. Light touch is intact in the bilateral thighs both anteriorly and laterally. Abdomen is supple and nontender. No jugular venous distention. No tremor of the upper or lower extremities. No ankle clonus. Impression Right L2-L3 disc herniation with persistent sciatica. Plan At this point time the patient wishes to proceed with surgical intervention. To that end I would recommend a right L2-L3 minimally invasive hemilaminotomy foraminotomy and discectomy. We also did discuss the fact that she does have scoliosis of the spine maximal L3-4-5, and is impossible to predicthow much of this can be causing background axial lumbar pain issues for her. However repairing thisproblem would be of much more difficult and much more aggressive and invasive procedure than the discectomy. I do believe it is reasonable to start with a discectomy and see how much relief she gets from this. She is also in agreement with that plan. I discussed the risk of lumbar discectomy including stroke DVT pulm embolism myocardial infarction, surgical site infection requiring debridement long-term IV antibiotic, CSF leakage which could require reexploration, seroma formation, epidural hematoma, and temporary or permanent neurologic disability, as well as chronic pain. Also discussed with her that with the discectomy there is a perhaps a 10 to 15% chance of recurrent disc herniation causing the same symptoms or even magnify symptoms, as well as spinal instability. She understands these risks and wished to proceed with right L2-L3 discectomy. Plan for overall disposition will be to go home later this afternoon after surgery pending her recovery from anesthesia. Edgar Dhaliwal MD [id number] History of Present illness Narrative* Audrey Black RN - 01/02/2022 11:39 AM EDT Neurosurgery Pre-Op Education Patient Specific Procedure: Right L2-3 MIS Hemilaminectomy, Foraminotomy and disectomy. Procedure Information Sheet and Spine Book: Provided patient MIS handout. Reviewed procedure in detail, risks and benefits, immediate post-operative expectations, in hospital and home wound care, post-op activity restrictions and recommendations, and pain medications. The patient was advised that he/she may not receive post-op pain medications more than 30 days after their surgery. Medication Review: Medication list reviewed with patient. He/she was provided start or stop dates regarding the following medications: ASA 81mg stop 3 days prior My Chart Information: The patient reports that he/she currently has an active MyChart account that she currently uses andhas no questions about at this time. Smoking Cessation Review: This patient admits to current use of tobacco products. I educated the patient that smoking decreases healing rates and if applicable, can decrease fusion rate. I referred to the tobacco use section of the Spine Guide, which includes additional resources and information regarding smoking, cessation, and it's effects on their upcoming surgery. Consent: The patient reports that they understand the risks and benefits of the procedure as previously reviewed by their physician and consents to the described procedure. The patient verbalized understanding of the above information and had no further questions. The patient was provided my direct contact information as well as the office phone number and surgery nurse's number. documented in this [id number] History of Present illness Narrative* MONTSERRAT Sosa - 12/29/2021 10:00 AM EDT [facility] NAME: Verito Brennan DATE OF : 1965 MEDICAL RECORD#: [id number] Telephone Visit Via Phone Call [facility] (11) [facility] M[facility] [phone] Telephone Visit [facility] 12/29/2021 MONTSERRAT Sosa Provider Location: [facility] Patient Location Geropsychologist: None Patient Location: Patient's Home Patient: Verito Brennan Date of : 1965 (56 y.o. female) PCP: Clair Dahl MD I discussed risks, benefits and alternatives of a telephone visit telemedicine consultation with the patient (and any accompanying persons) including the risks that the patient's personal health details and medical records will be discussed over real-time, synchronous, interactive audio technology,the visit will not be recorded without the express consent of both the provider and the patient, and that there are inherent diagnostic limitations compared to [id number] evaluations. We elected toproceed with the telephone visit telemedicine consultation. The following portions of the patient's history were reviewed and updated as appropriate: She has apast medical history of Hypertension. She does not have any pertinent problems on file. She has a past surgical history that includes orthopedic surgery; Cervical Ablation W/ Laser (1997); Polypectomy (1991); Hemorrhoidectomy (1997); tonsillectomy; hc left heart cath (N/A, 08/23/2021); Cardiac Catheterization (N/A, 08/23/2021); and Cardiac Catheterization (N/A, 08/23/2021). Her family history includes Atrial fibrillation in her brother, father, and maternal aunt; Diabetesin her brother, father, and mother; Heart disease in her brother; Multiple myeloma in her mother. She reports that she has been smoking cigarettes. She has a 2.00 pack-year smoking history. She hasnever used smokeless tobacco. She reports that she does not currently use alcohol. She reports thatshe does not use drugs.. I have spent 20 minutes with the patient reviewing the HPI and Plan of Care. PROCESSOR SOLID PROPELLANT: Vijay Acuna MD TODAY'S DATE: 12/29/2021 Subjective Verito Brennan is a 56 y.o. female with a h/o HFrEF with improvement, back pain, arthritis who was contacted today for her follow up visit to the heart failure clinic. Ms. Brennan presented after an OV with Dr. Acuna. At that visit, she was to get preop clearance forhemilaminectomy, foraminotomy, and discectomy. An echo revealed EF 35%, which was new. She had an abnormal pharmacologic stress nuclear perfusion study suggestive of large septal and apical infarction(s). Ischemia is not demonstrated. We discussed symptoms to monitor and report. She denied congestive symptoms. Her weight has been stable, BPs 122/63-155/88. She denied orthopnea, PND or exercise intolerance. At her first visit, we discussed guideline directed medical therapy for HFrEF. She is on an adequate beta blockade, SONY. She is not on an aldosterone receptor antagonist. or SGLT2i. We discussed the importance of increasing these to their highest tolerated doses to achieve maximal benefit. We discussed Entresto and how it could benefit her. BPs are adequate for transitioning to Entresto. She willstop lisinopril, last dose taken 07/24/2021 and start Entresto 24/26 mg BID 07/26/2021, taking at breakfast and bedtime. She will continue to take Toprol at bedtime. She met with Dr. Acuna. Toprol was increased to 50 mg every day. She is scheduled for a cardiac cath 08/23/2021. At her 08/09/2021 visit, she notes improved exercise tolerance and less fatigue since on Entresto . Her weight is down 4 lbs. She denied congestive symptoms. BPs at home 120-130s systolic. We discussedher upcoming cath. Support was given. Anticipate increasing Entresto or metoprolol in future visits. At her last visit, we discussed her recent cardiac cath . She reports improvement in exercise tolerance, being able to ride her bike 32 minutes daily. She no longer reports chest pressure. BPs at home 102/64-122/83. We discussed GDMT. She will add Farxiga 10 mg every day. Her pharmacy will be contacted for the $0 co pay card. This proved to not be a $0 co pay card and was found to be unaffordable. She met with Dr. Acuna and Toprol was increased to 75 mg every day. Today, her weight is stable and she denied congestive symptoms. We celebrated her improvement in EF. She is no longer riding her bike outside due to the cooler weather. Her treadmill broke and she islooking to replace. She is to have hemilaminectomy 01/13/2022. Ms. Brennan lives alone. She is able to maintain her household, including using a push mower without much difficulty. 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 She has been on disability since then and wants to have back surgery to return to work. We discussed a low sodium meal plan. She met with Analilia Quiroz [facility] to discuss lower sodium choices. We discussed a low level activity plan. We discussed cardiac rehab. She was not interested in Cardiac Rehab. She is limited with activity due to back pain. She has been walking 30 minutes daily on her treadmill at 3 MPH. She also rides her bike around the neighborhood 30 minutes. She reports that she has quit smoking. She was applauded for her efforts. We discussed how sleep apnea contributes to heart failure. 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 She was not interested in a sleep study at present. We will revisit this in the future. Congestive Heart Failure Intake General Data In CHF program?: Yes Heart Failure etiology: Non-ischemic Heart Failure type: Systolic Received HF educational booklet: Pos 6 minute walk in past year: Neg NYHA functional class: II Last Ejection Fraction: 52 Date: 10/30/21 Modality: Catheterization Systolic HF medication titration data On BetaBlocker?: Yes Dosing: Maximally tolerated On SONY/ARB/ARNI: ARNI Dosing: Maximally tolerated On Aldosterone Antagonist?: No On Ivabradine?: No On Digoxin?: No On Hydralazine?: No On Nitrate?: No CARDIAC HISTORY INCLUDES: 10/25/2021 Echo 1. Normal left-ventricular chamber size. Mild concentric left trickle hypertrophy. Systolic function is low-normal with no regional wall motion normalities. Estimate ejection fraction of 50 to 55%. When directly compared to the prior echocardiogram the LV systolic function has improved. 2. Right ventricular chamber dimension is normal. Right ventricular systolic function is normal. 3. No hemodynamically significant valvular disease. 4. There is no pulmonary hypertension, estimated right ventricle systolic pressure is 17 mmHg. 08/23/2021 Cath Mild left ventricular systolic dysfunction with an estimated LV ejection fraction of 45%. 2. Normal left ventricular end-diastolic pressure. 3. Nonobstructive epicardial coronary disease with diffuse plaque involvement 07/05/2021 Echo 1. Mildly dilated LV chamber size. There is mild concentric left ventricular hypertrophy. There is moderately reduced LV systolic function with the entire inferoseptal, entire anteroseptal and apical septal gates being akinetic. The remaining gates are hypokinetic. LVEF by 3D echo of 35%. 2. The left ventricular diastolic function is grade I diastolic dysfunction. 3. Right ventricular chamber dimension is normal. Right ventricular systolic function is normal. 4. There is no hemodynamically significant valve disease. 5. There is borderline pulmonary hypertension, estimated right ventricle systolic pressure is 38 mmHg. 07/21/2021 Spect 1. Abnormal pharmacologic stress nuclear perfusion study suggestive of large septal and apical infarction(s).. Ischemia is not demonstrated. There is severe global LV dysfunction as listed below.. 2. Nondiagnostic pharmacologic ECG portion of stress nuclear perfusion study. Resting ST segment changes. No chest discomfort. No significant arrhythmias. Normal hemodynamic response to Lexiscan. 3. There is global LV dysfunction with segmental variation as detailed below. 4. Resting ejection fraction 26%. Post stress ejection fraction 31% severe left ventricular enlargement. 5. There are large fixed defects of the septum and apical segments. Otherwise homogeneous perfusion. There is GI uptake artifact adjacent to the inferior and apical segments. 6. Overall high-risk study based on SCAI criteria (>3% predicted annual cardiac mortality). Histories: Past Medical History: Diagnosis Date Hypertension Past Surgical History: Procedure Laterality Date CARDIAC CATHETERIZATION N/A 08/23/2021 Procedure: Coronary Angiogram; Surgeon: Rios Verduzco MD; Location: [facility]RE[facility] TECHNICIAN; Service: Cardiovascular CARDIAC CATHETERIZATION N/A 08/23/2021 Procedure: Left Ventriculogram; Surgeon: Rios Verduzco MD; Location: [facility] TREAT TECHNICIAN; Service: Cardiovascular CERVICAL ABLATION W/ LASER 1997 LEFT HEART CATH N/A 08/23/2021 Procedure: Left Heart Cath; Surgeon: Rios Verduzco MD; Location: [facility]AT TREAT TECHNICIAN; Service: Cardiovascular HEMORRHOIDECTOMY 1997 ORTHOPEDIC SURGERY 1 on Left, 2 on Right - last in 2001 POLYPECTOMY 1991 Throat polypectomy TONSILLECTOMY Current Medications: Current Outpatient Medications Medication Sig Dispense Refill ALPRAZolam (XANAX) 0.25 MG tablet Take 0.25 mg by mouth 3 (three) times a day as needed . aspirin 81 MG EC tablet Take 81 mg by mouth daily . atorvastatin (LIPITOR) 20 MG tablet Take 1 (one) tablet (20 mg total) by mouth daily . 30 tablet 11 ibuprofen (ADVIL,MOTRIN) 800 MG tablet Take 600 mg by mouth 3 (three) times a day as needed . metoprolol succinate (TOPROL-XL) 50 MG 24 hr tablet Take 1.5 (one and a half) tablets (75 mg total)by mouth daily . 45 tablet 5 sacubitriL-valsartan (Entresto) 24-26 mg per tablet Take 1 (one) tablet by mouth 2 (two) times a day . 180 tablet 3 diphenhydrAMINE (BENADRYL) 25 mg tablet Take 25 mg by mouth nightly as needed for sleep . loratadine 10 mg Tab 10 mg, pseudoePHEDrine 120 mg TbER 120 mg Take by mouth as needed . No current facility-administered medications for this visit. Allergies Allergen Reactions Penicillins Other reaction(s): Unknown Review of Systems Constitutional: Negative for malaise/fatigue and weight gain. HENT: Negative for congestion. Cardiovascular: Positive for dyspnea on exertion. Negative for chest pain, leg swelling, orthopnea and paroxysmal nocturnal dyspnea. Respiratory: Negative for cough. Musculoskeletal: Positive for back pain. Gastrointestinal: Negative for bloating, constipation and diarrhea. Genitourinary: Negative for dysuria. Psychiatric/Behavioral: Positive for depression. Objective: Vitals: Vitals: 12/29/21 1003 BP: 129/71 Pulse: 70 Weight: 98.9 kg (218 lb) Lab Review: Recent labs reviewed with patient Assessment & Plan: Plan IMPRESSION: HFrEF Etiology: non-ischemic Most recent known EF: 52 Non-ischemic etiology: N/A Stage: B NYHA Class: II No evidence of congestion Essential hypertension: Currently under good control. CAD - 07/21/2021 Spect Abnormal pharmacologic stress nuclear perfusion study suggestive of large septal and apical infarction(s).. Ischemia is not demonstrated 08/23/2021 Cath with nonobstructive CAD Sleep Apnea-will revisit in future PLAN: Patient placed on guideline directed therapy including: SONY/ARB/ARNI Entresto 24/26 mg BID 07/26/2021 BB: Toprol 75 mg QD Aldosterone antagonist no Diuretic no Potassium No SGLT2i Farxiga 10 mg every day unaffordable Medications: No changes Labs to be drawn: recently done Activity goal: walk 30 minutes daily Patient encouraged w/ daily weight and recording. Diet counseling: Patient was counseled on low sodium heart healthy diet. FOLLOW-UP SCHEDULE: Patient is currently scheduled to follow-up with Dr. Acuna Patient will return to see us as needed 20 minutes was spent w/ the patient. Over half of this time was spent in counseling regarding medication therapy, treatments, activity, diet planning including teaching and review of reports with patient. There is collaboration between the [employer] [facility] and the consulting/collaborating physician regarding this patient's plan of care. Dr. Vijay Acuna MD has been updated regarding the patient's status via EMR. Thank you for allowing us to participate in the care of our patient. Please call if you have any further questions. 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 Right L2-3 disc herniation. VICENTE Sellers is a 56-year-old female who presented to me in May 2021 with complaints of right sciatica secondary to right L2-L3 disc herniation. The patient had been seeing cardiology as she was arranged for surgical intervention, but has a history of coronary artery disease and heart failure. Cardiology work-up included left heart catheterization which which demonstrated nonobstructive coronary artery disease. Her ejection fraction had now improved to 50 to 55% spontaneously with medical management. She was subsequently cleared by cardiology for spinal surgical intervention. She also has is dextroscoliosis apex L3-4 and L4-5 segments. She did have a spinal fracture when she was younger, butrecovered her neurologic function completely. She has not been able to work this summer because of her right sciatica which persists. She denies having had fallen. Review of Systems Hypertension. History of prior CHF now recovered. Tobacco abuse. Coronary artery disease. Physical Exam Awake alert oriented pleasant female in no obvious acute distress. Speech and language function normal. Recent memory is intact. Fund knowledge is excellent. Straight leg raising is positive in the right at 45 degrees iliopsoas flexion cause right buttock pain. Straight leg raising is negative on the left. Power at the bilateral iliopsoas gluteal quads of hamstrings of abductor's of adductor's and dorsi and plantar flexors the feet are 5-5 and equal. Light touch is intact in bilateral extremities. She has significant tenderness to palpation over the entire right L2-L5 paramedian spinal region. However the skin is clean warm and dry over this area with no pseudomeningocele erythema or rash. Gait and station is normal. Forward bending is limited somewhat by right sciatica but extension of the lumbar spine is normal. Lungs are clear. Cardiac exam reveals a regular rate and rhythm. She has full range of motion the head and neck. Impression Right L2-L3 disc herniation with persistent sciatica. Plan At this point time the patient wishes to proceed with surgical intervention. To that end I would recommend a right L2-L3 minimally invasive hemilaminotomy foraminotomy and discectomy. We also did discuss the fact that she does have scoliosis of the spine maximal L3-4-5, and is impossible to predicthow much of this can be causing background axial lumbar pain issues for her. However repairing thisproblem would be of much more difficult and much more aggressive and invasive procedure than the discectomy. I do believe it is reasonable to start with a discectomy and see how much relief she gets from this. She is also in agreement with that plan. I discussed the risk of lumbar discectomy including stroke DVT pulm embolism myocardial infarction, surgical site infection requiring debridement long-term IV antibiotic, CSF leakage which could require reexploration, seroma formation, epidural hematoma, and temporary or permanent neurologic disability, as well as chronic pain. Also discussed with her that with the discectomy there is a perhaps a 10 to 15% chance of recurrent disc herniation causing the same symptoms or even magnify symptoms, as well as spinal instability. She understands these risks and wished to proceed with right L2-L3 discectomy. Edgar Dhaliwal MD documented in this [id number] History of Present illness Narrative* Vijay Acuna MD - 11/09/2021 2:27 PM EDT Cardiology Clinic Visit Heart & Vascular [facility] 11/09/2021 Vijay Acuna MD [address] [facility] [id number] Patient: Verito Brennan Date of : 1965 (56 y.o.) Referring Provider: No ref. provider found PCP: Clair Dahl MD Assessment & Plan Verito Brennan is a 56 y.o. woman with history of chronic systolic heart failure, arthritis and back pain who presents to clinic for preoperative risk stratification for hemilaminectomy, foraminotomy, and discectomy. Preoperative risk stratification for hemilaminectomy, foraminotomy and discectomy-according to the NSQIP risk calculator the patient is at low risk for major perioperative cardiovascular events, lessthan 1%. The patient was recently diagnosed with chronic systolic heart failure and underwent an ischemic evaluation. She underwent left heart catheterization which revealed nonobstructive coronary artery disease. With medical management her LVEF has recovered to 50 to 55%. At the current time the patient is stable from cardiac standpoint. She is euvolemic on exam. She has been on chronic beta-april therapy. -At the current time she can proceed to surgery without further cardiac testing. -Continue metoprolol in the perioperative period. -Continue atorvastatin 20 mg daily in the perioperative period. -Can stop aspirin 81 mg 7 days prior if needed. -Recommend monitoring volume status closely in the perioperative period. Chronic systolic HF -with recovery of LVEF. Euvolemic on exam. Non-ischemic. -Continue metoprolol succinate 75 mg daily -Continue Entresto 24-26 mg twice daily Hyperlipidemia-LDL above goal however recently started on atorvastatin, repeat lipid panel ordered Return in about 6 months (around 05/09/2022). Vijay Acuna MD [facility] Non-Invasive Cardiology [facility] Chief Complaint: HF Subjective Verito Brennan is a 56 y.o. woman with history of arthritis and back pain who orginally presented to the clinic for preoperative risk stratification for hemilaminectomy, foraminotomy, and discectomy and was found to have a LBBB. She underwent an echocardiogram which revealed systolif HF with andEF of 35%. She then underwent nuclear stress testing which revealed large septal and apical infarcts with no stress-induced ischemia. However given her cardiomyopathy and prior infarcts we discussed an invasive ischemic evaluation which the patient was agreeable to. She did undergo a left heart catheterization since the last clinic visit which revealed nonobstructive coronary artery disease. LVEFon left heart catheterization was 45%. She now presents to clinic for follow-up. Since last visit she underwent an echocardiogram which revealed recovery of LVEF to 50 to 55%. She reports that she has been feeling well. She denies chest pain. She denies feeling short of breath. She denies lower extremity swelling, PND and orthopnea. She denies palpitations. She denies lightheadedness and dizziness. She denies any episodes of syncope. She reports that she has been exercising by riding her bike for about 30 to 60 minutes at a time. She reports that she has been able to do this without chest pain and shortness of breath. She reports that her activity level seems to be increasing. Review of Systems: Constitution: Negative. HENT: Negative. Cardiovascular: As above. Respiratory: As above. Endocrine: Negative. Skin: Negative. Musculoskeletal: Negative. Gastrointestinal: Negative. Genitourinary: Negative. Neurological: Negative. Psychiatric/Behavioral: Negative. Past Medical History: Diagnosis Date Hypertension Past Surgical History: Procedure Laterality Date CARDIAC CATHETERIZATION N/A 08/23/2021 Procedure: Coronary Angiogram; Surgeon: Rios Verduzco MD; Location: [facility]; Service: Cardiovascular CARDIAC CATHETERIZATION N/A 08/23/2021 Procedure: Left Ventriculogram; Surgeon: Rios Verduzco MD; Location: [facility] TREAT TECHNICIAN; Service: Cardiovascular CERVICAL ABLATION W/ LASER 1997 LEFT HEART CATH N/A 08/23/2021 Procedure: Left Heart Cath; Surgeon: Rios Verduzco MD; Location: [facility]AT TREAT TECHNICIAN; Service: Cardiovascular HEMORRHOIDECTOMY 1997 ORTHOPEDIC SURGERY 1 on Left, 2 on Right - last in 2001 POLYPECTOMY 1991 Throat polypectomy TONSILLECTOMY Family History Problem Relation Age of Onset Diabetes Mother Multiple myeloma Mother Diabetes Father Atrial fibrillation Father Heart disease Brother Atrial fibrillation Brother Diabetes Brother Atrial fibrillation Maternal Aunt Social History Tobacco Use Smoking Status Every Day Packs/day: 0.10 Years: 20.00 Pack years: 2.00 Types: Cigarettes Smokeless Tobacco Never Tobacco Comments smokes 1-2 cigarettes daily Allergies: Penicillins HOME Medications: Current Outpatient Medications on File Prior to Visit Medication Sig ALPRAZolam (XANAX) 0.25 MG tablet Take 0.25 mg by mouth 3 (three) times a day as needed . aspirin 81 MG EC tablet Take 81 mg by mouth daily . atorvastatin (LIPITOR) 20 MG tablet Take 1 (one) tablet (20 mg total) by mouth daily . diphenhydrAMINE (BENADRYL) 25 mg tablet Take 25 mg by mouth nightly as needed for sleep . empagliflozin (Jardiance) 10 mg Tab Take 1 (one) tablet (10 mg total) by mouth daily . ibuprofen (ADVIL,MOTRIN) 800 MG tablet Take 600 mg by mouth 3 (three) times a day as needed . loratadine 10 mg Tab 10 mg, pseudoePHEDrine 120 mg TbER 120 mg Take by mouth as needed . metoprolol succinate (TOPROL-XL) 50 MG 24 hr tablet Take 1.5 (one and a half) tablets (75 mg total)by mouth daily . sacubitriL-valsartan (Entresto) 24-26 mg per tablet Take 1 (one) tablet by mouth 2 (two) times a day . No current facility-administered medications on file prior to visit. Physical Examination: BP 131/84 (BP Location: Left arm, Patient Position: Sitting) Pulse 75 Ht 5' 10 Wt 96.6 kg (213 lb) LMP (LMP Unknown) SpO2 95% BMI 30.56 kg/m Constitutional: Appears well-developed and well-nourished. No distress. HENT: Head: Normocephalic and atraumatic. Eyes: Conjunctivae and EOM are normal. No scleral icterus. Neck: Normal range of motion. Cardiovascular: Normal rate and regular rhythm. Exam reveals no gallop and no friction rub. No murmur heard. No JVP elevation. No LE edema. Pulmonary/Chest: Effort normal and breath sounds normal. No respiratory distress. No wheezes. No rales. Abdominal: Soft. Bowel sounds are normal. There is no abdominal tenderness. Musculoskeletal: Normal range of motion. Neurological: AOx3, moving all ext. Skin: Skin is warm and dry. No rash noted. Psychiatric: Normal mood and affect. Cardiovascular Studies: 10/25/21 TTE Summary 1. Normal left-ventricular chamber size. Mild concentric left trickle hypertrophy. Systolic function is low-normal with no regional wall motion normalities. Estimate ejection fraction of 50 to 55%. When directly compared to the prior echocardiogram the LV systolic function has improved. 2. Right ventricular chamber dimension is normal. Right ventricular systolic function is normal. 3. No hemodynamically significant valvular disease. 4. There is no pulmonary hypertension, estimated right ventricle systolic pressure is 17 mmHg. 05/24/21 ECG Normal sinus rhythm Left bundle branch block Abnormal ECG 07/06/21 TTE Summary 1. Mildly dilated LV chamber size. There is mild concentric left ventricular hypertrophy. There is moderately reduced LV systolic function with the entire inferoseptal, entire anteroseptal and apical septal gates being akinetic. The remaining gates are hypokinetic. LVEF by 3D echo of 35%. 2. The left ventricular diastolic function is grade I diastolic dysfunction. 3. Right ventricular chamber dimension is normal. Right ventricular systolic function is normal. 4. There is no hemodynamically significant valve disease. 5. There is borderline pulmonary hypertension, estimated right ventricle systolic pressure is 38 mmHg. [facility] 07/22/21 Summary 1. Abnormal pharmacologic stress nuclear perfusion study suggestive of large septal and apical infarction(s).. Ischemia is not demonstrated. There is severe global LV dysfunction as listed below.. 2. Nondiagnostic pharmacologic ECG portion of stress nuclear perfusion study. Resting ST segment changes. No chest discomfort. No significant arrhythmias. Normal hemodynamic response to Lexiscan. 3. There is global LV dysfunction with segmental variation as detailed below. 4. Resting ejection fraction 26%. Post stress ejection fraction 31% severe left ventricular enlargement. 5. There are large fixed defects of the septum and apical segments. Otherwise homogeneous perfusion. There is GI uptake artifact adjacent to the inferior and apical segments. 6. Overall high-risk study based on SCAI criteria (>3% predicted annual cardiac mortality). Labs: Lab Results Component Value Date GLUCOSE 89 08/03/2021 CALCIUM 9.6 08/03/2021 NA 140 08/03/2021 K 4.2 08/03/2021 CL 108 08/03/2021 BUN 8 08/03/2021 CREATININE 0.74 08/03/2021 Lab Results Component Value Date WBC 6.79 08/03/2021 HGB 14.0 08/03/2021 HCT 40.9 08/03/2021 MCV 93.8 08/03/2021 PLT 211 08/03/2021 RBC 4.36 08/03/2021 Lab Results Component Value Date CHOL 191 08/03/2021 LDLCALC 122 08/03/2021 TRIG 66 08/03/2021 HDL 56 08/03/2021 documented in this [id number] Instructions* Patient Instructions* Meir Huffman RN - 11/09/2021 2:00 PM EDT How to contact your Care Team: Provider: Vijay Acuna MD Nurse: Meir Huffman RN In case of an emergency please call 911. REFILLS: When in need for refills please call your care team or the office at [phone]. Please include medication name, pharmacy name, and specify 30-day or 90-day supply. Please check with your pharmacy within 24 hours of request for your refill. You must follow up as directed to continue current refills. Thank you documented in this [id number] History of Present illness Narrative* Chely So MA - 10/11/2021 9:24 AM EDT Scanned document documented in this [id number] History of Present illness Narrative* Chely So MA - 10/11/2021 9:23 AM EDT Scanned document documented in this [id number] History of Present illness Narrative* Vijay Acuna MD - 09/15/2021 9:16 AM EDT Cardiology Clinic Visit Heart & Vascular [facility] 09/15/2021 Vijay Acuna MD [address] [place] [id number] Patient: Verito Brennan Date of : 1965 (56 y.o.) Referring Provider: No ref. provider found PCP: Clair Dahl MD Assessment & Plan Verito Brennan is a 56 y.o. woman with history of chronic systolic heart failure, arthritis and back pain who presents to clinic for preoperative risk stratification for hemilaminectomy, foraminotomy, and discectomy. Preoperative risk stratification for hemilaminectomy, foraminotomy and discectomy-according to the NSQIP risk calculator the patient is at low risk for major perioperative cardiovascular events, lessthan 1%. The patient was recently diagnosed with chronic systolic heart failure and underwent an ischemic evaluation. She underwent left heart catheterization which revealed nonobstructive coronary artery disease. At the current time the patient is stable from a heart failure standpoint. She is euvolemic on exam. She has been on her beta-april therapy for greater than 2 weeks. -At the current time she can proceed to surgery without further cardiac testing. If her surgery is going to be greater than 2 weeks the patient will call us and we will try to titrate her metoprolol even further. -Continue metoprolol in the perioperative period. -Continue atorvastatin 20 mg daily in the perioperative period. -Can stop aspirin 81 mg daily in the perioperative period if needed. -Recommend monitoring volume status closely in the perioperative period. Avoid hypovolemia and volume overload in the perioperative period given the patient's history of chronic systolic heart failure. Chronic systolic HF - euvolemic on exam. Non-ischemic. -Continue metoprolol succinate 50 mg daily, review of blood pressure log from home reveals heart rates in the 70s. Will titrate as above if able. -Continue Entresto 24-26 mg twice daily hold off on further titration at the current time due to upcoming surgery. -Repeat TTE ordered for the end of October. Hyperlipidemia-LDL above goal however recently started on atorvastatin, will repeat lipid panel at the next visit. Return in about 6 weeks (around 10/27/2021). Vijay Acuna MD [facility] Non-Invasive Cardiology [facility] Chief Complaint: HF Subjective Verito Brennan is a 56 y.o. woman with history of arthritis and back pain who orginally presented to the clinic for preoperative risk stratification for hemilaminectomy, foraminotomy, and discectomy and was found to have a LBBB. She underwent an echocardiogram which revealed systolif HF with andEF of 35%. She then underwent nuclear stress testing which revealed large septal and apical infarcts with no stress-induced ischemia. However given her cardiomyopathy and prior infarcts we discussed an invasive ischemic evaluation which the patient was agreeable to. She did undergo a left heart catheterization since the last clinic visit which revealed nonobstructive coronary artery disease. LVEFon left heart catheterization was 45%. She now presents to clinic for follow-up. She reports that she has been feeling okay. She denies having chest pain or shortness of breath. She denies lower extremity swelling, PND orthopnea. She denies palpitations. She denies lightheadedness and dizziness. She denies any episodes of syncope. She has been taking her medications without anyissues. Review of Systems: Constitution: Negative. HENT: Negative. Cardiovascular: As above. Respiratory: As above. Endocrine: Negative. Skin: Negative. Musculoskeletal: Negative. Gastrointestinal: Negative. Genitourinary: Negative. Neurological: Negative. Psychiatric/Behavioral: Negative. Past Medical History: Diagnosis Date Hypertension Past Surgical History: Procedure Laterality Date CARDIAC CATHETERIZATION N/A 08/23/2021 Procedure: Coronary Angiogram; Surgeon: Rios Verduzco MD; Location: [facility]; Service: Cardiovascular CARDIAC CATHETERIZATION N/A 08/23/2021 Procedure: Left Ventriculogram; Surgeon: Rios Verduzco MD; Location: [facility]AT TREAT TECHNICIAN; Service: Cardiovascular CERVICAL ABLATION W/ LASER 1997 LEFT HEART CATH N/A 08/23/2021 Procedure: Left Heart Cath; Surgeon: Rios Verduzco MD; Location: [facility]AT TREAT TECHNICIAN; Service: Cardiovascular HEMORRHOIDECTOMY 1997 ORTHOPEDIC SURGERY 1 on Left, 2 on Right - last in 2001 POLYPECTOMY 1991 Throat polypectomy TONSILLECTOMY Family History Problem Relation Age of Onset Diabetes Mother Multiple myeloma Mother Diabetes Father Atrial fibrillation Father Heart disease Brother Atrial fibrillation Brother Diabetes Brother Atrial fibrillation Maternal Aunt Social History Tobacco Use Smoking Status Every Day Years: 20.00 Types: Cigarettes Smokeless Tobacco Never Tobacco Comments smokes 1-2 cigarettes daily Allergies: Penicillins HOME Medications: Current Outpatient Medications on File Prior to Visit Medication Sig ALPRAZolam (XANAX) 0.25 MG tablet Take 0.25 mg by mouth 3 (three) times a day as needed . aspirin 81 MG EC tablet Take 81 mg by mouth daily . atorvastatin (LIPITOR) 20 MG tablet Take 1 (one) tablet (20 mg total) by mouth daily . diphenhydrAMINE (BENADRYL) 25 mg tablet Take 25 mg by mouth nightly as needed for sleep . empagliflozin (Jardiance) 10 mg Tab Take 1 (one) tablet (10 mg total) by mouth daily . ibuprofen (ADVIL,MOTRIN) 800 MG tablet Take 600 mg by mouth 3 (three) times a day as needed . loratadine 10 mg Tab 10 mg, pseudoePHEDrine 120 mg TbER 120 mg Take by mouth as needed . metoprolol succinate (TOPROL-XL) 50 MG 24 hr tablet Take 1 (one) tablet (50 mg total) by mouth daily . sacubitriL-valsartan (Entresto) 24-26 mg per tablet Take 1 (one) tablet by mouth 2 (two) times a day . No current facility-administered medications on file prior to visit. Physical Examination: BP 116/73 (BP Location: Left arm, Patient Position: Sitting, BP Cuff Size: Adult) Pulse 82 Ht 5' 10 Wt 98.4 kg (217 lb) LMP (LMP Unknown) SpO2 95% BMI 31.14 kg/m Constitutional: Appears well-developed and well-nourished. No distress. HENT: Head: Normocephalic and atraumatic. Eyes: Conjunctivae and EOM are normal. No scleral icterus. Neck: Normal range of motion. Cardiovascular: Normal rate and regular rhythm. Exam reveals no gallop and no friction rub. No murmur heard. No JVP elevation. No LE edema. Pulmonary/Chest: Effort normal and breath sounds normal. No respiratory distress. No wheezes. No rales. Abdominal: Soft. Bowel sounds are normal. There is no abdominal tenderness. Musculoskeletal: Normal range of motion. Neurological: AOx3, moving all ext. Skin: Skin is warm and dry. No rash noted. Psychiatric: Normal mood and affect. Cardiovascular Studies: 05/24/21 ECG Normal sinus rhythm Left bundle branch block Abnormal ECG 07/06/21 TTE Summary 1. Mildly dilated LV chamber size. There is mild concentric left ventricular hypertrophy. There is moderately reduced LV systolic function with the entire inferoseptal, entire anteroseptal and apical septal gates being akinetic. The remaining gates are hypokinetic. LVEF by 3D echo of 35%. 2. The left ventricular diastolic function is grade I diastolic dysfunction. 3. Right ventricular chamber dimension is normal. Right ventricular systolic function is normal. 4. There is no hemodynamically significant valve disease. 5. There is borderline pulmonary hypertension, estimated right ventricle systolic pressure is 38 mmHg. [facility] 07/22/21 Summary 1. Abnormal pharmacologic stress nuclear perfusion study suggestive of large septal and apical infarction(s).. Ischemia is not demonstrated. There is severe global LV dysfunction as listed below.. 2. Nondiagnostic pharmacologic ECG portion of stress nuclear perfusion study. Resting ST segment changes. No chest discomfort. No significant arrhythmias. Normal hemodynamic response to Lexiscan. 3. There is global LV dysfunction with segmental variation as detailed below. 4. Resting ejection fraction 26%. Post stress ejection fraction 31% severe left ventricular enlargement. 5. There are large fixed defects of the septum and apical segments. Otherwise homogeneous perfusion. There is GI uptake artifact adjacent to the inferior and apical segments. 6. Overall high-risk study based on SCAI criteria (>3% predicted annual cardiac mortality). Labs: Lab Results Component Value Date GLUCOSE 89 08/03/2021 CALCIUM 9.6 08/03/2021 NA 140 08/03/2021 K 4.2 08/03/2021 CL 108 08/03/2021 BUN 8 08/03/2021 CREATININE 0.74 08/03/2021 Lab Results Component Value Date WBC 6.79 08/03/2021 HGB 14.0 08/03/2021 HCT 40.9 08/03/2021 MCV 93.8 08/03/2021 PLT 211 08/03/2021 RBC 4.36 08/03/2021 Lab Results Component Value Date CHOL 191 08/03/2021 LDLCALC 122 08/03/2021 TRIG 66 08/03/2021 HDL 56 08/03/2021 documented in this [id number] Instructions* Patient Instructions* Meir Huffman RN - 09/15/2021 9:05 AM EDT Please call our office to let us know what Dr. Min office says regarding your surgery If your surgery is > 2 weeks from now, we will probably increase your beta april. If your surgery is < 2 weeks from now, we will keep your beta april at the current dose. We will get a repeat ECHO, depending on when our surgery is scheduled How to contact your Care Team: Provider: Vijay Acuna MD Nurse: Meir Huffman RN In case of an emergency please call 911. REFILLS: When in need for refills please call your care team or the office at [phone]. Please include medication name, pharmacy name, and specify 30-day or 90-day supply. Please check with your pharmacy within 24 hours of request for your refill. You must follow up as directed to continue current refills. Thank you documented in this [id number] History of Present illness Narrative* MONTSERRAT Sosa - 08/31/2021 10:30 AM EDT [facility] NAME: Verito Brennan DATE OF : 1965 MEDICAL RECORD#: [id number] Telephone Visit Via Phone Call [facility] (11) [facility] Marek [facility] [phone] Telephone Visit [facility] 08/31/2021 MONTSERRAT Sosa Provider Location: [address] [place] [address] Patient Location Geropsychologist: None Patient Location: Patient's Home Patient: Verito Brennan Date of : 1965 (56 y.o. female) PCP: Clair Dahl MD I discussed risks, benefits and alternatives of a telephone visit telemedicine consultation with the patient (and any accompanying persons) including the risks that the patient's personal health details and medical records will be discussed over real-time, synchronous, interactive audio technology,the visit will not be recorded without the express consent of both the provider and the patient, and that there are inherent diagnostic limitations compared to [id number] evaluations. We elected toproceed with the telephone visit telemedicine consultation. The following portions of the patient's history were reviewed and updated as appropriate: She has apast medical history of Hypertension. She does not have any pertinent problems on file. She has a past surgical history that includes orthopedic surgery; Cervical Ablation W/ Laser (1997); Polypectomy (1991); Hemorrhoidectomy (1997); tonsillectomy; hc left heart cath (N/A, 08/23/2021); Cardiac Catheterization (N/A, 08/23/2021); and Cardiac Catheterization (N/A, 08/23/2021). Her family history includes Atrial fibrillation in her brother, father, and maternal aunt; Diabetesin her brother, father, and mother; Heart disease in her brother; Multiple myeloma in her mother. She reports that she has been smoking cigarettes. She has never used smokeless tobacco. She reportsprevious alcohol use. She reports that she does not use drugs.. I have spent 20 minutes with the patient reviewing the HPI and Plan of Care. PROCESSOR SOLID PROPELLANT: Vijay Acuna MD TODAY'S DATE: 08/31/2021 Subjective Verito Brennan is a 56 y.o. female with a h/o HFrEF, back pain, arthritis who was contacted today for her follow up visit to the heart failure clinic. Ms. Brennan presented after an OV with Dr. Acuna. At that visit, she was to get preop clearance forhemilaminectomy, foraminotomy, and discectomy. An echo revealed EF 35%, which was new. She had an abnormal pharmacologic stress nuclear perfusion study suggestive of large septal and apical infarction(s). Ischemia is not demonstrated. We discussed symptoms to monitor and report. She denied congestive symptoms. Her weight has been stable, BPs 122/63-155/88. She denied orthopnea, PND or exercise intolerance. At her first visit, we discussed guideline directed medical therapy for HFrEF. She is on an adequate beta blockade, SONY. She is not on an aldosterone receptor antagonist. or SGLT2i. We discussed the importance of increasing these to their highest tolerated doses to achieve maximal benefit. We discussed Entresto and how it could benefit her. BPs are adequate for transitioning to Entresto. She willstop lisinopril, last dose taken 07/24/2021 and start Entresto 24/26 mg BID 07/26/2021, taking at breakfast and bedtime. She will continue to take Toprol at bedtime. She met with Dr. Acuna. Toprol was increased to 50 mg every day. She is scheduled for a cardiac cath 08/23/2021. At her last visit, she notes improved exercise tolerance and less fatigue since on Entresto . Her weight is down 4 lbs. She denied congestive symptoms. BPs at home 120-130s systolic. We discussed herupcoming cath. Support was given. Anticipate increasing Entresto or metoprolol in future visits. Today, we discussed her recent cardiac cath . She reports improvement in exercise tolerance, being able to ride her bike 32 minutes daily. She no longer reports chest pressure. BPs at home 102/64-122/83. We discussed GDMT. She will add Farxiga 10 mg every day. Her pharmacy will be contacted for the$0 co pay card. Ms. Brennan lives alone. She is able to maintain her household, including using a push mower without much difficulty. 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 She has been on disability since then and wants to have back surgery to return to work. We discussed a low sodium meal plan. She met with Analilia ELIZONDO to discuss lower sodium choices. We discussed a low level activity plan. We discussed cardiac rehab. She was not interested in Cardiac Rehab. She is limited with activity due to back pain. She has been walking 30 minutes daily on her treadmill at 3 MPH. She also rides her bike around the neighborhood 30 minutes. She reports that she has quit smoking. She was applauded for her efforts. We discussed how sleep apnea contributes to heart failure. 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 She was not interested in a sleep study at present. We will revisit this in the future. Congestive Heart Failure Intake General Data In CHF program?: Yes Heart Failure etiology: Non-ischemic Heart Failure type: Systolic Received HF educational booklet: Pos 6 minute walk in past year: Neg NYHA functional class: II Last Ejection Fraction: 45 Date: 08/23/21 Modality: Catheterization Systolic HF medication titration data On BetaBlocker?: Yes Dosing: Still being titrated On SONY/ARB/ARNI: ARNI Dosing: Still being titrated On Aldosterone Antagonist?: No On Ivabradine?: No On Digoxin?: No On Hydralazine?: No On Nitrate?: No CARDIAC HISTORY INCLUDES: 08/23/2021 Cath Mild left ventricular systolic dysfunction with an estimated LV ejection fraction of 45%. 2. Normal left ventricular end-diastolic pressure. 3. Nonobstructive epicardial coronary disease with diffuse plaque involvement 07/05/2021 Echo 1. Mildly dilated LV chamber size. There is mild concentric left ventricular hypertrophy. There is moderately reduced LV systolic function with the entire inferoseptal, entire anteroseptal and apical septal gates being akinetic. The remaining gates are hypokinetic. LVEF by 3D echo of 35%. 2. The left ventricular diastolic function is grade I diastolic dysfunction. 3. Right ventricular chamber dimension is normal. Right ventricular systolic function is normal. 4. There is no hemodynamically significant valve disease. 5. There is borderline pulmonary hypertension, estimated right ventricle systolic pressure is 38 mmHg. 07/21/2021 Spect 1. Abnormal pharmacologic stress nuclear perfusion study suggestive of large septal and apical infarction(s).. Ischemia is not demonstrated. There is severe global LV dysfunction as listed below.. 2. Nondiagnostic pharmacologic ECG portion of stress nuclear perfusion study. Resting ST segment changes. No chest discomfort. No significant arrhythmias. Normal hemodynamic response to Lexiscan. 3. There is global LV dysfunction with segmental variation as detailed below. 4. Resting ejection fraction 26%. Post stress ejection fraction 31% severe left ventricular enlargement. 5. There are large fixed defects of the septum and apical segments. Otherwise homogeneous perfusion. There is GI uptake artifact adjacent to the inferior and apical segments. 6. Overall high-risk study based on SCAI criteria (>3% predicted annual cardiac mortality). Histories: Past Medical History: Diagnosis Date Hypertension Past Surgical History: Procedure Laterality Date CARDIAC CATHETERIZATION N/A 08/23/2021 Procedure: Coronary Angiogram; Surgeon: Rios Verduzco MD; Location: [facility]; Service: Cardiovascular CARDIAC CATHETERIZATION N/A 08/23/2021 Procedure: Left Ventriculogram; Surgeon: Rios Verduzco MD; Location: [facility]BR[facility] TECHNICIAN; Service: Cardiovascular CERVICAL ABLATION W/ LASER 1997 LEFT HEART CATH N/A 08/23/2021 Procedure: Left Heart Cath; Surgeon: Rios Verduzco MD; Location: [facility] [facility]RE[facility] TECHNICIAN; Service: Cardiovascular HEMORRHOIDECTOMY 1997 ORTHOPEDIC SURGERY 1 on Left, 2 on Right - last in 2001 POLYPECTOMY 1991 Throat polypectomy TONSILLECTOMY Current Medications: Current Outpatient Medications Medication Sig Dispense Refill ALPRAZolam (XANAX) 0.25 MG tablet Take 0.25 mg by mouth 3 (three) times a day as needed . aspirin 81 MG EC tablet Take 81 mg by mouth daily . atorvastatin (LIPITOR) 20 MG tablet Take 1 (one) tablet (20 mg total) by mouth daily . 30 tablet 11 diphenhydrAMINE (BENADRYL) 25 mg tablet Take 25 mg by mouth nightly as needed for sleep . loratadine 10 mg Tab 10 mg, pseudoePHEDrine 120 mg TbER 120 mg Take by mouth daily . metoprolol succinate (TOPROL-XL) 50 MG 24 hr tablet Take 1 (one) tablet (50 mg total) by mouth daily . 30 tablet 5 dapagliflozin (Farxiga) 10 mg tablet Take 1 (one) tablet (10 mg total) by mouth daily . 30 tablet 11 ibuprofen (ADVIL,MOTRIN) 800 MG tablet Take 600 mg by mouth 3 (three) times a day as needed . sacubitriL-valsartan (Entresto) 24-26 mg per tablet Take 1 (one) tablet by mouth 2 (two) times a day . 180 tablet 3 No current facility-administered medications for this visit. Allergies Allergen Reactions Penicillins Other reaction(s): Unknown Review of Systems Constitutional: Negative for malaise/fatigue and weight gain. HENT: Negative for congestion. Cardiovascular: Positive for dyspnea on exertion. Negative for chest pain, leg swelling, orthopnea and paroxysmal nocturnal dyspnea. Respiratory: Negative for cough. Musculoskeletal: Positive for back pain. Gastrointestinal: Negative for bloating, constipation and diarrhea. Genitourinary: Negative for dysuria. Psychiatric/Behavioral: Positive for depression. Objective: Vitals: Vitals: 08/31/21 1026 BP: 118/76 Pulse: 70 Weight: 98.9 kg (218 lb) Height: 5' 10 Lab Review: Recent labs reviewed with patient Assessment & Plan: Plan IMPRESSION: HFrEF Etiology: non-ischemic Most recent known EF: 45 Non-ischemic etiology: N/A Stage: B NYHA Class: II No evidence of congestion Essential hypertension: Currently under good control. CAD - 07/21/2021 Spect Abnormal pharmacologic stress nuclear perfusion study suggestive of large septal and apical infarction(s).. Ischemia is not demonstrated 08/23/2021 Cath with nonobstructive CAD Sleep Apnea-will revisit in future PLAN: Patient placed on guideline directed therapy including: SONY/ARB/ARNI Entresto 24/26 mg BID 07/26/2021 BB: Toprol 50 mg QD Aldosterone antagonist no Diuretic no Potassium No SGLT2i Farxiga 10 mg every day added today Medications: Farxiga 10 mg every day added today Labs to be drawn: recently done Activity goal: walk 30 minutes daily Patient encouraged w/ daily weight and recording. Diet counseling: Patient was counseled on low sodium heart healthy diet. FOLLOW-UP SCHEDULE: Patient is currently scheduled to follow-up with Dr. Acuna Patient will return to see us in November 22 minutes was spent w/ the patient. Over half of this time was spent in counseling regarding medication therapy, treatments, activity, diet planning including teaching and review of reports with patient. There is collaboration between the P[employer] ENAMEL SPRAYER and the consulting/collaborating physician regarding this patient's plan of care. Dr. Vijay Acuna MD has been updated regarding the patient's status via EMR. Thank you for allowing us to participate in the care of our patient. Please call if you have any further questions. Signature: MONTSERRAT Hager documented in this [id number] History of Present illness Narrative* MONTSERRAT Sosa - 08/09/2021 11:00 AM EDT [facility] NAME: Verito Brennan DATE OF : 1965 MEDICAL RECORD#: [id number] Telephone Visit Via Phone Call [facility] (11) [facility] [address] [facility] [phone] Telephone Visit [facility] 08/09/2021 MONTSERRAT Sosa Provider Location: M[facility] Patient Location Geropsychologist: None Patient Location: Patient's Home Patient: Verito Brennan Date of : 1965 (56 y.o. female) PCP: Clair Dahl MD I discussed risks, benefits and alternatives of a telephone visit telemedicine consultation with the patient (and any accompanying persons) including the risks that the patient's personal health details and medical records will be discussed over real-time, synchronous, interactive audio technology,the visit will not be recorded without the express consent of both the provider and the patient, and that there are inherent diagnostic limitations compared to [id number] evaluations. We elected toproceed with the telephone visit telemedicine consultation. The following portions of the patient's history were reviewed and updated as appropriate: She has apast medical history of Hypertension. She does not have any pertinent problems on file. She has a past surgical history that includes orthopedic surgery; Cervical Ablation W/ Laser (1997); Polypectomy (1991); Hemorrhoidectomy (1997); and tonsillectomy. Her family history includes Atrial fibrillation in her brother, father, and maternal aunt; Diabetesin her brother, father, and mother; Heart disease in her brother; Multiple myeloma in her mother. She reports that she has been smoking cigarettes. She has never used smokeless tobacco. She reportsprevious alcohol use. She reports that she does not use drugs.. I have spent 20 minutes with the patient reviewing the HPI and Plan of Care. PROCESSOR SOLID PROPELLANT: Vijay Acuna MD TODAY'S DATE: 08/09/2021 Subjective Verito Brennan is a 56 y.o. female with a h/o HFrEF, back pain, arthritis who presents today forher follow up visit to the heart failure clinic. Ms. Brennan presented after an OV with Dr. Acuna. At that visit, she was to get preop clearance forhemilaminectomy, foraminotomy, and discectomy. An echo revealed EF 35%, which was new. She had an abnormal pharmacologic stress nuclear perfusion study suggestive of large septal and apical infarction(s). Ischemia is not demonstrated. We discussed symptoms to monitor and report. She denied congestive symptoms. Her weight has been stable, BPs 122/63-155/88. She denied orthopnea, PND or exercise intolerance. At her first visit, we discussed guideline directed medical therapy for HFrEF. She is on an adequate beta blockade, SONY. She is not on an aldosterone receptor antagonist. or SGLT2i. We discussed the importance of increasing these to their highest tolerated doses to achieve maximal benefit. We discussed Entresto and how it could benefit her. BPs are adequate for transitioning to Entresto. She willstop lisinopril, last dose taken 07/24/2021 and start Entresto 24/26 mg BID 07/26/2021, taking at breakfast and bedtime. She will continue to take Toprol at bedtime. She met with Dr. Acuna. Toprol was increased to 50 mg every day. She is scheduled for a cardiac cath 08/23/2021. Today, she notes improved exercise tolerance and less fatigue since on Entresto . Her weight is down 4 lbs. She denied congestive symptoms. BPs at home 120-130s systolic. We discussed her upcoming cath. Support was given. Anticipate increasing Entresto or metoprolol in future visits. Ms. Brennan lives alone. She is able to maintain her household, including using a push mower without much difficulty. 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 She has been on disability since then and wants to have back surgery to return to work. We discussed a low sodium meal plan. She met with Analilia Quiroz CHFN to discuss lower sodium choices. We discussed a low level activity plan. We discussed cardiac rehab. She was not interested in Cardiac Rehab. She is limited with activity due to back pain. She has been walking 30 minutes daily on her treadmill at 3 MPH. She also rides her bike around the neighborhood 30 minutes. She reports that she has quit smoking. She was applauded for her efforts. We discussed how sleep apnea contributes to heart failure. 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 She was not interested in a sleep study at present. We will revisit this in the future. Congestive Heart Failure Intake General Data In CHF program?: Yes Heart Failure etiology: Non-ischemic Heart Failure type: Systolic Received HF educational booklet: Pos 6 minute walk in past year: Neg Last Ejection Fraction: 35 Date: 07/05/21 Modality: Echocardiogram Systolic HF medication titration data On BetaBlocker?: Yes Dosing: Still being titrated On SONY/ARB/ARNI: ARNI Dosing: Still being titrated On Aldosterone Antagonist?: No On Ivabradine?: No On Digoxin?: No On Hydralazine?: No On Nitrate?: No CARDIAC HISTORY INCLUDES: 07/05/2021 Echo 1. Mildly dilated LV chamber size. There is mild concentric left ventricular hypertrophy. There is moderately reduced LV systolic function with the entire inferoseptal, entire anteroseptal and apical septal gates being akinetic. The remaining gates are hypokinetic. LVEF by 3D echo of 35%. 2. The left ventricular diastolic function is grade I diastolic dysfunction. 3. Right ventricular chamber dimension is normal. Right ventricular systolic function is normal. 4. There is no hemodynamically significant valve disease. 5. There is borderline pulmonary hypertension, estimated right ventricle systolic pressure is 38 mmHg. 07/21/2021 Spect 1. Abnormal pharmacologic stress nuclear perfusion study suggestive of large septal and apical infarction(s).. Ischemia is not demonstrated. There is severe global LV dysfunction as listed below.. 2. Nondiagnostic pharmacologic ECG portion of stress nuclear perfusion study. Resting ST segment changes. No chest discomfort. No significant arrhythmias. Normal hemodynamic response to Lexiscan. 3. There is global LV dysfunction with segmental variation as detailed below. 4. Resting ejection fraction 26%. Post stress ejection fraction 31% severe left ventricular enlargement. 5. There are large fixed defects of the septum and apical segments. Otherwise homogeneous perfusion. There is GI uptake artifact adjacent to the inferior and apical segments. 6. Overall high-risk study based on SCAI criteria (>3% predicted annual cardiac mortality). Histories: Past Medical History: Diagnosis Date Hypertension Past Surgical History: Procedure Laterality Date CERVICAL ABLATION W/ LASER 1997 HEMORRHOIDECTOMY 1997 ORTHOPEDIC SURGERY 1 on Left, 2 on Right - last in 2001 POLYPECTOMY 1991 Throat polypectomy TONSILLECTOMY Current Medications: Current Outpatient Medications Medication Sig Dispense Refill ALPRAZolam (XANAX) 0.25 MG tablet Take 0.25 mg by mouth 3 (three) times a day as needed . atorvastatin (LIPITOR) 20 MG tablet Take 1 (one) tablet (20 mg total) by mouth daily . 30 tablet 11 diphenhydrAMINE (BENADRYL) 25 mg tablet Take 25 mg by mouth nightly as needed for sleep . ibuprofen (ADVIL,MOTRIN) 800 MG tablet Take 600 mg by mouth 3 (three) times a day as needed . loratadine 10 mg Tab 10 mg, pseudoePHEDrine 120 mg TbER 120 mg Take by mouth daily . metoprolol succinate (TOPROL-XL) 50 MG 24 hr tablet Take 1 (one) tablet (50 mg total) by mouth daily . 30 tablet 5 sacubitriL-valsartan (Entresto) 24-26 mg per tablet Take 1 (one) tablet by mouth 2 (two) times a day . 28 tablet 0 No current facility-administered medications for this visit. Allergies Allergen Reactions Penicillins Other reaction(s): Unknown Review of Systems Constitutional: Negative for malaise/fatigue and weight gain. HENT: Negative for congestion. Cardiovascular: Positive for dyspnea on exertion. Negative for chest pain, leg swelling, orthopnea and paroxysmal nocturnal dyspnea. Respiratory: Negative for cough. Musculoskeletal: Positive for back pain. Gastrointestinal: Negative for bloating, constipation and diarrhea. Genitourinary: Negative for dysuria. Psychiatric/Behavioral: Positive for depression. Objective: Vitals: Vitals: 08/09/21 1114 BP: 124/75 Pulse: 65 Weight: 99.3 kg (219 lb) Height: 5' 10 Lab Review: Recent labs reviewed with patient Assessment & Plan: Plan IMPRESSION: HFrEF Etiology: non-ischemic Most recent known EF: 35 Non-ischemic etiology: N/A Stage: B NYHA Class: II No evidence of congestion Essential hypertension: Could be under better control CAD - 07/21/2021 Spect Abnormal pharmacologic stress nuclear perfusion study suggestive of large septal and apical infarction(s).. Ischemia is not demonstrated Sleep Apnea-will revisit in future PLAN: Patient placed on guideline directed therapy including: SONY/ARB/ARNI Entresto 24/26 mg BID 07/26/2021 BB: Toprol 50 mg QD Aldosterone antagonist no Diuretic no Potassium No SGLT2i No Medications: no changes Labs to be drawn: recently done Activity goal: walk 30 minutes daily Patient encouraged w/ daily weight and recording. Diet counseling: Patient was counseled on low sodium heart healthy diet. FOLLOW-UP SCHEDULE: Patient is currently scheduled to follow-up with Dr. Acuna Patient will return to see us in 3 weeks 20 minutes was spent w/ the patient. Over half of this time was spent in counseling regarding medication therapy, treatments, activity, diet planning including teaching and review of reports with patient. There is collaboration between the [employer]ER and the consulting/collaborating physician regarding this patient's plan of care. Dr. Vijay Acuna MD has been updated regarding the patient's status via EMR. Thank you for allowing us to participate in the care of our patient. Please call if you have any further questions. Signature: MONTSERRAT Hager documented in this [id number] History of Present illness Narrative* Meir Huffman RN - 08/08/2021 9:39 AM EDT Called patient with [facility] date/time/instructions. Patient verbalized understanding. Labs up to date, no hydration needed, H&P completed. Consent on arrival Heart Catheterization and Pre-Cath Covid testing Date and Time of your procedure is on Monday, August 23, 2021 at 10:00 AM by shear grinder operator, Dr. Verduzco. Please arrive at [facility] and check in at the Outpatient Registration by 8:00 AM. Please park in the garage next to the medical office building. If needed, laundry supervisor parking is available at the front entrance of the hospital. DO NOT eat or drink anything after midnight on Sunday August 22, 2021 The morning of your procedure you should take your medications with as little water as possible. Bring a list of all medications you take along with dosage and frequency that you take the medications. ___ DO NOT take Coumadin for 3 days prior to the procedure. If you take Xarelto, Pradaxa, or Eliquis, do not take for 2 days prior to the procedure. ___ DO NOT take Metformin, or any medication containing Metformin, Glucophage, Glucovance, or Avandamet the morning of the catheterization and the following 2 days. Please get blood work done on the second day and call our office before restarting the medication at [phone]. ___ If you are an insulin-dependent diabetic and your arrival time is 6:30 AM, do not take your insulin. If your arrival time is after 6:30AM, you should take only one-half your usual dose of insulinthe morning of your procedure. ___ If you were prescribed Prednisone before your procedure you are to take a total of 60mg (this is often 3 tablets) the night before the procedure and again the morning of the procedure. ___ Be sure to get any required blood work done as soon as possible: You will be given a sedative for the procedure and therefore you will not be able to drive home. Please have a ride arranged. If an intervention is performed you will stay the night in the hospital and likely be discharged the next day. Please be advised that occasionally you may experience significant delays for up to several hours due to emergencies and/or unavoidable circumstances. If you have any questions or concerns please contact DENEEN Torrez at [phone]. documented in this [id number] History of Present illness Narrative* Vijay Acuna MD - 08/03/2021 2:20 PM EDT Cardiology Clinic Visit Heart & Vascular [facility] 08/03/2021 Vijay Acuna MD [address] [place] [id number] Patient: Verito Brennan Date of : 1965 (56 y.o.) Referring Provider: No ref. provider found PCP: Clair Dahl MD Assessment & Plan Verito Brennan is a 56 y.o. woman with history of arthritis and back pain who presents to clinicfor preoperative risk stratification for hemilaminectomy, foraminotomy, and discectomy. Chronic systolic HF - euvolemic on exam, likely ischemic in nature given stress test. We discussed an invasive ischemic evaluation. We discussed the risks and benefits to this. We dicussed that this will be needed prior to her surgery and may delay her surgery especially if an intervention is needed. I spoke with Dr. Dhaliwal, patient will need to be off DAPT 3 days prior to her procedure and 2-3 days post. Will proceed with LHC, will discuss the case with interventional. Increase metoprolol to 50mg daily. Continue entresto 24-26mg BID. Labs ordered Pre-op risk stratification pending - C and medical management of new diagnosed tolic HF. Possible CAD - start atorvastatin 20mg daily, lipid panel ordered RTC in 4 weeks, HF clinic visit next week for med titration Vijay Acuna MD [facility] Non-Invasive Cardiology [facility] Heart and Vascular Chief Complaint: HF Subjective Verito Brennan is a 56 y.o. woman with history of arthritis and back pain who orginally presented to the clinic for preoperative risk stratification for hemilaminectomy, foraminotomy, and discectomy and was found to have a LBBB. She underwent an echocardiogram which revealed systolif HF with andEF of 35%. A nuclear stress test was ordered since the last visit. She reports that she has been feeling ok. She denies chest pain and shortness of breath. Denies LE swelling, PND and orthopnea. Denies palpitations, LH and dizziness. Denies syncope. Was seen by HF clinic and started on entresto. Review of Systems: Constitution: Negative. HENT: Negative. Cardiovascular: As above. Respiratory: As above. Endocrine: Negative. Skin: Negative. Musculoskeletal: Negative. Gastrointestinal: Negative. Genitourinary: Negative. Neurological: Negative. Psychiatric/Behavioral: Negative. Past Medical History: Diagnosis Date Hypertension Past Surgical History: Procedure Laterality Date CERVICAL ABLATION W/ LASER 1997 HEMORRHOIDECTOMY 1997 ORTHOPEDIC SURGERY 1 on Left, 2 on Right - last in 2001 POLYPECTOMY 1991 Throat polypectomy TONSILLECTOMY Family History Problem Relation Age of Onset Diabetes Mother Multiple myeloma Mother Diabetes Father Atrial fibrillation Father Heart disease Brother Atrial fibrillation Brother Diabetes Brother Atrial fibrillation Maternal Aunt Social History Tobacco Use Smoking Status Every Day Years: 20.00 Pack years: 0.00 Types: Cigarettes Smokeless Tobacco Never Tobacco Comments smokes 1-2 cigarettes daily Allergies: Penicillins HOME Medications: Current Outpatient Medications on File Prior to Visit Medication Sig diphenhydrAMINE (BENADRYL) 25 mg tablet Take 25 mg by mouth nightly as needed for sleep . ibuprofen (ADVIL,MOTRIN) 800 MG tablet Take 600 mg by mouth 3 (three) times a day as needed . loratadine 10 mg Tab 10 mg, pseudoePHEDrine 120 mg TbER 120 mg Take by mouth daily . metoprolol succinate (TOPROL-XL) 25 MG 24 hr tablet Take 1 (one) tablet (25 mg total) by mouth daily . sacubitriL-valsartan (Entresto) 24-26 mg per tablet Take 1 (one) tablet by mouth 2 (two) times a day . No current facility-administered medications on file prior to visit. Physical Examination: LMP (LMP Unknown) Constitutional: Appears well-developed and well-nourished. No distress. HENT: Head: Normocephalic and atraumatic. Eyes: Conjunctivae and EOM are normal. No scleral icterus. Neck: Normal range of motion. Cardiovascular: Normal rate and regular rhythm. Exam reveals no gallop and no friction rub. No murmur heard. No JVP elevation. No LE edema. Pulmonary/Chest: Effort normal and breath sounds normal. No respiratory distress. No wheezes. No rales. Abdominal: Soft. Bowel sounds are normal. There is no abdominal tenderness. Musculoskeletal: Normal range of motion. Neurological: AOx3, moving all ext. Skin: Skin is warm and dry. No rash noted. Psychiatric: Normal mood and affect. Cardiovascular Studies: 05/24/21 ECG Normal sinus rhythm Left bundle branch block Abnormal ECG 07/06/21 TTE Summary 1. Mildly dilated LV chamber size. There is mild concentric left ventricular hypertrophy. There is moderately reduced LV systolic function with the entire inferoseptal, entire anteroseptal and apical septal gates being akinetic. The remaining gates are hypokinetic. LVEF by 3D echo of 35%. 2. The left ventricular diastolic function is grade I diastolic dysfunction. 3. Right ventricular chamber dimension is normal. Right ventricular systolic function is normal. 4. There is no hemodynamically significant valve disease. 5. There is borderline pulmonary hypertension, estimated right ventricle systolic pressure is 38 mmHg. [facility] 07/22/21 Summary 1. Abnormal pharmacologic stress nuclear perfusion study suggestive of large septal and apical infarction(s).. Ischemia is not demonstrated. There is severe global LV dysfunction as listed below.. 2. Nondiagnostic pharmacologic ECG portion of stress nuclear perfusion study. Resting ST segment changes. No chest discomfort. No significant arrhythmias. Normal hemodynamic response to Lexiscan. 3. There is global LV dysfunction with segmental variation as detailed below. 4. Resting ejection fraction 26%. Post stress ejection fraction 31% severe left ventricular enlargement. 5. There are large fixed defects of the septum and apical segments. Otherwise homogeneous perfusion. There is GI uptake artifact adjacent to the inferior and apical segments. 6. Overall high-risk study based on SCAI criteria (>3% predicted annual cardiac mortality). Labs: Lab Results Component Value Date GLUCOSE 100 (H) 07/04/2021 CALCIUM 9.8 07/04/2021 NA 138 07/04/2021 K 5.1 07/04/2021 CL 106 07/04/2021 BUN 10 07/04/2021 CREATININE 0.80 07/04/2021 Lab Results Component Value Date WBC 7.04 07/04/2021 HGB 14.0 07/04/2021 HCT 42.3 07/04/2021 MCV 92.8 07/04/2021 PLT 224 07/04/2021 RBC 4.56 07/04/2021 No results found for: CHOL, LDLCALC, LDLDIRECT, TRIG, HDL documented in this [id number] Instructions* Patient Instructions* Meir Huffman RN - 08/03/2021 2:11 PM EDT How to contact your Care Team: Provider: Vijay Acuna MD Nurse: Meir Huffman RN In case of an emergency please call 911. REFILLS: When in need for refills please call your care team or the office at [phone]. Please include medication name, pharmacy name, and specify 30-day or 90-day supply. Please check with your pharmacy within 24 hours of request for your refill. You must follow up as directed to continue current refills. Thank you Heart Catheterization and Pre-Cath Covid testing Date and Time of your procedure is on at by shear grinder operator, . Please arrive at [facility] and check in at the Outpatient Registration by . Please park in the garage next to the medical office building. If needed, laundry supervisor parking is available at the front entrance of the hospital. DO NOT eat or drink anything after midnight on . The morning of your procedure you should take your medications with as little water as possible. Bring a list of all medications you take along with dosage and frequency that you take the medications. ___ DO NOT take Coumadin for 3 days prior to the procedure. If you take Xarelto, Pradaxa, or Eliquis, do not take for 2 days prior to the procedure. ___ DO NOT take Metformin, or any medication containing Metformin, Glucophage, Glucovance, or Avandamet the morning of the catheterization and the following 2 days. Please get blood work done on the second day and call our office before restarting the medication at [phone]. ___ If you are an insulin-dependent diabetic and your arrival time is 6:30 AM, do not take your insulin. If your arrival time is after 6:30AM, you should take only one-half your usual dose of insulinthe morning of your procedure. ___ If you were prescribed Prednisone before your procedure you are to take a total of 60mg (this is often 3 tablets) the night before the procedure and again the morning of the procedure. _X__ Be sure to get any required blood work done as soon as possible: You will be given a sedative for the procedure and therefore you will not be able to drive home. Please have a ride arranged. If an intervention is performed you will stay the night in the hospital and likely be discharged the next day. Please be advised that occasionally you may experience significant delays for up to several hours due to emergencies and/or unavoidable circumstances. If you have any questions or concerns please contact DENEEN Torrez at [phone]. documented in this [id number] History of Present illness Narrative* Analilia Quiroz RN - 07/25/2021 9:36 AM EDT Verito presents at this time to the HF clinic for her initial visit. She is accompanied today byher brother, but he sits in the lobby for the duration of the visit. RN led education provided to guide therapy and encourage compliance. We discussed the following topics in detail. - Value of daily weight monitoring, recording and reporting - Fluid intake and thirst recommendations - Sodium recommendations, label reading, consideration of serving size - Diet resources, including [email or web address] - OTC medications to avoid - Symptom recognition - Activity recommendations, using talk test as a guide at home and safety considered. Verito was issued the Living With Heart Failure guide as well as weight and BP logs to take home. Entresto samples were issued and she was educated on the use of this drug. * MONTSERRAT Sosa - 07/25/2021 8:00 AM EDT [facility] NAME: Verito Brennan DATE OF : 1965 MEDICAL RECORD#: [id number] PROCESSOR SOLID PROPELLANT: Vijay Acuna MD TODAY'S DATE: 07/25/2021 Subjective Verito Brennan is a 56 y.o. female with a h/o HFrEF, back pain, arthritis who presents today forher first visit to the heart failure clinic. The patient is accompanied today by her brother, who sat in the waiting room. She is not using a wheelchair. Ms. Brennan presents after an OV with Dr. Acuna. At that visit, she was to get preop clearance for hemilaminectomy, foraminotomy, and discectomy. An echo revealed EF 35%, which was new. She had an abnormal pharmacologic stress nuclear perfusion study suggestive of large septal and apical infarction(s).. Ischemia is not demonstrated. We discussed symptoms to monitor and report. She denied congestive symptoms. Her weight has been stable, BPs 122/63-155/88. She denied orthopnea, PND or exercise intolerance. We discussed guideline directed medical therapy for HFrEF. She is on an adequate beta blockade, SONY. She is not on an aldosterone receptor antagonist. or SGLT2i. We discussed the importance of increasing these to their highest tolerated doses to achieve maximal benefit. We discussed Entresto and how it could benefit her. BPs are adequate for transitioning to Entresto. She will stop lisinopril, last dose taken 07/24/2021 and start Entresto 24/26 mg BID 07/26/2021, taking at breakfast and bedtime. She will continue to take Toprol at bedtime. Ms. Brennan lives alone. She is able to maintain her household, including using a push mower without much difficulty. 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 She has been on disability since then and wants to have back surgery to return to work. We discussed a low sodium meal plan. She met with Analilia Quiroz [facility] to discuss lower sodium choices. We discussed a low level activity plan. We discussed cardiac rehab. She was not interested in Cardiac Rehab. She is limited with activity due to back pain. She has been walking 30 minutes daily on her treadmill at 3 MPH. She also rides her bike around the neighborhood. She reports that she has quit smoking. She was applauded for her efforts. We discussed how sleep apnea contributes to heart failure. 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 She was not interested in a sleep study at present. We will revisit this in the future. Congestive Heart Failure Intake General Data In CHF program?: Yes Heart Failure etiology: Non-ischemic Heart Failure type: Systolic Received HF educational booklet: Pos 6 minute walk in past year: Neg NYHA functional class: II Last Ejection Fraction: 35 Date: 07/05/21 Modality: Echocardiogram Systolic HF medication titration data On BetaBlocker?: Yes Dosing: Still being titrated On SONY/ARB/ARNI: ARNI Dosing: Still being titrated On Aldosterone Antagonist?: No On Ivabradine?: No On Digoxin?: No On Hydralazine?: No On Nitrate?: No CARDIAC HISTORY INCLUDES: 07/05/2021 Echo 1. Mildly dilated LV chamber size. There is mild concentric left ventricular hypertrophy. There is moderately reduced LV systolic function with the entire inferoseptal, entire anteroseptal and apical septal gates being akinetic. The remaining gates are hypokinetic. LVEF by 3D echo of 35%. 2. The left ventricular diastolic function is grade I diastolic dysfunction. 3. Right ventricular chamber dimension is normal. Right ventricular systolic function is normal. 4. There is no hemodynamically significant valve disease. 5. There is borderline pulmonary hypertension, estimated right ventricle systolic pressure is 38 mmHg. 07/21/2021 Spect 1. Abnormal pharmacologic stress nuclear perfusion study suggestive of large septal and apical infarction(s).. Ischemia is not demonstrated. There is severe global LV dysfunction as listed below.. 2. Nondiagnostic pharmacologic ECG portion of stress nuclear perfusion study. Resting ST segment changes. No chest discomfort. No significant arrhythmias. Normal hemodynamic response to Lexiscan. 3. There is global LV dysfunction with segmental variation as detailed below. 4. Resting ejection fraction 26%. Post stress ejection fraction 31% severe left ventricular enlargement. 5. There are large fixed defects of the septum and apical segments. Otherwise homogeneous perfusion. There is GI uptake artifact adjacent to the inferior and apical segments. 6. Overall high-risk study based on SCAI criteria (>3% predicted annual cardiac mortality). Histories: Past Medical History: Diagnosis Date Hypertension Past Surgical History: Procedure Laterality Date CERVICAL ABLATION W/ LASER 1997 HEMORRHOIDECTOMY 1997 ORTHOPEDIC SURGERY 1 on Left, 2 on Right - last in 2001 POLYPECTOMY 1991 Throat polypectomy TONSILLECTOMY Current Medications: Current Outpatient Medications Medication Sig Dispense Refill diphenhydrAMINE (BENADRYL) 25 mg tablet Take 25 mg by mouth nightly as needed for sleep . ibuprofen (ADVIL,MOTRIN) 800 MG tablet Take 600 mg by mouth 3 (three) times a day as needed . loratadine 10 mg Tab 10 mg, pseudoePHEDrine 120 mg TbER 120 mg Take by mouth daily . metoprolol succinate (TOPROL-XL) 25 MG 24 hr tablet Take 1 (one) tablet (25 mg total) by mouth daily . 30 tablet 5 sacubitriL-valsartan (Entresto) 24-26 mg per tablet Take 1 (one) tablet by mouth 2 (two) times a day . 28 tablet 0 No current facility-administered medications for this visit. Allergies Allergen Reactions Penicillins Other reaction(s): Unknown Review of Systems Constitutional: Negative for malaise/fatigue and weight gain. HENT: Negative for congestion. Cardiovascular: Positive for chest pain (with stress) and dyspnea on exertion. Negative for leg swelling, orthopnea and paroxysmal nocturnal dyspnea. Respiratory: Positive for cough. Musculoskeletal: Positive for back pain. Gastrointestinal: Negative for bloating, constipation and diarrhea. Genitourinary: Negative for dysuria. Psychiatric/Behavioral: Positive for depression. Objective: Physical Exam Constitutional: Appearance: Normal appearance. Eyes: Conjunctiva/sclera: Conjunctivae normal. Cardiovascular: Rate and Rhythm: Normal rate and regular rhythm. Pulses: Normal pulses. Heart sounds: Normal heart sounds. Pulmonary: Effort: Pulmonary effort is normal. Breath sounds: Normal breath sounds. Abdominal: General: Bowel sounds are normal. Musculoskeletal: Cervical back: Normal range of motion and neck supple. Right lower leg: No edema. Left lower leg: No edema. Skin: General: Skin is warm and dry. Neurological: Mental Status: She is alert and oriented to person, place, and time. Psychiatric: Mood and Affect: Mood normal. Behavior: Behavior normal. Thought Content: Thought content normal. Judgment: Judgment normal. Vitals: Vitals: 07/25/21 0752 BP: 138/72 BP Location: Left arm Patient Position: Sitting BP Cuff Size: Adult Pulse: 83 SpO2: 98% Weight: 101.6 kg (223 lb 14.4 oz) Height: 5' 10 Lab Review: Recent labs reviewed with patient Assessment & Plan: Plan IMPRESSION: HFrEF Etiology: non-ischemic Most recent known EF: 35 Non-ischemic etiology: N/A Stage: B NYHA Class: II No evidence of congestion Essential hypertension: Could be under better control CAD - 07/21/2021 Spect Abnormal pharmacologic stress nuclear perfusion study suggestive of large septal and apical infarction(s).. Ischemia is not demonstrated Sleep Apnea-will revisit in future PLAN: Patient placed on guideline directed therapy including: SONY/ARB/ARNI Lisinopril 5 mg every day, stopped. To start Entresto 24/26 mg BID 07/26/2021 BB: Toprol 25 mg QD Aldosterone antagonist no Diuretic no Potassium No SGLT2i No Medications: Lisinopril 5 mg every day, stopped. To start Entresto 24/26 mg BID 07/26/2021 Labs to be drawn: recently done Activity goal: walk 30 minutes daily Patient encouraged w/ daily weight and recording. Diet counseling: Patient was counseled on low sodium heart healthy diet. FOLLOW-UP SCHEDULE: Patient is currently scheduled to follow-up with Dr. Acuna Patient will return to see us in 2 weeks 60 minutes was spent w/ the patient. Over half of this time was spent in counseling regarding medication therapy, treatments, activity, diet planning including teaching and review of reports with patient. There is collaboration between the PORCEL[employer] ENAMEL SPRAYER and the consulting/collaborating physician regarding this patient's plan of care. Dr. Vijay Acuna MD has been updated regarding the patient's status via EMR. Thank you for allowing us to participate in the care of our patient. Please call if you have any further questions. Signature: MONTSERRAT Hager documented in this [id number] Instructions* Patient Instructions* MONTSERRAT Sosa - 07/25/2021 8:25 AM EDT Please stop taking lisinopril. Please start Entresto 24/26 mg tomorrow at breakfast and bedtime. Please bring in your wrist cuff at your next visit. documented in this [id number] History of Present illness Narrative* Vijay Acuna MD - 07/05/2021 10:28 AM EDT Cardiology Clinic Visit Heart & Vascular [facility] 07/05/2021 Vijay Acuna MD [address] [place] [address] [facility] [facility] [id number] Patient: Verito Brennan Date of : 1965 (56 y.o.) Referring Provider: Daylin Ernandez, * PCP: Clair Dahl MD Assessment & Plan Verito Brennan is a 56 y.o. woman with history of arthritis and back pain who presents to clinicfor preoperative risk stratification for hemilaminectomy, foraminotomy, and discectomy. Preoperative risk stratification-according to the Guillermo risk calculator the patient is at low risk for major perioperative cardiovascular events, less than 1%. Additionally she is able to achieve greater than 4 metabolic equivalents without chest pain or shortness of breath. She however does have aleft bundle branch block on ECG today. She denies any prior history of this. She has not had any other prior EKGs nor has she had an echocardiogram. She denies having heart failure symptoms. She denies having chest pain. She has no history of WI. We discussed that given her left bundle branch blockshe should have further evaluation with an echocardiogram which she was agreeable to. She did undergo an echocardiogram after the clinic visit which revealed systolic heart failure which is a new diagnosis for her. We did discuss the possible etiologies of systolic heart failure. We discussed a nuclear stress test which she was agreeable to. We have also placed her on goal-directed medical therapy. We discussed that her surgery should be delayed until she is on stable doses of goal-directed medical therapy and she has had a nuclear stress test evaluation. She was agreeable to this. I did speak with Dr. Dhaliwal as well regarding this. She will be seen in the heart failure clinic in 2 weeks for medication titration. She will follow-up with me in 4 weeks. Vijay Acuna MD [facility] Non-Invasive Cardiology [facility] Heart [facility] Vascular Chief Complaint: Pre-op Exam (Minimal invasive back surgery on a disc) and Abnormal ECG (Per Daylin Ernandez CNP) Subjective Verito Brennan is a 56 y.o. woman with history of arthritis and back pain who presents to clinicfor preoperative risk stratification for hemilaminectomy, foraminotomy, and discectomy. She denies any prior cardiac history including HF, WI, PCI, valve issues and arrhythmias. She reports that prior to injuring her back she was very active however she is still tries to continue to be active is much as possible. She reports that prior to February she was walking on the treadmill at 3.6 to 4 miles an hour for about 30 minutes at a time. She reports that she is continue to try to walk on the treadmill for example yesterday she was able to walk at 2.8 to 3.6 miles an hour however she had to hold onto the railing to be able to do so. She denies having chest pain or shortness of breath with activity or with walking. Reports that she is able to walk up 2 flights of stairs without chest pain shortness of breath. She denies lower extremity swelling, PND and orthopnea. She denies palpitations. She denies lightheadedness and dizziness. She denies any episodes syncope. She reports that her father does have atrial fibrillation and an aunt with a left bundle branch block as well however denies any other prior cardiac history. Review of Systems: Constitution: Negative. HENT: Negative. Cardiovascular: As above. Respiratory: As above. Endocrine: Negative. Skin: Negative. Musculoskeletal: Negative. Gastrointestinal: Negative. Genitourinary: Negative. Neurological: Negative. Psychiatric/Behavioral: Negative. History reviewed. No pertinent past medical history. Past Surgical History: Procedure Laterality Date CERVICAL ABLATION W/ LASER 1997 HEMORRHOIDECTOMY 1997 ORTHOPEDIC SURGERY 1 on Left, 2 on Right - last in 2001 POLYPECTOMY 1991 Throat polypectomy TONSILLECTOMY Family History Problem Relation Age of Onset Diabetes Mother Multiple myeloma Mother Diabetes Father Atrial fibrillation Father Diabetes Brother Atrial fibrillation Maternal Aunt Social History Tobacco Use Smoking Status Current Every Day Smoker Years: 20.00 Smokeless Tobacco Never Used Tobacco Comment smokes 1-2 cigarettes daily Allergies: Penicillins HOME Medications: Current Outpatient Medications on File Prior to Visit Medication Sig diphenhydrAMINE (BENADRYL) 25 mg tablet Take 25 mg by mouth nightly as needed for sleep . ibuprofen (ADVIL,MOTRIN) 800 MG tablet Take 600 mg by mouth 3 (three) times a day as needed . loratadine 10 mg Tab 10 mg, pseudoePHEDrine 120 mg TbER 120 mg Take by mouth daily . No current facility-administered medications on file prior to visit. Physical Examination: BP 133/78 (BP Location: Left arm) Pulse 90 Ht 5' 10 Wt 99.8 kg (220 lb) LMP (LMP Unknown) SpO2 96% BMI 31.57 kg/m Constitutional: Appears well-developed and well-nourished. No distress. HENT: Head: Normocephalic and atraumatic. Eyes: Conjunctivae and EOM are normal. No scleral icterus. Neck: Normal range of motion. Cardiovascular: Normal rate and regular rhythm. Exam reveals no gallop and no friction rub. No murmur heard. No JVP elevation. No LE edema. Pulmonary/Chest: Effort normal and breath sounds normal. No respiratory distress. No wheezes. No rales. Abdominal: Soft. Bowel sounds are normal. There is no abdominal tenderness. Musculoskeletal: Normal range of motion. Neurological: AOx3, moving all ext. Skin: Skin is warm and dry. No rash noted. Psychiatric: Normal mood and affect. Cardiovascular Studies: 05/24/21 ECG Normal sinus rhythm Left bundle branch block Abnormal ECG Labs: Lab Results Component Value Date GLUCOSE 100 (H) 07/04/2021 CALCIUM 9.8 07/04/2021 NA 138 07/04/2021 K 5.1 07/04/2021 CL 106 07/04/2021 BUN 10 07/04/2021 CREATININE 0.80 07/04/2021 Lab Results Component Value Date WBC 7.04 07/04/2021 HGB 14.0 07/04/2021 HCT 42.3 07/04/2021 MCV 92.8 07/04/2021 PLT 224 07/04/2021 RBC 4.56 07/04/2021 No results found for: CHOL, LDLCALC, LDLDIRECT, TRIG, HDL documented in this [id number] Instructions* Patient Instructions* Meir Huffman RN - 07/05/2021 9:50 AM EDT How to contact your Care Team: Provider: Vijay Acuna MD Nurse: Meir Huffman RN In case of an emergency please call 911. REFILLS: When in need for refills please call your care team or the office at [phone]. Please include medication name, pharmacy name, and specify 30-day or 90-day supply. Please check with your pharmacy within 24 hours of request for your refill. You must follow up as directed to continue current refills. Thank you documented in this [id number] History of Present illness Narrative* Delmy Goldman RN - 07/04/2021 1:20 PM EDT Subjective Patient ID: Verito Brennan is a 56 y.o. female. Neurosurgery Pre-Op Education Patient Specific Procedure: Right L2-L3 Minimally Invasive Hemilaminotomy, Foraminotomy, and Discectomy Procedure Information Sheet and Spine Book: Provided patient Lumbar Discectomy, Laminectomy, and/or Foraminotomy handout. Reviewed procedure indetail, risks and benefits, immediate post-operative expectations, in hospital and home wound care,post-op activity restrictions and recommendations, and pain medications. The patient was advised that he/she may not receive post-op pain medications more than 30 days after their surgery. Medication Review: Medication list reviewed with patient. He/she was provided start or stop dates regarding the following medications: ? Stop taking Ibuprofen three days prior to sugery. Covid Testing: Does not require a Covid test. My Chart Information: The patient reports that he/she currently has an active [employer] account that they currently do not use. I recommended that the patient contact the [employer] Assistance number to regain access. I then, advised them on appropriate use in the claudia-operative period for communication to neurosurgery team for all non- urgent needs. Smoking Cessation Review: This patient admits to current use of tobacco products. I educated the patient that smoking decreases healing rates and if applicable, can decrease fusion rate. I referred to the tobacco use section of the Spine Guide, which includes additional resources and information regarding smoking, cessation, and it's effects on their upcoming surgery. I offered a smoking cessation referral to the patient,who declines. Consent: The patient reports that they understand the risks and benefits of the procedure as previously reviewed by their physician and consents to the described procedure. The patient verbalized understanding of the above information and had no further questions. The patient was provided my direct contact information as well as the office phone number and surgery nurse's number. documented in this [id number] History of Present illness Narrative* Edgar Dhaliwal MD - 05/23/2021 2:35 PM EDT Chief Complaint Patient presents with Results MRI Lumbar Back pain and sciatica. VICENTE Doshi is a 56-year-old female who returns to review her MRI of the lumbar spine from [facility] at 03/18/2021. I have independently reviewed the study on a computerized workstation,my interpretation follows. There is a diffuse disc bulge at the L2-L3 segment, in which there is a focal right paramedian disc herniation that is causing foraminal impaction and severe foraminal stenosis. In addition there is annular tear of the L2-3 disc, with some mild cephalad migration of disc fragment. This is associated with severe lateral recess stenosis on the right. There is some degree of facet arthropathy especially at the L4-L5 facet joints which have some degree of hypertrophy and i ncreased T2 signal within the joint line. Plain spine films of 03/07/2021 demonstrate a levoscoliosislumbar spine centered at L1-3, with a slight compensatory dextroscoliosis centered at the 4 5 level. There is no evidence of acute fracture. There is a mild anterolisthesis of L2 on L3 that does not reduce in flexion or extension. Her pain started on February 03, 2021 which was back pain and right hip and thigh pain. She then on February 11, 2021 had a Covid booster shot and immediately thereafterhad a marked exacerbation of the pain. The pain has been unrelenting and at times brings her to tears. Her worst situations are sitting such as driving or standing. She gets some relief by laying down. 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 She did have epidural injections, and these relieved some of the numb sensation over the right lateral thigh but not pain. She denies any change in bowel bladder habits. She does not have any focal weakness that she can identify of the right leg. She did have a disc herniation that she thought she recalled was L2-L3 back in [id number] and she recovered fully from that exacerbation with the assistance of epidural steroid injections. She also states she had a fracture in her spine [id number] years ago. She has used hydrocodone sparingly for treatment of this pain. Past medical history: Significant for cervical ablation 1997. Polypectomy 1991. Allergy to penicillin. Medications were reviewed in the [facility]. Review of Systems Comprehensive view of systems was obtained, pertinent positives and negatives are noted. Positive for tobaccoism. Negative for coronary artery disease pulmonary disease or bleeding disorders. Positive for some intermittent left hand tingling which last perhaps 30 seconds at a time. She is right-handed. Family history is negative for known neurologic disorders. Psychosocial review. The patient lives by herself but has excellent family support from her father and her brothers. Physical Exam Awake alert female who at times is tearful because of the pain syndrome. She has pain with transitioning from sitting to standing. She does walk with a limp. She favors the right side when she ambulates. Light touch is intact bilateral lower extremities. Power at the iliopsoas gluteal quadricep hamstrings hip abductor's of adductor's and dorsi and plantar flexors the feet are 5-5 nuchal. She has some mild sciatica with straight leg raising on the right at 45 degrees, and negative on the left. Deep tendon reflex of the patella on the right is unobtainable on the left is 1+, and Achilles are 1+and symmetric. No ankle clonus. No calf swelling or tenderness. No pedal or pretibial edema. Lungs clear to auscultation. No pronator drift. Light touch is intact in all the fingers of both hands. Speech and language function is normal. Carotid pulses 2+ out of 3 and equal. No carotid bruits. Cardiac exam reveals a regular rate and rhythm. She has full range of motion the head and neck. No winging of the scapula is noted. Deep tendon reflexes of the biceps and triceps are 1+ and symmetric. No Nina sign. No ankle clonus. Mild pain to palpation of the midline lumbar spine at approximately L3 3 to L4 level is noted. There is no rash of the skin of the lumbar spine. Impression Right L2-L3 disc herniation with foraminal impaction. Plan At this point time I discussed with the patient the natural history of discogenic disease of the spine. I have told her that it is possible that she could have a complete resolution of her symptoms over the next 3 to 6 months, but this is probably less likely in her particular case because she is really not had a significant change in symptomatology over the past 6 to 8 weeks. Alternatively surgery does give 70 to 75% chance of immediate substantial relief. Risks of surgery were discussed with the patient including CSF leak infection epidural hematoma, no improvement, subsequent disc herniation and repeat herniation which could require fusion operation, temporary permanent neurologic deficit, surgical site infection, and remote chances of visceral injury or vascular injury which could require blood transfusions or multiple additional surgical procedures, and she wishes to proceed. Informed consent obtained. Edgar Dhaliwal MD documented in this [id number] Evaluation note* Encounter Date Diagnosis Assessment Notes Treatment Notes Treatment Clinical Notes Apr, Sacroiliitis (ICD-10 - M46.1) 56 y/o female here for follow up status post right L2 and L3 transforaminal epidural steroid injection under fluoroscopic guidance. Patient reports 100% relief of lower extremity pain following procedure. She voices continued complaints of low back pain, denying radicular symptoms. Anatomy of spine discussed in detail with patient in regards to patients condition. Patient is a candidate for a bilateral sacroiliac joint injection under fluoroscopic guidance. Risks and benefits of procedure explained to patient; patient verbalizes understanding. Apr, Lumbosacral spondylosis (ICD-10 - M47.817) In the future if the pain persists, we can consider proceeding with a lumbar facet medial branch nerve block followed by a RFA if applicable under fluoroscopic guidance Apr, Lumbar radiculopathy (ICD-10 - M54.16) Patient reports 100% relief of her lower extremity pain following procedure. She denies radicular symptoms today. Apr, Chronic pain (ICD-10 - G89.29) Continue with current treatment plan. Patient is advised to contact her PCP regarding dizziness [facility] Other [id number] Miscellaneous Notes* Addendum Note - Erika Louis PA-C - 03/08/2021 8:27 PM EST Addended by: ERIKA LOUIS on: 03/08/2021 08:27 PM Modules accepted: Orders documented in this [id number] History of Present illness Narrative* Erika Louis PA-C - 03/07/2021 11:30 AM EST [facility] Progress Note Patient Name: Verito Brennan Date of Service: : 1965 Impression: Verito Brennan is a 56 y.o. year old female with scoliosis, right sided low back pain with radiation to the right lower extremity, lumbar degenerative disc disease and lumbar facet arthropathy. Plan: - Recommend XR lumbar spine, completed today - see results below - Recommend MRI lumbar spine as the patient has failed to obtain relief with a daily exercise program as recommended by her past physical therapists - Will plan for follow-up upon completion of the imaging - Nursing notes reviewed Erika Louis, MS, MPAP, WILL [facility] Office: Chief Complaint: Back Pain (Patient has low right back pain that is predominately in the middle of back that travelsto the right hip and the top of the right thigh stopping at the right knee. Sometimes the pain is on the left. Patient has numbness, tingling and spasms. Patient uses a walker and cane to get around ) HPI: Verito Brennan is a 56 y.o. year old female with right sided low back pain and right lower extremity pain, who presents for initial evaluation. History is obtained from the patient and chart review. The patient reports that in 1998 she sustained an L1-2 fracture. She states that she returned to work relatively quickly, and in the summer 2014, she began to experience worsening pain. In November 2014, she collapsed due to excruciating pain, and around that time was identified to have lumbarherniated discs, annular tears, and degenerative disc disease. In March 2015, the patient states that she was finally able to see a provider, and beginning in April 2015, she underwent several rounds of epidural steroid injections. She continued this throughout 2015 in addition to physical therapy, which she continues the prescribed daily home exercises to this day. The patient states that on February 04, she bent over a garbage barrel to clam picker an empty jug when she experienced acute onset excruciating back pain. She states that she had difficulty standing and struggled to ambulate after that episode. She notes no improvement with lying down. She states that she saw her PCP 4-5 days after the onset of the pain. She was prescribed tizanidine and prednisone, and she completed these without relief of her symptoms. On February 11, the patient received her COVID-19 booster, and she states that the spasms and pain intensified. She states that at times, she struggled to get up from the floor. She describes the pain as the longest charley horse ever, stating that the symptoms continued for 14 days. On February 23, the patient presented to the ED. She states that she received medications while in the ED, which provided very temporary relief, but did not provide any long lasting relief. She states that pain wakes her up at night. She notes that the painis localized to the mid to right side of the low back with pain to the right hip and right anteriorthigh that stops at the knee. She has no extension of the pain into the lower leg and groin. She states that she also experiences paresthesias to the left anterior thigh, which is not painful. She notes pain induced weakness with climbing steps. She states that she cannot lie flat in bed without significantly increased pain. She states that she has been sleeping on her couch in a reclined position as lying flat is uncomfortable. She denies any other back injuries. She describes issues with constipation, but denies any other bowel concerns. She states that she does have intermittent issues with vertigo, which is associated with dosing of her pain medications. She states that this is occurring daily. She admits to family history of multiple myeloma in her mother and melanoma with her brother. She denies any personal history of cancers. She denies family and personal history of brain aneurysms. Physical Examination: PACU Vitals 03/07/21 1050 BP: 139/78 Pulse: 97 SpO2: 97% PainSc: 8 PainLoc: Back General: Healthy, well-appearing 56 y.o. female, in NAD HENT: Hearing grossly intact to voice Neuro: Awake, alert, speech fluent Neck: Supple, full lateral rotation; no midline or paraspinal tenderness Chest: Chest rise symmetric, respirations non-labored Cardiac: No pedal edema, no posterior calf tenderness Back: - No midline thoracic spine tenderness; no midline lumbar spine tenderness; no paraspinal thoracic spine tenderness; no paraspinal lumbar spine tenderness - No right SI joint tenderness; no left SI joint tenderness Skin: Warm and dry MSK: - No Ellison's on right; no Ellison's on left - No clonus on right; no clonus on left - Patellar Tendon Reflexes: 1+ on right, 0 on left Muscle Group Right Left Hip Flexion 4, limited by pain 4+ Knee Extension 5 5 Knee Flexion 5 5 Dorsiflexion 5 5 Plantar Flexion 5 5 Sensation intact to light touch to bilateral lower extremities without areas of diminished sensation. Ambulates with the assistance of a cane with slowed gait without stepage or ataxic gait. Romberg negative. Radiologic/Laboratory Studies Reviewed: The following studies have been reviewed on a computerized device and my interpretation is as follows: XR Lumbar Spine Radiologic interpretation is as follows: BONES: Mild left convex curvature of the lumbar spine. Grade 1 retrolisthesis of L2 on 3 without appreciable change in alignment during flexion and extension. Mild-moderate degenerative facet arthropathy L4-5, L5-S1. DISC SPACES: Moderate narrowing L2-3, L3-4. PARASPINOUS:No paraspinous abnormality is seen. OTHER: Negative. IMPRESSION: 1. No fracture. 2. Moderate degenerative changes of the lumbar spine as detailed above. documented in this [id number] History general Narrative - Reported* Type Description Date Medical History seasonal allergies Medical History low backpain Medical History sebaceous cyst of left breast Surgical History L1-l2 laminectomy microdiscecto my left 12/02/2014 Surgical History surgery for endometriosis 2015 [facility] Other Evaluation note* Diagnosis Lumbar radiculopathy- Primary Thoracic or lumbosacral neuritis or radiculitis, unspecified [facility] Lumbar facet arthropathy- Primary Spondylosis of unspecified site without mention of myelopathy Lumbar radiculopathy Thoracic or lumbosacral neuritis or radiculitis, unspecified Lumbar degenerative disc disease Scoliosis, unspecified scoliosis type, unspecified spinal region Lumbar radiculopathy Thoracic or lumbosacral neuritis or radiculitis, unspecified [facility] Diagnosis Lumbar disc herniation with radiculopathy Displacement of lumbar intervertebral disc without myelopathy Tobacco abuse Tobacco use disorder [facility] Diagnosis Lumbar disc herniation with radiculopathy- Primary Displacement of lumbar intervertebral disc without myelopathy Lumbar disc herniation with radiculopathy- Primary Displacement of lumbar intervertebral disc without myelopathy Lumbar disc herniation with radiculopathy Displacement of lumbar intervertebral disc without myelopathy [facility] Diagnosis Lumbar disc herniation with radiculopathy- Primary Displacement of lumbar intervertebral disc without myelopathy Chronic systolic HF (heart failure) (HCC)- Primary Chronic systolic heart failure Lumbar disc herniation with radiculopathy Displacement of lumbar intervertebral disc without myelopathy [facility] Diagnosis Lumbar disc herniation with radiculopathy- Primary Displacement of lumbar intervertebral disc without myelopathy LBBB (left bundle branch block)- Primary Other left bundle branch block Pre-op testing Unspecified pre-operative examination Chronic systolic HF (heart failure) (HCC) Chronic systolic heart failure LBBB (left bundle branch block) Other left bundle branch block [facility] Diagnosis Chronic systolic HF (heart failure) (HCC) Chronic systolic heart failure Hypertension, unspecified type HFrEF (heart failure with reduced ejection fraction) (HCC) [facility]* Diagnosis Chronic systolic HF (heart failure) (HCC)- Primary Chronic systolic heart failure Pre-operative cardiovascular examination Abnormal stress test Other nonspecific abnormal cardiovascular system function study 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 [facility] Diagnosis HFrEF (heart failure with reduced ejection fraction) (HCC)- Primary Hypertension, unspecified type [facility] [employer] Other Evaluation note* Diagnosis HFrEF (heart failure with reduced ejection fraction) (HCC)- Primary Hypertension, unspecified type [facility] Diagnosis Chronic systolic HF (heart failure) (HCC)- Primary Chronic systolic heart failure Pre-operative cardiovascular examination Hyperlipidemia, unspecified hyperlipidemia type [facility] Diagnosis Chronic systolic HF (heart failure) (HCC)- Primary Chronic systolic heart failure Pre-operative cardiovascular examination Hyperlipidemia, unspecified hyperlipidemia type [facility]* Diagnosis Lumbar disc herniation with radiculopathy- Primary Displacement of lumbar intervertebral disc without myelopathy [facility]* Diagnosis Lumbar disc herniation with radiculopathy- Primary Displacement of lumbar intervertebral disc without myelopathy HFrEF (heart failure with reduced ejection fraction) (HCC)- Primary Hypertension, unspecified type Lumbar disc herniation with radiculopathy Displacement of lumbar intervertebral disc without myelopathy [facility]* Diagnosis Lumbar disc herniation with radiculopathy- Primary Displacement of lumbar intervertebral disc without myelopathy [facility]* Diagnosis Lumbar disc herniation with radiculopathy- Primary Displacement of lumbar intervertebral disc without myelopathy [facility]* Diagnosis Lumbar disc herniation with radiculopathy- Primary Displacement of lumbar intervertebral disc without myelopathy Status post lumbar discectomy Other postprocedural status [facility] Diagnosis Status post lumbar discectomy- Primary Other postprocedural status [facility]* Diagnosis Lumbar disc herniation with radiculopathy- Primary Displacement of lumbar intervertebral disc without myelopathy Status post discectomy Other postprocedural status Facet arthropathy Spondylosis of unspecified site without mention of myelopathy [facility]* Diagnosis Chronic systolic HF (heart failure) (HCC) Chronic systolic heart failure [facility]* Diagnosis Status post lumbar discectomy- Primary Other postprocedural status Facet arthropathy Spondylosis of unspecified site without mention of myelopathy Status post lumbar discectomy Other postprocedural status [facility]* Diagnosis Scoliosis, unspecified scoliosis type, unspecified spinal region- Primary Scoliosis of lumbar spine, unspecified scoliosis type documented in this encounter [facility] Diagnosis Chronic systolic HF (heart failure) (HCC)- Primary Chronic systolic heart failure Hyperlipidemia, unspecified hyperlipidemia type documented in this encounter [facility] note* Diagnosis Failed back syndrome, lumbosacral [facility] Diagnosis Failed back syndrome, lumbosacral- Primary documented [facility]* Diagnosis Failed back syndrome, lumbosacral- Primary documented in [facility]* Diagnosis Failed back syndrome, lumbosacral- Primary Spinal cord stimulator status documented [facility]* Diagnosis Failed back syndrome, lumbosacral- Primary Failed back syndrome, lumbosacral S/P insertion of spinal cord stimulator documented [facility]* Diagnosis Status post insertion of spinal cord stimulator- Primary Failed back syndrome, lumbosacral Status post lumbar discectomy Other postprocedural status Neuropathy Mononeuritis of unspecified site [facility]* Diagnosis Status post insertion of spinal cord stimulator- Primary Neuropathy Mononeuritis of unspecified site [facility] Diagnosis Status post insertion of spinal cord stimulator- Primary documented [facility]* Diagnosis Status post insertion of spinal cord stimulator- Primary Failed back syndrome, lumbosacral Neuropathy Mononeuritis of unspecified site [facility] Diagnosis Status post insertion of spinal cord stimulator- Primary [facility]* Diagnosis Status post insertion of spinal cord stimulator- Primary [facility] Diagnosis Ellison sign present- Primary Numbness and tingling in left arm [facility] Diagnosis Ellison sign present- Primary [facility]* Diagnosis Carpal tunnel syndrome on left- Primary Carpal tunnel syndrome Ellison sign present Numbness and tingling in left arm documented in this encounter [facility] note* Diagnosis Chronic systolic HF (heart failure) (HCC) Chronic systolic heart failure [facility]* Diagnosis Chronic systolic HF (heart failure) (HCC) Chronic systolic heart failure [facility]* Diagnosis Chronic systolic HF (heart failure) (HCC)- Primary Chronic systolic heart failure DE OLIVEIRA (dyspnea on exertion) Other dyspnea and respiratory abnormality Chest pressure Other chest pain Hyperlipidemia, unspecified hyperlipidemia type documented in this encounter [facility] note* Diagnosis Chronic systolic HF (heart failure) (HCC) Chronic systolic heart failure [facility]* Diagnosis Onset Date Resolution Status Anxiety acute Chronic systolic heart failure acute Right shoulder pain acute [facility] Work Phone: Evaluation note* Diagnosis Onset Date Resolution Status Anxiety acute Chronic systolic heart failure acute Right shoulder pain acute Biceps tendonitis on right a cute Rotator cuff syndrome of right shoulder acute [facility] Work Phone: Evaluation note* Diagnosis Onset Date Resolution Status Anxiety acute Chronic systolic heart failure acute Right shoulder pain acute Biceps tendonitis on right a cute Rotator cuff syndrome of right shoulder acute Arthritis of right acromioclavicular joint acute Biceps tendonitis on right a cute Rotator cuff syndrome of right shoulder acute [facility] Work Phone: Evaluation note* Diagnosis Plantar fasciitis- Primary Plantar fascial fibromatosis Contracture of left ankle documented in this encounter [facility]* Diagnosis Plantar fasciitis- Primary Plantar fascial fibromatosis Contracture of left ankle documented in this encounter [facility] HealthcareEvaluation note* Diagnosis Plantar fasciitis- Primary Plantar fascial fibromatosis Contracture of left ankle documented in this encounter [facility] HealthcareEvaluation noteNo assessment information availableProm[facility] Work Phone: History general Narrative - Reported* Type Description Date Medical History seasonal allergies Medical History low backpain Medical History LBBB Medical History lumbar radiculopathy,right Medical History situational anxiety Medical History cardiac ejection fraction Medical History decreased cardiac ejection fract ion Medical History chronic systolic heart failure Surgical History L1-l2 laminectomy microdiscecto my left 12/02/2014 Surgical History surgery for endometriosis 2015 Surgical History laminectomy/discectomy 01/14/20 22 [facility] Other History general Narrative - Reported* Type Description Date Medical History seasonal allergies Medical History low backpain Medical History LBBB Medical History lumbar radiculopathy,right Medical History situational anxiety Medical History cardiac ejection fraction Medical History decreased cardiac ejection fract ion Medical History chronic systolic heart failure Surgical History L1-l2 laminectomy microdiscecto my left 12/02/2014 Surgical History surgery for endometriosis 2015 Surgical History laminectomy/discectomy 01/14/20 22 Hospitalization History see surgical hx [facility] Other Hospital Discharge instructionsAmbulatory Orders* Referral to Cardiology Time Frame: 06/22/23, Location: None Selected * Referral to Orthopedic Surgery Time Frame: 06/22/23, Location: None Selected [facility] Work Phone: Instructions* Attachments The following attachments cannot be sent through Care Everywhere. * Heart Failure: Medicines to Avoid (Northern Irish) * Neuropathic Pain (Northern Irish) [facility] Narrative* Auth/Cert Specialty Diagnoses / Procedures Referred By Contac t Referred To Contact Diagnoses Lumbar disc herniation with radiculopathy Lumbar disc herniation with radiculopathy [M51.16] Procedures LA LAMNOTMY INCL W/DCMPRSN NRV ROOT 1 INTRSPC LUMBR Right L2-3 Minimally Invasive Hemilaminectomy, Foraminotomy, and Discectomy Edgar Dhaliwal MD [address] [address] Referral ID Status Reason Start Date Expiration Date Visits Re quested Visits Authorized [id number] 12/06/2021 1 1 [facility] for visit Narrative* Auth/Cert Specialty Diagnoses / Procedures Referred By Contac t Referred To Contact Diagnoses Failed back syndrome, lumbosacral Failed back syndrome, lumbosacral [M96.1] Procedures LA PRQ IMPLTJ NSTIM ELECTRODE ARRAY EPIDURAL Bilateral Insertion Trial Spinal Cord Stimulator via Fluoroscopic T12-L2 Approach Edgar Dhaliwal MD [address] [employer] [address] [place] [address] Referral ID Status Reason Start Date Expiration Date Visits Re quested Visits Authorized [id number] 07/17/2022 1 1 [facility]* Auth/Cert Specialty Diagnoses / Procedures Referred By Contac t Referred To Contact Diagnoses Failed back syndrome, lumbosacral Failed back syndrome, lumbosacral [M96.1] Procedures LA SCHNEIDER IMPLTJ NSTIM ELTRDS PLATE/PADDLE EDRL LA INSJ/RPLCMT SPI NPGR DIR/INDUXIVE COUPLING Thoracic 10-11 Laminectomy, Insertion of Permanent Spinal Cord Stimulator Electrodes and Insertion of Right Flank Implantable Pulse Generator. Edgar Dhaliwal MD [address] [place] [address] Referral ID Status Reason Start Date Expiration Date Visits Re quested Visits Authorized [id number] 08/08/2022 1 1 [facility] Reason for Referral Specialty Diagnoses / Procedures Referred By Contac t Referred To Contact Neurosurgery Diagnoses Lumbar radiculopathy Clair Dahl MD [address] [place] [address] Edgar Dhaliwal MD [address] [place] [address] Referral ID Status Reason Start Date Expiration Date V isits Requested Visits Authorized [id number] Authorized 02/17/2021 02/17/2022 1 1 Specialty Diagnoses / Procedures Referred By Contac t Referred To Contact Radiology Diagnoses Lumbar radiculopathy Lumbar facet arthropathy Lumbar degenerative disc disease Scoliosis, unspecified scoliosis type, unspecified spinal region Procedures MR Lumbar Spine Without Contrast Erika Louis PA-C [address] [place] [address] Referral ID Status Reason Start Date Expiration Date V isits Requested Visits Authorized [id number] New Request 03/08/2021 03/08/2022 1 1 Specialty Diagnoses / Procedures Referred By Contac t Referred To Contact Cardiology Diagnoses Chronic systolic HF (heart failure) (HCC) Vijay Acuna MD [address] [place] [address] Ami Power, [employer] [address] [place] [address] Referral ID Status Reason Start Date Expiration Date V isits Requested Visits Authorized [id number] Authorized 07/06/2021 07/06/2022 1 1 Specialty Diagnoses / Procedures Referred By Contac t Referred To Contact Radiology Diagnoses Chronic systolic HF (heart failure) (HCC) Procedures NM Myocardial Perfusion Multiple SPECT Vijay Acuna MD [address] [place] [address] Referral ID Status Reason Start Date Expiration Date V isits Requested Visits Authorized [id number] Authorized 07/06/2021 07/06/2022 4 4 Specialty Diagnoses / Procedures Referred By Contac t Referred To Contact Cardiology Diagnoses LBBB (left bundle branch block) Procedures Echocardiogram complete Vijay Acuna MD [address] [place] [address] Referral ID Status Reason Start Date Expiration Date Visits Re quested Visits Authorized [id number] Closed 07/05/2021 07/05/2022 1 1 Specialty Diagnoses / Procedures Referred By Contac t Referred To Contact Ami Power, [employer] [address] [place] [address] Referral ID Status Reason Start Date Expiration Date V isits Requested Visits Authorized [id number] Pending Review 1 1 Specialty Diagnoses / Procedures Referred By Contac t Referred To Contact Cardiology Diagnoses Chronic systolic HF (heart failure) (HCC) Procedures Echocardiogram complete Vijay Acuna MD [address] [place] [address] Referral ID Status Reason Start Date Expiration Date V isits Requested Visits Authorized [id number] New Request 10/16/2021 10/16/2022 1 1 Specialty Diagnoses / Procedures Referred By Contac t Referred To Contact Physical Therapy Diagnoses Lumbar disc herniation with radiculopathy Status post discectomy Facet arthropathy Erika Louis PA-C [address] [facility] [address] [place] [address] OF SERVICE NOT IN SYSTEM Referral ID Status Reason Start Date Expiration Date Visits Requested Visits Authorized [id number] Pending Review Patient Preference 2 03/02/2023 1 1 Specialty Diagnoses / Procedures Referred By Contac t Referred To Contact Radiology Diagnoses Status post lumbar discectomy Procedures MR Lumbar Spine Without Contrast Erika Louis PA-C [address] [facility] [address] [place] [address] [address] Referral ID Status Reason Start Date Expiration Date V isits Requested Visits Authorized [id number] New Request 04/20/2022 04/20/2023 1 1 Reason 03/22/22 Notes lef t heel pain and endorses all symptoms of plantar fasciitis Diagnosis 1 Plantar fasciitis, l eft (M72.2) Referral Organization [facility] marylou Referring Provider First Name Clair Referring Provider Last Name Nabila Referring Provider Specialty [facility] Referred Organization [facility] Referred Provider Sarah Jean Referred Address [address] [place], [place],[address] Referred Provider Specialty Podiatry - S urgical Chiropody Referral Priority Routine Referral Appointment Date 2022-03-22 General Notes Shanae Montejo 02:22:59 PM >received today, notes locked, insurance card attached, and referral faxed Shanae Montejo 03/15/2022 08:36:17 AM >faxed first attempt letter Shanae Montejo 03/15/2022 01:29:20 PM >received fax that referral was never received. faxed over again at this time. Shanae Montejo 03/22/2022 09:35:49 AM >faxed first attempt letter again Shanae Montejo 03/22/2022 02:04:48 PM >received fax with appt date and time Shanae Montejo 03/23/2022 03:21:14 PM >faxed first request for consult notes Shanae Montejo 03/24/2022 09:21:28 AM >received notes and scanned into chart for review. closing referral at this time. Reason *FU 09/20 has resi dual pain after a pain device was just placed in [place]. Send recent op notes. Questions if an injection could be beneficial. Diagnosis 1 Thoracic spine pain (M54.6) Referral Organization [facility] marylou Referring Provider First Name Clair Referring Provider Last Name Nabila Referring Provider Specialty [facility] Referred Organization [facility] Referred Address [address] [place], [place],[address] Referred Provider Specialty Pain Medicin e Referral Priority Routine General Notes Shanae Montejo 02:32:34 PM >received today, notes locked, attachments made, referral faxed Specialty Diagnoses / Procedures Referred By Contac t Referred To Contact Jessenia Saldana MD [address] [place] [address] Referral ID Status Reason Start Date Expiration Date V isits Requested Visits Authorized [id number] Pending Review 1 1 Specialty Diagnoses / Procedures Referred By Contac t Referred To Contact Neurology Diagnoses Ellison sign present Numbness and tingling in left arm Caroline Carrion PA-C [address] [address] Vikram Fowler MD 335 [facility] [address] [address] Referral ID Status Reason Start Date Expiration Date V isits Requested Visits Authorized [id number] Authorized 12/13/2022 12/13/2023 1 1 Specialty Diagnoses / Procedures Referred By Contac t Referred To Contact Radiology Diagnoses Ellison sign present Numbness and tingling in left arm Procedures MR Cervical Spine Without Contrast Caroline Carrion PA-C [address] [address] Referral ID Status Reason Start Date Expiration Date V isits Requested Visits Authorized [id number] New Request 12/13/2022 12/13/2023 1 1 Specialty Diagnoses / Procedures Referred By Contac t Referred To Contact Radiology Diagnoses Ellison sign present Procedures MR Brain Without Contrast Caroline Carrion PA-C [address] [address] Referral ID Status Reason Start Date Expiration Date V isits Requested Visits Authorized [id number] New Request 01/29/2023 01/29/2024 1 1 Specialty Diagnoses / Procedures Referred By Contac t Referred To Contact Cardiology Diagnoses DE OLIVEIRA (dyspnea on exertion) Chest pressure Procedures Echocardiogram complete Vijay Acuna MD [address] [place] [address] Referral ID Status Reason Start Date Expiration Date V isits Requested Visits Authorized [id number] New Request 06/19/2023 06/18/2024 1 1 Advance Directives Documents on File Type Date Recorded Patient [place]cher [place] Expl anation Advance Directives and Living Will 03/07/2021 12:06 PM NOT ON FILE HERE Documents on File Type Date Recorded Patient [place] Expl anation Advance Directives and Living Will 03/07/2021 12:06 PM NOT ON FILE HERE Documents on File Type Date Recorded Patient [place] Expl anation Advance Directives and Living Will 07/04/2021 12:06 PM NOT ON FILE HERE Documents on File Type Date Recorded Patient [place] Expl anation Advance Directives and Living Will 07/05/2021 1:46 PM NOT ON FILE HERE Latest Code Status on File Code Status Date Activated Date Inactivated Comments Full Code 08/23/2021 9:22 AM 08/23/2021 10:20 AM Latest Code Status on File Code Status Date Activated Date Inactivated Comments Full Code 08/23/2021 9:22 AM 08/23/2021 10:20 AM Latest Code Status on File Date Activated Date Inactivated Comments 08/23/2021 9:22 AM 08/23/2021 10:20 AM Latest Code Status on File Date Activated Date Inactivated Comments 08/23/2021 9:22 AM 08/23/2021 10:20 AM Latest Code Status on File Code Status Date Activated Date Inactivated Comments Full Code 08/23/2021 9:22 AM 08/23/2021 10:20 AM Latest Code Status on File Code Status Date Activated Date Inactivated Comments Full Code 08/23/2021 9:22 AM 08/23/2021 10:20 AM Latest Code Status on File Code Status Date Activated Date Inactivated Comments Full Code 08/24/2022 2:45 PM 08/25/2022 3:50 PM Code Status History Code Status Date Activated Date Inactivated Comments Full Code 08/23/2021 9:22 AM 08/23/2021 10:20 AM Latest Code Status on File Code Status Date Activated Date Inactivated Comments Full Code 08/24/2022 2:45 PM 08/25/2022 3:50 PM Code Status History Code Status Date Activated Date Inactivated Comments Full Code 08/23/2021 9:22 AM 08/23/2021 10:20 AM Date Activated Date Inactivated Comments 08/24/2022 2:45 PM 08/25/2022 3:50 PM Date Activated Date Inactivated Comments 08/23/2021 9:22 AM 08/23/2021 10:20 AM Date Activated Date Inactivated Comments 08/24/2022 2:45 PM 08/25/2022 3:50 PM Date Activated Date Inactivated Comments 08/23/2021 9:22 AM 08/23/2021 10:20 AM Advance Directive Response Recorded Date/ Time Advance Directives No February 9:11am Summary Purpose Family History Relationship Condition Age at Onset Recorded Date/T geoff brother Heart disease Unknown Diabetes mellitus Unknown brother Diabetes mellitus Unknown Not Specified Malignant neoplasm Unknown Not Specified Diabetes mellitus Unknown Relationship Condition Age at Onset Recorded Date/T geoff brother Heart disease Unknown Diabetes mellitus Unknown brother Diabetes mellitus Unknown mother Malignant neoplasm Unknown mother Diabetes mellitus Unknown Chief Complaint and Reason for Visit Chief Complaint check up Reason for Visit Anxiety Chronic systolic heart failure Right shoulder pain Chief Complaint check up CONSULT DR CLAIR DAHL RT SHOULDER PAIN, NX M25.511 - Pain in right shoulder Reason for Visit Anxiety Chronic systolic heart failure Right shoulder pain Biceps tendonitis on right Rotator cuff syndrome of right shoulder Chief Complaint check up CONSULT DR CLAIR DAHL RT SHOULDER PAIN, NX M25.511 - Pain in right shoulder 6-8 week recheck Reason for Visit Anxiety Chronic systolic heart failure Right shoulder pain Biceps tendonitis on right Rotator cuff syndrome of right shoulder Arthritis of right acromioclavicular joint Biceps tendonitis on right Rotator cuff syndrome of right shoulder Chief Complaint Admit Date UA, frequency, odor, tenderness May 1:32pm Reason for Visit Admit Date Dysuria May 08, 2024 1:32 pm Chief Complaint Admit Date R30 May 08, 2024 1:00 pm UA, frequency, odor, tenderness May 1:32pm to go over UA May 23, 2024 11: 25am Reason for Visit Admit Date Dysuria May 08, 2024 1:32 pm Chronic systolic heart failure May 11:25am Hematuria May 23, 2024 11: 25am HTN (hypertension) May 23, 2024 11: 25am Weight gain May 23, 2024 11: 25am Additional Source Comments Care Teams (unrecognized sec tion and content) Operations Manager Station Relationship Specialty Start Date End Date Clair Dahl MD [address] [place] [id number] PCP - General Family Medicine 02/17/21 Operations Manager Station Relationship Specialty Start Date End Date Clair Dahl MD [address] [place] [address] PCP - General Family Medicine 02/17/21 Operations Manager Station Relationship Specialty [place] [address] [place] [address] PCP - General Family Medicine 02/17/21 Operations Manager Station Relationship Specialty [place] [address] [place] [address] PCP - General Family Medicine 02/17/21 Operations Manager Station Relationship Specialty Start Date End Date Clair Dahl MD [address] [place] [address] [place] [address] PCP - General Family Medicine 02/17/21 Operations Manager Station Relationship Specialty Start Date End Date Clair Dahl MD [address] [place] [address] [place] [address] PCP - General Family Medicine 02/17/21 Operations Manager Station Relationship Specialty Start Date End Date Clair Dahl MD [address] [place] [address] [place] [address] PCP - General Family Medicine 02/17/21 Operations Manager Station Relationship Specialty Start Date End Date Clair Dahl MD [address] [place] [address] [place] [address] PCP - General Family Medicine 02/17/21 Operations Manager Station Relationship Specialty Start Date End Date Clair Dahl MD [address] [place] [address] [place] [address] PCP - General Family Medicine 02/17/21 Operations Manager Station Relationship Specialty Start Date End Date Clair Dahl MD [address] [place] [address] [place] [address] PCP - General Family Medicine 02/17/21 Operations Manager Station Relationship Specialty Start Date End Date Clair Dahl MD [address] [place] [address] [place] [address] PCP - General Family Medicine 02/17/21 Operations Manager Station Relationship Specialty Start Date End Date Clair Dahl MD [address] [place] [address] [place] [address] PCP - General Family Medicine 02/17/21 Operations Manager Station Relationship Specialty Start Date End Date Clair Dahl MD [address] [place] [address] [place] [address] PCP - General Family Medicine 02/17/21 Operations Manager Station Relationship Specialty [place] [address] [place] [address] [place] [address] PCP - General Family Medicine 02/17/21 Operations Manager Station Relationship Specialty Start Date End Date Clair Dahl MD [address] [place] [address] [place] [address] PCP - General Family Medicine 02/17/21 Operations Manager Station Relationship Specialty Start Date End Date Clair Dahl MD [address] [place] [address] [place] [address] PCP - General Family Medicine 02/17/21 Operations Manager Station Relationship Specialty Start Date End Date Clair Dahl MD [address] [place], [place] [address], [place] [address] PCP - General Family Medicine 02/17/21 Operations Manager Station Relationship Specialty Start Date End Date Clair Dahl MD [address] [place] [address] [place] [address] PCP - General Family Medicine 02/17/21 Operations Manager Station Relationship Specialty Start Date End Date Clair Dahl MD [address] [place] [address] [place] [address] PCP - General Family Medicine 02/17/21 Operations Manager Station Relationship Specialty [place] [address] [place] [address] [address] [facility] [place] [address] PCP - General Family Medicine 02/17/21 Operations Manager Station Relationship Specialty [place] [address] [place] [address] [place] [address] PCP - General Family Medicine 02/17/21 Operations Manager Station Relationship Specialty Start Date End Date Clair Dahl MD [address] [place] [address] [place] [address] PCP - General Family Medicine 02/17/21 Operations Manager Station Relationship Specialty Start Date End Date Clair Dahl MD [address] [place] [address] [place] [address] PCP - General Family Medicine 02/17/21 Operations Manager Station Relationship Specialty Start Date End Date Clair Dahl MD [address] [facility] [address] [place] [address] PCP - General Family Medicine 02/17/21 Operations Manager Station Relationship Specialty Start Date End Date Clair Dahl MD [address] [facility] [address] [place] [address] PCP - General Family Medicine 02/17/21 Operations Manager Station Relationship Specialty Start Date End Date Clair Dahl MD [address] [facility] [address] [place] [address] PCP - General Family Medicine 02/17/21 Operations Manager Station Relationship Specialty Start Date End Date Clair Dahl MD [address] [facility] [address] [place] [address] PCP - General Family Medicine 02/17/21 Operations Manager Station Relationship Specialty Start Date End Date Clair Dahl MD [address] [facility] [address] [place] [address] PCP - General Family Medicine 02/17/21 Operations Manager Station Relationship Specialty Start Date End Date Clair Dahl MD [address] [place] [address] [place] [address] PCP - General Family Medicine 02/17/21 Operations Manager Station Relationship Specialty [place] [address] [place] [address], [place] [address] PCP - General Family Medicine 02/17/21 Operations Manager Station Relationship Specialty Start Date End Date Clair Dhal MD [address] [place] [address], [place] [address] PCP - General Family Medicine 02/17/21 Operations Manager Station Relationship Specialty Start Date End Date Clair Dahl MD [address] [place] [address], [place] [address] PCP - General Family Medicine 02/17/21 Operations Manager Station Relationship Specialty Start Date End Date Clair Dahl MD [address] [place] [address], [place] [address] PCP - General Family Medicine 02/17/21 Operations Manager Station Relationship Specialty Start Date End Date Clair Dahl MD [address] [place] [address] PCP - General Family Medicine 02/17/21 Operations Manager Station Relationship Specialty Start Date End Date Clair Dahl MD [address] [place] [address], [place] [address] PCP - General Family Medicine 02/17/21 Operations Manager Station Relationship Specialty [place] [address] [place] [address] PCP - General Family Medicine 02/17/21 Operations Manager Station Relationship Specialty Start Date End Date Clair Dahl MD [address] [place], [place] [address], [place] [address] PCP - General Family Medicine 02/17/21 Operations Manager Station Relationship Specialty Start Date End Date Clair Dahl MD [address] [place] [address] [place] [address] PCP - General Family Medicine 02/17/21 Operations Manager Station Relationship Specialty Start Date End Date lCair Dahl MD [address] [place] [address] [place] [address] PCP - General Family Medicine 02/17/21 Team Status: Active Member Role Status Dates Clair Dahl MD Primary Care Provider Active Team Status: Inactive Member Role Status Dates Clair Dahl MD Primary Care Provide r, Attending Provider Active Start: June 22, 2023 End: June 22, 2023 Team Status: Inactive Member Role Status Dates Clair Dahl MD Primary Care Provider Active Start: July 03, 2023 End: July 03, 2023 Tuan Gonzalez DO Attending Provider Active St art: July 03, 2023 End: July 03, 2023 Team Status: Active Member Role Status Dates Clair Dahl MD Primary Care Provider Active Start: July 03, 2023 Tuan Gonzalez DO Attending Provider Active St art: July 03, 2023 Team Status: Inactive Member Role Status Dates Clair Dahl MD Primary Care Provider Active Start: August 28, 2023 End: August 28, 2023 Tuan Gonzalez DO Attending Provider Active St art: August 28, 2023 End: August 28, 2023 Operations Manager Station Relationship Specialty Start Date End Date Clair Dahl MD [address] [place] [address] [place] [address] PCP - General Family Medicine 02/17/21 Operations Manager Station Relationship Specialty Start Date End Date Clair Dahl MD [address] [facility] [place] [id number] PCP - General Family Medicine 10/11/23 Operations Manager Station Relationship Specialty Start Date End Date Clair Dahl MD [address] [place] [facility] [place] [address] PCP - General Family Medicine 10/11/23 Operations Manager Station Relationship Specialty Start Date End Date Clair Dahl MD [address] [place] [facility] [place] [address] PCP - General Family Medicine 10/11/23 Operations Manager Station Relationship Specialty Start Date End Date Clair Dahl MD [address] [place] [facility] [place] [id number] PCP - General Family Medicine 10/11/23 Operations Manager Station Relationship Specialty Start Date End Date Clair Dahl MD [address] [facility] [place] [address] PCP - General Family Medicine 02/17/21 Operations Manager Station Relationship Specialty Start Date End Date Clair Dahl MD [address] [facility] [place] [address] PCP - General Family Medicine 02/17/21 Operations Manager Station Relationship Specialty Start Date End Date Clair Dahl MD [address] [place] [facility] [place] [address] PCP - General Family Medicine 02/17/21 Team Status: Inactive Member Role Status Dates Cliar Dahl MD Primary Care Provide r, Attending Provider Active Start: May 08, 2024 End: May 08, 2024 Team Status: Inactive Member Role Status Dates Clair Dahl MD Attending Provider Active St art: May 08, 2024 End: May 08, 2024 Team Status: Inactive Member Role Status Dates Clair Dahl MD Primary Care Provide r, Attending Provider Active Start: May 23, 2024 End: May 23, 2024 Reason for Visit (unrecogniz ed section and content) Reason Comments Back Pain Patient has low righ t back pain that is predominately in the middle of back that travels to the right hip and the top of the right thigh stopping at the right knee. Sometimes the pain is on the left. Patient has numbness, tingling and spasms. Patient uses a walker and cane to get around Specialty Diagnoses / Procedures Referred By Carlos andrews Referred To Contact Neurosurgery Diagnoses Lumbar radiculopathy Clair Dahl MD [address] [facility] [place] [address] Edgar Dhaliwal MD [address] [place] [address] Referral ID Status Reason Start Date Expiration Date Visits Re quested Visits Authorized [id number] Closed 02/17/2021 02/17/2022 1 1 Reason Comments Results MRI Lumbar Reason Comments Patient Education Reason Comments Pre-op Exam Minimal invasive uvaldo k surgery on a disc Abnormal ECG Per CLAUDIO Roach Specialty Diagnoses / Procedures Referred By Carlos andrews Referred To Contact Cardiology Diagnoses Pre-op testing Daylin Ernandez, [employer] [address] [place] [address] [facility] [address]rit[address] [place], [place] [address] [place] [place] [address] Referral ID Status Reason Start Date Expiration Date Visits Re quested Visits Authorized [id number] Closed 07/11/2021 07/11/2022 1 1 Reason Comments Congestive Heart Failure Specialty Diagnoses / Procedures Referred By Contdavi t Referred To Contact Cardiology Diagnoses Chronic systolic HF (heart failure) ([facility]) Vijay Acuna MD [address] [place] [address] [employer] CNS [address] [place] [address] Referral ID Status Reason Start Date Expiration Date Visits Re quested Visits Authorized [id number] Closed 07/06/2021 07/06/2022 1 1 Reason Comments Follow-up 4 week/review SPECT/ states This is the best I have felt in a long time. Reason Comments Congestive Heart Failure Reason Onset Date Comments Medication Refill 09/01/2021 Reason Comments Follow-up 4 wk post C f/u--f atigue Reason Comments Follow-up 6 wk review ECHO Reason Comments Follow-up Patient presents her e today for follow up after clam picker visit and discuss surgery. Reason Comments Wound Check Reason Comments Post-op Patient presents her e today for post op 2 week right L2-3 minimally invasive hemilaminectomy, foraminotomy, disectomy, Reason Comments Post-op L2-3 MIS Nuha/Lami/d isecomy. She has an ache of a 4 in her back. Reason Onset Date Comments Medication Refill 04/17/2022 Reason Comments Follow-up S/P MIS l2-3 nuha/la mi on 01/13/22. Patient reports she is achey, its not as bad as before but its still there . Just completed 6 weeks of PT and she feels it helped with strength but not with removing the ache . Unable to walk very far before the ache beings and she has to sit for several hours before it subsides. Reason Comments Follow-up Patient presents her e for follow up after MRI. Reason Comments Follow-up 6 mo/no cardiac conc erns today Reason Comments Follow-up Follow up after scol i Reason Comments Wound Check Dressing check trial SCS, Dayana Gould check SCS Reason Comments Post-op Patient presents jerome mendosa for a trial lead pull after scs insertion on 08/01/22 [facility]. Patient reports she is doing pretty good and is ready to have them out so she can shower. Reason Comments Post-op S/P spinal cord stim ulator insertion on 08/24/22 [facility]. Patient still has intense pain under her left shoulder blade. Patient does not have much pain at the incision site. Reason Comments Post-op Patient presents jerome mendosa for a post op of perm SCS on 08/24/22. Patient states that she feels like it wants to pop out of skin . Patient states that if she turns up the stimulator that she gets tingles in left arm and left foot . Reason Onset Date Comments Medication Refill 10/02/2022 Reason Comments Post-op Patient presents tod ay for a post op of perm SCS 08/24/22. Patient states that she limping with pain down her left leg especially when she turns up the device. Patient states that she is still having severe nerve pain. Reason Onset Date Comments Medication Refill 11/01/2022 Reason Comments Follow-up Status post insertio n of spinal cord stimulator Reason Comments Post-op Patient presents tod ay for a post op of SCS. Patient states that she feels tingles in her left arm and leg. Reason Comments Medication Refill Specialty Diagnoses / Procedures Referred By Carlos t Referred To Contact Neurology Diagnoses Ellison sign present Numbness and tingling in left arm Caroline Carrion PA-C [address] [place] [address] Vikram Fowler MD [address] [place] [address] Referral ID Status Reason Start Date Expiration Date Visits Re quested Visits Authorized [id number] Closed 12/13/2022 12/13/2023 1 1 Reason Onset Date Comments Medication Refill 05/16/2023 Reason Onset Date Comments Medication Refill 05/31/2023 Reason Comments Follow-up 1 yr chest pressure when walking/Anxiety/SOB/sometimes feels like someone is squeezing heart Reason Onset Date Comments Medication Refill 06/21/2023 Reason Onset Date Comments Medication Refill 10/17/2023 Reason Comments Plantar Fasciitis PF / SX talk Reason Comments Plantar Fasciitis 2wk F/U PF Reason Comments Follow-up Lt pf inj Reason Comments Follow-up 2WK LT INJ 3 Reason Onset Date Comments Medication Refill 04/16/2024 Scheduled Active and Recently Administ ered Medications (unrecognized section and content) Medication Order 01/11/2022 01/12/2022 01/13/2022 clindamycin (CLEOCIN) IVPB 900 mg (premix) (COMPLETED) 900 mg, Intravenous, at 100 mL/hr, Once, On Sun01/13/22 at 0700, For 1 dose, Pre-Procedure, Administer prior to incision., Indication (PRE PROCEDURE): pre procedure 0825 (Given - Provid er: NANI Mclean)0855 (Stopped - Provider: NANI Mclean) lidocaine 10 mg/mL (1 %) injection 0.2 mL 0.2 mL, Intradermal, Once, On Sun01/13/22 at 0700, For 1 dose, Pre-Procedure, Around site prior to IV insertion 0700 (Due) Continuous Medication Order 01/11/2022 01/12/2022 01/13/2022 lactated Ringers infusion 100 mL/hr, Intravenous, Continuous, Starting on Sun01/13/22 at 1115, PACU (only) 1115 (Due) sodium chloride 0.9% (NS) 75 mL/hr, Intravenous, Continuous, Starting on Sun01/13/22 at 0700, Pre-Procedure 0643 (New Bag - Prov ider: Lissett Art RN)0754 (Paused - Provider: NANI Mclean - Comment: Switch to gravity)0755 (Restarted - Provider: NANI Mclean)0934 (Stopped - Provider: NANI Mclean) PRN Medication Order 01/11/2022 01/12/2022 01/13/2022 fentaNYL (SUBLIMAZE) injection 25 mcg 25 mcg, Intravenous, Every 5 min PRN, Pain, Starting on Sun01/13/22 at 1022, For 4 doses, PACU (only), [] Do not give more than 100 mcg while in PACU. HYDROmorphone (DILAUDID) injection 0.5 mg 0.5 mg, Intravenous, Every 5 min PRN, Pain, Starting on Sun01/13/22 at 1022, For 6 doses, PACU (only), Give if fentanyl not effective or not ordered. Do not give more than 3 mg total. lidocaine 1% (PF) (XYLOCAINE-MPF) 30 mL, bupivacaine (PF) (MARCAINE) 0.5 % (5 mg/mL) 30 mL injection (CANCELED) As needed, Starting on Sun01/13/22 at 0854, Intra-Procedure 0854 (Given - Provid er: Edgar Dhaliwal MD - Comment: surgical site) meperidine (PF) (DEMEROL) injection 12.5 mg 12.5 mg, Intravenous, Every 5 min PRN, shivering, Starting on Sun01/13/22 at 1022, For 2 doses, PACU (only), Do not give more than 25 mg total., RESTRICTED to use in rigors OR pain management in patients with a documented opioid allergy. Please select this medication s indication. Rigors methylPREDNISolone acetate (DEPO-medrol) injection (CANCELED) As needed, Starting on Sun01/13/22 at 1003, Intra-Procedure 1003 (Given - Provid er: Edgar Dhaliwal MD - Comment: Back) naloxone (NARCAN) injection 0.1 mg(Linked Group 1) 0.1 mg, Intravenous, As needed, opioid reversal, Starting on Sun01/13/22 at 1022, PACU (only), [] Mix nalOXone (NARCAN) 0.4 mg (1ml) with 9 mL of Normal Saline to total 10 mL. [] Administer 0.1 mg (2.5ml) IV Push every 2 minutes until respiratory rate is 10 or greater. naloxone (NARCAN) injection 0.4 mg(Linked Group 1) 0.4 mg, Intravenous, As needed, opioid reversal, patient is pulseless, breathless, and unresponsive, Starting on Sun01/13/22 at 1022, PACU (only), Call a code first, then administer naloxone dose undiluted IV Push over 30 seconds. ondansetron (ZOFRAN) injection 4 mg 4 mg, Intravenous, Once as needed, nausea, vomiting, Starting on Sun01/13/22 at 1022, For 1 dose, PACU (only), Administer first as needed for nausea/vomiting, or as directed by anesthesia prochlorperazine (COMPAZINE) injection 5 mg 5 mg, Intravenous, Once as needed, nausea, Starting on Sun01/13/22 at 1022, For 1 dose, PACU (only), Administer if ondansetron (Zofran), promethazine (Phenergan), and Metocolopramide (Reglan) ineffective or not ordered, or as directed by anesthesia, as needed for nausea/vomiting sodium chloride (NS) 0.9 % irrigation solution (CANCELED) As needed, Starting on Sun01/13/22 at 0854, Intra-Procedure 0854 (Given - Provid er: Edgar Dhaliwal MD) thrombin (recombinant) 10,000 Units, gelatin adsorbable (GELFOAM) 100 cm 1 each topical (CANCELED) As needed, Starting on Sun01/13/22 at 0854, Intra-Procedure 0854 (Given - Provid er: Edgar Dhaliwal MD) Linked Groups Order Group 1: Notify Anesthesiologist (CANCELED) STAT, Until discontinued, Starting on Sun01/13/22 at 1023, Until Specified
Notify anesthesiologist immediately if respiratory rate less than or equal to 8 breaths per minute., PACU (only) And naloxone (NARCAN) injection 0.1 mgJump to med 0.1 mg, Intravenous, As needed, opioid reversal, Starting on Sun01/13/22 at 1022, PACU (only)
[] Mix nalOXone (NARCAN) 0.4 mg (1ml) with 9 mL of Normal Saline to total 10 mL. [] Administer 0.1 mg (2.5ml) IV Push every 2 minutes until respiratory rate is 10 or greater.
And naloxone (NARCAN) injection 0.4 mgJump to med 0.4 mg, Intravenous, As needed, opioid reversal, patient is pulseless, breathless, and unresponsive, Starting on Sun01/13/22 at 1022, PACU (only)
Call a code first, then administer naloxone dose undiluted IV Push over 30 seconds.
Scheduled Medication Order 07/30/2022 07/31/2022 08/01/2022 clindamycin (CLEOCIN) IVPB 900 mg (premix) (COMPLETED) 900 mg, Intravenous, at 100 mL/hr, Once, On Sun08/01/22 at 0830, For 1 dose, Pre-Procedure, Administer prior to incision., Indication (PRE PROCEDURE): pre procedure 09 (Given - Provid er: NANI Ashby)0941 (Stopped - Provider: NANI Ashby) lidocaine 10 mg/mL (1 %) injection 0.2 mL 0.2 mL, Intradermal, Once, On Sun08/01/22 at 0830, For 1 dose, Pre-Procedure, Around site prior to IV insertion 0830 (Due) Continuous Medication Order 07/30/2022 07/31/2022 08/01/2022 lactated Ringers infusion 100 mL/hr, Intravenous, Continuous, Starting on Sun08/01/22 at 1045, PACU (only) 1045 (Due) sodium chloride 0.9% (NS) 75 mL/hr, Intravenous, Continuous, Starting on Sun08/01/22 at 0830, Pre-Procedure 0840 (New Bag - Prov ider: Samantha Olmstead RN)0900 (Continued by Anesthesia - Provider: NANI Ashby)0928 (Paused - Provider: NANI Ashby - Comment: Switch to gravity)0929 (Restarted - Provider: NANI Ashby)1036 (Stopped - Provider: Eunice Domínguez RN) PRN Medication Order 07/30/2022 07/31/2022 08/01/2022 HYDROmorphone (DILAUDID) injection 0.5 mg 0.5 mg, Intravenous, Every 10 min PRN, Pain, Starting on Sun08/01/22 at 0951, For 6 doses, PACU (only), Give if fentanyl not effective or not ordered. Do not give more than 3 mg total. lidocaine 1% (PF) (XYLOCAINE-MPF) 20 mL, BUPivacaine (PF) (MARCAINE) 0.5 % (5 mg/mL) 30 mL injection (CANCELED) As needed, Starting on Sun08/01/22 at 0911, Intra-Procedure 0911 (Given - Provid er: Edgar Dhaliwal MD) meperidine (PF) (DEMEROL) injection 12.5 mg 12.5 mg, Intravenous, Every 5 min PRN, shivering, Starting on Sun08/01/22 at 0951, For 2 doses, PACU (only), Do not give more than 25 mg total., RESTRICTED to use in rigors OR pain management in patients with a documented opioid allergy. Please select this medication s indication. Rigors naloxone (NARCAN) injection 0.1 mg(Linked Group 1) 0.1 mg, Intravenous, As needed, opioid reversal, Starting on Sun08/01/22 at 0951, PACU (only), [] Mix nalOXone (NARCAN) 0.4 mg (1ml) with 9 mL of Normal Saline to total 10 mL. [] Administer 0.1 mg (2.5ml) IV Push every 2 minutes until respiratory rate is 10 or greater. naloxone (NARCAN) injection 0.4 mg(Linked Group 1) 0.4 mg, Intravenous, As needed, opioid reversal, patient is pulseless, breathless, and unresponsive, Starting on Sun08/01/22 at 0951, PACU (only), Call a code first, then administer naloxone dose undiluted IV Push over 30 seconds. ondansetron (ZOFRAN) injection 4 mg 4 mg, Intravenous, Once as needed, nausea, vomiting, Starting on Sun08/01/22 at 0951, For 1 dose, PACU (only), Administer first as needed for nausea/vomiting, or as directed by anesthesia prochlorperazine (COMPAZINE) injection 5 mg 5 mg, Intravenous, Once as needed, nausea, Starting on Sun08/01/22 at 0951, For 1 dose, PACU (only), Administer if ondansetron (Zofran), promethazine (Phenergan), and Metocolopramide (Reglan) ineffective or not ordered, or as directed by anesthesia, as needed for nausea/vomiting sodium chloride (PF) (NS) flush (CANCELED) As needed, Starting on Sun08/01/22 at 0911, Intra-Procedure 0911 (Given - Provid er: Edgar Dhaliwal MD) Linked Groups Order Group 1: Notify Anesthesiologist (CANCELED) STAT, Until discontinued, Starting on Sun08/01/22 at 0952, Until Specified
Notify anesthesiologist immediately if respiratory rate less than or equal to 8 breaths per minute., PACU (only) And naloxone (NARCAN) injection 0.1 mgJump to med 0.1 mg, Intravenous, As needed, opioid reversal, Starting on Sun08/01/22 at 0951, PACU (only)
[] Mix nalOXone (NARCAN) 0.4 mg (1ml) with 9 mL of Normal Saline to total 10 mL. [] Administer 0.1 mg (2.5ml) IV Push every 2 minutes until respiratory rate is 10 or greater.
And naloxone (NARCAN) injection 0.4 mgJump to med 0.4 mg, Intravenous, As needed, opioid reversal, patient is pulseless, breathless, and unresponsive, Starting on Sun08/01/22 at 0951, PACU (only)
Call a code first, then administer naloxone dose undiluted IV Push over 30 seconds.
Scheduled Medication Order 08/23/2022 08/24/2022 08/25/2022 clindamycin (CLEOCIN) IVPB 900 mg (premix) (COMPLETED) 900 mg, Intravenous, at 100 mL/hr, Once, On Christina 08/24/22 at 1015, For 1 dose, Pre-Procedure, Administer prior to incision., Indication (PRE PROCEDURE): pre procedure 1129 (Given - Provider: Mike Fitzgerald CRNA) clindamycin (CLEOCIN) IVPB 900 mg (premix) (COMPLETED) 900 mg, Intravenous, at 100 mL/hr, Every 8 hours, First dose on Christina 08/24/22 at 1900, For 2 doses, Starting 8 hours after pre-procedure dose x 2 doses., Indication (POST PROCEDURE): Neurology 2025 (New Bag - Provider: Fang Cannon RN)2055 (Stopped - Provider: Fagn Cannon RN) 040 (New Bag - Provider: Dave Colin RN)0431 (Stopped - Provider: Caroline Barlow, RN) cyclobenzaprine (FLEXERIL) tablet 10 mg 10 mg, Oral, Every 8 hours, First dose on Christina 08/24/22 at 1600 1520 (Given - Provider: Twin Akers RN)2310 (Given - Provider: Fang Cannon RN) 0827 (Given - Provider: Caroline Barlow, RN) senna-docusate (SENNA-S) 8.6-50 mg per tablet 2 tablet 2 tablet, Oral, 2 times daily, First dose on Christina 08/24/22 at 2100, [] Hold for loose stools. Do Not Crush or Chew if administering orally due to bitter taste. May be crushed if given via tube. 2022 (Given - Provider: Fang Cannon, DENEEN) 0827 (Given - Provider: Caroline Barlow, RN) Continuous Medication Order 08/23/2022 08/24/2022 08/25/2022 lactated Ringers infusion 100 mL/hr, Intravenous, Continuous, Starting on Christina 08/24/22 at 1345, PACU (only) 1445 (New Bag - Provider: Twin Akers, RN) 0546 (New Bag - Provider: Fang Cannon, DENEEN)0547 (Rate/Dose Verify - Provider: Caroline Barlow, DENEEN)0838 (Stopped - Provider: Caroline Barlow, DENEEN)1200 (Stopped - Provider: Caroline Barlow, RN) sodium chloride 0.9% (NS) 75 mL/hr, Intravenous, Continuous, Starting on Christina 08/24/22 at 1015, Pre-Procedure 1011 (New Bag - Provider: Lissett Art RN)1110 (Anesthesia Volume Adjustment - Provider: Mike Fitzgerald CRNA)1423 (New Bag - Provider: Estefania Malhotra RN) 1200 (Stopped - Provider: Caroline Barlow, DENEEN) sodium chloride 0.9% (NS) 75 mL/hr, Intravenous, Continuous, Starting on Christina 08/24/22 at 1545 1447 (New Bag - Provider: Twin Akers RN)1450 (Rate/Dose Change - Provider: Fang Cannon, DENEEN)2026 (Stopped - Provider: Fang Cannon, DENEEN) 1200 (Stopped - Provider: Caroline Barlow, RN) PRN Medication Order 08/23/2022 08/24/2022 08/25/2022 acetaminophen (TYLENOL) tablet 650 mg 650 mg, Oral, Every 4 hours PRN, mild pain, fever 100.4 F or greater, Starting on Christina 08/24/22 at 1445 diphenhydrAMINE (BENADRYL) tablet 25 mg 25 mg, Oral, Every 4 hours PRN, itching, Starting on Christina 08/24/22 at 1445 fentaNYL (SUBLIMAZE) inj syringe 25 mcg (CANCELED) 25 mcg, Intravenous, Every 5 min PRN, Pain, Starting on Christina 08/24/22 at 1257, For 4 doses, PACU (only), [] Do not give more than 100 mcg while in PACU. 1333 (Given - Provider: Estefania Malhotra RN)1342 (Given - Provider: Estefania Malhotra RN) HYDROmorphone (DILAUDID) injection 0.25-0.5 mg 0.25-0.5 mg, Intravenous, Every 3 hours PRN, moderate to severe pain, Starting on Christina 08/24/22 at 1445, [] Initiate with 0.25 mg IV every 3 hours prn moderate to severe pain. [] For unrelieved pain, may repeat 0.25 mg IV dose within 30 minutes of initial dose. [] If pain is RELIEVED after repeat dose, change to 0.5 mg IV every 3 hours prn moderate to severe pain. [] If pain is UNrelieved after repeat dose, or patient requires dose reduction, call physician. [] May use IV for breakthrough pain or if unable to tolerate oral route. 1520 (Given - Provider: Twin Akers RN)1844 (Given - Provider: Twin Akers RN) HYDROmorphone (DILAUDID) injection 0.5 mg (CANCELED) 0.5 mg, Intravenous, Every 10 min PRN, Pain, Starting on Christina 08/24/22 at 1257, For 6 doses, PACU (only), Give if fentanyl not effective or not ordered. Do not give more than 3 mg total. 1358 (Given - Provider: Estefania Malhotra RN) lidocaine 1% (PF) (XYLOCAINE-MPF) 20 mL, BUPivacaine (PF) (MARCAINE) 0.5 % (5 mg/mL) 20 mL injection (CANCELED) As needed, Starting on Christina 08/24/22 at 1201, Intra-Procedure 1201 (Given - Provider: Edgar Dhaliwal MD) magnesium hydroxide (MOM) 400 mg/5 mL suspension 2,400 mg 2,400 mg (30 mL), Oral, Daily PRN, constipation, constipation, Starting on Christina 08/24/22 at 1445 naloxone (NARCAN) injection 0.1 mg(Linked Group 1) 0.1 mg, Intravenous, As needed, opioid reversal, For respiratory rate less than or equal to 8 per minute., Starting on Christina 08/24/22 at 1445, Mix nalOXone (NARCAN) 0.4 mg (1mL) with 9 mL of Normal Saline to total 10 mL. Administer 0.1 mg (2.5mL) IV Push every 2 minutes until respiratory rate is 10 or greater. naloxone (NARCAN) injection 0.4 mg(Linked Group 1) 0.4 mg, Intravenous, As needed, opioid reversal, patient is pulseless, breathless, and unresponsive, Starting on Christina 08/24/22 at 1445, Call a code first, then administer naloxone dose undiluted IV Push over 30 seconds. ondansetron (ZOFRAN) injection 4 mg 4 mg, Intravenous, Every 6 hours PRN, nausea, vomiting, Starting on Christina 08/24/22 at 1445 oxyCODONE-acetaminophen (PERCOCET) 5-325 mg per tablet 1-2 tablet 1-2 tablet, Oral, Every 4 hours PRN, moderate to severe pain, Starting on Christina 08/24/22 at 1445, [] Initiate with 1 tablet oral every 4 hours prn moderate to severe pain. [] For unrelieved pain, may repeat one tablet oral dose within 60 minutes of initial dose. [] If pain is RELIEVED after repeat dose, change to two tablets of 5/325 mg oral every 4 hours prn moderate to severe pain. [] If pain is UNrelieved after repeat dose, or patient requires dose reduction, call physician. 1727 (Given - Provider: Twin Akers RN)2200 (Given - Provider: Fang Cannon RN) 0207 (Given - Provider: Fang Cannon, DENEEN)0545 (Given - Provider: Fang Cannon RN) sodium chloride (NS) 0.9 % irrigation solution (CANCELED) As needed, Starting on Christina 08/24/22 at 1235, Intra-Procedure 1235 (Given - Provider: Edgar Dhaliwal MD) thrombin (recombinant) 10,000 Units, gelatin adsorbable (GELFOAM) 100 cm 1 each topical (CANCELED) As needed, Starting on Christina 08/24/22 at 1202, Intra-Procedure 1202 (Given - Provider: Edgar Dhaliwal MD - Comment: Used PRN by the surgeon) traZODone (DESYREL) tablet 50 mg 50 mg, Oral, Nightly PRN, sleep, Starting on Christina 08/24/22 at 1445, [] May repeat once in 30 minutes if still awake. Linked Groups Order Group 1: naloxone (NARCAN) injection 0.1 mgJump to med 0.1 mg, Intravenous, As needed, opioid reversal, For respiratory rate less than or equal to 8 per minute., Starting on Christina 08/24/22 at 1445
Mix nalOXone (NARCAN) 0.4 mg (1mL) with 9 mL of Normal Saline to total 10 mL. Administer 0.1 mg (2.5mL) IV Push every 2 minutes until respiratory rate is 10 or greater.
And Notify physician (CANCELED) STAT, Until discontinued, Starting on Christina 08/24/22 at 1446, Until Specified
Respiratory rate less than: 8
For respiratory rate less than or equal to 8, notify physician and/or appropriate staff for additional orders. And naloxone (NARCAN) injection 0.4 mgJump to med 0.4 mg, Intravenous, As needed, opioid reversal, patient is pulseless, breathless, and unresponsive, Starting on Christina 08/24/22 at 1445
Call a code first, then administer naloxone dose undiluted IV Push over 30 seconds.
INFORMATION SOURCE (unrecogn ized section and content) DATE CREATED AUTHOR 06/10/2022 [facility] DATE CREATED AUTHOR AUTHOR'S ORGANIZ ATION 12/22/2023 [facility] EPIC DATE CREATED AUTHOR AUTHOR'S ORGANIZ ATION 03/15/2024 [facility] DATE CREATED AUTHOR AUTHOR'S ORGANIZ ATION [facility] DATE CREATED AUTHOR AUTHOR'S ORGANIZ ATION 05/11/2024 [facility] Goals (unrecognized section and content) Goals may be documented in a n alternate section FOR RECORDS PERTAINING TO PATIENTS WHO ARE OR HAVE BEEN ENROLLED IN A CHEMICAL DEPENDENCY/SUBSTANCEABUSE PROGRAM, SOME INFORMATION MAY BE OMITTED. This clinical summary was aggregated from multiple sources. Caution should be exercised in using it in the provision of clinical care. This summary normalizes information from multiple sources, and as a consequence, information in this document may materially change the coding, format and clinical context of patient data. In addition, data may be omitted in some cases. CLINICAL DECISIONS SHOULD BE BASED ON THE PRIMARY CLINICAL RECORDS. [facility] provides no warranty or guarantee of the accuracy or completeness of information in this document.
== END 2024-05-28 09:06 | disposition home or self-care (01) ==
LOC: LAB 05-29 09:05
PROVIDERS: PCP Family Medicine; Visit Provider Family Medicine
DX: R63.5 Abnormal weight gain (principal); I50.22 Chronic systolic (congestive) heart failure; R31.9 Hematuria, unspecified; I11.0 Hypertensive heart disease with heart failure
CPT/HCPCS: 36415; 80053; 80061; 84443; 85025

== ENCOUNTER 2024-05-29 12:58 | Outpatient (REF) | payer MEDICARE, SELFPAY ==
[2024-05-29 13:56] LABS: Creatinine Urine Random 14.27 mg/dL (20.00-300.00); Microalbumin Urine Random <1.3 mg/dL (<=30.0)
[2024-05-29 14:05] LABS: Bilirubin Urine NEGATIVE (NEGATIVE); Blood Urine SMALL (NEGATIVE); Clarity Urine CLEAR (CLEAR); Color Urine LT. YELLOW (YELLOW); Glucose Urine UA NEGATIVE (NEGATIVE); Ketones Urine NEGATIVE (NEGATIVE); Leukocyte Esterase Urine NEGATIVE (NEGATIVE); Nitrite Urine NEGATIVE (NEGATIVE); Protein Urine NEGATIVE (NEG/TRACE); Specific Gravity Urine <=1.005 (1.005-1.025); Urobilinogen Urine 0.2 EU/dL (0.2-1.0)
== END 2024-05-29 12:59 | disposition home or self-care (01) ==
LOC: LAB 12:58
PROVIDERS: PCP Family Medicine; Visit Provider Family Medicine
DX: R63.5 Abnormal weight gain (principal); I50.22 Chronic systolic (congestive) heart failure; R31.9 Hematuria, unspecified; I11.0 Hypertensive heart disease with heart failure
CPT/HCPCS: 81003; 82043; 82570

== ENCOUNTER 2024-06-27 13:33 | Outpatient (OUT) | payer MEDICARE, SELFPAY ==
--- NOTE | 2024-06-27 13:36 | CT_ITS ---
The [address] [address] Patient Name: BORIS LIU MRN: [id number] date: 1965 Sex: F Assigned Patient Location: CT Current Patient Location: CT Accession/Order Number: [id number] Exam Date: 06/27/2024 15:11 Report Date: 06/27/2024 15:14 At the request of: BILL GOULD Procedure: CT abdomen pelvis wo/w con CT ABDOMEN AND PELVIS WITH AND WITHOUT INTRAVENOUS CONTRAST: CLINICAL HISTORY: Hematuria for 5 weeks. Frequent urination. COMPARISON: None TECHNIQUE: Spiral images were obtained through the abdomen and pelvis before and after the administration of intravenous contrast. This CT exam was performed using one or more following dose reduction techniques: Automated exposure control, adjustment of the mA and/or kV according to patient size, or use of iterative reconstruction technique. FINDINGS: Lung Bases: [Mild lung scarring.] Organs:Noncontrast images of the kidneys demonstrate no urinary tract calculus. Postcontrast images demonstrate no enhancing renal or collecting system mass. Opacified ureters appear grossly unremarkable. Urinary bladder is grossly unremarkable. Liver gallbladder portal vein spleen pancreas and adrenal glands all appear unremarkable. Aorta appears normal in caliber.[ GI: Stomach is grossly unremarkable. Small bowel appears nondilated. Appendix is normal. No acute colonic abnormality.[ Pelvis:[Uterus is grossly unremarkable. No adnexal mass.] Peritoneum/Retroperitoneum:No free air or free fluid or lymphadenopathy. Abd wall/Bones:No acute findings. Osseous structures demonstrate degenerative change.[ CT/CT abdomen pelvis wo/w con IMPRESSION: No urinary tract abnormality identified to explain the patient's hematuria. No acute intra-abdominal process. Impression dictated by: Chay Ash Jr., D.O. 06/27/2024 3:14 PM Dictation Location: [place] [address] Electronically authenticated by: [id number] Y Date: 06/27/2024 15:14
== END 2024-06-27 13:34 | disposition home or self-care (01) ==
LOC: CT 13:34
PROVIDERS: PCP Family Medicine; Visit Provider Physician Assistant
DX: R31.21 Asymptomatic microscopic hematuria (principal); R33.9 Retention of urine, unspecified; R39.9 Unspecified symptoms and signs involving the genitourinary system
CPT/HCPCS: 74178; Q9967

== ENCOUNTER 2024-07-21 14:29 | Outpatient (OUT) | payer MEDICARE, SELFPAY ==
--- NOTE | 2024-07-21 14:35 | XR_ITS ---
The [address] [address] Patient Name: BORIS LIU MRN: [id number] date: 1965 Sex: F Assigned Patient Location: [facility] Current Patient Location: [facility] Accession/Order Number: [id number] Exam Date: 07/21/2024 15:14 Report Date: 07/21/2024 15:19 At the request of: CLAIR DALH MD Procedure: XR chest 2V PA AND LATERAL CHEST: CLINICAL HISTORY: Cough for the past 1 to 2 weeks. Bronchitis COMPARISON: 08/03/2021 There is no developing consolidation, effusion or pneumothorax. The cardiac, hilar and mediastinal silhouettes are within normal limits. There is no vascular congestion. The visualized bony thorax is intact. Patient has a new dorsal stimulator. XR/XR chest 2V IMPRESSION: NO ACUTE CARDIOPULMONARY ABNORMALITY. Impression dictated by: Nehal Arizmendi M.D. 07/21/2024 3:19 PM Dictation Location: [place] [address] Electronically authenticated by: [id number] Y Date: 07/21/2024 15:19
== END 2024-07-21 14:30 | disposition home or self-care (01) ==
LOC: RAD 14:31
PROVIDERS: PCP Family Medicine; Visit Provider Family Medicine
DX: J40 Bronchitis, not specified as acute or chronic (principal)
CPT/HCPCS: 71046

== ENCOUNTER 2024-12-01 11:04 | Outpatient (OUT) | payer MEDICARE, SELFPAY ==
--- OUTSIDE RECORDS SUMMARY | 2024-10-29 09:17 | XMS_ITS ---
Author Name Auto Generated Organization OHIP Support Name Relationship Address Phone STARR BRENNAN Next of Kin Unknown [phone] MARKOS BRENNAN Next of Kin [address] [place] [address] Unavailable ARISTEO BRENNAN Next of Kin [address] [place] [address] Unavailable STARR BRENNAN Next of Kin Unknown [phone] SAMEER BRENNANBRANDY Next of Kin [address] [place] [address] Unavailable ARISTEO WILSON Next of Kin [address] [place] [address] Unavailable STARR BRENNAN Next of Kin Unknown [phone] MARKOS BRENNAN Next of Kin [address] [facility] [place] [address] Unavailable ARISTEO WILSON Next of Kin [address] [place] [address] Unavailable STARR BRENNAN Next of Kin Unknown [phone] SAMEER BRENNANBRANDY Next of Kin [address] [facility] [place] [address] Unavailable ALEXAARISTEO Next of Kin [address] [place] [address] Unavailable ALEXA STARR Next of Kin Unknown [phone] SAMEER BRENNANER Next of Kin [address] [place] [address] [place] [address] Unavailable ALEXA ARISTEO Next of Kin [address] [place] [address] Unavailable STARR BRENNAN Next of Kin Unknown [phone] SAMEER BRENNANER Next of Kin [address] [place] [address] [place] [address] Unavailable ALEXA, ARISTEO Next of Kin [address] [place] [address] Unavailable ALEXASTARR Next of Kin Unknown [phone] MARKOS BRENNAN Next of Kin [address] [facility] [place] [address] Unavailable ARISTEO BRENNAN Next of Kin [address] [place] [address] Unavailable STARR BRENNAN Next of Kin Unknown [phone] MARKOS BRENNAN Next of Kin [address] [facility] [place] [address] Unavailable ARISTEO BRENNAN Next of Kin [address] [place] [address] Unavailable STARR BRENNAN Next of Kin Unknown [phone] MARKOS BRENNAN Next of Kin [address] [facility] [place] [address] Unavailable ARISTEO BRENNAN Next of Kin [address] [place] [address] Unavailable Care Team Providers Care Air Battle Manager Name Role Phone JORADN MARIA Attending Unavailable Estefani Dahl Attending Unavailable Dahl, Estefani E Admitting Unavailable DAHL, ESTEFANI E Primary Care Unavailable CAROLINE CARRION Attending Unavailable DAHL, ESTEFANI E Primary Care Unavailable VIJAY SANDOVAL Attending Unavailable DAHL, ESTEFANI E Primary Care Unavailable VIJAY SANDOVAL Admitting Unavailable VIJAY SANDOVAL Referring Unavailable DAHL, ESTEFANI E Primary Care Unavailable EDNA HINSON Attending Unavailable NABILA ESTEFANI E Primary Care Unavailable EDNA HINSON Attending Unavailable DAHL, ESTEFANI E Primary Care Unavailable CAROLINE CARRION Attending Unavailable CAROLINE CARRION Referring Unavailable DAHL, ESTEFANI E Primary Care Unavailable VIJAY SANDOVAL Attending Unavailable VIJAY SANDOVAL Referring Unavailable VIJAY SANDOVAL Attending Unavailable VIJAY SANDOVAL Referring Unavailable DAHL, ESTEFANI E Primary Care Unavailable VIJAY SANDOVAL Attending Unavailable VIJAY SANDOVAL Referring Unavailable DAHL, ESTEFANI E Primary Care Unavailable Justin MILLER Attending Unavailable BILL HARTLEY Attending Unavailable BILL HARTLEY Admitting Unavailable BILL HARTLEY Attending Unavailable PROBLEMS DATE TYPE CONDITION / CODE ATTENDING STATUS [facility] 10/06/2024 Admitting diagnosis Syncope and collapse / R55(ICD-10) VIJAY SANDOVAL [facility] 10/06/2024 Admitting diagnosis Other chest pain / R07.89(ICD-10) VIJAY SANDOVALBan [facility] 10/06/2024 Admitting diagnosis Chronic systolic (congestive) heart failure / I50.22(ICD-10) YOEL SANDOVALGIO TahminaBan [facility] 10/06/2024 Admitting diagnosis Palpitations / R00.2(ICD-10) ARMAND VIJAY [facility] 10/06/2024 Admitting diagnosis Other forms of dyspnea / R06.09(ICD-10) SANDOVALVIJAY NEGRETE [facility] 05/08/2024 Unknown Dysuria / R30.0(ICD-10) Estefani Dahl [facility] 03/07/2024 Admitting diagnosis Presence of other specified functional implants / Z96.89(ICD-10) CAROLINE CARRION [facility] 03/07/2024 Admitting diagnosis Low back pain, unspecified / M54.50(ICD-10) CAROLINE CARRION [facility] PROCEDURES No Procedure Records Found RESULTS ECHOCARDIOGRAM COMPLETE Observed: 2024 10:21 AM Status: F Source: [facility] Summary 1. Enlarged LV chamber size. Normal wall thickness. Systolic function is moderately reduced. There is global hypokinesis. Ejection fraction by biplane method of discs and 3D of 36%. 2. The left ventricular diastolic function is grade II diastolic dysfunction, consistent with elevated left atrial pressure. 3. Right ventricular size and systolic function are normal. 4. No significant valvular abnormalities. 5. There is no pulmonary hypertension, estimated right ventricle systolic pressure is 30 mmHg. Ordering Physician: Vijay Sandoval MD Referring Physician: Vijay Sandoval MD Entry Level Marketing Assistant: Nicolasa Duval RDCS, RVS Attending Physician: Vijay Sandoval MD Patient Info Site Location: Exam Location: [facility] Name: Verito Brennan Age: 59 years : 1965 Gender: Female Ht: 178 cm Wt: 108 kg BSA: 2.35 m2 HR: 78 bpm BP: 134 / 82 mmHg Heart Rhythm: Sinus Rhythm Technical Quality: Fair Exam Date: 10/29/2024 8:11 AM Patient Status: OUTPATIENT Exam Type: ECHOCARDIOGRAM COMPLETE Study Info Indications R07.89 - Other chest pain I50.22 - Chronic systolic (congestive) heart failure [id number] BMI: 34.09 kg/m2 History/Risk Factors Hypertension: Yes Congestive Heart Failure (CHF): Hx CHF Tobacco Use: Current - Every Day Procedure(s): Complete two-dimensional, color flow and Doppler transthoracic echocardiogram is performed. Left Ventricle Enlarged LV chamber size. Normal wall thickness. Systolic function is moderately reduced. There is global hypokinesis. Ejection fraction by biplane method of discs and 3D of 36%. Abnormal LV global longitudinal strain, -10.6%. The left ventricular diastolic function is grade II diastolic dysfunction, consistent with elevated left atrial pressure. Right Ventricle Right ventricular size and systolic function are normal. Left Atria Left atrial chamber is mildly enlarged with a left atrial volume index of 35 ml/m2 by BP MOD. Right Atria Right atrial chamber dimension is normal. Aortic Valve The aortic valve is trileaflet. There is mild aortic valve sclerosis. There is no aortic valve stenosis. There is no aortic valve regurgitation. Pulmonic Valve The pulmonic valve is not well visualized. There is no pulmonic valve stenosis. There is trace pulmonic regurgitation. Mitral Valve The mitral valve has normal leaflets. There is no mitral valve stenosis. There is mild mitral valve regurgitation. Tricuspid Valve The tricuspid valve leaflets are normal. There is no significant tricuspid valve stenosis. There is trace tricuspid valve regurgitation. There is no pulmonary hypertension, estimated right ventricle systolic pressure is 30 mmHg. Pericardium/Pleural There is no pericardial effusion. Inferior Vena Cava Normal inferior vena cava with >50% collapse upon inspiration consistent with normal right atrial pressure. Aorta The aortic measurements are indexed to age and body surface area. The aortic root is dilated measuring 3.4 cm with an index of 1.4 cm/m2. The proximal ascending aorta is normal measuring 2.8 cm with an index of 1.2 cm/m2. Left Ventricular Outflow Tract Name Value Normal LVOT 2D LVOT Diameter 2.2 cm LVOT Ejection Time 263 ms LVOT Doppler LVOT Peak Velocity 0.9 m/s LVOT Peak Gradient 3 mmHg LVOT Mean Gradient 2 mmHg LVOT VTI 18 cm LVOT VTI/AV VTI Ratio 0.8 LVOT Stroke Volume 67 ml LVOT Stroke Index 28.36 ml/m2 Pulmonic Valve Name Value Normal RVOT Doppler RVOT Peak Velocity 59 cm/s RVOT Peak Gradient 1 mmHg RVOT Mean Gradient 1 mmHg RVOT VTI 10 cm PV Doppler PV Peak Velocity 0.89 m/s PV Peak Gradient 3 mmHg PV Mean Gradient 2 mmHg PV VTI 15 cm Mitral Valve Name Value Normal MV Doppler MV Peak Velocity 1.09 m/s MV Peak Gradient 5 mmHg MV Mean Gradient 2 mmHg MV VTI 18 cm MV Decel [place] 487 cm/s2 MV PHT 53 ms MV Area (PHT) 4.1 cm2 4.0-5.0 MV Area (Cont Eq VTI) 3.6 cm2 MV Area Index (Cont Eq VTI) 1.55 cm2/m2 MV DVI 1.01 MV Diastolic Function MV E Peak Velocity 0.89 m/s MV A Peak Velocity 0.73 m/s MV E/A 1.2 MV Decel Time 183 ms MV Annular TDI MV Septal e' Velocity 3.3 cm/s MV E/e' (Septal) 27.1 MV Lateral e' Velocity 7.3 cm/s >=9.5 MV E/e' (Lateral) 12.2 MV e' Average 5.31 cm/s MV E/e' (Average) 19.6 <=13.5 Tricuspid Valve Name Value Normal TV Regurgitation Doppler TR Peak Velocity 2.58 m/s <=2.80 TR Peak Gradient 27 mmHg Estimated PAP/RSVP RA Pressure 3 mmHg <=5 PA Systolic Pressure 30 mmHg <=36 RV Systolic Pressure 30 mmHg <36 TV Annular TDI RV s' Velocity 0.1 m/s >=0.1 Aorta Name Value Normal Ascending Aorta Ao Root Diameter (2D) 3.4 cm 2.7-3.3 Ao Root Diam Index (2D) 1.4 cm/m2 1.6-2.0 Prox Asc Ao Diameter 2.8 cm 2.3-3.1 Prox Asc Ao Diameter Index 1.2 cm/m2 1.3-1.9 Aortic Valve Name Value Normal AV Doppler AV Peak Velocity 1.1 m/s AV Peak Gradient 5 mmHg AV Mean Gradient 3 mmHg AV VTI 23 cm AV Area (Cont Eq VTI) 2.9 cm2 AV Area Index (Cont Eq VTI) 1 cm2/m2 AV Area (Cont Eq Viral) 3.0 cm2 AV Area Index (Cont Eq Viral) 1 cm2/m2 LVOT Vmax/AV Vmax 0.81 LVOT VTI/AV VTI Ratio 0.8 AV Regurgitation 2D LVOT Area 3.7 cm2 Ventricles Name Value Normal LV Dimensions 2D/MM IVS Diastolic Thickness (2D) 0.9 cm 0.6-0.9 LVID Diastole (2D) 5.2 cm 3.8-5.2 LVIW Diastolic Thickness (2D) 1.0 cm 0.6-0.9 LVID Systole (2D) 4.2 cm 2.2-3.5 LVOT Diameter 2.2 cm LV Mass (2D Cubed) 181.33 g 67.00-162.00 LV Mass Index (2D Cubed) 77 g/m2 43-95 Relative Wall Thickness (2D) 0.40 <=0.42 LV Fractional Shortening/Ejection Fraction 2D/MM LV Fractional Shortening (2D) 18 % 27-45 LV EF (2D Teichholz) 38 % LV Diastolic Volume (4C MOD) 153 ml LV Systolic Volume (4C MOD) 100 ml LV EF (4C MOD) 34 % LV Diastolic Volume (2C MOD) 174 ml LV Systolic Volume (2C MOD) 108 ml LV EF (2C MOD) 38 % LV Diastolic Volume (BP MOD) 178 ml 46-106 LV Diastolic Volume Index (BP MOD) 76 ml/m2 29-61 LV Systolic Volume (BP MOD) 114 ml 14-42 LV Systolic Volume Index (BP MOD) 48 ml/m2 8-24 LV EF (BP MOD) 36 % 54-74 LV Diastolic Length (4C) 8.2 cm LV Systolic Length (4C) 7.9 cm LV Stroke Volume (4C MOD) 52 ml LV Stroke Index (4C MOD) 22.32 ml/m2 RV Dimensions 2D/MM RV Diastolic Length (4C) 7.4 cm 5.9-8.3 RV Basal Diastolic Dimension 3.5 cm 2.5-4.1 RV Mid-Cavity Diastolic Dimension 2.6 cm 1.9-3.5 TAPSE 2.5 cm >=1.7 RV Systolic Function RV s' Velocity 0.12 m/s >=0.10 Diastology TR Peak Velocity 2.58 m/s <=2.80 MV Septal e' Velocity 3.3 cm/s LA Volume Index (BP A-L) 38 ml/m2 16-34 LA Volume Index (2C MOD) 44 ml/m2 LA Volume Index (4C MOD) 26 ml/m2 LA Volume Index (BP MOD) 35 ml/m2 16-34 MV Lateral e' Velocity 7.3 cm/s >=9.5 MV E/e' (Average) 19.6 <=13.5 MV E/A 1.2 MV E/e' (Lateral) 12.2 MV E/e' (Septal) 27.1 MV e' Average 5.31 cm/s Atria Name Value Normal LA Dimensions LA [place] Width (4C) 5.0 cm LA Area (2C) 26.9 cm2 LA Length (2C) 5.5 cm LA Volume (4C MOD) 61 ml LA Volume (2C MOD) 103 ml LA Volume (4C A-L) 65 ml LA Volume (2C A-L) 111 ml LA Volume (BP A-L) 90 ml LA Volume Index (BP A-L) 38 ml/m2 16-34 LA Volume (BP MOD) 83 ml LA Volume Index (BP MOD) 35 ml/m2 16-34 RA Dimensions RA Systolic [place] Length (4C) 4.7 cm 2.2-2.8 RA Area (4C) 16.2 cm2 <=18.0 RA Area (4C) Index 7 cm2/m2 RA ESV (4C MOD) 45 ml 15-27 RA ESV Index (4C MOD) 19 ml/m2 15-27 EchoPAC Name Value Normal RA LV Global Longitudinal Strain (RA) -10.6 % LV Global Longitudinal Strain (2C RA) -11.8 % LV Global Longitudinal Strain (4C RA) -9.8 % LV Global Longitudinal Strain (APLAX RA) -10.1 % LV Apical Anterior Longitudinal Strain (RA) -7.7 % LV Apical Anteroseptal Longitudinal Strain (RA) -3.8 % LV Apical Inferior Longitudinal Strain (RA) -8.5 % LV Apical Lateral Longitudinal Strain (RA) -13.6 % LV Apical Posterior Longitudinal Strain (RA) -5.3 % LV Apical Septal Longitudinal Strain (RA) -12.2 % AV Closure (RA) 231 ms LV Basal Anterior Longitudinal Strain (RA) -2.3 % LV Basal Anteroseptal Longitudinal Strain (RA) -1.1 % LV Basal Inferior Longitudinal Strain (RA) -1.3 % LV Basal Anterolateral Longitudinal Strain (RA) 5.5 % LV Basal Inferolateral Longitudinal Strain (RA) -7.5 % LV Basal Inferoseptal Longitudinal Strain (RA) 1.7 % LV Mid Anterior Longitudinal Strain (RA) -2.4 % LV Mid Anteroseptal Longitudinal Strain (RA) -1.7 % LV Mid Inferior Longitudinal Strain (RA) -2.5 % LV Mid Anterolateral Longitudinal Strain (RA) 3.7 % LV Mid Inferolateral Longitudinal Strain (RA) -7.4 % LV Mid Inferoseptal Longitudinal Strain (RA) -3.9 % 4D Auto LVQ LV CO (4D) 5.2 l/min LV EF (4D) 36 % LV End Diastolic Volume (4D) 197 ml LV End Systolic Volume (4D) 126 ml LV SV (4D) 70 ml Report Signatures Finalized by Vijay Sandoval MD on 10/29/2024 10:[address] CCTA HEART (GOLD MINER BLASTING READ) Observed: 10/29/2024 10:02 AM Status: F Source: [facility] Coronary Computed Angiograph y Report Patient Name: Verito Brennan Age: 59 y.o. Requesting Physician: Interpreting Spa Concierge: Vijay Sandoval MD Primary Care Physician: Estefani Dahl Clinical Indication: Chest pain Gender: female Race/Ethnicity: White Cardiovascular risk factors: Hypertension Prior Imaging: C, echo Procedure: Computed tomographic angiography with contrast, including 3D image post-processing (including evaluation of cardiac structures and morphology, assessment of cardiac function and evaluation of venous structures, if performed) BMI: 34.1 kg/msq HR: 66 BPM Acquisition mode: Prospective, ECG triggered Complications: None Image Quality: Good, No significant artifacts. Scanner: Imperva DLP 303.67 mGy 98ml [id number]. 0.4mg SL nitroglycerin administered prior to scan. Radiation dose reduction was achieved by using automated exposure control and or adjustments of mA and/or kV according to patient size and/or use of iterative reconstruction techniques. Coronary Calcium / Agatston scoring: LM: 0 RCA: 1 LAD: 0 LCX: 0 Total: 1 Percentile age/gender cohort: 64th percentile for age, gender and race/ethnicity-matched group per MEI database. Coronary Angiography: Left Main: The left main is a normal vessel with a normal take off from the left coronary cusp that bifurcates to an LAD and circumflex artery. There is no plaque or stenosis. Left anterior descending artery: The LAD is patent with no evidence of plaque or stenosis. The LAD gives off 1 diagonal branches. No significant plaque or stenosis noted in the diagonal. Left circumflex artery: The LCx is non dominant and patent with no evidence of plaque or stenosis. The LCx gives off 1 obtuse marginal branches. Right coronary artery: The RCA is dominant with mild calcified nonobstructive plaqued (1-24% stenosis) in the distal RCA. The RCA terminates as a PDA and right posteriorlateral branch without evidence of plaque or stenosis. Cardiac Morphology: Left atrium: Left atrial size is enlarged Left Ventricle: The ventricular cavity size is enlarged. There is no abnormal filling defects. Pulmonary Veins: Normal pulmonary venous drainage. Pericardium: Normal thickness with no significant effusion or calcification present. Cardiac valves: There is no thickening or calcification in the aortic and mitral valves. Aorta: Normal caliber of the portion of the thoracic aorta imaged. Aortic calcification noted PLEASE SEE SEPARATE RADIOLOGY REPORT FOR THE NONCARDIAC FINDINGS IMPRESSION: 1. Total calcium score: 1 2. (No) evidence of significant coronary stenosis by Coronary CT Angiography CAD RADS (score): 1, P1 - minimal nonobstructive CAD RECOMMENDATIONS: Consider nonatherosclerotic causes of chest pain. Consider risk factor modification to preventative pharmacotherapy Dictated by: ARDEN SANDOVAL on SunOct 29, 2024 12:27:13 PM EDT Transcribed by: ARDEN SANDOVAL on SunOct 29, 2024 12:27:13 PM EDT Finalized by: ARDEN SANDOVAL on SunOct 29, 2024 12:27:[address] CCTA HEART WITH AND WITHOUT CONTRAST Observed: 10/29/2024 9:17 AM Status: F Source: [facility] Order Comment: Injury/Trauma or Illness?:Illness/Other How long have you had these symptoms (acute/chronic)?:Chronic Reason for exam?:Chest pain, supplemental read Type of Exam?:Subsequent/Follow-up Additional signs and symptoms?:. EXAMINATION: CCTA OF THE HEART WITH AND WITHOUT CONTRAST, CORONARY ARTERY CT ANGIOGRAPHY, SUPPLEMENTAL READ COMPARISON: 01/03/2022. HISTORY: Dx: R07.89 (Chest pressure) CONTRAST: IOPAMIDOL 370 MG IODINE/ML (76 %) INTRAVENOUS SOLUTION - 98 mL, TECHNIQUE: A spiral acquisition through the heart was obtained both with and without IV contrast. Axial images were displayed for review. Dose reduction techniques were achieved by using automated exposure control and/or adjustment of mA and/or kV according to patient size and/or use of iterative reconstruction technique. Please see cardiology report for details regarding calcium scoring and coronary angiography. FINDINGS: Minimal bilateral dependent atelectasis. Mild pulmonary scarring lingular segment. No enlarged lymph nodes within the imaged volume. IMPRESSION: 1. Pulmonary scarring lingular segment. Minimal bilateral dependent atelectasis. 2. Please see Cardiology report for further details regarding cardiovascular structures. [facility]/ Workstation ID: [id number] Dictated by: SAMANTHA HENNING on SunOct 29, 2024 11:42:10 AM EDT Transcribed by: ANTONY HANSON on SunOct 29, 2024 12:33:19 PM EDT Finalized by: SAMANTHA HENNING on SunOct 29, 2024 1:09:24 PM EDT PROGRESS Observed: 10/06/2024 11:01 AM Status: COMPLETED Source: [facility] Cardiology Clinic Visit Heart & Vascular [facility] 10/06/2024 Vijay Sandoval MD [address] [facility] [id number] Patient: Verito Brennan Date of : 1965 (59 y.o.) Referring Provider: No ref. provider found PCP: Estefani Dahl MD Assessment & Plan Verito Brennan is a 59 y.o. woman with history of arthritis and back pain who orginally presented to the clinic for preoperative risk stratification for hemilaminectomy, foraminotomy, and discectomy and was found to have a LBBB. She underwent an echocardiogram which revealed systolif HF with and EF of 35%. She then underwent nuclear stress [...] recovery of LVEF to 50 to 55%. Vasovagal presyncope-some of her symptoms that she is describing seem to be consistent with vasovagal syncope. I have asked her to stop all caffeine intake. She can continue her current fluid intake. We did discuss compression stockings. I have ordered an echocardiogram to reevaluate her heart pumping function. Discussed management of stress anxiety and depression. Patient will call her primary care. Chest pain-her chest pain is atypical in nature. She does have chest pain episodes with stress and anxiety. During her the visit she did have an event while thinking of her brother. We discussed that it would be unusual for her to have obstructive coronary artery disease 3 years from her left heart catheterization however there was a possibility of this. We discussed nuclear stress testing versus a cardiac CT. Given that her nuclear stress test was abnormal we discussed a cardiac CT instead. Patient is agreeable. Cardiac CT ordered. Echocardiogram ordered for reevaluation of LV function Chronic systolic HF -with recovery of LVEF. Euvolemic on exam. Etiology is nonischemic. She underwent left heart catheterization in 2021. - Continue metoprolol 50 mg daily. Continue Entresto 24-26 mg twice daily. Repeat echocardiogram ordered for reevaluation of LV function given her symptoms as below Palpitations-unclear etiology, may be related to stress and anxiety as these seem to be triggers. 30-day event monitor ordered. Patient reports lab work at the hospital. Will request lab work Return in about 6 months (around 04/08/2025). Vijay Sandoval MD [facility] Non-Invasive Cardiology [facility] Heart and Vascular Chief Complaint: HF Subjective Verito Brennan is a 59 y.o. woman with history of arthritis and back pain who orginally presented to the clinic for preoperative risk stratification for hemilaminectomy, foraminotomy, and discectomy and was found to have a LBBB. She underwent an echocardiogram which revealed systolif HF with and EF of 35%. She then underwent nuclear stress [...] recovery of LVEF to 50 to 55%. Reports that she has been having left mouth tingling and left hand tingling. She has also had issues with blurry vision. Reports that she had an event when she was driving where she felt her mouth tingling, left hand tingling, and had vision changes. Reports that she pulled over and the symptoms resolved. Reports that the first event occurred in August when she was driving to meet with her brothers doctors to discuss taking him off life support. She had another event in September when she was washing her car. It was hot that day. Feels really tired. Left lightheaded with these events. Reports that she as chest pressure after eating. Reports that if she burps it resolves the pressure. This has been going on for a year. Does have chronic shortness of breath. Reports that she has panic attacks.. When she calms down this goes back to normal. Lasts for 30 secs. Was taking zoloft but stopped taking it couple weeks ago. Does have foot swelling 4 times. Does feel her heart racing, typically at night. Review of Systems: Constitution: Negative. HENT: Negative. Cardiovascular: As above. Respiratory: As above. Endocrine: Negative. Skin: Negative. Musculoskeletal: Negative. Gastrointestinal: Negative. Genitourinary: Negative. Neurological: Negative. Psychiatric/Behavioral: Negative. Past Medical History: Diagnosis Date Anxiety Back pain CHF (congestive heart failure) ([facility]) Hypertension Seasonal allergies Systolic heart failure ([facility]) Past Surgical History: Procedure Laterality Date CARDIAC CATHETERIZATION N/A 08/23/2021 Procedure: Coronary Angiogram; Surgeon: Rios Verduzco MD; Location: [facility] [facility]; Service: Cardiovascular CARDIAC CATHETERIZATION N/A 08/23/2021 Procedure: Left Ventriculogram; Surgeon: Rios Verduzco MD; Location: [facility] [facility]; Service: Cardiovascular CERVICAL ABLATION W/ LASER 1997 HC LEFT HEART CATH N/A 08/23/2021 Procedure: Left Heart Cath; Surgeon: Rios Verduzco MD; Location: [facility] [facility]; Service: Cardiovascular HEMORRHOIDECTOMY 1997 LAMINECTOMY DECOMPRESSION MINIMALLY [...] and Insertion of Right Flank Implantable Pulse Generator.; Surgeon: [...] History Tobacco Use Smoking Status Every Day Types: Cigarettes Smokeless Tobacco Never Tobacco Comments smokes 1-2 cigarettes once in a while during stressful times. Allergies: Penicillins and Prednisone HOME Medications: Current Outpatient Medications on File Prior to Visit Medication Sig acetaminophen (TYLENOL) 500 MG tablet Take 1 (one) tablet (500 mg total) by mouth every 6 (six) hours as needed for pain . albuterol (Ventolin HFA) 90 mcg/actuation inhaler Inhale 2 (two) puffs every 4 to 6 hours as needed for wheezing or shortness of breath . aspirin 81 mg chewable tablet Chew [...] (50 mg total) by mouth daily . naloxone (NARCAN) 4 mg/actuation Frederic Administer 1 spray into one nostril for known or suspected opioid overdose. If patient worsens or does not respond, may repeat in 2-3 minutes. . sacubitriL-valsartan (Entresto) 24-26 mg per tablet Take 1 (one) tablet by mouth 2 (two) times a day . ALPRAZolam (XANAX) 0.25 MG tablet Take 1 (one) tablet (0.25 mg total) by mouth 3 (three) times a day as needed . (Patient not taking: Reported on 10/06/2024 .) sertraline (ZOLOFT) 25 MG tablet Take 1 (one) tablet (25 mg total) by mouth daily . (Patient not taking: Reported on 10/06/2024 .) No current facility-administered medications on file prior to visit. Physical Examination: BP 134/82 (BP Location: Left arm, Patient Position: Sitting, BP Cuff Size: X-large Adult) Pulse 86 Ht 5' 10 LMP (LMP Unknown) SpO2 98% BMI 34.15 kg/m Constitutional: Appears well-developed and [...] Psychiatric: Normal mood and affect. Cardiovascular Studies: 07/17/23 TTE Summary 1. Left ventricular systolic function is normal with an ejection fraction by Biplane Method of Discs of 56 %. 2. Abnormal septal motion consistent with a left bundle branch block. 3. Right ventricular size and systolic function are normal. 4. No significant valvular disease identified. 10/25/21 TTE Summary 1. Normal left-ventricular chamber [...] right ventricle systolic pressure is 38 mmHg. [facility] 08/23/21 Left Main The vessel is moderate in size. The vessel exhibits minimal luminal irregularities. No dampening of the pressure waveform with catheter engagement Left Anterior [...] 08/03/2021 TRIG 66 08/03/2021 HDL 56 08/03/2021 AUTHENTICATED BY VIJAY SANDOVAL, ON 10/06/2024 11:39:38 PATIENT EDUCATION Observed: 07/22/2024 1:27 PM Status: F Source: [facility] Patient Education Urology Hematuria, Adult Hematuria is blood in the urine. Blood may be visible in the urine, or it may be identified with a test. This condition can be caused by infections of the bladder, urethra, kidney, or prostate. Other possible causes include: ??? Kidney stones. ??? Cancer of the urinary tract. ??? Too much calcium in the urine. ??? Conditions that are passed from parent to child (inherited conditions). ??? Exercise that requires a lot of energy. Infections can usually be treated with medicine, and a kidney stone usually will pass through your urine. If neither of these is the cause of your hematuria, more tests may be needed to identify the cause of your symptoms. It is very important to tell your health care provider about any blood in your urine, even if it is painless or the blood stops without treatment. Blood in the urine, when it happens and then stops and then happens again, can be a symptom of a very serious condition, including cancer. There is no pain in the initial stages of many urinary cancers. Follow these instructions at home: Medicines ??? Take toqh-tdz-bcyhvjf and prescription medicines only as told by your health care provider. ??? If you were prescribed an antibiotic medicine, take it as told by your health care provider. Do not stop taking the antibiotic even if you start to feel better. Eating and drinking ??? Drink enough fluid to keep your urine pale yellow. It is recommended that you drink 3?4 quarts (2.8?3.8 L) a day. If you have been diagnosed with an infection, drinking cranberry juice in addition to large amounts of water is recommended. ??? Avoid caffeine, tea, and carbonated beverages. These tend to irritate the bladder. ??? Avoid alcohol because it may irritate the prostate (in males). General instructions ??? If you have been diagnosed with a kidney stone, follow your health care provider's instructions about straining your urine to catch the stone. ??? Empty your bladder often. Avoid holding urine for long periods of time. ??? If you are female: ? After a bowel movement, wipe from front to back and use each piece of toilet paper only once. ? Empty your bladder before and after sex. ??? Pay attention to any changes in your symptoms. Tell your health care provider about any changes or any new symptoms. ??? It is up to you to get the results of any tests. Ask your health care provider, or the department that is doing the test, when your results will be ready. ??? Keep all follow-up visits. This is important. Contact a health care provider if: ??? You develop back pain. ??? You have a fever or chills. ??? You have nausea or vomiting. ??? Your symptoms do not improve after 3 days. ??? Your symptoms get worse. Get help right away if: ??? You develop severe vomiting and are unable to take medicine without vomiting. ??? You develop severe pain in your back or abdomen even though you are taking medicine. ??? You pass a large amount of blood in your urine. ??? You pass blood clots in your urine. ??? You feel very weak or like you might faint. ??? You faint. Summary ??? Hematuria is blood in the urine. It has many possible causes. ??? It is very important that you tell your health care provider about any blood in your urine, even if it is painless or the blood stops without treatment. ??? Take okoa-kzc-xfoadnn and prescription medicines only as told by your health care provider. ??? Drink enough fluid to keep your urine pale yellow. This information is not intended to replace advice given to you by your health care provider. Make sure you discuss any questions you have with your health care provider. Document Revised: 10/20/2020 Document Reviewed: 10/20/2020 [employer] Patient Education ? 2023 [employer]. AMBULATORY VISIT SUMMARY Observed: 07/22 1:15 PM Status: F Source: [facility] Ambulatory Visit Summary VERITO BRENNAN :1965 Visit Date:07/22/2024 Ambulatory Visit Instructions Your Diagnosis Asymptomatic microscopic hematuria Incomplete bladder emptying Your Care Team Attending Physician - NEAL CHEN, Justin Griffiths Primary Care Physician - ESTEFANI DAHL MD This Is Your Medications List ciprofloxacin (Cipro 500 mg Tab) Contact prescribing physician if questions or concerns acetaminophen (Tylenol Extra Strength 500 mg oral tablet) aspirin (aspirin 81 mg Oral EC Tab) atorvastatin (atorvastatin 20 mg Tab) loratadine metoprolol (metoprolol succinate 50 mg ER Tab) sacubitril-valsartan (Entresto 24 mg-26 mg oral tablet) Procedures Performed Flexible cystoscope (07/22/2024), Back, Colonoscopy, Hemorrhoid, History of laminectomy. Discharge Vitals Temperature (Temporal Artery) 36.7 ???C Heart Rate (Peripheral) 93 Respiratory Rate 16 Blood Pressure 132/65 Height 178 cm Height 70 in Weight 117 kg Weight 257.941 lb BMI 36.93 What to do next You Need to Schedule the Following Appointments Follow Up with NEAL CHEN, SIVAN Johnson When: Where: [facility] [address], [place] [address]- Medications What How Much When Instructions Unchanged ciprofloxacin (Cipro 500 mg Tab) See instructions 1 tab po night prior to cystoscopy. 1 tab po following cystoscopy. Unchanged acetaminophen (Tylenol Extra Strength 500 mg oral tablet) 1 Tablets By Mouth Every 6 hours Contact prescribing physician if questions or concerns Unchanged aspirin (aspirin 81 mg Oral EC Tab) 1 Tablets By Mouth Every day Contact prescribing physician if questions or concerns Unchanged atorvastatin (atorvastatin 20 mg Tab) 1 Tablets By Mouth Every day Contact prescribing physician if questions or concerns Unchanged loratadine 10 Milligram By Mouth Every day Contact prescribing physician if questions or concerns Unchanged metoprolol (metoprolol succinate 50 mg ER Tab) 1 Tablets By Mouth Every day Contact prescribing physician if questions or concerns Unchanged sacubitril-valsartan (Entresto 24 mg-26 mg oral tablet) 1 Tablets By Mouth 2 times a day TAKE 1 TABLET BY MOUTH TWICE DAILY Contact prescribing physician if questions or concerns Medications and Immunizations Administered Given lidocaine Top 2% Gel w/Appl 6 mL, 6 mL, Topical. For: Asymptomatic microscopic hematuria, Incomplete bladder emptying Allergies penicillin (Rash) predniSONE (Rash) Problems Ongoing - Any problem that you are currently receiving treatment for. Anxiety Arthritis of right acromioclavicular joint Asymptomatic microscopic hematuria Chronic systolic heart failure Decreased cardiac ejection fraction Endometriosis Heart attack Heart disease High cholesterol Hypertension Incomplete bladder emptying Lower urinary tract symptoms (LUTS) Lumbar degenerative disc disease Sacroiliitis Patient Survey You may receive a survey via text or e-mail asking about your office visit. Please share your experience with us by completing your survey. We appreciate your feedback and thank you for choosing us for your care. Education Materials Hematuria, Adult Hematuria is blood in the urine. Blood may be visible in the urine, or it may be identified with a test. This condition can be caused by infections of the bladder, urethra, kidney, or prostate. Other possible causes include: ??? Kidney stones. ??? Cancer of the urinary tract. ??? Too much calcium in the urine. ??? Conditions that are passed from parent to child (inherited conditions). ??? Exercise that requires a lot of energy. Infections can usually be treated with medicine, and a kidney stone usually will pass through your urine. If neither of these is the cause of your hematuria, more tests may be needed to identify the cause of your symptoms. It is very important to tell your health care provider about any blood in your urine, even if it is painless or the blood stops without treatment. Blood in the urine, when it happens and then stops and then happens again, can be a symptom of a very serious condition, including cancer. There is no pain in the initial stages of many urinary cancers. Follow these instructions at home: Medicines ??? Take unva-vox-bhvhnay and prescription medicines only as told by your health care provider. ??? If you were prescribed an antibiotic medicine, take it as told by your health care provider. Do not stop taking the antibiotic even if you start to feel better. Eating and drinking ??? Drink enough fluid to keep your urine pale yellow. It is recommended that you drink 3???4 quarts (2.8???3.8 L) a day. If you have been diagnosed with an infection, drinking cranberry juice in addition to large amounts of water is recommended. ??? Avoid caffeine, tea, and carbonated beverages. These tend to irritate the bladder. ??? Avoid alcohol because it may irritate the prostate (in males). General instructions ??? If you have been diagnosed with a kidney stone, follow your health care provider's instructions about straining your urine to catch the stone. ??? Empty your bladder often. Avoid holding urine for long periods of time. ??? If you are female: ? After a bowel movement, wipe from front to back and use each piece of toilet paper only once. ? Empty your bladder before and after sex. ??? Pay attention to any changes in your symptoms. Tell your health care provider about any changes or any new symptoms. ??? It is up to you to get the results of any tests. Ask your health care provider, or the department that is doing the test, when your results will be ready. ??? Keep all follow-up visits. This is important. Contact a health care provider if: ??? You develop back pain. ??? You have a fever or chills. ??? You have nausea or vomiting. ??? Your symptoms do not improve after 3 days. ??? Your symptoms get worse. Get help right away if: ??? You develop severe vomiting and are unable to take medicine without vomiting. ??? You develop severe pain in your back or abdomen even though you are taking medicine. ??? You pass a large amount of blood in your urine. ??? You pass blood clots in your urine. ??? You feel very weak or like you might faint. ??? You faint. Summary ??? Hematuria is blood in the urine. It has many possible causes. ??? It is very important that you tell your health care provider about any blood in your urine, even if it is painless or the blood stops without treatment. ??? Take thpp-tfy-mqpxpul and prescription medicines only as told by your health care provider. ??? Drink enough fluid to keep your urine pale yellow. This information is not intended to replace advice given to you by your health care provider. Make sure you discuss any questions you have with your health care provider. Document Revised: 10/20/2020 Document Reviewed: 10/20/2020 [employer] Patient Education ??? 2023 [employer]. UROLOGY OFFICE/CLINIC NOTE Observed: 1:15 PM Status: F Source: [facility] Urology Office/Clinic Note Chief Complaint Cysto HPI Staff Cysto (cytol done). Possible UD. Abx taken History of Present Illness Tests reviewed: cytology, CT I have reviewed the previous health record information and history for this patient from Dr. Miller. I have reviewed and verified the staff HPI to be accurate for this encounter. Review of Systems PHQ Score Initial Depression Screen Score: 0 SCORE ROS - Provider Constitutional: denies weight loss, denies hot flashes. Eyes: denies eye problems. Gastrointestinal: denies nausea, denies vomiting. Cardiovascular: denies chest pain or angina. Integumentary: no dryness Musculoskeletal: denies musculoskeletal symptoms. ENMT: denies otolaryngeal symptoms. Respiratory: no shortness of breath. Heme/Lymph: denies easy bleeding tendency, denies easy bruising tendency. Psychiatric: no confusion, no anxiety. Genitourinary: See HPI. Physical Exam Vitals & Measurements T: 36.7 ???C(Temporal Artery) HR: 93(Peripheral) RR: 16 BP: 132/65 HT: 70 in HT: 178 cm WT: 257.941 lb WT: 117 kg BMI: 36.93 General Appearance: alert, no distress, well nourished, well developed female. Procedure Operative Information Anesthesia Type: Local Procedure: Local Cystoscopy Complications: None Surgical risks, benefits, details of the procedure have been explained to the patient. Full informed consent has been obtained. Intraoperative Information Prepped: Patient is brought back to the endoscopy suite. Patient is placed in modified dorso/lithotomy position. Patient prepped in the usual fashion with Betadine solution. 2% Xylocaine Jelly is placed per Urethra. After waiting several minutes, the Cystoscope is introduced. The Urethra is: Normal The Bladder: _No tumor or stones, profound lack of bladder sensation of fullness , Trabeculated: Mild (1) The Ureteral orifices: Show efflux of clear urine Specimens Removed: None Removal: Cystoscope is removed. The patient tolerated it well. Postoperative Information Patient is discharged home with antibiotic coverage. Follow up arranged. Assessment/Plan JEAN-PAUL pt. 1. Asymptomatic microscopic hematuria (R31.21: Asymptomatic microscopic hematuria) CT AP w/wo con 06/27/24 [facility] - Neg. Cytology neg. Pt had IO cysto today wo complications. This completes the pt's hematuria workup which was neg. Follow up PRN. Pt understands and agrees with plan. 2. Incomplete bladder emptying (R33.9: Retention of urine, unspecified) PVR (cc): 06/12/24 - 163 -Start timed/double voids Follow-up With When Contact Information NEAL CHEN, Justin Griffiths, URL [facility] [address] [place] [address]- Additional Instructions: PRN Patient Education Hematuria, Adult I, Jessenia Ellison, personally scribed for Dr. Miller on 07/22/2024 13:42:22. . Problem List/Past Medical History Ongoing Anxiety Arthritis of right acromioclavicular joint Asymptomatic microscopic hematuria Chronic systolic heart failure Decreased cardiac ejection fraction Endometriosis Heart attack Heart disease High cholesterol Hypertension Incomplete bladder emptying Lower urinary tract symptoms (LUTS) Lumbar degenerative disc disease Sacroiliitis Historical No qualifying data Procedure/Surgical History Flexible cystoscope (07/22/2024), Back, Colonoscopy, Hemorrhoid, History of laminectomy. Medications aspirin 81 mg Oral EC Tab, 81 mg= 1 tab(s), Oral, Daily atorvastatin 20 mg Tab, 20 mg= 1 tab(s), Oral, Daily Cipro 500 mg Tab, See Instructions Entresto 24 mg-26 mg oral tablet, 1 tab(s), Oral, BID loratadine, 10 mg, Oral, Daily metoprolol succinate 50 mg ER Tab, 50 mg= 1 tab(s), Oral, Daily Tylenol Extra Strength 500 mg oral tablet, 500 mg= 1 tab(s), Oral, q6hr Allergies penicillin (Rash) predniSONE (Rash) Social History Alcohol - Denies Alcohol Use, 06/12/2024 Never., 07/21/2024 Substance Abuse Never., 07/21/2024 Tobacco 4 or less cigarettes(less than 1/4 pack)/day in last 30 days Tobacco Use:. Never Smokeless Tobacco Use:. Cigarettes, Yes, 07/22/2024 Family History Cancer: Mother. Diabetes mellitus: Mother and Father. Heart disease: Mother and Father. High cholesterol: Father. Hypertension: Father. Kidney disease: Mother. Kidney stone: Mother. Stroke: Father. Immunizations Vaccine Date Status SARS-CoV-2 (COVID-19) mRNA-1273 vaccine 02/11/2021 Recorded SARS-CoV-2 (COVID-19) mRNA-1273 vaccine 06/25/2020 Recorded SARS-CoV-2 (COVID-19) mRNA-1273 vaccine 05/28/2020 Recorded Result Comment: Electronical ly Signed By: Justin MILLER MD\.br\Date and Time Signed: 07/22/24 13:47 EDT\.br\Electronically Co-Signed By: Jessenia Ellison\.br\Date and Time Co-Signed: 07/22/24 13:42 EDT PATIENT EDUCATION Observed: 06/12/2024 12:13 PM Status: F Source: [facility] Patient Education Urology Hematuria, Adult Hematuria is blood in the urine. Blood may be visible in the urine, or it may be identified with a test. This condition can be caused by infections of the bladder, urethra, kidney, or prostate. Other possible causes include: ??? Kidney stones. ??? Cancer of the urinary tract. ??? Too much calcium in the urine. ??? Conditions that are passed from parent to child (inherited conditions). ??? Exercise that requires a lot of energy. Infections can usually be treated with medicine, and a kidney stone usually will pass through your urine. If neither of these is the cause of your hematuria, more tests may be needed to identify the cause of your symptoms. It is very important to tell your health care provider about any blood in your urine, even if it is painless or the blood stops without treatment. Blood in the urine, when it happens and then stops and then happens again, can be a symptom of a very serious condition, including cancer. There is no pain in the initial stages of many urinary cancers. Follow these instructions at home: Medicines ??? Take opwh-crq-jadcmiq and prescription medicines only as told by your health care provider. ??? If you were prescribed an antibiotic medicine, take it as told by your health care provider. Do not stop taking the antibiotic even if you start to feel better. Eating and drinking ??? Drink enough fluid to keep your urine pale yellow. It is recommended that you drink 3?4 quarts (2.8?3.8 L) a day. If you have been diagnosed with an infection, drinking cranberry juice in addition to large amounts of water is recommended. ??? Avoid caffeine, tea, and carbonated beverages. These tend to irritate the bladder. ??? Avoid alcohol because it may irritate the prostate (in males). General instructions ??? If you have been diagnosed with a kidney stone, follow your health care provider's instructions about straining your urine to catch the stone. ??? Empty your bladder often. Avoid holding urine for long periods of time. ??? If you are female: ? After a bowel movement, wipe from front to back and use each piece of toilet paper only once. ? Empty your bladder before and after sex. ??? Pay attention to any changes in your symptoms. Tell your health care provider about any changes or any new symptoms. ??? It is up to you to get the results of any tests. Ask your health care provider, or the department that is doing the test, when your results will be ready. ??? Keep all follow-up visits. This is important. Contact a health care provider if: ??? You develop back pain. ??? You have a fever or chills. ??? You have nausea or vomiting. ??? Your symptoms do not improve after 3 days. ??? Your symptoms get worse. Get help right away if: ??? You develop severe vomiting and are unable to take medicine without vomiting. ??? You develop severe pain in your back or abdomen even though you are taking medicine. ??? You pass a large amount of blood in your urine. ??? You pass blood clots in your urine. ??? You feel very weak or like you might faint. ??? You faint. Summary ??? Hematuria is blood in the urine. It has many possible causes. ??? It is very important that you tell your health care provider about any blood in your urine, even if it is painless or the blood stops without treatment. ??? Take ebyu-rsa-dcvcasq and prescription medicines only as told by your health care provider. ??? Drink enough fluid to keep your urine pale yellow. This information is not intended to replace advice given to you by your health care provider. Make sure you discuss any questions you have with your health care provider. Document Revised: 10/20/2020 Document Reviewed: 10/20/2020 [employer] Patient Education ? 2023 [employer]. URINE CYTOLOGY ([facility]) Collected: 12/2024 11:45 AM Status: F Source: [facility] TYPE CODE TESTS RESULT OUT OF RANGE REFERENCE UNITS LAB 23415-1([facility]) MICROSCOPIC EXAM:IMP:PT:URI NE:NOM:CYTOLOGY Diagnosis Info Unknown Result Comment: A:Urine,Nitza n Catch:Voided Interpretation - Adequate cellularity for evaluation. CPT 21582 MicroScopic Description - Adequacy - Gross Description Site ID:A color Yellow fixative Alcohol Specimen designated Clean Catch received in alcohol preservative and labeled with the patient???s name, consists of 110ml clear yellow fluid. Electronically signed by : on: 06/17/2024 12:21:21 LAB CD:[id number]( [facility]) Number of Jars 1 Unknown LAB CD:[id number]( [facility]) Type of Service Technical Only Normal LAB CD:[id number]( [facility]) Method of Extraction Voided Normal LAB CD:[id number]( [facility]) Specimen Clean Catch Normal Performed By: #### [id number] #### [facility] [address] [place] [address] AMBULATORY VISIT SUMMARY Observed: 06/12 10:15 AM Status: F Source: [facility] Ambulatory Visit Summary VERITO BRENNAN :1965 Visit Date:06/12/2024 Ambulatory Visit Instructions Your Diagnosis Asymptomatic microscopic hematuria Incomplete bladder emptying Lower urinary tract symptoms (LUTS) Your Care Team Attending Physician - BILL HARTLEY PA-C Primary Care Physician - ESTEFANI DAHL MD This Is Your Medications List ciprofloxacin (Cipro 500 mg Tab) Contact prescribing physician if questions or concerns acetaminophen (Tylenol Extra Strength 500 mg oral tablet) aspirin (aspirin 81 mg Oral EC Tab) atorvastatin (atorvastatin 20 mg Tab) loratadine metoprolol (metoprolol succinate 50 mg ER Tab) sacubitril-valsartan (Entresto 24 mg-26 mg oral tablet) Procedures Performed Back, Colonoscopy, Hemorrhoid, History of laminectomy. Discharge Vitals Heart Rate (Peripheral) 80 Respiratory Rate 16 Blood Pressure 129/60 Height 178 cm Height 70 in Weight 117 kg Weight 257.941 lb BMI 36.93 Medications What How Much When Instructions New ciprofloxacin (Cipro 500 mg Tab) See instructions 1 tab po night prior to cystoscopy. 1 tab po following cystoscopy. Pickup at [facility]/pharmacy #[id number] Unchanged acetaminophen (Tylenol Extra Strength 500 mg oral tablet) 1 Tablets By Mouth Every 6 hours Contact prescribing physician if questions or concerns Unchanged aspirin (aspirin 81 mg Oral EC Tab) 1 Tablets By Mouth Every day Contact prescribing physician if questions or concerns Unchanged atorvastatin (atorvastatin 20 mg Tab) 1 Tablets By Mouth Every day Contact prescribing physician if questions or concerns Unchanged loratadine 10 Milligram By Mouth Every day Contact prescribing physician if questions or concerns Unchanged metoprolol (metoprolol succinate 50 mg ER Tab) 1 Tablets By Mouth Every day Contact prescribing physician if questions or concerns Unchanged sacubitril-valsartan (Entresto 24 mg-26 mg oral tablet) 1 Tablets By Mouth 2 times a day TAKE 1 TABLET BY MOUTH TWICE DAILY Contact prescribing physician if questions or concerns Pharmacy Information [facility]/pharmacy #[id number]: [address] [place], [place] [phone] Allergies penicillin (Rash) predniSONE (Rash) Problems Ongoing - Any problem that you are currently receiving treatment for. Anxiety Arthritis of right acromioclavicular joint Asymptomatic microscopic hematuria Chronic systolic heart failure Decreased cardiac ejection fraction Endometriosis Heart attack Heart disease High cholesterol Hypertension Lower urinary tract symptoms (LUTS) Lumbar degenerative disc disease Sacroiliitis Patient Survey You may receive a survey via text or e-mail asking about your office visit. Please share your experience with us by completing your survey. We appreciate your feedback and thank you for choosing us for your care. AMBULATORY VISIT SUMMARY Observed: 06/12 10:15 AM Status: F Source: [facility] Ambulatory Visit Summary VERITO BRENNAN :1965 Visit Date:06/12/2024 Ambulatory Visit Instructions Your Diagnosis Asymptomatic microscopic hematuria Incomplete bladder emptying Lower urinary tract symptoms (LUTS) Tests Performed CT Urogram -- Results Pending -- Please visit your patient portal for your results or contact your primary care physician. Your Care Team Attending Physician - BILL HARTLEY PA-C Primary Care Physician - ESTEFANI DAHL MD This Is Your Medications List ciprofloxacin (Cipro 500 mg Tab) Contact prescribing physician if questions or concerns acetaminophen (Tylenol Extra Strength 500 mg oral tablet) aspirin (aspirin 81 mg Oral EC Tab) atorvastatin (atorvastatin 20 mg Tab) loratadine metoprolol (metoprolol succinate 50 mg ER Tab) sacubitril-valsartan (Entresto 24 mg-26 mg oral tablet) Procedures Performed Back, Colonoscopy, Hemorrhoid, History of laminectomy. Discharge Vitals Heart Rate (Peripheral) 80 Respiratory Rate 16 Blood Pressure 129/60 Height 178 cm Height 70 in Weight 117 kg Weight 257.941 lb BMI 36.93 Medications What How Much When Instructions New ciprofloxacin (Cipro 500 mg Tab) See instructions 1 tab po night prior to cystoscopy. 1 tab po following cystoscopy. Pickup at [facility]/pharmacy #[id number] Unchanged acetaminophen (Tylenol Extra Strength 500 mg oral tablet) 1 Tablets By Mouth Every 6 hours Contact prescribing physician if questions or concerns Unchanged aspirin (aspirin 81 mg Oral EC Tab) 1 Tablets By Mouth Every day Contact prescribing physician if questions or concerns Unchanged atorvastatin (atorvastatin 20 mg Tab) 1 Tablets By Mouth Every day Contact prescribing physician if questions or concerns Unchanged loratadine 10 Milligram By Mouth Every day Contact prescribing physician if questions or concerns Unchanged metoprolol (metoprolol succinate 50 mg ER Tab) 1 Tablets By Mouth Every day Contact prescribing physician if questions or concerns Unchanged sacubitril-valsartan (Entresto 24 mg-26 mg oral tablet) 1 Tablets By Mouth 2 times a day TAKE 1 TABLET BY MOUTH TWICE DAILY Contact prescribing physician if questions or concerns Pharmacy Information [facility]/pharmacy #[id number]: [address] [place], [place] [id number] [phone] Allergies penicillin (Rash) predniSONE (Rash) Problems Ongoing - Any problem that you are currently receiving treatment for. Anxiety Arthritis of right acromioclavicular joint Asymptomatic microscopic hematuria Chronic systolic heart failure Decreased cardiac ejection fraction Endometriosis Heart attack Heart disease High cholesterol Hypertension Lower urinary tract symptoms (LUTS) Lumbar degenerative disc disease Sacroiliitis Patient Survey You may receive a survey via text or e-mail asking about your office visit. Please share your experience with us by completing your survey. We appreciate your feedback and thank you for choosing us for your care. UROLOGY OFFICE/CLINIC NOTE Observed: 12/2024 10:15 AM Status: F Source: [facility] Urology Office/Clinic Note Chief Complaint New patient HPI Staff 59 yr old female referred by Dr Estefani Dahl MD with dx of asymptomatic microscopic hematuria. UA 05/08/24 shows 2+ hgb. UA 05/29/24 shows small hgb, Cx shows mixed skin contam. UA today shows small hgb. No hx stones. No hx gross hematuria. No issues w freq UTIs. Pt has c/o urinary frequency q1h during day. Moderate-severe urgency. UUI at least once daily. Occasional PVD. Sx started about 3 mos ago and are worsening. Pt concerned this could be d/t an episode where she tried to apply Icy-Hot to her low back but it ran down into her buttocks and vagina. 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 no rash/lesions. no chest pain, palpitations, or SOB. no abdominal pain, nausea, vomiting. Physical Exam Vitals & Measurements HR: 80(Peripheral) RR: 16 BP: 129/60 HT: 70 in HT: 178 cm WT: 257.941 lb WT: 117 kg BMI: 36.93 General: nontoxic, NAD Mouth: moist mucosa Lungs: normal respiratory effort Cardio: regular rate, good distal perfusion Abdomen: nondistended Neurologic: Grossly normal Skin: No rashes or suspicious lesions Assessment/Plan 1. Asymptomatic microscopic hematuria (R31.21: Asymptomatic microscopic hematuria) AUA microhematuria risk assessment: age FM & M >60 : high smoking hx <10 pack years : low RBCs on UA 2+/small additional risk factors- irritative LUTS: yes, new onset/recent changes last 3 mos; family hx cancer: no; occupational exposure: no whirlpool; hx chronic indwelling foreign body in urinary tract: no; previously low risk with no prior imaging/cysto: no, first episode Based on the above risk assessment the pt is considered HIGH risk - CTU, cysto, and cytology indicated. Discussed options. The patient is aware that a distinct etiology of the hematuria may not be clear upon conclusion of the workup. Will initiate hematuria workup to include upper urinary tract imaging, as well as evaluation of the urinary cells with urine cytology and possible a FISH test. A cystoscopy will be scheduled to rule out lower urinary tract pathology. The rationale for this workup has been discussed, and all questions have been answered. The risks and benefits for cystoscopy have been discussed. The risks include bleeding, infection, and irritation of the bladder and urinary channel, among others. The patient, after being informed of procedural details and after questions have been answered, wishes to proceed. Full informed consent has been obtained. Will order Local anesthesia. Antibiotics have been sent to pharmacy for procedure. Ordered: Urnls Dip Stick Auto w/o Microscopy POC 55133 2. Incomplete bladder emptying (R33.9: Retention of urine, unspecified) PVR 163 ml. Encouraged double void maneuvers and timed voiding. If no significant stricture identified on cysto, will need to monitor PVR closely. Ordered: [id number] Measure Post Void residual urine and/or bladder capacity by US- non- imaging 3. Lower urinary tract symptoms (LUTS) (R39.9: Unspecified symptoms and signs involving the genitourinary system) Acute onset without infection. Not diabetic. Denies med or diet changes. Pt is about 10-15 yrs postmenopausal so certainly could be urethral stricture. Will eval during cysto. If no stricture found, can consider OAB treatment but we are limited due to #2. Discussed UD. The procedure risks, benefits, details, and treatment alternatives have been discussed with the patient. These include bleeding, infection, recurrent scar in over 50%, need for repeat dilation or other procedures, no symptom relief with dilation, among others. Full informed consent has been obtained. Will order Local anesthesia. Orders: ciprofloxacin, See Instructions, 1 tab po night prior to cystoscopy. 1 tab po following cystoscopy., # 2 tab(s), Refills(s) 0, Pharmacy: [facility][id number], 178, cm, 06/12/24 10:46:00 EDT, Height/Length Dosing, 117, kg, 06/12/24 10:46:00 EDT, Weight Dosing Follow-up With When Contact Information [facility] Additional Instructions: For procedure as scheduled. Patient Education Hematuria, Adult Problem List/Past Medical History Ongoing Anxiety Arthritis of right acromioclavicular joint Asymptomatic microscopic hematuria Chronic systolic heart failure Decreased cardiac ejection fraction Endometriosis Heart attack Heart disease High cholesterol Hypertension Lower urinary tract symptoms (LUTS) Lumbar degenerative disc disease Sacroiliitis Historical No qualifying data Procedure/Surgical History Back, Colonoscopy, Hemorrhoid, History of laminectomy. Medications aspirin 81 mg Oral EC Tab, 81 mg= 1 tab(s), Oral, Daily atorvastatin 20 mg Tab, 20 mg= 1 tab(s), Oral, Daily Cipro 500 mg Tab, See Instructions Entresto 24 mg-26 mg oral tablet, 1 tab(s), Oral, BID loratadine, 10 mg, Oral, Daily metoprolol succinate 50 mg ER Tab, 50 mg= 1 tab(s), Oral, Daily Tylenol Extra Strength 500 mg oral tablet, 500 mg= 1 tab(s), Oral, q6hr Allergies penicillin (Rash) predniSONE (Rash) Social History Alcohol - Denies Alcohol Use, 06/12/2024 Tobacco 4 or less cigarettes(less than 1/4 pack)/day in last 30 days Tobacco Use:. Never Smokeless Tobacco Use:. Cigarettes, Started age 17.0 Years. Yes, 06/12/2024 Family History Cancer: Mother. Diabetes mellitus: Mother and Father. Heart disease: Mother and Father. High cholesterol: Father. Hypertension: Father. Kidney disease: Mother. Kidney stone: Mother. Stroke: Father. Lab Results Ambulatory Point of Care Results Bilirubin Urine Dipstick: Negative (06/12/24 10:39:00) Blood Urine Dipstick: 1+ Small (06/12/24 10:39:00) Glucose Urine Dipstick: Negative (06/12/24 10:39:00) Ketones Urine Dipstick: Negative (06/12/24 10:39:00) Leukocytes Urine Dipstick: Negative (06/12/24 10:39:00) Nitrite Urine Dipstick: Negative (06/12/24 10:39:00) Protein Urine Dipstick: Negative (06/12/24 10:39:00) Specific [place] Urine Dipstick: 1.010 (06/12/24 10:39:00) Urine Appearance Urine Dipstick: Clear (06/12/24 10:39:00) Urine Color Urine Dipstick: Yellow (06/12/24 10:39:00) Urobilinogen Urine Dipstick: Normal 0.2-1 EU/dl (06/12/24 10:39:00) pH Urine Dipstick: 5.5 (06/12/24 10:39:00) Result Comment: Electronical ly Signed By: BILL HARTLEY PA-C\.br\Date and Time Signed: 06/12/24 12:13 EDT URINE CULTURE Observed: 05/08/2024 1:00 PM Status: F Source: [facility] 50,000 colonies/ml mixed bacterial skin contaminants 2 Days PERFORMED BY: [place] [id number] PATHOLOGIST DUMP TRUCK DRIVER ZAC RAYO M.D. Performed By: #### CUU #### [address] PROGRESS Observed: 03/14/2024 4:49 PM Status: COMPLETED Source: [facility] AMBULATORY Patient seen today with Naomie Moya. Patient's spinal cord stimulator was interrogated and found to be covering her back and both lower extremities. At this time loss control representative adjusted patient's stimulator settings and we will utilize these new settings for the next 7 days to see if her pain improves. The patient is to call our office if she does not see improvement in pain or pain or symptoms should worsen. Call with any questions. AUTHENTICATED BY CAROLINE CARRION, ON 03/14/2024 16:52:05 PROGRESS Observed: 03/12/2024 4:12 PM Status: COMPLETED Source: [facility] AMBULATORY Patient called 03/11/24 and I relayed to [...] states he will relay this information to Nita, neuromodulator loss control representative, and we will get the patient scheduled for spinal cord stimulator interrogation and if needed reprogramming to see if we can capture her pain. Asked patient to notify me if she does not hear from loss control representative by the end of the week. AUTHENTICATED BY CAROLINE CARRION, ON 03/12/2024 16:17:51 XR THORACOLUMBAR 2+ VIEWS Observed: 05/2024 1:59 PM Status: F Source: [facility] Order Comment: Thoracolumbar 2 view, AP and lateral, include whole [...] Type of Exam?:Subsequent/Follow-up Additional signs and symptoms?:. EXAMINATION: XR THORACOLUMBAR 2+ VIEWS 03/07/2024 2:10 [...] abnormality of the thoracolumbar spine is identified. [employer] Workstation ID: [id number] Dictated by: IVANNA CAMARILLO on SunMar 10, 2024 10:33:50 AM EST Transcribed by: DELIO RODAS on SunMar 10, 2024 11:16:22 AM EST Finalized by: IVANNA CAMARILLO on SunMar 10, 2024 3:29:17 PM EST PROGRESS Observed: 03/07/2024 1:19 PM Status: COMPLETED Source: [facility] Neurosurgery Progress Note Assessment/Plan: 59 yo female with [...] Will send in one time course of [place] for pain control, side effects discussed. Utilize [...] pain, fall/injury, weakness, incontinence. Caroline Carrion PA-C [facility] [place] Subjective: Patient presents for pain that started several days before Justin without cause over her low back. She states low back began dull aching pain. [place] day while playing cards with family at [...] off. She had left over tizanidine and [place] she took which helped control the pain. She has enough tizanidine but request refill of [place]. She states currently she has aching dull [...] left. AUTHENTICATED BY CAROLINE CARRION, ON 03/08/2024 00:10:03 ALLERGIES DATE TYPE / CODE NAME / CODE REACTION SEVERITY SOURCE 06/28/2022 DRUG INGREDI/[id number]( SNOMED CT) PREDNISONE Rash [facility] 01/05/2015 Drug Class/627366526(SN OMED CT) PENICILLINS Nauseavomit [facility] DR/516862067(SNOME D CT) penicillin [id number] [facility] /[id number](SNOME D CT) predniSONE [id number] [facility] ENCOUNTERS ADMIT/DISCHARGE ACCOUNT NUMBER ADMITTING ENCOUNTER CLASS LOCATION SOURCE 10/29/2024/10/30/19 [id number] Ambulatory Building:[address] 10/29/2024/10/30/19 [id number] Ambulatory Building:[address] 10/29/2024/10/30/19 [id number] Ambulatory Building:[facility] 10/06/2024/10/11/19 [id number] VIJAY SANDOVAL Ambulatory Building:[facility] 10/06/2024/10/07/19 [id number] Ambulatory Building:[facility] 10/06/2024 [id number] Ambulatory Building:[facility] 09/26/2024 [id number] Ambulatory Building:[facility] 07/22/2024/07/23/19 [id number] Ambulatory [place] : Exam 2 [facility] 06/12/2024/06/13/19 [id number] BILL HARTLEY Ambulatory [facility] 06/12/2024/06/13/19 [id number] Ambulatory [place] : Exam 2 [facility] 06/06/2024 [id number] Ambulatory [place] [facility] 05/08/2024/05/09/19 [id number] Estefani Dahl [facility] 03/07/2024/03/07/19 [id number] Ambulatory Building:6 2 [facility] 03/07/2024/03/07/19 [id number] Ambulatory Building:[facility]OS[facility]GG[facility] 12/20/2023/12/20/19 [id number] Ambulatory Building:NOM S CI POD [facility] EPIC PAYERS ENCOUNTER GUARANTOR PAYER SUBSCRIBER SOURCE 10/29/2024 VERITO VALERAB: [place], [place] [address]Cti: (HP) [place] Insurance[place] [place] HMOPolicy Number: [id number] Date:0399-49-06TG [address] [place], [place] [address]WP: VERITO VALERAB: [id number] [place], [place] [address]Hmc: (HP) (WP) [facility] 10/29/2024 VERITO VALERAB: [place], [place] [address]Rvt: (HP) Primary Insurance[place] [place] [place] HMPersonetay Number: [id number] Date:3977-51-66SJ [address] [place] [phone]: VERITO BRENNANB: [id number] [place]Y [place], [place] [address]Xbo: (HP) (WP) [facility] 10/29/2024 VERITO VALERAB: [place], [place] [address]Zkr: (HP) Primary Insurance[place] [place] [place] HMOPolicy Number: [id number] Date:3542-58-10LK [address] [place], [place] [address]WP: VERITO VALERAB: [id number] [place], [place] [address]Gjm: (HP) (WP) [facility] 10/06/2024 VERITO VALERAB: [place] [address]Dwa: (HP) Primary Insurance:MMO MANAGED MEDICAREPolicy Number: [id number] Date:7610-57-33MZ [address] [place] [address]BQ: VERITO VALERAB: [id number] [place] [address]Veq: (HP) (WP) [facility] 10/06/2024 VERITO VALERAB: [place] [address]Tgp: (HP) Primary Insurance:MMO MANAGED MEDICAREPolicy Number: [id number] Date:8731-95-84AX [address] [place] [phone]: VERITO VALERAB: [id number] J[place]EMY [place] [address]Ymq: (HP) (WP) [facility] 10/06/2024 VERITO MERIDA: [place] [address]Rtz: (HP) Primary Insurance:MMO MANAGED MEDICAREPolicy Number: [id number] Date:0892-78-42VW [address] [place] [address]XT: VERITO VALERAB: [id number] [place] [address]Wkx: (HP) (WP) [facility] 09/26/2024 VERITO VALERAB: [place] [address]Bym: (HP) Primary Insurance:MMO MANAGED MEDICAREPolicy Number: [id number] Date:6336-98-38CI [address] [place] [address]JA: VERITO VALERAB: [id number] [place], [place] [address]Dhq: (HP) (WP) [facility] 07/22/2024 VERITO VALERAB: JEREMY STTel: ~~([phone] (HP) Primary Insurance:MEDICAL MUTUALPolicy Number: [id number] Date:0376-11-03PR [address] [address]VA: VERITO VASQUEZ [facility] 06/12/2024 VERITO BRENNANDOB: JEREMY STTel: ~[phone] (HP) Primary Insurance:MEDICAL MUTUALPolicy Number: [id number] Date:3553-70-61RE [address] [address]ML: VERITO VASQUEZ [facility] 06/12/2024 VERITO BRENNANDOB: JEREMY STTel: ~[phone] (HP) Primary Insurance:MEDICAL MUTUALPolicy Number: [id number] Date:5250-84-52AR [address] [address]QL: VERITO VASQUEZ [facility] 06/06/2024 VERITO BRENNANDOB: JEREMY STTel: ~[phone] (HP) Primary Insurance:MEDICAL MUTUALPolicy Number: [id number] Date:0071-32-27HR [address] [place] [address]LE: VERITO VASQUEZ [facility] 05/08/2024 [place] [address]Xuy: (HP) Primary Insurance:[facility] PFFSPolicy Number: [id number] Date:9788-77-40UZ [address] [place] [address]YI: Verito ValeraB: [id number] [place] [address]Drx: (HP) [facility] 05/08/2024 Secondary Insurance:Self PayPolicy Number: Effective Date:2024-05-08 [facility]07[facility]24 VERITO MERIDA: [place], [place] [address]Isp: (HP) Primary Insurance:MMO [facility] MEDICAREPolicy Number: [id number] Date:1578-89-91XR [address] [place] [address]UM: VERITO VALERAB: [id number] [place] [address]Kky: (HP) (WP) [facility] 03/07/2024 VERITO VALERAB: [place] [address]Xzg: (HP) Primary Insurance:MMOPolicy Number: [id number] Date:4645-68-23NH [address] [place] [address]GL: VERITO VALERAB: [id number] [place], [place] [address]Cct: (HP) (WP) [facility] 12/20/2023 VERITO VALERAB: [place], [place] [address]Jbm: (HP) Primary Insurance:[employer] MEDICARE ADVANTAGEPolicy Number: [id number] Date:2023-10-04 VERITO MERIDA: [id number] [place] [address] [facility] EPIC
[2024-12-01 12:04] LABS: Anion Gap 15.1; Blood Urea Nitrogen 10.0 mg/dL (7.0-18.0); Calcium 9.0 mg/dL (8.5-10.1); Carbon Dioxide 26.4 mmol/L (21.0-32.0); Chloride 103 mmol/L (98-107); Estimated GFR (African America >60 (>=60 mL/min/1.73m^2); Estimated GFR (Non-African Ame >60 (>=60 mL/min/1.73m^2); Glucose 87 mg/dL (74-106); Potassium 4.5 mmol/L (3.5-5.1); Sodium 140 mmol/L (136-145)
== END 2024-12-01 11:05 | disposition home or self-care (01) ==
LOC: LAB 11:04
PROVIDERS: PCP Family Medicine
DX: I50.22 Chronic systolic (congestive) heart failure (principal); R07.89 Other chest pain
CPT/HCPCS: 36415; 80048

== ENCOUNTER 2025-02-04 12:36 | Outpatient (OUT) | payer MEDICARE, SELFPAY ==
--- OUTSIDE RECORDS SUMMARY | 2025-01-21 07:15 | XMS_ITS | Continuity of Care Document ---
Author Organization [facility] Address [address] [place] [address] Phone Care Team Providers Care Licensing Specialist Name Role Phone Estefani Em MD Primary Care Provider Provider, Outside Attending Provider Unavailable Veronica Gonzalez APRN Attending Provider Estefani Em MD Attending Provider [phone] Care Teams Patient Care Team Team Status: Active Member Role/Relationship Status Dates Estefani Em MD Primary Care Provider Active Visit Care Team Team Status: Active Member Role/Relationship Status Dates Estefani Em MD Primary Care Provider Active Start: December 01, 2024 Outside ProviderAttending ProviderActiveStart: December 01, 2024 Visit Care Team Team Status: Inactive Member Role/Relationship Status Dates Estefani Em MD Primary Care Provider Active Start: January 18, 2025 End: January 18, 2025Pablo Wolff ProviderActiveStart: January 18, 2025 End: January 18, 2025 Patient Care Team Team Status: Inactive Member Role/Relationship Status Dates Estefani Em MD Primary Care Provider Active Start: January 21, 2025 End: January 21, 2025Estefani Em MDAttending ProviderActiveStart: January 21, 2025 End: January 21, 2025 Chief Complaint and Reason for Visit Chief Complaint Admit Date lump on chest January 18, 2025 1:42pm developed lump between breast January 032024 11:38am Reason for Visit Admit Date Folliculitis January 18, 2025 1:42pm Lipoma of anterior chest wall January 032024 1:42pm Reason for Referral Type Reason(s) Provider Provider Contact Information P carynder Address Start Date Lipoma of anterior chest wall D17.1 - Benign lipomatous neoplasm of skin and subcutaneous tissue of dpptuS31.1 - Benign lipomatous neoplasm of skin and subcutaneous tissue of trunkMichael Tunde Madrid MD FACSWork Phone: [phone] [place] [address]Lgbmnbtq 2024 Allergies, Adverse Reactions, Alerts Allergen Type Severity Reaction Last Updated Verified Status Penicillins Allergy Unknown Unknown Reaction Novembe r 2024 11:42am Yes Active prednisone Allergy Unknown rash January 21, 2025 11:42am Yes Active Social History Smoking Status Status Start Date End Date Date of Observa tion Smokes tobacco daily (finding) January 18, 2025 1:50pm Observation Status Observation Response Date of Response Legal Sex Female (finding) Sex Assigned At BirthFemaleDecember 1964 Family History Relationship Condition Age at Onset Recorded Date/T geoff brother Heart disease Unknown Diabetes mellitusUnknownbrotherDiabetes mellitusUnknownmotherMalignant neoplasm UnknownDiabetes mellitusUnknownmotherDiabetes mellitusUnknown Problems Active Problems Problem Diagnosis/Recorded Date Onset Date Status C omments Arthritis of right acromioclavicular joint August 28, 2023 12:30pm Unknown Active Rotator cuff syndrome of right shoulderApril 2023 12:47pmUnknownActive HematuriaMarch 2024 10:58amUnknownActiveAnxietyApril 2023 1:22pm UnknownActiveDysuriaMarch 2024 2:21pmUnknownActiveFolliculitisNovember 2024 2:37pmUnknownActiveChronic systolic heart failureApril 2023 1:22pmUnknownActiveLipoma of anterior chest wallNov2024 2:37pm UnknownActiveWeight gainMarch 2024 10:58amUnknownActiveRight shoulder pain June 22, 2023 10:59amUnknownActiveBiceps tendonitis on rightApril 2023 12:45pmUnknownActiveBronchitisMay 2024 7:18amUnknownActiveHTN (hypertension)May 23, 2024 10:57amUnknownActiveInactive/Resolved Problems Problem Diagnosis/Recorded Date Onset Date Status C omments Lumbar radiculopathy, acute February 24, 2021 10:44am Unknown Resolved Prob manjeet List clean-up per request of Phys. EHR Cmte Medications Medication Status Dose Units Route Directions Qty Days Refills S tart Date Stop Date End Date Reason(s) Instructions Adherence Sertraline 25 mg tablet Discontinued 25 MG PO Sendy ly 90 0May 2023 11:06amJuly 2023 11:32amSertraline 25 mg tablet Ckbpznpaysnh94JFKXMomhr878Xsgw 2023 11:32amNovember 2023 12:30pm Sertraline 25 mg demscbSlamyrkxqvqm44CQRJKeugm418Zuamepqe 4th, 2024 12:30pm January 07, 2024 1:45pmSertraline 25 mg smpvlmUlcquwhlnexq98BYFGPagys140 January 07, 2024 1:45pmMarch 2024 7:29amSertraline 25 mg tablet Ckubyewuiskw07QUHVGxqou170Vzxwn 2024 7:29amJune 2024 12:04pm Azithromycin 250 mg blaiwdMssofqkwlegh6MG.SLRGMWN97Sum 2024 11:00pm January 18, 2025 1:43pmFor 250 mg dose pack: take 500 mg today (day 1), then 250 mg for 4 days (days 2-5) POSertraline 25 mg rpdyjaEvvvpfuwaqzn44MGOIKsirx228 August 22, 2024 12:04pmSeptember 2024 8:17amAlbuterol Sulfate 90 mcg/actuation HFA aerosol xjowpljCttgev9NWGDRSJIMOSSOKHslyk 4 hours as needed for shortness of breath or wheezing6.73Se2024 1:19pmComplies with drug therapySertraline 25 mg hlqtcoWcfrai31PBTCShnss029Jwmfrrtgr 18th, 2025 8:17amComplies with drug therapyTizanidine 4 mg aoxptyUqtgia5UVMXQnggg as needed for PainDecember 2020 12:00amComplies with drug therapyHydrocodone- Acetaminophen 5-325 mg pdosehGvhdmbcmnvss9UCMHKGcplq times daily as needed for PainDecember 2020 12:00amMarch 2024 10:55amPrednisone 50 mg tablet Bsffdpabrbuv53SGAZEdlyo187Zxyjdoez 2020 12:00amApril 2023 10:31am Sacubitril-Valsartan (Entresto) 24-26 mg alrtfeFqlyshirieoz9QXMUQDshzyXtmpz 2023 11:00pmApril 2023 10:31amFreeTextSi tablet Orally daily; Note: Source Status: Taking; Provider: Manav Jara ( )Loratadine 10 mg urhsxqHryqvo4KSDRCNebfrHrexg 2023 11:00pmFreeTextSi tablet Orally Once a day; Note: Source Status: Taking; Provider: Manav Jara ( )Complies with drug therapyAlbuterol Sulfate 90 mcg/actuation HFA aerosol mhspfrlLbsokeccqamp3LKPMFTVIQTRLIPEfvqe 4 hoursApril 2023 11:00pm July 14, 2024 1:18pmFreeTextSi puff Inhalation every 4 hrs prn; Note: Source Status: Start; Refills: 0; Qty: 1 Each; Provider: Manav Wisdom Gabapentin 300 mg ouawdvgAvndejgsfier591UYVDFygqz times dailyApril 2023 11:00pmApril 2023 12:37pmFreeTextSi capsule Orally three times daily; Note: Source Status: Taking; Provider: Manav Jara ( )Aspirin 81 mg tablet,delayed release (DR/EC)Cxqwxq64MPQXXqljzOufzh 2023 11:00pm FreeTextSi tablet Orally Once a day; Note: Source Status: Taking; Provider: Manav Jara ( )Complies with drug therapyMetoprolol Succinate 50 mg tablet extended release 24 xiUnhusjgbxqup58TKANIdfshCdjfb 2023 11:00pm January 21, 2025 12:10pmFreeTextSi tablet Orally Once a day; Note: Source Status: Taking; Provider: Manav Jara ( )Atorvastatin 20 mg stuuokCdntwn2MMVWJFmsaxBeccw 2023 11:00pmFreeTextSi tablet Orally Once a day; Note: Source Status: Taking; Provider: Manav Jara ( ) Complies with drug therapyBenzonatate 200 mg dlxkumoEildnddllqgz0ZXWAPAxfym times dailyApril 2023 11:00pmApril 2023 10:30amFreeTextSi capsule Orally Three times a day; Note: Source Status: Taking; Refills: 0; Qty: 30 Capsule; Provider: Manav Jara EAlprazolam 0.25 mg tabletDiscontinued0.25MG PODailyApril 2023 11:00pmApril 2023 10:44amFreeTextSi tablet Orally daily prn; Note: Source Status: Taking; Refills: 0; Qty: 30 Tablet; Pro vider: Manav Jara ESacubitril-Valsartan (Entresto) 24-26 mg phwfauCgvmwd4GBNYK Twice dailyApr2023 10:31amFreeTextSi tablet Orally daily; Note: Source Status: Taking; Provider: Manav Jara ( )Complies with drug therapySertraline 25 mg lafhtaDtguaqbnvipd34EGSSJltvw488Rtehg 2023 11:00pmMa2023 11:07amSulfamethoxazole-Trimethoprim 800-160 mg tablet Zglcbxznrckm4UTFGXLxmnj chych959Xrubm 2024 12:00amMarch 2024 10:50am Famotidine (Pepcid Ac) 20 mg vhgupwQhkgdd56OQMBWnzdiEfkbzvqr 16th, 2025 12:00am Complies with drug therapyDoxycycline Hyclate 100 mg tarqnehUqfycv435OOXUWnsya whfcr39616Rovfwrit 16th, 2025 12:00amComplies with drug therapyMetoprolol Succinate 50 mg tablet extended release 24 aiKpkvgc84SVPHSvnfy dailyJanuary 2024 12:10pmFreeTextSi tablet Orally Once a day; Note: Source Status: Taking; Provider: Manav Jara ( )Complies with drug therapy Albuterol Sulfate 90 mcg/actuation HFA aerosol orywdoqMavanlrhkkvk3WCVA INHALATIONEvery 4 hours as needed for shortness of breath or wheezing6.70May 2024 1:18pmSeptember 2024 1:19pm Relevant Diagnostic Tests and/or Laboratory Data Laboratory Results Test Collection Date/Time Result Date/Time Result Interpretation Reference Range Result Comment Performing Site Anion Gap December 01, 2024 10:16am December 01 10:16am 15.1 BUN/Creatinine RatioSeptember 2024 10:16amSept2024 10:16am12.7 Blood Urea NitrogenSeptember 2024 10:16amSept2024 10:16am10.0 mg/dL7.0-18.0Calcium LevelSeptember 2024 10:16amSept2024 10:16am9.0 mg/dL8.5-10.1Chloride LevelSeptember 2024 10:16amSept2024 10:13iq197 mmol/X32-292Spekna Dioxide LevelSeptember 2024 10:16amSept2024 10:16am26.4 mmol/L21.0-32.0CreatinineSept2024 10:16amSept2024 10:16am0.79 mg/dL0.55-1.02Estimated GFR ()December 01, 2024 10:16amSept2024 10:16am>60 >=60 mL/min/1.73m 2Estimated GFR (Non- AmericanSept2024 10:16amSept2024 10:16am>60>=60 mL/min/1.73m 2Glucose LevelSeptember 2024 10:16amSept2024 10:16am87 mg/aA48-468Mkklchqpl Level December 01, 2024 10:16amSept2024 10:16am4.5 mmol/L3.5-5.1Sodium LevelSept2024 10:16amSept2024 10:29dz085 mmol/W322-107 Vital Signs Vital Reading Result Reference Range Collection Date/Time Height 70 [in_i] January 18, 2025 1:95phAtwgua591.93 kgJanuary 18, 2025 1:44pmBody Xcbaktzrfqe21.1 [degF]97.6-99.0January 18, 2025 1:44pmHeart Rate80 /qxp56-729 January 18, 2025 1:44pmRespiratory rate16 /fxv11-85RdsnvkvaJanuary 18, 2025 1:44pm Oxygen saturation by Pulse oqkoznbi42 %95-100January 18, 2025 1:44pmBP Awqoblli665 mm[Hg]100-140January 18, 2025 1:44pmBP Wlkbecjvl49 mm[Hg]60-100 January 18, 2025 1:44pmBMI (Body Mass Index)37.3 kg/f4Mnkqucdg2024 1:85dxTxurpw74 [in_i]January 21, 2025 11:82wfLniahh231.11 [facility] 11:39amHeart Rate80 /wpz91-701YcvhgixdJanuary 21, 2025 11:39amBP Zuewjqua585 mm[Hg]100-140January 21, 2025 11:39amBP Pbvsvxdwv39 mm[Hg]60-100January 21, 2025 11:39amBMI (Body Mass Index)36.7 kg/f3OgnaswzhJanuary 21, 2025 11:39am Advance Directives Advance Directive Response Recorded Date/ Time Advance Directives No February 8:11am Insurance Providers Guarantor Verito Brennan Address [address] [facility] [address]Oxzdyvd Info.Home Phone: Coverage Status Update:2024 Payer Group Member ID Coverage Type Subscriber Relationship to Subscriber Effective Date Expiration Date MMO Id: [id number] Missler Id: [id number] [address] [facility] [address] Home Phone: Email: [email or web address] MCR Adv PFFS [id number] Missler Id: [id number] [address] [facility] [address] Home Phone: Email: [email or web address] Id: [id number] Missler Id: [id number] [address] [facility] [address] Home Phone: Email: [email or web address] Encounters Encounter Location(s) Arrival/Admit Date Discharge/Departure Date Discharge/Departure Disposition Provider(s) Non-patient / Non-visit -[facility] December 01, 2024 11:16am Outside ProviderDeparted Physician/Provider Office Visit-[facility] January 18, 2025 1:42pmNov2024 2:17pmDischarged to home care or self care (routine discharge)Tahmina Bethea APRNDeparted Physician/Provider [facility] 11:38amNoveer 2024 12:14pmDischarged to home care or self care (routine discharge)Estefani Em MD Recent Diagnosis Onset Date Admit Date Folliculitis Unknown January 18, 2 025 1:42pm Lipoma of anterior chest wall Unknown No vember 2024 1:42pm Assessments Diagnosis Onset Date Resolution Status Admit Date Folliculitis acuteJanuary 18, 2025 1:42pmLipoma of anterior chest wallacuteJanuary 18, 2025 1:42pm Plan of Treatment Author Veronica Gonzalez [facility]January 18, 2025 2:38pmDiscussed with patient differential of suspicion for lipoma versus cyst to left chest area. Has had a bump in area that has not previously been swollen or tender for 10+ years. Discussed would recommend follow-up with general surgery for possible removal and further diagnosis. Will place referral. May use warm compresses, Tylenol/ibuprofen. Covering with antibiotic for folliculitis to bra line area as well. Will treat with doxycycline. Keep area clean with soap and water. Follow-up with PCP if not gradually improving over the next 4 to 5 days, sooner if significantly worsening or new onset fevers. Future Tests Future scheduled test information is unavailable Pending Tests Pending diagnostic test information is unavailable Future Visits Future appointment information is unavailable Future Procedures Future procedure information is unavailable Future Medications Future medication information is unavailable Patient Instructions Patient instructions are unavailable
--- OUTSIDE RECORDS SUMMARY | 2025-02-04 12:46 | XMS_ITS | Clinical Summary ---
Author Organization [facility] Address [address] [place], [place] [address] Care Team Providers Care Air Deodorizer Servicer Name Role Phone Estefani Em MD Primary Care Provider [phone] Allergies Active AllergyReactionsCriticalityNoted FpqmTxqedkhqCnhsgbemqznSdlvghf59/03/2015 Medications MedicationSigDispense QuantityRefillsLast FilledStart DateEnd DateStatus diphenhydrAMINE (SLEEP AID, DIPHENHYDRAMINE,) 25 mg capsule Take 25 mg by mouth at bedtime as needed.Active Ibuprofen (MOTRIN) 100 mg tablet Take 800 mg by mouth every 8 hours as needed.Active ibuprofen (MOTRIN) 600 mg tablet Take 1 tablet by mouth three times daily as needed for Pain. 90 tablet ctive Active Problems ProblemNoted DateDiagnosed DateBack painFracture Overview (01/05/2015): L1-L2 PER PATIENT Smoker Family History Medical HistoryRelationCommentsDiabetesFatherHypertensionFatherCancerMother RelationStatusCommentsFatherMother Social History Tobacco UseTypesPacks/DayYears UsedDateSmoking Tobacco: Every DayCigarettes0.815 Alcohol UseStandard Drinks/WeekCommentsNo0 (1 standard drink = 0.6 oz pure alcohol)CommentsNoSex and Gender InformationValueDate RecordedSex Assigned at BirthNot on fileLegal HojMokwru36/08/2015 9:13 AM EDTGender Identity Not on fileSexual OrientationNot on fileOccupationIndustryJob Start DateJob End Datewhirlpool , realtorNot on fileNot on fileNot on file Last Filed Vital Signs Vital SignReadingTime TakenCommentsBlood Vrocdlzs057/6111 9:17 AM EST Pusgj9379 9:17 AM ESTTemperature--Respiratory Oeyl026503/29/2014 9:17 AM ESTOxygen Saturation--Inhaled Oxygen Concentration--Htwzwe60.9 kg (185 lb) 01/27/2015 9:17 AM LPRBzktim823.8 cm (5' 10 )01/27/2015 9:17 AM ESTBody Mass Index26.5401/27/2015 9:17 AM EST Plan of Treatment Health MaintenanceDue DateLast DoneCommentsAnxiety Xdngdidhh79/17/1982Depression Ahhlpjbpq50/17/1982HIV Evmjhclup07/17/1982Hepatitis C Rmkfmyfwb05/17/1982 DTaP,Tdap,Td Vaccine (1 - Tdap)02/18/1983Cervical Cancer Rckzowspu47/17/1985 Mammogram Fdnvkcpci82/17/2004CT Ufgfqfhwmvcx56/17/2009Cologuard (FIT-DNA) 02/18/20097134Vsbrcredrum69/17/2009Colorectal Cancer Gfugdrtuy18/17/2009Diabetes Zbiafziws50/17/2009Fecal Occult Blood02/18/2009Lipid Tpruuyyco45/17/2009 Hcncrqadxevic55/17/2009Pneumococcal Vaccine: 50+ (1 of 1 - PCV)02/18/2014 Shingrix Vaccine (1 of 2)02/18/2014Covid-19 Vaccine (1 - season) 2024Influenza Vaccine (#1)2024RSV Vaccine (1 - 1-dose 75+ series) 02/18/2039 Care Teams Team MemberRelationshipSpecialtyStart DateEnd Date Estefani Em MD [address] [place] [id number] PCP - GeneralFamily Pibxjxcn32/14/15
--- OUTSIDE RECORDS SUMMARY | 2025-02-04 12:46 | XMS_ITS | Clinical Summary ---
Author Organization [facility] Address [address] [place] [address] Care Team Providers Care Business Unit Controller Name Role Phone Estefani Em MD Primary Care Provider [phone] Allergies Active AllergyReactionsCriticalityNoted DateCommentsPenicillinsNausea and wlkukjzdUnn81/03/2015 headache NnwquuunxuHuafKye74/26/2023 Medications MedicationSigDispense QuantityRefillsLast FilledStart DateEnd DateStatus loratadine 10 mg Tab 10 mg, pseudoePHEDrine 120 mg TbER 120 mg Take by mouth as needed .Active diphenhydrAMINE (BENADRYL) 25 mg tablet Take 1 (one) tablet (25 mg total) by mouth nightly as needed for sleep .Active ALPRAZolam (XANAX) 0.25 MG tablet Take 1 (one) tablet (0.25 mg total) by mouth 3 (three) times a day as needed . 08/04/2021ctive HYDROcodone-acetaminophen (NORCO) 5-325 mg per tablet Take by mouth every 6 (six) hours .Active acetaminophen (TYLENOL) 500 MG tablet Take 1 (one) tablet (500 mg total) by mouth every 6 (six) hours as needed for pain .Active albuterol (Ventolin HFA) 90 mcg/actuation inhaler Inhale 2 (two) puffs every 4 to 6 hours as needed for wheezing or shortness of breath . 18 g 4Active aspirin 81 mg chewable tablet Chew and Swallow 1 (one) tablet (81 mg total) daily . 90 tablet 4Active sertraline (ZOLOFT) 25 MG tablet Take 1 (one) tablet (25 mg total) by mouth daily .Active naloxone (NARCAN) 4 mg/actuation [place] Administer 1 spray into one nostril for known or suspected opioid overdose. If patient worsens or does not respond, may repeat in 2-3 minutes. . 2 each 5Active atorvastatin (LIPITOR) 20 MG tablet Take 1 (one) tablet (20 mg total) by mouth daily . 90 tablet 507/6Active metoprolol succinate (TOPROL-XL) 50 MG 24 hr tablet Indications:Chronic systolic HF (heart failure) (HCC)Take 1 (one) tablet (50 mg total) by mouth daily . 90 tablet 5Active sacubitriL-valsartan (ENTRESTO) 49-51 mg per tablet Take 1 (one) tablet by mouth 2 (two) times a day . 180 tablet 5Active Active Problems ProblemNoted DateDiagnosed ImndHdnnuhwmgo76/07/2023Failed back syndrome, oeuamedlevy24/26/2023 Assessment & Plan (07/26/2022 2:57 PM EDT): 08/01/2022 0850 Scheduled Edgar Dhaliwal MD Bilateral Insertion Trial Spinal Cord Stimulator via Fluoroscopic T12-L2 Approach Cfjepboaw51/29/1172Jifbers73/31/2022 Assessment & Plan (01/02/2022 10:41 AM EDT): Okay to take her as needed Xanax morning of surgery if needed. Ogwdbliacamt43/23/2022 Assessment & Plan (07/26/2022 2:58 PM EDT): BP Readings from Last 3 Encounters: 07/26/22 133/76 06/28/22 130/75 06/05/22 119/72 Blood pressure is well controled. Take metoprolol morning of surgery with sip of water. Assessment & Plan (01/02/2022 10:37 AM EDT): Blood pressure well controlled HFrEF (heart failure with reduced ejection fraction)07/25/2021 Assessment & Plan (07/26/2022 3:03 PM EDT): Patient was found to have a new LBBB in [facility] last year and was sent to cardiology. She underwent an echocardiogram which revealed systolic HF with and EF of 35%. She then underwent nuclear stress testing which revealed large septal and apical infarcts with no stress-induced ischemia. However given her cardiomyopathy and prior possible infarcts she did undergo a left heart catheterization since thelast clinic visit which revealed nonobstructive coronary artery disease. LVEF on left heart catheterization was 45%. She then underwent repeat echocardiogram which revealed recovery of LVEF to 50 to 55%. She is currently on entresto. Assessment & Plan (01/02/2022 10:40 AM EDT): This was diagnosed a few months back, she was sent to cardiology by the [facility] department for an abnormal EKG with preop work-up. Echocardiogram revealed chronic systolic heart failure with an EF of 45%; EF is now 50 to 55% with medical management per cardiology. She denies any cardiac symptoms. Pre-op exam07/04/2021 Assessment & Plan (07/26/2022 3:05 PM EDT): She has a Guillermo perioperative risk score which indicates a 0.1% risk for intraoperative cardiac complications for 30 days postoperatively. Anesthesia risk factors include obesity and chronic systolicheart failure which is being managed appropriately. She denies any cardiac symptoms including chestpain, shortness of breath, dizzy spells, orthopnea, or syncopal episodes. She denies any prior anesthesia related complications. Preoperative sleep apnea risk assessment score is 0/3, indicating no risk factors. ?? Apfel score is 3, suggesting moderate risk for post operative nausea and vomiting. ?? The patient has undergone multiple surgeries in the past, patient reports all of which were uneventful from a cardiac and anesthesia standpoint. ?? Assessment & Plan (01/02/2022 10:45 AM EDT): Verito is scheduled to undergo intermediate risk surgery under general anesthesia. She has a Guillermo perioperative risk score which indicates a 0.1% risk for intraoperative cardiac complications for30 days postoperatively. Anesthesia risk factors include obesity and chronic systolic heart failurewhich is being managed appropriately. She denies any cardiac symptoms including chest pain, shortness of breath, dizzy spells, orthopnea, or syncopal episodes. Per cardiac preop exam, she is she is an acceptable cardiac risk to proceed with planned surgery. She denies any prior anesthesia related complications. Preoperative sleep apnea risk assessment score is 0/3, indicating no risk factors. ?? Apfel score is 3, suggesting moderate risk for post operative nausea and vomiting. ?? The patient has undergone multiple surgeries in the past, patient reports all of which were uneventful from a cardiac and anesthesia standpoint. ?? Assessment & Plan (07/04/2021 9:57 PM EDT): Patient presents for medical risk stratification prior to surgery. She has a Revised Cardiac Risk Index of 1 based on intermediate risk surgery. She describes a greater than 4 mets of functional capacity without symptoms of chest pain. She does endorse mild shortness of breath with activity due to being out of shape and back pain. She denies any dizziness, syncope, presyncope or light headedness, however does state in April when she was getting epidural injections she experienced dizzinessat that time. EKG today shows new left bundle branch block. She does not recall ever having an EKG in the past. Scheduled her for preoperative cardiac clearance prior to surgery for 07/05/21 @10:[address] Sandoval.Appreciate cardiology input for further risk stratification. Preoperative sleep apnea risk assessment score is 0/3, indicating no risk factors. Apfel score is 3, suggesting moderate risk for post operative nausea and vomiting. The patient has undergone multiple surgeries in the past, patient reports all of which were uneventful from a cardiac and anesthesia standpoint. Abnormal EKG007/04/2021 Assessment & Plan (07/04/2021 9:59 PM EDT): EKG today with new left bundle branch block. See above not. Preoperative cardiac evaluation recommended prior to surgery. Obesity (BMI 30.0-34.9)07/04/2021 Assessment & Plan (07/26/2022 3:04 PM EDT): Body mass index is 33.43 kg/m??. Assessment & Plan (01/02/2022 10:40 AM EDT): BMI 32.28 Assessment & Plan (07/04/2021 10:00 PM EDT): Body mass index is 31.85 kg/m??. Lumbar disc herniation with qnxfxmguybunq55/21/2022 Assessment & Plan (01/02/2022 10:41 AM EDT): She is scheduled to undergo Right L2-3 Minimally Invasive Hemilaminectomy, Foraminotomy, and Discectomy On 01/13/[address] Dhaliwal. Tobacco abuse05/23/2021 Assessment & Plan (07/26/2022 3:03 PM EDT): Current every day smoker, cessation is advised. Assessment & Plan (01/02/2022 10:40 AM EDT): Patient admits to smoking 1 to 2 cigarettes/day Assessment & Plan (07/04/2021 9:58 PM EDT): Current every day smoker. Cessation is advised. Encounters DateTypeDepartmentCare TsnlMbnyhrziswv46/13/2025Refill [facility] [address], 3rd [place] [address] Tamie Enrique MA Medication Lfeyxx3812/01/20240168Szerkj52/12/2025Results Follow-Up [facility] [address], 3rd [place] [address] Hannah Sandoval MD Ambulatory ECG Event Monitor, CT CCTA HEART (REFUND CLERK READ), CT CCTA Heart With And Without Contrast, Echocardiogram completefrom Last 3 Months Family History Medical HistoryRelationCommentsAtrial fibrillationBrotherDiabetesBrotherHeart diseaseBrotherAtrial fibrillationFatherDiabetesFatherAtrial fibrillationMaternal AuntDiabetesMotherMultiple myelomaMotherRelationStatusCommentsBrotherAliveFather AliveMaternal AuntAliveMotherAlive Social History Tobacco UseTypesPacks/DayYears UsedDateSmoking Tobacco: Every DayCigarettes Smokeless Tobacco: Never Tobacco Cessation:Ready to Q uit: Not Asked; Counseling Given: Not Answered Comments:smokes 1-2 cigarettes once in a while during stressful times. Alcohol UseStandard Drinks/WeekCommentsNot Currently0 (1 standard drink = 0.6 oz pure alcohol)occCommentsNoSex and Gender InformationValueDate Recorded Sex Assigned at BirthNot on fileLegal IfzQmlinf17/16/2021 3:24 PM ESTGender IdentityNot on fileSexual OrientationNot on file Last Filed Vital Signs Vital SignReadingTime TakenCommentsBlood Tmjexodl404/7908 11:36 AM EDT Ugdry672610/29/2024 11:36 AM AQIHrzmoufpyog84.6 ??C (97.8 ??F)10/29/2024 9:38 AM EDTRespiratory Atqq114810/29/2024 9:38 AM EDTOxygen Veixbyjpnx16%10/29/2024 11:36 AM EDTInhaled Oxygen Concentration--Zyzjjt592 kg (238 lb)06/19/2023 1:34 PM EDT Hhsgxm024.8 cm (5' 10 )10/06/2024 10:49 AM EDTBody Mass Index34.15006/19/2023 1:34 PM EDT Plan of Treatment Health MaintenanceDue DateLast DoneCommentsCT Tjdmtucdlspg1964Colonoscopy 1964Colorectal Cancer Screening/Tnrrxmytoq1964Fecal DNA1964 Fecal occult blood test (FOBT,FIT)1964MMR Vaccines (1 of 1 - Standard series)02/18/1965Medicare Wellness Visit02/18/1967Depression Screening/Follow-Up (PHQ-2/9)1976HIV Cjtvpgxzb05/17/1979Hepatitis C Mppeuzyed43/17/1982 Pneumococcal Vaccine: 50+ Years (1 of 2 - PCV)02/18/1983 Tetanus/Diphtheria/Pertussis (1 - Tdap)02/18/1983Pap Smear02/18/1985Cervical Cancer Nripighrx62/17/1994HPV/Tehrpi4902/18/19949832Zwrqbyguf69/17/2004Flexible cpfjpgcmudgze44/17/2014RSV Vaccines (1 - Risk 50-74 years 1-dose series) 02/18/2014Zoster Vaccines (1 of 2)02/18/2014COVID-19 Vaccine ( - 2024- season)512/12/2020, 06/25/2020, 05/28/2020Influenza Vaccine (#1) 2024HIB VaccinesAged OutNo longer eligible based on patient's age to complete this topicHPV VaccinesAged OutNo longer eligible based on patient's age to complete this topicHepatitis A VaccinesAged OutNo longer eligible based on patient's age to complete this topicHepatitis B VaccinesAged OutNo longer eligible based on patient's age to complete this topicIPV VaccinesAged OutNo longer eligible based on patient's age to complete this topicMeningococcal ACWY VaccineAged OutNo longer eligible based on patient's age to complete this topic Meningococcal B VaccineAged OutNo longer eligible based on patient's age to complete this topicRotavirus VaccinesAged OutNo longer eligible based on patient's age to complete this topic Medical Devices ImplantedTypeAreaManufacturerDevice IdentifierShelf Expiration DateModel / Serial / LotSealant 10ml Hemostatic Matrix Fast Prep Floseal - Sna Implanted:Qty: 1 [facility] LumbarBAXTER [id number] / NA / [id number] 4 X 8in Surgicel - Sna Implanted:Qty: 1 on 01/13/2022 [facility]: [facility]ine [id number] / NA / [id number] 2 X 4in Surgicel Fibrillar - Sna Implanted:Qty: 1 on 01/13/2022 [facility]: [facility]ine [id number] / NA / [id number] 8 X 12.5cm X 10mm Surgifoam Gelatin Sponge - Sna Implanted:Qty: 1 on 01/13/2022 [facility]: Spine [id number] / NA / [id number] 8ml Matrix Hemostatic W/Thrombin Surgiflo - Sn/A Implanted:Qty: 1 on 08/24/2022 by Edgar Dhaliwal MD at [facility] UbfwngunTHGURAE62/31/[id number] / N/A / [id number] Neurostimulator Implantable Xr5 Proclaim - [id number] Implanted:Qty: 1 on 08/24/2022 by Edgar Dhaliwal MD at [facility] SC04//[id number] / [id number] / N/ADescription:MRI system type 1.5T cylindrical-bore magnet, horizontal field orientation WARNING: Only use [...] been tested and could increase the risk ofinduced stimulation or heating of the neurostimulator. Spatial field gradient Maximum spatial fieldgradient of 30 T/m (3000 G/cm) Patient position [...] heating, stimulation, or vibration is experienced. Lead 60cm Penta - [id number] Implanted:Qty: 1 on 08/24/2022 by Edgar Dhaliwal MD at [facility] ThoracicST BRANDI [id number] / [id number] / N/ADescription:MRI system type 1.5T cylindrical-bore magnet, horizontal field orientation WARNING: Only use [...] been tested and could increase the risk ofinduced stimulation or heating of the neurostimulator. Spatial field gradient Maximum spatial fieldgradient of 30 T/m (3000 G/cm) Patient position [...] patient injury. NOTE: During the MRI scan, visuallyand audibly monitor the patient, including verbal communication. Instruct the patient to notify MR personnel immediately if any discomfort, pain, heating, stimulation, or vibration is experienced. Lead tip at T8 Hemostat 2 X 4in Surgicel Fibrillar - Sn/A Implanted:Qty: 1 on 08/24/2022 by Edgar Dhaliwal MD at [facility] [id number] / N/A / [id number] 4 X 8in Surgicel - Sn/A Implanted:Qty: 1 on 08/24/2022 by Edgar Dhaliwal MD at [facility] [id number] / N/A / [id number] 8 X 12.5cm X 10mm Surgifoam Gelatin Sponge - Sn/A Implanted:Qty: 1 on 08/24/2022 by Edgar Dhaliwal MD at [facility] HvasuufaEOSJYUL90//[id number] / N/A / [id number]ghubfOjtvve IdentifierShelf Expiration DateModel / Serial / LotLead 60cm Perc Octrode Trial - [id number] Implanted:Qty: 1 on 08/01/2022 by Edgar Dhaliwal MD at [facility]/A: Spine ThoracicST BRANDI SC04/24/02203050 / [id number] / NALead 60cm Perc Octrode Trial - [id number] Implanted:Qty: 1 on 08/01/2022 [facility]: Spine ThoracicST BRANDI SC06/28/00285957 / [id number] / NA Procedures Procedure NamePriorityDate/TimeAssociated DiagnosisCommentsAMBULATORY ECG OKLLOPHTwowmsj60/08/2025 12:00 AM EDT Palpitations from Last 3 Months Results * Ambulatory ECG Event Monitor (11/10/2024 12:00 AM EDT)Specimen (Source) Anatomical Location / LateralityCollection Method / VolumeCollection Time Received Time509/10/2024 Narrative [facility] - 11/14/2024 12:48 PM EDT EVENT MONITOR: 29 day(s), commencing on Oct. INDICATION: Palpitations FINDINGS: The primary rhythm was sinus rhythm with an average heart rate of 87 bpm (63 - 144 bpm). There was a 1% burden of PACs and a ??1% burden of PVCs. Symptoms associated with sinus rhythm Procedure Note Ricci Gilliam MD - 11/14/2024 EVENT MONITOR: 29 day(s), commencing on Oct. INDICATION: Palpitations FINDINGS: The primary rhythm was sinus rhythm with an average heart rate of 87 bpm(63 - 144 bpm). There was a 1% burden of PACs and a 1% burden of PVCs. Symptoms associated with sinus rhythm Authorizing ProviderResult TypeResult StatusVirjorgeelmer Sandoval [facility] ORDERABLESFinal ResultPerforming OrganizationAddressCity/State/ZIP Code Phone Number [facility] from Last 3 Months Insurance Advance Directives For more information, please contact: [phone] * Full Code (Latest Code Status on File) Date ActivatedDate InactivatedComments08/24/2022 2:45 PM08/25/2022 3:50 PM * Full Code Date ActivatedDate InactivatedComments08/23/2021 9:22 AM08/23/2021 10:20 AM Care Teams Team MemberRelationshipSpecialtyStart DateEnd Date Estefani Em MD [facility] [place] [address] PCP - GeneralFamily Lebibinm28/16/21
--- OUTSIDE RECORDS SUMMARY | 2025-02-04 12:46 | XMS_ITS | Clinical Summary ---
Author Organization [facility] Address [address] [place] [address] Care Team Providers Care Sales Representative Adding Machines Name Role Phone Estefani Em MD Primary Care Provider [phone] Medications No known medications Active Problems No known active problems Social History Tobacco UseTypesPacks/DayYears UsedDateSmoking Tobacco: Unknown Tobacco Cessation:Counseling Given: Yes Alcohol UseStandard Drinks/WeekCommentsDefer0 (1 standard drink = 0.6 oz pure alcohol)CommentsUnknownSex and Gender InformationValueDate RecordedSex Assigned at BirthNot on fileLegal MmvWzaqcg08/15/2023 6:39 PM EDTGender Identity Not on fileSexual OrientationNot on file Last Filed Vital Signs Vital SignReadingTime TakenCommentsBlood Igvffkgd909/7710 10:43 AM EDT Uzpjl998512/20/2023 10:43 AM EDTTemperature--Respiratory Qkry222411/22/2023 12:08 PM EDTOxygen Saturation--Inhaled Oxygen Concentration--Qlzhxs745 kg (221 lb) 12/20/2023 10:43 AM MDKJymcmn548.8 cm (5' 10 )12/20/2023 10:43 AM EDTBody Mass Index31.7112/20/2023 10:43 AM EDT Plan of Treatment Not on file Insurance Care Teams Team MemberRelationshipSpecialtyStart DateEnd Date Estefani Em MD PCP - GeneralFamily Medicine10/11/23
--- OUTSIDE RECORDS SUMMARY | 2025-02-04 12:52 | XMS_ITS | CCD ---
Author Organization [facility] Care Team Providers Care Renewals Specialist Name Role Phone Clair Dahl MD Primary Care Provider [phone] Kareem Lagunas Unavailable Clair Dahl MD Primary Care Provider Clair Dahl MD Primary Care Provider Clair [...] JEAN Consulting Unavailable SAMMIE ARTHUR Consulting Unavailable SARAH JEAN Admitting Unavailable SARAH JEAN Attending Unavailable DAVENPORT, DR ALONSO Shelley Consulting Unavailable NABILA, DR CLAIR Wisdom Primary Care Unavailable SARAH JEAN Consulting Unavailable MD Clair Dahl Primary Care Provider DO Tuan Gonzalez Attending Provider [phone] Clair Dahl MD Primary Care Provider [phone] GIOVANI MARIA Attending Unavailable GIOVANI MARIA Attending Unavailable GIOVANI MARIA Attending Unavailable GIOVANI MARIA Attending Unavailable GIOVANI MARIA Attending Unavailable Tuan Gonzalez Admitting Unavailable Tuan Gonzalez Attending Unavailable Nabila Clair E Primary Care Unavailable Nabila Clair E Admitting Unavailable Nabila Clair E Attending Unavailable Clair Dahl MD Attending Provider CLAIR DAHL Primary Care Physician WILL HARTLEY Attending Unavailab janice HARTLEY, WILL Wisdom Admitting Unavailab janice HARTLEY, WILL Wisdom Attending Unavailab Justin Alvarez Attending Unavailable CAROLINE CARRION Attending Unavailable NABILA, CLAIR E Primary Care Unavailable ARMAND VIRENKJULITO Stoddard Attending Unavailable NABILA CLAIR E Primary Care Unavailable TAMIE ENRIQUE Attending Unavailable NABILA CLAIR E Primary Care Unavailable TAMIE ENRIQUE Attending Unavailable NABILA CLAIR E Primary Care Unavailable ACUNA, VIRENKUMAR M. Referring Unavailable ACUNA, VIRENKUMAR M. Admitting Unavailable NABILA, CLAIR E Primary Care Unavailable NABILA CLAIR E Primary Care Unavailable ACUNA, VIRENKUMAR M. Referring Unavailable ACUNA, VIRENKUMAR MBan Attending Unavailable NABILA CLAIR E Primary Care Unavailable ACUNA, VIRENKUMAR M. Referring Unavailable ACUNA, VIRENKUMAR M. Attending Unavailable CAROLINE CARRION Referring Unavailable CAROLINE CARRION Attending Unavailable DAHL, CLAIR E Primary Care Unavailable ACUNA, VIRENKUMAR MBan Attending Unavailable NABILA CLAIR E Primary Care Unavailable ACUNA, VIRENKUMAR M. Referring Unavailable Allergies Allergy ClassificationReported Allergen(s)Allergy TypeDate of OnsetReaction(s) FacilityCorticosteroids (1 source)predniSONEDrug Kozpjdi32-23-6152iormThjlslfneKindred Hospital [facility] Penicillins (antibiotic) (1 source)PenicillinsDrug Zkejkbr77-54-7672Aabirwt ReactionKindred Hospital [place] (19 sources)Penicillins; Translations: [PENICILLINS]Propensity to adverse reactions to rgpr29-28-7790Dkkwdbh ReactionOhioHealth (20 sources)PenicillinsPropensity to adverse reactions to aijs16-39-5070Mtsdqm and vomitingOhioHealth (4 sources)Penicillin VDrug AllergyUnknowFreeman Orthopa[facility] & [facility] [employer] Other (14 sources)Penicillin; Translations: [penicillin]Drug AllergyEruption of skin (disorder)[facility] (1 source)PenicillinsDrug allergy (disorder)[id number] [facility] (20 sources)predniSONE; Translations: [prednisone]Drug Xbfjhim64-22-8077zeuf, Eruption of skin (disorder)[facility] (1 source)PenicillinsDrug allergy (disorder)67-23-1042YjttbqgtaKindred Hospital [place] [facility] (1 source)predniSONEDrug Wdvyfih55-69-2787YyouqsadvKindred Hospital [place] [facility] (4 sources)PenicillinsPropensity to adverse reactions to zhac17-04-8423Xhozvd and vomitingOhioHealth Medications Current Medications MedicationDrug Class(es)DatesSig (Normalized)Sig (Original)acetaminophen 500 mg oral tablet (20 sources)Start: 84-16-5665hwhq 1 tablet by mouth every six hoursTylenol Extra Strength 500 mg oral tablet 500 mg = 1 tab(s), Oral, q6hr Start Date: 06/12/24 Status:Ordered Repeat number: 1Start: 08-24-2022 End: 90-50-6053pzzb 1 tablet by mouth every four hours as needed for nbuu313 mg, Oral, Every 4 hours PRN, mild pain, fever 100.4 F or greater, Starting on Christina 08/24/22 at 1445acetaminophen 325 mg / HYDROcodone bitartrate 5 mg oral tablet (20 sources)Opioid AgonistStart: 03-07-2024 End: 36-80-2926fctx 1 tablet by mouth every eight hours as needed for pain HYDROcodone-acetaminophen (NORCO) 5-325 mg per tablet Indications: Acute bilateral low back pain without sciatica Take 1 (one) tablet by mouth every 8 (eight) hours as needed for pain Can cause drowsiness. . 15 tablet 03/07/2024 03/12/2024 ActiveStart: 09-08-2022 End: 26-38-7143tcpc 1 tablet by mouth every six hours as needed for pain HYDROcodone-acetaminophen (NORCO) 5-325 mg per tablet Indications: Status post insertion of spinal cord stimulator , Status post lumbar discectomy Take 1 (one) tablet by mouth every 6 (six) hours as needed for pain . 28 tablet 0 09/08/2022 09/15/2022 ActiveStart: 03-03-2021 End: 89-00-3572XBHYYrsuzhb-acetaminophen (NORCO) 5-325 mg per tabletStart: 02-24-2021 End: 32-00-1572tyfa 1 tablet by mouth three times daily as needed for pain Hydrocodone-Acetaminophen 5-325 mg tablet Discontinued 1 TAB PO Three times daily as needed for Pain February 24, 2021 1:00am May 23, 2024 11:55am acetaminophen 325 mg / oxyCODONE hydrochloride 5 mg oral tablet (6 sources)Opioid AgonistStart: 08-25-2022 End: 43-41-3647dfuv 1 tablet by mouth once as needed, then take 2 tablets by mouth every six hours as neededoxyCODONE-acetaminophen (PERCOCET) 5-325 mg per tablet Indications: Failed back syndrome, lumbosacral , S/P insertion of spinal cord stimulator Take 1 (one) tablet to 2 (two) tablets by mouth every 6(six) hours as needed Causes Drowsiness. . 20 tablet 0 08/25/2022 08/28/2022 Active Start: 08-24-2022 End: 28-36-2917nlcx 1-2 tablets by mouth every four hours as needed1-2 tablet, Oral, Every 4 hours PRN, moderate to severe pain, Starting on [facility] 08/24/22 at 1445 [] Initiate with 1 [...] dose, or patient requires dose reduction, call physician.Start: 01-13-2022 End: 78-45-9649miqWUEGMA-acetaminophen (PERCOCET) 5-325 mg per tablet Indications: Lumbar disc herniation with radiculopathy Take 1 (one) tablet by mouth every 6 (six) hours as needed for pain (Days supply per fill: 3) . 12 tablet 0 01/13/2022 01/16/2022 ActiveAlbuterol Sulfate 90 mcg/actuation HFA aerosol inhaler (1 source)Start: 87-87-9173evow 1 puff(s) by inhalation every four hours as needed for wheezingAlbuterol Sulfate 90 mcg/actuation HFA aerosol inhaler Active 2 PUFF INHALATION Every 4 hours as needed for shortness of breath or wheezing 6.7 July 14, 2024 2:18pmaspirin 81 mg chewable tablet (20 sources)Platelet Aggregation Inhibitor, Nonsteroidal Anti-inflammatory Drug Start: 10-17-2023 End: 20-45-9121cbvtdei 81 mg chewable tablet Chew and Swallow 1 (one) tablet (81 mg total) daily . 90 tablet 3 10/17/2023 ActiveStart: 58-49-5200djta 1 tablet by mouth once dailyaspirin 81 mg Oral EC Tab 81 mg = 1 tab(s), Oral, Daily Start Date: 06/12/24 Status: Ordered Repeat number: 1 End: 86-79-4095sjof 1 tablet by mouth every twenty-four hoursAspirin 81 MG 1 tablet Orally Once a day Activeatorvastatin 20 mg oral tablet (20 sources)HMG-CoA Reductase InhibitorStart: 08-06-2021 End: 93-47-8985khjq 1 tablet by mouth once dailyatorvastatin (LIPITOR) 20 MG tablet Take 1 (one) tablet (20 mg total) by mouth daily . 90 tablet 3 09/15/2024 09/15/2025 Activeazithromycin 250 mg oral tablet (1 source)Macrolide AntimicrobialStart: 64-67-9438Rxmluofbjfbp 250 MG as directed Orally 2 tabs po today, then 1 tab daily x 4 more days for 5 Feb, Activeciprofloxacin 500 mg oral tablet (6 sources)Quinolone AntimicrobialStart: 53-59-3919Krvtk 500 mg Tab See Instructions, 1 tab po night prior to cystoscopy. 1 tab po following cystoscopy ., # 2 tab(s), Refills(s) 0, Pharmacy: [facility]/pharmacy #[id number], 178, cm, 06/12/24 10:46:00 EDT, Height/Length Dosing, 117, kg, 06/12/24 10:46:00 EDT, Weight Dosing Start Date: 06/12/24 Status: Ordered Quantity: 2.0 Unit: tab(s) Repeat number: 1Start: 08-01-2022 End: 38-92-5354nwkm 1 tablet by mouth once dailyciprofloxacin HCl (CIPRO) 500 MG tablet Take 1 (one) tablet (500 mg total) by mouth daily for 7 days . 7 tablet 0 08/01/2022 08/08/2022 Activecyclobenzaprine hydrochloride 5 mg oral tablet (10 sources)Muscle RelaxantStart: 09-08-2022 End: 57-98-2410vwlc 1 tablet by mouth three times daily as needed for muscle spasmscyclobenzaprine (FLEXERIL) 5 MG tablet Indications: Failed back syndrome, lumbosacral , Status postlumbar discectomy Take 1 (one) tablet (5 mg total) by mouth 3 (three) times a day as needed for muscle spasms . 90 tablet 0 09/08/2022 10/08/2022 ActiveStart: 08-24-2022 End: 20-70-0934ymmu 1 tablet by mouth every eight hourscyclobenzaprine (FLEXERIL) 10 MG tablet Take 1 (one) tablet (10 mg total) by mouth every 8 (eight) hours Causes drowsiness. for 10 days . 30 tablet 0 08/25/2022 09/04/2022 ActiveStart: 01-13-2022 End: 58-60-0632pofg 1 tablet by mouth three times daily as needed for muscle spasmscyclobenzaprine (FLEXERIL) 10 MG tablet Take 1 (one) tablet (10 mg total) by mouth 3 (three) times a day as needed for muscle spasms . 30 tablet 0 01/13/2022 01/23/2022 Activedocusate sodium 50 mg / sennosides, snf 8.6 mg oral tablet (4 sources)Start: 08-25-2022 End: 07-41-2553bchg 2 tablets by mouth once daily for constipationsenna-docusate (SENNA-S) 8.6-50 mg Take 2 (two) tablets by mouth daily For constipation for 14 days. 28 tablet 0 08/25/2022 09/08/2022 ActiveStart: 08-24-2022 End: 11-95-5699jtfw 1 tablet by mouth twice daily2 tablet, Oral, 2 times daily, First dose on [facility] 08/24/22 at 2100 [] Hold for loose stools. Do Not Crush or Chew if administering orally due to bitter taste. May be crushed if given via tube.doxycycline hyclate 100 mg oral tablet (4 sources)Tetracycline-class DrugStart: 11-02-2022 End: 71-75-1969moyl 1 tablet by mouth twice dailydoxycycline hyclate (VIBRA- TABS) 100 MG tablet Take 1 (one) tablet (100 mg total) by mouth 2 (two) times a day for 7 days . 14 tablet 0 11/02/2022 11/09/2022 Activeempagliflozin 10 mg oral tablet (9 sources)Sodium-Glucose Cotransporter 2 InhibitorStart: 09-01-2021 End: 33-51-6878gsio 1 tablet by mouth once dailyempagliflozin (Jardiance) 10 mg Tab Take 1 (one) tablet (10 mg total) by mouth daily . 30 tablet 11009/01/2021 12/29/2021 Discontinued (Cost of medication)inhalational spacing device inhaler (7 sources)Start: 06-19-2023 End: 81-54-4641zyqftxpzeshr spacing device inhaler Use as instructed . 1 each 2 06/19/2023 06/18/2024 ActivelevoFLOXacin 500 mg oral tablet (1 source)Quinolone Antimicrobialtake 1 tablet by mouth every twenty-four hours levoFLOXacin 500 MG 1 tablet Orally Once a day for 7 days Activeloratadine 10 mg oral tablet (20 sources)Start: 03-52-0050yrfk 10 mg by mouth once dailyloratadine 10 mg, Oral, Daily Start Date: 06/12/24 Status: Ordered Repeat number: 1take 1 tablet by mouth every twenty-four hoursLoratadine 10 MG 1 tablet Orally Once a day Active loratadine 10 mg Tab 10 mg, pseudoePHEDrine 120 mg TbER 120 mg (20 sources)loratadine 10 mg Tab 10 mg, pseudoePHEDrine 120 mg TbER 120 mg Take by mouth as needed . Activeloratadine 10 mg Tab 10 mg, pseudoePHEDrine 120 mg TbER 120 mg Take by mouth as needed . 0loratadine 10 mg Tab 10 mg, pseudoePHEDrine 120 mg TbER 120 mg Take by mouth as needed . 0 Activeloratadine 10 mg Tab 10 mg, pseudoePHEDrine 120 mg TbER 120 mg Take by mouth daily . 0 Ckldix80 hr metoprolol succinate 50 mg extended release oral tablet (20 sources)beta-Adrenergic BlockerStart: 06-19-2023 End: 96-46-2109eiot 1 tablet by mouth once dailymetoprolol succinate (TOPROL-XL) 50 MG 24 hr tablet Indications: Chronic systolic HF (heart failure) (HCC) Take 1 (one) tablet (50 mg total) by mouth daily . 90 tablet 3 09/15/2024 Active Start: 06-05-2022 End: 11-47-3711ypkb 1 tablet by mouth once dailymetoprolol succinate (TOPROL-XL) 100 MG 24 hr tablet Indications: Chronic systolic HF (heart failure) (HCC) Take 1 (one) tablet (100 mg total) by mouth daily . 90 tablet 3 05/31/2023 06/19/2023 Discontinued (Reorder (Suppress CancelRx Message to Pharmacy))Start: 09-20-2021 End: 41-72-1787bkfi 1.5 tablets by mouth every twenty-four hours, then take 0.5 tablet by mouth once dailymetoprolol succinate (TOPROL-XL) 50 MG 24 hr tablet Indications: Chronic systolic HF (heart failure) (HCC) Take 1.5 (one and a half) tablets (75 mg total) by mouth daily . 135 tablet 1 04/17/2022 06/05/2022 Discontinued (Reorder (Suppress CancelRx Message to Pharmacy))Start: 08-03-2021 End: 71-02-0986ctnz 1 tablet by mouth once dailymetoprolol succinate (TOPROL-XL) 50 MG 24 hr tablet Indications: Chronic systolic HF (heart failure) (HCC) Take 1 (one) tablet (50 mg total) by mouth daily . 30 tablet 5 08/03/2021 08/03/2022 ActiveStart: 07-06-2021 End: 93-41-8147tqpz 1 tablet by mouth once dailymetoprolol succinate (TOPROL-XL) 25 MG 24 hr tablet Take 1 (one) tablet (25 mg total) by mouth daily . 30 tablet 0 11/09/2021 12/29/2021 Discontinued (Dose adjustment)mupirocin 0.02 mg/mg topical ointment (6 sources)RNA Synthetase Inhibitor AntibacterialStart: 11-01-2022 End: 02-99-6881mlvlyfgbn (BACTROBAN) 2 % ointment Apply topically 2 (two) times a day for 7 days . 22 g 0 11/01/2022 11/08/2022 Activenaloxone (NARCAN) 4 mg/actuation [place] (7 sources)Start: 28-33-2071dgtzksfh (NARCAN) 4 mg/actuation [place] Administer 1 spray into one nostril for known or suspected opioid overdose. If patient worsens or does not respond, may repeat in 2-3 minutes. . 2 each 03/07/2024 Activesacubitril 24 mg / valsartan 26 mg oral tablet (20 sources)Angiotensin 2 Receptor BlockerStart: 06-20-2023 End: 68-22-9482dalz 1 tablet by mouth once dailySacubitril-Valsartan (Entresto) 24-26 mg tablet Discontinued 1 TAB PO Daily June 20, 2023 12:00am June 22, 2023 11:31am FreeTextSi tablet Orally daily; Note: Source Status: Taking; Provider: Nabila Jara ( )Start: 10-04-2022 End: 67-55-1376ekoq 1 tablet by mouth twice dailysacubitriL-valsartan (Entresto) 24-26 mg per tablet Take 1 (one) tablet by mouth 2 (two) times a day . 180 tablet 3 09/16/2024 09/16/2025 ActiveStart: 07-25-2021 End: 91-69-3579plkf 1 tablet by mouth twice dailysacubitriL-valsartan (Entresto) 24-26 mg per tablet Take 1 (one) tablet by mouth 2 (two) times a day . 180 tablet 3 08/31/2021 10/02/2022 Discontinued (Reorder (Suppress CancelRx Message to Pharmacy))take 1 tablet by mouth every twenty-four hoursEntresto 24-26 MG 1 tablet Orally daily Activesertraline 25 mg oral tablet (20 sources)Serotonin Reuptake InhibitorStart: 06-22-2023 End: 60-19-2158avmg 1 tablet by mouth once dailySertraline 25 mg tablet Active 25 MG PO Daily May 26, 2024 8:29amtiZANidine 2 mg oral capsule (20 sources)Central alpha-2 Adrenergic AgonistStart: 11-16-2022 End: 28-49-1763ceim 1 capsule by mouth three times daily as needed for muscle spasmstiZANidine (ZANAFLEX) 2 MG capsule Take 1 (one) capsule (2 mg total) by mouth 3 (three) times a dayas needed for muscle spasms . 90 capsule 0 11/16/2022 12/16/2022 ActiveStart: 01-13-2022 End: 25-86-3586jdms 1 tablet by mouth three times daily as needed for muscle spasmstiZANidine (ZANAFLEX) 2 MG tablet Indications: Status post insertion of spinal cord stimulator Take1 (one) tablet (2 mg total) by mouth 3 (three) times a day as needed for muscle spasms . 30 tablet 0 10/04/2022 10/14/2022 Active Start: 58-51-8575uvyu 1 tablet by mouth once daily as needed for painTizanidine 4 mg tablet Active 4 MG PO Daily as needed for Pain February 24, 2021 1:00am Completed/Discontinued Medications MedicationDrug Class(es)DatesSig (Normalized)Sig (Original)[id number] 200 actuat albuterol 0.09 mg/actuat metered dose inhaler (20 sources)beta2-Adrenergic AgonistStart: 06-20-2023 End: 66-10-7573hpql 2 puff(s) by inhalation every four hours as neededAlbuterol Sulfate 90 mcg/actuation HFA aerosol inhaler Discontinued 2 PUFF INHALATION Every 4 hoursApril 2023 12:00am July 14, 2024 2:18pm FreeTextSi puff Inhalation every 4 hrs prn; Note: Source Status: Start; Refills: 0; Qty: 1 Each; Provider: Nabila Jara EStart: 06-19-2023 End: 05-05-2932ffip 2 puff(s) by inhalation every four to six hours as needed for wheezingalbuterol (Ventolin HFA) 90 mcg/actuation inhaler Inhale 2 (two) puffs every 4 to 6 hours as neededfor wheezing or shortness of breath . 18 g 1 06/19/2023 ActiveStart: 67-83-1230ekde 2 puff(s) by inhalation every four hours as neededAlbuterol Sulfate HFA 108 (90 Base) MCG/ACT 2 puff Inhalation every 4 hrs prn Feb, ActiveALPRAZolam 0.25 mg oral tablet (20 sources)BenzodiazepineStart: 06-20-2023 End: 74-73-5642bqgp 1 tablet by mouth once daily as neededAlprazolam 0.25 mg tablet Discontinued 0.25 MG PO Daily June 20, 2023 12:00am June 22, 2023 11:44am FreeTextSi tablet Orally daily prn; Note: Source Status: Taking; Refills: 0; Qty: 30 Tablet; Provider: Nabila Ogart: 35-27-7498xmos 1 tablet by mouth once daily as neededALPRAZolam 0.25 MG 1 tablet Orally daily prn for 30 days Oct, ActiveStart: 25-19-7579rbla 1 tablet by mouth once daily as neededALPRAZolam 0.25 MG 1 tablet Orally daily prn for 30 days Mar, ActiveStart: 78-80-0371dwim 1 tablet by mouth three times daily as needed ALPRAZolam (XANAX) 0.25 MG tablet Take 1 (one) tablet (0.25 mg total) by mouth 3 (three) times a day as needed . 08/04/2021 Activebenzonatate 200 mg oral capsule (11 sources)Non-narcotic AntitussiveStart: 06-20-2023 End: 10-98-5487gmuy 1 capsule by mouth three times dailyBenzonatate 200 mg capsule Discontinued 1 CAP PO Three times daily June 20, 2023 12:00am June 22, 2023 11:30am FreeTextSi capsule Orally Three times a day; Note: Source Status: Taking; Refills: 0; Qty: 30 Capsule; Provider: Nabila Ogart: 32-06-3383hxlz 1 capsule by mouth every eight hoursBenzonatate 200 MG 1 capsule Orally Three times a day for 10 day(s) Jan, Activecalcium chloride 0.0014 meq/ml / potassium chloride 0.004 meq/ml / sodium chloride 0.103 meq/ml / sodium lactate 0.028 meq/ml injectable solution (3 sources)Start: 08-24-2022 End: 22-77-4908rloc 100 mL intravenously every ohfv186 mL/hr, Intravenous, Continuous, Starting on Sun08/24/22 at 1345, PACU (only)Start: 08-01-2022 End: 00-04-4077gnsv 100 mL intravenously every oyfh671 mL/hr, Intravenous, Continuous, Starting on Sun08/01/22 at 1045, PACU (only)Start: 01-13-2022 End: 71-10-3318snuk 100 mL intravenously every jxsc992 mL/hr, Intravenous, Continuous, Starting on Sun01/13/22 at 1115, PACU (only)50 ml clindamycin 18 mg/ml injection (1 source)Lincosamide AntibacterialStart: 08-24-2022 End: 66-67-4571gavw 900 mg intravenously every eight xapns491 mg, Intravenous, at 100 mL/hr, Every 8 hours, First dose on Sun08/24/22 at 1900, For 2 doses Sta rting 8 hours after pre-procedure dose x 2 doses. Indication (POST PROCEDURE): Neurologydapagliflozin 10 mg oral tablet (2 sources)Sodium-Glucose Cotransporter 2 InhibitorStart: 08-31-2021 End: 93-26-9957eonj 1 tablet by mouth once dailydapagliflozin (Farxiga) 10 mg tablet Take 1 (one) tablet (10 mg total) by mouth daily . 30 tablet 08/31/2021 09/01/2021 Discontinued (Formulary change)diphenhydrAMINE hydrochloride 25 mg oral tablet (20 sources)Histamine-1 Receptor AntagonistStart: 08-24-2022 End: 70-75-7936sdka 1 tablet by mouth every four hours as frubdm88 mg, Oral, Every 4 hours PRN, itching, Starting on Sun08/24/22 at 1445take 1 tablet by mouth once daily as needed for sleepdiphenhydrAMINE (BENADRYL) 25 mg tablet Take 1 (one) tablet (25 mg total) by mouth nightly as needed for sleep . Active1 ml fentaNYL 0.05 mg/ml injection (1 source)Opioid AgonistStart: 01-13-2022 End: mcg, Intravenous, Every 5 min PRN, Pain, Starting on Sun01/13/22 at 1022, For 4 doses, PACU (only) [] Do not give more than 100 mcg while in PACU.fentaNYL (SUBLIMAZE) inj syringe 25 mcg (1 source)Start: 08-24-2022 End: 89-09-524074 mcg, Intravenous, Every 5 min PRN, Pain, Starting on Christina 08/24/22 at 1257, For 4 doses, PACU (only) [] Do not give more than 100 mcg while in PACU.gabapentin 300 mg oral capsule (20 sources)Anti-epileptic AgentStart: 06-20-2023 End: 69-18-4239odmg 1 capsule by mouth three times dailyGabapentin 300 mg capsule Discontinued 300 MG PO Three times daily June 20, 2023 12:00am July 03, 2023 1:37pm FreeTextSi capsule Orally three times daily; Note: Source Status: Taking; Provider: Nabila Jara ( )Start: 11-01-2022 End: 95-81-9636njmd 1 capsule by mouth every eight hoursgabapentin (NEURONTIN) 300 MG capsule Take 1 (one) capsule (300 mg total) by mouth every 8 (eight) h ours . 90 capsule 0 11/01/2022 06/19/2023 Discontinued (Patient's Request)Start: 09-08-2022 End: 07-76-2895ofjm 1 capsule by mouth three times dailygabapentin (NEURONTIN) 100 MG capsule Indications: Failed back syndrome, lumbosacral , Status post l umbar discectomy Take 1 (one) capsule (100 mg total) by mouth 3 (three) times a day . 90 capsule 11009/08/2022 11/01/2022 Discontinuedtake 1 capsule by mouth three times dailyGabapentin 300 MG 1 capsule Orally three times daily Active1 ml HYDROmorphone hydrochloride 1 mg/ml injection (4 sources)Opioid AgonistStart: 08-24-2022 End: 93-84-6469cbta 0.25-0.5 mg intravenously every three hours as needed0.25- 0.5 mg, Intravenous, Every 3 hours PRN, moderate [...] hours prn moderate to severe pain. [] Ifpain is UNrelieved after repeat dose, or patient requires dose reduction, call physician. [] May use IV for breakthrough pain or if unable to tolerate oral route.Start: 08-24-2022 End: .5 mg, Intravenous, Every 10 min PRN, Pain, Starting on Christina 08/24/22 at 1257, For 6 doses, PACU (only) Give if fentanyl not effective or not ordered. Do not give more than 3 mg total. Start: 08-01-2022 End: .5 mg, Intravenous, Every 10 min PRN, Pain, Starting on Sun08/01/22 at 0951, For 6 doses, PACU (only) Give if fentanyl not effective or not ordered. Do not give more than 3 mg total. Start: 01-13-2022 End: .5 mg, Intravenous, Every 5 min PRN, Pain, Starting on Sun01/13/22 at 1022, For 6 doses, PACU (only) Give if fentanyl not effective or not ordered. Do not give more than 3 mg total. ibuprofen 800 mg oral tablet (20 sources)Nonsteroidal Anti-inflammatory DrugStart: 01-05-2015 End: 69-39-2483qrfnhzicn (ADVIL,MOTRIN) 800 MG tablet Take 600 mg by mouth 3 (three) times a day as needed . 0 01/05/2015 08/25/2022 Discontinued (Stop Taking at Discharge)Ibuprofen 800 MG/8ML as directed Intravenous Active lisinopril 5 mg oral tablet (3 sources)Angiotensin Converting Enzyme InhibitorStart: 07-06-2021 End: 76-84-0669idzn 1 tablet by mouth once dailylisinopriL (PRINIVIL,ZESTRIL) 5 MG tablet Indications: Chronic systolic HF (heart failure) (HCC) Take 1 (one) tablet (5 mg total) by mouth daily . 30 tablet 07/06/2021 07/25/2021 Discontinuedmagnesium hydroxide 80 mg/ml oral suspension (1 source)Start: 08-24-2022 End: 60-35-0990ugeo 2400 mg by mouth once daily as needed for constipation2,400 mg (30 mL), Oral, Daily PRN, constipation, constipation, Starting on Christina 08/24/22 [place] [address] ml meperidine hydrochloride 25 mg/ml cartridge (2 sources)Opioid AgonistStart: 08-01-2022 End: .5 mg, Intravenous, Every 5 min PRN, shivering, Starting on Sun08/01/22 at 0951, For 2 doses, PACU (only) Do not give more than 25 mg total. RESTRICTED to use in rigors OR pain management in patients with a documented opioid allergy. Please select this medication s indication. RigorsStart: 01-13-2022 End: .5 mg, Intravenous, Every 5 min PRN, shivering, Starting on Sun01/13/22 at 1022, For 2 doses, PACU (only) Do not give more than 25 mg total. RESTRICTED to use in rigors OR pain management in patients with a documented opioid allergy. Please select this medication s indication. Rigorsnaloxone hydrochloride 40 mg/ml nasal spray (20 sources)Opioid AntagonistStart: 11-01-2022 End: 33-75-9868jtgnjcwh (NARCAN) 4 mg/actuation [place] Administer 1 spray into one nostril for known or suspected opioid overdose. If patient worsens or does not respond, may repeat in 2-3 minutes. . 2 each 0 11/01/2022 06/19/2023 Discontinued (Patient's Request)Start: 08-25-2022 End: 01-71-5141farpennq (NARCAN) 4 mg/actuation [place] Administer 1 spray into one nostril for known or suspected opioid overdose. If patient worsens or does not respond, may repeat in 2-3 minutes. . 2 each 0 08/25/2022 09/08/2022 Discontinued (Patient's Request)naloxone (NARCAN) injection 0.1 mg (3 sources)Start: 08-24-2022 End: 65-06-3536kyzgmmpk (NARCAN) injection 0.1 mgStart: 08-01-2022 End: 80-32-9197mztrzfjk (NARCAN) injection 0.1 mgStart: 01-13-2022 End: 37-44-2164qfageipg (NARCAN) injection 0.1 mg2 ml ondansetron 2 mg/ml injection (3 sources)Serotonin-3 Receptor AntagonistStart: 08-24-2022 End: 23-03-2944liiq 4 mg intravenously every six hours as needed for nausea and vomiting4 mg, Intravenous, Every 6 hours PRN, nausea, vomiting, Starting on Christina 08/24/22 at 1445Start: 08-01-2022 End: 59-17-3642fspv 4 mg intravenously every twenty-four hours as needed for nausea and vomiting4 mg, Intravenous, Once as needed, nausea, vomiting, Starting on Tu08/01/22 at 0951, For 1 dose, PACU (only) Administer first as needed for nausea/vomiting, or as directed by anesthesiaStart: 01-13-2022 End: 11-78-1889ydsb 4 mg intravenously every twenty-four hours as needed for nausea and vomiting4 mg, Intravenous, Once as needed, nausea, vomiting, Starting on Sun01/13/22 at 1022, For 1 dose, PACU (only) Administer first as needed for nausea/vomiting, or as directed by anesthesiapredniSONE 50 mg oral tablet (14 sources)Start: 02-24-2021 End: 03-02-9602hoad 1 tablet by mouth once dailyPrednisone 50 mg tablet Discontinued 50 MG PO Daily 07 07February 24, 2021 1:00am June 22, 2023 11:31amtake 1 tablet by mouth twice daily at mealtimeprochlorperazine 5 mg/ml injectable solution (2 sources)PhenothiazineStart: 08-01-2022 End: 89-92-3540ldly 5 mg intravenously every twenty-four hours as needed for nausea5 mg, Intravenous, Once as needed, nausea, Starting on Sun08/01/22 at 0951, For 1 dose, PACU (only) Administer if ondansetron (Zofran), promethazine (Phenergan), and Metocolopramide (Reglan) ineffective or not ordered, or as directed by anesthesia, as needed for nausea/vomitingStart: 01-13-2022 End: 58-71-9449wfta 5 mg intravenously every twenty-four hours as needed for nausea5 mg, Intravenous, Once as needed, nausea, Starting on Sun01/13/22 at 1022, For 1 dose, PACU (only) Administer if ondansetron (Zofran), promethazine (Phenergan), and Metocolopramide (Reglan) ineffective or not ordered, or as directed by anesthesia, as needed for nausea/fyesmeqp4872 ml sodium chloride 9 mg/ml injection (4 sources)Start: 08-24-2022 End: 57-56-3599mkcl 75 mL intravenously every hour75 mL/hr, Intravenous, Continuous, Starting on Sun08/24/22 at 1545Start: 08-24-2022 End: 17-38-2835wtobyk chloride 0.9% (NS)Start: 08-01-2022 End: 32-45-2721ydehbn chloride 0.9% (NS)Start: 01-13-2022 End: 64-36-9712aahxrk chloride 0.9% (NS)sulfamethoxazole 800 mg / trimethoprim 160 mg oral tablet (20 sources)Dihydrofolate Reductase Inhibitor Antibacterial, Sulfonamide AntimicrobialStart: 05-08-2024 End: 56-26-9015slva 1 tablet by mouth twice dailySulfamethoxazole-Trimethoprim 800-160 mg tablet Discontinued 1 TAB PO Twice daily May 08, 2024 1:00am May 23, 2024 11:50amStart: 11-01-2022 End: 27-52-8775mwbs 1 tablet by mouth twice dailysulfamethoxazole-trimethoprim (BACTRIM DS,SEPTRA DS) 800-160 mg per tablet Take 1 (one) tablet by mouth 2 (two) times a day . 14 tablet 0 11/01/2022 06/19/2023 Discontinued (Therapy completed)traZODone hydrochloride 50 mg oral tablet (1 source)Serotonin Reuptake InhibitorStart: 08-24-2022 End: 62-25-4432pifi 50 mg by mouth once daily as needed for sleep50 mg, Oral, Nightly PRN, sleep, Starting on Christina 08/24/22 at 1445 [] May repeat once in 30 minutes if still awake. Problems Active Problems Problem ClassificationProblemDateDocumented DateEpisodic/ChronicAcute myocardial infarction (2 sources)Myocardial dsbzoudwsi45-76-4225BxwuuumKaqdahib reactions (1 source)Allergic contact dermatitis due to adhesivesEpisodicAnxiety disorders (20 sources)Anxiety; Translations: [Anxiety disorder, unspecified]Onset: 905884-18-9296XmiznfkNyuuacv dysrhythmias (4 sources)Palpitations; Translations: [Palpitations]Onset: 498203-10-2734 EpisodicChronic obstructive pulmonary disease and bronchiectasis (2 sources)Bronchitis, not specified as acute or chronicEpisodicConduction disorders (1 source)Left bundle branch block; Translations: [Left bundle-branch block, unspecified]ChronicCongestive heart failure; nonhypertensive (20 sources)Chronic systolic heart failure; Translations: [Chronic systolic (congestive) heart failure]Onset: 01-10-4268RxauaxeFwddgbaz atherosclerosis and other heart disease (1 source)Coronary atherosclerosis; Translations: [Atherosclerotic heart disease of barrow coronary artery without angina pectoris]ChronicDisorders of lipid metabolism (6 sources)Hyperlipidemia; Translations: [Hyperlipidemia, unspecified]Chronic Endometriosis (2 sources)Endometriosis (clinical)46-94-1555DymnfxfMuwjzuhuf hypertension (20 sources)Hypertensive disorder; Translations: [Essential (primary) hypertension]Onset: 09-94-0242GqrmeskCuhaxqmxsbozz symptoms and ill-defined conditions (17 sources)Dysuria; Translations: [Dysuria]Onset: 201742-01-3877Unlbdbdd Miscellaneous mental health disorders (1 source)Adjustment insomniaEpisodicNonspecific chest pain (17 sources)Chest pain, unspecified; Translations: [Chest discomfort]Onset: 76-10-0902LfwdazbtMkzvebrksjublc (8 sources)Arthritis of acromioclavicular joint; Translations: [Primary osteoarthritis, right shoulder]48-06-8999IdpayizXuhzi acquired deformities (20 sources)Scoliosis deformity of spine; Translations: [Scoliosis, unspecified] Onset: 10-24-4169OwaedepWlfsm acquired deformities (1 source)Scoliosis of lumbar spine; Translations: [Scoliosis, unspecified] 86-10-9187RdtkyifHfxca acquired deformities (5 sources)Contracture of joint of left ankle; Translations: [Contracture, left ankle]35-66-8804UeekgjxPnnxo and ill-defined heart disease (2 sources)Heart jrqwqze72-27-9021WtitnnwDghgb connective tissue disease (5 sources)Plantar fascial fibromatosis; Translations: [PLANTAR FASCIAL FIBROMATOSIS]Onset: 85-57-3554ZrftcqknKlhqz connective tissue disease (1 source)Achilles tendinitis, left leg; Translations: [ACHILLES TENDINITIS LEFT LEG]Onset: 11-39-3653CjwrqfohBzfiq connective tissue disease (5 sources)Pain in left foot; Translations: [PAIN IN LEFT FOOT]Onset: 03-22-2022 EpisodicOther connective tissue disease (2 sources)Neuralgia and neuritis, unspecifiedEpisodicOther connective tissue disease (7 sources)Disorder of rotator cuff; Translations: [Unspecified rotator cuff tear or rupture of right shoulder, not specified as traumatic]70-23-0430Ikwzeggy Other connective tissue disease (3 sources)Biceps tendinitis; Translations: [Bicipital tendinitis, right shoulder]72-71-3856RvqkrhecTomrm connective tissue disease (8 sources)Bicipital tendinitis, right shoulder; Translations: [Bicipital tenosynovitis]75-55-3519TfwaqdbhOnbez connective tissue disease (4 sources)Unspecified rotator cuff tear or rupture of right shoulder, not specified as traumatic; Translations: [Disorders of bursae and tendons in shoulder region, unspecified]97-34-2133QpvhimisEhnfc connective tissue disease (5 sources)Plantar fasciitis; Translations: [Plantar fascial fibromatosis] 58-21-8930AuebhwokXgeqa lower respiratory disease (5 sources)Dyspnea on exertion; Translations: [Other forms of dyspnea]06-19-2023 EpisodicOther lower respiratory disease (4 sources)Other forms of dyspnea; Translations: [Other forms of dyspnea]Onset: 10-77-7800HwvwhaadJxefh nervous system disorders (14 sources)Chronic pain; Translations: [Other chronic pain]ChronicOther nervous system disorders (2 sources)Other chronic painOnset: 04-20-2021 Resolved: 06-41-8000PvlozydQnjjh nervous system disorders (20 sources)Neuropathy; Translations: [Polyneuropathy, unspecified]Onset: 587361-63-7679VaeuahiZeazv nervous system disorders (1 source)Carpal tunnel syndrome of left wrist; Translations: [Carpal tunnel syndrome, left upper limb]92-65-4324NbpanjjGmmoe nervous system disorders (1 source)Other abnormalities of gait and mobility; Translations: [OTHER ABNORMALITIES GAIT AND MOBILITY]Onset: 87-37-7105ZteayuqeEnvxp nervous system disorders (3 sources)Ellison's reflex positive; Translations: [Abnormal reflex]12-13-2022 EpisodicOther nervous system disorders (2 sources)Paresthesia of upper limb; Translations: [Anesthesia of skin] 19-48-3660BtwljprcZgdvc non-traumatic joint disorders (13 sources)Pain in right shoulder; Translations: [Right shoulder pain]Onset: 201985-95-7373CbsnnlrzFnmdb nutritional; endocrine; and metabolic disorders (20 sources)Obese class I; Translations: [Obesity, unspecified]Onset: 07-04-2021 47-67-1650GxovodcBklxi nutritional; endocrine; and metabolic disorders (2 sources)Weight increased; Translations: [Abnormal weight gain]05-23-2024 EpisodicOther nutritional; endocrine; and metabolic disorders (2 sources)Abnormal weight gain; Translations: [Abnormal weight gain]05-23-2024 EpisodicResidual codes; unclassified (1 source)Postprocedural state finding; Translations: [Presence of other specified functional implants]37-40-4634RldquloJfsefude codes; unclassified (7 sources)H/O Spinal surgery; Translations: [Presence of other specified functional implants]81-74-2645HxzikhwReahapxc codes; unclassified (4 sources)Presence of other specified functional implants; Translations: [Presence of other specified functional implants]Onset: 32-83-9962Scyusvj Residual codes; unclassified (4 sources)History of lumbar discectomy; Translations: [Other specified postprocedural states]EpisodicResidual codes; unclassified (1 source)H/O Spinal surgery; Translations: [Other specified postprocedural states]EpisodicResidual codes; unclassified (5 sources)Other specified postprocedural states; Translations: [OTH SPECIFIED POSTPROCEDURAL STATES]Onset: 53-10-3578WslhbuhyVwjskjtgblg; intervertebral disc disorders; other back problems (20 sources)Arthropathy of lumbar facet joint; Translations: [Spondylosis without myelopathy or radiculopathy, lumbar region]Onset: 04-20-2021 Resolved: 66-78-5856QefvhtdDmsrjnlwr-related disorders (1 source)Nicotine dependence, cigarettes, uncomplicated; Translations: [NICOTINE DEPEND CIGARETTES UNCOMP]Onset: 05-81-0618AnwcddcYpgtunc (3 sources)Vasovagal symptom; Translations: [Syncope and collapse]Onset: 876236-03-7881GfxhwssqHzbclguxvsrs (2 sources)Asymptomatic microscopic widtvcvvz91-99-3588Kfanoaizugng (1 source)Low back pain, unspecified; Translations: [Low back pain, unspecified] Onset: 03-07-2024 Past or Other Problems Problem ClassificationProblemDateDocumented DateEpisodic/ChronicOther aftercare (1 source)Other detention (current) drug therapy; Translations: [OTH FLARE STITCHER CURRENT DRUG THERAPY]Onset: 76-09-9372NgrftsnjXqmie aftercare (1 source)[facility] (current) use of aspirin; Translations: [FLARE STITCHER CURRENT USE OF ASPIRIN]Onset: 85-49-9866KsqxwhmkBhtri lower respiratory disease (1 source)Shortness of breath; Translations: [SHORTNESS OF BREATH]Onset: 56-45-2317EqfjtndpZvfpj screening for suspected conditions (not mental disorders or infectious disease) (20 sources)Electrocardiogram abnormal; Translations: [Abnormal electrocardiogram [ECG] [EKG]]Onset: 484317-42-9670UvyfgxebEwrkghoa; pneumothorax; pulmonary collapse (1 source)Pleurisy; Translations: [PLEURISY]Onset: 57-84-2790OjxmhcmoQomaqofb codes; unclassified (20 sources)Tobacco user; Translations: [Tobacco use]Onset: 77-14-8418Qawaspug Spondylosis; intervertebral disc disorders; other back problems (20 sources)Lumbar radiculopathy; Translations: [Radiculopathy, lumbar region] Onset: 04-20-2021 Resolved: 92-33-6409GrzdwhzjBbebrfw on above:Problem List clean-up per request of Phys. EHR CmteUnclassified (1 source)Low back pain, unspecified; Translations: [Low back pain, unspecified] Onset: 03-07-2024 Results Test NameValueInterpretationReference RangeFacilityCT CCTA HEART (ELECTRIC METER TESTER HELPER READ)on 65-81-9000PV CCTA HEART (ELECTRIC METER TESTER HELPER READ)Coronary Computed Angiography Report Patient Name: Verito Brennan Age: 59 y.o. Requesting Physician: Interpreting Instructional Supervisor: Vijay Acuna MD Primary Care Physician: Clair Dahl Clinical Indication: Chest pain Gender: female Race/Ethnicity: White Cardiovascular risk factors: Hypertension Prior Imaging: LHC, echo Procedure: Computed tomographic angiography with contrast, including 3D image post-processing (including evaluation of cardiac structures and morphology, assessment of cardiac function and evaluation of venous structures, if performed) BMI: 34.1 kg/msq HR: 66 BPM Acquisition mode: Prospective, ECG triggered Complications: None Image Quality: Good, No significant artifacts. Scanner: K[employer] Revolution DLP 303.67 mGy 98ml Isovue-370. 0.4mg SL [...] modification to preventative pharmacotherapy Dictated by: ARDEN ACUNA on SunOct 29, 2024 12:27:13 PM EDT Transcribed by: ARDEN ACUNA on SunOct 29, 2024 12:27:13 PM EDT Finalized by: ARDEN ACUNA on SunOct 29, 2024 12:27:[address] [facility] CCTA HEART WITH AND WITHOUT CONTRASTon 69-91-9806SC CCTA HEART WITH AND WITHOUT CONTRASTEXAMINATION: CCTA OF THE HEART WITH AND WITHOUT [...] report for further details regarding cardiovascular structures. TJL/hb Workstation ID: [id number] Dictated by: SAMANTHA HENNING on SunOct 29, 2024 11:42:10 AM EDT Transcribed by: ANTONY HANSON on SunOct 29, 2024 12:33:19 PM EDT Finalized by: SAMANTHA HENNING on SunOct 29, 2024 1:09:24 PM EDTNoThe Christ HospitalComment on above:Order Comment: Injury/Trauma or Illness?:Illness/Other How long have you had these symptoms (acute/chronic)?:Chronic Reason for exam?:Chest pain, supplemental read Type of Exam?:Subsequent/Follow-up Additional signs and symptoms?:.ECHOCARDIOGRAM COMPLETEon 10-29-2024 ECHOCARDIOGRAM COMPLETESummary 1. Enlarged LV chamber size. Normal wall [...] pressure is 30 mmHg. Ordering Physician: Vijay Acuna MD Referring Physician: Vijay Acuna MD Batt Packer: Nicolasa Duval RD, RVS Attending Physician: Vijay Acuna MD Patient Info Site Location: Exam Location: [facility] [place] Name: Verito Brennan Age: 59 years : 1965 Gender: Female Ht: 178 cm Wt: 108 kg BSA: 2.35 m2 HR: 78 bpm BP: 134 / 82 mmHg Heart Rhythm: Sinus Rhythm Technical Quality: Fair Exam Date: 10/29/2024 8:11 AM Patient Status: OUTPATIENT Exam Type: ECHOCARDIOGRAM COMPLETE Study Info Indications R07.89 - Other chest pain I50.22 - Chronic systolic (congestive) heart failure [id number] BMI: 34.09 kg/m2 History/Risk Factors Hypertension: Yes [...] mmHg MV VTI 18 cm MV Decel Fountain 487 cm/s2 MV PHT 53 ms MV Area (PHT) 4.1 cm2 4.0-5.0 MV Area (Cont Eq VTI) 3.6 cm2 MV Area Index (Cont Eq VTI) 1.55 cm2/m2 MV DVI 1.01 MV Diastolic Function (more content not included)... [facility]Amb[facility] Summaryon 20-66-7860Upmftavpcg Visit SummaryAmbulatory Visit Summary VERITO BRENNAN :1965 Visit Date:07/22/2024 Ambulatory Visit Instructions Your Diagnosis Asymptomatic microscopic hematuria Incomplete bladder emptying Your Care Team Attending Physician - Justin DE JESUS MD Primary Care Physician - CLAIR DAHL MD This Is Your Medications List [...] Following Appointments Follow Up with NEAL CHEN, Justin Griffiths, SIVAN When: Where: [facility] [address], [place] [address]- Medications What How Much When Instructions Unchanged [...] of the bladder, urethra, kidney, or prostate. Otherpossible causes include: ??? Kidney stones. ??? Cancer [...] blood in your urine, even if it ispainless or the blood stops without treatment. Blood in the urine, when it happens and then stops and then happens again, can be a symptom of a very serious condition, including cancer. There is no pain in the initial stages of many urinary cancers. Follow these instructions at home: Medicines ??? Take tcrb-llf-qyhbevl and prescription medicines only as told by your health care provider. ??? If you were prescribed an antibiotic medicine, take it as told by your health care provider. Do notstop taking the antibiotic even if you start [...] tend to irritate the bladder. ??? Avoid (more content not included)...[facility] HospitalUrology Office/Clinic Noteon 66-15-2443Aztzyvy Office/Clinic NoteUrology Office/Clinic Note Chief Complaint Cysto HPI Staff Cysto (cytol done). Possible UD. Abx taken History of Present Illness Tests reviewed: cytology, CT I have reviewed the previous health record information and history for this patient from Dr. De Jesus. I have reviewed and verified the staff [...] Justin Griffiths, URL [facility] [address], [place] [address]- Additional Instructions: PRN Patient Education Hematuria, Adult I, Jessenia Ellison, personally scribed for Dr. De Jesus on 07/22/2024 13:42:22. . Problem List/Past Medical [...] 06/25/2020 Recorded SARS-CoV-2 (COVID-19) mRNA-1273 vaccine 05/28/2020 RecordedNormMetroHealth Main Campus Medical CenterComment on above:Result Comment: Electronically Signed By: Justin DE JESUS MD\.br\Date and Time Signed: 07/22/24 13:47 EDT\.br\Electronically Co-Signed By: Jessenia Ellison\.br\Date and Time Co-Signed: 07/22/24 13:42 EDT Urine Cytology ([facility])on 74-23-6701Ucnhvmbitoo exam Cytology (U) [Interp] Diagnosis InfoInvalid Interpretation Protestant HospitalComment on above:Result Comment: A:Urine,Clean Catch:Voided Interpretation - Adequate cellularity for evaluation. CPT 48448 MicroScopic Description - Adequacy - Gross Description Site ID:A color Yellow fixative Alcohol Specimen designated Clean Catch received in alcohol preservative and labeled with the patient???s name, consists of 110ml clear yellow fluid. Electronically signed by : on: 06/17/2024 12:21:21Performed By: #### [id number] #### [facility] [address], [place] [address]Ickknyhcpm Visit Summaryon 63-59-5131Knpqeehiyr Visit Summary Ambulatory Visit Summary VERITO BRENNAN :1965 Visit Date:06/12/2024 Ambulatory Visit Instructions Your Diagnosis Asymptomatic microscopic hematuria Incomplete bladder emptying Lower urinary tract symptoms (LUTS) Tests Performed CT Urogram -- Results Pending -- Please visit your patient portal for your results or contact your primary care physician. Your Care Team Attending Physician - BILL HARTLEY PA-C Primary Care Physician - CLAIR DAHL MD This Is Your Medications List [...] 1 tab po following cystoscopy. Pickup at [facility]/pharmacy #[id number] Unchanged acetaminophen (Tylenol Extra Strength 500 [...] physician if questions or concerns Pharmacy Information [facility]/pharmacy #[id number]: [address], [place] [phone] Allergies penicillin (Rash) predniSONE (Rash) Problems Ongoing [...] you for choosing us for your care. [facility] HospitalAmbulatory Visit Summary Ambulatory Visit Summary VERITO BRENNAN :1965 Visit Date:06/12/2024 Ambulatory Visit Instructions Your Diagnosis Asymptomatic microscopic hematuria Incomplete bladder emptying Lower urinary tract symptoms (LUTS) Your Care Team Attending Physician - BILL HARTLEY PA-C Primary Care Physician - CLAIR DAHL MD This Is Your Medications List [...] 1 tab po following cystoscopy. Pickup at [facility]/pharmacy #[id number] Unchanged acetaminophen (Tylenol Extra Strength 500 [...] physician if questions or concerns Pharmacy Information [facility]/pharmacy #[id number]: [address], [place] [phone] Allergies penicillin (Rash) predniSONE (Rash) Problems Ongoing [...] you for choosing us for your care. [facility] HospitalUrine Cytology ([facility])on 56-91-8579UA Method of ExtractionVoidedNoACMC Healthcare SystemComment on above:Performed By: #### [id number] #### [facility] [address], [place] [address]JZ Number of Kbol7Mrxuhcp Interpretation CodeDelaware County HospitalComment on above:Performed By: #### [id number] #### [facility] [address], [place] [address]CM SpecimenClean CatchNoACMC Healthcare SystemComment on above:Performed By: #### [id number] #### [facility] [address], [place] [address]CK Type of ServiceTechnical OnlyElyria Memorial HospitalComment on above:Performed By: #### [id number] #### [facility] [address], [place] [address]Bxovqin Office/Clinic Noteon 16-45-0086Dxwbkiy Office/Clinic NoteUrology Office/Clinic Note Chief Complaint New patient HPI Staff 59 yr old female referred by Dr Clair Dahl MD with dx of asymptomatic microscopic [...] PVR: 163 ml BMP 05/28/24: BUN [address] Mixer Operator 0.85 GFR >60 Review of Systems PHQ [...] among others. The patient, after being informed ofprocedural details and after questions have been answered, wishes to proceed. Full informed consenthas been obtained. Will order Local anesthesia. Antibiotics have been sent to pharmacy for procedure. Ordered: Urnls Dip Stick Auto w/o Microscopy POC [id number] 2. Incomplete bladder emptying (R33.9: Retention of urine, unspecified) PVR 163 ml. Encouraged double void maneuvers and timed voiding. If no significant stricture identified on cysto, will need to monitor PVR closely. Ordered: 58550 Measure Post Void residual urine and/or bladder capacity by US- non-imaging 3. Lower urinary tract symptoms (LUTS) (R39.9: [...] With When Contact Information [facility] Additional Instructions: For procedure as scheduled. Patient [...] See Instructions Entresto 24 mg-26 mg oral tablet (more content not included)...[facility] HospitalComment on above:Result Comment: Electronically Signed By: BILL HARTLEY PA-C\.fredy\Date and Time Signed: 06/13/2511:13 EDTLaboratory - Chemistry and Chemistry - challengeon 33-36-7484Eehssedyw Ql (U)NegativeNEGATIVE [facility] DaytonGlucose (U) [Mass/Vol]NegativeNEGATIVEKindred Hospital DaytonKetones Ql (U)NegativeNEGCity HospitalpH (U)6.0 [pH]5.0-9.0[facility] Hospitalpecific gravity (U) [Rel density]<=1.128Exsyvooz1.005-1.025[facility] Urobilinogen Qn (U)0.2 {Sergio'U}/dL0.2-1.0[facility] Laboratory - Specimen informationon 79-08-3717Bmnjjthtyt (U)CLEARCLEARFWhite HospitalColor (U)LT. YELLOWYELLOWKindred Hospital DaytonLaboratory - Urinalysison 58-78-1292Cmhroxdez esterase Test strip Ql (U) NegativeNEGATIVEKindred Hospital DaytonNitrite Ql (U)NegativeNEGATIVE [facility] DaytonProtein Ql (U)NegativeNEG/TRACEKindred Hospital DaytonMicroalbumin [Mass/volume] in Urineon 36-82-6582Yydgbvz DL <= 20 mg/L (U) [Mass/Vol]Microalbumin [Mass/volume] in Urine<=30.0[facility] DaytonNo Panel Informationon 40-71-8506Pahgx Occult BloodSMALL AbnormalNEGATIVEKindred Hospital DaytonUrine Random Olaminfjxr85.27 mg/dLLow20.00-300.00[facility] DaytonBasophils Auto (Bld) [#/Vol]on 02-81-0830Xmavadzur (Bld) [#/Vol]Automated basophil count0.0-0.1 [facility] DaytonBasophils/100 WBC Auto (Bld)on 05-28-2024 Basophils/100 WBC (Bld)Automated basophil %0.2-2.0[facility] DaytonCholesterol in LDL Calc [Mass/Vol]on 64-17-9917Teaezjrrkwc in LDL [Mass/Vol]Cholesterol in LDL [Mass/volume] in Serum or Plasma by calculation [facility] DaytonComment on above:<100 mg/dl IIGDBSV643-389 mg/dl NEAR OR ABOVE JVFADOG416-860 mg/dl BORDERLINE AXEE777-958 mg/dl HIGH>190 mg/dl VERY HIGHCholesterol in VLDL Calc [Mass/Vol]on 62-87-4543Mosppquowui in VLDL [Mass/Vol]Cholesterol in VLDL [Mass/volume] in Serum or Plasma by calculationKindred Hospital DaytonEosinophils/100 WBC Auto (Bld)on 24-93-0844Bcxxnsiibdh/100 WBC (Bld)Automated eosinophil %0.9-7.0[facility] DaytonErythrocyte distribution width Auto (RBC) [Ratio]on 41-48-5781Wemocnmukcn distribution width (RBC) [Ratio]Erythrocyte distribution width [Ratio] by Automated count11.0-15.0[facility] Estimated glomerular filtration rate (GFR) non- Americanon 05-28-2024 GFR/1.73 sq M.predicted among non-blacks MDRD (S/P/Bld) [Vol rate/Area]Estimated glomerular filtration rate (GFR) non->=60 mL/min/1.73m 2 [facility] DaytonGlobulin Calc (S) [Mass/Vol]on 05-28-2024 Globulin (S) [Mass/Vol]Serum globulin measurement by calculation (mass/volume) [facility] DaytonHematocrit Auto (Bld) [Volume fraction]on 60-09-2998Rllqjmdjsd (Bld) [Volume fraction]Hematocrit [Volume Fraction] of Blood by Automated count36.0-48.0[facility] DaytonHemoglobin [Mass/volume] in Bloodon 12-50-3805Vtqiejhjbq (Bld) [Mass/Vol]Hemoglobin [Mass/volume] in Blood12.0-16.0[facility] DaytonLaboratory - Chemistry and Chemistry - challengeon 73-55-9841Daatxxo [Mass/Vol]3.5 g/dL 3.4-5.0[facility] DaytonALP [Catalytic activity/Vol]115 U/L 46-116[facility] DaytonALT [Catalytic activity/Vol]15 U/L14-59 [facility] DaytonAST [Catalytic activity/Vol]10 U/DDsg25-01 [facility] DaytonBilirubin [Mass/Vol]0.3 mg/dL0.2-1.0[facility] DaytonCalcium [Mass/Vol]8.6 mg/dL8.5-10.1FWhite HospitalChloride [Moles/Vol]108 mmol/QMkvj90-895GwqiwbqqwKindred Hospital DaytonCholesterol [Mass/Vol]143 mg/dL<=200[facility] Cholesterol in HDL [Mass/Vol]52 mg/rI38-42HnvdsltlhKindred Hospital Dayton Comment on above:> or =60 mg/dl - LOW CARDIOVASCULAR RISK<40 mg/dl - HIGH CARDIOVASCULAR RISKCO2 [Moles/Vol]29.0 mmol/L21.0-32.0[facility] DaytonCreatinine [Mass/Vol]0.85 mg/dL0.55-1.02[facility] GFR/1.73 sq M.predicted MDRD (S/P/Bld) [Vol rate/Area]mL/min/{1.73_m2}>=60 mL/min/1.73m 2FWhite HospitalGlucose [Mass/Vol]103 mg/fD22-532 [facility] DaytonPotassium [Moles/Vol]4.2 mmol/L3.5-5.1FWhite HospitalProtein [Mass/Vol]7.2 g/dL6.4-8.2FChildren's Hospital of Columbusodium [Moles/Vol]143 mmol/N306-346QzhmfnrasKindred Hospital DaytonTriglyceride [Mass/Vol]58 mg/dL<=150[facility] DaytonTSH Qn2.283 m[IU]/L0.358-3.740[facility] DaytonUrea nitrogen [Mass/Vol]16.0 mg/dL7.0-18.0[facility] DaytonUrea nitrogen/Creatinine [Mass ratio]18.8 mg/mgKindred Hospital Dayton Laboratory - Hematology and Cell countson 58-50-8239Fhclxejo granulocytes/100 WBC (Bld)0.2 %0.0-0.5FWhite HospitalLeukocytes [#/volume] corrected for nucleated erythrocytes in Blood by Automated counon 58-76-6849VAJ corrected for nucl RBC Auto (Bld) [#/Vol]Leukocytes [#/volume] corrected for nucleated erythrocytes in Blood by Automated coun4.0-11.0[facility] DaytonLymphocytes Auto (Bld) [#/Vol]on 59-80-0325Ntzuocbzmwz (Bld) [#/Vol]Lymphocytes [#/volume] in Blood by Automated count1.2-3.8[facility] DaytonLymphocytes/100 WBC Auto (Bld)on 05-28-2024 Lymphocytes/100 WBC (Bld)Lymphocytes/100 leukocytes in Blood by Automated count 20.5-60.0[facility] HospitalH Auto (RBC) [Entitic mass]on 27-61-7855FJR (RBC) [Entitic mass]MCH [Entitic mass] by Automated count26.7-34.0 [facility] DaytonMCHC Auto (RBC) [Mass/Vol]on 07-69-6774ORJK (RBC) [Mass/Vol]MCHC [Mass/volume] by Automated count29.9-35.2FOhioHealth Arthur G.H. Bing, MD, Cancer CenterV Auto (RBC) [Entitic vol]on 05-11-8376IUZ (RBC) [Entitic vol] MCV [Entitic volume] by Automated count81.0-99.0[facility] DaytonMonocytes Auto (Bld) [#/Vol]on 94-70-4054Zeomxlqtr (Bld) [#/Vol]Automated blood monocyte count0.3-0.8[facility] DaytonMonocytes/100 WBC Auto (Bld)on 17-63-1011Tstcnakja/100 WBC (Bld)Automated monocyte %1.7-12.0 [facility] DaytonNeutrophils Auto (Bld) [#/Vol]on 05-28-2024 Neutrophils (Bld) [#/Vol]Neutrophils [#/volume] in Blood by Automated count 1.4-6.5FWhite HospitalNeutrophils/100 WBC Auto (Bld)on 69-60-4349Inqqspbaxjn/100 WBC (Bld)Automated neutrophil %43.0-75.0[facility] DaytonNo Panel Informationon 42-58-3263Htlhfuliytv # (Auto)0.1 10 3/uL0.0-0.7FWhite HospitalImmature Granulocyte # (Auto)0.01 10 3/uL0.00-0.03[facility] DaytonPlatelet mean volume Auto (Bld) [Entitic vol]on 13-24-4174Iicvnfal mean volume (Bld) [Entitic vol]Platelet mean volume [Entitic volume] in Blood by Automated count9.5-13.5FWhite HospitalPlatelets Auto (Bld) [#/Vol]on 57-40-8624Taywadkdj (Bld) [#/Vol]Platelets [#/volume] in Blood by Automated hlhid636-157LjmmzhajoKindred Hospital DaytonRBC Auto (Bld) [#/Vol]on 27-64-1846CPG (Bld) [#/Vol]Erythrocytes [#/volume] in Blood by Automated count4.20-5.40[facility] Serum or plasma albumin/globulin mass ratioon 31-36-6366Pefzrux/Globulin [Mass ratio]Serum or plasma albumin/globulin mass ratioOhioHealth Pickerington Methodist Hospitalerum or plasma anion gap determinationon 87-18-2197Vzoqv gap [Moles/Vol] Serum or plasma anion gap determinationOhioHealth Pickerington Methodist Hospitalerum or plasma total cholesterol/high density lipoprotein (HDL) cholesterol mass femi 92-68-5003Kegsozidkml.total/Cholesterol in HDL [Mass ratio]Serum or plasma total cholesterol/high density lipoprotein (HDL) cholesterol mass [facility] NorthComment on above:3.3 - 4.4 LOW RISK4.4 - 7.1 AVERAGE RISK7.1 - 11.0 MODERATE RISK>11.0 HIGH RISKLaboratory - Chemistry and Chemistry - challengeon 42-35-4305Tqhmdwylu Ql (U)NegativeKindred Hospital DaytonGlucose (U) [Mass/Vol]NegativeKindred Hospital DaytonKetones Ql (U)[facility] HospitalpH (U)5 [pH][facility]Health Pickerington Methodist Hospitalpecific gravity (U) [Rel density]1.005[facility] DaytonUrobilinogen (U) [Mass/Vol]0.2 mg/dLKindred Hospital Dayton Laboratory - Specimen informationon 36-65-9309Ziuyawjiep (U)clearKindred Hospital DaytonColor (U)yellowKindred Hospital Dayton Laboratory - Urinalysison 47-99-6624Yphuesspd esterase Test strip Ql (U)Negative [facility] DaytonNitrite Ql (U)NegativeKindred Hospital DaytonProtein Ql (U)NegativeKindred Hospital DaytonNo Panel Informationon 40-79-7848Heqae Occult Blood++[facility] Urine Cultureon 79-02-1054Yxmhbsqk identified Cx Nom (U)50,000 colonies/ml mixed bacterial skin contaminants 2 Days PERFORMED BY: [facility] [address] [place] [address] PATHOLOGIST RECEIVING INSPECTOR ZAC RAYO M.D.NormalWinter Haven Hospital Physician GroupComment on above: Performed By: #### CUU #### [place] [id number] USAUrine cultureOrdered By: Clair Dahl on 05-08-2024 Bacteria identified Cx Nom (U)Urine cultureKindred Hospital DaytonXR THORACOLUMBAR 2+ VIEWSon 92-27-1114GM THORACOLUMBAR 2+ VIEWSEXAMINATION: XR THORACOLUMBAR 2+ VIEWS 03/07/2024 2:10 pm [...] abnormality of the thoracolumbar spine is identified. [employer] Workstation ID: [id number] Dictated by: IVANNA CAMARILLO on SunMar 10, 2024 10:33:50 AM EST Transcribed by: DELIO RODAS on SunMar 10, 2024 11:16:22 AM EST Finalized by: IVANNA CAMARILLO on SunMar 10, 2024 3:29:17 PM [facility] DaytonComment on above:Order Comment: Thoracolumbar 2 view, AP and lateral, [...] 2022 Type of Exam?:Subsequent/Follow-up Additional signs and symptoms?:.XR shoulder RT min 2V*on 32-86-5523YM shoulder RT min 2V*[facility] [address] [place] [address] XRay Report Signed Patient: Verito Brennan MR#: [id number] : 1965 Acct:[id number] Age/Sex: 58 / F ADM Date: 07/03/23 Loc: [facility] Room: Type: [facility] Attending Dr: Tuan Gonzalez DO Copies to: [...] PROCESS. Impression dictated by: Chay Ash Jr., D.O.07/03/2023 3:13 PM Dictation Location: [place] [address] Transcribed By: [facility] 07/03/23 1513 Dictated By: Chay Ash Jr, DO 07/03/23 1506 Signed By: 07/03/23 1513[facility] Physician GroupBlood type and Indirect antibody screen panel (Bld)on 19-25-0468JUN and Rh group Nom (Bld)Blood group A Rh(D) negativeOhioHealthBlood group antibody screen QlNegativeOhioHealthSpecimen Cttsqev0108/27/2022 23:59 ESTOhioHealthOhioHealthXR OR T-Spine 1 Viewon 08-24-2022 Please see operative report for details. Workstation ID: [id number] RISEXAMINATION: XR OR T-SPINE 1 VIEW HISTORY: ORDERING [...] hardware/retractor overlying the lower thoracic spine. Spinal stimulatorlead noted. Alonso Johnston MD - 08/24/2022 EXAMINATION: XR OR T-SPINE [...] hardware/retractor overlying the lower thoracic spine. Spinal stimulatorlead noted. IMPRESSION: Please see operative report for details. Workstation ID: [id number] [facility] CenterRadiology Study observation (narrative)OhioHealthXR OR T-Spine 1 View Ordered By: Alonso Agustin on 83-55-7404WmmmDwqjxm Work Phone: MRI LSPINE WO CONon 47-92-1574FDP LSPINE WO CON EXAMINATION: MRI LSPINE WO [...] Electronically authenticated by: MAGGI RODRIGUEZ Date: 2022-05-10 08:[address] [place], [place] [address]XR Lumbar Spine Standard with Flex/Ext 4+ Viewson 04-22-2022 No significant interval change. Degenerative changes of the lumbar spine as described. No lumbar instability is detected on flexion or extension. Workstation ID: [id number] RISEXAMINATION: XR LUMBAR SPINE STANDARD WITH FLEX/EXT 4+ [...] lesions detected. The sacroiliac joints appear unremarkable. Yash Santiago MD - 04/22/2022 EXAMINATION: XR LUMBAR SPINE [...] on flexion or extension. Workstation ID: [id number] [facility] Lumbar Spine Standard with Flex/Ext 4+ ViewsOrdered By: Yash Marques on 86-60-6521DkayOsdpro Work Phone: xr Lumbar Spine Standard with Flex/Ext 4+ Viewson 36-93-6351Icvuhzxlh Study observation (narrative)[facility] ANKLE LT WO CONon 70-62-2585MUF ANKLE LT WO CONEXAM: MRI ANKLE LT WO CON REASON FOR EXAM: Plantar fascial fibromatosis. [...] Electronically authenticated by: SAMMIE ARTHUR Date: 2022-04-06 08:47[facility] HospitalBlood type and Indirect antibody screen panel (Bld)on 97-27-1819BTC and Rh group Nom (Bld)Blood group A Rh(D) negativeOhioHealthBlood group antibody screen QlNegativeOhioHealthSpecimen Cfnyony5101/16/2022 23:59 EST OhioHealthOhioHealthXR OR L-Spine 2-3 Viewson 01-13-2022 As above. Workstation ID: [id number] RISEXAMINATION: XR OR L-SPINE 2-3 VIEWS HISTORY: ORDERING [...] refer to separate operative report for details. Nehal Sher MD - 01/13/2022 EXAMINATION: XR OR L-SPINE [...] details. IMPRESSION: As above. Workstation ID: [id number] [facility] CenterRadiology Study observation (narrative)OhioHealthXR OR L-Spine 2-3 ViewsOrdered By: Nehal Beverly on 57-81-8118AwruTpombc Work Phone: cbc AUTO DIFFon 78-07-5558LFQB #0.0 103/ulNormal 0.0-0.1The [facility] CenterComment on above:Performed By: #### CBC #### [facility] [address] [place] [address] [address] Phoebe NyBasophils/100 WBC (Bld)0.2 %Normal0.2-2.0[facility] Comment on above:Performed By: #### CBC #### [facility] [address] [place] [address] [address] Phoebe Jones #0.2 103/ulNormal0.0-0.7The [facility] Medical CenterComment on above: Performed By: #### CBC #### [facility] [address] [address] [address] Phoebe Dobsonosinophils/100 WBC (Bld)2.7 %Normal0.9-7.0[facility] Comment on above:Performed By: #### CBC #### [facility] [address] [address] [address] Phoebe Dobsonrythrocyte distribution width (RBC) [Ratio]13.1 %Wjxyjv92.0-15.0 The [facility] Medical CenterComment on above:Performed By: #### CBC #### [facility] [address] [place] [address] Dr. Phoebe NyHematocrit (Bld) [Volume fraction]40.7 %Emxdqb64.0-48.0The [facility] CenterComment on above:Performed By: #### CBC #### [facility] [address] [place] [address] Dr. Phoebe NyHemoglobin (Bld) [Mass/Vol]13.6 g/aRKzzhzj19.0-16.0The [facility] CenterComment on above:Performed By: #### CBC #### [facility] [address] [place] [address] Dr. Phoebe Shelton #0.03 10e3/ulNormal0.00-0.03The [facility] Medical CenterComment on above:Performed By: #### CBC #### [facility] [address] [place] [address] Dr. Phoebe Shelton %0.4 %Normal0.0-0.5The [facility] CenterComment on above: Performed By: #### CBC #### [facility] [address] [place] [address] Dr. Phoebe Paul #3.0 103/ulNormal1.2-3.8The [facility] CenterComment on above:Performed By: #### CBC #### [facility] [address] [place] [address] Dr. Phoebe Rayhocytes/100 WBC (Bld)35.1 %Ufkztw27.5-60.0The [facility] CenterComment on above:Performed By: #### CBC #### [facility] [address] [place] [address] Dr. Phoebe EvansUAL DIFF REQNONormalThe [facility] CenterComment on above: Performed By: #### CBC #### [facility] [address] [place] [address] Dr. Phoebe Ramirez (RBC) [Entitic mass]31.1 wcNtnsld80.7-34.0The [facility] CenterComment on above:Performed By: #### CBC #### [facility] [address] [place] [address] Dr. Phoebe Choudhary (RBC) [Mass/Vol]33.4 g/wMGiiuvq21.9-35.2The [facility] CenterComment on above:Performed By: #### CBC #### [facility] [address] [place] [address] Dr. Phoebe Griffiths (RBC) [Entitic vol]92.9 jTKygaeh26.0-99.0The [facility] CenterComment on above:Performed By: #### CBC #### [facility] [address] [place] [address] Dr. Phoebe Samuels #0.7 103/ulNormal0.3-0.8The [facility] CenterComment on above:Performed By: #### CBC #### [facility] [address] [place] [address] Dr. Phoebe Wootenocytes/100 WBC (Bld)7.6 %Normal1.7-12.0The [facility] Comment on above:Performed By: #### CBC #### [facility] [address] [place] [address] Dr. Phoebe Huntley #4.6 103/ulNormal1.4-6.5The [facility] CenterComment on above:Performed By: #### CBC #### [facility] [address] [place] [address] Dr. Phoebe Kinneyutrophils/100 WBC (Bld)54.0 %Qrdprj94.0-75.0The [facility] CenterComment on above:Performed By: #### CBC #### [facility] [address] [place] [address] Dr. Phoebe Arechigalet mean volume (Bld) [Entitic vol]11.2 fLNormal9.5-13.5The [facility] CenterComment on above:Performed By: #### CBC #### [facility] [address] [place] [address] Dr. Phoebe GoodeT232 103/loYhxejx716-329Ats [facility] CenterComment on above: Performed By: #### CBC #### [facility] [address] [place] [address] Dr. Phoebe NyRBC4.38 106/ulNormal4.20-5.40The [facility] CenterComment on above:Performed By: #### CBC #### [facility] [address] [address] [address] Phoebe NyWBC8.6 103/ulNormal4.0-11.0The [facility] CenterComment on above: Performed By: #### CBC #### [facility] [address] [place] [address] [address] Phoebe Lang CHEST WO W CONon 02-57-5053YJC CHEST WO W CONEXAM: CTA CHEST WO W CON 01/03/2022 6:01 [...] Electronically authenticated by: JAMES TESFAYE Date: 2022-01-03 06:48NoSouthview Medical CenterPROF 14(COMP METB)on 65-76-4881Pwypswn [Mass/Vol]3.9 g/dLNormal 3.4-5.0The [facility] CenterComment on above:Performed By: #### CMP #### [facility] [address] [place], [place] [id number] Dr. Phoebe NyAlbumin/Globulin [Mass ratio]1.0 {ratio}NormalThe [facility] Medical CenterComment on above:Performed By: #### CMP #### [facility] [address] [place] [address] Dr. Phoebe KillianP [Catalytic activity/Vol]102 U/GPacwng82-646Ezi [facility] CenterComment on above:Performed By: #### CMP #### [facility] [address] [place] [address] Dr. Phoebe KillianT [Catalytic activity/Vol]24 U/ZRraana74-01Skv [facility] CenterComment on above:Performed By: #### CMP #### [facility] [address] [place] [address] Dr. Phoebe Goyalon gap [Moles/Vol]12.2 mmol/LNormalThe [facility] Comment on above:Performed By: #### CMP #### [facility] [address] [place] [address] Dr. Phoebe NyAST [Catalytic activity/Vol]10 U/LCritically ihd77-91Vjv [facility] CenterComment on above:Performed By: #### CMP #### [facility] [address] [place] [address] Dr. Phoebe NyBilirubin [Mass/Vol]0.3 mg/dLNormal0.2-1.0The [facility] Comment on above:Performed By: #### CMP #### [facility] [address] [place] [address] Dr. Phoebe NyCalcium [Mass/Vol]9.0 mg/dLNormal8.5-10.1The [facility] Comment on above:Performed By: #### CMP #### [facility] [address] [place] [address] Dr. Phoebe NyChloride [Moles/Vol]104 mmol/TZqdhcb84-712Mbv [facility] Comment on above:Performed By: #### CMP #### [facility] [address] [place] [address] Dr. Phoebe NyCO2 [Moles/Vol]25.0 mmol/QYhufyv45.0-32.0The [facility] Comment on above:Performed By: #### CMP #### [facility] [address] [place] [address] Dr. Phoebe NyCreatinine [Mass/Vol]1.06 mg/dLCritically high0.55-1.02The [facility] CenterComment on above:Performed By: #### CMP #### [facility] [address] [place] [address] Dr. Phoebe DobsonGFR-AF CYMRO>60Normal>=60The [facility] CenterComment on above:Performed By: #### CMP #### [facility] [address] [place] [address] Dr. Phoebe DobsonGFR-NON AF CYGPQYBY46 mL/min/1.46r0Cwwxqwtafp low>=60The [facility] CenterComment on above:Performed By: #### CMP #### [facility] [address] [place] [address] Dr. Phoebe NyGlobulin (S) [Mass/Vol]3.9 g/dLNormalThe [facility] CenterComment on above:Performed By: #### CMP #### [facility] [address] [place] [address] Dr. Phoebe NyGlucose [Mass/Vol]114 mg/dLCritically lcto41-489Qyh [facility] CenterComment on above:Performed By: #### CMP #### [facility] [address] [place] [address] Dr. Phoebe NyPotassium [Moles/Vol]4.2 mmol/LNormal3.5-5.1The [facility] Comment on above:Performed By: #### CMP #### [facility] [address] [place] [address] Dr. Phoebe NyProtein [Mass/Vol]7.8 g/dLNormal6.4-8.2The [facility] Comment on above:Performed By: #### CMP #### [facility] [address] [place] [address] Dr. Phoebe NySodium [Moles/Vol]137 mmol/MTdtknt907-386XzhBlanchard Valley Health System Comment on above:Performed By: #### CMP #### [facility] [address] [address] [address] Phoebe Swanson nitrogen [Mass/Vol]23.0 mg/dLCritically high7.0-18.0[facility] SystemComment on above:Performed By: #### CMP #### [facility] [address] [place] [address] Dr. Phoebe Swanson nitrogen/Creatinine [Mass ratio]21.7 mg/mgNormalThe [facility] CenterComment on above:Performed By: #### CMP #### [facility] [address] [place] [address] Dr. Phoebe Reynoso, HIGH SENSITIVITYon 53-04-8512UUVKFY4.5 pg/mLNormal 4.0-51.3The [facility] CenterComment on above:Result Comment: CUT-OFF POINTS HAVE BEEN ESTABLISHED BASED ON THE FOURTH UNIVERSAL DEFINITIONS OF MYOCARDIAL INFARCTION. THE UPPER REFERENCE LIMIT (URL) OF TROPONIN, DEFINED THE 99TH PERCENTILE OF cTnI DISTRIBUTION IN A REFERENCE POPULATION, HAS BEEN CONFIRMED THE DECISION THRESHOLD FOR SC DIAGNOSIS.Performed By: #### HSTROPN #### [facility] [address] [place] [address] Dr. Phoebe Weiner KATIE ADMITon 83-28-1637KE [Catalytic activity/Vol]116 U/L Wgyzst45-383EclBlanchard Valley Health SystemComment on above:Performed By: #### CMADM, BMP #### [facility] [address] [place] [address] Dr. Phoebe Barrera.MB [Mass/Vol]1.67 ng/mLNormal<=3.60[facility] Comment on above:Performed By: #### CMADM, BMP #### [facility] [address] [place] [address] Dr. Phoebe NyHSTROP7.9 pg/mLNormal4.0-51.3TSelect Medical Specialty [facility] on above:Result Comment: CUT-OFF POINTS HAVE BEEN ESTABLISHED BASED ON THE FOURTH UNIVERSAL DEFINITIONS OF MYOCARDIAL INFARCTION. THE UPPER REFERENCE LIMIT (URL) OF TROPONIN, DEFINED THE 99TH PERCENTILE OF cTnI DISTRIBUTION IN A REFERENCE POPULATION, HAS BEEN CONFIRMED THE DECISION THRESHOLD FOR SC DIAGNOSIS.Performed By: #### SHAWN BMP #### [facility] [address] [place] [address] Dr. Phoebe AguayoO43 ng/mLNormal9-82The [facility] CenterComment on above: Performed By: #### SHAWN BMP #### [facility] [address] [place] [address] Dr. Phoebe Sebastian AUTO DIFFon 93-56-1880XHET #0.0 103/ulNormal0.0-0.1The St. Elizabeth Hospitalment on above:Performed By: #### CBC #### [facility] [address] [place] [address] Dr. Phoebe NyBasophils/100 WBC (Bld)0.2 %Normal0.2-2.0[facility] Comment on above:Performed By: #### CBC #### [facility] [address] [place] [address] Dr. Phoebe Jones #0.0 103/ulNormal0.0-0.7The [facility] CenterComment on above: Performed By: #### CBC #### [facility] [address] [place] [address] Dr. Phoebe Dobsonosinophils/100 WBC (Bld)0.2 %Critically low0.9-7.0The [facility] Medical CenterComment on above:Performed By: #### CBC #### [facility] [address] [place] [address] Dr. Phoebe Dobsonrythrocyte distribution width (RBC) [Ratio]13.2 %Skqzzt31.0-15.0 The [facility] CenterComment on above:Performed By: #### CBC #### [facility] [address] [place] [address] Dr. Phoebe NyHematocrit (Bld) [Volume fraction]40.7 %Ovomya57.0-48.0The [facility] CenterComment on above:Performed By: #### CBC #### [facility] [address] [place] [address] Dr. Phoebe NyHemoglobin (Bld) [Mass/Vol]13.6 g/bXApxbbg46.0-16.0The [facility] on above:Performed By: #### CBC #### [facility] [address] [place] [address] Dr. Phoebe Shelton #0.03 10e3/ulNormal0.00-0.03The [facility] CenterComment on above:Performed By: #### CBC #### [facility] [address] [place] [address] Dr. Phoebe Shelton %0.3 %Normal0.0-0.5The [facility] CenterComsurgeons choice medical center on above: Performed By: #### CBC #### [facility] [address] [place] [address] Dr. Phoebe Paul #3.8 103/ulNormal1.2-3.8The [facility] CenterComment on above:Performed By: #### CBC #### [facility] [address] [place] [address] Dr. Phoebe Rayhocytes/100 WBC (Bld)41.2 %Hopitc51.5-60.0The [facility] on above:Performed By: #### CBC #### [facility] [address] [place] [address] Dr. Phoebe EvansUAL DIFF REQNONormalThe [facility] CenterComment on above: Performed By: #### CBC #### [facility] [address] [place] [address] Dr. Phoebe Choudhary (RBC) [Entitic mass]30.8 awUmjfss00.7-34.0The [facility] CenterComment on above:Performed By: #### CBC #### [facility] [address] [place] [address] Dr. Phoebe Choudhary (RBC) [Mass/Vol]33.4 g/wEWxrbld59.9-35.2The [facility] CenterComment on above:Performed By: #### CBC #### [facility] [address] [place] [address] Dr. Phoebe ChoudharyV (RBC) [Entitic vol]92.1 fVLfmryh84.0-99.0The [facility] on above:Performed By: #### CBC #### [facility] [address] [place] [address] Dr. Phoebe Samuels #0.6 103/ulNormal0.3-0.8The [facility] CenterComment on above:Performed By: #### CBC #### [facility] [address] [place] [address] Dr. Phoebe Wootenocytes/100 WBC (Bld)6.9 %Normal1.7-12.0The [facility] Comment on above:Performed By: #### CBC #### [facility] [address] [place] [place] [address] Dr. Phoebe Huntley #4.7 103/ulNormal1.4-6.5The [facility] Hospitalment on above:Performed By: #### CBC #### [facility] [address] [place] [address] Dr. Phoebe Kinneyutrophils/100 WBC (Bld)51.2 %Aqxixe21.0-75.0The [facility] Hospitalment on above:Performed By: #### CBC #### [facility] [address] [place] [address] Dr. Phoebe Arechigalet mean volume (Bld) [Entitic vol]11.9 fLNormal9.5-13.5The [facility] on above:Performed By: #### CBC #### [facility] [address] [place] [address] Dr. Phoebe NyPLT199 103/joSyruzs499-311Ehq [facility]ment on above: Performed By: #### CBC #### [facility] [address] [place] [address] Dr. Phoebe NyRBC4.42 106/ulNormal4.20-5.40The [facility]ment on above:Performed By: #### CBC #### [facility] [address] [address] [address] Phoebe NyWBC9.2 103/ulNormal4.0-11.0The [facility] CenterComment on above: Performed By: #### CBC #### [facility] [address] [address] [address] Phoebe NyPROF CHEM 8 (BAS METB)on 98-36-0304Iqyua gap [Moles/Vol]12.5 mmol/LNormalThe Harmony HospitalComment on above:Performed By: #### CMADM, BMP ####[facility] [address] [address]Dr. Yilan ChangCalcium [Mass/Vol]9.6 mg/dLNormal8.5-10.1The [facility] CenterComment on above:Performed By: #### CMADM, BMP ####[facility] [address] [address]Dr. Yilan ChangChloride [Moles/Vol]103 mmol/POellcv32-932Qks [facility] CenterComment on above:Performed By: #### CMADM, BMP ####[facility] [address] [place], [place] [address]Dr. Yilan ChangCO2 [Moles/Vol]25.9 mmol/QBzihhy40.0-32.0The [facility] CenterComment on above:Performed By: #### CMADM, BMP ####[facility] [address] [place], [place] [address]Dr. Yilan ChangCreatinine [Mass/Vol]0.83 mg/dLNormal0.55-1.02The [facility] CenterComment on above: Performed By: #### CMADM, BMP ####[facility] [address] [place], [place] [address]Dr. Yilan ChangEGFR-AF CYMRO>60Normal>=60The [facility] CenterComment on above:Performed By: #### CMADM, BMP ####[facility] [address] [place], [place] [address]Dr. Yilan ChangEGFR- NON AF CYMRO>60Normal>=60The [facility] CenterComment on above:Performed By: #### SHAWN, BMP ####[facility] [address] [address]Dr. Yilan ChangGlucose [Mass/Vol]127 mg/dLCritically ewdp46-757Vfj [facility] CenterComment on above:Performed By: #### SHAWN, BMP ####[facility] [address] [address]Dr. Yilan Ny Potassium [Moles/Vol]3.4 mmol/LCritically low3.5-5.1The [facility] CenterComment on above:Performed By: #### SHAWN, BMP ####[facility] [address] [address]Dr. Yilan ChangSodium [Moles/Vol]138 mmol/L Wqlnbz568-228Zzw [facility] CenterComment on above:Performed By: #### SHAWN, BMP ####[facility] [address] [address]Dr. Yilan ChangUrea nitrogen [Mass/Vol]10.0 mg/dLNormal7.0-18.0The [facility] Comment on above:Performed By: #### SHAWN, BMP ####[facility] [address] [address]Dr. Yilan ChangUrea nitrogen/Creatinine [Mass ratio]12.0 mg/mgNoSouthview Medical CenterComment on above:Performed By: #### SHAWN, BMP ####[facility] [address] [address]Dr. Yilan ChangXR CHEST 1 Von [id number] CHEST 1 VCXR HISTORY: Chest pain COMPARISON: None. TECHNIQUE: 1 view chest submitted for review. FINDINGS: The lungs are hyper expanded without evidence of acute infiltrate or effusion. The cardiac silhouette measures within normal. Pulmonary vascularity is unremarkable. Osseous structures are within normal limits for age. IMPRESSION: No plain film evidence for acute cardiopulmonary disease. Electronically authenticated by: NANCY MARTEL Date: 2021-08-03 22:30[facility] HospitalBasi metabolic 2000 panelon [id number] gap [Moles/Vol]7 mmol/LLow10 - 20 mmol/LOhioHealthCalcium [Mass/Vol]9.6 mg/dL8.4 - 10.2 mg/dL OhioHealthChloride [Moles/Vol]108 mmol/L98 - 108 mmol/LOhioHealthCreatinine [Mass/Vol]0.74 mg/dL0.40 - 1.10 mg/dLOhioHealthGFR/1.73 sq M.predicted CKD-EPI (S/P/Bld) [Vol rate/Area]90- PINFOhioHealthGlucose [Mass/Vol]89 mg/dL65 - 99 mg/dLOhioHealthHCO3 [Moles/Vol]29 mmol/L21 - 32 mmol/LOhioHealthInterpretation and review of laboratory resultsAbnormalOhioHealthPotassium [Moles/Vol]4.2 mmol/L3.5 - 5.1 mmol/LOhioHealthSodium [Moles/Vol]140 mmol/L135 - 145 mmol/L OhioHealthUrea nitrogen [Mass/Vol]8 mg/dL8 - 25 mg/dLOhioHealthUrea nitrogen/Creatinine [Mass ratio]10.8 mg/mg10 - 20OhioHealthThe eGFR should be used for monitoring renal function only and not for medication dosing.[facility] Lipid 1995 panelon 96-50-1742Cfdlbgdwldk [Mass/Vol]191 mg/dL100 - 199 mg/dL OhioHealthComment on above:National Cholesterol Education Program Guidelines: Cholesterol Desirable: <200 mg/dL Borderline High: 200-239 mg/dL High: greater than or equal to 240 mg/dL Cholesterol in HDL [Mass/Vol]56 mg/dL40 - 59 mg/dLOhioHealthComment on above: National Cholesterol Education Program Guidelines: HDL Cholesterol Low: <40 mg/dL Near Optimal: 40-59 mg/dL High: greater than or equal to 60 mg/dL Cholesterol in LDL [Mass/Vol]122 mg/dL10 - 130 mg/dLOhioHealthComment on above: National Cholesterol Education Program Guidelines: LDL Cholesterol Optimal: <100 mg/dL Near Optimal/above Optimal: 100-129 mg/dL Borderline High: 130-159 mg/dL High: 160-189 mg/dL Very High: greater than or equal to 190 mg/dL Cholesterol non HDL [Mass/Vol]135 mg/dLOhioHealthComment on above:National Cholesterol Education Program Guidelines: NON HDL Cholesterol Desirable: <130 mg/dL Borderline High: 130-159 mg/dL High: 160-189 mg/dL Very High: > or = 190 mg/dL Cholesterol.total/Cholesterol in HDL [Mass ratio]3.4 {ratio}ratioOhioHealth Comment on above:Female Cholesterol/HDL Ratio: Average risk: 4.4 1/2 average risk: 3.3 2 x average risk: 7.1 Triglyceride [Mass/Vol]66 mg/dL30 - 150 mg/dLOhioHealthComment on above:National Cholesterol Education Program Guidelines: Triglyceride Normal: <150 mg/dL Borderline High: 150-199 mg/dL High: 200-499 mg/dL Very High: greater than or equal to 500 mg/dL No Panel Informationon [id number]ny completeon 07-06-2021 Aortic valve area2.75446tvPxzxOslsbjJL mean yyylcyrk7dfBlXmlxRgfdjeSN85.7172 % OhioHealthPatient Info Name: VERITO BRENNAN Age: 56 years : 1965 Gender: Female Ht: 178 cm Wt: 100 kg BSA: 2.25 m2 HR: 100 bpm BP: 133 / 78 mmHg Heart Rhythm: Left Bundle Branch Block, Tachycardia, Sinus Rhythm Technical Quality: Fair Exam Date: 07/05/2021 1:52 PM Patient Status: Outpatient Batt Packer: Whitley Madison, CE, T Exam Type: ECHOCARDIOGRAM COMPLETE Study Info Indications - Abnormal electrocardiogram [ECG] [EKG] Attending Physician: VIJAY ACUNA ([id number]) Referring Physician: VIJAY ACUNA (wilton/[id number]); [phone] BMI: 31.57 kg/m2 Summary 1. Mildly dilated [...] Scoring Index: 2.29 Left Ventricular Outflow Tract Name Value Normal LVOT 2D LVOT Diameter 2.0 cm LVOT Doppler LVOT Peak Velocity 1.1 m/s LVOT Mean Gradient 2 mmHg LVOT VTI 22 cm LVOT VTI/AV VTI Ratio 0.8 LVOT Stroke Volume 68 ml LVOT Stroke Index 30.30 ml/m2 Pulmonic Valve Name Value Normal PV 2D RVOT Diameter (2D) 1.7 cm 1.7-2.7 RVOT Doppler RVO (more content not included)...Vijay Currie MD - 07/06/2021 Patient Info Name: VERITO BRENNAN Age: 56 years : 1965 Gender: Female Ht: 178 cm Wt: 100 kg BSA: 2.25 m2 HR: 100 bpm BP: 133 / 78 mmHg Heart Rhythm: Left Bundle Branch Block, Tachycardia, Sinus Rhythm Technical Quality: Fair Exam Date: 07/05/2021 1:52 PM Patient Status: Outpatient Batt Packer: Whitley Madison RDCS, RVT Exam Type: ECHOCARDIOGRAM COMPLETE Study Info Indications - Abnormal electrocardiogram [ECG] [EKG] Attending Physician: VIJAY ACUNA ([id number]) Referring Physician: VIJAY ACUNA ([id number]); [id number] BMI: 31.57 kg/m2 Summary 1. Mildly dilated [...] Scoring Index: 2.29 Left Ventricular Outflow Tract Name Value Normal LVOT 2D LVOT Diameter 2.0 cm LVOT Doppler LVOT Peak Velocity 1.1 m/s LVOT Mean Gradient 2 mmHg LVOT VTI 22 cm LVOT VTI/AV VTI Ratio 0.8 LVOT Stroke Volume 68 ml LVOT Stroke Index 30.30 ml/m2 Pulmonic Valve Name Value Normal PV 2D RVOT Diameter (2D) 1.7 cm 1.7-2.7 RVOT Doppler RVOT Peak Velocity 76 cm/s RVOT Mean Gradient 1 mmHg RVOT VTI 14 cm PV Doppler PV Peak Velocity 1.16 m/s PV Mean Gradient 2 mmHg PV VTI 18 cm PV Area (Cont Eq VTI) 1.8 cm2 PV Area Index (Cont Eq VTI) 0.80 cm2/m2 PV Area (Cont Eq Viral) 1.5 cm2 PV Area Index (Cont Eq Viral) 0.66 cm2/m2 (more content not included)...[facility] CenterOhioHealthEchocardiogram completeon [id number] Study observation (narrative)[facility] CenterXR Lumbar Spine Standard with Flex/Ext 4+ Viewson 03-08-2021 1. No fracture. 2. Moderate degenerative changes of the lumbar spine as detailed above. Workstation ID: [id number] RISEXAMINATION: XR LUMBAR SPINE STANDARD WITH FLEX/EXT 4+ VIEWS 03/07/2021 12:15 pm HISTORY: ORDERING SYSTEM PROVIDED HISTORY: Lumbar radiculopathy, TECHNOLOGIST PROVIDED HISTORY: Illness/Other Reason for exam: low back pain Cancer History: u Surgery, RadiationHistory: u Encounter Type: Initial Additional signs and symptoms: pt states she broke her back in the ORDERING SYSTEM PROVIDED DIAGNOSIS CODES: M54.16 Lumbar radiculopathy FINDINGS: BONES: Mild left convex curvature of the lumbar spine. Grade 1 retrolisthesis of L2 on 3 without appreciable change in alignment during flexion and extension. Mild-moderate degenerative facet arthropathy L4-5, L5-S1. DISC SPACES: Moderate narrowing L2-3, L3-4. PARASPINOUS:No paraspinous abnormality is seen. OTHER: Negative. Maggi Carlton MD - 03/08/2021 EXAMINATION: XR LUMBAR SPINE STANDARD WITH FLEX/EXT 4+ VIEWS 03/07/2021 12:15 pm HISTORY: ORDERING SYSTEM PROVIDED HISTORY: Lumbar radiculopathy, TECHNOLOGIST PROVIDED HISTORY: Illness/Other Reason for exam: low back pain Cancer History: u Surgery, RadiationHistory: u Encounter Type: Initial Additional signs and symptoms: pt states she broke her back in the 's ORDERING SYSTEM PROVIDED DIAGNOSIS CODES: M54.16 Lumbar [...] lumbar spine as detailed above. Workstation ID: [id number] Lumbar Spine Standard with Flex/Ext 4+ Views Ordered By: Maggi Rodriguez on [id number] Work Phone: XR Lumbar Spine Standard with Flex/Ext 4+ Viewson [id number] Study observation (narrative)[facility] Vital Signs Date TimeVital SignValuePerforming LhoponwccBwpkdzym40-28-8040 10:49-0400Body ckzfyn918.8 cmVdutch Acuna MD Work Phone: 1(325) [phone]czyft70-71-7263 10:49-0400Diastolic blood slcfxhji95 mm[Hg]Vijay Acuna MD Work Phone: BcqcMtltih15-230806YutaRhaess32-94-6566 10:49-0400Heart rate86 /min Vijay Acuna MD Work Phone: 1(747) [phone]liuvn57-79-0486 10:49-2915PyL0% (BldA) [Mass fraction]98 %Vijay Acuna MD Work Phone: IsomZnebtk27-952434QxuaEdawkr26-22-7611 10:49-0400Systolic blood pressure 134 mm[Hg]Vijay Acuna MD Work Phone: 1(396) [phone]kweri46-89-5891 13:27-0400Body zxlwhkqepwp73.06 [degF]Justin DE JESUS [facility]05-20-2025 13:27-0400Diastolic blood gmqnerjb66 mm[Hg]Justin DE JESUS [facility]05-20-2025 13:27-0400Heart rate93 /minPatrick DE JESUS [facility]05-20-2025 13:27-0400Respiratory rate16 /minPatrick NEAL [facility]05-20-2025 13:27-0400Systolic blood vdcergkq094 mm[Hg]Justin DE JESUS [facility]05-12-2025 13:57-0400Body .8 cmClair Dahl MD Work Phone: [facility]05-12-2025 13:57-0400 Body mass index (BMI) [Ratio]36.8 kg/l8QjoisbClair Dahl MD Work Phone: [facility]05-12-2025 13:57-0400 Body dssxyrqbkbr69.5 [degF]Clair Dahl MD Work Phone: [facility]05-12-2025 13:57-0400 Body nsqtse500.34 kgClair Dahl MD Work Phone: [facility]05-12-2025 13:57-0400 Diastolic blood jhtaxiab34 mm[Hg]Clair Dahl MD Work Phone: [facility]05-12-2025 13:57-0400 Heart rate85 /Cathi Dahl MD Work Phone: [phone])[address]05-12-2025 13:57-0400 SaO2% (BldA) [Mass fraction]97 %Clair Dahl MD Work Phone: [phone])[address] [place], [place] [address]5-12-2025 13:57-0400 Systolic blood czapsmzj194 mm[Hg]Clair Dahl MD Work Phone: [phone])[address] [place], [place] 349[address]3-21-2025 11:26-0400 Body bdygvf346.8 cmClair Dahl MD Work Phone: [phone])[address] [place], [place] 349[address]3-21-2025 11:26-0400 Body mass index (BMI) [Ratio]37 kg/m8UwkqtnClair Dahl MD Work Phone: [phone])[address] [place], [place] 349[address]3-21-2025 11:26-0400 Body pfuvzw291.02 kgClair Dahl MD Work Phone: [phone])[address] [place], [place] [address]3-21-2025 11:26-0400 Diastolic blood mm[Hg]Clair Dahl MD Work Phone: 1(109)[address] [place], [place] 349[address]3-21-2025 11:26-0400 Heart rate96 /Cathi Dahl MD Work Phone: 1(124)[address] [place], [place] 349[address]3-21-2025 11:26-0400 Systolic blood gpdnuyot734 mm[Hg]Clair Dahl MD Work Phone: [phone])[address] [place], [place] 349[address]10-17-2024 10:43-0400 Body lghkxa062.8 cmGiovani Maria DPM Work Phone: [facility] HospitalAnwfgsjlfx19-05-4819 10:43-0400Body mass index (BMI) [Ratio]31.71 kg/k4DwyfcvpsGiovani Maria DPM Work Phone: [facility] HospitalAwltierejo72-24-4212 10:43-0400Body semhfw552.25 kgGiovani Maria DPM Work Phone: [facility] HospitalYtrwtohrcv70-53-6571 10:43-0400Diastolic blood toexzwjv59 mm[Hg]Giovani Maria DPM Work Phone: [facility] HospitalIwsufcuhro13-32-5803 10:43-0400Heart rate79 /min Giovani Maria DPM Work Phone: [address] [address]Xcjvzcmjyv06-46-9530 10:43-0400Systolic blood qwsjtowv375 mm[Hg]Giovani Maria DPM Work Phone: [facility] HospitalHnrmxkrctt15-65-4323 12:08-0400Body guhawa016.8 cmGiovani Maria DPM Work Phone: [address] [address]Yqgxyesovh49-96-2038 12:08-0400Body mass index (BMI) [Ratio]31.71 kg/p7NosoixptGiovani Maria DPM Work Phone: [facility] HospitalSrsrkvoawz72-49-7215 12:08-0400Body .25 kgGiovani Maria DPM Work Phone: [facility] HospitalHyqwelxfst78-95-1786 12:08-0400Diastolic blood mm[Hg]Giovani Maria DPM Work Phone: [address] [address]Tdjepgemuk50-59-0714 12:08-0400Heart rate75 /min Giovani Maria DPM Work Phone: [address] [address]Aggoxereyr43-95-1362 12:08-0400Respiratory rate18 /minGiovani Obey DPM Work Phone: [address] [address]Qanxnhnfns21-84-9775 12:08-0400Systolic blood epwbtwon909 mm[Hg]Giovani Maria DPM Work Phone: [address] [address]Viiduxrdhg96-15-0933 11:15-0400Body otuxzn373.8 cmGiovani Maria DPM Work Phone: [address] [place] [address]Dqdnrgywcl96-38-7538 11:15-0400Body mass index (BMI) [Ratio]31.71 kg/q0XdvxqkfhGiovani Maria DPM Work Phone: [address] [place] [address]Qlmsgsdgjf42-56-8351 11:15-0400Body gsmdek697.25 kgGiovani Maria DPM Work Phone: [facility] HospitalMkxzjttevn36-58-4370 11:15-0400Diastolic blood yfdvjoat19 mm[Hg]Giovani Maria DPM Work Phone: [facility] HospitalYtyjmvyvlp91-04-5721 11:15-0400Heart rate74 /min Giovani Maria DPM Work Phone: [facility] HospitalAphdsiqmia40-52-9381 11:15-0400Respiratory rate18 /minLeighannskye Maria DPM Work Phone: [facility] HospitalMenwcfywmv82-69-7311 11:15-0400Systolic blood fjmsranb205 mm[Hg]Giovani Maria DPM Work Phone: [facility] HospitalOsbrwcavqd87-67-4665 10:45-0400Body eggijd640.8 cmGiovani Obey DPM Work Phone: [facility] HospitalFhbszbzfwf91-99-2255 10:45-0400Body mass index (BMI) [Ratio]31.71 kg/u1Hzcwczxk Obey DPM Work Phone: [facility] HospitalFtgezqmljj68-01-5422 10:45-0400Body .25 kgLeighannskye Maria DPM Work Phone: [facility] HospitalEjbhgfjahg16-10-4791 10:45-0400Diastolic blood wgwcmguj64 mm[Hg]Giovani Maria DPM Work Phone: [facility] HospitalGrhxwnhddq75-05-5286 10:45-0400Heart rate78 /min Giovani Maria DPM Work Phone: [facility] HospitalAepmmsqsbx74-90-5033 10:45-0400Systolic blood oywzptdr789 mm[Hg]Giovani Maria DPM Work Phone: [facility] HospitalPwwfvhimbq08-70-9735 11:22-0400Body .8 cm[facility]04-19-2024 11:22-0400Body mass index (BMI) [Ratio]34.4 kg/u8StwdfbiiqKindred Hospital [facility]04-19-2024 11:22-0400Body .86 kgKind[facility] Hospital [facility]04-19-2024 11:22-0400Diastolic blood mm[Hg][facility]04-19-2024 11:22-0400 Heart rate79 /minKindred Hospital [facility]04-19-2024 11:22-0400Systolic blood mm[Hg][facility]04-16-2024 13:34-0400 Body hqcriz617.8 Uma Acuna MD Work Phone: 1([phone]sfmlu45-33-1968 13:34-0400Body mass index (BMI) [Ratio]34.15 kg/q5UczpkxrgmfVijay Acuna MD Work Phone: XutzHlfawk53-117176GgyePahkbg04-13-7899 13:34-0400Body eguaif977.96 kg Vijay Acuna MD Work Phone: WfmwRoicaj18-773002EbujLhfzbb23-30-2409 13:34-0400Diastolic blood wsvczlny79 mm[Hg]Vijay Acuna MD Work Phone: YeqqIerwza67-074311MdpaIodczb70-51-8231 13:34-0400Heart rate74 /min Vijay Acuna MD Work Phone: InsbPtvnrv48-228628AwwqNamyvx92-42-0241 13:34-7960PrH2% (BldA) [Mass fraction]93 %Vijay Acuna MD Work Phone: 1(195) [phone]xfkji05-93-8408 13:34-0400Systolic blood pressure 123 mm[Hg]Vijay Acuna MD Work Phone: 1(178) [phone]zvktr13-31-6795 11:30-0500Body .8 cm Clair Dahl Other [employer] Other 12-21-2023 11:30-0500Body mass index (BMI) [Ratio] 33.72 kg/v7RxeixaClair Dahl Other [employer] Other 12-21-2023 11:30-0500Body etrhldhqgpb91.2 [degF]Clair Dahl Other [employer] Other 12-21-2023 11:30-0500Body .6 kgClair Nabila Other [employer] Other 12-21-2023 11:30-0500Diastolic blood gdmnkxjy36 mm[Hg] Clair Dahl Other [employer] Other 12-21-2023 11:30-5040UhF7% (BldA) [Mass fraction]97 % Clair Dahl Other [employer] Other 12-21-2023 11:30-0500Systolic blood vfbicvxn980 mm[Hg] Clair Dahl Other [employer] Other 11-30-2023 11:30-0500Body gdzcle349.8 cmClair Dahl Other [employer] Other 11-30-2023 11:30-0500Body mass index (BMI) [Ratio] 33.72 kg/h9JjctvkClair Dahl Other [employer] Other 11-30-2023 11:30-0500Body ggnfyz522.6 kgClair Dahl Other [employer] Other 11-30-2023 11:30-0500Diastolic blood lobznqmj17 mm[Hg] Clair Dahl Other [employer] Other 11-30-2023 11:30-0500Systolic blood snkeaejv149 mm[Hg] Clair Dahl Other [employer] Other 11-07-2023 14:15-0500Body ficawv118.8 cmClair Dahl Other [employer] Other 11-07-2023 14:15-0500Body mass index (BMI) [Ratio] 34.09 kg/u7TbcjxhClair Dahl Other [employer] Other 11-07-2023 14:15-0500Body tklcxnpfoby14.6 [degF]Clair aDhl Other [employer] Other 11-07-2023 14:15-0500Body .78 kgClair Dahl Other [employer] Other 11-07-2023 14:15-0500Diastolic blood zgaefdjg17 mm[Hg] Clair Dahl Other [employer] Other 11-07-2023 14:15-0500Systolic blood hqseyjsx020 mm[Hg] Clair Dahl Other [employer] Other 10-11-2023 11:30-0400Body .8 cmClair Dahl Other [employer] Other 10-11-2023 11:30-0400Body mass index (BMI) [Ratio] 34.06 kg/s6ShxitsClair Dahl Other [employer] Other 10-11-2023 11:30-0400Body xdekmo452.68 kgClair Dahl Other [employer] Other 10-11-2023 11:30-0400Diastolic blood rhzddcij77 mm[Hg] Clair Dahl Other [employer] Other 10-11-2023 11:30-0400Systolic blood ypkccqow400 mm[Hg] Clair Dahl Other [employer] Other 10-10-2023 13:55-0400Body .9 [degF] Caroline Fair PA-C Work Phone: 1(159) [phone]kievv45-77-3497 13:55-0400Diastolic blood zttpabmp16 mm[Hg]Caroline Fair PA-C Work Phone: 1(879) [phone]ssjWcuypd34-00-7116 13:55-0400Heart rate78 /min Caroline Fair PA-C Work Phone: 1(193) [phone]whtur30-72-7980 13:55-0400Respiratory rate18 /min Caroline Fair PA-C Work Phone: 1(959) [phone]iOojctx17-26-8345 13:55-6913BxE2% (BldA) [Mass fraction]98 %Caroline Fair PA-C Work Phone: 1(993) [phone]ipfaj54-56-3275 13:55-0400Systolic blood pressure 142 mm[Hg]Caroline Fair PA-C Work Phone: 1(844) [phone]sUoayec07-07-7178 12:54-0400Diastolic blood rhqlqwaa58 mm[Hg]Caroline Fair PA-C Work Phone: 1(696) [phone]dcTgiwll96-56-7044 12:54-0400Heart rate75 /min Caroline Fair PA-C Work Phone: 1(531) [phone]jfxrr22-74-6757 12:54-0400Respiratory rate16 /min Caroline Fair PA-C Work Phone: 1(211) [phone]itdym92-61-2628 12:54-3287LbQ8% (BldA) [Mass fraction]97 %Caroline Fair PA-C Work Phone: 1(969) [phone]mftli89-46-8318 12:54-0400Systolic blood pressure 121 mm[Hg]Caroline Fair PA-C Work Phone: 1(927) [phone]hubyb98-76-5138 11:00-0400Body exvkqp316.8 cm Clair Dahl Other [employer] Other 08-31-2023 11:00-0400Body mass index (BMI) [Ratio] 34.03 kg/o2Tpzlcb Nabila Other [employer] Other 08-31-2023 11:00-0400Body autdan595.59 kgClair Nabila Other [employer] Other 08-31-2023 11:00-0400Diastolic blood wzoiwuqk13 mm[Hg] Clair Dahl Other [employer] Other 08-31-2023 11:00-0400Systolic blood hwtmptni098 mm[Hg] Clairisak Dahl Other [employer] Other 08-30-2023 13:30-0400Diastolic blood pftvtejb84 mm[Hg] Caroline Fair PA-C Work Phone: 1(825) [phone]ldnxs06-80-6067 13:30-0400Heart rate78 /min Caroline Fair PA-C Work Phone: 1(391) [phone]mysam16-85-7983 13:30-0400Respiratory rate18 /min Caroline Fair PA-C Work Phone: 1(823) [phone]euzmu94-42-3267 13:30-9814WzJ0% (BldA) [Mass fraction]97 %Caroline Fair PA-C Work Phone: 1(267) [phone]gfdwj85-25-4946 13:30-0400Systolic blood pressure 111 mm[Hg]Caroline Fair PA-C Work Phone: 1(762) [phone]hxxfa40-19-3624 11:40-0400Body lsslgzuhlqk47.01 [degF]Dionna Corrigan CNP Work Phone: 1(512) [phone]bAxzagl59-90-3903 11:40-0400Diastolic blood mm[Hg]Dionna Corrigan CNP Work Phone: 1(686) [phone]nabJvpbls79-57-2170 11:40-0400Heart rate83 /minDionna Corrigan COUNSELOR/ART THERAPIST Work Phone: 1(336) [phone]jltxr13-73-6638 11:40-0400Respiratory rate18 /min Dionna Corrigan CNP Work Phone: 1(840) [phone]-056095GjrsLkqgnu23-65-9846 11:40-9015QaQ1% (BldA) [Mass fraction]96 %Dionna Corrigan CNP Work Phone: 1(705) [phone]qthVmobrx15-36-1314 11:40-0400Systolic blood pressure 112 mm[Hg]Dionna Corrigan CNP Work Phone: 1(305) [phone]80757GssqMkefkb18-06-5486 10:00-0400Body ylpdut400.8 cm Clair Dahl Other [employer] Other 07-12-2023 10:00-0400Body mass index (BMI) [Ratio]33 kg/g1RlbtidClair Dahl Other [employer] Other 07-12-2023 10:00-0400Body rtejrh262.33 kgClair Dahl Other [employer] Other 07-12-2023 10:00-0400Diastolic blood kqykywji78 mm[Hg] Clair Dahl Other [employer] Other 07-12-2023 10:00-0400Systolic blood cqjvehjm125 mm[Hg] Clair Dahl Other [employer] Other 07-07-2023 10:06-0400Body dnmnjueaath89.01 [degF]Dionna Corrigan COUNSELOR/ART THERAPIST Work Phone: [phone] 10:06-0400Diastolic blood vhyjhcfi56 mm[Hg]Dionna Green COUNSELOR/ART THERAPIST Work Phone: [id number] 10:06-0400Heart rate75 /minDionna Green COUNSELOR/ART THERAPIST Work Phone: [phone] 10:06-7237RoB3% (BldA) [Mass fraction]97 %Dionna Green COUNSELOR/ART THERAPIST Work Phone: ZssxIdtwgd31-386339FkveOazmyk45-21-0985 10:06-0400Systolic blood pressure 114 mm[Hg]Dionna Green COUNSELOR/ART THERAPIST Work Phone: OlxhTtclhb98-597871OtdmKlnpmu30-52-6862 07:30-0400Body xoekugfglfu73.1 [degF]Edgar Dhaliwal MD Work Phone: FqwzSkzfoc76-686115EtoaCvcxbm08-76-0999 07:30-0400Diastolic blood kbxfhivb21 mm[Hg]Edgar Dhaliwal MD Work Phone: DtxaEbvrsx51-671522QegjYgzwnu53-04-8716 07:30-0400Heart rate75 /minEdgar Dhaliwal MD Work Phone: QbegLsgskr47-707590LhnoMdhiit29-74-2851 07:30-0400Respiratory rate18 /min Edgar Dhaliwal MD Work Phone: RucbZgkgot32-398064PwxtBqtbzm79-26-2603 07:30-1520ZlJ9% (BldA) [Mass fraction]93 %Edgar Dhaliwal MD Work Phone: EideUcsmtj75-023616XsjiGnperc60-93-0276 07:30-0400Systolic blood pressure 121 mm[Hg]Edgar Dhaliwal MD Work Phone: FpddFedqzl65-319071LtzrExwjsj58-61-8494 09:42-0400Body apflqq059.8 cm Edgar Dhaliwal MD Work Phone: KqdxXjgtlm20-025788BjejSxupcx34-09-3134 09:42-0400Body mass index (BMI) [Ratio]33.72 kg/w2UlarevEdgar Dhaliwal MD Work Phone: FbkcGffvfp05-233691CeplGvqksh13-58-4968 09:42-0400Body mwhsgy081.6 kg Edgar Dhaliwal MD Work Phone: HjvkKruxdz03-365203RfmzNocjoj00-87-9056 11:59-0400Body kybkplpsbxq31.71 [degF]Dionna Green COUNSELOR/ART THERAPIST Work Phone: QfmpMafrea03-450339GfhuWoocsf32-17-5573 11:59-0400Diastolic blood mm[Hg]Dionna Green COUNSELOR/ART THERAPIST Work Phone: ZmhlEwoaoo15-728866DynjZoyghl08-36-7917 11:59-0400Heart rate74 /minLisa Green COUNSELOR/ART THERAPIST Work Phone: FgpfVctajd33-048411PoeaOzxwxy20-53-0951 11:59-1558JnU0% (BldA) [Mass fraction]95 %Dionna Green COUNSELOR/ART THERAPIST Work Phone: LckvWsxfpq95-041884JuhcPqmwzi46-23-1124 11:59-0400Systolic blood pressure 116 mm[Hg]Dionna Green COUNSELOR/ART THERAPIST Work Phone: WvjvQdxxgn24-134182ErgqOzeuax57-43-8485 11:26-0400Body tqkfejtwokn84.5 [degF]Edgar Dhaliwal MD Work Phone: BphaSnbaqq80-723589CzcjOyurfx48-17-3912 11:26-0400Diastolic blood eypthnmt60 mm[Hg]Edgar Dhaliwal MD Work Phone: HvwrEooftc74-409279RhfdNgkoln77-28-5557 11:26-0400Heart rate73 /minEdgar Dhaliwal MD Work Phone: AerrBliozk98-193182KhitOpkhcy28-34-9605 11:26-0400Respiratory rate16 /min Edgar Dhailwal MD Work Phone: WotxXycltu95-660134QuspTufqzo78-37-5613 11:26-2861XdD6% (BldA) [Mass fraction]96 %Edgar Dhaliwal MD Work Phone: OuprZctqcs27-420673UaxtRnvbaa37-94-0311 11:26-0400Systolic blood pressure 132 mm[Hg]Edgar Dhaliwal MD Work Phone: 1(688) [phone]BrswQauilb07-15-1639 08:17-0400Body djzuku559.8 cm Edgar Dhaliwal MD Work Phone: 1(786) [phone]hkzDlpngm39-73-5213 08:17-0400Body mass index (BMI) [Ratio]33.21 kg/f7LwyvbaEdgar Dhaliwal MD Work Phone: 1(239) [phone]-507202SwklBxfkem99-99-6518 08:17-0400Body kgEdgar Dhaliwal MD Work Phone: 1(151) [phone]NtkyYqcxxv20-70-4068 11:15-0400Body hlbwaq440.8 cm Clair Dahl Other [employer] Other 05-18-2023 11:15-0400Body mass index (BMI) [Ratio]34 kg/m9XxskozClair Dahl Other [employer] Other 05-18-2023 11:15-0400Body gipwtq021.5 kgClair Dahl Other [employer] Other 05-18-2023 11:15-0400Diastolic blood tfxsrner90 mm[Hg] Clair Dahl Other [employer] Other 05-18-2023 11:15-0400Systolic blood plsitwtu182 mm[Hg] Clair Dahl Other [employer] Other 04-26-2023 12:56-0400Body .8 cmEdgar Dhaliwal MD Work Phone: 1(181) [phone]57SgdsTlriqb16-40-0560 12:56-0400Body mass index (BMI) [Ratio]31.85 kg/w4VknkwqEdgar Dhaliwal MD Work Phone: 1(885) [phone]-959784LxhuCbddic22-35-0494 12:56-0400Body okctly051.7 kg Edgar Dhaliwal MD Work Phone: AdkjFzbmea34-169277WixmNgfiza06-58-4567 12:56-0400Diastolic blood mm[Hg]Edgar Dhaliwal MD Work Phone: RsxaDgdacv68-223546DvooYrsgui07-86-0311 12:56-0400Heart rate71 /minEdgar Dhaliwal MD Work Phone: LfogKkhekh58-847851UbiqGagppr98-58-9894 12:56-0400Respiratory rate16 /min Edgar Dhaliwal MD Work Phone: XxheYtjhqh99-857889QgpgZnstqq20-68-1053 12:56-4600KoG0% (BldA) [Mass fraction]95 %Edgar Dhaliwal MD Work Phone: CnhpVxicgr41-724776CstpWsrkzw37-04-5582 12:56-0400Systolic blood pressure 130 mm[Hg]Edgar Dhaliwal MD Work Phone: WeyyCjxguo14-417722LjchRqigel52-97-8629 14:15-0400Body vgifds822.8 cm Vijay Acuna MD Work Phone: KjveJqsfzc21-859448WvbhVmukkc90-75-6522 14:15-0400Body mass index (BMI) [Ratio]32.57 kg/x2PwuthrybboVijay Acuna MD Work Phone: HnjtFysxil92-890708KagmZhzkxy41-51-3243 14:15-0400Body .97 kg Vijay Acuna MD Work Phone: CvaeRxspmx36-881255IijfExnmhe59-29-6510 14:15-0400Diastolic blood uubedygx71 mm[Hg]Vijay Acuna MD Work Phone: IvwtPalfcf58-026319UmmbCgwiex93-48-4082 14:15-0400Heart rate88 /min Vijay Acuna MD Work Phone: CfvsVunofb36-376539GvwtCjwirs00-20-9864 14:15-2387ObJ0% (BldA) [Mass fraction]95 %Vijay Acuna MD Work Phone: SyicVzpptv09-108310GeuxQxuhau67-64-0378 14:15-0400Systolic blood pressure 119 mm[Hg]Vijay Acuna MD Work Phone: 1(513) [phone]OpusGwxizf31-98-0993 13:37-0400Body vdupvpxoupt60.71 [degF]Edgar Dhaliwal MD Work Phone: 1(245) [phone]-033906AdytBfavzd57-25-7157 13:37-0400Diastolic blood euedrxlv27 mm[Hg]Edgar Dhaliwal MD Work Phone: CfjfOcspch79-176453TtkwJierhb89-32-0448 13:37-0400Heart rate75 /minBohuma Dhaliwal MD Work Phone: 1(711) [phone]840LpbvUrbniw82-92-4054 13:37-4254VjI1% (BldA) [Mass fraction]99 %Edgar Dhaliwal MD Work Phone: EtmiZgeibr45-266547GvroJencmh47-72-6091 13:37-0400Systolic blood pressure 112 mm[Hg]Edgar Dhaliwal MD Work Phone: UqrzDtxskq37-347060PwkzIfpahq20-55-0967 13:28-0500Diastolic blood jmxpighu32 mm[Hg]Erika Louis PA-C Work Phone: 1(228) [phone]-263537QzrfBzfrib22-81-5938 13:28-0500Heart rate80 /minEmily Heriberto PA-C Work Phone: 1(958) [phone]dgdWvzjri20-64-7282 13:28-0598AuP9% (BldA) [Mass fraction]96 %Erika Louis PA-C Work Phone: MrpqQyusvr30-676438FixzCeyikq81-59-7863 13:28-0500Systolic blood pressure 116 mm[Hg]Erika Louis PA-C Work Phone: 1(344) [phone]310LkebDnrlev71-37-5836 14:30-0500Body epbhyc264.8 cm Clair Dahl Other [employer] Other 01-03-2023 14:30-0500Body mass index (BMI) [Ratio] 32.42 kg/w8Lvuylc Nabila Other [employer] Other 01-03-2023 14:30-0500Body .51 kgClair Nabila Other [employer] Other 01-03-2023 14:30-0500Diastolic blood hesmmpwh26 mm[Hg] Clair Dahl Other [employer] Other 01-03-2023 14:30-4022BeA0% (BldA) [Mass fraction]98 % Clair Nabila Other [employer] Other 01-03-2023 14:30-0500Systolic blood nkejyrhi011 mm[Hg] Clair Dahl Other [employer] Other 12-29-2022 14:02-0500Diastolic blood hojlkxix63 mm[Hg] Erika Louis PA-C Work Phone: 1(458) [phone]alnRyivwe19-52-8816 14:02-0500Heart rate82 /minEmily Heriberto PA-C Work Phone: 1(181) [phone]-707761HtibTythwk65-46-9514 14:02-0500Respiratory rate16 /min Erika Louis PA-C Work Phone: 1(396) [phone]-709082DricZbhijh17-26-7230 14:02-3564YxZ1% (BldA) [Mass fraction]96 %Erika Louis PA-C Work Phone: 1(515) [phone]-341935HritSkydym53-46-6055 14:02-0500Systolic blood pressure 115 mm[Hg]Erika Louis PA-C Work Phone: 1(186) [phone]HhitMpjsrz48-92-7860 10:49-0500Body .01 [degF]Erika Louis PA-C Work Phone: 1(961) [phone]XmpcOxcmdz99-79-3787 10:49-0500Diastolic blood oqpbkjxa64 mm[Hg]Erika Louis PA-C Work Phone: 1(894) [phone]-393183GqowTucumt46-06-4603 10:49-0500Heart rate84 /minEmily Heriberto PA-C Work Phone: 1(605) [phone]LgabEnlbcw82-90-3696 10:49-8073JzX9% (BldA) [Mass fraction]97 %Erika Louis PA-C Work Phone: YiumZmqkha64-194327VupfCsjhzg78-58-2240 10:49-0500Systolic blood pressure 116 mm[Hg]Erika Louis PA-C Work Phone: AtixCvpprb95-691494KlgrHgliyb62-59-9649 12:15-0500Body izqtovuhtnv76.2 [degF]Edgar Dhaliwal MD Work Phone: TvvqWlgidj91-337947WxjqGsefwl72-94-9524 11:49-0500Diastolic blood lcrelcix28 mm[Hg]Edgar Dhaliwal MD Work Phone: MnadJolsvd82-901185JjhsIdynwm22-41-5150 11:49-0500Respiratory rate16 /min Edgar Dhaliwal MD Work Phone: 1(251) [phone]okuXoxpbd87-49-4334 11:49-1456FvQ2% (BldA) [Mass fraction]95 %Edgar Dhaliwal MD Work Phone: SxluEibxtw89-736737JcljYpvrka45-37-0826 11:49-0500Systolic blood pressure 125 mm[Hg]Edgar Dhaliwal MD Work Phone: PvotRkdomz56-390882HsawMhgnnc11-22-2046 11:10-0500Heart rate80 /minEdgar Dhaliwal MD Work Phone: JjvsDywscs52-870108TeqoVzkapr06-48-0835 06:15-0500Body gxkxer789.8 cm Edgar Dhaliwal MD Work Phone: FrjjIbfvtb03-897462YhjcDuptmx71-71-3883 06:15-0500Body mass index (BMI) [Ratio]31.82 kg/o4WisqzbEdgar Dhaliwal MD Work Phone: 1(697) [phone]-212559ZuquQgnzss40-39-2433 06:15-0500Body ajpsgn017.6 kg Edgar Dhaliwal MD Work Phone: TauaQvdtwf33-633946FevcDxuint80-66-5872 10:03-0400Body mass index (BMI) [Ratio]31.28 kg/k3Pwhotap Jannet [employer] WORK[employer] Work Phone: HrjuLdkncb20-335114EnrxCfoiom11-20-1847 10:03-0400Body jobqgf16.88 kg Ami Jannet [employer] Work Phone: ZqutIjiugu20-082778TxdnExobfw54-64-7700 10:03-0400Diastolic blood mmjghise95 mm[Hg]Ami Jannet [employer] WORK[employer] Work Phone: TznfRneywy01-518265BovfMflwow24-89-9982 10:03-0400Heart rate70 /min Ami Jannet [employer] WORK[employer] Work Phone: KvooPdqxbl20-701238OcdmLfjitk87-43-4727 10:03-0400Systolic blood pressure 129 mm[Hg]Ami Jannet [employer] WORK[employer] Work Phone: UtclUsbwlm88-673541DjmcCvjgbu61-26-1455 12:50-0400Diastolic blood twszyghw89 mm[Hg]Edgar Dhaliwal MD Work Phone: GqctLlrkja84-810307NaifUfpsbd03-37-9161 12:50-0400Heart rate71 /minEdgar Dhaliwal MD Work Phone: CkphCidcdi41-318569KarmJsqnut78-80-2286 12:50-5287PiM6% (BldA) [Mass fraction]96 %Edgar Dhaliwal MD Work Phone: LhhwOgdmmu55-838053LmqtTpuhnx44-71-5261 12:50-0400Systolic blood pressure 124 mm[Hg]Edgar Dhaliwal MD Work Phone: SgniQblysa39-330414LrryYrifvz41-10-5740 14:02-0400Body nozqtg099.8 cm Vijay Acuna MD Work Phone: ZxtxErdviy88-358856SkqeAwxkxd28-03-1512 14:02-0400Body mass index (BMI) [Ratio]30.56 kg/q9CcrivuycqiVijay Acuna MD Work Phone: BqkeElptxo18-656392PkpmLsnayb80-55-1939 14:02-0400Body osifqi14.62 kg Vijay Acuna MD Work Phone: ShzsDvlzsc27-956369UamiOaguef46-74-4305 14:02-0400Diastolic blood liyxljpi92 mm[Hg]Vijay Acuna MD Work Phone: ZowmAhqidq94-749507BinpCniwph11-22-6618 14:02-0400Heart rate75 /min Vijay Acuna MD Work Phone: AsttDbyfhy57-940211ExydGkikkt78-62-1613 14:02-5516XdX3% (BldA) [Mass fraction]95 %Vijay Acuna MD Work Phone: RcjdTuvzab17-216540OcbgSpscqo51-15-0227 14:02-0400Systolic blood pressure 131 mm[Hg]Vijay Acuna MD Work Phone: HcxeZszuoj02-655476ZphdZbioco80-30-1271 08:58-0400Body rlzmlu679.8 cm Vijay Acuna MD Work Phone: HlzkQdnuhz09-601334XksxAvdlpm37-89-1943 08:58-0400Body mass index (BMI) [Ratio]31.14 kg/r2HcvkuhsyyvVijay Acuna MD Work Phone: YbgnWpkaop03-655733MfpzOgeudv75-17-8055 08:58-0400Body xvhukl56.43 kg Vijay Acuna MD Work Phone: CscsWpyypv95-005128AldnNxawsc06-90-3697 08:58-0400Diastolic blood kglivdky38 mm[Hg]Vijay Acuna MD Work Phone: BdmaOogewk70-396746VpvzIillgf11-10-1146 08:58-0400Heart rate82 /min Vijay Acuna MD Work Phone: HhshOjtgzy55-070861JwcaBxstuv93-85-3218 08:58-9485MaJ4% (BldA) [Mass fraction]95 %Vijay Acuna MD Work Phone: ZjotJjsiqz60-604321SrskFacfla28-98-3757 08:58-0400Systolic blood pressure 116 mm[Hg]Vijay Acuna MD Work Phone: 1(410) [phone]7-706926JvjjTstgns70-21-6585 10:26-0400Body eaxpyr521.8 cm Ami Jannet [employer] Work Phone: 1(348) [phone]7-594089ChirCprlob57-32-7594 10:26-0400Body mass index (BMI) [Ratio]31.28 kg/u3Jahfrtk Jannet [employer] Work Phone: 1(113) 670-8388021-5048SezoGrfpkb10-342217ZyydLfoaoh70-18-4791 10:26-0400Body ikonmn56.88 kg Ami Jannet [employer] Work Phone: 1(250) [phone]-623460IdczXyrpma31-95-0787 10:26-0400Diastolic blood mm[Hg]Ami Jannet [employer] WORK[employer] Work Phone: 1(661) [phone]-914508KgljIffcmi60-77-3399 10:26-0400Heart rate70 /min Ami Jannet [employer] Work Phone: 1(120) [phone]ovfZuztek14-47-4953 10:26-0400Systolic blood pressure 118 mm[Hg]Ami Jannet [employer] Work Phone: 1(798) [phone]-021084YebdMcbisx23-80-6199 11:14-0400Body efwzpq994.8 cm Ami Jannet [employer] Work Phone: 1(230) 252-8501913-6792LdpvYpqgln97-247524OwxjXlslbm69-94-1199 11:14-0400Body mass index (BMI) [Ratio]31.42 kg/c3Zbxqmra Jannet [employer] Work Phone: 1(810) [phone]rgtYupeia82-12-8076 11:14-0400Body irjevz16.34 kg Ami Jannet [employer] Work Phone: 1(571) 840-6167779-9085WvakTkqxci13-497613XqecHhaeyo17-16-2555 11:14-0400Diastolic blood ptluhren92 mm[Hg]Ami Jannet [employer] WORK[employer] Work Phone: 1(624) [phone]fiuUjzltp42-78-1249 11:14-0400Heart rate65 /min Ami Jannet [employer] WORK[employer] Work Phone: GeedLcsvfg06-260571VfudGqejjx03-61-9882 11:14-0400Systolic blood pressure 124 mm[Hg]Ami Jannet [employer] WORK[employer] Work Phone: BezxBjjcxy25-821945GnqcReeijj40-98-9652 14:23-0400Diastolic blood mm[Hg]Vijay Acuna MD Work Phone: HsylOoowue02-599245QnwaBlaxzz70-31-3453 14:23-0400Systolic blood pressure 120 mm[Hg]Vijay Acuna MD Work Phone: GipfNtaywz35-619260NadePohekm86-52-9901 14:15-0400Body .8 cm Vijay Acuna MD Work Phone: SuhqWcemrt29-841081RmfpUibebr64-02-0345 14:15-0400Body mass index (BMI) [Ratio]31.14 kg/z0LzcfedoicaVijay Acuna MD Work Phone: LcxxNckjgb99-898829EirjMyrngp13-22-2426 14:15-0400Body .43 kg Vijay Acuna MD Work Phone: AtjpEaasir95-831051TrlwMqjkxo94-97-6470 14:15-0400Heart rate79 /min Vijay Acuna MD Work Phone: DogrJemuie54-802229QpkzMouwjh83-83-7698 14:15-0188SiC0% (BldA) [Mass fraction]96 %Vijay Acuna MD Work Phone: LefuZadivv40-025656XstfBeccos27-64-2844 07:52-0400Body .8 cm Ami Jannet [employer] WORK[employer] Work Phone: BgysEkzpoc55-827778FbjoQlexsx55-01-6268 07:52-0400Body mass index (BMI) [Ratio]32.13 kg/f7Vqttxmn Jannet [employer] WORK[employer] Work Phone: RbgsBfjtae06-427491PznnLnqljk41-57-8642 07:52-0400Body iaprof216.56 kg Ami Jannet [employer] Work Phone: AvefCkylmy87-934633GixgVcqiru00-25-4913 07:52-0400Diastolic blood vlthyddy76 mm[Hg]Ami Jannet [employer] WORK[employer] Work Phone: LlsbYzadtc70-832155MuizIdcczg72-77-1149 07:52-0400Heart rate83 /min Ami Jannet [employer] Work Phone: UijpZfuujc14-294522BtnrGmnmwj83-10-2423 07:52-4217MlZ8% (BldA) [Mass fraction]98 %Ami Jannet [employer] WORK[employer] Work Phone: BsssGprxbg11-049978LoflYmgwjt53-82-2386 07:52-0400Systolic blood pressure 138 mm[Hg]Ami Jannet [employer] WORK[employer] Work Phone: SdevVqmutz54-464446EpbgQbemhi53-56-3574 10:18-0400Body kescgo850.8 cm Vijay Acuna MD Work Phone: IllhIfvxha00-141480HktnQoujvy06-28-7720 10:18-0400Body mass index (BMI) [Ratio]31.57 kg/q8UbconsvwbvVijay Acuna MD Work Phone: XoblDwpaou99-207419GktxKwflzd60-43-2770 10:18-0400Body jeepvu43.79 kg Vijay Acuna MD Work Phone: JrsaWnhfol02-191778YicuYqxzsp31-44-5631 10:18-0400Diastolic blood mm[Hg]Vijay Acuna MD Work Phone: GbyySatybh46-105961DdghTjtfea77-62-3391 10:18-0400Heart rate90 /min Vijay Acuna MD Work Phone: KvbwOgjmnv00-709250SkjbDitgdl52-32-9387 10:18-7011DoI8% (BldA) [Mass fraction]96 %Vijay Acuna MD Work Phone: LxrhBurevh84-086931AjucAvfjhh82-75-2280 10:18-0400Systolic blood pressure 133 mm[Hg]Vijay Acuna MD Work Phone: EshbVswras71-631545MkbwYjvaun40-91-8197 14:30-0400Diastolic blood znuvoxlb55 mm[Hg]Edgar Dhaliwal MD Work Phone: 1(365) [phone]r24-972636SkxeJqtfby03-11-1450 14:30-0400Heart rate76 /minEdgar Dhaliwal MD Work Phone: 1(786) [phone]2-758208NlktGfvjpw18-21-4891 14:30-0400Respiratory rate16 /min Edgar Dhaliwal MD Work Phone: 1(520) [phone]1-517174RmbgQziwxd37-06-2693 14:30-0400Systolic blood pressure 150 mm[Hg]Edgar Dhaliwal MD Work Phone: 1(545) [phone]z96-352031WdtoHagszc56-18-9380 16:00-0500Body .8 cm Kareem Lagunas Other [employer] Other 959328-82-4214 16:00-0500Body mass index (BMI) [Ratio] 31.85 kg/b3NhizjlKareem Lagunas Other [employer] Other 02-16-2022 16:00-0500Body qqsyzf398.7 kgNatalimonica Lagunas Other [employer] Other 02-16-2022 16:00-0500Diastolic blood gqoxvzru01 mm[Hg] Kareem Lagunas Other [employer] Other 02-16-2022 16:00-0500Systolic blood ddrcuulk899 mm[Hg] Kareem Lagunas Other [employer] Other 01-03-2022 10:50-0500Diastolic blood pkirxgqe88 mm[Hg] Erika Louis PA-C Work Phone: oh220-8313TfuqKhqyck59-576432XdmbPccmwn87-34-9484 10:50-0500Heart rate97 /minEmijessica Louis PA-C Work Phone: oh525-7359KpxtXtytjw82-401587BoyqIzosrn61-18-7840 10:50-2228WyM4% (BldA) [Mass fraction]97 %Erika Louis PA-C Work Phone: 1(755) [phone]yzjUrtgdp36-05-3313 10:50-0500Systolic blood pressure 139 mm[Hg]Erika Louis PA-C Work Phone: [facility] Encounters Encounter DateEncounter [facility] ProviderFacilityStart: 10-29-2024 End: 92-73-1193dbykaibxymZDFTFSMQQP [facility]Start: 10[facility]29[facility]2024 End: 19-37-6214lrudwqymldKJMDBQ E [facility]: 10-06-2024 End: 38-60-3011Jynrpjdkl to same day surgery richwoodMeir Huffman RN [facility] Vascular PhysiciansComment on above:Chest pressure (Primary Dx); DE OLIVEIRA (dyspnea on exertion)Start: 10-06-2024 End: 04-26-4699Infzmh outpatient visit 25 minutesVijay Acuna MD Work Phone: [facility] & Vascular PhysiciansComment on above:Vasovagal near syncope (Primary Dx); Chest pressure; Chronic systolic HF (heart failure) (HCC); Palpitations; DE OLIVEIRA (dyspnea on exertion)Start: 10-06-2024 End: 28-27-8539xfmgdnmodwNCQWIWKFVU [facility]. [facility] AmbulatoryStart: 77-97-4304fppklrecyvHORPUI SMITHOhio Health AmbulatoryStart: 09-26-2024 [facility]ulatoryStart: 09-16-2024 End: 57-65-2567XbkhprHzsnjt Smith MA Work Phone: [facility] & Vascular PhysiciansComment on above:Medication RefillStart: 09-15-2024 End: 16-31-5164FmzcekBcdpnt Smith MA Work Phone: [facility] Vascular PhysiciansComment on above:Medication RefillStart: 07-22-2024 End: 67-06-8909vadsfjzoyuLnfulpp R WATERSFacility:NORMAN [place]uskyStart: 07-22-2024 End: 50-39-1449Ssvjdsy encounter procedureJustin Tunde NEAL [facility] Francy Start: 07-14-2024 End: 25-07-6543msgvngujxwQeibje Braun MD Work Phone: [facility] Work Phone: Start: 07-14-2024 End: 04-26-1102Ysompfi encounter procedureClair Dahl MD Work Phone: [facility] Work Phone: Start: 06-12-2024 End: 17-23-5921cfpctdstnkWE-C BILL Wisdom PERRYFacility:FTMCStart: 06-12-2024 End: 62-07-1680Kcq Drop offBILL HARTLEY [facility] Start: 06-12-2024 End: 78-63-5088gvelbwqnkbNC-C BILL Wisdom PERRYFacility:EU BellevueStart: 52-44-3414xybaoambdvHQ-C BILL PERRYFacility:EU [place]kyStart: 12-44-5750Uxm- patient / Non-visitClair Dahl MD Work Phone: [facility] Work Phone: Start: 40-42-1843Arc-patient / Non-visitClair Dahl MD Work Phone: [facility] Work Phone: Start: 05-23-2024 End: 60-45-5653qdnsrgveodLrrxzy Braun MD Work Phone: [facility] Work Phone: Start: 05-23-2024 End: 11-57-7448Kwxbznl encounter Rubin Dahl MD Work Phone: [facility] Work Phone: Start: 05-08-2024 End: 38-28-9423Beovrzb encounter procedureUn[facility] Work Phone: Start: 05-08-2024 End: 48-82-3945jggfljkkvsWooesk E BraunFacility:[facility] Hospitaltart: 05-08-2024 End: 39-36-7477Hovrrfhm Dharmesh Dahl MD Work Phone: [facility] [place] Work Phone: Start: 04-16-2024 End: 67-48-7643GqetmpGjcvam Smith MA Work Phone: [facility] Heart & Vascular PhysiciansComment on above:Medication RefillStart: 03-14-2024 End: 04-94-5923Yqnoffebxqoxw procedureMattkenroy Carrion PA-C Work Phone: [facility] Neurological PhysiciansStart: 03-12-2024 End: 36-63-3635Rwojxtdpdnbbg procedureMattrcw Alexi Carrion PA-C Work Phone: [facility] Neurological PhysiciansStart: 03-07-2024 End: 89-35-4853prtytvcwccJJVAVDQ LEE [facility] AmbulatoryStart: 12-20-2023 End: 24-24-9172Ymrfaa flowsheetGiovani Maria DPM Work Phone: noMS CI PODIATRYStart: 12-20-2023 End: 94-00-7803Wbhhzm flowsheetNicholas Elliott Brown DPM Work Phone: noms CI PODIATRYStart: 12-20-2023 End: 92-03-6448Omgkml outpatient visit 15 minutesNicdanielle Maria DPM Work Phone: noms CI PODIATRYComment on above:Plantar fasciitis (Primary Dx); Contracture of left ankleStart: 12-20-2023 End: 10-99-7154ogggmfgnifXBVUNFCE A BROWNNot AvailableStart: 11-22-2023 End: 21-29-7436Fdbmon flowsheetNicholas A Brown DPM Work Phone: [facility] CI PODIATRYStart: 11-22-2023 End: 46-66-4970Ofbavb flowsheetNicholas A Brown DPM Work Phone: [facility] CI PODIATRYStart: 11-22-2023 End: 07-42-0886Inkdqn outpatient visit 15 minutesNicholas A Brown DPM Work Phone: [facility] CI PODIATRYComment on above:Plantar fasciitis (Primary Dx); Contracture of left ankleStart: 11-22-2023 End: 16-06-2956bkoxjrwastCWMVGXZE A BROWNNot AvailableStart: 11-08-2023 End: 27-06-9325Msvunu flowsheetNicholas A Brown DPM Work Phone: [facility] CI PODIATRYStart: 11-08-2023 End: 58-62-9123Ryvaqq flowsheetNicholas A Brown DPM Work Phone: [facility] CI PODIATRYStart: 11-08-2023 End: 53-64-9987Okovhahq SupportNicholas A Brown DPM Work Phone: noMS CI PODIATRYComment on above:Plantar fasciitis (Primary Dx); Contracture of left ankleStart: 11-08-2023 End: 37-25-3298refvukchdiVQLMITAI A BROWNNot AvailableStart: 10-25-2023 End: 55-33-6606Bgtnpf flowsheetNicholas A Brown DPM Work Phone: [facility] CI PODIATRYStart: 10-25-2023 End: 19-73-4987Lkdlrn flowsheetNicholas A Brown DPM Work Phone: [facility] CI PODIATRYStart: 10-25-2023 End: 83-14-9296Keiybjyy SupportNicholas A Brown DPM Work Phone: NODN PODIATRYComment on above:Plantar fasciitis (Primary Dx); Contracture of left ankleStart: 10-25-2023 End: 02-74-1296spnekfsdezSAJBLUZG A BROWNNot AvailableStart: 10-17-2023 End: 17-20-9889Tojys bharatiFelipe Finneyathers [facility] Heart & Vascular PhysiciansComment on above:Medication RefillStart: 10-11-2023 End: 63-25-2554oihwzdnibgYFVKWTFE A BROWNNot AvailableStart: 08-28-2023 End: 44-41-3797bgarwanypeYM Marcia E Braun Work Phone: [facility] Work Phone: Start: 08-28-2023 End: 93-22-2496Nsguaqo encounter procedureMD Clair Dahl Work Phone: [facility] Work Phone: Start: 07-03-2023 End: 28-45-6357ztgexkagplQE Marcia E Braun Work Phone: [facility] Work Phone: Start: 07-03-2023 End: 40-45-6881Vbojnqw encounter procedureMD Trammellia Nabila Work Phone: [facility] Work Phone: Start: 06-22-2023 End: 90-80-7510ehoqzxpekbUyortnjfiAdams County Hospital Work Phone: Start: 06-22-2023 End: 23-81-8291Ejcuohr encounter procedureUn[facility] Work Phone: Start: 60-98-5572RjwgsgTflel Akers [facility] Heart & Vascular PhysiciansComment on above:Medication RefillStart: 06-19-2023 End: 64-57-1034Chcjrg outpatient visit 25 minutesVijay Acuna MD Work Phone: [facility] Heart & Vascular PhysiciansComment on above:Chronic systolic HF (heart failure) (HCC) (Primary Dx); DE OLIVEIRA (dyspnea on exertion); Chest pressure; Hyperlipidemia, unspecified hyperlipidemia typeStart: 53-92-8614YfshwpGbhkdtkhf Marisa Meredithler [facility] Heart & Vascular PhysiciansComment on above:Medication RefillStart: 93-74-1097NztalhZyfqt Akers MAOParkview Health [facility] Heart & Vascular PhysiciansComment on above:Medication RefillStart: 02-22-2023 End: 81-16-1837reoucbnwrgWswzxg Braun Other [employer] Other Start: 77-24-2009Squzid outpatient visit 15 minutes Clair DahlBarnesville Hospital ClinicStart: 02-06-2023 End: 71-03-9917Egiqirk encounter procedureMaausten Carrion PA-C Work Phone: [facility] Neurological PhysiciansComment on above: Carpal tunnel syndrome on left (Primary Dx); Ellison sign present; Numbness and tingling in left armStart: 65-69-3117Tpmljskwhtmth procedureMattkenroy Carrion PA-C Work Phone: [facility] PhysiciansStart: 02-01-2023 End: 41-95-2950rppiatynweAwwqqo Braun Other [employer] Other Start: 30-00-4090Fawamc outpatient visit 15 minutes Clair [facility]Barn[facility]ville [facility] ClinicStart: 32-65-1215Rknyfj OnlyMattkenroy Carrion PA-C Work Phone: [facility] Neurological PhysiciansComment on above: Ellison sign present (Primary Dx)Start: 45-04-7294Yhzvoklunxqvb procedureMaausten Carrion PA-C Work Phone: [facility] PhysiciansStart: 01-09-2023 End: 16-03-0433gxqnushymbQyznnk Braun Other [employer] Other Start: 34-69-4537Fyxnzh outpatient visit 15 minutes Clair [facility] ClinicStart: 02-00-1598Fhdstj outpatient visit 15 minutesClair StevensMaria [facility] ClinicStart: 12-13-2022 End: 46-20-0316Ufwenk OnlyCaroline Carrion PA-C Work Phone: [facility] Neurological PhysiciansComment on above: Ellison sign present (Primary Dx); Numbness and tingling in left armStart: 12-12-2022 End: 94-94-8479Jwjcje follow up visit related to original pxMatthew Alexi Fair PA-C Work Phone: [facility] Neurological PhysiciansComment on above: Status post insertion of spinal cord stimulator (Primary Dx)Start: 11-17-2022 Documentation procedureAlixadianne Huff[facility] V[facility] PhysiciansStart: 67-71-2160Khvnmi OnlyMattrcw Alexi Fair PA-C Work Phone: [facility]rological PhysiciansStart: 11-08-2022 End: 35-17-5144Hutwju follow up visit related to original pxMatthew Alexi Fair PA-C Work Phone: [facility].sl[facility] Neurological PhysiciansComment on above: Status post insertion of spinal cord stimulator (Primary Dx)Start: 11-03-2022 End: 68-90-6711Qnwyoz follow up visit related to original pxMatthew Alexi Fair PA-C Work Phone: [facility] Neurological PhysiciansComment on above: Status post insertion of spinal cord stimulator (Primary Dx); Failed back syndrome, lumbosacral; NeuropathyStart: 72-97-8730Ryxlwy outpatient visit 15 minutesClair [facility] ClinicStart: 11-02-2022 End: 00-88-2257Jeqrxf OnlyCaroline Truong Fair PA-C Work Phone: [facility] Neurological PhysiciansStart: 11-01-2022 Jian Acuna MD Work Phone: [facility] Failure ClinicComment on above: Medication RefillStart: 11-01-2022 End: 73-65-3298Qdqtjj follow up visit related to original Martyparkerkenroy Alexi Carrion PA-C Work Phone: [facility] Neurological PhysiciansComment on above: Status post insertion of spinal cord stimulator (Primary Dx)Start: 10-04-2022 End: 52-90-5488Jiubgz follow up visit related to original Stefania Corrigan COUNSELOR/ART THERAPIST Work Phone: [facility] Neurological PhysiciansComment on above: Status post insertion of spinal cord stimulator (Primary Dx); NeuropathyStart: 82-29-5368YajzafAkassrk LBan Jannet KNOCKUP WORKER Work Phone: [facility] Heart Failure ClinicComment on above: Medication RefillStart: 96-17-3232WonmfqQnzhflp LBan Jannet KNOCKUP WORKER Work Phone: [facility] Heart Failure ClinicComment on above: Medication RefillStart: 09-21-2022 End: 62-87-0401ryperklbjcQiijya Braun Other [employer] Other Start: 98-64-8651Tmttelyvo Nadeen Mejia Referral CoordinatorStart: 09-13-2022 End: 77-86-0785sawmafusacWgjawo Braun Other [employer] Other Start: 01-50-3021Klwghk outpatient visit 15 minutes Clair [facility] ClinicStart: 09-08-2022 End: 71-28-6772Kpfpqj follow up visit related to original Stefania Corrigan COUNSELOR/ART THERAPIST Work Phone: [facility] Neurological PhysiciansComment on above: Status post insertion of spinal cord stimulator (Primary Dx); Failed back syndrome, lumbosacral; Status post lumbar discectomy; NeuropathyStart: 08-24-2022 End: 61-30-6246Sncwhtubzw hospital visit by Nadai Dhaliwal MD Work Phone: [phone] [place] [address] IntermediateStart: 08-04-2022 End: 06-42-1864Dokwyo follow up visit related to original Stefania Corrigan CNP Work Phone: [facility] Neurological PhysiciansComment on above: Failed back syndrome, lumbosacral (Primary Dx); Spinal cord stimulator statusStart: 08-02-2022 End: 04-69-1901Braqelim [facility] Centeryuni [facility] Neurological PhysiciansComment on above:Failed back syndrome, lumbosacral (Primary Dx)Start: 08-01-2022 End: 74-96-7241Dadhvxxvev hospital visit by Nadia Dhaliwal MD Work Phone: [phone] [place] [address] PeriopStart: 07-20-2022 End: 50-75-9581uncqsersfySwyheg Braun Other [employer] Other Start: 97-92-6213Tstfbp outpatient visit 15 minutes Clair [facility] ClinicStart: 06-28-2022 End: 08-88-0683Fqxhor outpatient visit 15 minutesEdgar Dhaliwal MD Work Phone: [facility] Neurological PhysiciansComment on above: Failed back syndrome, lumbosacralStart: 06-12-2022 End: 58-44-9037ypwehbeqojDiuuyc Braun Other [employer] Other Start: 50-79-6159Cxoedwnfu encounterClair [facility] ClinicStart: 06-05-2022 End: 50-18-5546Gltwry outpatient visit 15 minutesVijay Acuna MD Work Phone: [facility] Heart & Vascular PhysiciansComment on above:Chronic systolic HF (heart failure) (HCC) (Primary Dx); Hyperlipidemia, unspecified hyperlipidemia typeStart: 05-31-2022 End: 81-33-0949Djiokc outpatient visit 15 minutesEdgar Dhaliwal MD Work Phone: [facility] Neurological PhysiciansComment on above: Scoliosis, unspecified scoliosis type, unspecified spinal region (Primary Dx); Scoliosis of lumbar spine, unspecified scoliosis typeStart: 05-09-2022 End: 22-59-3074scvlgvotezCB CLAIR DAHLFacility:V4Wmlks: 04-20-2022 End: 11-46-6219Facycv follow up visit related to original Jorge Louis PA-C Work Phone: [facility] Neurological PhysiciansComment on above: Status post lumbar discectomy (Primary Dx); Facet arthropathyStart: 14-77-5721YntvjqRpacp Nead [facility] Heart & Vascular PhysiciansComment on above:Medication RefillStart: 04-05-2022 End: 06-66-7429xtkihcfrfeMUBKF D HIGHLANDERFacility:M0Tzlsw: 03-28-2022 End: 63-87-0980amsahzatmfSETNL D HIGHLANDERFacility:A9Paazv: 03-22-2022 End: 05-87-5342cxyyavvdspNIVBK D HIGHLANDERFacility:P1Noogj: 03-08-2022 End: 68-18-3708hluuksckjsTM DOCTOR MISCFacility:T5Eumti: 03-07-2022 End: 08-31-1457hqcsfcwrvhIpkynj Nabila Other [employer] Other Start: 95-58-5646Rwytej outpatient visit 15 minutes Clair [facility] ClinicStart: 03-02-2022 End: 94-11-6376Iwiohl follow up visit related to original Jorge Louis PA-C Work Phone: [facility] Neurological PhysiciansComment on above: Lumbar disc herniation with radiculopathy (Primary Dx); Status post discectomy; Facet arthropathyStart: 02-01-2022 End: 82-98-7465Zwjbkzwp Otto [facility] Neurological PhysiciansComment on above:Status post lumbar discectomy (Primary Dx)Start: 01-25-2022 End: 58-61-4956Mfimvg follow up visit related to original Joshuamarian Kim Louis PA-C Work Phone: [facility] Neurological PhysiciansComment on above: Lumbar disc herniation with radiculopathy (Primary Dx); Status post lumbar discectomyStart: 01-20-2022 End: 33-07-0670Kvfgkkff SupportSyuni Goldman [facility] Neurological PhysiciansComment on above:Lumbar disc herniation with radiculopathy (Primary Dx)Start: 01-13-2022 End: 87-70-4590Ooqfeivtlp hospital visit by Nadia Dhaliwal MD Work Phone: [facility] PeriopStart: 01-03-2022 End: 44-51-8378beguflrszfAM MEHDI RIVERA .Facility:W8Henfy: 01-02-2022 End: 03-30-5178Sgnwlpkb SupportTaneyda Cardozo [facility] Neurological PhysiciansStart: 12-29-2021 End: 59-71-1088Srci/qhp telephone evaluation 01-22 Dave Power KNOCKUP WORKER Work Phone: [facility] Heart Failure ClinicComment on above:HFrEF (heart failure with reduced ejection fraction) (HCC) (Primary Dx); Hypertension, unspecified typeStart: 11-24-2021 End: 06-63-5990Rirvai outpatient visit 15 minutesEdgar Dhaliwal MD Work Phone: [facility] Neurological PhysiciansComment on above: Lumbar disc herniation with radiculopathy (Primary Dx)Start: 11-09-2021 End: 11-35-0591Aixvki outpatient visit 25 minutesVijay Acuna MD Work Phone: [facility] Heart & Vascular PhysiciansComment on above:Chronic systolic HF (heart failure) (HCC) (Primary Dx); Pre-operative cardiovascular examination; Hyperlipidemia, unspecified hyperlipidemia typeStart: 11-09-2021 End: 73-87-6295Bdmgxlt encounter statusVijay Acuna MD Work Phone: [facility] Vascular PhysiciansStart: 64-38-1705Twtsl abstractingCarriemarylin Saray [facility] & Vascular PhysiciansStart: 69-60-0047Bhdyoyxphhdsx procedureCarriemarylin So [facility] & Vascular PhysiciansStart: 09-15-2021 End: 68-28-2147Zfgxcp outpatient visit 25 minutesVijay Acuna MD Work Phone: [facility] & Vascular PhysiciansComment on above:Chronic systolic HF (heart failure) (HCC) (Primary Dx); Pre-operative cardiovascular examination; Hyperlipidemia, unspecified hyperlipidemia typeStart: 09-15-2021 End: 03-13-9307Drksbpx encounter statusVijay Acuna MD Work Phone: [facility] Vascular PhysiciansStart: 32-48-3867TpevzzBpmkgma LiveBlanchard Valley [facility] Heart & Vascular PhysiciansComment on above:Medication RefillStart: 08-31-2021 End: 29-46-8514Llif/qhp telephone evaluation 11-20 Dave Buenouax KNOCKUP WORKER Work Phone: [facility] Heart Failure ClinicComment on above:HFrEF (heart failure with reduced ejection fraction) (HCC) (Primary Dx); Hypertension, unspecified typeStart: 99-15-2549Jemwzknjo to same day surgery centerVijay Acuna MD Work Phone: [facility] Vascular PhysiciansStart: 08-09-2021 End: 30-10-6169Eefu/qhp telephone evaluation 11-20 Dave Gonzalez Jannet KNOCKUP WORKER Work Phone: [facility] Heart Failure ClinicComment on above:HFrEF (heart failure with reduced ejection fraction) (HCC) (Primary Dx); Hypertension, unspecified typeStart: 03-84-2512Aglabbvrgvlqh procedureAlialessandra Huffman [facility] & Vascular PhysiciansStart: 08-03-2021 End: 91-33-3358zgxbnlnzdsNKKHU PARKERFacility:X5Oxgkd: 08-03-2021 End: 19-10-7023Lsvhsu outpatient visit 25 minutesVirolvin Acuna MD Work Phone: [facility] Heart & Vascular PhysiciansComment on above:Chronic systolic HF (heart failure) (HCC) (Primary Dx); Pre-operative cardiovascular examination; Abnormal stress test; Coronary artery disease involving barrow coronary artery of barrow heart without angina pectorisStart: 08-03-2021 End: 07-59-1734Nvvunph encounter statusVirolvin Acuna MD Work Phone: [facility] Vascular PhysiciansStart: 07-25-2021 End: 09-12-8321Dmvqgk outpatient visit 40 minutesVirolvin Acuna MD Work Phone: [facility] Heart Failure ClinicComment on above: Chronic systolic HF (heart failure) (HCC); Hypertension, unspecified type; HFrEF (heart failure with reduced ejection fraction) (HCC)Start: 07-06-2021 Orders OnlyMeir Huffman [facility] & Vascular PhysiciansComment on above:Chronic systolic HF (heart failure) (HCC) (Primary Dx)Start: 07-05-2021 End: 90-48-7115Igacjg outpatient new 45 minutesRandi Cruz Ernandez CNP Work Phone: [facility] & Vascular PhysiciansComment on above:LBBB (left bundle branch block) (Primary Dx); Pre-op testing; Chronic systolic HF (heart failure) (HCC)Start: 07-05-2021 End: 40-34-9566Azldkzr encounter statusRankevon Ernandez CNP Work Phone: [facility] Vascular PhysiciansStart: 18-01-6080Dagkgthxkmzkb examination doneMeir Huffman [facility] Work Phone: Start: 07-04-2021 End: 98-78-3950Ivdcpsgc SupportSyuni Goldman [facility] Neurological PhysiciansComment on above:Lumbar disc herniation with radiculopathy (Primary Dx)Start: 89-51-5580Hurajfqtunpr of care planSyuni Pateler [facility] Neurological PhysiciansStart: 05-25-2021 End: 92-61-1820pjcpeeygqaQqmwew Zaky Other [employer] Other Start: 72-75-2360Tllewtmia encounterSherhoa LagunasFPG Pain ManagementStart: 05-23-2021 End: 52-82-3057Evzhtw outpatient visit 15 minutesEdgar Dhaliwal MD Work Phone: [facility] Neurological PhysiciansComment on above: Lumbar disc herniation with radiculopathy; Tobacco abuseStart: 04-28-2021(Procedure) [facility]iSpanish [facility] CenterStart: 04-28-2021 End: 80-65-6418pzskmvtsqtIikfbd Janneth Other [employer] Other Start: 04-20-2021 End: 81-46-0844wimgydtzcwDtnyvd Janneth Other [employer] Other Start: 93-58-3235Dkfdck outpatient visit 25 minutes Kareem LagunasFPG Pain ManagementStart: 04-12-2021(Procedure) [facility]San [facility] CenterStart: 04-12-2021 End: 30-11-0699pxtisqczgiEaitux Zaky Other [employer] Other Start: 03-07-2021 End: 18-12-3303Vlczmr outpatient new 30 minutesEdgar Dhaliwal MD Work Phone: [facility] Neurological PhysiciansComment on above: Lumbar facet arthropathy (Primary Dx); Lumbar radiculopathy; Lumbar degenerative disc disease; Scoliosis, unspecified scoliosis type, unspecified spinal regionStart: 17-87-4588Zdlawljdgf Cathy Dhaliwal MD Work Phone: [facility] Neurological PhysiciansComment on above: Lumbar radiculopathy (Primary Dx) Procedures DateProcedureProcedure DetailPerforming ClinicianStart: 54-89-8824Qctlysyh cystoscope (physical object)Justin DE JESUS Start: 50-82-9295Tzmsj Mickie Dahl MD Work Phone: Start: 33-50-6203Nlfxg X-ray of right shoulderMD Clair Nabila Work Phone: Start: 52-78-6249Zvaid spine 1 view specify level Edgar Dhaliwal MD Work Phone: Start: 08-24-2022 End: 56-56-9403QUCMXNUPM SPINAL CORD STIMULATOR PERMANENTEdgar Dhaliwal MD Work Phone: Start: 85-72-3578Migjb typing serologic Estella Dhaliwal MD Work Phone: Start: 21-54-1694Rsvct spine thoracic 2 viewsEdgar Dhaliwal MD Work Phone: Start: 45-44-4665Bexwm spine lumbosacral 2/3 views Edgar Dhaliwal MD Work Phone: Start: 58-26-5677Crhta typing serologic Estella Dhaliwal MD Work Phone: Back structure, excluding neck (body structure) BILL HARTLEY ColonoscopyBILL ODILIA Hemorrhoids (disorder)BILL HARTLEY History of laminectomyBILL ODILIA Plan of Treatment DateCare ActivityDetailAuthorStart: 77-86-6709Gvhfdzhin vaccinationInfluenza Vaccine (#1)[facility]HealthStart: 10-17-5586Sjwjlfbepv hospital visit by physician 10/29/2024 11:00 AM EDT Hospital Encounter [facility] CT Scan [address] [place] [address] Vijay Acuna MD [address] [place] [address] [facility] [address] ScanStart: 10-29-2024 End: 09-00-4715Vckulwe encounter procedureOhThe [facility] Phys[facility] Start: 10-06-2024 End: 96-14-0953Hscsuen encounter jlidxjvjq32/04/2025 11:00 AM EDT Office Visit [facility] [address] [place] [address] Vijay Acuna MD [address] [place] [address] [facility] Vascular PhysiciansStart: 09-01-2024 End: 77-61-9307Xwyanbg encounter mjxafmmnb10/30/2025 11:20 AM EDT Office Visit [facility] [address] [place] [address] Vijay Acuna MD [address] [place] [address] [facility] & Vascular PhysiciansStart: 08-51-6252Kzydxadw identified in Urine by CultureVan Wert County Hospitaltart: 62-64-3435XkffbOhioHealth [facility] Start: 89-91-7821Ttldkrnmfcf Syncytial Virus Immunization: Risk, 60-74 Risk, or 75+ (1 - Risk 60-74 years 1-dose series)Respiratory Syncytial Virus Immunization: Risk, 60-74 Risk, or 75+ (1 - Risk 60-74 years 1-dose series)[facility] Center[facility]: 12-20-2023 End: 80-15-5870Dxphgdk encounter zqyjpihvn31/17/2024 10:30 AM EDT Office Visit [facility] [address] [place] [address] Giovani Maria DPM [address] [address] Plantar fasciitis (Primary Dx); Contracture of left ankleNOMS CI PODIATRYComment on above:Plantar fasciitis (Primary Dx); Contracture of left ankleStart: 12-13-2023 End: 92-87-2419Ceqjfgs encounter gvfefrhke01/10/2024 11:00 AM EDT Office Visit [facility] [address] [facility] [address] [place] [address] Giovani Maria DPM [address] [address] [facility] PODIATRYStart: 11-22-2023 End: 32-02-3553Goxwojqn Mhnmsiq5211/22/2023 11:40 AM EDT Clinical Support [facility] [address] [facility] [address] [place] [address] Giovani Maria DPM [address] [address] Plantar fasciitis (Primary Dx); Contracture of left ankleNOMS CI PODIATRYComment on above:Plantar fasciitis (Primary Dx); Contracture of left ankleStart: 11-08-2023 End: 47-63-9071Ejxmjres SupportNOMS CI PODIATRYComment on above:Plantar fasciitis (Primary Dx); Contracture of left ankleStart: 72-32-0421NWHTH-19 Vaccine ( season) COVID-19 Vaccine ( season)[facility]HealthStart: 17-20-8303Aqzzastoc vaccinationOhioHealthStart: 10-25-2023 End: 06-98-0582Juvtvfrz Lmjhxal6710/25/2023 10:50 AM EDT Clinical Support [facility] [address] [facility] [address] [place] [address] Giovani Maria DPM [address] [address] Plantar fasciitis (Primary Dx); Contracture of left ankleNOMS CI PODIATRYComment on above:Plantar fasciitis (Primary Dx); Contracture of left ankleStart: 07-17-2023 End: 10-43-8374Ywqgyxc encounter imivipajl93/14/2024 1:00 PM EDT Appointment [facility] [address] [place] [address] Vijay Acuna MD [address] [place] [address] [facility] Start: 19-48-3865Xlqfm X-ray of right shoulderXR shoulder RT min 2V*[facility] Hospitaltart: 72-17-5195YX Shoulder - right ViewsOhioHealth Pickerington Methodist Hospitaltart: 14-83-6436Ymmerzg referralUniversity Hospitals [facility] Work Phone: Start: 06-19-2023 End: 09-30-4508Tynlknz encounter qqdnjwams73/16/2024 2:00 PM EDT Office Visit [facility] [address] [place] [address] Vijay Acuna MD [address] [place] [address] [facility] Vascular PhysiciansStart: 03-06-2023 End: 10-39-0989Npyfibq encounter tbwsuqlyh70/02/2024 11:00 AM EST Appointment [facility] MRI [address] [place] [address] Caroline Carrion PA-C [address] [address] [facility] MRIStart: 02-06-2023 End: 23-89-1022Pgdcqsg encounter qvlsmyyru07/05/2023 2:30 PM EST Procedure visit [facility] [address] Office Building, [address]nd [place] [address] Caroline Carrion PA-C [address] [place] [address] Vikram Fowler MD [address] [address] [facility] Neurological PhysiciansStart: 01-11-2023 End: 39-74-8120Usuvifv encounter scupwubue69/09/2023 7:00 PM EST Appointment [facility] MRI [address] [place], [place] [address], [place] [address]-030-0283 Caroline Carrion PA-C [address] [address] [facility] MRIStart: 12-12-2022 End: 39-91-4635Innayg-up uyfjeixmu05/10/2023 2:00 PM EDT Follow-Up [facility] [address] [place] [address] Caroline Carrion PA-C [address] [address] [facility] Neurological PhysiciansStart: 11-08-2022 End: 95-40-9530Stbmmag encounter fmwkysjna62/06/2023 1:00 PM EDT Office Visit [facility] [address] [place] [address] Caroline Carrion PA-C [address] [address] [facility] Neurological PhysiciansStart: 11-03-2022 End: 23-01-8050Ivwvlwvnesno consultation with lkgyfcy8211/03/2022 3:30 PM EDT Telemedicine Telephone [facility] [address] [facility] [place] [address] Caroline Carrion PA-C [address] [address] [facility] Neurological PhysiciansStart: 93-98-5061XVMYN-19 Vaccine ( season)COVID-19 Vaccine ()[facility] Start: 52-44-1340Wtatkptvq vaccinationOhioHealthStart: 11-01-2022 End: 59-16-0889Jofxyd-up rxttoqadi33/30/2023 1:30 PM EDT Follow-Up [facility] [address] [place] [address] Caroline Carrion PA-C [address] [address] [facility] Neurological PhysiciansStart: 10-06-2022 End: 58-77-4929Cmhpek-up gwhnveeuz59/04/2023 1:00 PM EDT Follow-Up [facility] [address] [place] [address] Dionna Corrigan CNP [address] [address] [facility] Neurological PhysiciansStart: 09-08-2022 End: 37-81-1768Rtocsq-up agqbinyfp41/07/2023 10:00 AM EDT Follow-Up [facility] [address] [facility] [place] [address] Dionna Corrigan, SUSANNE [address] [address] [facility] Neurological PhysiciansStart: 09-01-2022 End: 62-41-9666Cnzggaul Lpmixsr6509/01/2022 11:30 AM EDT Clinical Support [facility] [address] [facility] [place] [address] [phone] Neurological PhysiciansStart: 08-04-2022 End: 46-62-8603Dijbdv-up jjvkijdom12/02/2023 12:00 PM EDT Follow-Up [facility] [address] [facility] [place] [place] [address] Dionna Corrigan CNP [address] [address] [facility] Neurological PhysiciansStart: 08-02-2022 End: 53-53-3723Lxummziv Dyxxnvg6708/02/2022 2:30 PM EDT Clinical Support [facility] [address] [facility] [address] [phone] Neurological PhysiciansStart: 08-01-2022 End: 09-23-2312ANVERUEGC SPINAL CORD STIMULATOR TEMPORARYINSERTION SPINAL CORD STIMULATOR TEMPORARY Failed back syndrome, lumbosacral 08/01/2022 8:49 AM EDT [facility]: 06-09[facility]2022 End: 23-35-0077Cpesjxu encounter /07/2023 3:00 PM EDT Office Visit [facility] [address] [facility] [place] [place] [address] Edgar Dhaliwal MD [address] [address] [facility] Neurological PhysiciansStart: 06-05-2022 End: 21-14-9358Eicbnwu encounter procedureOhThe [facility] Start: 04-20-2022 End: 48-88-2711Igoefek encounter bvleggifd14/16/2023 Office Visit Neurosurgery Erika Louis PA-C [address] [place] [address] [facility] Neurological PhysiciansStart: 02-09-2022 End: 19-76-6252Uxbpqj-up tuuvnhwah32/08/2022 Follow-Up Neurosurgery Erika Louis PA-C [address] M[address] [place] [address] [facility] PhysiciansStart: 02-01-2022 End: 10-85-5520Xdwarcysd to same day surgery xwluzr5802/01/2022 Clinical Support [facility]surgery[facility] Neurological PhysiciansStart: 01-25-2022 End: 34-55-2146Lwdiew-up qotcmkmiw74/23/2022 Follow-Up Neurosurgery Erika Louis PA-C [address] [place] [address] [facility] PhysiciansStart: 01-13-2022 End: 59-14-1650Egzbnthlh to same day surgery bmybgy4801/13/2022 Surgery Edgar Dhaliwal MD [address] [place] [address] Right L2-3 Minimally Invasive Hemilaminectomy, Foraminotomy, andDiscectomyLima City Hospital PeriopComment on above:Right L2-3 Minimally Invasive Hemilaminectomy, Foraminotomy, and DiscectomyStart: 01-13-2022 End: 15-26-1076ZXEBDJMNIYG DECOMPRESSION LUMBAR MINIMALLY INVASIVE SINGLE LEVEL [facility] Main ORStart: 63-13-7412Wmnayfycbi hospital visit by /11/2022 Hospital Encounter Edgar Dhaliwal MD [address] [place] [address] [facility] PeriopStart: 01-03-2022 End: 60-88-4690Ozgxmhl encounter owrrxqvzu87/01/2022 Office Visit Cardiology Vijay Acuna MD [address] [place] [address] [facility] Heart & Vascular PhysiciansStart: 01-02-2022 End: 81-35-2458Isegrjjmo to same day surgery eysvyk2501/02/2022 Clinical Support [facility]surgeryOhThe [facility] Neurological PhysiciansStart: 01-02-2022 End: 33-07-1187Oryreoe encounter /31/2022 Office Visit Pre-Admission Testing Edgar Dhaliwal MD [address] [place] [address] [id number] [facility] Preadmission TestingStart: 12-29-2021 End: 05-56-0316Rywaclemjzjb consultation with kaumfny3012/29/2021 Telemedicine Telephone Cardiology Ami Power, KNOCKUP WORKER [address] [place] [address] [facility] Heart Failure ClinicStart: 11-14-2021 End: 84-31-0503Mqdkvzr encounter kmconxtpf82/12/2022 Office Visit Neurosurgery Edgar Dhaliwal MD [address] [place] [address] [facility] Neurological PhysiciansStart: 11-09-2021 End: 85-78-4413Ownpgjp encounter clsbpgumq48/07/2022 Office Visit Cardiology Vijay Acuna MD [address] [place] [address] [facility] Heart & Vascular PhysiciansStart: 11-03-2021 Influenza vaccinationOhioHealthStart: 11-03-2021 End: 92-66-9586Lhodfytvnbdo consultation with tvbsbrt6911/03/2021 Telemedicine Telephone Cardiology Ami Power, KNOCKUP WORKER [address] [place] [address] [facility] Heart Failure ClinicStart: 10-25-2021 End: 78-82-4826Zefhytz encounter anfbajfbo62/23/2022 Appointment Cardiology Vijay Acuna MD [address] [facility] [place] [address] [facility] Heart & Vascular PhysiciansStart: 10-16-2021 End: 15-10-5480JcrcvzqeexziziqnVgsvlvjkrrqmrk complete Echocardiography Routine Chronic systolic HF (heart failure) ([facility]) Expected: 10/16/2021, Expires: 09/15/2022[facility] Work Phone: Comment on above:Expected: 10/16/2021, Expires: 09/15/2022Start: 10-11-2021 End: 43-02-1007Skjkorr encounter luluitnlx16/09/2022 Office Visit Neurosurgery Edgar Dhaliwal MD [address] [facility] [address] [address] [facility] Neurological PhysiciansStart: 09-15-2021 End: 39-56-5519Jhtezjt encounter uhxlbzhwx56/14/2022 Office Visit Cardiology Vijay Acuna MD [address] [place] [address] [facility] Heart & Vascular PhysiciansStart: 08-31-2021 End: 73-79-9475Txodioipctvi consultation with xuzhsnv0408/31/2021 Telemedicine Telephone Cardiology Ami Power CNS [address] [place] [address] [facility] Heart Failure ClinicStart: 08-23-2021 End: 14-94-4347Zqgznjpiz to same day surgery zdbxwp6908/23/2021 Surgery Cardiology Rios Verduzco MD [address] [place] [address] Left Heart Cath [facility] PTCA/StentL[facility] Hospital Cardiovascular LabComment on above:Left Heart Cath Possbile PTCA/StentStart: 54-56-4669Ytrryltkfy hospital visit by xufaawqcy23/21/2022 Hospital Encounter Cardiology Rios Verduzco MD [address] [place] [address] [facility] Procedural Care Unit Start: 08-09-2021 End: 30-83-2209Smwhzvbjofpg consultation with zsurcdw3008/09/2021 Telemedicine Telephone Cardiology Ami Power, MONTSERRAT [address] [place] [address] [facility] Heart Failure ClinicStart: 08-03-2021 End: 62-24-1412Cfegduo encounter fpcpxuyub53/01/2022 Office Visit Cardiology Vijay Acuna MD [address] [place] [address] [facility] Heart & Vascular PhysiciansStart: 07-25-2021 End: 53-16-7327Vfychxy encounter rordwhgwb40/23/2022 Office Visit Cardiology Vijay Acuna MD [address] [place] [address] Ami Power KNOCKUP WORKER [address] [place] [address] [facility] Start: 07-21-2021 End: 67-66-7340Tronrlh encounter zohnesqub31/19/2022 Appointment Cardiology Vijay Acuna MD [address] [place] [address] [facility] Heart & Vascular PhysiciansStart: 07-12-2021 End: 39-09-5985Gzqqodzzj to same day surgery fjtaku5007/12/2021 Surgery Edgar Dhaliwal MD [address] [place] [address] Right L2-L3 MIS Hemilaminectomy, Foraminotomy, and DiscectomyLima City Hospital PeriopComment on above:Right L2-L3 MIS Hemilaminectomy, Foraminotomy, and DiscectomyStart: 07-12-2021 End: 26-85-9697KZAHHLHBION DISCECTOMY MINIMALLY INVASIVE SINGLE LEVELLAMINECTOMY DISCECTOMY MINIMALLY INVASIVE SINGLE LEVEL Lumbar disc herniation with radiculopathy 07/12/2021 6:50 AM [facility] ORStart: 07-12-2021 Subsequent hospital visit by ucyrrjgse86/10/2022 Hospital Encounter Edgar Dhaliwal MD [address] [place] [address] [facility] PeriopStart: 07-11-2021 End: 03-54-6790Axgofleff to same day surgery rqjomw2707/11/2021 Surgery Edgar Dhaliwal MD [address] [address] Right L2-L3 MIS Hemilaminectomy, Foraminotomy, and DiscectomyLima City Hospital PeriopComment on above:Right L2-L3 MIS Hemilaminectomy, Foraminotomy, and DiscectomyStart: 07-11-2021 End: 96-69-2201JXMSHIKRGFW DISCECTOMY MINIMALLY INVASIVE SINGLE LEVELLAMINECTOMY DISCECTOMY MINIMALLY INVASIVE SINGLE LEVEL Lumbar disc herniation with radiculopathy 07/11/2021 9:50 AM [facility] ORStart: 07-11-2021 Subsequent hospital visit by /09/2022 Hospital Encounter Edgar Dhaliwal MD [address] [place] [address] [facility] PeriopStart: 07-08-2021 End: 90-95-0990Qzrhfsrxvw daoyyyfwmvxp50/06/2022 Anesthesia Event Alonso Cespedes MD [address] [place] [address] [facility] PeriopStart: 07-05-2021 End: 79-08-4982Ztyddwn encounter cbyxtcedu34/03/2022 Office Visit Cardiology Daylin Ernandez, COUNSELOR/ART THERAPIST [address] [place] [address] Vijay Acuna MD [address] [place], [place] [phone] (Work) [facility] Heart & Vascular PhysiciansStart: 07-04-2021 End: 69-22-8153Akygvyj encounter rzqgaxpqy93/02/2022 Office Visit Pre-Admission [facility] Preadmission TestingStart: 07-04-2021 End: 82-44-2071Pqwoaxoan to same day surgery agyomu6407/04/2021 Clinical Support [facility]surgerySouthern [facility] Neurological PhysiciansStart: 87-94-2210IXHAA-19 Vaccine (4 - Booster for Moderna series)COVID-19 Vaccine (4 - Booster for Moderna series)[facility]Start: 18-40-1422VMHMJ-19 Vaccine (4 - Booster for Moderna series)COVID-19 Vaccine (4 - Booster for Moderna series)[facility]HealthStart: 16-54-0836PGXVM-19 Vaccine (4 - Moderna series)COVID-19 Vaccine (4 - Moderna series)[facility]HealthStart: 40-21-1700Sbkkllxox vaccinationSequential Influenza Vaccine (#1)[facility]HealthStart: 49-57-2083Gwzcrabpcxkjhh of herpes zoster vaccine Zoster Vaccines (1 of 2)[facility]HealthStart: 49-44-1831Farzfkqsm for malignant neoplasm of colonOhioHealthStart: 59-56-9137Uhzebgcgj for malignant neoplasm of breastMammogramOhioHealthStart: 18-86-4847Vpatouble for malignant neoplasm of cervixOhioHealthStart: 86-30-0707Lzjwdiphu for malignant neoplasm of cervixPap SmearOhioHealthStart: 61-43-1526Wmvspqvcetfm Vaccine: Age 50+ (1 of 2 - PCV) Pneumococcal Vaccine: Age 50+ (1 of 2 - PCV)[facility]Start: 02-18-1983 Pneumococcal Vaccine: Ped or At-Risk (1 of 2 - PCV)Pneumococcal Vaccine: Ped or At-Risk (1 of 2 - PCV)[facility]HealthStart: 53-07-9423Dudknlfkp C screeningHepatitis C ScreeningOhioHealthStart: 64-66-4313CLH screeningHIV ScreeningOhioHealthStart: 47-23-6623Idgvrnkdrm screening using PHQ-9 (Patient Health Questionnaire 9) scoreOhioHealthStart: 39-86-0212Nthlzutjlgwy Vaccine: Ped or At-Risk (1 - PCV) Pneumococcal Vaccine: Ped or At-Risk (1 - PCV)[facility]Start: 02-18-1970 Pneumococcal Vaccine: Ped or At-Risk (1 of 2 - PCV)Pneumococcal Vaccine: Ped or At-Risk (1 of 2 - PCV)[facility]HealthStart: 82-94-6401Podrsfdbovpx Vaccine: Ped or At-Risk (1 of 2 - PPSV23)Pneumococcal Vaccine: Ped or At-Risk (1 of 2 - PPSV23) [facility]Start: 19-05-5975Gburxqj and physical examination, annual for health [facility] VisitOhioHealthStart: 12-17-1967Medicare Wellness Visit Medicare Wellness VisitOhioHealthStart: 33-44-1422Ccnirvtna for malignant neoplasm of cervixPap SmearOhioHealthStart: 51-27-5920Hjlmcfmom for malignant neoplasm of colonOhioHealthStart: 37-11-7781Jllivsk vaccinationTetanus: Every 10yrsOhioHealthAmbulatory ECG Event MonitorAmbulatory ECG Event Monitor Cardiac Services Routine Palpitations Ordered: 10/06/2024OhioHealthComment on above: Ordered: 10/06/2024omprehensive metabolic 2000 panel - Serum or [facility]Kind[facility] End: 55-20-5821LZ CCTA HEART (ELECTRIC METER TESTER HELPER READ)CT CCTA HEART (ELECTRIC METER TESTER HELPER READ) Imaging Routine Chest pressure Chronic systolic HF (heart failure) ([facility]) 1 Occurrences starting 10/06/2024 until 12/06/2025OhioHealthComment on above:1 Occurrences starting 10/06/2024 until 12/06/2025 End: 37-47-4871JRN Heart and Coronary arteries WO and W contrast IVOhioHealth Comment on above:1 Occurrences starting 10/06/2024 until Occurrences starting 10/28/2024 until 10/06/2025 End: 67-03-1813JjngrbkrqrbvgocsBtzghevphztlvo complete Echocardiography Routine DE OLIVEIRA (dyspnea on exertion) Chest pressure 1 Occurrences starting 06/19/2023 until 08/18/2024[facility] Work Phone: Comment on above:1 Occurrences starting 06/19/2023 until 08/18/2024 End: 85-30-6267KwkwbyixhqsoewuaPqrjrrarzwhgsw complete Echocardiography Routine Chest pressure Chronic systolic HF (heart failure)([facility]) 1 Occurrences starting 10/06/2024 until 12/06/2025[facility] Work Phone: Comment on above:1 Occurrences starting 10/06/2024 until 12/06/2025 End: 56-13-9472Pxthllfnbj Flow ReserveOhioHealthComment on above:1 Occurrences starting 10/06/2024 until Occurrences starting 10/28/2024 until 10/06/2025LAMINECTOMY DISCECTOMY MINIMALLY INVASIVE SINGLE LEVELLAMINECTOMY DISCECTOMY MINIMALLY INVASIVE SINGLE LEVEL Lumbar disc herniation with radiculopathSelect [facility] POSSIBLE PTCA/STENTLEFT HEART CATH POSSIBLE PTCA/STENT Chronic systolic HF, Abnormal [facility] End: 29-12-0205UY Brain WO contrastMR Brain Without Contrast Imaging Routine Ellison sign present 1 Occurrences starting 01/29/2023 until 01/30/2024 [facility] Work Phone: Comment on above:1 Occurrences starting 01/29/2023 until 01/30/2024 End: 99-00-7818JVJ of cervical spine without contrastMR Cervical Spine Without Contrast Imaging Routine Ellison sign present Numbness and tingling in left arm 1 Occurrences starting 12/13/2022 until 12/14/2023[facility] Work Phone: Comment on above:1 Occurrences starting 12/13/2022 until 12/14/2023 End: 93-79-6867BTR of lumbar spine without contrastMR Lumbar Spine Without Contrast Imaging Routine Lumbar radiculopathy Lumbar facet arthropathy Lumbar degenerative disc disease Scoliosis, unspecified scoliosis type, unspecified spinal region 1 Occurrences starting 03/08/2021 until 03/08/2022[facility] Work Phone: Comment on above:1 Occurrences starting 03/08/2021 until 03/08/2022 End: 81-18-2695TAS of lumbar spine without contrastMR Lumbar Spine Without Contrast Imaging Routine Status post lumbar discectomy 1 Occurrences starting 04/20/2022 until 04/20/2023[facility] Work Phone: Comment on above:1 Occurrences starting 04/20/2022 until 04/20/2023atient referralUniversity Hospitals [facility] Work Phone: Procedure on tissue specimenOhioHealth Work Phone: Comment on above:Release Upon Ordering for 1 Occurrences starting 01/13/2022, 1 completed End: 82-79-7852Fzsupzuiuavv myocardial perfusion studyNM Myocardial Perfusion Multiple SPECT Imaging Routine Chronic systolic HF (heart failure) ([facility]) 1 O ccurrences starting 07/06/2021 until 07/06/2022[facility] Work Phone: Comment on above:1 Occurrences starting 07/06/2021 until 07/06/2022 End: 56-75-7462Gwiczmutofr [Units/volume] in Serum or PlasmaTSH with Reflex Free T4 Lab Routine Chronic systolic HF (heart failure) ([facility]) 1 Occurrences starting 11/09/2021 until 11/09/2022[facility] Work Phone: Comment on above:1 Occurrences starting 11/09/2021 until 11/09/2022XR OR T-Spine 2 ViewsXR OR T-Spine 2 Views Imaging Routine 08/01/2022 9:45 AM EDTOhioHealth Work Phone: [facility] Immunizations Immunization DateImmunizationNotesCare TxaqzpfdWubcrjse77-17-9894GRZV-EuR-2 (COVID-19) mRNA-1273 vaccineJustin DE JESUS [facility]04-23-2021SARS-CoV-2 (COVID-19) mRNA-1273 vaccineJustin DE JESUS [facility]03-26-2021SARS-CoV-2 (COVID-19) mRNA-1273 vaccineJustin DE JESUS [facility] Payers DatePayer CategoryPayerPolicy [id number] HMOMMO MANAGED MEDICARE O [id number] MedicaidAETNA MEDICARE ADVANTAGE Member Subscriber Plan / Payer (Effective 2023-Present) Name: Verito Brennan Relation to Subscriber: Self Name: Verito Brennan Payer ID: 1 (NAIC) Type: Not on file Address: [facility] [id number] [place] [id number] MedicareAETNA MEDICARE ADVANTAGE AETNA MEDICARE REPLACEMENT [id number] 2023-Present [address] [place] [address] [id number] [id number] 2024 [id number] [id number]-[id number]wpot 1.2.840.390503.1.13.385.2.7.3.857[id number] 2.840.1.677976.3.57[id number] 2..840.1.698191.3.579.2.19083-88-2250Pyghsyc3430504 2..840.1.907474.3.579.2.60251-10-0455Bgtcdyj6348473 2..840.1.445381.3.579.2.72073-53-5427Izkexlu2739085 2..840.1.331577.3.579.2.10920-47-3762Slijkld7459236 2..840.1.759681.3.579.2.57370-33-9655Fztgdsw3200822 2.840.1.047710.3.579.2.56475-64-5913Trkmhvm1076034 2..840.1.161054.3.579.[id number] 2.840.1.862761.3.579.2.465279-90-7401Ygnhwwx8704169 2..840.1.447507.3.579.2.003857-34-8021Ahxxnzu6103003 2..840.1.550474.3.579.2.955454-21-0889Knhadgj8141169 2..840.1.080161.3.57[id number] 2.840.1.897327.3.579.[id number] 2.840.1.588330.3.579.2.04880-25-3207Osnrykl06406054 2.840.1.450461.3.579.2.47817-16-0660Ikqmfcz87944044 2.840.1.548573.3.579.[id number] 2.840.1.419062.3.579.[id number] 2.840.1.646596.3.57[id number] 2.0.1.373159.3.579.[id number] 2.840.1.567502.3.579.2.36304-67-6819Dwioowh419855826 2.840.1.261467.3.579.2.[id number] 2..840.1.534127.3.579.2.633[id number] 2.840.1.197151.3.579.2.8[id number] 2.16.840.1.036215.3.579.[id number] 2.16.840.1.540731.3.579.2.29176-06-2258Tzpoqzt141172623 2.16.840.1.601203.19 19-04-5736Husvnxt78785486 2.16.8[id number] 2.16.840.1.438304.3.579.2.899Dckbsyk16926293 2.16.840.1.702051.3.579.2.531 Social History DateTypeDetailFacilityStart: 07-71-5246Gakgeyh smoking status NHISTobacco smoking consumption unknownOhioHealthStart: 35-14-5289Uqv Assigned At BirthNot on fileOhioHealthStart: 03-07-2021 End: 77-07-9258Jnfcebl smoking status NHISSmokes tobacco dailyOhioHealthStart: 03-07-2021 End: 88-96-3012Teldjhrvwg smoked current (pack per day) - Reported0.5[facility] Start: 03-07-2021 End: 56-49-7901Phjlijl use and exposureSmokeless tobacco non-userOhioHealth Start: 03-08-2021 End: 54-58-0107Jlzakbq intakeEx-drinker (finding)[facility]HealthStart: 05-13-2021 End: 77-37-8455Dtfxwljv to SARS-CoV-2 (event)Not sureOhioHealthStart: 07-05-2021 End: 80-82-8143Wgprhxk Commentsmokes 1-2 cigarettes dailyOhioHealthHistory of tobacco useCigarette SmokerOhioHealthStart: 04-23-2022 End: 10-52-6592Jtx Assigned At BirthMagruder Memorial Hospitaltart: 01-25-2022 End: 38-93-3413Nfhkhah smoking status NHISOccasional tobacco smokerOhioHealth Start: 82-33-3927Yyzflos Commentsmokes 1-2 cigarettes once in a while during stressful times.[facility]HealthStart: 75-70-6590Wcgdsaq smoking status NHISSmoker (finding)[facility]art: 37-06-5792Ira Assigned At FemaleOhioHealth [facility] Hospitaltart: 11-08-2023 End: 04-56-7958Lfvqhvmpy beverage intakeDeferNONM HealthcareStart: 05-08-2024 End: 67-59-5292GqcTyncsr (finding)[facility] Hospitaltart: 06-12-2024 End: 46-40-6238Utjsiwl smoking statusLight tobacco smoker (finding)[facility] smoking statusNever [facility] BellueSexual Orientation [facility] Start: 56-24-3797Nazaomb CommentoccOhioHealth Medical Equipment Procedure CodeEquipment CodeEquipment Original TextEquipment IdentifierDates Hemostat 8 X 12.5cm X 10mm Surgifoam Gelatin Sponge - Sna [id number])NA, [id number]_imp FDAStart: 01-13-2022 Lead 60cm Perc Octrode Trial - [id number]: 64-86-6462Xdxy 60cm Penta - [id number]: 67-34-9086Rjccfub on above:Description: MRI system type 1.5T cylindrical-bore magnet, horizontal field [...] Hemostatic Matrix Fast Prep Floseal - Sna ()[id number](21)NA, [id number]_[facility] FDAStart: 01-13-2022 Hemostat 4 X 8in Surgicel - Sna()[id number](21)NA, [id number]_imp FDAStart: 61-23-2537Equiahdt 2 X 4in Surgicel Fibrillar - Sna ()[id number](21)NA, [id number]_imp FDAStart: 01-13-2022 Kit 8ml Matrix Hemostatic W/Thrombin Surgiflo - Sn/[id number]: 08-24-2022 Generator Neurostimulator Implantable Xr5 [facility] - [id number]_impStart: 72-11-2796Ifencws on above:Description: MRI system type 1.5T cylindrical-bore magnet, horizontal field [...] 2 X 4in Surgicel Fibrillar - Sn/A ()[id number](21)N/A, [id number]_imp FDAStart: 08-24-2022 Hemostat 4 X 8in Surgicel - Sn/A()[id number])[id number](21)N/A, [id number]_imp FDAStart: 09-20-3699Lgtyqrzz 8 X 12.5cm X 10mm Surgifoam Gelatin Sponge - Sn/[id number]_wzsFjesp: 82-06-7791Vrsu 60cm Perc Octrode Trial - [id number]: 08-01-2022 Functional Status PyfaSdwntlzextKovyadYjkhcfqa83-34-2598Rsvpidkfyv StatusN/AExec[facility] Clinical Notes 12-02-2014 to 10-06-2024 Note Date & GiahEqtvRwajhkoh35-05-7220 NoteCardiology Clinic Visit Heart & Vascular [facility] 10/06/2024 Vijay Acuna MD [address] [place] [id number] Patient: Verito Brennan Date of : 1965 [...] in about 6 months (around 04/08/2025). Vijay Acuna MD [facility] Non-Invasive Cardiology [facility] Heart and Vascular Chief Complaint: HF Subjective [...] Negative. Skin: Negative. Musculoskeletal: Negative. Gastrointestinal: Negative. Genito (more content not included)...[facility] Qjoodpbosi34-91-1840 History of Present illness Narrative* Vijay Acuna MD - 10/06/2024 11:01 AM EDT Cardiology Clinic Visit Heart & Vascular [facility] 10/06/2024 Vijay Acuna MD [address] [facility] [address] Patient: Verito Brennan Date of : [...] intake. She can continue her current fluid intake.We did discuss compression stockings. I have ordered an echocardiogram to reevaluate her heart pumping function. Discussed management of stress anxiety and depression. Patient will call her primary care. Chest pain-her chest pain is atypical in nature. She does have chest pain episodes with stress and anxiety. During her the visit she did have an event while thinking of her brother. We discussed thatit would be unusual for her to have obstructive coronary artery disease 3 years from her left heart catheterization however there was a possibility of this. We discussed nuclear stress testing versusa cardiac CT. Given that her nuclear stress [...] in about 6 months (around 04/08/2025). Vijay Acuna MD [facility] Non-Invasive Cardiology [facility] Heart [facility] Vascular Chief Complaint: HF Subjective [...] she was driving to meet with her brothersdoctors to discuss taking him off life support. She had another event in September when she was washing her car. It was hot that day. Feels really tired. Left lightheaded with these events. Reports that she as chest pressure after eating. Reports that if she burps it resolves the pressure. This has beengoing on for a year. 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 aspirin [...] mouth daily . naloxone (NARCAN) 4 mg/actuation [place] Administer 1 spray into one nostril for [...] arm, Patient Position: Sitting, BP Cuff Size: X- large Adult) Pulse 86 Ht 5' 10 LMP [...] right ventricle systolic pressure is 38 mmHg. [facility] 08/23/21 Left Main The vessel is moderate [...] 08/03/2021 HDL 56 08/03/2021 documented in this pxlymflykPnhrRhxhaq95-70-1203 Instructions* Patient Instructions* Meir Huffman RN - 10/06/2024 10:49 AM EDT Images from the original note were not included. Pepcid 20 mg daily, you can buy this over the counter STOP caffeine intake Talk to your primary care provider regarding your concerns anxiety and depression CARDIAC CTA Appointment Time and Date: Please arrive at [facility]. Please park in the garage next to the medical office building. If needed, gun stocker parking is available at the front entrance of the hospital. Please report to the first floor visitor information desk inside the main entrance of the hospital to get registered. If your physician requires blood work prior to your exam, you will be given an order for blood workthat may be performed at the facility of your choice within four weeks prior to the scan. Procedure Descriptions: You must be able to lie flat on your back for the duration of the exam. A non- ionic contrast material will be injected through and IV into the arm or hand. This contrast will enable the blood vesselsto be visualized. Patient Preparation: If you have an IV dye/contrast allergy, please take prescribed prednisone (50 mg) 13 hours prior tothe procedure, 7 hours prior to procedure and bring the last dose with you to the hospital to take it 1 hour prior to the procedure. You will also need to bring benadryl 50 mg with you the day of your procedure to take 1 hour prior to the procedure. DO NOT take Viagra, Revatio, Cialis, or Levitra at least 72 hours before the test as they can causean unsafe drop in blood pressure during the test. DO NOT eat 4 hours prior to the scan. Please avoid drinking caffeinated soft drinks, tea, or coffee. Other items that contain caffeine toavoid are chocolate, over the counter medications such as Excedrin, and Guarana which can be found in energy drinks and snack bars. Drink plenty of fluids prior to the exam and after for hydration and to help flush the dye out of your body. If you breastfeed and are concerned about whether the dye used in this test is safe, talk to your doctor. Most experts believe that very little dye passes into breast milk and even less is passed on to the baby. But,if you prefer, you can store some of your breast milk ahead of time and use it for a day or two after the test.No smoking or use of products containing nicotine for 24 hours prior to your procedure. This includes NO chewing tobacco, cigarettes, cigars, or vaping. Patient must be cooperative and able to follow instructions. Remove all jewelry from all parts of the body. Wear comfortable clothing and shoes. Medications may be taken with a minimal amount of water. Any additional medications will be discussed during procedure. Questions/Cancellations: Please contact your care team or the office at [phone]. [facility] and Vascular Holter Department MICA Valdez [phone] [employer] ([employer]) [phone] IMPORTANT! [employer] will be calling you from an [phone] or [phone] number. You MUST answer this phone calland verify your address with the company, otherwise the monitor WILL NOT be mailed to you. [employer] occasionally sends out monitors without verifying address so if you have not heard from them within a week, please reach out to them to check on tracking status. If you do not receive a call from them within the week, feel free to reach out to them to verify your address. MONITOR END DATE: ONCE YOU RECEIVE, PLEASE WEAR FOR 30 DAYS Monitor Essentials 1. The device is waterproof. Showers are OKAY. Make sure you shave chest hair and clean and dry the skin before placing the monitor on your chest. 2. The monitor battery typically lasts 3-5 days, after this timeframe it will need to be charged. The lithopone charger is included in the box. 3. Extra patches are inside of the box. Sensitivity patches are automatically mailed with each monitor. If you are wearing the monitor for 30 days, I suggest calling [employer] and requesting extra patches to be mailed to you once you leave the office so you receive them before you run out. [phone] 4. Please DO NOT return the device to [facility] after the study has been completed. It will be the patient's responsibility to return the device to [facility]. 5. After the device is mailed, it will take 2-3 weeks for your results to be returned to you. It is the ordering provider s nurse responsibility to call you with the results. [facility] Drop Off Box Locations Number for [facility]: [id number] [address] [place], [address] [address] [place], [address] [place], [address] [facility] STORE # 5219 [address] [place], [address] [address] [place], [address] [facility] [address] [facility], [place], [address] [facility] [address] [address] [place], [address] [employer] ST[address] [place], [address] [facility] [address], [place], [address] [place] [facility] [address], [place], [address] [employer] STORE [address]1042 [address], [place], [address] [facility] [address] [facility], [place], [address] [facility] [address] [place], [address] [facility] [address] [place] [address] [facility] STORE # 1684 [address] [place], [address] [employer] STORE [address] [place], [address] How to contact your Care Team: Provider: Vijay Acuna MD Nurse: Meir Huffman RN In case of an emergency please call 911. REFILLS: When in need for refills please call your care team or the office at [phone]. Please include medication name, pharmacy name, and specify 30-day or 90-day supply. Please check with your pharmacy within 24 hours of request for your refill. You must follow up as directed to continue current refills. Thank you documented in this [id number] Telephone encounter Note* Telephone Encounter - Tamie Enrique MA - 09/16/2024 8:15 AM EDT Last ov 06/19/23. Recall in place. Refill appropriate [facility] Work Phone: 1(294) 524-261407-15-2025 Miscellaneous Notes* Telephone Encounter - Tamie Enrique MA - 09/16/2024 8:15 AM EDT Last ov 06/19/23. Recall in place. Refill appropriate documented in this [id number] Telephone encounter Note* Telephone Encounter - Tamie Enrique MA - 09/15/2024 8:54 AM EDT Last ov 06/19/23. Upcoming ov 10/06/24. Refill appropriate. [id number] Miscellaneous Notes* Telephone Encounter - Tamie Enrique MA - 09/15/2024 8:54 AM EDT Last ov 06/19/23. Upcoming ov 10/06/24. Refill appropriate. documented in this [id number] Hospital Discharge instructions Patient Education 07/22/2024 13:27:56 Hematuria, Adult Hematuria, Adult Hematuria is blood in the urine. Blood may be visible in the urine, or it may be identified with a test. This condition can be caused by infections of the bladder, urethra, kidney, or prostate. Otherpossible causes include: Kidney stones. Cancer of the urinary tract. Too much calcium in the urine. Conditions that are passed from parent to child (inherited conditions). Exercise that requires a lot of energy. [...] blood in your urine, even if it ispainless or the blood stops without treatment. Blood in the urine, when it happens and then stops and then happens again, can be a symptom of a very serious condition, including cancer. There is no pain in the initial stages of many urinary cancers. Follow these instructions at home: Medicines Take ffhl-gfc-cbktcmn and prescription medicines only as told by your health care provider. If you were prescribed an antibiotic medicine, take it as told by your health care provider. Do notstop taking the antibiotic even if you start to feel better. Eating and drinking Drink enough fluid to keep your urine pale yellow. It is recommended that you drink 3 4 quarts (2.83.8 L) a day. If you have been diagnosed with an infection, drinking cranberry juice in addition tolarge amounts of water is recommended. Avoid caffeine, tea, and carbonated beverages. These tend to irritate the bladder. Avoid alcohol because it may irritate the prostate (in males). General instructions If you have been diagnosed with a kidney stone, follow your health care provider's instructions about straining your urine to catch the stone. Empty your bladder often. Avoid holding urine for long periods of time. If you are female: ?After a bowel movement, wipe from front to back and use each piece of toilet paper only once. ?Empty your bladder before and after sex. Pay attention to any changes in your symptoms. Tell your health care provider about any changes or any new symptoms. It is up to you to get the results of any tests. Ask your health care provider, or the department that is doing the test, when your results will be ready. Keep all follow-up visits. This is important. Contact a health care provider if: You develop back pain. You have a fever or chills. You have nausea or vomiting. Your symptoms do not improve after 3 days. Your symptoms get worse. Get help right away if: You develop severe vomiting and are unable to take medicine without vomiting. You develop severe pain in your back or abdomen even though you are taking medicine. You pass a large amount of blood in your urine. You pass blood clots in your urine. You feel very weak or like you might faint. You faint. Summary Hematuria is blood in the urine. It has many possible causes. It is very important that you tell your health care provider about any blood in your urine, even ifit is painless or the blood stops without treatment. Take sqwu-lct-dnlfmeh and prescription medicines only as told by your health care provider. Drink enough fluid to keep your urine pale yellow. This information is not intended to replace advice given to you by your health care provider. Make sure you discuss any questions you have with your health care provider. Document Revised: 10/20/2020 Document Reviewed: 10/20/2020 [employer] Patient Education 2023 [employer]. Follow Up Care 06/19/2024 11:37:29 With:NEAL CHEN, Justin Griffiths, URL Address: [facility] [address], [place] [address]- When: Unknown [facility] 05-20-2025 NotePatient Education Urology Hematuria, Adult Hematuria is blood in the urine. Blood may be visible in the urine, or it may be identified with a test. This condition can be caused by infections of the bladder, urethra, kidney, or prostate. Otherpossible causes include: ??? Kidney stones. ??? Cancer [...] blood in your urine, even if it ispainless or the blood stops without treatment. Blood in the urine, when it happens and then stops and then happens again, can be a symptom of a very serious condition, including cancer. There is no pain in the initial stages of many urinary cancers. Follow these instructions at home: Medicines ??? Take bcav-mbn-tmiheaj and prescription medicines only as told by your health care provider. ??? If you were prescribed an antibiotic medicine, take it as told by your health care provider. Donot stop taking the antibiotic even if you [...] kidney stone, follow your health care provider's instructionsabout straining your urine to catch the stone. [...] Tell your health care provider about any changesor any new symptoms. ??? It is up [...] the blood stops without treatment. ??? Take iijg-ozu-dkzxyfu and prescription medicines only as told by your health care provider. ??? Drink enough fluid to keep your urine pale yellow. This information is not intended to replace advice given to you by your health care provider. Make sure you discuss any questions you have with your health care provider. Document Revised: 10/20/2020 Document Reviewed: 10/20/2020 [employer] Patient Education ? 2023 [employer].[facility] 06-12-2024 Evaluation + Plan note Diagnostic Tests Pending * Urine Cytology ([facility]) 06/12/24 [facility] [id number] NotePatient Education Urology Hematuria, Adult Hematuria is blood in the urine. Blood may be visible in the urine, or it may be identified with a test. This condition can be caused by infections of the bladder, urethra, kidney, or prostate. Otherpossible causes include: ??? Kidney stones. ??? Cancer [...] blood in your urine, even if it ispainless or the blood stops without treatment. Blood in the urine, when it happens and then stops and then happens again, can be a symptom of a very serious condition, including cancer. There is no pain in the initial stages of many urinary cancers. Follow these instructions at home: Medicines ??? Take jwvb-cvb-jtogavn and prescription medicines only as told by your health care provider. ??? If you were prescribed an antibiotic medicine, take it as told by your health care provider. Donot stop taking the antibiotic even if you [...] kidney stone, follow your health care provider's instructionsabout straining your urine to catch the stone. [...] Tell your health care provider about any changesor any new symptoms. ??? It is up [...] the blood stops without treatment. ??? Take hncd-kpa-tzxrqmv and prescription medicines only as told by your health care provider. ??? Drink enough fluid to keep your urine pale yellow. This information is not intended to replace advice given to you by your health care provider. Make sure you discuss any questions you have with your health care provider. Document Revised: 10/20/2020 Document Reviewed: 10/20/2020 [employer] Patient Education ? 2023 [employer] 05-08-2024 Evaluation note* Diagnosis Onset Date Resolution Status Admit Date Dysuria acuteMarch 2024 1:32pm [facility] Work Phone: 1(291) 262-607303-06-2025 Evaluation note* Diagnosis Onset Date Resolution Status Admit Date Dysuria acuteMarch 2024 1:32pmChronic systolic heart failureacuteMarch 2024 11:25amHematuriaacuteMarch 2024 11:25amHTN (hypertension)acuteMarch 2024 11:25amWeight gainacuteMarch 2024 11:25am [facility] Work Phone: 1(101) 313-929702-12-2025 Telephone encounter Note* Telephone Encounter - Tamie Enrique MA - 04/16/2024 1:00 PM EST Last ov 06/19/23 recall 6 mo. Message sent to scheduling to schedule recall [facility] Work Phone: 1(166) 175-709702-12-2025 Miscellaneous Notes* Telephone Encounter - Tamie Enrique MA - 04/16/2024 1:00 PM EST Last ov 06/19/23 recall 6 mo. Message sent to scheduling to schedule recall documented in this [id number] NotePatient seen today with Bryanna Moya. Patient's spinal cord stimulator was interrogated and found to be covering her back and both lower extremities. At this time adjusted patient's stimulator settings and we will utilize these new settings for the next 7 days to see if her pain improves. The patient is to call our office if she does not see improvement in pain or pain or symptoms should worsen. Call with any questions. AUTHENTICATED BY CAROLINE CARRION, ON 03/14/2024 16:52:05[facility] 03-14-2024 History of Present illness Narrative* Caroline Carrion PA-C - 03/14/2024 4:49 PM EST Patient seen today with Bryanna Moya. Patient's spinal cord stimulator was interrogated and found to be covering her back and both lower extremities. At this time independent sales representative adjusted patient's stimulator settings and we will utilize these new settings for the next 7 days to see if her pain improves. The patient is to call our office if she does not see improvement in pain or pain or symptoms should worsen. Call with any questions. documented in this [id number] NotePatient called 03/11/24 and I relayed to [...] will relay this information to [employer] independent sales representative, and we will get the patient scheduled for spinal cord stimulator interrogation and if needed reprogramming to see if we can capture her pain. Asked patient to notify me if she does not hear from independent sales representative by the end of the week. AUTHENTICATED BY CAROLINE CARRION, ON 03/12/2024 16:17:[address] [place] [address] Ambulatory 03-12-2024 History of Present illness Narrative* [...] will relay this information to [employer] , and we will get the patient scheduled for spinal cord stimulator interrogation and if needed reprogramming to see if we can capture her pain. Asked patient to notify me if she does not hear from by the end of the week. documented in this [id number] NoteNeurosurgery Progress Note Assessment/Plan: 59 yo female [...] Will send in one time course of [place] for pain control, side effects discussed. Utilize [...] pain, fall/injury, weakness, incontinence. Caroline Carrion PA-C [facility] Neurosurgery Subjective: Patient presents for pain that [...] off. She had left over tizanidine and [place] she took which helped control the pain. She has enough tizanidine but request refill of [place]. She states currently she has aching dull [...] pain. Negative on left. AUTHENTICATED BY CAROLINE CARRION ON 03/08/2024 00:10:03[facility] 12-20-2023 History of Present illness Narrative* Giovani Maria, DOTM - 12/20/2023 10:30 AM EDT Patient: Verito [...] Patient may continue with conservative treatments including snbr-ido-eodridj anti- inflammatories and other treatments suggested today. Patient may want to be s cheduled for surgical intervention in the near future. May consider left plantar fasciotomy in the future if condition worsens Patient is to continue with stretching excercizes daily with patient to continue with night stretching splint or manual stretching. Giovani Maria DPM documented in this encounterRay County Memorial [id number] History of Present illness Narrative* Giovani Maria [...] Patient may continue with conservative treatments including gzhq-uow-drnymmc anti- inflammatories and other treatments suggested today. [...] stretching. Giovani Maria DPM documented in this encounterRay County Memorial [id number] History of Present illness Narrative* Giovani Maria [...] stretching. Giovani Maria DPM documented in this encounterRay County Memorial [id number] History of Present illness Narrative* Giovani Maria [...] stretching. Giovani Maria DPM documented in this encounterRay County Memorial HospitalJeyyshrxid16-69-2721 Telephone encounter Note* Telephone Encounter - Chely So MA - 10/17/2023 2:00 PM EDT Pt has switched pharmacy and was last seen in 06/[address] Armand waddell appropriate. [id number] Miscellaneous Notes* Telephone Encounter - Chely So MA - 10/17/2023 2:00 PM EDT Pt has switched pharmacy and was last seen in 06/[address] Armand waddell appropriate. documented in this [id number] Telephone encounter Note* Telephone Encounter - Erika Lozano MA - 06/21/2023 10:17 AM EDT Pt would like meds sent to mail order. [id number] Miscellaneous Notes* Telephone Encounter - Erika Lozano MA - 06/21/2023 10:17 AM EDT Pt would like meds sent to mail order. documented in this [id number] History of Present illness Narrative* Vijay Acuna MD - 06/19/2023 1:51 PM EDT Cardiology Clinic Visit Heart & Vascular [facility] 06/19/2023 Vijay Acuna MD [address] [facility] [address] Patient: Verito Brennan Date of : [...] 6 months (around 12/19/2023). Vijay Acuna MD [facility] Non-Invasive Cardiology [facility] Heart and Vascular Chief Complaint: HF Subjective [...] Angiogram; Surgeon: Rios Verduzco MD; Location: [facility]BR[facility] CUSTOMER RESPONSE REPRESENTATIVE; Service: Cardiovascular CARDIAC CATHETERIZATION N/A 08/23/2021 Procedure: Left Ventriculogram; Surgeon: Rios Verduzco MD; Location: [facility] CUSTOMER RESPONSE REPRESENTATIVE; Service: Cardiovascular CERVICAL ABLATION W/ LASER 1997 HC LEFT HEART CATH N/A 08/23/2021 Procedure: Left Heart Cath; Surgeon: Rios Verduzco MD; Location: [facility] CUSTOMER RESPONSE REPRESENTATIVE; Service: Cardiovascular HEMORRHOIDECTOMY 1997 LAMINECTOMY DECOMPRESSION MINIMALLY [...] hours . [DISCONTINUED] naloxone (NARCAN) 4 mg/actuation [place] Administer 1 spray into one nostril for [...] right ventricle systolic pressure is 38 mmHg. [facility] 08/23/21 Left Main The vessel is moderate [...] 08/03/2021 HDL 56 08/03/2021 documented in this [id number] Instructions* Patient Instructions* Meir Huffman RN - 06/19/2023 8:22 AM EDT Decrease your metoprolol to 50 mg once a day How to contact your Care Team: Provider: Vijay Acuna MD Nurse: Meir Huffman RN In case of an emergency please call 911. REFILLS: When in need for refills please call your care team or the office at [phone]. Please include medication name, pharmacy name, and specify 30-day or 90-day supply. Please check with your pharmacy within 24 hours of request for your refill. You must follow up as directed to continue current refills. Thank you documented in this [id number] Telephone encounter Note* Telephone Encounter - Meir Huffman RN - 05/31/2023 2:39 PM EDT Patient's insurance changed and now needs script sent to [facility] in [place], [place]. #90/3 sent for lipitor 20 mg daily, entresto 24-26 mg BID, and metoprolol 100 mg daily. Patient is scheduled for follow up with Dr. Acuna on 06/18 [id number] Miscellaneous Notes* Telephone Encounter - Meir Huffman RN - 05/31/2023 2:39 PM EDT Patient's insurance changed and now needs script sent to [facility] in [place], [place]. #90/3 sent for lipitor 20 mg daily, entresto 24-26 mg BID, and metoprolol 100 mg daily. Patient is scheduled for follow up with Dr. Acuna on 06/18 documented in this [id number] Telephone encounter Note* Telephone Encounter - Erika Lozano MA - 05/16/2023 4:05 PM EDT Pt was last seem by Dr. Acuna in 06/2022, w/ upcoming ov in 06/2023. Refill appropriate. Routed to Dr. Saldana in Dr. Acuna's absence. [id number] Miscellaneous Notes* Telephone Encounter - Erika Lozano MA - 05/16/2023 4:05 PM EDT Pt was last seem by Dr. Acuna in 06/2022, w/ upcoming ov in 06/2023. Refill appropriate. Routed to Dr. Saldana in Dr. Acuna's absence. documented in this [id number] Evaluation note* Encounter Date Diagnosis Assessment Notes Treatment Notes Treatment Clinical Notes Feb, Bronchitis (ICD-10 - J40) Patient is advised to stay well hydrated. Finish the full antibiotic until gone. Patient is advisedto add a probiotic to their diet such as yogurt. Follow up to let us know if symptoms have improved [facility] Other [id number] History of Present illness Narrative* Caroline Carrion PA-C - 02/06/2023 3:15 PM EST Patients EMG from today shows mild left carpal tunnel syndrome. I called, left voicemail. If she isinterested in pursuing treatment options can try corticosteroid injections which can be done at orthopedics. If she is interested order can be placed. Left return number. documented in this [id number] History of Present illness Narrative* Vikram Fowler MD - 02/06/2023 2:16 PM EST Images from the original note were not included. [facility] - Neurology [address], [facility] 2nd [place] [address] Nerve Conduction & EMG Report Patient: Verito [...] Neurophysiology, Neurology, Vascular Neurology and Sleep Medicine [facility], [place], [place] [phone] Motor NCS Nerve / Sites Muscle Latency [...] Normal Normal Normal Normal documented in this [id number] Evaluation note* Encounter Date Diagnosis Assessment Notes Treatment Notes Treatment Clinical Notes Jan, Lumbar degenerative disc disease (ICD-10 - M51.36) With upcoming tests and her present symptoms, will extend her time off work to 04/15/23 and RTW on 04/16. This was discussed w pt and she will continue to followup w her specialists. Jan,Lumbosacral spondylosis (ICD-10 - M47.817)as above Jan,Neuropathic pain of left hand (ICD-10 - M79.2)as above [facility] Other [id number] History of Present illness Narrative* Caroline Carrion [...] of the diagnostic tests. documented in this [id number] History of Present illness Narrative* Caroline Carrion [...] today with this information. documented in this [id number] Evaluation note* Encounter Date Diagnosis Assessment Notes Treatment Notes Treatment Clinical Notes Jan, Bronchitis (ICD-10 - J40) Bronchitis suspected due to wheezes, chest tightness, cough and/or impaired air movement. Medication prescribed. Avoid extreme heat and cold as this may exacerbate inflammation of airways. If wheezing, chest tightness and/or SOB occurs, go to ER. [facility] Other 10-11-2023 Evaluation note* Encounter Date Diagnosis Assessment Notes Treatment Notes Treatment Clinical Notes Dec, Lumbar degenerative disc disease (ICD-10 - M51.36) Discussed needs for work paperwork. Off work through 02/01. Continued followup w her Neurosurgeon Dec,Lumbosacral spondylosis (ICD-10 - M47.817) Dec,Neuropathic pain of left hand (ICD-10 - M79.2)Continued followup w her neurosurgeon; MRI pending [facility] Other 10-11-2023 History of Present illness Narrative* [...] review them in office. documented in this [id number] Instructions* Patient Instructions* Caroline Carrion PA-C - [...] and uploaded to the media tab in [employer] with patient's verbal consent. Given the patient's [...] any question or concern. documented in this [id number] History of Present illness Narrative* Caroline Carrion [...] primary care provider next steps of care ifshe is considering a long-term disability as our [...] and uploaded to the media tab in [employer] with patient's verbal consent. Given the patient's [...] any question or concern. Caroline Carrion PA-C [facility] Neurosurgery Subjective: Verito returns for follow-up today. [...] 5 Triceps 5 5 Deltoid 5 5 Paste Up Copy Camera Operator 5 5 Hand Intrinsics 5 5 Hip [...] Romberg no pronator drift. documented in this [id number] History of Present illness Narrative* Meir Huffman RN - 11/17/2022 9:21 AM EDT PA for Entresto 24-26 mg submitted thru CoverMyMeds. Prior Authorization is not required for this medication dosage form and strength at the quantity and days supply requested. The request for the medication has been previously approved and a current authorization exists. The requested medication is covered under authorization [id number] which is valid until 11/09/2023. documented in this [id number] History of Present illness Narrative* Caroline Carrion PA-C - 11/16/2022 10:13 AM EDT I called patient to discuss her right flank IPG incision site, she uploaded image of site today on [employer]. Relayed to patient it appears her incision [...] tizanidine for muscle spasm, I gave her [facility] [place] so she can inquire on status of her rollator. She currently is using a family members walker which is likely not fitted correctly possible causing back pain due to poor posture. If anynew redness, heat, swelling, discharge, dehiscence, or new/worsening symptom in the interim notify neurosurgery/go to ED. documented in this [id number] Instructions* Patient Instructions* Caroline Crarion PA-C - 11/08/2022 6:23 PM EDT -Her [...] of her back and upload it to [facility] in 1 week for my review to ensure that her IPG site continues to heal appropriately. I still believe that her indentation in her IPG site incision site was due to extruded suture material that was accidentally scraped off by patient. There is no signs of infection. There is no signs of dehiscence. I uploaded a picture of incision site to [facility] with her verbal consent. I would [...] reevaluation, sooner if needed. documented in this [id number] History of Present illness Narrative* Caroline Carrion [...] of her back and upload it to [facility] in 1 week for my review to ensure that her IPG site continues to heal appropriately. I still believe that her indentation in her IPG site incision site was due to extruded suture material that was accidentally scraped off by patient. There is no signs of infection. There is no signs of dehiscence. I uploaded a picture of incision site to [facility] with her verbal consent. I would [...] No abnormalities in gait documented in this [id number] Instructions* Patient Instructions* Caroline Carrion PA-C - 11/04/2022 1:14 PM EDT -No new myelopathic deficit reported her back pain is improved although cause of this improvement is unclear. She had continued back pain with her spinal cord stimulator turned off and [employer] independent sales representative called patient today and told her to [...] concerns in the interim. documented in this [id number] History of Present illness Narrative* Caroline Carrion [...] spinal cord stimulator turned off and [employer] independent sales representative called patient today and told her to [...] concerns in the interim. Caroline Carrion PA-C [facility] Subjective: I called patient this afternoon [...] falls or injuries. She is yet to black pickler her antibiotics. She plans to pick them up today. She had her friend look at her back earlier today and states it appears the denuded scab from her IPG site is scabbing over once again there is no signs of dehiscence or infection per patient. Objective: This was a telehealth visit over telephone. No objective data obtained during visit. documented in this [id number] History of Present illness Narrative* Caroline Carrion [...] understanding, thankful for call. documented in this [id number] Evaluation note* Encounter Date Diagnosis Assessment Notes Treatment Notes Treatment Clinical Notes Oct, Lumbar degenerative disc disease (ICD-10 - M51.36) Will extend time off work through 12/17. Has upcoming appts with her neurosurgeon and the rep from the [employer]. Anticipate improvement at that time. She presently has difficulty walking distances, twisting and bending. Oct,Lumbosacral spondylosis (ICD-10 - M47.817)As above. Oct,nxiety (ICD-10 - F41.9)Chronic problem and stable - requests refill to use prn. [employer] Other 08-30-2023 Instructions* Patient Instructions* Caroline Carrion [...] new or worsening pain, numbness, weakness, incontinence. Vamp Stitcher recommended patient turn off her spinal cord stimulator until Sunday and on Anthony determine if her pain is being caused by her stimulator. Patient will have her spinal cord stimulator off until then and spinal cord s timulator independent sales representative and myself will call patient on Sunday to discuss how she is doing and will further make plan at that point in time I also recommended to the patient to upload an image of her incision site to [facility] next Wednesday 11/08 to evaluate her incision sites. I recommended avoiding submersion of her incision sites in water at this time. I recommended her to keep her incision sites clean and dry. documented in this [id number] History of Present illness Narrative* Caroline Carrion [...] new or worsening pain, numbness, weakness, incontinence. Vamp Stitcher recommended patient turn off her spinal cord stimulator until Sunday and on Sunday determine if her pain is being caused by her stimulator. Patient will have her spinal cord stimulator off until then and spinal cord s timulator independent sales representative and myself will call patient on Sunday to discuss how she is doing and will further make plan at that point in time I also recommended to the patient to upload an image of her incision site to [facility] next Wednesday 11/08 to evaluate her incision sites. I recommended avoiding submersion of her incision sites in water at this time. I recommended her to keep her incision sites clean and dry. Caroline Carrion PA-C [facility] Neurosurgery Subjective: Patient presents for postoperative visit [...] came off when she did so. Bryanna independent sales representative is here per patient request to adjust [...] incision sites of her back uploaded to [facility] with patient verbal consent. Skin: Warm and dry and intact. MSK: Manual Muscle Testing Muscle Group Right Left Hip Flexion 5 5 Knee Extension 5 5 Knee Flexion 5 5 Dorsiflexion 5 5 Plantar Flexion 5 5 EHL 5 5 Sensation intact light touch and pressure bilateral lower extremities No clonus bilaterally Patellar reflex 2+ bilaterally documented in this [id number] History of Present illness Narrative* Dionna Corrigan, [...] right side of rib cage. - Reports [place] doesn't help much with the pain. Not [...] Anxiety Back pain CHF (congestive heart failure) ([facility]) Hypertension Seasonal allergies Systolic heart failure ([facility]) Physical Exam Constitutional: Appearance: Normal appearance. Eyes: [...] normal. Dionna Corrigan CNP documented in this [id number] Telephone encounter Note* Telephone Encounter - Erika Lozano MA - 10/03/2022 8:11 AM EDT Patient was last seen by Susanne Power in 12/2021. Refill appropriate. [id number] Miscellaneous Notes* Telephone Encounter - Erika Lozano MA - 10/03/2022 8:11 AM EDT Patient was last seen by Susanne Power in 12/2021. Refill appropriate. documented in this [id number] Evaluation note* Encounter Date Diagnosis Assessment Notes Treatment Notes Treatment Clinical Notes Sep, Thoracic spine pain (ICD-10 - M5 4.6) Pt agrees to pain mgmt referral as her friend had a good response to an injection after pain devicewas placed for her. Sep,llergic contact dermatitis due to adhesives (ICD-10 - L23.1)Advised it is safe to use OTC hydrocortisone spray. [employer] Other 07-07-2023 History of Present illness Narrative* Dionna Corrigan, COUNSELOR/ART THERAPIST - 09/08/2022 10:00 AM EDT Subjective Patient [...] tablet, Rfl: 0 naloxone (NARCAN) 4 mg/actuation [place], Administer 1 spray into one nostril for [...] Anxiety Back pain CHF (congestive heart failure) ([facility]) Hypertension Seasonal allergies Systolic heart failure (H[facility]) [...] Neuropathy Dionna Corrigan CNP documented in this [id number] History of Present illness Narrative* Edgar Dhaliwal [...] weeks for provider visit. After discussion with [employer] independent sales representative about her stimulator she is able to be discharged home. Patient had no additional questions but was instructed to call neurosurgery if she has questions. Caroline Carrion PA-C [facility] Neurosurgery Subjective: Pt is a 57 y/o [...] ambulating to restroom. She is waiting for [employer] representativeto discuss SCS with her. Objective: General: Healthy, [...] Patellar reflex 2+ b/l documented in this [id number] Hospital course Narrative* Caroline Carrion PA-C - 08/25/2022 10:44 AM EDT DISCHARGE SUMMARY Patient: Verito Brennan Date of : 1965 Site: [facility] Family Provider: Clair Dahl MD Admit Date: 08/24/2022 [...] She is to be seen by [employer] independent sales representative this morning to discuss how to operate [...] Physician(s) Family Provider: Clair Dahl MD, Address: [address] [place] [address] Follow Up: No follow-up provider specified. Additional Information: Patient instructions, including activity, were given to the patient/family at discharge. Please seethe After Visit Summary in the electronic medical record for details. Time spent on discharge: < 30 minutes Completed by: Caroline Carrion PA-C on 08/25/22, 10:44 AM Associated attestation - Edgar Dhaliwal MD - 08/25/2022 1:30 PM EDT I attest. documented in this [id number] Hospital Note* Hospital Course - Caroline Carrion [...] She is to be seen by [employer] independent sales representative this morning to discuss how to operate [...] incontinence, fever, incisional redness, discharge, or dehiscence. [id number] Miscellaneous Notes* Hospital Course - Caroline Carrion [...] She is to be seen by [employer] independent sales representative this morning to discuss how to operate [...] Goal: Manage acute pain 08/24/20221858 by Twin Akers, DENEEN Outcome: Partially Met 08/24/20221855 by Twin Akers RN Outcome: Partially Met 08/24/2022 175 by Twin Akers, DENEEN Outcome: Not Met Goal: Manage chronic pain 08/24/20221858 by Twin Akers RN Outcome: Partially Met 08/24/20221855 by Twin Akers RN Outcome: Partially Met 08/24/2022 175 by Twin Akers, DENEEN Outcome: Not Met Goal: Reduced pain sensation 08/24/20221858 by Twin Akers, DENEEN Outcome: Partially Met 08/24/20221855 by Twin Akers, DENENE Outcome: Partially Met 08/24/2022 175 by Twin Akers, DENEEN Outcome: Not Met Goal: Achievement of comfort function goal 08/24/20221858 by Twin Akers, DENEEN Outcome: Partially Met 08/24/20221855 by Twin Akers RN Outcome: Partially Met 08/24/2022 175 by Twin Akers RN Outcome: Not Met Problem: Pressure Ulcer - Risk of Goal: Absence of pressure ulcer 08/24/2022 185 by Twin Akers RN Outcome: [...] Met Problem: Pain Goal: Manage acute pain 08/24/2022 185 by Twin Akers RN Outcome: Partially Met 08/24/2022 175 by Twin Akers RN Outcome: Not Met Goal: Manage chronic pain 08/24/2022 185 by Twin Akers RN Outcome: Partially Met 08/24/2022 175 by Twin Akers RN Outcome: Not Met Goal: Reduced pain sensation 08/24/2022 185 by Twin Akers RN Outcome: Partially Met 08/24/2022 175 by Twin Akers RN Outcome: Not Met Goal: Achievement of comfort function goal 08/24/2022 185 by Twin Akers RN Outcome: [...] - 08/24/2022 1:44 PM EDT VERITO BRENNAN [facility] [id number] 1965 DATE 08/24/2022 OPERATIVE REPORT SURGEON EDGAR [...] the patient's successful trial stimulator electrode placement. [place] boots were applied to each of the lead wires and were cinched with 3-0 silk ties. [place] boot tie combination was then secured to [...] headers and the screws torque tightened to maintenance worker's recommended tightness. The system was interrogated by a independent sales representative from [employer] and noted to be functioning normally in [...] condition. EDGAR DHALIWAL MD D 08/24/2022 13:00 [id number] T 08/24/2022 13:38 [facility] * Brief Op Note - Edgar Dhaliwal MD - 08/24/2022 1:05 PM EDT Brief Post Operative Note Patient Name: Verito Brennan : 1965 (57 y.o.) Date of Service: 08/24/2022 [facility]: [id number] Procedure(s): Thoracic 10-11 Laminectomy, Insertion of Permanent Spinal Cord Stimulator Electrodes and Insertion of Right Flank Implantable Pulse Generator. 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 Item Serial No. Naturopath Lot No. LRB No. Used Action HEMOSTAT 4 X 8IN SURGICEL - SN/A HEMOSTAT 4 X 8IN SURGICEL N/A ETHICON [id number] 1 Implanted HEMOSTAT 2 X 4IN SURGICEL FIBRILLAR - SN/A HEMOSTAT 2 X 4IN SURGICEL FIBRILLAR N/A ETHICON [id number] 1 Implanted HEMOSTAT 8 X 12.5CM X 10MM SURGIFOAM GELATIN SPONGE - SN/A HEMOSTAT 8 X 12.5CM X 10MM SURGIFOAM GELATIN SPONGE N/A ETHICON [id number] 1 Implanted KIT 8ML MATRIX HEMOSTATIC W/THROMBIN SURGIFLO - SN/A KIT 8ML MATRIX HEMOSTATIC W/THROMBIN SURGIFLO N/A ETHICON [id number] 1 Implanted GENERATOR NEUROSTIMULATOR IMPLANTABLE XR5 PROCLAIM - [id number] GENERATOR NEUROSTIMULATOR IMPLANTABLE XR[id number] FRANK [place] N/A 1 Implanted LEAD 60CM PENTA - [id number] LEAD 60CM PENTA [id number] ST FRANK SC N/A 1 Implanted Drain(s): * No LDAs found * Wound(s): Wound 08/24/22 Thoracic Spine (Active) Wound Closure Surgical Adhesive 08/08/22 0002 Wound 08/24/22 Flank Right;Posterior;Lower (Active) Wound Closure Surgical Adhesive 08/08/22 0002 Edgar Dhaliwal MD 08/24/2022 1:05 PM documented in this [id number] Consult note* Sulema Aguilera, PT - 08/25/2022 8:12 AM EDT Physical Therapy PHYSICAL THERAPY EVALUATION and TREATMENT NOTE Dx: Failed back syndrome Sx: T10 laminectomy, insertion dorsal permanent paddle spinal cord stimulator electrode, implantation of right flank IPG via separate Incision 6-22-23 PHYSICAL THERAPY EVALUATION Skilled Therapy Needs After [...] Static: Stand by assist, without UE support Candle Wicker - Standing Static: (no device) Standing Balance - Dynamic: Stand by assist, Contact guard assist, without UE support Candle Wicker - Standing Dynamic: (no device) Loss of Balance- Standing Dynamic: (no lob; decreased gait speed without use of device) Bed Mobility Rolling: Stand by assist, Head of bed flat Supine to Sit: Stand by assist, Head of bed flat (via logroll) Sit to Supine: (NT; pt up in chair post PT session) Candle Wicker: (none) Transfers Sit to Stand: Stand by assist, Contact guard assist Bed to Chair: Stand by assist Stand Pivot Transfers: Stand by assist, Contact guard assist Candle Wicker: BUE Gait/Locomotion Gait Assistance: Stand by assist [...] with cande handles) Bathroom Equipment: Toilet seat technology project manager Mobility Equipment: Wheeled walker, Cane Additional Objective Details - Home Living: family lives within close vicinity of patient and willing to assist with pt needs after discharge Prior Level of Function Level of Charles - Transfers/Ambulation/Mobility: Independent with functional transfers, Independent with household ambulation, Independent with community ambulation (with intermittant use of 2ww or cane for ambulation due to pain) Level of Charles - ADLs: Independent Level of Charles - Homemaking: Independent Driving: Patient drives Vocational: (medical leave for last year from [facility]) PHYSICAL THERAPY TREATMENT NOTE Total Treatment [...] Coronary Angiogram; Surgeon: Rios Verduzco MD; Location: [facility] CUSTOMER RESPONSE REPRESENTATIVE; Service: Cardiovascular CARDIAC CATHETERIZATION N/A 08/23/2021 Procedure: Left Ventriculogram; Surgeon: Rios Verduzco MD; Location: [facility] CUSTOMER RESPONSE REPRESENTATIVE; Service: Cardiovascular CERVICAL ABLATION W/ LASER 1997 LEFT HEART CATH N/A 08/23/2021 Procedure: Left Heart Cath; Surgeon: Rios Verduzco MD; Location: [facility] CUSTOMER RESPONSE REPRESENTATIVE; Service: Cardiovascular HEMORRHOIDECTOMY 1997 LAMINECTOMY DECOMPRESSION MINIMALLY [...] hospital or completion of Physical Therapy Plan. [id number] Consult note* Sulema Aguilera, PT - 08/25/2022 [...] Static: Stand by assist, without UE support Candle Wicker - Standing Static: (no device) Standing Balance - Dynamic: Stand by assist, Contact guard assist, without UE support Candle Wicker - Standing Dynamic: (no device) Loss of Balance- Standing Dynamic: (no lob; decreased gait speed without use of device) Bed Mobility Rolling: Stand by assist, Head of bed flat Supine to Sit: Stand by assist, Head of bed flat (via logroll) Sit to Supine: (NT; pt up in chair post PT session) Candle Wicker: (none) Transfers Sit to Stand: Stand by assist, Contact guard assist Bed to Chair: Stand by assist Stand Pivot Transfers: Stand by assist, Contact guard assist Candle Wicker: BUE Gait/Locomotion Gait Assistance: Stand by assist [...] with cande handles) Bathroom Equipment: Toilet seat technology project manager Mobility Equipment: Wheeled walker, Cane Additional Objective Details - Home Living: family lives within close vicinity of patient and willing to assist with pt needs after discharge Prior Level of Function Level of Charles - Transfers/Ambulation/Mobility: Independent with functional transfers, Independent with household ambulation, Independent with community ambulation (with intermittant use of 2ww or cane for ambulation due to pain) Level of Charles - ADLs: Independent Level of Charles - Homemaking: Independent Driving: Patient drives Vocational: (medical leave for last year from [employer]) PHYSICAL THERAPY TREATMENT NOTE Total Treatment Time [...] Coronary Angiogram; Surgeon: Rios Verduzco MD; Location: [facility] CUSTOMER RESPONSE REPRESENTATIVE; Service: Cardiovascular CARDIAC CATHETERIZATION N/A 08/23/2021 Procedure: Left Ventriculogram; Surgeon: Rios Verduzco MD; Location: [facility] CUSTOMER RESPONSE REPRESENTATIVE; Service: Cardiovascular CERVICAL ABLATION W/ LASER 1997 LEFT HEART CATH N/A 08/23/2021 Procedure: Left Heart Cath; Surgeon: Rios Verduzco MD; Location: [facility] CUSTOMER RESPONSE REPRESENTATIVE; Service: Cardiovascular HEMORRHOIDECTOMY 1997 LAMINECTOMY DECOMPRESSION MINIMALLY [...] of Physical Therapy Plan. documented in this [id number] Note* Plan of Care - Sulema Aguilera [...] - 08/25/2022 1:30 PM EDT I attest. [id number] Note* Plan of Care - Twin Akers [...] by Twin Akers RN Outcome: Not Met [id number] Note* Plan of Care - Twin Akers [...] Outcome: Not Met Goal: Knowledge of Enviroment 08/24/2022 185 by Twin Akers RN Outcome: Partially Met 08/24/2022 175 by Twin Akers RN Outcome: Not Met Problem: Pain Goal: Manage acute pain 08/24/2022 185 by Twin Akers RN Outcome: Partially Met 08/24/2022 175 by Twin Akers RN Outcome: Not Met Goal: Manage chronic pain 08/24/2022 185 by Twin Akers RN Outcome: Partially Met 08/24/2022 175 by Twin Akers RN Outcome: Not Met Goal: Reduced pain sensation 08/24/2022 185 by Twin Akers RN Outcome: [...] by Twin Akers RN Outcome: Not Met [id number] Note* Plan of Care - Twin Akers [...] Absence of pressure ulcer Outcome: Not Met [id number] Hospital Discharge instructions* Discharge Instructions* Estefania Malohtra RN - 08/24/2022 2:18 PM EDT GENERAL POST-OPERATIVE PATIENT INSTRUCTIONS ANESTHESIA PRECAUTIONS: A responsible adult must stay with you for at least 24 hours after surgery. You may feel light headed,, dizzy, or nauseated during this time. Do not operate a vehicle (car, bike, motorcycle, hotel security officer) machinery or power tools. Do not make [...] to call your physician or the hospital homogenizer operator if you have any questions, and they will be glad to assist you. documented in this [id number] Note* Op Note - Edgar Dhaliwal MD - 08/24/2022 1:44 PM EDT VERITO BRENNAN [facility] [id number] 1965 DATE 08/24/2022 OPERATIVE REPORT SURGEON EDGAR [...] the patient's successful trial stimulator electrode placement. [place] boots were applied to each of the lead wires and were cinched with 3-0 silk ties. [place] boot tie combination was then secured to [...] headers and the screws torque tightened to maintenance worker's recommended tightness. The system was interrogated by a independent sales representative from [employer] and noted to be functioning normally in [...] condition. EDGAR DHALIWAL MD D 08/24/2022 13:00 [id number] T 08/24/2022 13:38 [facility] [id number] Note* Brief Op Note - Edgar Dhaliwal MD - 08/24/2022 1:05 PM EDT Brief Post Operative Note Patient Name: Verito Brennan : 1965 (57 y.o.) Date of Service: 08/24/2022 [facility]: [id number] Procedure(s): Thoracic 10-11 Laminectomy, Insertion of Permanent Spinal Cord Stimulator Electrodes and Insertion of Right Flank Implantable Pulse Generator. 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 Item Serial No. Naturopath Lot No. LRB No. Used Action HEMOSTAT 4 X 8IN SURGICEL - SN/A HEMOSTAT 4 X 8IN SURGICEL N/A ETHICON [id number] Implanted HEMOSTAT 2 X 4IN SURGICEL FIBRILLAR - SN/A HEMOSTAT 2 X 4IN SURGICEL FIBRILLAR N/A ETHICON [id number] 1 Implanted HEMOSTAT 8 X 12.5CM X 10MM SURGIFOAM GELATIN SPONGE - SN/A HEMOSTAT 8 X 12.5CM X 10MM SURGIFOAM GELATIN SPONGE N/A ETHICON [id number] 1 Implanted KIT 8ML MATRIX HEMOSTATIC W/THROMBIN SURGIFLO - SN/A KIT 8ML MATRIX HEMOSTATIC W/THROMBIN SURGIFLO N/A ETHICON [id number] 1 Implanted GENERATOR NEUROSTIMULATOR IMPLANTABLE XR5 PROCLAIM - [id number] GENERATOR NEUROSTIMULATOR IMPLANTABLE XR5 PROCLAIM [id number] [place] FRANK [place] N/A 1 Implanted LEAD 60CM PENTA - [id number] LEAD 60CM PENTA [id number] [facility] FRANK SC N/A 1 Implanted Drain(s): * No LDAs found * Wound(s): Wound 08/24/22 Thoracic Spine (Active) Wound Closure Surgical Adhesive 08/08/22 0002 Wound 08/24/22 Flank Right;Posterior;Lower (Active) Wound Closure Surgical Adhesive 08/08/22 0002 Edgar Dhaliwal MD 08/24/2022 1:05 PM [id number] Attending History and physical note* Edgar Dhaliwal MD - 08/24/2022 10:29 AM EDT INTERVAL HISTORY AND PHYSICAL Patient Name: Verito Brennan Admit Date: [id number] MR #: [id number] : 1965 The H&P has been reviewed [...] proceed. Informed consent obtained. Edgar Dhaliwal MD [id number] History and physical note* Edgar Dhaliwal MD - 08/24/2022 10:29 AM EDT INTERVAL HISTORY AND PHYSICAL Patient Name: Verito Brennan Admit Date: [id number] MR #: [id number] : 1965 The H&P has been reviewed [...] obtained. Edgar Dhaliwal MD documented in this [id number] History and physical note* Edgar Dhaliwal MD [...] she wishes to proceed. Informed consent obtained. Edgra Dhaliwal MD [id number] History of Present illness Narrative* Dionna Corrigan [...] for trial SCS lead pull today. [employer] independent sales representative, Dayana present. Pt states 70% reduction in [...] concerning signs or symptoms. documented in this [id number] Instructions* Patient Instructions* Dionna Corrigan CNP - 08/04/2022 11:03 AM EDT Keep insertion sites clean and dry. If any redness, swelling, warmth, or drainage occur, please notify the office. * Attachments The following attachments cannot be sent through Care Everywhere. * Spinal Cord Stimulation: General Info (Tanzanian) documented in this [id number] History of Present illness Narrative* Delmy Goldman RN - 08/02/2022 3:13 PM EDT Patient presents today for trial SCS dressing check and to meet with Dayana from [employer]. Dressing dry,intact, occlusive. No drainage noted. Patient states feeling much better, able to ambulate further.Still with soreness to right side but left is much better. Dayana here to program/adjust stimulator. Denies any other complaints. documented in this [id number] Nurse Note* Eunice Domínguez RN - 08/01/2022 10:[address] [facility] rep at [facility] to set up SCS with patient [id number] Nurse Note* Eunice Domínguez RN - 08/01/2022 10:[address] [facility] rep at [facility] to set up SCS with patient documented in this [id number] Hospital Discharge instructions * Discharge Instructions* Eunice Domínguez RN - 08/01/2022 10:14 AM EDT GENERAL POST-OPERATIVE PATIENT INSTRUCTIONS ANESTHESIA PRECAUTIONS: A responsible adult must stay with you for at least 24 hours after surgery. You may feel light headed,, dizzy, or nauseated during this time. Do not operate a vehicle (car, bike, motorcycle, hotel security officer) machinery or power tools. Do not make [...] to call your physician or the hospital homogenizer operator if you have any questions, and they will be glad to assist you. * Attachments The following attachments cannot be sent through Care Everywhere. * Spinal Cord Stimulation: General Info (Tanzanian) documented in this [id number] Hospital course Narrative* Edgar Dhaliwal MD - 08/01/2022 9:54 AM EDT DISCHARGE SUMMARY Patient: Verito Brennan Date of : 1965 Site: [facility] Family Provider: Clair Dahl MD Admit Date: [...] Physician(s) Family Provider: Clair Dahl MD, Address: [address] [place] [address] Follow Up: No follow-up provider specified. 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 Intra and immediate post-operative complications: None Type of anesthesia used: General Estimated blood loss: Minimal Estimated urine output: Refer to surgical log Specimen(s): * No specimens in log * Implant(s): Implant Name Type Inv. Item Serial No. Naturopath Lot No. LRB No. Used Action LEAD 60CM PERC OCTRODE TRIAL - [id number] LEAD 60CM PERC OCTRODE TRIAL [id number] ST FRANK SC NA N/A 1 Implanted LEAD 60CM PERC OCTRODE TRIAL - [id number] LEAD 60CM PERC OCTRODE TRIAL [id number] ST FRANK SC NA N/A 1 Implanted Drain(s): * No LDAs found * Wound(s): Wound 08/01/22 1-2 Incision Thoracic Spine (Active) Wound Closure Surgical Adhesive;Steri-strip 06/30/22 0004 Edgar Dhaliwal MD 08/01/2022 9:51 AM [id number] Miscellaneous Notes* Brief Op Note - Edgar Dhaliwal MD - 08/01/2022 9:51 AM EDT Brief Post Operative Note Patient Name: Verito Brennan : 1965 (57 y.o.) Date of Service: 08/01/2022 CSN: [id number] Procedure(s): Bilateral Insertion Trial Spinal Cord Stimulator via Fluoroscopic T12-L2 Approach 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 Intra and immediate post-operative complications: None Type of anesthesia used: General Estimated blood loss: Minimal Estimated urine output: Refer to surgical log Specimen(s): * No specimens in log * Implant(s): Implant Name Type Inv. Item Serial No. Naturopath Lot No. LRB No. Used Action LEAD 60CM PERC OCTRODE TRIAL - [id number] LEAD 60CM PERC OCTRODE TRIAL [id number] ST FRANK SC NA N/A 1 Implanted LEAD 60CM PERC OCTRODE TRIAL - [id number] LEAD 60CM PERC OCTRODE TRIAL [id number] ST FRANK SC NA N/A 1 Implanted Drain(s): * No LDAs found * Wound(s): Wound 08/01/22 1-2 Incision Thoracic Spine (Active) Wound Closure Surgical Adhesive;Steri-strip 06/30/22 0004 Edgar Dhaliwal MD 08/01/2022 9:51 AM * Op Note - Edgar Dhaliwal MD - 08/01/2022 9:28 AM EDT VERITO BRENNAN CSN [id number] 1965 DATE 08/01/2022 OPERATIVE REPORT SURGEON EDAGR DHALIWAL MD PREOPERATIVE DIAGNOSIS Failed back syndrome [...] condition. EDGAR DHALIWAL MD D 08/01/2022 09:47 [id number] T 08/01/2022 10:08 [facility] documented in this [id number] Note* Op Note - Edgar Dhaliwal MD - 08/01/2022 9:28 AM EDT VERITO BRENNAN [facility] [id number] 1965 DATE 08/01/2022 OPERATIVE REPORT SURGEON EDGAR [...] condition. EDGAR DHALIWAL MD D 08/01/2022 09:47 [id number] T 08/01/2022 10:08 [facility] [id number] Attending History and physical note* Edgar Dhaliwal MD - 08/01/2022 8:52 AM EDT INTERVAL HISTORY AND PHYSICAL Patient Name: Verito Brennan Admit Date: [id number] MR #: [id number] : 1965 The H&P has been reviewed [...] proceed. Informed consent obtained. Edgar Dhaliwal MD [id number] History and physical note* Edgar Dhaliwal MD - 08/01/2022 8:52 AM EDT INTERVAL HISTORY AND PHYSICAL Patient Name: Verito Brennan Admit Date: [id number] MR #: [id number] : 1965 The H&P has been reviewed [...] obtained. Edgar Dhaliwal MD documented in this [id number] History and physical note* Edgar Dhaliwal MD [...] hypertension ischemic heart disease. Medications reviewed in MAR. Allergies to penicillin and prednisone. Family medical [...] proceed. Informed consent obtained. Edgar Dhaliwal MD [id number] Evaluation note* Encounter Date Diagnosis Assessment Notes Treatment Notes Treatment Clinical Notes July, Lumbosacral spondylosis (ICD-10 - M47.817) >20 min discussion of her treatment plan through neurosurgery in [place]. Considering having another procedure. She notes problems with her daily activities and we discussed her questions of return to work. Completing disability forms. [employer] Other 04-26-2023 History of Present illness Narrative* [...] obtained. Edgar Dhaliwal MD documented in this [id number] History of Present illness Narrative* Vijay Acuna MD - 06/05/2022 2:22 PM EDT Cardiology Clinic Visit Heart & Vascular [facility] 06/05/2022 Vijay Acuna MD [address] [place] [phone] Patient: Verito Brennan Date of : 1965 [...] 1 year (around 06/06/2023). Vijay Acuna MD [facility] Non-Invasive Cardiology [facility] Heart and Vascular Chief Complaint: HF Subjective [...] Coronary Angiogram; Surgeon: Rios Verduzco MD; Location: [facility] CUSTOMER RESPONSE REPRESENTATIVE; Service: Cardiovascular CARDIAC CATHETERIZATION N/A 08/23/2021 Procedure: Left Ventriculogram; Surgeon: Rios Verduzco MD; Location: [facility] CUSTOMER RESPONSE REPRESENTATIVE; Service: Cardiovascular CERVICAL ABLATION W/ LASER 1997 HC LEFT HEART CATH N/A 08/23/2021 Procedure: Left Heart Cath; Surgeon: Rios Verduzco MD; Location: [facility] CUSTOMER RESPONSE REPRESENTATIVE; Service: Cardiovascular HEMORRHOIDECTOMY 1997 LAMINECTOMY DECOMPRESSION MINIMALLY [...] right ventricle systolic pressure is 38 mmHg. [facility] 07/22/21 Summary 1. Abnormal pharmacologic stress nuclear [...] 08/03/2021 HDL 56 08/03/2021 documented in this [id number] History of Present illness Narrative* Edgar Dhaliwal [...] flexion-extension view. Repeat MRI on 05/10/2022 from [facility] demonstrates no evidence of recurrent disc herniation. [...] placed on a steroid Dosepak by her him specialists but this still has notreally changed her [...] of the scoliosis could be the primary trencher driver of her axial lumbar pain. She may very well be a candidate for techniques such as neuromodulation, or alternatively a open reduction internal fixation scoliosis deformity correction surgery. I will order a scoliosis series first to better understand her overall curvature, and see her back once this has been completed. Edgar Dhaliwal MD documented in this [id number] History of Present illness Narrative* Erika Louis [...] symptomatology - Nursing notes reviewed BARTOLOME Lagunas, [facility] Neurosurgery Subjective: The patient states that she [...] the room without difficulties. documented in this [id number] Telephone encounter Note* Telephone Encounter - Ivonne Almanza MA - 04/17/2022 9:39 AM EST Pt. called in requesting refills on Metoprolol to be sent to [facility] in [place]. Last OV 11/09/21. Refills appropriate. [id number] Miscellaneous Notes* Telephone Encounter - Ivonne Almanza MA - 04/17/2022 9:39 AM EST Pt. called in requesting refills on Metoprolol to be sent to [facility] in [place]. Last OV 11/09/21. Refills appropriate. documented in this [id number] NotePROCEDURE: XR FOOT LT MIN 3 VIEWS COMPARISON: None. HISTORY: Pain in left foot FINDINGS: BONES:No acute fracture or dislocation. Minimal enthesopathic spurring of the calcaneus at the Achilles and plantar insertions. Minimal degenerative changes with SOFT TISSUES:Negative. No visible soft tissue swelling. EFFUSION:None visible. OTHER: Negative. IMPRESSION: Minimal degenerative changes Electronically authenticated by: ALONSO DUBOIS Date: 2022-03-23 07:15[facility]01-03-2023 Evaluation note* Encounter Date Diagnosis Assessment Notes Treatment Notes Treatment Clinical Notes Mar, Lumbar degenerative disc disease (ICD-10 - M51.36) pain is unchanged and unfortunately no improvement since lumbar surgery. she is starting PT on 03/08 and is hopeful to improve for work AND her quality of life. Mar,djustment insomnia (ICD-10 - F51.02)symptoms have worsened due to stress of recent break in [place], hronic pain (ICD-10 - G89.29) Mar,lantar fasciitis, left (ICD-10 - M72.2)new problem, ?relation to back surgery. agrees to referral [employer] Other 12-29-2022 History of Present illness Narrative* [...] patient would like to do PT in [place] Incision is well healed at this time; therefore, if deemed appropriate by PT, patient may participate in aquatic therapy - Will plan for follow-up in 6-8 weeks - If inadequate relief with therapy, may consider additional imaging vs injections - Nursing notes reviewed BARTOLOME Lagunas, [facility] Neurosurgery Subjective: The patient states that [...] the referral today and verbalized to the [facility] to send it to [place]. Objective: PACU Vitals 03/02/22 1402 BP: 115/77 [...] the room without difficulties. documented in this [id number] History of Present illness Narrative* Delmy Goldman [...] any changes or concerns. documented in this [id number] History of Present illness Narrative* Erika Kim Louis, PA-C - 01/25/2022 10:56 AM EST Neurosurgery [...] - Nursing notes reviewed BARTOLOME Lagunas, [facility] Subjective: The patient states that she [...] difficulties; slow to stand. documented in this [id number] History of Present illness Narrative* Delmy Goldman [...] any changes or drainage. documented in this [id number] Miscellaneous Notes* Op Note - Edgar Dhaliwal MD - 01/13/2022 12:21 PM EST VERITO BRENNAN CSN [id number] 1965 DATE 01/13/2022 OPERATIVE REPORT SURGEON EDGAR [...] 50 mm x 22 mm minimally invasive [place] tube was then docked at the right L2-L3 interlaminar area. Fluoroscopy was then brought in and used to confirm the location of the tube dissector and [place] dissector spanning the right L2-L3 disk space. [...] posterior longitudinal ligament. Under cover of a [place] 4 root retractor, the L3 root and [...] stable condition. MD Charmaine FUNK 01/13/2022 10:25 [id number] T 01/13/2022 12:29 [facility] * Brief Op Note - Edgar Dhaliwal MD - 01/13/2022 10:35 AM EST Brief Post Operative Note Patient Name: Verito Brennan : 1965 (56 y.o.) Date of Service: 01/13/2022 [facility]: [id number] Procedure(s): Right L2-3 Minimally Invasive Hemilaminectomy, Foraminotomy, and Discectomy Pre-Operative Diagnoses: * Lumbar disc herniation with radiculopathy [M51.16] Post-Operative Diagnoses: * Lumbar disc herniation with radiculopathy [M51.16] Surgeon(s) and Role: * Edgar Dhaliwal MD - Primary Anesthesiologist: Alonso Segundo MD Anesthesiologist Shrink Pit Operator: NANI Mclean Business Transformation Analyst: Janeen Krishnan RN Urban Planning Teacher: Nasima Amaral, TECHNOLOGIST Business Transformation Analyst Relief: Tamie Zuñiga RN Scrub Person: Teressa [...] Implant Name Type Inv. Item Serial No. Naturopath Lot No. LRB No. Used Action SEALANT 10ML HEMOSTATIC MATRIX FAST PREP FLOSEAL - SNA SEALANT 10ML HEMOSTATIC MATRIX FAST PREP FLOSEAL NA PADRON BIO [id number] N/A 1 Implanted HEMOSTAT 4 X 8IN SURGICEL - SNA HEMOSTAT 4 X 8IN SURGICEL NA ETHICON [id number] N/A 1 Implanted HEMOSTAT 2 X 4IN SURGICEL FIBRILLAR - SNA HEMOSTAT 2 X 4IN SURGICEL FIBRILLAR NA ETHICON [id number] N/A 1 Implanted HEMOSTAT 8 X 12.5CM X 10MM SURGIFOAM GELATIN SPONGE - SNA HEMOSTAT 8 X 12.5CM X 10MM SURGIFOAM GELATIN SPONGE NA ETHICON [id number] N/A 1 Implanted Drain(s): * No LDAs found * Wound(s): Wound 01/13/22 1 Incision Lumbar Spine (Active) Wound Closure Sutures;Surgical Adhesive 12/06/21 0002 Edgar Dhaliwal MD 01/13/2022 10:35 AM documented in this [id number] Note* Op Note - Edgar Dhaliwal MD - 01/13/2022 12:21 PM EST VERITO BRENNAN [facility] [id number] 1965 DATE 01/13/2022 OPERATIVE REPORT SURGEON EDGAR [...] 50 mm x 22 mm minimally invasive [place] tube was then docked at the right L2-L3 interlaminar area. Fluoroscopy was then brought in and used to confirm the location of the tube dissector and [place] dissector spanning the right L2-L3 disk space. [...] posterior longitudinal ligament. Under cover of a [place] 4 root retractor, the L3 root and [...] condition. EDGAR DHALIWAL MD D 01/13/2022 10:25 [id number] T 01/13/2022 12:29 [facility] [id number] Hospital Discharge instructions* Discharge Instructions* Donya Tadeo RN - 01/13/2022 10:43 AM EST GENERAL POST-OPERATIVE PATIENT INSTRUCTIONS ANESTHESIA PRECAUTIONS: A responsible adult must stay with you for at least 24 hours after surgery. You may feel light headed,, dizzy, or nauseated during this time. Do not operate a vehicle (car, bike, motorcycle, hotel security officer) machinery or power tools. Do not make [...] to call your physician or the hospital homogenizer operator if you have any questions, and they will be glad to assist you. documented in this [id number] Hospital course Narrative* Edgar Dhaliwal MD - 01/13/2022 10:39 AM EST DISCHARGE SUMMARY Patient: Verito Brennan Date of : 1965 Site: [facility] Family Provider: Clair Dahl MD Admit Date: 01/13/2022 [...] Physician(s) Family Provider: Clair Dahl MD, Address: [address] [place] [address] Follow Up: No follow-up provider specified. Additional [...] on 01/13/22, 10:39 AM documented in this [id number] Note* Brief Op Note - Edgar Dhaliwal MD - 01/13/2022 10:35 AM EST Brief Post Operative Note Patient Name: Verito Brennan : 1965 (56 y.o.) Date of Service: 01/13/2022 [facility]: [id number] Procedure(s): Right L2-3 Minimally Invasive Hemilaminectomy, Foraminotomy, and Discectomy Pre-Operative Diagnoses: * Lumbar disc herniation with radiculopathy [M51.16] Post-Operative Diagnoses: * Lumbar disc herniation with radiculopathy [M51.16] Surgeon(s) and Role: * Edgar Dhaliwal MD - Primary Anesthesiologist: Alonso Segundo MD Anesthesiologist Shrink Pit Operator: TosNANI Poole Business Transformation Analyst: Janeen Krishnan RN Urban Planning Teacher: Nasima Amaral, TECHNOLOGIST Business Transformation Analyst Relief: Tamie Zuñiga RN Scrub Person: Teressa [...] Implant Name Type Inv. Item Serial No. Naturopath Lot No. LRB No. Used Action SEALANT 10ML HEMOSTATIC MATRIX FAST PREP FLOSEAL - SNA SEALANT 10ML HEMOSTATIC MATRIX FAST PREP FLOSEAL NA Cognotion [id number] N/A 1 Implanted HEMOSTAT 4 X 8IN SURGICEL - SNA HEMOSTAT 4 X 8IN SURGICEL NA ETHICON [id number] N/A 1 Implanted HEMOSTAT 2 X 4IN SURGICEL FIBRILLAR - SNA HEMOSTAT 2 X 4IN SURGICEL FIBRILLAR NA ETHICON [id number] N/A 1 Implanted HEMOSTAT 8 X 12.5CM X 10MM SURGIFOAM GELATIN SPONGE - SNA HEMOSTAT 8 X 12.5CM X 10MM SURGIFOAM GELATIN SPONGE NA ETHICON [id number] N/A 1 Implanted Drain(s): * No LDAs found * Wound(s): Wound 01/13/22 1 Incision Lumbar Spine (Active) Wound Closure Sutures;Surgical Adhesive 12/06/21 0002 Edgar Dhaliwal MD 01/13/2022 10:35 AM [id number] Attending History and physical note* Edgar Dhaliwal MD - 01/13/2022 7:57 AM EST INTERVAL HISTORY AND PHYSICAL Patient Name: Verito Brennan Admit Date: [id number] MR #: [id number] : 1965 The H&P has been reviewed [...] her recovery from anesthesia. Edgar Dhaliwal MD [id number] History and physical note* Edgar Dhaliwal MD - 01/13/2022 7:57 AM EST INTERVAL HISTORY AND PHYSICAL Patient Name: Verito Brennan Admit Date: [id number] MR #: [id number] : 1965 The H&P has been reviewed [...] anesthesia. Edgar Dhaliwal MD documented in this [id number] History and physical note* Edgar Dhaliwal MD [...] her recovery from anesthesia. Edgar Dhaliwal MD [id number] History of Present illness Narrative* Audrey Black [...] reports that he/she currently has an active [employer] account that she currently uses andhas no [...] well as the office phone number and customer manager's number. documented in this [id number] History of Present illness Narrative* MONTSERRAT Sosa - 12/29/2021 10:00 AM EDT [facility] NAME: Verito Brennan DATE OF : 1965 MEDICAL RECORD#: [id number] Telephone Visit Via Phone Call [facility] [address] [facility] [address] [facility] [phone] Telephone Visit [facility] 12/29/2021 MONTSERRAT Sosa Provider Location: [facility] Patient Location Supply Chain Manager: None Patient Location: Patient's Home Patient: Verito [...] there are inherent diagnostic limitations compared to otoj-hz-fvbj evaluations. We elected toproceed with the telephone [...] reviewing the HPI and Plan of Care. ELECTRIC METER TESTER HELPER: Vijay Acuna MD TODAY'S DATE: 12/29/2021 Subjective [...] without much difficulty. 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 She was not interested in a sleep [...] Coronary Angiogram; Surgeon: Rios Verduzco MD; Location: [facility] CUSTOMER RESPONSE REPRESENTATIVE; Service: Cardiovascular CARDIAC CATHETERIZATION N/A 08/23/2021 Procedure: Left Ventriculogram; Surgeon: Rios Verduzco MD; Location: [facility] CUSTOMER RESPONSE REPRESENTATIVE; Service: Cardiovascular CERVICAL ABLATION W/ LASER 1997 LEFT HEART CATH N/A 08/23/2021 Procedure: Left Heart Cath; Surgeon: Rios Verduzco MD; Location: [facility] CUSTOMER RESPONSE REPRESENTATIVE; Service: Cardiovascular HEMORRHOIDECTOMY 1997 ORTHOPEDIC SURGERY 1 [...] with patient. There is collaboration between the KNOCKUP WORKER and the consulting/collaborating physician regarding this patient's plan of care. Dr. Vijay Acuna MD has been updated regarding the patient's status via EMR. Thank you for allowing us to participate in the care of our patient. Please call if you have any further questions. Signature: MONTSERRAT Hager documented in this [id number] History of Present illness Narrative* Edgar Dhaliwal MD - 11/24/2021 12:54 PM EDT Chief Complaint Patient presents with Follow-up Patient presents here today for follow up after drier and pulverizer tender visit and discuss surgery. Right L2-3 disc [...] discectomy. Edgar Dhaliwal MD documented in this [id number] History of Present illness Narrative* Vijay Acuna MD - 11/09/2021 2:27 PM EDT Cardiology Clinic Visit Heart & Vascular [facility] 11/09/2021 Vijay Acuna MD [address] [facility] [phone] Patient: Verito Brennan Date of : 1965 [...] 6 months (around 05/09/2022). Vijay Acuna MD [facility] Non-Invasive Cardiology [facility] V[facility] Chief Complaint: HF Subjective [...] Coronary Angiogram; Surgeon: Rios Verduzco MD; Location: [facility] CUSTOMER RESPONSE REPRESENTATIVE; Service: Cardiovascular CARDIAC CATHETERIZATION N/A 08/23/2021 Procedure: Left Ventriculogram; Surgeon: Rios Verduzco MD; Location: [facility] CUSTOMER RESPONSE REPRESENTATIVE; Service: Cardiovascular CERVICAL ABLATION W/ LASER 1997 LEFT HEART CATH N/A 08/23/2021 Procedure: Left Heart Cath; Surgeon: Rios Verduzco MD; Location: [facility] CUSTOMER RESPONSE REPRESENTATIVE; Service: Cardiovascular HEMORRHOIDECTOMY 1997 ORTHOPEDIC SURGERY 1 [...] right ventricle systolic pressure is 38 mmHg. [facility] [facility] 07/22/21 Summary 1. Abnormal pharmacologic stress nuclear [...] 08/03/2021 HDL 56 08/03/2021 documented in this [id number] Instructions* Patient Instructions* Meir Huffman RN - 11/09/2021 2:00 PM EDT How to contact your Care Team: Provider: Vijay Acuna MD Nurse: Meir Huffman RN In case of an emergency please call 911. REFILLS: When in need for refills please call your care team or the office at [phone]. Please include medication name, pharmacy name, and specify 30-day or 90-day supply. Please check with your pharmacy within 24 hours of request for your refill. You must follow up as directed to continue current refills. Thank you documented in this [id number] History of Present illness Narrative* Chely So MA - 10/11/2021 9:24 AM EDT Scanned document documented in this [id number] History of Present illness Narrative* Chely So MA - 10/11/2021 9:23 AM EDT Scanned document documented in this [id number] History of Present illness Narrative* Vijay Acuna MD - 09/15/2021 9:16 AM EDT Cardiology Clinic Visit Heart & Vascular [facility] 09/15/2021 Vijay Acuna MD [address] [place] [id number] Patient: Verito Brennan Date of : 1965 [...] 6 weeks (around 10/27/2021). Vijay Acuna MD [facility] Non-Invasive Cardiology [facility] Heart and Vascular Chief Complaint: HF Subjective [...] Angiogram; Surgeon: Rios Verduzco MD; Location: HYBRID CUSTOMER RESPONSE REPRESENTATIVE; Service: Cardiovascular CARDIAC CATHETERIZATION N/A 08/23/2021 Procedure: Left Ventriculogram; Surgeon: Rios Verduzco MD; Location: HYBRID CUSTOMER RESPONSE REPRESENTATIVE; Service: Cardiovascular CERVICAL ABLATION W/ LASER 1997 HC LEFT HEART CATH N/A 08/23/2021 Procedure: Left Heart Cath; Surgeon: Rios Verduzco MD; Location: [facility] CUSTOMER RESPONSE REPRESENTATIVE; Service: Cardiovascular HEMORRHOIDECTOMY 1997 ORTHOPEDIC SURGERY 1 [...] right ventricle systolic pressure is 38 mmHg. [facility] 07/22/21 Summary 1. Abnormal pharmacologic stress nuclear [...] 08/03/2021 HDL 56 08/03/2021 documented in this [id number] Instructions* Patient Instructions* Meir Huffman RN - [...] your care team or the office at [phone]. Please include medication name, pharmacy name, and specify 30-day or 90-day supply. Please check with your pharmacy within 24 hours of request for your refill. You must follow up as directed to continue current refills. Thank you documented in this [id number] History of Present illness Narrative* MONTSERRAT Sosa - 08/31/2021 10:30 AM EDT [facility] NAME: Verito Brennan DATE OF : 1965 MEDICAL RECORD#: [id number] Telephone Visit Via Phone Call [facility] PRITESH SIMPSON ([address] [facility] PRITESH HECTORA[facility] [phone] Telephone Visit [facility] 08/31/2021 MONTSERRAT Sosa Provider Location: [address] [place] [address] H[place] Patient Location Supply Chain Manager: None Patient Location: Patient's Home Patient: Verito [...] there are inherent diagnostic limitations compared to vhun-be-kjzl evaluations. We elected toproceed with the telephone [...] reviewing the HPI and Plan of Care. ELECTRIC METER TESTER HELPER: Vijay Acuna MD TODAY'S DATE: 08/31/2021 Subjective [...] without much difficulty. 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 She was not interested in a sleep [...] Coronary Angiogram; Surgeon: Rios Verduzco MD; Location: [facility] CUSTOMER RESPONSE REPRESENTATIVE; Service: Cardiovascular CARDIAC CATHETERIZATION N/A 08/23/2021 Procedure: Left Ventriculogram; Surgeon: Rios Verduzco MD; Location: [facility] CUSTOMER RESPONSE REPRESENTATIVE; Service: Cardiovascular CERVICAL ABLATION W/ LASER 1997 LEFT HEART CATH N/A 08/23/2021 Procedure: Left Heart Cath; Surgeon: Rios Verduzco MD; Location: [facility] CUSTOMER RESPONSE REPRESENTATIVE; Service: Cardiovascular HEMORRHOIDECTOMY 1997 ORTHOPEDIC SURGERY 1 [...] will return to see us in November 20 minutes was spent w/ the patient. Over half of this time was spent in counseling regarding medication therapy, treatments, activity, diet planning including teaching and review of reports with patient. There is collaboration between the KNOCKUP WORKER and the consulting/collaborating physician regarding this patient's plan of care. Dr. Vijay Acuna MD has been updated regarding the patient's status via EMR. Thank you for allowing us to participate in the care of our patient. Please call if you have any further questions. Signature: MONTSERRAT Hager documented in this [id number] History of Present illness Narrative* MONTSERRAT Sosa - 08/09/2021 11:00 AM EDT [facility] NAME: Verito Brennan DATE OF : 1965 MEDICAL RECORD#: [id number] Telephone Visit Via Phone Call [facility] MONYMARY GRACE TATIANA ([address]) [facility] Marek SIMPSON [facility] [id number] Telephone Visit [facility] 08/09/2021 MONTSERRAT Sosa Provider Location: [address] [place], [place] [address]caty Simpson Patient Location Supply Chain Manager: None Patient Location: Patient's Home Patient: Verito [...] there are inherent diagnostic limitations compared to xpvd-fd-mdaw evaluations. We elected toproceed with the telephone [...] reviewing the HPI and Plan of Care. ELECTRIC METER TESTER HELPER: Vijay Acuna MD TODAY'S DATE: 08/09/2021 Subjective [...] without much difficulty. 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 She was not interested in a sleep [...] with patient. There is collaboration between the KNOCKUP WORKER and the consulting/collaborating physician regarding this patient's plan of care. Dr. Vijay Acuna MD has been updated regarding the patient's status via EMR. Thank you for allowing us to participate in the care of our patient. Please call if you have any further questions. Signature: MONTSERRAT Hager documented in this [id number] History of Present illness Narrative* Meir Huffman RN - 08/08/2021 9:39 AM EDT Called patient with [facility] date/time/instructions. Patient verbalized understanding. Labs up to date, no hydration needed, H&P completed. Consent on arrival Heart Catheterization and Pre-Cath Covid testing Date and Time of your procedure is on Monday, August 23, 2021 at 10:00 AM by vacuum form operator, Dr. Verduzco. Please arrive at [facility] and check in at the Outpatient Registration by 8:00 AM. Please park in the garage next to the medical office building. If needed, gun stocker parking is available at the front entrance [...] our office before restarting the medication at [phone]. ___ If you are an insulin-dependent diabetic [...] or concerns please contact DENEEN Torrez at [phone]. documented in this [id number] History of Present illness Narrative* Vijay Acuna MD - 08/03/2021 2:20 PM EDT Cardiology Clinic Visit Heart & Vascular [facility] 08/03/2021 Vijya Acuna MD [address] [place] [phone] Patient: Verito Brennan Date of : [...] Labs ordered Pre-op risk stratification pending - LHC and medical management of new diagnosed tolic HF. Possible CAD - start atorvastatin 20mg daily, lipid panel ordered RTC in 4 weeks, HF clinic visit next week for med titration Vijay Acuna MD [facility] Non-Invasive Cardiology [facility] Heart and Vascular Chief Complaint: HF Subjective [...] right ventricle systolic pressure is 38 mmHg. [facility] 07/22/21 Summary 1. Abnormal pharmacologic stress nuclear [...] LDLCALC, LDLDIRECT, TRIG, HDL documented in this [id number] Instructions* Patient Instructions* Meir Huffman RN - 08/03/2021 2:11 PM EDT How to contact your Care Team: Provider: Vijay Acuna MD Nurse: Meir Huffman RN In case of an emergency please call 911. REFILLS: When in need for refills please call your care team or the office at [phone]. Please include medication name, pharmacy name, and specify 30-day or 90-day supply. Please check with your pharmacy within 24 hours of request for your refill. You must follow up as directed to continue current refills. Thank you Heart Catheterization and Pre-Cath Covid testing Date and Time of your procedure is on at by vacuum form operator, . Please arrive at [facility] and check in at the Outpatient Registration by . Please park in the garage next to the medical office building. If needed, gun stocker parking is available at the front entrance [...] our office before restarting the medication at [phone]. ___ If you are an insulin-dependent diabetic [...] or concerns please contact DENEEN Torrez at [phone]. documented in this [id number] History of Present illness Narrative* Analilia Quiroz [...] MONTSERRAT Sosa - 07/25/2021 8:00 AM EDT [facility] NAME: Verito Brennan DATE OF : 1965 MEDICAL RECORD#: [id number] ELECTRIC METER TESTER HELPER: Vijay Acuna MD TODAY'S DATE: 07/25/2021 Subjective [...] without much difficulty. 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 She was not interested in a sleep [...] with patient. There is collaboration between the KNOCKUP WORKER and the consulting/collaborating physician regarding this patient's plan of care. Dr. Vijay Acuna MD has been updated regarding the patient's status via EMR. Thank you for allowing us to participate in the care of our patient. Please call if you have any further questions. Signature: MONTSERRAT Hager documented in this [id number] Instructions* Patient Instructions* MONTSERRAT Sosa - 07/25/2021 8:25 AM EDT Please stop taking lisinopril. Please start Entresto 24/26 mg tomorrow at breakfast and bedtime. Please bring in your wrist cuff at your next visit. documented in this [id number] History of Present illness Narrative* Vijay Acuna MD - 07/05/2021 10:28 AM EDT Cardiology Clinic Visit Heart & Vascular [facility] 07/05/2021 Vijay Acuna MD [address] [place] [phone] Patient: Verito Brennan Date of : [...] chest pain. She has no history of SC. We discussed that given her left bundle [...] me in 4 weeks. Vijay Acuna MD [facility] Non-Invasive Cardiology [facility] Heart and Vascular Chief Complaint: Pre-op Exam (Minimal invasive back surgery on a disc) and Abnormal ECG (Per Daylin Ernandez CNP) Subjective Verito Brennan is a 56 y.o. woman with history of arthritis and back pain who presents to clinicfor preoperative risk stratification for hemilaminectomy, foraminotomy, and discectomy. She denies any prior cardiac history including HF, SC, PCI, valve issues and arrhythmias. She reports [...] LDLCALC, LDLDIRECT, TRIG, HDL documented in this [id number] Instructions* Patient Instructions* Meir Huffman RN - 07/05/2021 9:50 AM EDT How to contact your Care Team: Provider: Vijay Acuna MD Nurse: Meir Huffman RN In case of an emergency please call 911. REFILLS: When in need for refills please call your care team or the office at [phone]. Please include medication name, pharmacy name, and specify 30-day or 90-day supply. Please check with your pharmacy within 24 hours of request for your refill. You must follow up as directed to continue current refills. Thank you documented in this [id number] History of Present illness Narrative* Delmy Goldman [...] reports that he/she currently has an active [employer] account that they currently do not use. I recommended that the patient contact the [employer] Assistance number to regain access. I then, [...] well as the office phone number and customer manager's number. documented in this [id number] History of Present illness Narrative* Edgar Dhaliwal MD - 05/23/2021 2:35 PM EDT Chief Complaint Patient presents with Results MRI Lumbar Back pain and sciatica. VICENTE Doshi is a 56-year-old female who returns to review her MRI of the lumbar spine from [facility] at 03/18/2021. 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 She also states she had a fracture in her spine xochfbskbiifg83+ years ago. She has used hydrocodone sparingly [...] obtained. Edgar Dhaliwal MD documented in this [id number] Evaluation note* Encounter Date Diagnosis Assessment Notes [...] procedure explained to patient; patient verbalizes understanding. Apr,Lumbosacral spondylosis (ICD-10 - M47.817) In the future if the pain persists, we can consider proceeding with a lumbar facet medial branch nerve block followed by a RFA if applicable under fluoroscopic guidance Apr,Lumbar radiculopathy (ICD-10 - M54.16) Patient reports 100% relief of her lower extremity pain following procedure. She denies radicular symptoms today. Apr,hronic pain (ICD-10 - G89.29) Continue with current treatment plan. Patient is advised to contact her PCP regarding dizziness [employer] Other [id number] Miscellaneous Notes* Addendum Note - Erika Louis PA-C - 03/08/2021 8:27 PM EST Addended by: ERIKA LOUIS on: 03/08/2021 08:27 PM Modules accepted: Orders documented in this [id number] History of Present illness Narrative* Erika Louis [...] the imaging - Nursing notes reviewed Erika Louis MS, MPAP, WILL [facility] Office: Chief [...] she bent over a garbage barrel to black pickler an empty jug when she experienced acute [...] spine as detailed above. documented in this [id number] History general Narrative - Reported* Type Description Date Medical History seasonal allergies Medical Historylow backpainMedical Historysebaceous cyst of left breastSurgical HistoryL1-l2 laminectomy microdiscectomy left12/02/2014Surgical Historysurgery for endometriosis03/29/2015 [employer] Other Evaluation note* Diagnosis Lumbar radiculopathy- Primary Thoracic or lumbosacral neuritis or radiculitis, unspecified [facility] Diagnosis Lumbar facet arthropathy- Primary Spondylosis of unspecified site without mention of myelopathy Lumbar radiculopathy Thoracic or lumbosacral neuritis or radiculitis, unspecified Lumbar degenerative disc disease Scoliosis, unspecified scoliosis type, unspecified spinal region Lumbar radiculopathy Thoracic or lumbosacral neuritis or radiculitis, unspecified [facility]* Diagnosis Lumbar disc herniation with radiculopathy [...] bundle branch block [facility]* Diagnosis Chronic systolic HF (heart failure) (HCC) Chronic systolic heart failure Hypertension, unspecified type HFrEF (heart failure with reduced ejection fraction) (HCC) [facility]* Diagnosis Chronic systolic HF (heart failure) (HCC)- Primary Chronic systolic heart failure Pre-operative cardiovascular examination Abnormal stress test Other nonspecific abnormal cardiovascular system function study Coronary artery disease involving barrow coronary artery of barrow heart without angina pectoris [facility]* Diagnosis HFrEF (heart failure with reduced ejection fraction) (HCC)- Primary Hypertension, unspecified type [facility] [employer] Other Evaluation note* Diagnosis HFrEF (heart failure with reduced ejection fraction) (HCC)- Primary Hypertension, unspecified type [facility]* Diagnosis Chronic systolic HF (heart failure) (HCC)- Primary Chronic systolic heart failure Pre-operative cardiovascular examination Hyperlipidemia, unspecified hyperlipidemia type [facility]* Diagnosis Chronic systolic HF (heart failure) (HCC)- Primary Chronic systolic heart failure Pre-operative cardiovascular examination Hyperlipidemia, unspecified hyperlipidemia type [facility]* Diagnosis [...] Other postprocedural status [facility]* Diagnosis Status post lumbar discectomy- Primary Other postprocedural status [facility]* Diagnosis Lumbar disc herniation with radiculopathy- Primary Displacement of lumbar intervertebral disc without myelopathy Status post discectomy Other postprocedural status Facet arthropathy Spondylosis of unspecified site without mention of myelopathy [facility]* Diagnosis Chronic systolic HF (heart failure) (HCC) Chronic systolic heart failure [facility]* Diagnosis Status post lumbar discectomy- Primary Other postprocedural status Facet arthropathy Spondylosis of unspecified site without mention of myelopathy Status post lumbar discectomy Other postprocedural status [facility] Diagnosis Scoliosis, unspecified scoliosis type, unspecified spinal region- Primary Scoliosis of lumbar spine, unspecified scoliosis type [facility] Diagnosis Chronic systolic HF (heart failure) (HCC)- Primary Chronic systolic heart failure Hyperlipidemia, unspecified hyperlipidemia type [facility] Diagnosis Failed back syndrome, lumbosacral [facility] Diagnosis Failed back syndrome, lumbosacral- Primary [facility]* Diagnosis Failed back syndrome, lumbosacral- Primary [facility] Diagnosis Failed back syndrome, lumbosacral- Primary Spinal cord stimulator status [facility]* Diagnosis Failed back syndrome, lumbosacral- Primary Failed back syndrome, lumbosacral S/P insertion of spinal cord stimulator [facility] Diagnosis Status post insertion of spinal cord stimulator- Primary Failed back syndrome, lumbosacral Status post lumbar discectomy Other postprocedural status Neuropathy Mononeuritis of unspecified site [facility] Diagnosis Status post insertion of spinal cord stimulator- Primary Neuropathy Mononeuritis of unspecified site [facility] Diagnosis Status post insertion of spinal cord stimulator- Primary [facility] Diagnosis Status post insertion of spinal cord stimulator- Primary Failed back syndrome, lumbosacral Neuropathy Mononeuritis of unspecified site [facility] Diagnosis Status post insertion of spinal cord stimulator- Primary [facility]* Diagnosis Status post insertion of spinal cord stimulator- Primary [facility]* Diagnosis Ellison sign present- Primary Numbness and tingling in left arm [facility] Diagnosis Ellison sign present- Primary [facility] Diagnosis Carpal tunnel syndrome on left- Primary Carpal tunnel syndrome Ellison sign present Numbness and tingling in left arm [facility] Diagnosis Chronic systolic HF (heart failure) (HCC) Chronic systolic heart failure [facility] Diagnosis Chronic systolic HF (heart failure) (HCC) Chronic systolic heart failure [facility] Diagnosis Chronic systolic HF (heart failure) (HCC)- Primary Chronic systolic heart failure DE OLIVEIRA (dyspnea on exertion) Other dyspnea and respiratory abnormality Chest pressure Other chest pain Hyperlipidemia, unspecified hyperlipidemia type [facility] Diagnosis Chronic systolic HF (heart failure) (HCC) Chronic systolic heart failure [facility] Diagnosis Onset Date Resolution Status Anxiety acuteChronic systolic heart failureacuteRight shoulder painacute [facility] Work Phone: Evaluation note* Diagnosis Onset Date Resolution Status Anxiety acuteChronic systolic heart failureacuteRight shoulder painacuteBiceps tendonitis on rightacuteRotator cuff syndrome of right shoulderacute [facility] Work Phone: evaluation note* Diagnosis Onset Date Resolution Status Anxiety acuteChronic systolic heart failureacuteRight shoulder painacuteBiceps tendonitis on rightacuteRotator cuff syndrome of right shoulderacuteArthritis of right acromioclavicular jointacuteBiceps tendonitis on rightacuteRotator cuff syndrome of right shoulderacute [facility] Work Phone: Evaluation note* Diagnosis Plantar fasciitis- Primary Plantar fascial fibromatosis Contracture of left ankle documented [facility]* Diagnosis Plantar fasciitis- Primary Plantar fascial fibromatosis Contracture of left ankle documented in this encounter [facility]* Diagnosis Plantar fasciitis- Primary Plantar fascial fibromatosis Contracture of left ankle documented in this encounter [facility] Healthcare[facility] noteNo assessment information availableUniversity [facility]als [facility] Work Phone: Evaluation note* Diagnosis Pre-op testing Unspecified pre-operative examination Pre-op exam Tobacco abuse Tobacco use disorder Abnormal EKG Nonspecific abnormal electrocardiogram (ECG) (EKG) Obesity (BMI 30.0-34.9) Pre-op exam- Primary Pre-op testing Unspecified pre-operative examination Hypertension, unspecified type HFrEF (heart failure with reduced ejection fraction) (HCC) Obesity (BMI 30.0-34.9) Tobacco abuse Tobacco use disorder Lumbar disc herniation with radiculopathy Displacement of lumbar intervertebral disc without myelopathy Anxiety Anxiety state, unspecified Pre-op testing Unspecified pre-operative examination Failed back syndrome, lumbosacral Hypertension, unspecified type HFrEF (heart failure with reduced ejection fraction) ([facility]) Tobacco abuse Tobacco use disorder Obesity (BMI 30.0-34.9) Pre-op exam Chronic systolic HF (heart failure) (HCC) Chronic systolic heart failure [facility] [facility] Diagnosis Pre-op testing Unspecified pre-operative examination Pre-op exam Tobacco abuse Tobacco use disorder Abnormal EKG Nonspecific abnormal electrocardiogram (ECG) (EKG) Obesity (BMI 30.0-34.9) Pre-op exam- Primary Pre-op testing Unspecified pre-operative examination Hypertension, unspecified type HFrEF (heart failure with reduced ejection fraction) ([facility]) Obesity (BMI 30.0-34.9) Tobacco abuse Tobacco use disorder Lumbar disc herniation with radiculopathy Displacement of lumbar intervertebral disc without myelopathy Anxiety Anxiety state, unspecified Pre-op testing Unspecified pre-operative examination Failed back syndrome, lumbosacral Hypertension, unspecified type HFrEF (heart failure with reduced ejection fraction) ([facility]) Tobacco abuse Tobacco use disorder Obesity (BMI 30.0-34.9) Pre-op exam Vasovagal near syncope- Primary Syncope and collapse Chest pressure Other chest pain Chronic systolic HF (heart failure) (HCC) Chronic systolic heart failure Palpitations DE OLIVEIRA (dyspnea on exertion) Other dyspnea and respiratory abnormality documented [facility] Diagnosis Pre-op testing Unspecified pre-operative examination Pre-op exam Tobacco abuse Tobacco use disorder Abnormal EKG Nonspecific abnormal electrocardiogram (ECG) (EKG) Obesity (BMI 30.0-34.9) Pre-op exam- Primary Pre-op testing Unspecified pre-operative examination Hypertension, unspecified type HFrEF (heart failure with reduced ejection fraction) ([facility]) Obesity (BMI 30.0-34.9) Tobacco abuse Tobacco use disorder Lumbar disc herniation with radiculopathy Displacement of lumbar intervertebral disc without myelopathy Anxiety Anxiety state, unspecified Pre-op testing Unspecified pre-operative examination Failed back syndrome, lumbosacral Hypertension, unspecified type HFrEF (heart failure with reduced ejection fraction) ([facility]) Tobacco abuse Tobacco use disorder Obesity (BMI 30.0-34.9) Pre-op exam Chest pressure- Primary Other chest pain DE OLIVEIRA (dyspnea on exertion) Other dyspnea and respiratory abnormality [facility] - [facility]orted* Type Description Date Medical History seasonal allergies Medical Historylow backpainMedical HistoryLBBBMedical Historylumbar radiculopathy,rightMedical Historysituational anxietyMedical Historycardiac ejection fractionMedical Historydecreased cardiac ejection fractionMedical Historychronic systolic heart failureSurgical HistoryL1-l2 laminectomy microdiscectomy left12/02/2014Surgical Historysurgery for endometriosis03/29/2015 Surgical Historylaminectomy/fnoeztzplv71/11/2022 [facility] Other History general Narrative - Reported* Type Description Date Medical History seasonal allergies Medical Historylow backpainMedical HistoryLBBBMedical Historylumbar radiculopathy,rightMedical Historysituational anxietyMedical Historycardiac ejection fractionMedical Historydecreased cardiac ejection fractionMedical Historychronic systolic heart failureSurgical HistoryL1-l2 laminectomy microdiscectomy left12/02/2014Surgical Historysurgery for endometriosis03/29/2015 Surgical Historylaminectomy/tevfrlmcro09/11/2022Hospitalization Historysee surgical hx [facility] Other Hospital course Narrative No data available for this section [facility] Hospital Discharge instructionsAmbulatory Orders* Referral to Cardiology Time Frame: 06/22/23, Location: None Selected * Referral to Orthopedic Surgery Time Frame: 06/22/23, Location: None Selected [facility] Work Phone: Hospital Discharge instructions No data available for this section [facility] Instructions* Attachments The following attachments cannot be sent through Care Everywhere. * Heart Failure: Medicines to Avoid (Tanzanian) * Neuropathic Pain (Tanzanian) documented in this encounter[facility]Health[facility] note No data available for this section [facility] Reason for visit Narrative* Auth/CertSpecialtyDiagnoses / ProceduresReferred By ContactReferred To Contact Diagnoses Lumbar disc herniation with radiculopathy Lumbar disc herniation with radiculopathy [M51.16] Procedures IA LAMNOTMY INCL W/DCMPRSN NRV ROOT 1 INTRSPC LUMBR Right L2-3 Minimally Invasive Hemilaminectomy, Foraminotomy, and Discectomy Edgar Dhaliwal MD [address] [place] [address] Referral IDStatusReasonStart DateExpiration DateVisits RequestedVisits [id number] [facility] Narrative* Auth/CertSpecialtyDiagnoses / Procedures Referred By ContactReferred To Contact Diagnoses Failed back syndrome, lumbosacral Failed back syndrome, lumbosacral [M96.1] Procedures IA PRQ IMPLTJ NSTIM ELECTRODE ARRAY EPIDURAL Bilateral Insertion Trial Spinal Cord Stimulator via Fluoroscopic T12-L2 Approach Edgar Dhaliwal MD [address] [place] [address] Referral IDStatusReasonStart DateExpiration DateVisits RequestedVisits [id number] [facility] for visit Narrative* Auth/CertSpecialtyDiagnoses / Procedures Referred By ContactReferred To Contact Diagnoses Failed back syndrome, lumbosacral Failed back syndrome, lumbosacral [M96.1] Procedures IA SCHNEIDER IMPLTJ NSTIM ELTRDS PLATE/PADDLE EDRL IA INSJ/RPLCMT SPI NPGR DIR/INDUXIVE COUPLING Thoracic 10-11 Laminectomy, Insertion of Permanent Spinal Cord Stimulator Electrodes and Insertion of Right Flank Implantable Pulse Generator. Edgar Dhaliwal MD [address] [place] [phone] Referral IDStatusReasonStart DateExpiration DateVisits RequestedVisits [id number] [facility] Reason for Referral SpecialtyDiagnoses / ProceduresReferred By ContactReferred To Contact Neurosurgery Diagnoses Lumbar radiculopathy Clair Dahl MD [address] [facility] [place] [address] Edgar Dhaliwal MD [address] [place] [address] Referral IDStatusReasonStart DateExpiration DateVisits RequestedVisits [id number]/16/202112/[id number] / Procedures Referred By ContactReferred To ContactRadiology Diagnoses Lumbar radiculopathy Lumbar facet arthropathy Lumbar degenerative disc disease Scoliosis, unspecified scoliosis type, unspecified spinal region Procedures MR Lumbar Spine Without Contrast Erika Louis PA-C [address] [place] [address] Referral IDStatusReasonStart DateExpiration DateVisits RequestedVisits [id number] Request/[id number] / Procedures Referred By ContactReferred To ContactCardiology Diagnoses Chronic systolic HF (heart failure) (HCC) Vijay Acuna MD [address] [place] [address] Ami Power, [employer] WORK[employer] [address] [place] [address] Referral IDStatusReasonStart DateExpiration DateVisits RequestedVisits [id number]/4/20225/[id number] / Procedures Referred By ContactReferred To ContactRadiology Diagnoses Chronic systolic HF (heart failure) ([facility]) Procedures NM Myocardial Perfusion Multiple SPECT Vijay Acuna MD [address] [place] [address] Referral IDStatusReasonStart DateExpiration DateVisits RequestedVisits [id number]/4/20225/[id number] / Procedures Referred By ContactReferred To ContactCardiology Diagnoses LBBB (left bundle branch block) Procedures Echocardiogram complete Vijay Acuna MD [address] [place] [address] Referral IDStatusReasonStart DateExpiration DateVisits RequestedVisits [id number]/3/20225/[id number] / ProceduresReferred By ContactReferred To Contact Ami Power CNS [address] [place] [address] Referral IDStatusReasonStart DateExpiration DateVisits RequestedVisits [id number] Drowmz33EfbsdgbdnCvapxzvdr / ProceduresReferred By ContactReferred To ContactCardiology Diagnoses Chronic systolic HF (heart failure) (HCC) Procedures Echocardiogram complete Vijay Acuna MD [address] [place] [address] Referral IDStatusReasonStart DateExpiration DateVisits RequestedVisits [id number] Request/[id number] / Procedures Referred By ContactReferred To ContactPhysical Therapy Diagnoses Lumbar disc herniation with radiculopathy Status post discectomy Facet arthropathy Erika Louis PA-C [address] [place] [address] OF SERVICE NOT IN SYSTEM Referral IDStatusReasonStart DateExpiration DateVisits RequestedVisits [id number] Review Patient Preference [id number] / ProceduresReferred By ContactReferred To ContactRadiology Diagnoses Status post lumbar discectomy Procedures MR Lumbar Spine Without Contrast Erika Louis PA-C [address] [facility] [address] [place] [address] [address] [place] [address] Referral IDStatusRelisaSttahir DateExpiration DateVisits RequestedVisits [id number] Request/ Reason 03/22/22 Notes lef t heel pain and endorses all symptoms of plantar fasciitis Diagnosis 1 Plantar fasciitis, l eft (M72.2) Referral Organization [facility] [employer] [facility] marylou Referring Provider First Name Clair Referring Provider Last Name Nabila Referring Provider Specialty [facility] Referred Organization [facility] Referred Provider Sarah Jean Referred Address [address] [place], [place],[address] Referred Provider Specialty Podiatry - S urgical [...] a pain device was just placed in [place]. Send recent op notes. Questions if an injection could be beneficial. Diagnosis 1 Thoracic spine pain (M54.6) Referral Organization [facility] [employer] marylou Referring Provider First Name Clair Referring Provider Last Name Nabila Referring Provider Specialty [facility] Referred Address [address] [facility],[place],[address] Referred Provider Specialty Pain Medicin e Referral Priority Routine General Notes MariluzShanae salomon 02:32:34 PM >received today, notes locked, attachments made, referral faxed SpecialtyDiagnoses / ProceduresReferred By ContactReferred To Contact Day, Jessenia Stewart MD [address] [facility] [place] [address] Referral IDStatWeatherford [facility] – WeatherfordasonRayle DateExpiration DateVisits RequestedVisits [id number] Rtfkyf81DxmfttcamTmrnvihwm / ProceduresReferred By ContactReferred To ContactNeurology Diagnoses [place] sign present Numbness and tingling in left arm Caroline Carrion PA-C [address] [facility] [place] [address] Vikram Fowler MD [address] [facility] [place] [address] Referral IDStatusReasonStart DateExpiration DateVisits RequestedVisits [id number]/11/202310/10/927478FmweqlzxkJophloxfj / ProceduresReferred By ContactReferred To ContactRadiology Diagnoses [place] sign present Numbness and tingling in left arm Procedures MR Cervical Spine Without Contrast Caroline Carrion PA-C [address] [facility] [place] [address] [facility] [address] [facility] [place] [address] Referral IDStatusReasonStart DateExpiration DateVisits RequestedVisits [id number] Jildsgm48/[id number] / ProceduresReferred By ContactReferred To ContactRadiology Diagnoses [place] sign present Procedures MR Brain Without Contrast Caroline Carrion PA-C [address] [place] [address] [address] Referral IDStatusReasonStart DateExpiration DateVisits RequestedVisits [id number] Takscss91/[id number] / ProceduresReferred By ContactReferred To ContactCardiology Diagnoses DE OLIVEIRA (dyspnea on exertion) Chest pressure Procedures Echocardiogram complete Vijay Acuna MD [address] [place] [address] Referral IDStatusReasonStart DateExpiration DateVisits RequestedVisits [id number] Request/ Advance Directives No Advanced Directives Records FoundDocuments on File TypeDate RecordedPatient RepresentativeExplanationAdvance Directives and Living Will03/07/2021 12:06 PMNOT ON FILE HERETypeDate RecordedPatient Vamp Stitcher ExplanationAdvance Directives and Living Will03/07/2021 12:06 PMNOT ON FILE HERE TypeDate RecordedPatient RepresentativeExplanationAdvance Directives and Living Will07/04/2021 12:06 PMNOT ON FILE HERETypeDate RecordedPatient Vamp Stitcher ExplanationAdvance Directives and Living Will07/05/2021 1:46 PMNOT ON FILE HERE Code StatusDate ActivatedDate InactivatedCommentsFull Code08/23/2021 9:22 AM 08/23/2021 10:20 AMCode StatusDate ActivatedDate InactivatedCommentsFull Code 08/23/2021 9:22 AM08/23/2021 10:20 AMDate ActivatedDate InactivatedComments 08/23/2021 9:22 AM08/23/2021 10:20 AMDate ActivatedDate InactivatedComments 08/23/2021 9:22 AM08/23/2021 10:20 AMCode StatusDate ActivatedDate Inactivated CommentsFull Code08/23/2021 9:22 AM08/23/2021 10:20 AMCode StatusDate Activated Date InactivatedCommentsFull Code08/23/2021 9:22 AM08/23/2021 10:20 AMCode Status Date ActivatedDate InactivatedCommentsFull Code08/24/2022 2:45 PM08/25/2022 3:50 PMCode StatusDate ActivatedDate InactivatedCommentsFull Code08/23/2021 9:22 AM 08/23/2021 10:20 AMCode StatusDate ActivatedDate InactivatedCommentsFull Code 08/24/2022 2:45 PM08/25/2022 3:50 PMCode StatusDate ActivatedDate Inactivated CommentsFull Code08/23/2021 9:22 AM08/23/2021 10:20 AMDate ActivatedDate InactivatedComments08/24/2022 2:45 PM08/25/2022 3:50 PMDate ActivatedDate InactivatedComments08/23/2021 9:22 AM08/23/2021 10:20 AMDate ActivatedDate InactivatedComments08/24/2022 2:45 PM08/25/2022 3:50 PMDate ActivatedDate InactivatedComments08/23/2021 9:22 AM08/23/2021 10:20 AM Advance Directive Response Recorded Date/ Time Advance Directives No February 9:11am Summary Purpose Family History No Family History Records Found Relationship Condition Age at Onset Recorded Date/T geoff brother Heart disease Unknown Diabetes mellitusUnknownbrotherDiabetes mellitusUnknownNot SpecifiedMalignant neoplasmUnknownNot SpecifiedDiabetes mellitusUnknown Relationship Condition Age at Onset Recorded Date/T geoff brother Heart disease Unknown Diabetes mellitusUnknownbrotherDiabetes mellitusUnknownmotherMalignant neoplasm UnknownmotherDiabetes mellitusUnknown Chief Complaint and Reason for Visit Chief Complaint check up Reason for Visit Anxiety Chronic systolic heart failure Right shoulder pain Chief Complaint check up CONSULT DR CLAIR DAHL RT SHOULDER PAIN, NX M25.511 - Pain in right shoulderReason for VisitAnxiety Chronic systolic heart failure Right shoulder pain Biceps tendonitis on right Rotator cuff syndrome of right shoulder Chief Complaint check up CONSULT DR CLAIR DAHL RT SHOULDER PAIN, NX M25.511 - Pain in right shoulder 6-8 week recheckReason for VisitAnxiety Chronic systolic heart failure Right shoulder pain [...] Weight gain May 23, 2024 11: 25am Chief Complaint Admit Date R30 May 08, 2024 1:00 pm UA, frequency, odor, tenderness May 1:32pm to go over UA May 23, 2024 11: 25am URI July 14, 2024 1:43p m Additional Source Comments Care Teams (unrecognized sec tion and content) Team MemberRelationshipSpecialtyStart DateEnd Date Clair Dahl MD [address] [place] [address] PCP - GeneralFamily Clxbvugs43/16/21Team MemberRelationshipSpecialtyStart Date End Date Clair Dahl MD [address] [place] [address] PCP - GeneralFamily Zqhiymwm21/16/21Team MemberRelationshipSpecialtyStart Date End Date Clair Dahl MD [address] [place] [address] PCP - Generalmily Kvsqyxzd00/16/21Team MemberRelationshipSpecialtyStart Date End Date Clair Dahl MD [address] [place] [address] PCP - GeneralFamily Dbafqzmo14/16/21Team MemberRelationshipSpecialtyStart Date End Date Clair Dahl MD [address] [place] [address] PCP - GeneralFamily Gyuzbiwb29/16/21Team MemberRelationshipSpecialtyStart Date End Date Clair Dahl MD [address] [place] [address] PCP - GeneralFamily Wknttahp45/16/21Team MemberRelationshipSpecialtyStart Date End Date Clair Dahl MD [address] [place] [address] PCP - GeneralFamily Kerktvgx93/16/21Team MemberRelationshipSpecialtyStart Date End Date Clair Dahl MD [address] [place] [address] PCP - GeneralFamily Lpnzprgc26/16/21Team MemberRelationshipSpecialtyStart Date End Date Clair Dahl MD [address] [place] [address] PCP - GeneralFamily Fgnfvksm44/16/21Team MemberRelationshipSpecialtyStart Date End Date Clair Dahl MD [address] [place] [address], [place] [address] PCP - GeneralFamily Myyjixax83/16/21Team MemberRelationshipSpecialtyStart Date End Date Clair Dahl MD [address] [place] [address] [place] [address] PCP - GeneralFamily Lyskfyjk76/16/21Team MemberRelationshipSpecialtyStart Date End Date Clair Dahl MD [address] [place], [place] [address], [place] [address] PCP - GeneralFamily Bkhxqtqw80/16/21Team MemberRelationshipSpecialtyStart Date End Date Clair Dahl MD [address] [facility] [place] [address] PCP - GeneralFamily Dtpfvcvs48/16/21Team MemberRelationshipSpecialtyStart Date End Date Clair Dahl MD [address] [facility] [place] [address] PCP - GeneralFamily Rislytpm50/16/21Team MemberRelationshipSpecialtyStart [place] [address] [place] [address] [place] [address] PCP - GeneralFamily Qnktnaiw90/16/21Team MemberRelationshipSpecialtyStart [place] [address] [place] [address] [place] [address] PCP - GeneralFamily Jmqdngif72/16/21Team MemberRelationshipSpecialtyStart Date End Date Clair Dahl MD [address] [facility] [place] [address] PCP - GeneralFamily Kyfjukgn32/16/21Team MemberRelationshipSpecialtyStart Date End Date Clair Dahl MD [address] [facility] [place] [address] PCP - GeneralFamily Ijevehxw23/16/21Team MemberRelationshipSpecialtyStart Date End Date Clair Dahl MD [address] [facility] [place] [address] PCP - GeneralFamily Wgyxvdtu42/16/21Team MemberRelationshipSpecialtyStart Date End Date Clair Dahl MD [address] [place] [address] [place] [address] PCP - GeneralFamily Ryjgqyom61/16/21Team MemberRelationshipSpecialtyStart Date End Date Clair Dahl MD [address] [place] [address] [place] [address] PCP - GeneralFamily Arowokgw65/16/21Team MemberRelationshipSpecialtyStart Date End Date Clair Dahl MD [address] [place] [address] [place] [address] PCP - GeneralFamily Qezwanbd34/16/21Team MemberRelationshipSpecialtyStart Date End Date Clair Dahl MD [address] [place] [address] [place] [address] PCP - GeneralFamily Dcbjhgib33/16/21Team MemberRelationshipSpecialtyStart Date End Date Clair Dahl MD [address] [place] [address] [place] [address] PCP - GeneralFamily Ndctcctr37/16/21Team MemberRelationshipSpecialtyStart Date End Date Clair Dahl MD [address] [place] [address] [place] [address] PCP - GeneralFamily Tubnmdec92/16/21Team MemberRelationshipSpecialtyStart Date End Date Clair Dahl MD [address] [place] [address] [place] [address] PCP - GeneralFamily Cjjfjekh92/16/21Team MemberRelationshipSpecialtyStart Date End Date Clair Dahl MD [address] [place] [address] [place] [address] PCP - GeneralFamily Wwyetjop23/16/21Team MemberRelationshipSpecialtyStart Date End Date Clair Dahl MD [address] [place] [address] [place] [address] PCP - GeneralFamily Islrjqjj51/16/21Team MemberRelationshipSpecialtyStart Date End Date Clair Dahl MD [address] [place] [address] [place] [address] PCP - GeneralFamily Zkduoqzd14/16/21Team MemberRelationshipSpecialtyStart Date End Date Clair Dahl MD [address] [place] [address] [place] [address] PCP - GeneralFamily Uyurjdxo35/16/21Team MemberRelationshipSpecialtyStart Date End Date Clair Dahl MD [address] [place] [address] [place] [address] PCP - GeneralFamily Hfzoduza14/16/21Team MemberRelationshipSpecialtyStart Date End Date Clair Dahl MD [address] [place] [address] [place] [address] PCP - GeneralFamily Jxsyeuyb10/16/21Team MemberRelationshipSpecialtyStart Date End Date Clair Dahl MD [address] [place] [address] [place] [address] PCP - GeneralFamily Nbczoqtp31/16/21Team MemberRelationshipSpecialtyStart Date End Date Clair Dahl MD [address] [place] [address] [place] [address] PCP - GeneralFamily Wzlzssmw93/16/21Team MemberRelationshipSpecialtyStart Date End Date Clair Dahl MD [address] [place] [address] [place] [address] [place] [address] PCP - [facility]Unity[facility] Vvwqtcam22/16/21Team MemberRelationshipSpecialtyStart Date End Date Clair Dahl MD [address] [place] [place] [address] [place] [address] PCP - Generalmily Ojcwqtze99/16/21Team MemberRelationshipSpecialtyStart Date End Date Clair Dahl MD [address] [place] [place] [address] [place] [address] PCP - GeneralFamily Sfduqhrl36/16/21Team MemberRelationshipSpecialtyStart Date End Date Clair Dahl MD [address] [place] [place] [address] [place] [address] PCP - GeneralFamily Tgeouidz42/16/21Team MemberRelationshipSpecialtyStart Date End Date Clair Dahl MD [address] [place] [address] [place] [address] PCP - Generalmily Tiyqrbdm26/16/21 Team Status: Active Member Role Status Dates Clair Dahl MD Primary Care Provider Active Team Status: Inactive Member Role Status Dates Clair Dahl MD Primary Care Provide r, Attending Provider Active Start: June 22, 2023 End: June 22, 2023 Team Status: Inactive Member Role Status Dates Clair Dahl MD Primary Care Provider Active Start: July 03, 2023 End: July 03, 2023Tuan Gonzalez DOAttending ProviderActiveStart: July 03, 2023 End: July 03, 2023 Team Status: Active Member Role Status Dates Clair Dahl MD Primary Care Provider Active Start: July 03, 2023 Tuan Gonzalez DOAttending ProviderActiveStart: July 03, 2023 Team Status: Inactive Member Role Status Dates Clair Dahl MD Primary Care Provider Active Start: August 28, 2023 End: August 28, 2023Tuan Gonzalez DOAttending ProviderActiveStart: August 28, 2023 End: August 28, 2023Team MemberRelationshipSpecialtyStart DateEnd Date Clair Dahl MD [address] [place] [facility] [address] PCP - GeneralFamily Fjsaelpf87/16/21Team MemberRelationshipSpecialtyStart Date End Date Clair Dahl MD [address] [facility] [place] [address] PCP - GeneralFamily Medicine10/11/23Team MemberRelationshipSpecialtyStart DateEnd Date Clair Dahl MD [address] [facility] [place] [address] PCP - GeneralFamily Medicine10/11/23Team MemberRelationshipSpecialtyStart DateEnd Date Clair Dahl MD [address] [facility] [place] [address] PCP - GeneralFamily Medicine10/11/23Team MemberRelationshipSpecialtyStart DateEnd Date Clair Dahl MD [address] [facility] [place] [address] PCP - GeneralFamily Medicine10/11/23Team MemberRelationshipSpecialtyStart [place] [address] [place] [address], [place] [address] PCP - Generalmily Lwzmynjh58/16/21Team MemberRelationshipSpecialtyStart Date End Date Clair Dahl MD [address] [place] [address], [place] [address] PCP - Generalmily Zqlrdscx97/16/21Team MemberRelationshipSpecialtyStart Date End Date Clair Dahl MD [address] [place] [address], [place] [id number] [facility] Gbbvjxca63/16/21 Team Status: Inactive Member Role Status Dates [...] May 23, 2024 End: May 23, 2024 Team Status: Active Member Role Status Dates Clair Dahl MD Primary Care Provide r, Attending Provider Active Start: May 28, 2024 Team Status: Active Member Role Status Dates Clair Dahl MD Primary Care Provide r, Attending Provider Active Start: May 29, 2024 Team Status: Inactive Member Role Status Dates Clair Dahl MD Primary Care Provide r, Attending Provider Active Start: July 14, 2024 End: July 14, 2024Team MemberRelationshipSpecialtyStart DateEnd Date Clair Dahl MD [address] [place] [address] [place] [address] PCP - GeneralFamily Oxnfdwss86/16/21Team MemberRelationshipSpecialtyStart Date End Date Clair Dahl MD [address] [place] [address] PCP - [place] [facility]Te MemberRelationshipSpecialtyStart Date End Date Clair Dahl MD [address] [place] [id number] PCP - [facility]02/17/21Te MemberRelationshipSpecialtyStart Date End Date Clair Dahl MD [address] [place] [id number] PCP - [facility]02/17/21 Reason for Visit (unrecogniz ed section and content) ReasonCommentsBack PainPatient has low right back pain that is predominately in the middle of back that travels to the right hip and the top of the right thigh stopping at the right knee. Sometimes the pain is on the left.Patient has numbness, tingling and spasms. Patient uses a walker and cane to get around SpecialtyDiagnoses / ProceduresReferred By ContactReferred To Contact Neurosurgery Diagnoses Lumbar radiculopathy Clair Dahl MD [address] [place] [address] Edgar Dhaliwal MD [facility] [place] [address] Referral IDStatusReasonStart DateExpiration DateVisits RequestedVisits [id number]/16/202112/[id number] Lumbar ReasonCommentsPatient EducationReasonCommentsPre-op ExamMinimal invasive back surgery on a discAbnormal ECGPer Daylin Ernandez CNPSpecialtyDiagnoses / ProceduresReferred By ContactReferred To ContactCardiology Diagnoses Pre-op testing Daylin Ernandez, SUSANNE [address] [place] [address] [facility] [address] [facility] [place] [address] Referral IDStatusReasonStart DateExpiration DateVisits RequestedVisits [id number]/9/20225/[id number] Heart Failure SpecialtyDiagnoses / ProceduresReferred By ContactReferred To ContactCardiology Diagnoses Chronic systolic HF (heart failure) (HCC) Vijay Acuna MD [address] [place] [address] [employer] CNS [address] [place] [address] Referral IDStatusReasonStbayside DateExpiration DateVisits RequestedVisits [id number]/4/20225/4/[id number]-sp9 week/review SPECT/states This is the best I have felt in a long time. ReasonComments Congestive Heart FailureReasonOnset DateCommentsMedication Uiizdy7309/01/2021 ReasonCommentsFollow-up4 wk post [facility] f/u--fatigueReasonCommentsFollow-up6 wk review ECHOReasonCommentsFollow-upPatient presents here today for follow up after drier and pulverizer tender visit and discuss surgery.ReasonCommentsWound CheckReason CommentsPost-opPatient presents here today for post op 2 week right L2-3 minimally invasive hemilaminectomy, foraminotomy, disectomy,ReasonComments Post-opL2-3 MIS Nuha/Lami/disecomy. She has an ache of a 4 in her back.Reason Onset DateCommentsMedication Rjbuuh5704/17/2022ReasonCommentsFollow-upS/P MIS l2-3 nuha/lami on 01/13/22. Patient reports she is achey, its not as bad as before but itsstill there . Just completed 6 weeks of PT and she feels it helped with strength but not with removing the ache . Unable to walk very far before the ache beings and she has to sit for several hours before it subsides.Reason CommentsFollow-upPatient presents here for follow up after MRI.ReasonComments Follow-up6 mo/no cardiac concerns todayReasonCommentsFollow-upFollow up after scoliReasonCommentsWound CheckDressing check trial SCS, Dayana Gould check SCS ReasonCommentsPost-opPatient presents today for a trial lead pull after scs insertion on 08/01/22 [facility]. Patient reportsshe is doing pretty good and is ready to have them out so she can shower.ReasonCommentsPost-opS/P spinal cord stimulator insertion on 08/24/22 [facility]. Patient still has intense pain under her left shoulder blade. Patient does not have much pain at the incision site. ReasonCommentsPost-opPatient presents today for a post op of perm SCS on 08/24/22. Patient states that she feels like itwants to pop out of skin . Patient states that if she turns up the stimulator that she gets tingles in left arm and left foot .ReasonOnset DateCommentsMedication Qpihxy7410/02/2022 ReasonCommentsPost-opPatient presents today for a post op of perm SCS 08/24/22. Patient states that she limping with paindown her left leg especially when she turns up the device. Patient states that she is still having severe nerve pain. ReasonOnset DateCommentsMedication Kcrfac0311/01/2022ReasonCommentsFollow-upStatus post insertion of spinal cord stimulatorReasonCommentsPost-opPatient presents today for a post op of SCS. Patient states that she feels tingles in her left arm and leg.ReasonCommentsMedication RefillSpecialtyDiagnoses / Procedures Referred By ContactReferred To ContactNeurology Diagnoses Ellison sign present Numbness and tingling in left arm Caroline Carrion PA-C [address] [facility] [address] [place] [address] Vikram Fowler MD [address] [place] [address] Referral IDStatusReasonStart DateExpiration DateVisits RequestedVisits [id number]/11/202310/10/311064FbrwbwRtmkq DateCommentsMedication Yyfhbw2405/16/2023easonOnset DateCommentsMedication [id number] CommentsFollow-up1 yr chest pressure when walking/Anxiety/SOB/sometimes feels like someone is squeezing heartReasonOnset DateCommentsMedication Refill 4ReasonOnset DateCommentsMedication Glaara924ReasonComments Plantar FasciitisPF / SX talkReasonCommentsPlantar Wullrredi6se F/U PFReason CommentsFollow-upLt pf injReasonCommentsFollow-up2WK LT INJ 3ReasonOnset Date CommentsMedication Zmuafa8104/16/2024ReasonOnset DateCommentsMedication Refill 09/15/2024ReasonOnset DateCommentsMedication Axjhgl5909/16/2024ReasonComments Follow-upC/o dizziness, sob, fast HR, feet swelling x2 months Scheduled Active and Recently Administ ered Medications (unrecognized section and content) Medication Order//01/2022 clindamycin (CLEOCIN) IVPB 900 mg (premix) (COMPLETED) 900 mg, Intravenous, at 100 mL/hr, Once, On Sun01/13/22 at 0700, For 1 dose, Pre-Procedure, Administer prior to incision., Indication (PRE PROCEDURE): pre procedure * 0825 (Given - Provider: NANI Mclean) * 0855 (Stopped - Provider: NANI Mclean) lidocaine 10 mg/mL (1 %) injection 0.2 mL 0.2 mL, Intradermal, Once, On Sun01/13/22 at 0700, For 1 dose, Pre-Procedure, Around site prior toIV insertion * 0700 (Due) Medication Order lactated Ringers infusion 100 mL/hr, Intravenous, Continuous, Starting on Sun01/13/22 at 1115, PACU (only) * 1115 (Due) sodium chloride 0.9% (NS) 75 mL/hr, Intravenous, Continuous, Starting on Sun01/13/22 at 0700, Pre-Procedure * 0643 (New Bag - Provider: Lissett Art RN) * 0754 (Paused - Provider: NANI Mclean - Comment: Switch to gravity) * 0755 (Restarted - Provider: NANI Mclean) * 0934 (Stopped - Provider: NANI Mclean) Medication Order fentaNYL (SUBLIMAZE) injection 25 mcg 25 mcg, [...] needed, Starting on Sun01/13/22 at 0854, Intra-Procedure * 0854 (Given - Provider: Edgar Dhaliwal MD - Comment: surgical site) [...] needed, Starting on Sun01/13/22 at 1003, Intra-Procedure * 1003 (Given - Provider: Edgar Dhaliwal MD - Comment: Back) naloxone [...] needed, Starting on Sun01/13/22 at 0854, Intra-Procedure * 0854 (Given - Provider: Edgar Dhaliwal MD) thrombin (recombinant) 10,000 Units, gelatin adsorbable (GELFOAM) 100 cm 1 each topical (CANCELED) As needed, Starting on Sun01/13/22 at 0854, Intra-Procedure * 0854 (Given - Provider: Edgar Dhaliwal MD) Order Group 1: Notify Anesthesiologist (CANCELED) STAT, [...] (only)
Call a code first, then administer naloxonedose undiluted IV Push over 30 seconds.
Medication Order// clindamycin (CLEOCIN) IVPB 900 mg (premix) (COMPLETED) 900 mg, Intravenous, at 100 mL/hr, Once, On Sun08/01/22 at 0830, For 1 dose, Pre-Procedure, Administer prior to incision., Indication (PRE PROCEDURE): pre procedure * 0926 (Given - Provider: NANI Ashby) * 0941 (Stopped - Provider: NANI Ashby) lidocaine 10 mg/mL (1 %) injection 0.2 mL 0.2 mL, Intradermal, Once, On Sun08/01/22 at 0830, For 1 dose, Pre-Procedure, Around site prior to IV insertion * 0830 (Due) Medication Order/ lactated Ringers infusion 100 mL/hr, Intravenous, Continuous, Starting on Sun08/01/22 at 1045, PACU (only) * 1045 (Due) sodium chloride 0.9% (NS) 75 mL/hr, Intravenous, Continuous, Starting on Sun08/01/22 at 0830, Pre-Procedure * 0840 (New Bag - Provider: Samantha Olmstead, DENEEN) * 0900 (Continued by Anesthesia - Provider: NANI Ashby) * 0928 (Paused - Provider: NANI Ashby - Comment: Switch to gravity) * 0929 (Restarted - Provider: NANI Ashby) * 1036 (Stopped - Provider: Eunice Domínguez RN) Medication Order07/30//// HYDROmorphone (DILAUDID) injection 0.5 mg 0.5 mg, [...] needed, Starting on Sun08/01/22 at 0911, Intra-Procedure * 0911 (Given - Provider: Edgar Dhaliwal MD) meperidine (PF) (DEMEROL) injection [...] needed, Starting on Sun08/01/22 at 0911, Intra-Procedure * 0911 (Given - Provider: Edgar Dhaliwal MD) Order Group 1: Notify Anesthesiologist (CANCELED) STAT, [...] dose undiluted IV Push over 30 seconds.
Medication Order// clindamycin (CLEOCIN) IVPB 900 mg (premix) (COMPLETED) 900 mg, Intravenous, at 100 mL/hr, Once, On Christina 08/24/22 at 1015, For 1 dose, Pre-Procedure, Administer prior to incision., Indication (PRE PROCEDURE): pre procedure * 1129 (Given - Provider: Mike Fitzgerald CRNA) clindamycin (CLEOCIN) IVPB 900 mg (premix) (COMPLETED) 900 mg, Intravenous, at 100 mL/hr, Every 8 hours, First dose on Christina 08/24/22 at 1900, For 2 doses, Starting 8 hours after pre-procedure dose x 2 doses., Indication (POST PROCEDURE): Neurology * 2025 (New Bag - Provider: Fang Cannon RN) * 2055 (Stopped - Provider: Fang Cannon RN) * 040 (New Bag - Provider: Dave Colin RN) * 0431 (Stopped - Provider: Caroline Barlow, DENEEN) cyclobenzaprine (FLEXERIL) tablet 10 mg 10 mg, Oral, Every 8 hours, First dose on Christina 08/24/22 at 1600 * 1520 (Given - Provider: Twin Akers RN) * 2310 (Given - Provider: Fang Cannon RN) * 0827 (Given - Provider: Caroline Barlow, DENEEN) senna-docusate (SENNA-S) 8.6-50 mg per tablet 2 tablet 2 tablet, Oral, 2 times daily, First dose on Christina 08/24/22 at 2100, [] Hold for loose stools. Do Not Crush or Chew if administering orally due to bitter taste. May be crushed if given via tube. * 2022 (Given - Provider: Fang Cannon RN) * 0827 (Given - Provider: Caroline Barlow, RN) Medication Order// lactated Ringers infusion 100 mL/hr, Intravenous, Continuous, Starting on Christina 08/24/22 at 1345, PACU (only) * 1445 (New Bag - Provider: Twin Akers RN) * 0546 (New Bag - Provider: Fang Cannon RN) * 0547 (Rate/Dose Verify - Provider: Caroline Barlow RN) * 0838 (Stopped - Provider: Caroline Barlow RN) * 1200 (Stopped - Provider: Caroline Barlow RN) sodium chloride 0.9% (NS) 75 mL/hr, Intravenous, Continuous, Starting on Christina 08/24/22 at 1015, Pre-Procedure * 1011 (New Bag - Provider: Lissett Art RN) * 1110 (Anesthesia Volume Adjustment - Provider: Mike Fitzgerald CRNA) * 1423 (New Bag - Provider: Estefania Malhotra RN) * 1200 (Stopped - Provider: Caroline Barlow RN) sodium chloride 0.9% (NS) 75 mL/hr, Intravenous, Continuous, Starting on Christina 08/24/22 at 1545 * 1447 (New Bag - Provider: Twin Akers RN) * 1450 (Rate/Dose Change - Provider: Fang Cannon RN) * 202 (Stopped - Provider: Fang Cannon RN) * 1200 (Stopped - Provider: Caroline Barlow RN) Medication Order/ acetaminophen (TYLENOL) tablet 650 mg 650 mg, [...] more than 100 mcg while in PACU. * 1333 (Given - Provider: Estefania Malhotra RN) * 1342 (Given - Provider: Estefania Malhotra RN) HYDROmorphone [...] [] May use IV for breakthrough pain orif unable to tolerate oral route. * 1520 (Given - Provider: Twin Akers RN) * 1844 (Given - Provider: Twin Akers RN) HYDROmorphone (DILAUDID) injection 0.5 mg (CANCELED) 0.5 mg, Intravenous, Every 10 min PRN, Pain, Starting on Christina 08/24/22 at 1257, For 6 doses, PACU (only), Give if fentanyl not effective or not ordered. Do not give more than 3 mg total. * 1358 (Given - Provider: Estefania Mlahotra RN) lidocaine 1% (PF) (XYLOCAINE-MPF) 20 mL, BUPivacaine (PF) (MARCAINE) 0.5 % (5 mg/mL) 20 mL injection (CANCELED) As needed, Starting on Christina 08/24/22 at 1201, Intra-Procedure * 1201 (Given - Provider: Edgar Dhaliwal MD) [...] 2 minutes until respiratory rate is 10 orgreater. naloxone (NARCAN) injection 0.4 mg(Linked Group 1) [...] or patient requires dose reduction, call physician. * 1727 (Given - Provider: Twin Akers RN) * 2200 (Given - Provider: Fang Cannon RN) * 0207 (Given - Provider: Fang Cannon RN) * 0545 (Given - Provider: Fang Cannon RN) sodium chloride (NS) 0.9 % irrigation solution (CANCELED) As needed, Starting on Christina 08/24/22 at 1235, Intra-Procedure * 1235 (Given - Provider: Edgar Dhaliwal MD) thrombin (recombinant) 10,000 Units, gelatin adsorbable (GELFOAM) 100 cm 1 each topical (CANCELED) As needed, Starting on Christina 08/24/22 at 1202, Intra-Procedure * 1202 (Given - Provider: Edgar Dhaliwal MD - Comment: Used PRN by the surgeon) traZODone (DESYREL) tablet 50 mg 50 mg, Oral, Nightly PRN, sleep, Starting on Christina 08/24/22 at 1445, [] May repeat once in 30 minutes if still awake. Order Group 1: naloxone (NARCAN) injection 0.1 [...] and content) DATE CREATED AUTHOR 06/10/2022 [facility] DATE CREATED AUTHOR AUTHOR'S ORGANIZ ATION 12/22/2023 [facility] DATE CREATED AUTHOR AUTHOR'S ORGANIZ ATION 05/11/2024 [facility] DATE CREATED AUTHOR AUTHOR'S ORGANIZ ATION 06/13/2024 [facility] DATE CREATED AUTHOR AUTHOR'S ORGANIZ ATION 07/23/2024 [facility] DATE CREATED AUTHOR AUTHOR'S ORGANIZ ATION 10/12/2024 [facility] DATE CREATED AUTHOR AUTHOR'S ORGANIZ ATION 11/14/2024 [facility] Goals (unrecognized section and content) Goals may [...] BE BASED ON THE PRIMARY CLINICAL RECORDS. [facility]. provides no warranty or guarantee of the accuracy or completeness of information in this document.
== END 2025-02-04 12:37 | disposition home or self-care (01) ==
LOC: PST 12:36
PROVIDERS: PCP Family Medicine; Visit Provider Surgery
DX: Z01.818 Encounter for other preprocedural examination (principal); L72.3 Sebaceous cyst; R22.0 Localized swelling, mass and lump, head; R52 Pain, unspecified

== ENCOUNTER 2025-02-18 17:06 | Emergency (ER) | payer MEDICARE, SELFPAY ==
--- OUTSIDE RECORDS SUMMARY | 2025-02-13 06:54 | XMS_ITS | Continuity of Care Document ---
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 Name Role Phone Estefani Em MD Primary Care Provider Provider, Outside Attending Provider Unavailable Veronica Gonzalez APRN Attending Provider Estefani Em MD Attending Provider Care Teams Patient Care Team Team Status: [...] January 18, 2025 End: January 18, 2025 Visit Care Team Team Status: Inactive Member Role/Relationship Status Megha Em MD Primary Care Provider Active Start: January 21, 2025 End: January 21, 2025Bryce Murillo ProviderActiveStart: January 21, 2025 End: January 21, 2025 Patient Care Team Team Status: Inactive Member Role/Relationship Status Megha Em MD Primary Care Provider Active Start: February 13, 2025 End: February 13, 2025Bryce Murillo ProviderActiveStart: February 13, 2025 End: February 13, 2025 Chief Complaint and Reason for Visit Chief Complaint Admit Date lump on chest January 18, 2025 1:42pm developed lump between breast January 032024 11:38am Possible Sinus Infection February 13, 2025 11:20am Reason for Visit Admit Date Folliculitis January 18, 2025 1:42pm Lipoma of anterior chest wall January 032024 1:42pm Breast abscess January 21, 2025 11:38am Class 2 obesity with body ma ss index (BMI) of 36.0 to 36.9 in adult January 21, 2025 11:38am Folliculitis January 21, 2025 11:38am Lipoma of anterior chest wall January 032024 11:38am Lumbar degenerative disc disease [facility] r 2024 11:38am Allergies, Adverse Reactions, Alerts Allergen Type Severity Reaction Last Updated Verified Status Penicillins Allergy Unknown Unknown Reaction Decembe r 2024 11:28am Yes Active prednisone Allergy Unknown rash February 13, 2025 11:28am Yes Active Social History Smoking Status Status [...] Diagnosis/Recorded Date Onset Date Status C omments Breast abscess January 21, 2025 12:38pm Unknown Acti ve Arthritis of right acromioclavicular jointJune 2023 12:30pmUnknownActive Rotator cuff syndrome of right shoulderApril 2023 12:47pmUnknownActive HematuriaMarch 2024 10:58amUnknownActiveAnxietyApril 2023 1:22pm UnknownActiveDysuriaMarch 2024 2:21pmUnknownActiveFolliculitisNovember 2024 2:37pmUnknownActiveChronic systolic heart failureApril 2023 1:22pmUnknownActiveLipoma of anterior chest wallNovember 2024 2:37pm UnknownActiveLumbar degenerative disc diseaseApril 2023 1:22pmUnknown ActiveWeight gainMarch 2024 10:58amUnknownActiveRight shoulder painApril 2023 10:59amUnknownActiveBiceps tendonitis on rightApril 2023 12:45pmUnknownActiveBronchitisMay 2024 7:18amUnknownActiveHTN (hypertension)May 23, 2024 10:57amUnknownActiveClass 2 obesity with body mass index (BMI) of 36.0 to 36.9 in adultNovember 2024 12:17pmUnknown ActiveInactive/Resolved Problems Problem Diagnosis/Recorded Date Onset Date Status C omments Lumbar radiculopathy, acute February 24, 2021 10:44am Unknown Resolved Prob manjeet List clean-up per request of Phys. EHR Cmte Medications Medication Status Dose Units Route Directions Qty Days Refills S tart Date Stop Date End Date Reason(s) Instructions Adherence Sertraline 25 mg tablet Discontinued 25 MG PO Sendy ly 90 0y 2023 11:06amJuly 2023 11:32amSertraline 25 mg tablet Fnhrnznplztg50OEYADogfy602Ajts 2023 11:32amNovember 2023 12:30pm Sertraline 25 mg fwqzgiVefqllhjsyqc23BASWGovdy142Eqgayvbd 2023 12:30pm January 07, 2024 1:45pmSertraline 25 mg exxpggJyyihtxsjkqm09MQSKTpaie233 January 07, 2024 1:45pmMarch 2024 7:29amSertraline 25 mg tablet Opubybcmlpqw71TLARGvsra171Dqziz 2024 7:29amJune 2024 12:04pm Azithromycin 250 mg lxqqzxDhwrmqnalrfs3YQ.PGHXQHZ23Anb 2024 11:00pm January 18, 2025 1:43pmFor 250 mg dose pack: take 500 mg today (day 1), then 250 mg for 4 days (days 2-5) POSertraline 25 mg iscvhmTwialomkjryo40OUOFAmiui328 August 22, 2024 12:04pmSeptember 2024 8:17amAlbuterol Sulfate 90 mcg/actuation HFA aerosol ttuccwiSydrbh3SYKWBGIACQHRLHFbpke 4 hours as needed for shortness of breath or wheezing6.73September 2024 1:19pmComplies with drug therapySertraline 25 mg ctjlwzLeigyt74QHUPInqlc644Tqecyufcn 2024 8:17amComplies with drug therapyTizanidine 4 mg atwbgzIbmfug5RHDGXenlb as needed for PainDecember 2020 12:00amComplies with drug therapyHydrocodone- Acetaminophen 5-325 mg fnfcsjTwhdhkepgads5SBNTLNelmu times daily as needed for PainDecember 2020 12:00amMarch 2024 10:55amPrednisone 50 mg tablet Mwsysougzzag95CNAXHinvf219Lyqbaowb 2020 12:00amApril 2023 10:31am Sacubitril-Valsartan (Entresto) 24-26 mg zehfmmYvdonswsbwyi6WPGMUGrgviFxeoh 2023 11:00pmApril 2023 10:31amFreeTextSi tablet Orally daily; Note: Source Status: Taking; Provider: Manav Jara ( )Loratadine 10 mg sxrkgzJnedzg0LPTLFUlkorOslri 2023 11:00pmFreeTextSi tablet Orally Once a day; Note: Source Status: Taking; Provider: Manav Jara ( )Complies with drug therapyAlbuterol Sulfate 90 mcg/actuation HFA aerosol vqrrlkiQvhelsahgipo9MHISIOHMVGKOXCLityj 4 hoursApril 2023 11:00pm July 14, 2024 1:18pmFreeTextSi puff Inhalation every 4 hrs prn; Note: Source Status: Start; Refills: 0; Qty: 1 Each; Provider: Manav Wisdom Gabapentin 300 mg yroedwiJbdnyrcssoyf390USWIFoqex times dailyApril 2023 11:00pmApril 30th, 2024 12:37pmFreeTextSi capsule Orally three times daily; Note: Source Status: Taking; Provider: Manav Jara ( )Aspirin 81 mg tablet,delayed release (DR/EC)Lezkps95YXUXHaoecHojbg 2023 11:00pm FreeTextSi tablet Orally Once a day; Note: Source Status: Taking; Provider: Manav Jara ( )Complies with drug therapyMetoprolol Succinate 50 mg tablet extended release 24 znZcizkidkpyzc39PBALVwguaPpfmo 2023 11:00pm January 21, 2025 12:10pmFreeTextSi tablet Orally Once a day; Note: Source Status: Taking; Provider: Manav Jara ( )Atorvastatin 20 mg oudhhwGcdagi8HZXLBKuyhmWzaru 2023 11:00pmFreeTextSi tablet Orally Once a day; Note: Source Status: Taking; Provider: Manav Jara ( ) Complies with drug therapyBenzonatate 200 mg geofhaaRwilcduggzzc8OOTDOJjdgr times dailyApril 2023 11:00pmApril 2023 10:30amFreeTextSi capsule Orally Three times a day; Note: Source Status: Taking; Refills: 0; Qty: 30 Capsule; Provider: Manav Jara EAlprazolam 0.25 mg tabletDiscontinued0.25MG PODailyApril 2023 11:00pmApril 2023 10:44amFreeTextSi tablet Orally daily prn; Note: Source Status: Taking; Refills: 0; Qty: 30 Tablet; Pro vider: Manav Jara ESacubitril-Valsartan (Entresto) 24-26 mg timtmqShbeuz0PCXDU Twice dailyApril 2023 10:31amFreeTextSi tablet Orally daily; Note: Source Status: Taking; Provider: Manav Jara ( )Complies with drug therapySertraline 25 mg ijyzpkYqbzbkxijaps27CQTSEzbhb251Oulmb 18th, 2024 11:00pmMay 2023 11:07amSulfamethoxazole-Trimethoprim 800-160 mg tablet Rpkffdkffujc5PXPSHLtkii lxrvf024Kgiwk 2024 12:00amMarch 2024 10:50am Famotidine (Pepcid Ac) 20 mg pdubznSinmxy60LPUOPccgjChtleqap 16th, 2025 12:00am Complies with drug therapyDoxycycline Hyclate 100 mg ntlbzltYdymfbdtugmd743BSIP Twice osnqs02582Hihmadzn2024 12:00amDece2024 11:49amMetoprolol Succinate 50 mg tablet extended release 24 fvUcmnem15CXFGYqzxp dailyJanuary 21, 2025 12:10pmFreeTextSi tablet Orally Once a day; Note: Source Status: Taking; Provider: Manav Jara ( )Complies with drug therapy Semaglutide (Weight Loss) (Wegovy) 0.25 mg/0.5 mL pen injectorActive0.25MGSUBCUT every loom93Kiktyqhi2024 12:00amClass 2 obesity with body mass index (BMI) of 36.0 to 36.9 in adult Obesity, class 2 Body mass index [BMI] 36.0-36.9, adultadminister weeks 1 through 4 of therapy Complies with drug therapyAzithromycin 250 mg cnfpeoOcuhiq9WL.QESGOZR30Cwxymkxr 2024 12:00amFor 250 mg dose pack: take 500 mg today (day 1), then 250 mg for 4 days (days 2-5) POComplies with drug therapyAlbuterol Sulfate 90 mcg/actuation HFA aerosol gwmgkepXvxtnqqklbwn4YOBWSKUFNPYRZCUeaig 4 hours as needed for shortness of breath or wheezing6.70July 14, 2024 1:18pmSept2024 1:19pm Relevant Diagnostic Tests and/or Laboratory Data Laboratory Results Test Collection Date/Time Result Date/Time Result Interpretation Reference Range Result Comment Performing Site Anion Gap December 01, 2024 10:16am December 01 10:16am 15.1 BUN/Creatinine RatioSept2024 10:16amSept2024 10:16am12.7 Blood Urea NitrogenSeptember 2024 10:16amSeptab[facility]o [facility] 2024 10:16am10.0 mg/dL7.0-18.0Calcium LevelSeptember 2024 10:16amSeptember 2024 10:16am9.0 mg/dL8.5-10.1Chloride LevelSeptabrazo [facility]head campus 2024 10:16amSeptabrazo [facility] 2024 10:30ib507 mmol/Y40-676Ijmkrw Dioxide LevelSeptabrazo [facility] campus 2024 10:16amSeptabrazo [facility] campus 2024 10:16am26.4 mmol/L21.0-32.0CreatinineSeptabrazo [facility] campus 2024 10:16amSeptabrazo [facility] campus 2024 10:16am0.79 mg/dL0.55-1.02Estimated GFR ()December 01, 2024 10:16amSeptabrazo arrowhead campus 2024 10:16am>60 >=60 mL/min/1.73m 2Estimated GFR (Non- AmericanSeptember 2024 10:16amSept2024 10:16am>60>=60 mL/min/1.73m 2Glucose LevelSeptabrazo [facility] campus 2024 10:16amSept2024 10:16am87 mg/kW21-135Eixdvqipm Level December 01, 2024 10:16amSeptabrazo [facility] campus 2024 10:16am4.5 mmol/L3.5-5.1Sodium LevelSeptabrazo [facility]head campus 2024 10:16amSeptabrazo [facility]head campus 2024 10:39al820 mmol/F607-251 Vital Signs Vital Reading Result Reference Range Collection Date/Time Height 70 [in_i] January 18, 2025 1:36ijZcqkey019.93 kgNovabrazo arrowhead campus 2024 1:44pmBody Hnctxfdxvha03.1 [degF]97.6-99.0Novab[facility]o [facility] 2024 1:44pmHeart Rate80 /hii00-961 January 18, 2025 1:44pmRespiratory rate16 /obq63-42Ocaeoere 2024 1:44pm Oxygen saturation by Pulse %95-100[facility] th, 2025 1:44pmBP Rzhziiis685 mm[Hg]100-140January 18, 2025 1:44pmBP Nbsxtkzpo98 mm[Hg]60-100 January 18, 2025 1:44pmBMI (Body Mass Index)37.3 kg/q0MmoqkzhdJanuary 18, 2025 1:40jkRfurkv90 [in_i]January 21, 2025 11:72iwZfzbaj495.11 [facility]20[facility] 11:39amHeart Rate80 /esu01-295ZzsnfcycJanuary 21, 2025 11:39amBP Xkanlcdt948 mm[Hg]100-140January 21, 2025 11:39amBP Xorhdoaqq75 mm[Hg]60-100January 21, 2025 11:39amBMI (Body Mass Index)36.7 kg/c1PbvyujtwJanuary 21, 2025 11:39am Duguox45 [in_i]February 13, 2025 11:45rkTbjhqj704.75 kgDeceabrazo central campus 2024 11:25amBody Hbctidubvmp59.6 [degF]97.6-99.0Deceabrazo central campus 2024 11:25amHeart Rate 84 /ejw03-574Xhnlxvcj 12th, 2025 11:25amBP Ditrkzyp45 mm[Hg]100-140Dece2024 11:25amBP Uauicmrzm43 mm[Hg]60-100Deceab[facility] 2024 11:25amBMI (Body Mass Index)36.3 kg/m0Dnzgdysm 2024 11:25am Advance Directives Advance Directive Response Recorded Date/ Time Advance Directives No February 8:11am Insurance Providers Guarantor Verito Brennan Address [address] [facility] [address]Kkcjzci Info.Home Phone: Coverage Status Update:2024 Payer Group Member ID Coverage Type Subscriber Relationship to Subscriber Effective Date Expiration Date MMO Id: [id number] Missler Id: [id number] [address] [facility] [address] Home Phone: Email: [email or web address] MCR Adv PFFS [id number] Anu Id: [id number] [address] [facility] [address] Home Phone: Email: [email or web address] Id: [id number] Anu Id: [id number] [address] [facility] [address] Home Phone: Email: [email or web address] Encounters Encounter Location(s) Arrival/Admit Date Discharge/Departure Date Discharge/Departure Disposition Provider(s) Non-patient / Non-visit -[facility] Professiondavid [place]ilar [place] December 01, 2024 11:16am Outside ProviderDeparted Physician/Provider Office Visit-[facility] January 18, 2025 1:42pmNov2024 2:17pmDischarged to home care or self care (routine discharge)Tahmina Bethea APRNDeparted Physician/Provider [facility] 11:38amNovember 2024 12:14pmDischarged to home care or self care (routine discharge)GREGORIA Murilloeparted Physician/Provider Office Visit-[facility] February 13, 2025 11:20amDecember 2024 11:53amDischarged to home care or self care (routine discharge)Estefani Em MD Recent Diagnosis Onset Date Admit Date Folliculitis Unknown January 18 025 1:42pm Lipoma of anterior chest wall Unknown No vem2024 1:42pm Breast abscess Unknown January 21 11:38am Class 2 obesity with body ma ss index (BMI) of 36.0 to 36.9 in adult Unknown January 21, 2025 11:38am Folliculitis Unknown January 21 11:38am Lipoma of anterior chest wall Unknown No vem2024 11:38am Lumbar degenerative disc disease Unknown January 21, 2025 11:38am Assessments Diagnosis Onset Date Resolution Status Admit Date Folliculitis acuteJanuary 185 1:42pmLipoma of anterior chest wallacuteJanuary 18, 2025 1:42pmBreast abscessacuteCentral [facility]20[facility] 11:38amClass 2 obesity with body mass index (BMI) of 36.0 to 36.9 in adultacuteJanuary 21, 2025 11:38am FolliculitisacuteJanuary 21, 2025 11:38amLipoma of anterior chest wallacute January 21, 2025 11:38amLumbar degenerative disc diseaseacuteNov2024 11:38am Plan of Treatment Author Veronica Gonzalez [facility] 2024 2:38pmDiscussed with patient differential of suspicion for [...] if significantly worsening or new onset fevers. Author Estefani Em [facility] 2024 12:41pmWegovy sent to pharmacy. Followup in 3 months. Healthy diet and exercise. Improving w doxycycline. Likely needs lanced. Already referred to General Surgery. Encouraged her to return their call this afternoon and make an appt. Discussed chronic back pain and limited options for regular high intensity exercise. Form completed for taxes. Future Tests Future scheduled test information is unavailable Pending Tests Pending diagnostic test information is unavailable Future Visits Future appointment information is unavailable Future Procedures Future procedure information is unavailable Future Medications Future medication information is unavailable Patient Instructions Patient instructions are unavailable
[2025-02-18] VITALS (22 sets, daily range): BP systolic 111–133; BP diastolic 74–89; PULSE 94–123; TEMP 37; O2SAT 90–99; BMI 36.2
--- NOTE | 2025-02-18 17:21 | XR_ITS ---
[place] [id number] Patient Name: BORIS LIU MRN: [id number] date: 1965 Sex: F Assigned Patient Location: ER Current Patient Location: ED.MAIN Accession/Order Number: [id number] Exam Date: 02/18/2025 17:40 Report Date: 02/18/2025 18:04 At the request of: ELVIA BORRERO Procedure: XR chest 1V XR chest 1V 02/18/2025 5:43 PM SIGNS AND SYMPTOMS: ^cough, SOB PROTOCOL: Frontal radiograph of the chest COMPARISON: 07/21/2024 FINDINGS: The trachea is midline. The heart and mediastinal structures are within normal limits. The lung parenchyma is clear. The bony thorax is intact. A spinal cord stimulator is present posteriorly. XR/XR chest 1V IMPRESSION: No acute cardiopulmonary pathology. Impression dictated by: Herberth Lucas M.D. 02/18/2025 6:04 PM Dictation Location: [place] [address] Electronically authenticated by: [id number] Y Date: 02/18/2025 18:04
--- NOTE | 2025-02-18 17:21 | ECG_ITS ---
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 Measurements Intervals [place] Rate: 118 P: -[id number] NC: -[id number] QRS: 40 QRSD: 150 T: 71 QT: 386 QTc: 456 Interpretive Statements Likely sinus tachycardia 2550 Left bundle branch block ARTIFACT PRESENT precludes accurate interpretation 9150 abnormal ECG Compared to ECG 01/03/2022 06:06:36 Left bundle-branch block now present Sinus rhythm no longer present Possible ischemia no longer present Electronically Signed On 02-18-2025 20:59:09 EST by ANDREWS HERNANDEZ M.D.
--- NOTE | 2025-02-18 17:22 | ED.SOB1 ---
HPI - SOB/Dyspnea General Chief Complaint: Shortness of Breath/Dyspnea Stated Complaint: SOB Time Seen by Provider: 02/18/25 17:13 Source: patient Mode of arrival: Wheelchair History of Present Illness HPI Narrative: 60 year old female presents to the ED for cough, SOB, congestion. Onset was one week ago. Her symptoms became worse yesterday. Denies fever, edema, N/V. Reports diarrhea. She completed a Z-garth that was prescribed by her pcp. She is a smoker. She has hx CHF. She has an albuterol inhaler at home. Related Data Home Medications ?Medication ?Instructions ?Recorded ?Confirmed albuterol sulfate 90 mcg/actuation 2 inh inhalation Q4H PRN shortness 10/21/23 02/04/25 aerosol inhaler (Ventolin HFA) of breath or wheezing aspirin 81 mg chewable tablet 81 mg PO DAILY 10/21/23 02/04/25 (Issac Chewable Low Dose Aspirin) atorvastatin 20 mg tablet 20 mg PO DAILY 10/21/23 02/04/25 famotidine 20 mg tablet 20 mg PO DAILY 02/04/25 02/04/25 loratadine 10 mg tablet 10 mg PO DAILY 02/04/25 02/04/25 metoprolol succinate 50 mg 50 mg PO DAILY 02/04/25 02/04/25 tablet,extended release 24 hr sacubitril 49 mg-valsartan 51 mg 1 tab PO DAILY 02/04/25 02/04/25 tablet sertraline 25 mg tablet 25 mg PO Q24H 02/04/25 02/04/25 tizanidine 4 mg capsule 8 mg PO BID PRN muscle spasticity 02/04/25 02/04/25 Previous Rx's ?Medication ?Instructions ?Recorded benzonatate 100 mg capsule 100 mg PO TID PRN cough #20 caps 02/18/25 dexamethasone 6 mg tablet 6 mg PO DAILY #7 tabs 02/18/25 guaifenesin 600 mg tablet, 600 mg PO BID PRN congestion #12 02/18/25 extended release 12 hr (Mucinex) tabs Allergies Allergy/AdvReac Type Severity Reaction Status Date / Time Penicillins Allergy Mild Rash Verified 02/04/25 12:33 prednisone Allergy Mild Rash Verified 02/04/25 12:33 Review of Systems ROS Constitutional Reports: fatigue; Denies: fever or chills Cardiovascular Denies: chest pain Respiratory Reports: shortness of breath, cough and wheezing Gastrointestinal Reports: diarrhea; Denies: abdominal pain, nausea or vomiting Musculoskeletal Denies: back pain or neck pain Neurological Denies: headache PFSH PFSH Medical History (Updated 02/18/25 @ 20:08 by Mary Gonsalez) Epidermal cyst ?L72.0 - Epidermal cyst (ICD-10) Endometriosis ?N80.9 - Endometriosis, unspecified (ICD-10) Decreased cardiac ejection fraction ?R93.1 - Abnormal findings on diagnostic imaging of heart and coronary circulation (ICD-10) Arthritis ?M19.90 - Unspecified osteoarthritis, unspecified site (ICD-10) DDD (degenerative disc disease) Back pain ?M54.9 - Dorsalgia, unspecified (ICD-10) Anxiety ?F41.9 - Anxiety disorder, unspecified (ICD-10) Panic attacks ?F41.0 - Panic disorder [episodic paroxysmal anxiety] (ICD-10) GERD (gastroesophageal reflux disease) ?K21.9 - Gastro-esophageal reflux disease without esophagitis (ICD-10) High cholesterol ?E78.00 - Pure hypercholesterolemia, unspecified (ICD-10) Hypertension ?I10 - Essential (primary) hypertension (ICD-10) Congestive heart failure ?I50.9 - Heart failure, unspecified (ICD-10) Dyspnea on exertion ?R06.09 - Other forms of dyspnea (ICD-10) LBBB (left bundle branch block) ?I44.7 - Left bundle-branch block, unspecified (ICD-10) Myocardial infarction ?I21.9 - Acute myocardial infarction, unspecified (ICD-10) Surgical History (Updated 02/04/25 @ 12:47 by Maye Ramos NP) History of lumbar laminectomy ?Z98.890 - Other specified postprocedural states (ICD-10) History of lumbosacral spine surgery ?Z98.890 - Other specified postprocedural states (ICD-10) History of hemorrhoidectomy ?Z98.890 - Other specified postprocedural states (ICD-10) History of foot surgery ?Z98.890 - Other specified postprocedural states (ICD-10) S/P cystoscopy ?Z98.890 - Other specified postprocedural states (ICD-10) History of colonoscopy ?Z98.890 - Other specified postprocedural states (ICD-10) History of cardiac catheterization ?Z98.890 - Other specified postprocedural states (ICD-10) Family History (Updated 02/04/25 @ 12:37 by Maye Ramos NP) Other Family history of diabetes mellitus Family history of heart disease Family history of hypertension Family history of myocardial infarction Family history of renal failure Family history of stroke Multiple myeloma Social History (Updated 02/04/25 @ 12:36 by Maye Ramos NP) Within the past year, how often did you have a drink containing alcohol: monthly or less Smoking status: Current some day smoker Highest level of school completed/degree received: high school graduate Little interest or pleasure in doing things: not at all Feeling down, depressed, or hopeless: not at all Exam Constitutional Vital Signs, click to edit/add: Last Vital Signs Temp 98.6 F 02/18/25 17:10 Pulse 106 H 02/18/25 20:00 Resp 18 02/18/25 20:00 BP 111/74 02/18/25 18:25 Pulse Ox 91 L 02/18/25 20:00 O2 Del Method Room Air 02/18/25 19:18 Common normals: oriented x3 and alert General appearance: cooperative HENMT Common normals: external ears normal, moist oral mucous membranes and oropharynx normal Eye Common normals: conjunctivae normal and no scleral icterus Neck & C-Spine Common normals: supple Chest Chest: symmetrical chest wall rise Respiratory Effort & inspection: able to speak in complete sentences, tachypneic, labored, actively coughing and audible wheezes; no stridor and no tracheal deviation Cardio Common normals: regular rhythm Rate: tachycardic Extremity Common normals: no clubbing, cyanosis or edema Neuro Common normals: oriented x3, moves all extremities and no focal motor deficits Sensorium/orientation: awake and alert Course Vital Signs Vital signs: Vital Signs Temperature 98.6 F 02/18/25 17:10 Pulse Rate 119 H 02/18/25 17:10 Respiratory Rate 22 H 02/18/25 17:10 Blood Pressure 133/89 02/18/25 17:10 Pulse Oximetry 95 02/18/25 17:10 Oxygen Delivery Method Room Air 02/18/25 17:10 Temperature 98.6 F 02/18/25 17:10 Pulse Rate 106 H 02/18/25 20:00 Respiratory Rate 18 02/18/25 20:00 Blood Pressure 111/74 02/18/25 18:25 Pulse Oximetry 91 L 02/18/25 20:00 Oxygen Delivery Method Room Air 02/18/25 19:18 MDM - SOB/Dyspnea MDM Narrative Medical decision making narrative: Covid-19 and influenza were negative. Chest x-ray and CTA of the chest were negative for acute findings. Findings were discussed. She was given solumedrol and Xopenex x2 here with improvement. She reported she felt comfortable being discharged home. She declined admission. Follow up with pcp for a recheck, further evaluation and treatment. Return to the ED if symptoms worsen. She has an albuterol inhaler at home. Differential Diagnosis Differential diagnosis: Likely acute exacerbation of chronic obstructive airways disease, congestive heart failure, community acquired pneumonia and pulmonary embolism Medical Records Attestation: I reviewed the patient's medical records. Lab Data Attestation: I reviewed the patient's lab results. Labs: Lab Results 02/18/25 02/18/25 Range/Units 17:20 17:46 WBC 9.5 (4.0-11.0) 10^3/uL RBC 4.80 (4.20-5.40) 10^6/uL Hgb 14.7 (12.0-16.0) g/dL Hct 43.7 (36.0-48.0) % MCV 91.0 (81.0-99.0) fL MCH 30.6 (26.7-34.0) pg MCHC 33.6 (29.9-35.2) g/dL RDW 12.8 (11.0-15.0) % Plt Count 219 (150-450) 10^3/uL MPV 11.1 (9.5-13.5) fL Neut % (Auto) 63.2 (43.0-75.0) % Lymph % (Auto) 24.3 (20.5-60.0) % [place] % (Auto) 8.4 (1.7-12.0) % Eos % (Auto) 3.7 (0.9-7.0) % Baso % (Auto) 0.2 (0.2-2.0) % Neut # (Auto) 6.0 (1.4-6.5) 10^3/uL Lymph # (Auto) 2.3 (1.2-3.8) 10^3/uL [place] # (Auto) 0.8 (0.3-0.8) 10^3/uL Eos # (Auto) 0.4 (0.0-0.7) 10^3/uL Baso # (Auto) 0.0 (0.0-0.1) 10^3/uL Abs Immat Gran (auto) 0.02 (0.00-0.03) 10^3/uL Imm/Tot Granulo (auto) 0.2 (0.0-0.5) % Sodium 140 (136-145) mmol/L Potassium 4.2 (3.5-5.1) mmol/L Chloride 105 (98-107) mmol/L Carbon Dioxide 28.5 (21.0-32.0) mmol/L Anion Gap 10.7 BUN 9.0 (7.0-18.0) mg/dL Creatinine 0.73 (0.55-1.02) mg/dL Est GFR ( Amer) >60 (>=60 mL/min/1.73m^2) Est GFR (Non-Af Amer) >60 (>=60 mL/min/1.73m^2) BUN/Creatinine Ratio 12.3 Glucose 69 L (74-106) mg/dL Calcium 9.1 (8.5-10.1) mg/dL Total Bilirubin 0.2 (0.2-1.0) mg/dL AST 18 (15-37) U/L ALT 34 (14-59) U/L Alkaline Phosphatase 138 H (46-116) U/L NT-Pro-B Natriuret Pep 701.0 (<=900.0) pg/mL Total Protein 8.0 (6.4-8.2) g/dL Albumin 4.0 (3.4-5.0) g/dL Globulin 4.0 g/dL Albumin/Globulin Ratio 1.0 Influenza Type A Ag Negative Influenza Type B Ag Negative SARS-CoV-2 Ag (CV2AG) Negative (NEGATIVE) Imaging Data Chest x-ray: Attestation: I have reviewed the pertinent imaging results. Radiologist's impression: ITS Impressions Chest X-Ray 02/18/25 17:21 IMPRESSION: No acute cardiopulmonary pathology. Impression dictated by: Herberth Lucas M.D. 02/18/2025 6:04 PM Dictation Location: [place] [address] Electronically authenticated by: [id number] Y Date: 02/18/2025 18:04 Chest CTA 02/18/25 18:56 IMPRESSION: There is no evidence of pulmonary embolism. No acute cardiopulmonary pathology. Impression dictated by: Herberth Lucas M.D. 02/18/2025 7:43 PM Dictation Location: [place] [address] Electronically authenticated by: [id number] Y Date: 02/18/2025 19:43 ECG Data Attestation: ?I have reviewed the pertinent ECG results. (EKG was reviewed by the attending physician. It showed tachycardia at a rate of 118.) Interpretation: Measurements Intervals [place] Rate: 118 P: -52860 W[place]: -75660 QRS: 40 QRSD: 150 T: 71 QT: 386 QTc: 456 Interpretive Statements 1921 Undetermined regular rhythm (tachycardia) 2550 Left bundle branch block 0102 ARTIFACT PRESENT 9150 abnormal ECG No previous ECG available for comparison Discharge Plan Discharge Chief Complaint: Shortness of Breath/Dyspnea Clinical Impression: Upper respiratory infection, viral Patient Disposition: Home, Self-Care Time of Disposition Decision: 20:07 Condition: Good Mode of Transportation: Private Vehicle Prescriptions / Home Meds: New dexamethasone 6 mg tablet 6 mg PO DAILY Qty: 7 0RF benzonatate 100 mg capsule 100 mg PO TID PRN (Reason: cough) Qty: 20 0RF guaifenesin [Mucinex] 600 mg tablet extended release 12hr 600 mg PO BID PRN (Reason: congestion) Qty: 12 0RF No Action albuterol sulfate [Ventolin HFA] 90 mcg/actuation HFA aerosol inhaler 2 inh INHALATION Q4H PRN (Reason: shortness of breath or wheezing) atorvastatin 20 mg tablet 20 mg PO DAILY aspirin [Issac Chewable Aspirin] 81 mg tablet,chewable 81 mg PO DAILY sertraline 25 mg tablet 25 mg PO Q24H metoprolol succinate 50 mg tablet extended release 24 hr 50 mg PO DAILY sacubitril-valsartan 49-51 mg tablet 1 tab PO DAILY famotidine 20 mg tablet 20 mg PO DAILY loratadine 10 mg tablet 10 mg PO DAILY tizanidine 4 mg capsule 8 mg PO BID PRN (Reason: muscle spasticity) Print Language: Burmese Instructions: Upper Respiratory Infection (ED), Acute Bronchitis (ED) Referrals: Estefani Em MD [Primary Care Provider, Family Practice] - 1 week
[2025-02-18] MEDS: LEVALBUTEROL HCL 1.25 MG/3 ML VIAL NEB IH ×2 (17:32→19:18)
[2025-02-18 17:37] LABS: SARS-CoV-2 Ag NEGATIVE (NEGATIVE)
--- OUTSIDE RECORDS SUMMARY | 2025-02-18 17:39 | XMS_ITS | Continuity of Care Document ---
Author Organization [facility] Address [address] [place] [address] Phone Care Team Providers Care End Maker Name Role Phone Estefani Em MD Primary [...] January 032024 11:38am Lumbar degenerative disc disease [facility] r 2024 11:38am Allergies, Adverse Reactions, Alerts [...] 2023 11:06amJuly 2023 11:32amSertraline 25 mg tablet Zolggitxhgze15RFTNDkahd011Jxnx 2023 11:32amNovember 2023 12:30pm Sertraline 25 mg aydhdsFkbcltwrvnft42WHLTGrmaq260Pfjiwsfe 2023 12:30pm January 07, 2024 1:45pmSertraline 25 mg zecrlySefeiglxgixa00OBBSHvcyi729 January 07, 2024 1:45pmMarch 2024 7:29amSertraline 25 mg tablet Anfkiqkeyrar36VJQSPmkdj445Japxs 2024 7:29amJune 2024 12:04pm Azithromycin 250 mg cmqhyzIsbdubwirwqp1UY.WGRODBR58Rdr 2024 11:00pm January 18, 2025 1:43pmFor 250 mg dose pack: take 500 mg today (day 1), then 250 mg for 4 days (days 2-5) POSertraline 25 mg xtnpasQelzvpjvuewx07FVLJYvyug106 August 22, 2024 12:04pmSeptember 2024 8:17amAlbuterol Sulfate 90 mcg/actuation HFA aerosol nzwkgpnJyksgx2MMCULRDGSPGVNEXllto 4 hours as needed for shortness of breath or wheezing6.73September 2024 1:19pmComplies with drug therapySertraline 25 mg frzpdqFwntxp34IXFPBuokf918Fnzgapbut 2024 8:17amComplies with drug therapyTizanidine 4 mg vptunmBxqsxz0IFZTKecig as needed for PainDecember 2020 12:00amComplies with drug therapyHydrocodone- Acetaminophen 5-325 mg cgkduoMcztulnfogyo8MJCKKWxqnn times daily as needed for PainDecember 2020 12:00amMarch 2024 10:55amPrednisone 50 mg tablet Laikvsoxppfs46HCFLZjqwg066Uqkslmbn 2020 12:00amApril 2023 10:31am Sacubitril-Valsartan (Entresto) 24-26 mg rpapqgSauhkmdhhvej6QFKHAFuqieBfozv 2023 11:00pmApril 2023 10:31amFreeTextSi tablet Orally daily; Note: Source Status: Taking; Provider: Manav Jara ( )Loratadine 10 mg ooaxzxHvepkg8KGUSHWkcotByapa 2023 11:00pmFreeTextSi tablet Orally Once a day; Note: Source Status: Taking; Provider: Manav Jara ( )Complies with drug therapyAlbuterol Sulfate 90 mcg/actuation HFA aerosol sqnvkpoPkqpomtbojiu7UCHCFTQOINQIGQFjnnh 4 hoursApril 2023 11:00pm July 14, 2024 1:18pmFreeTextSi puff Inhalation every 4 hrs prn; Note: Source Status: Start; Refills: 0; Qty: 1 Each; Provider: Manav Wisdom Gabapentin 300 mg crencngUbscbzdwnxew883AFSBBabxg times dailyApril 2023 11:00pmApril 30th, 2024 12:37pmFreeTextSi capsule Orally three times daily; Note: Source Status: Taking; Provider: Manav Jara ( )Aspirin 81 mg tablet,delayed release (DR/EC)Eiuori07BACLAznxmIervr 2023 11:00pm FreeTextSi tablet Orally Once a day; Note: Source Status: Taking; Provider: Manav Jara ( )Complies with drug therapyMetoprolol Succinate 50 mg tablet extended release 24 rlSydlyiuuldma99WGZHGixsuKtlht 2023 11:00pm January 21, 2025 12:10pmFreeTextSi tablet Orally Once a day; Note: Source Status: Taking; Provider: Manav Jara ( )Atorvastatin 20 mg yudnqzJtiudn6HAHFCHbqexDtibs 2023 11:00pmFreeTextSi tablet Orally Once a day; Note: Source Status: Taking; Provider: Manav Jara ( ) Complies with drug therapyBenzonatate 200 mg ctolstuYoxrvpyvysnq1JEFYCQtekx times dailyApril 2023 11:00pmApril 2023 10:30amFreeTextSi capsule Orally Three times a day; Note: Source Status: Taking; Refills: 0; Qty: 30 Capsule; Provider: Manav Jara EAlprazolam 0.25 mg tabletDiscontinued0.25MG PODailyApril 2023 11:00pmApril 2023 10:44amFreeTextSi tablet Orally daily prn; Note: Source Status: Taking; Refills: 0; Qty: 30 Tablet; Pro vider: Manav Jara ESacubitril-Valsartan (Entresto) 24-26 mg uuxycpDojlxb6YQNDD Twice dailyApril 2023 10:31amFreeTextSi tablet Orally daily; Note: Source Status: Taking; Provider: Manav Jara ( )Complies with drug therapySertraline 25 mg athnrgHbkywjqnpjyp82CUVHQohgn931Uerhz 18th, 2024 11:00pmMay 2023 11:07amSulfamethoxazole-Trimethoprim 800-160 mg tablet Xwcrbocgwlvu9MWJDHGxxir dowjv476Djarv 2024 12:00amMarch 2024 10:50am Famotidine (Pepcid Ac) 20 mg eptqdzIwhffb31VBEMFgugsCasgnzen 16th, 2025 12:00am Complies with drug therapyDoxycycline Hyclate 100 mg yexdtzcSutmvppmxxpv329JKQX Twice rcvwk17622Dghfuihx2024 12:00amDece2024 11:49amMetoprolol Succinate 50 mg tablet extended release 24 vhXvjxiw63MBSTVdfkg dailyJanuary 21, 2025 12:10pmFreeTextSi tablet Orally Once a day; Note: Source Status: Taking; Provider: Manav Jara ( )Complies with drug therapy Semaglutide (Weight Loss) (Wegovy) 0.25 mg/0.5 mL pen injectorActive0.25MGSUBCUT every mehn06Tswwoacw2024 12:00amClass 2 obesity with body mass index (BMI) of 36.0 to 36.9 in adult Obesity, class 2 Body mass index [BMI] 36.0-36.9, adultadminister weeks 1 through 4 of therapy Complies with drug therapyAzithromycin 250 mg cwexwkSfaacv1GE.CQNYIIC94Knwiavrm 2024 12:00amFor 250 mg dose pack: take 500 mg today (day 1), then 250 mg for 4 days (days 2-5) POComplies with drug therapyAlbuterol Sulfate 90 mcg/actuation HFA aerosol okgfnwxTisnenyxsodk8YWUBMRLHAFWZXONajje 4 hours as needed for shortness of breath or wheezing6.70July 14, 2024 1:18pmSept2024 1:19pm Relevant Diagnostic Tests and/or Laboratory Data Laboratory Results Test Collection Date/Time Result Date/Time Result Interpretation Reference Range Result Comment Performing Site Anion Gap December 01, 2024 10:16am December 01 10:16am 15.1 BUN/Creatinine RatioSept2024 10:16amSept2024 10:16am12.7 Blood Urea NitrogenSeptember 2024 10:16amSeptn[facility] 2024 10:16am10.0 mg/dL7.0-18.0Calcium LevelSeptember 2024 10:16amSeptember 2024 10:16am9.0 mg/dL8.5-10.1Chloride LevelSeptnorthern cochise community [facility] 2024 10:16amSeptnorthern [facility] 2024 10:06pl384 mmol/V01-918Wiurxf Dioxide LevelSeptnorthern cochise community hospital 2024 10:16amSeptnorthern cochise community [facility] 2024 10:16am26.4 mmol/L21.0-32.0CreatinineSeptnorthern coch[facility] community [facility] 2024 10:16amSeptnorthern cochise community [facility] 2024 10:16am0.79 mg/dL0.55-1.02Estimated GFR ()December 01, 2024 10:16amSeptnorthern cochise community [facility] 2024 10:16am>60 >=60 mL/min/1.73m 2Estimated GFR (Non- AmericanSeptember 2024 10:16amSept2024 10:16am>60>=60 mL/min/1.73m 2Glucose LevelSeptnorthern cochise [facility] hospital 2024 10:16amSept2024 10:16am87 mg/jQ74-759Xvlqxrlsq Level December 01, 2024 10:16amSeptnorthern cochise community hospital 2024 10:16am4.5 mmol/L3.5-5.1Sodium LevelSeptnorthern cochise community hospital 2024 10:16amSeptnorthern cochise community hospital 2024 10:41le428 mmol/J389-613 Vital Signs Vital Reading Result Reference Range Collection Date/Time Height 70 [in_i] January 18, 2025 1:68hoEkuupk857.93 kgNovnorthern cochise community hospital 2024 1:44pmBody Vzywvhnxpjq43.1 [degF]97.6-99.0Novnorthern cochise community hospital 2024 1:44pmHeart Rate80 /ixo37-214 January 18, 2025 1:44pmRespiratory rate16 /hhb93-91Ootsygyi 2024 1:44pm Oxygen saturation by Pulse nkscilmw00 %95-100Novnorthern [facility]ch[facility] th, 2025 1:44pmBP Uobedrie306 mm[Hg]100-140January 18, 2025 1:44pmBP Yaiibwrng91 mm[Hg]60-100 January 18, 2025 1:44pmBMI (Body Mass Index)37.3 kg/z1OmukauqdJanuary 18, 2025 1:44esWyuosc77 [in_i]January 21, 2025 11:41enCebpgw322.11 kgNov[facility]20[facility] 11:39amHeart Rate80 /zju34-505NidgrpisJanuary 21, 2025 11:39amBP Zerzhcdw620 mm[Hg]100-140January 21, 2025 11:39amBP Arytgaycf34 mm[Hg]60-100January 21, 2025 11:39amBMI (Body Mass Index)36.7 kg/g8BrnwixxtJanuary 21, 2025 11:39am Iysdpz67 [in_i]February 13, 2025 11:60bdOzyntj032.75 kgDeceencompass health [facility] 2024 11:25amBody Fdjudnvpppd13.6 [degF]97.6-99.0Deceencompass health [facility] 2024 11:25amHeart Rate 84 /isr68-248Ndcmhzkh 12th, 2025 11:25amBP Tgnvsrmj98 mm[Hg]100-140Dece2024 11:25amBP Ahdccposg72 mm[Hg]60-100Deceencompass health [facility] 2024 11:25amBMI (Body Mass Index)36.3 kg/r2Yhlwkpdz 2024 11:25am Advance Directives Advance Directive Response Recorded Date/ Time Advance Directives No February 8:11am Insurance Providers Guarantor Verito Brennan Address [address] [facility] [address] Info.Home Phone: Coverage Status Update:2024 Payer Group Member ID Coverage Type Subscriber Relationship to Subscriber Effective Date Expiration Date MMO Id: [id number] Missler Id: [id number] [address] [facility] [facility] [address] Home Phone: Email: [email or web address] MCR Adv PFFS [id number] Anu Id: [id number] [address] [facility] [address] Home Phone: Email: [email or web address] Id: [id number] Anu Id: [id number] [address] [facility] [address] Home Phone: Email: [email or web address] Encounters Encounter Location(s) Arrival/Admit Date Discharge/Departure Date Discharge/Departure Disposition Provider(s) Non-patient / Non-visit -[facility] Professiondavid aguilar Wy December 01, 2024 11:16am Outside ProviderDeparted Physician/Provider Office Visit-[facility] January 18, 2025 1:42pmNov2024 2:17pmDischarged to home care or self care (routine discharge)Tahmina Bethea APRNDeparted Physician/Provider [facility] 11:38amNovember 2024 12:14pmDischarged to home care or self care (routine discharge)GREGORIA Murilloeparted Physician/Provider Office Visit-[facility] February 13, 2025 11:20amDecember 2024 11:53amDischarged to [...] of anterior chest wallacuteJanuary 18, 2025 1:42pmBreast abscessacuteNov[facility]2024 11:38amClass 2 obesity with body mass index (BMI) of 36.0 to 36.9 in adultacuteJanuary 21, 2025 11:38am FolliculitisacuteJanuary 21, 2025 11:38amLipoma of anterior chest wallacute January 21, 2025 11:38amLumbar degenerative disc diseaseacuteNov2024 11:38am Plan of Treatment Author Veronica Gonzalez [facility] 2024 2:38pmDiscussed with patient differential of [...] or new onset fevers. Author Estefani Em [facility] 2024 12:41pmWegovy sent to pharmacy. Followup [...]
--- OUTSIDE RECORDS SUMMARY | 2025-02-18 17:39 | XMS_ITS | Clinical Summary ---
Author Organization [facility] Address [address] [place] [address] Care Team Providers Care Paper Making Machine Operator Name Role Phone Estefani Em MD Primary Care Provider [phone] Allergies Active AllergyReactionsCriticalityNoted DateCommentsPenicillinsNausea and aqrvjpemPuh21/03/2015 headache SrxfaytbnbHrsxIzd74/26/2023 Medications MedicationSigDispense QuantityRefillsLast FilledStart DateEnd DateStatus loratadine [...] mouth daily .Active naloxone (NARCAN) 4 mg/actuation [place] Administer 1 spray into one nostril for [...] 180 tablet 5Active Active Problems ProblemNoted DateDiagnosed CjahWusucwkoet34/07/2023Failed back syndrome, yyvdjejxqnz85/26/2023 Assessment & Plan (07/26/2022 2:57 PM EDT): 08/01/2022 0850 Scheduled Edgar Dhaliwal MD Bilateral Insertion Trial Spinal Cord Stimulator via Fluoroscopic T12-L2 Approach Mdcrhitcr27/29/4801Yynvbdm10/31/2022 Assessment & Plan (01/02/2022 10:41 AM EDT): Okay to take her as needed Xanax morning of surgery if needed. Rbkdyycdttxe42/23/2022 Assessment & Plan (07/26/2022 2:58 PM EDT): [...] found to have a new LBBB in [facility] last year and was sent to [...] she was sent to cardiology by the [facility] department for an abnormal EKG with [...] is 31.85 kg/m??. Lumbar disc herniation with ihzflofhtlmzh25/21/2022 Assessment & Plan (01/02/2022 10:41 AM EDT): [...] day smoker. Cessation is advised. Encounters DateTypeDepartmentCare CpiqLxpjqqrpzqg84/13/2025Refill [facility] [address] [facility], 3rd [place] [address] Tamie Enrique MA Medication Eftbpg9812/01/2024Travelfrom Last 3 Months Family History Medical HistoryRelationCommentsAtrial [...] Recorded Sex Assigned at BirthNot on fileLegal KomWsbnfi77/16/2021 3:24 PM ESTGender IdentityNot on fileSexual OrientationNot on file Last Filed Vital Signs Vital SignReadingTime TakenCommentsBlood Bonffmbx122/7908 11:36 AM EDT Kkkma303110/29/2024 11:36 AM LPZVwitnyjqdnl75.6 ??C (97.8 ??F)10/29/2024 9:38 AM EDTRespiratory Jinu786210/29/2024 9:38 AM EDTOxygen Phdbxbwvgp16%10/29/2024 11:36 AM EDTInhaled Oxygen Concentration--Jbzlvo238 kg (238 lb)06/19/2023 1:34 PM EDT Reimoh653.8 cm (5' 10 )10/06/2024 10:49 AM EDTBody Mass Index34.15006/19/2023 1:34 PM EDT Plan of Treatment Health MaintenanceDue DateLast DoneCommentsCT Lagphmctfcel1964Colonoscopy 1965Colorectal Cancer Screening/Wutyerbojn1964Fecal DNA1965 Fecal occult blood test (FOBT,FIT)1965Medicare Wellness Visit02/18/1967 Depression Screening/Follow-Up (PHQ-2/9)1976HIV Pyyudfnsj94/17/1979 Hepatitis C Xqriibmua62/17/1982Pneumococcal Vaccine: 50+ Years (1 of 2 - PCV) 02/18/1983Tetanus/Diphtheria/Pertussis (1 - Tdap)02/18/1983Pap Smear02/18/1985 Cervical Cancer Bwahzxsgg32/17/1994HPV/Jsqidb0202/18/19946471Llzjbjzcz57/17/2004 Flexible snlgejnzxxhva61/17/2014RSV Vaccines (1 - Risk 50-74 years 1-dose series)02/18/2014Zoster Vaccines (1 of 2)02/18/2014COVID-19 Vaccine (4 - season)/12/2020, 06/25/2020, 05/28/2020Influenza Vaccine (#1) 2024HIB VaccinesAged OutNo [...] on [facility] LumbarBAXTER [id number] / NA / [id number] 4 X 8in Surgicel - Sna Implanted:Qty: 1 on 01/13/2022 [facility] Spine [id number] / NA / [id number] 2 X 4in Surgicel Fibrillar - Sna Implanted:Qty: 1 on 01/13/2022 [facility] Spine [id number] / NA / [id number] 8 X 12.5cm X 10mm Surgifoam Gelatin Sponge - Sna Implanted:Qty: 1 on 01/13/2022 [facility] Spine [id number] / NA / [id number] 8ml Matrix Hemostatic W/Thrombin Surgiflo - Sn/A Implanted:Qty: 1 on 08/24/2022 by Edgar Dhaliwal MD at [facility] EtykdjsqFSDCOTX05/31/[id number] / N/A / [id number] Neurostimulator Implantable Xr5 Proclaim - Roau927.1 Implanted:Qty: 1 on 08/24/2022 by Edgar Dhaliwal MD at [facility]04//[id number] / RNX297.1 / N/ADescription:MRI system type 1.5T cylindrical-bore magnet, [...] vibration is experienced. Lead 60cm Penta - [id number] Implanted:Qty: 1 on 08/24/2022 by Edgar Dhaliwal MD at [facility] [id number] / [id number] / N/ADescription:MRI system type 1.5T cylindrical-bore magnet, [...] on 08/24/2022 by Edgar Dhaliwal MD at [facility] [id number] / N/A / [id number] 4 X 8in Surgicel - Sn/A Implanted:Qty: 1 on 08/24/2022 by Edgar Dhaliwal MD at [facility] [id number] / N/A / [id number] 8 X 12.5cm X 10mm Surgifoam Gelatin Sponge - Sn/A Implanted:Qty: 1 on 08/24/2022 by Edgar Dhaliwal MD at [facility] XctlpyphYCDWZEE60/07/[id number] / N/A / [id number]rgfzvMkdgky IdentifierShelf Expiration DateModel / Serial / LotLead 60cm Perc Octrode Trial - [id number] Implanted:Qty: 1 on 08/01/2022 by [facility]: Spine ThoracicST BRANDI SC04/24/[id number] / [id number] / NALead 60cm Perc Octrode Trial - [id number] Implanted:Qty: 1 on 08/01/2022 by [facility]: Spine ThoracicST BRANDI SC06/28/54815746 / [id number] / NA Insurance Advance Directives For more information, please contact: [phone] * Full Code (Latest Code Status on File) Date ActivatedDate InactivatedComments08/24/2022 2:45 PM08/25/2022 3:50 PM * Full Code Date ActivatedDate InactivatedComments08/23/2021 9:22 AM08/23/2021 10:20 AM Care Teams Team MemberRelationshipSpecialtyStart DateEnd Date Estefani Em MD [address] [place] [address] PCP - GeneralFamily Tyewstzm35/16/21
--- OUTSIDE RECORDS SUMMARY | 2025-02-18 17:39 | XMS_ITS | Clinical Summary ---
Author Organization [facility] Address [address] [place] [address] Care Team Providers Care Weapons Engineer Name Role Phone Estefani Em MD Primary Care Provider [phone] Medications No known medications Active Problems No known active problems Social History Tobacco UseTypesPacks/DayYears UsedDateSmoking Tobacco: Unknown Tobacco Cessation:Counseling Given: Yes Alcohol UseStandard Drinks/WeekCommentsDefer0 (1 standard drink = 0.6 oz pure alcohol)CommentsUnknownSex and Gender InformationValueDate RecordedSex Assigned at BirthNot on fileLegal VxjDtpstr28/15/2023 6:39 PM EDTGender Identity Not on fileSexual OrientationNot on file Last Filed Vital Signs Vital SignReadingTime TakenCommentsBlood Vzlbtqfn822/7710 10:43 AM EDT Dkxrc723712/20/2023 10:43 AM EDTTemperature--Respiratory Rawj824311/22/2023 12:08 PM EDTOxygen Saturation--Inhaled Oxygen Concentration--Rhoywz683 kg (221 lb) 12/20/2023 10:43 AM DRSCdwphu014.8 cm (5' 10 )12/20/2023 10:43 AM EDTBody Mass Index31.7112/20/2023 10:43 AM EDT Plan of Treatment Not on file Insurance Care Teams Team MemberRelationshipSpecialtyStart DateEnd Date Estefani Em MD PCP - GeneralFamily Medicine10/11/23
[2025-02-18] MEDS: METHYLPREDNISOLONE SOD SUCC PF 125 MG/2 ML VIAL IVP (17:44)
[2025-02-18 17:54] LABS: Hematocrit 43.7 % (36.0-48.0); Hemoglobin 14.7 g/dL (12.0-16.0); Immature Granulocytes Abs Auto 0.02 10^3/uL (0.00-0.03); Immature Granulocytes Pct Auto 0.2 % (0.0-0.5); Lymphocytes Absolute Auto 2.3 10^3/uL (1.2-3.8); Mean Corpuscular HGB Conc 33.6 g/dL (29.9-35.2); Mean Corpuscular Hemoglobin 30.6 pg (26.7-34.0); Mean Corpuscular Volume 91.0 fL (81.0-99.0); Platelet Count 219 10^3/uL (150-450); Red Blood Count 4.80 10^6/uL (4.20-5.40); White Blood Count 9.5 10^3/uL (4.0-11.0)
[2025-02-18 18:11] LABS: Alanine Aminotransferase 34 U/L (14-59); Albumin Globulin Ratio 1.0; Albumin Level 4.0 g/dL (3.4-5.0); Alkaline Phosphatase 138 U/L (46-116); Anion Gap 10.7; Aspartate Amino Transferase 18 U/L (15-37); Blood Urea Nitrogen 9.0 mg/dL (7.0-18.0); Calcium 9.1 mg/dL (8.5-10.1); Carbon Dioxide 28.5 mmol/L (21.0-32.0); Chloride 105 mmol/L (98-107); Estimated GFR (African America >60 (>=60 mL/min/1.73m^2); Estimated GFR (Non-African Ame >60 (>=60 mL/min/1.73m^2); Globulin 4.0 g/dL; Glucose 69 mg/dL (74-106); Potassium 4.2 mmol/L (3.5-5.1); Sodium 140 mmol/L (136-145); Total Protein 8.0 g/dL (6.4-8.2)
[2025-02-18 18:20] LABS: NT Pro B Type Natriuretic Pept 701.0 pg/mL (<=900.0)
--- NOTE | 2025-02-18 18:56 | CT_ITS ---
The [address] [address] Patient Name: BORIS LIU MRN: [id number] date: 1965 Sex: F Assigned Patient Location: ER Current Patient Location: ER Accession/Order Number: [id number] Exam Date: 02/18/2025 19:08 Report Date: 02/18/2025 19:43 At the request of: ELVIA BORRERO Procedure: CT angio chest CT angio chest 02/18/2025 7:15 PM SIGN AND SYMPTOMS: Cough, shortness of breath CONTRAST: 100 mL of intravenous Omnipaque 350 TECHNIQUE: Multidetector CT axial slices of the chest were obtained with IV contrast. Multiplanar and 3-D reformats were performed and viewed on a separate workstation and reviewed to further define anatomy and possible pathology. CT was performed with one or more of the following dose reduction techniques: Automated exposure control, adjustment of the mA and/or kV according to patient size, or use of iterative reconstruction technique. COMPARISON: 01/04/2020. FINDINGS: Lower neck: Thyroid gland within normal limits, no supraclavicle adenopathy. Vessels: Atherosclerotic changes are noted in the thoracic aorta and origins of great vessels. There is no evidence of pulmonary embolism. Mediastinum and [place]: Within normal limits. Heart: Normal size. No pericardial effusion. Airways: Within normal limits Lungs: There is scarring in the lung apices. Pleura: Within normal limits. Chest Wall: Within normal limits. Upper Abdomen: Within normal limits. Bones: Within normal limits. There is a spinal cord stimulator posteriorly. CT/CT angio chest IMPRESSION: There is no evidence of pulmonary embolism. No acute cardiopulmonary pathology. Impression dictated by: Herberth Lucas M.D. 02/18/2025 7:43 PM Dictation Location: [facility] Electron[facility] authenticated by: [id number] Y Date: 02/18/2025 19:43
== END 2025-02-18 20:17 | disposition home or self-care (01) ==
PROVIDERS: Nurse Practitioner Family; Emergency Provider Emergency Medicine; PCP Family Medicine
DX: J06.9 Acute upper respiratory infection, unspecified (principal); I50.9 Heart failure, unspecified; F17.200 Nicotine dependence, unspecified, uncomplicated
CPT/HCPCS: 36415; 71045; 71275; 80053; 83880; 85025; 87804; 87811; 93005; 94640; 96374; 99284; J2919; Q9967

== ENCOUNTER 2025-02-22 12:24 | Emergency (ER) | payer MEDICARE, SELFPAY ==
[2025-02-22] VITALS (13 sets, daily range): BP systolic 118–124; BP diastolic 69–74; PULSE 88–103; TEMP 36.8; O2SAT 93–96; BMI 35.9
--- NOTE | 2025-02-22 12:42 | XR_ITS ---
The [place] [id number] Patient Name: BORIS LIU MRN: [id number] date: 1965 Sex: F Assigned Patient Location: ED.MAIN Current Patient Location: ED.MAIN Accession/Order Number: [id number] Exam Date: 02/22/2025 13:15 Report Date: 02/22/2025 13:33 At the request of: ALMA DORSEY MD Procedure: XR chest 1V Single view chest: CLINICAL HISTORY: SOB COMPARISON: None FINDINGS: The heart is normal in size. The lungs are clear. The pulmonary vasculature is normal. Mediastinum and hilar regions are unremarkable. No pleural effusions are seen. Visualized bones are intact. XR/XR chest 1V IMPRESSION: NO ACUTE PROCESS. Impression dictated by: Rolando Stanford Jr.OBan 02/22/2025 1:33 PM Dictation Location: [place] [address] Electronically authenticated by: [id number] Y Date: 02/22/2025 13:33
--- NOTE | 2025-02-22 12:42 | ECG_ITS ---
The [facility] Test Date: 2025-02-22 Pat Name: BORIS LIU Department: Room: - Gender: Female Tank Cooper: : 1965 Requested By: 1030 Order Number: [id number] Reading MD: ANDREWS HERNANDEZ M.D. Measurements Intervals [place] Rate: 94 P: 76 MT: 174 QRS: 78 QRSD: 146 T: 66 QT: 432 QTc: 484 Interpretive Statements 1100 Sinus rhythm 2550 Left bundle branch block 7300 Indeterminate axis 9150 abnormal ECG Compared to ECG 02/18/2025 17:18:30 Indeterminate axis now present Sinus tachycardia no longer present Electronically Signed On 02-22-2025 13:48:28 EST by ANDREWS HERNANDEZ M.D.
--- NOTE | 2025-02-22 12:44 | ED.GENADUL1 ---
HPI HPI - General Adult General Chief complaint: Shortness of Breath/Dyspnea Stated complaint: TROUBLE BREATHING Time Seen by Provider: 02/22/25 12:36 Source: patient Mode of arrival: Wheelchair History of Present Illness HPI narrative: 60-year-old female presents for difficulty breathing. She has been feeling this way for 3 weeks. She was on Zithromax and then was prescribed Biaxin on February 17. She was here 4 days ago and had a negative chest x-ray and a negative CTA and was prescribed oral steroid but she did not take it. She used her inhaler last time about an hour ago. No known fever. Related Data Home Medications ?Medication ?Instructions ?Recorded ?Confirmed albuterol sulfate 90 mcg/actuation 2 inh inhalation Q4H PRN shortness 10/21/23 02/22/25 aerosol inhaler (Ventolin HFA) of breath or wheezing aspirin 81 mg chewable tablet 81 mg PO DAILY 10/21/23 02/22/25 (Issac Chewable Low Dose Aspirin) atorvastatin 20 mg tablet 20 mg PO DAILY 10/21/23 02/22/25 famotidine 20 mg tablet 20 mg PO DAILY 02/04/25 02/22/25 loratadine 10 mg tablet 10 mg PO DAILY 02/04/25 02/22/25 metoprolol succinate 50 mg 50 mg PO DAILY 02/04/25 02/22/25 tablet,extended release 24 hr sacubitril 49 mg-valsartan 51 mg 1 tab PO DAILY 02/04/25 02/22/25 tablet sertraline 25 mg tablet 25 mg PO Q24H 02/04/25 02/22/25 tizanidine 4 mg capsule 8 mg PO BID PRN muscle spasticity 02/04/25 02/22/25 Previous Rx's ?Medication ?Instructions ?Recorded benzonatate 100 mg capsule 100 mg PO TID PRN cough #20 caps 02/18/25 dexamethasone 6 mg tablet 6 mg PO DAILY #7 tabs 02/18/25 guaifenesin 600 mg tablet, 600 mg PO BID PRN congestion #12 02/18/25 extended release 12 hr (Mucinex) tabs albuterol sulfate 2.5 mg/3 mL 2.5 mg (3 mL) inhalation Q6H PRN 02/22/25 (0.083 %) solution for nebulization shortness of breath or wheezing #90 mL Allergies Allergy/AdvReac Type Severity Reaction Status Date / Time Penicillins Allergy Mild Rash Verified 02/04/25 12:33 prednisone Allergy Mild Rash Verified 02/04/25 12:33 Review of Systems ROS Narrative A ten point review of systems is negative except as noted above. [facility] Medical History (Updated 02/22/25 @ 13:57 by Enio Gee MD) Epidermal cyst ?L72.0 - Epidermal cyst (ICD-10) Endometriosis ?N80.9 - Endometriosis, unspecified (ICD-10) Decreased cardiac ejection fraction ?R93.1 - Abnormal findings on diagnostic imaging of heart and coronary circulation (ICD-10) Arthritis ?M19.90 - Unspecified osteoarthritis, unspecified site (ICD-10) DDD (degenerative disc disease) Back pain ?M54.9 - Dorsalgia, unspecified (ICD-10) Anxiety ?F41.9 - Anxiety disorder, unspecified (ICD-10) Panic attacks ?F41.0 - Panic disorder [episodic paroxysmal anxiety] (ICD-10) GERD (gastroesophageal reflux disease) ?K21.9 - Gastro-esophageal reflux disease without esophagitis (ICD-10) High cholesterol ?E78.00 - Pure hypercholesterolemia, unspecified (ICD-10) Hypertension ?I10 - Essential (primary) hypertension (ICD-10) Congestive heart failure ?I50.9 - Heart failure, unspecified (ICD-10) Dyspnea on exertion ?R06.09 - Other forms of dyspnea (ICD-10) LBBB (left bundle branch block) ?I44.7 - Left bundle-branch block, unspecified (ICD-10) Myocardial infarction ?I21.9 - Acute myocardial infarction, unspecified (ICD-10) Surgical History History of lumbar laminectomy ?Z98.890 - Other specified postprocedural states (ICD-10) History of lumbosacral spine surgery ?Z98.890 - Other specified postprocedural states (ICD-10) History of hemorrhoidectomy ?Z98.890 - Other specified postprocedural states (ICD-10) History of foot surgery ?Z98.890 - Other specified postprocedural states (ICD-10) S/P cystoscopy ?Z98.890 - Other specified postprocedural states (ICD-10) History of colonoscopy ?Z98.890 - Other specified postprocedural states (ICD-10) History of cardiac catheterization ?Z98.890 - Other specified postprocedural states (ICD-10) Family History (Updated 02/04/25 @ 12:37 by Maye Ramos NP) Other Family history of diabetes mellitus Family history of heart disease Family history of hypertension Family history of myocardial infarction Family history of renal failure Family history of stroke Multiple myeloma Social History (Updated 02/04/25 @ 12:36 by Maye Ramos NP) Within the past year, how often did you have a drink containing alcohol: monthly or less Smoking status: Current some day smoker Highest level of school completed/degree received: high school graduate Little interest or pleasure in doing things: not at all Feeling down, depressed, or hopeless: not at all Exam Narrative Exam Narrative: Nurses note and vital signs reviewed General:The patient appears in no acute distress although she appears mildly dyspneic. Skin:Warm, dry, no pallor noted.There is no rash noted. Head:Normocephalic, atraumatic Eye: Normal conjunctiva, no drainage Ears, Nose, Mouth, and Throat: oral mucosa is moist. Nares patent. Cardiovascular:Regular Rate and Rhythm Respiratory:Patient is in no distress, no accessory muscle use, lungs show a few and expiratory rhonchi Back:non-tender GI: Soft and nontender Musculoskeletal: The patient has no evidence of calf tenderness, no pitting edema, symmetrical pulses noted bilaterally Neurological:A&O, normal speech Psychiatric:Cooperative Constitutional Vital Signs, click to edit/add: Last Vital Signs Temp 98.3 F 02/22/25 12:28 Pulse 88 02/22/25 13:53 Resp 20 02/22/25 13:53 BP 121/69 02/22/25 13:36 Pulse Ox 95 02/22/25 13:53 O2 Del Method Room Air 02/22/25 13:01 Course Vital Signs Vital signs: Vital Signs Temperature 98.3 F 02/22/25 12:28 Pulse Rate 103 H 02/22/25 12:28 Respiratory Rate 24 H 02/22/25 12:28 Blood Pressure 118/74 02/22/25 12:28 Pulse Oximetry 95 02/22/25 12:28 Oxygen Delivery Method Room Air 02/22/25 12:28 Temperature 98.3 F 02/22/25 12:28 Pulse Rate 88 02/22/25 13:53 Respiratory Rate 20 02/22/25 13:53 Blood Pressure 121/69 02/22/25 13:36 Pulse Oximetry 95 02/22/25 13:53 Oxygen Delivery Method Room Air 02/22/25 13:01 Medical Decision Making MDM Narrative Medical decision making narrative: Her workup is negative including COVID, influenza, and chest x-ray. She felt better after nebulized treatment. She is being discharged home with a prescription for a nebulizer and albuterol for it. She was prescribed steroids the other day and has been at home and she was encouraged to take them. Differential Diagnosis Differential Diagnosis: Pneumonia, viral URI, COVID, influenza Lab Data Lab results reviewed: Yes I reviewed the patient's lab results Labs: Lab Results 02/22/25 02/22/25 Range/Units 12:48 12:51 WBC 9.9 (4.0-11.0) 10^3/uL RBC 4.54 (4.20-5.40) 10^6/uL Hgb 14.2 (12.0-16.0) g/dL Hct 41.6 (36.0-48.0) % MCV 91.6 (81.0-99.0) fL MCH 31.3 (26.7-34.0) pg MCHC 34.1 (29.9-35.2) g/dL RDW 13.0 (11.0-15.0) % Plt Count 251 (150-450) 10^3/uL MPV 11.3 (9.5-13.5) fL Neut % (Auto) 61.5 (43.0-75.0) % Lymph % (Auto) 24.4 (20.5-60.0) % [place] % (Auto) 8.4 (1.7-12.0) % Eos % (Auto) 5.2 (0.9-7.0) % Baso % (Auto) 0.2 (0.2-2.0) % Neut # (Auto) 6.1 (1.4-6.5) 10^3/uL Lymph # (Auto) 2.4 (1.2-3.8) 10^3/uL [place] # (Auto) 0.8 (0.3-0.8) 10^3/uL Eos # (Auto) 0.5 (0.0-0.7) 10^3/uL Baso # (Auto) 0.0 (0.0-0.1) 10^3/uL Abs Immat Gran (auto) 0.03 (0.00-0.03) 10^3/uL Imm/Tot Granulo (auto) 0.3 (0.0-0.5) % Sodium 144 (136-145) mmol/L Potassium 4.3 (3.5-5.1) mmol/L Chloride 105 (98-107) mmol/L Carbon Dioxide 27.0 (21.0-32.0) mmol/L Anion Gap 16.3 BUN 11.0 (7.0-18.0) mg/dL Creatinine 0.89 (0.55-1.02) mg/dL Est GFR ( Amer) >60 (>=60 mL/min/1.73m^2) Est GFR (Non-Af Amer) >60 (>=60 mL/min/1.73m^2) BUN/Creatinine Ratio 12.4 Glucose 113 H (74-106) mg/dL Calcium 8.7 (8.5-10.1) mg/dL Troponin I High Sens 6.0 (4.0-51.3) pg/mL Influenza Type A Ag Negative Influenza Type B Ag Negative SARS-CoV-2 Ag (CV2AG) Negative (NEGATIVE) Imaging Data Chest x-ray: Radiologist's impression: ITS Impressions Chest X-Ray 02/22/25 12:42 IMPRESSION: NO ACUTE PROCESS. Impression dictated by: Chay Ash Jr., D.O. 02/22/2025 1:33 PM Dictation Location: [place] [address] Electronically authenticated by: [id number] Y Date: 02/22/2025 13:33 ECG Data Attestation: I personally reviewed and interpreted this ECG as follows: (EKG on my interpretation shows sinus rhythm with a left bundle branch block and a rate of 94.) Discharge Plan Discharge Chief Complaint: Shortness of Breath/Dyspnea Clinical Impression: Upper respiratory infection, viral Patient Disposition: Home, Self-Care Time of Disposition Decision: 13:57 Condition: Good Mode of Transportation: Private Vehicle Prescriptions / Home Meds: New albuterol sulfate 2.5 mg /3 mL (0.083 %) solution for nebulization 2.5 mg inhalation Q6H PRN (Reason: shortness of breath or wheezing) Qty: 90 0RF No Action albuterol sulfate [Ventolin HFA] 90 mcg/actuation HFA aerosol inhaler 2 inh INHALATION Q4H PRN (Reason: shortness of breath or wheezing) atorvastatin 20 mg tablet 20 mg PO DAILY aspirin [Issac Chewable Aspirin] 81 mg tablet,chewable 81 mg PO DAILY sertraline 25 mg tablet 25 mg PO Q24H metoprolol succinate 50 mg tablet extended release 24 hr 50 mg PO DAILY sacubitril-valsartan 49-51 mg tablet 1 tab PO DAILY famotidine 20 mg tablet 20 mg PO DAILY loratadine 10 mg tablet 10 mg PO DAILY tizanidine 4 mg capsule 8 mg PO BID PRN (Reason: muscle spasticity) dexamethasone 6 mg tablet 6 mg PO DAILY Qty: 7 0RF benzonatate 100 mg capsule 100 mg PO TID PRN (Reason: cough) Qty: 20 0RF guaifenesin [Mucinex] 600 mg tablet extended release 12hr 600 mg PO BID PRN (Reason: congestion) Qty: 12 0RF Print Language: [place] Instructions: Upper Respiratory Infection (ED) Additional Instructions: Take the oral steroid that was prescribed to you at your last visit. Referrals: Estefani Em MD [Primary Care Provider, Family Practice] - 1 week
[2025-02-22] MEDS: METHYLPREDNISOLONE SOD SUCC PF 125 MG/2 ML VIAL IVP (12:54)
[2025-02-22] MEDS: ALBUTEROL SULFATE 2.5 MG/3 ML VIAL NEB IH (12:59)
[2025-02-22 13:15] LABS: Hematocrit 41.6 % (36.0-48.0); Hemoglobin 14.2 g/dL (12.0-16.0); Immature Granulocytes Abs Auto 0.03 10^3/uL (0.00-0.03); Immature Granulocytes Pct Auto 0.3 % (0.0-0.5); Lymphocytes Absolute Auto 2.4 10^3/uL (1.2-3.8); Mean Corpuscular HGB Conc 34.1 g/dL (29.9-35.2); Mean Corpuscular Hemoglobin 31.3 pg (26.7-34.0); Mean Corpuscular Volume 91.6 fL (81.0-99.0); Platelet Count 251 10^3/uL (150-450); Red Blood Count 4.54 10^6/uL (4.20-5.40); White Blood Count 9.9 10^3/uL (4.0-11.0)
--- OUTSIDE RECORDS SUMMARY | 2025-02-22 13:16 | XMS_ITS | Clinical Summary ---
Author Organization [facility] Address [address] [place] [address] Care Team Providers Care Smoke Tester Name Role Phone Estefani Em MD Primary Care Provider [phone] Allergies Active AllergyReactionsCriticalityNoted DateCommentsPenicillinsNausea and cpmslpjcPxr35/03/2015 headache VkfgnlfwtpVembNrt99/26/2023 Medications MedicationSigDispense QuantityRefillsLast FilledStart DateEnd DateStatus loratadine [...] mouth daily .Active naloxone (NARCAN) 4 mg/actuation Juliaetta Administer 1 spray into one nostril for [...] 180 tablet 5Active Active Problems ProblemNoted DateDiagnosed BrvgVyajaeotjl90/07/2023Failed back syndrome, wcijsrmsopf88/26/2023 Assessment & Plan (07/26/2022 2:57 PM EDT): 08/01/2022 0850 Scheduled Edgar Dhaliwal MD Bilateral Insertion Trial Spinal Cord Stimulator via Fluoroscopic T12-L2 Approach Nmablwsox70/29/4842Ddyazyl35/31/2022 Assessment & Plan (01/02/2022 10:41 AM EDT): Okay to take her as needed Xanax morning of surgery if needed. Dtpmftmifwvi65/23/2022 Assessment & Plan (07/26/2022 2:58 PM EDT): [...] found to have a new LBBB in [facility] last year and was sent to cardiology. [...] she was sent to cardiology by the [facility] department for an abnormal EKG with preop [...] is 31.85 kg/m??. Lumbar disc herniation with gcwitfexpiouj37/21/2022 Assessment & Plan (01/02/2022 10:41 AM EDT): [...] day smoker. Cessation is advised. Encounters DateTypeDepartmentCare ZkmzTqrtwhhuyfd23/13/2025Refill [facility] [address] [facility], 3rd [place] [address] Tamie Enrique MA Medication Pzsenu0512/01/2024Travelfrom Last 3 Months Family History Medical HistoryRelationCommentsAtrial [...] Recorded Sex Assigned at BirthNot on fileLegal SgkJwjmgr42/16/2021 3:24 PM ESTGender IdentityNot on fileSexual OrientationNot on file Last Filed Vital Signs Vital SignReadingTime TakenCommentsBlood Obtuovcv587/7908 11:36 AM EDT Fxyyz129910/29/2024 11:36 AM ZYMSbrnumyzxag29.6 ??C (97.8 ??F)10/29/2024 9:38 AM EDTRespiratory Yxtb102610/29/2024 9:38 AM EDTOxygen Jnyhwksxzs61%10/29/2024 11:36 AM EDTInhaled Oxygen Concentration--Cbhvai185 kg (238 lb)06/19/2023 1:34 PM EDT Opmqrb012.8 cm (5' 10 )10/06/2024 10:49 AM EDTBody Mass Index34.15006/19/2023 1:34 PM EDT Plan of Treatment Health MaintenanceDue DateLast DoneCommentsCT Vscbfrtqndrw1964Colonoscopy 1964Colorectal Cancer Screening/Viswmqeflb1964Fecal DNA1964 Fecal occult blood test (FOBT,FIT)1964Medicare Wellness Visit02/18/1967 Depression Screening/Follow-Up (PHQ-2/9)1976HIV Wvqgmdppe46/17/1979 Hepatitis C Fvahrqbcu34/17/1982Pneumococcal Vaccine: 50+ Years (1 of 2 - PCV) 02/18/1983Tetanus/Diphtheria/Pertussis (1 - Tdap)02/18/1983Pap Smear02/18/1985 Cervical Cancer Slmbdwmcz08/17/1994HPV/Ujhwlb2602/18/19940983Gsgvfwtrx70/17/2004 Flexible ulwmynvcaprks56/17/2014RSV Vaccines (1 - Risk 50-74 years 1-dose [...] on [facility]/13[facility]20[facility] Spine LumbarBAXTER [id number] / NA / [id number] 4 X 8in Surgicel - Sna Implanted:Qty: 1 on 01/13/2022 [facility]: Spine [id number] / NA / [id number] 2 X 4in Surgicel Fibrillar - Sna Implanted:Qty: 1 on 01/13/2022 [facility]: Spine [id number] / NA / [id number] 8 X 12.5cm X 10mm Surgifoam Gelatin Sponge - Sna Implanted:Qty: 1 on 01/13/2022 [facility]: Spine [id number] / NA / [id number] 8ml Matrix Hemostatic W/Thrombin Surgiflo - Sn/A Implanted:Qty: 1 on 08/24/2022 by Edgar Dhaliwal MD at [facility] IjookueaXNVVKUE04/31/[id number] / N/A / [id number] Neurostimulator Implantable Xr5 [employer]claim - Wcrv868.1 Implanted:Qty: 1 on 08/24/2022 by Edgar Dhaliwal MD at [facility]04//[id number] / PZT174.1 / N/ADescription:MRI system type 1.5T cylindrical-bore magnet, [...] vibration is experienced. Lead 60cm Penta - [id number] Implanted:Qty: 1 on 08/24/2022 by Edgar Dhaliwal MD at [facility] [id number] / [id number] / N/ADescription:MRI system type 1.5T cylindrical-bore magnet, [...] on 08/24/2022 by Edgar Dhaliwal MD at [facility] [id number] / N/A / [id number] 4 X 8in Surgicel - Sn/A Implanted:Qty: 1 on 08/24/2022 by Edgar Dhaliwal MD at [facility] [id number] / N/A / [id number] 8 X 12.5cm X 10mm Surgifoam Gelatin Sponge - Sn/A Implanted:Qty: 1 on 08/24/2022 by Edgar Dhaliwal MD at [facility] TkcurwktZRDGNGP24/07/[id number] / N/A / [id number]wsmdcUhggts IdentifierShelf Expiration DateModel / Serial / LotLead 60cm Perc Octrode Trial - [id number] Implanted:Qty: 1 on 08/01/2022 by [facility]: Spine ThoracicST BRANDI SC04/24/[id number] / [id number] / NALead 60cm Perc Octrode Trial - [id number] Implanted:Qty: 1 on 08/01/2022 by [facility]: Spine ThoracicST BRANDI SC06/28/82663491 / [id number] / NA Insurance Advance Directives For more information, please contact: [phone] * Full Code (Latest Code Status on File) Date ActivatedDate InactivatedComments08/24/2022 2:45 PM08/25/2022 3:50 PM * Full Code Date ActivatedDate InactivatedComments08/23/2021 9:22 AM08/23/2021 10:20 AM Care Teams Team MemberRelationshipSpecialtyStart DateEnd Date Estefani Em MD [address] [place] [address] PCP - GeneralFamily Hncfwojt56/16/21
--- OUTSIDE RECORDS SUMMARY | 2025-02-22 13:16 | XMS_ITS | Clinical Summary ---
Author Organization [facility] Address [address] [place], [place] [address] Care Team Providers Care Nursing Staff Development Coordinator Name Role Phone Estefani Em MD Primary Care Provider [phone] Allergies Active AllergyReactionsCriticalityNoted BmytPldouohsJgkcebuliegOykiuxm35/03/2015 Medications MedicationSigDispense QuantityRefillsLast FilledStart DateEnd DateStatus diphenhydrAMINE [...] InformationValueDate RecordedSex Assigned at BirthNot on fileLegal WzxFekpwq65/08/2015 9:13 AM EDTGender Identity Not on fileSexual OrientationNot on fileOccupationIndustryJob Start DateJob End Datewhirlpool , realtorNot on fileNot on fileNot on file Last Filed Vital Signs Vital SignReadingTime TakenCommentsBlood Eqnulois929/6111 9:17 AM EST Wdaaq5571 9:17 AM ESTTemperature--Respiratory Xich300903/29/2014 9:17 AM ESTOxygen Saturation--Inhaled Oxygen Concentration--Fzhcbj14.9 kg (185 lb) 01/27/2015 9:17 AM JUKOqtuhn790.8 cm (5' 10 )01/27/2015 9:17 AM ESTBody Mass Index26.5401/27/2015 9:17 AM EST Plan of Treatment Health MaintenanceDue DateLast DoneCommentsAnxiety Kotrvzkrt31/17/1982Depression Hcwonsldn59/17/1982HIV Zhkefgsam93/17/1982Hepatitis C Jkshzbhsb23/17/1982 DTaP,Tdap,Td Vaccine (1 - Tdap)02/18/1983Cervical Cancer Msahuqbcs59/17/1985 Mammogram Hghdfxmrr36/17/2004CT Welrexwmfmpg23/17/2009Cologuard (FIT-DNA) 02/18/20092811Qwwutakginy71/17/2009Colorectal Cancer Hdotflaox87/17/2009Diabetes Ettdvpivc24/17/2009Fecal Occult Blood02/18/2009Lipid Vsgwtdwqc53/17/2009 Mekciyiubmvcl91/17/2009Pneumococcal Vaccine: 50+ (1 of 1 - PCV)02/18/2014 Shingrix Vaccine (1 of 2)02/18/2014Covid-19 Vaccine (1 - season) 2024Influenza Vaccine (#1)2024RSV Vaccine (1 - 1-dose 75+ series) 02/18/2039 Care Teams Team MemberRelationshipSpecialtyStart DateEnd Date Estefani Em MD [address] [place] [id number] PCP - GeneralFamily Uozlawzq17/14/15
--- OUTSIDE RECORDS SUMMARY | 2025-02-22 13:16 | XMS_ITS | Clinical Summary ---
Author Organization [facility] Address [address] [place] [address] Care Team Providers Care Financial Services Representative Name Role Phone Estefani Em MD Primary Care Provider [phone] Medications No known medications Active Problems No known active problems Social History Tobacco UseTypesPacks/DayYears UsedDateSmoking Tobacco: Unknown Tobacco Cessation:Counseling Given: Yes Alcohol UseStandard Drinks/WeekCommentsDefer0 (1 standard drink = 0.6 oz pure alcohol)CommentsUnknownSex and Gender InformationValueDate RecordedSex Assigned at BirthNot on fileLegal HehQfoxjj59/15/2023 6:39 PM EDTGender Identity Not on fileSexual OrientationNot on file Last Filed Vital Signs Vital SignReadingTime TakenCommentsBlood Krwzsrhu056/7710 10:43 AM EDT Jjnvc706212/20/2023 10:43 AM EDTTemperature--Respiratory Yioa596511/22/2023 12:08 PM EDTOxygen Saturation--Inhaled Oxygen Concentration--Hplqzj592 kg (221 lb) 12/20/2023 10:43 AM TTLNcwfwr458.8 cm (5' 10 )12/20/2023 10:43 AM EDTBody Mass Index31.7112/20/2023 10:43 AM EDT Plan of Treatment Not on file Insurance Care Teams Team MemberRelationshipSpecialtyStart DateEnd Date Estefani Em MD PCP - GeneralFamily Medicine10/11/23
[2025-02-22 13:32] LABS: SARS-CoV-2 Ag NEGATIVE (NEGATIVE)
[2025-02-22 13:36] LABS: Anion Gap 16.3; Blood Urea Nitrogen 11.0 mg/dL (7.0-18.0); Calcium 8.7 mg/dL (8.5-10.1); Carbon Dioxide 27.0 mmol/L (21.0-32.0); Chloride 105 mmol/L (98-107); Estimated GFR (African America >60 (>=60 mL/min/1.73m^2); Estimated GFR (Non-African Ame >60 (>=60 mL/min/1.73m^2); Glucose 113 mg/dL (74-106); Potassium 4.3 mmol/L (3.5-5.1); Sodium 144 mmol/L (136-145)
== END 2025-02-22 14:25 | disposition home or self-care (01) ==
PROVIDERS: Emergency Provider Emergency Medicine; PCP Family Medicine
DX: J06.9 Acute upper respiratory infection, unspecified (principal); F17.200 Nicotine dependence, unspecified, uncomplicated
CPT/HCPCS: 36415; 71045; 80048; 84484; 85025; 87804; 87811; 93005; 94640; 96374; 99284; 99285; J2919